=== PATIENT | male | born 1965 | race Caucasian/White ===

== ENCOUNTER 2022-05-28 12:03 | Emergency (ER) | payer MEDICAID, SELFPAY ==
[2022-05-28 12:48] VITALS: BP 163/100; PULSE 91; RESP 18; TEMP 36.6; O2SAT 98; BMI 22.6
--- NOTE | 2022-05-28 14:13 | ED.BACK ---
HPI - Back Pain/Injury General Chief Complaint: Back Pain/Injury Stated Complaint: Fall/Back pain Time Seen by Provider: 05/28/22 14:13 Source: patient Mode of arrival: ambulatory History of Present Illness HPI Narrative: 56-year-old male with no significant past medical history presenting to the ED complaining of right arm right knee, and right-sided low back pain x2 years. States does not currently take any medications, he states he used to take medications 1 year ago. Is not from the area. Denies recent injury, trauma, fall, weakness, numbness, tingling, urinary incontinence/retention, fever MD elicited complaint: back pain Onset (ago): year(s) Related Data Previous Rx's Medication Instructions Recorded acetaminophen 500 mg tablet 500 mg PO Q6H PRN fever or pain 05/28/22 (Tylenol Extra Strength) #14 tabs cyclobenzaprine 5 mg tablet 5 mg PO Q8H PRN pain (scale score 05/28/22 7-10) 5 days #14 tabs lidocaine 5 % topical patch 1 patch topical DAILY PRN pain #30 05/28/22 (Lidoderm) ea naproxen 500 mg tablet 500 mg PO BID PRN pain 10 days #20 05/28/22 tabs Allergies Allergy/AdvReac Type Severity Reaction Status Date / Time No Known Allergies Allergy Verified 05/28/22 14:22 Review of Systems Review of Systems: Constitutional: No Fever, No Chills,No Fatigue, No Malaise ENT/Mouth: No Ear Pain, No Nasal Congestion, No Sinus Pain, No Hoarseness, No sore throat, No Rhinorrhea, No Swallowing Difficulty Eyes: No Eye Pain, No Swelling, No Redness, No Vision Changes Cardiovascular: No Chest Pain, No SOB, No Edema, No Palpitations Respiratory: No Cough, No Sputum, No Wheezing, No Smoke Exposure, No Dyspnea Gastrointestinal: No Nausea, No Vomiting, No Diarrhea, No Constipation, No Abdominal pain Genitourinary: No irregular bleeding, No Dysuria, No Urinary Frequency, No Hematuria, No Urinary Incontinence/retention, No Urgency, No Flank Pain, No Urinary Flow Changes, No Hesitancy Musculoskeletal: + joint pain, + Myalgias, No Joint Swelling Skin: No Skin Lesions, No rash Neuro: No Weakness, No Numbness, No Paresthesias, No Dizziness, No Headache Yes all other systems are reviewed and are negative Constitutional: Constitutional: Reports as per [facility] Past Medical History Attestation statement: The following information was validated with the patient. Social History Social History Advance Directives: No Advance Directives Information Provided: No Physical Exam Vital Signs: Vital Signs: Last Vital Signs Temp 98.9 F 05/28/22 15:51 Pulse 86 05/28/22 15:51 Resp 18 05/28/22 15:51 BP 114/79 05/28/22 15:51 Pulse Ox 100 05/28/22 15:51 O2 Del Method 05/28/22 15:51 BMI result Body Mass Index 22.6 Const: General: cooperative, healthy appearing and no acute distress Orientation/consciousness: patient oriented x3 Limitations: no limitations HEENT: Head: Yes normal to inspection and Yes atraumatic Ears: hearing grossly normal bilaterally General nose exam: Normal external nose present Face and sinus: Yes normal facial exam Eyes: General: appearance normal, both eyes and all related structures EOM: EOMs intact bilaterally Neck: Other: No midline cervical spinous tenderness Neck: Yes normal visual inspection, Yes full ROM and Yes no meningeal signs Resp: Effort & Inspection: normal respiratory effort and no respiratory distress Cardio: Rate: regular rate Heart sounds: S1 normal heart sound present and S2 normal heart sound present Peripheral pulses: Peripheral pulses 2+ throughout : General: Yes no CVA tenderness Back/Spine/Pelvis: Other: No midline thoracic/lumbar spinous tenderness/step-off or deformity. + mild right-sided lower lumbar MSK tenderness Back: no CVA tenderness Skin: Rashes: no rashes Wounds: no wounds Neuro: Other: Strength intact throughout. No saddle anesthesia. Sensation intact to light touch. Neurovascular intact distally. General: patient oriented x3, tone normal, moves all extremities, no meningeal signs and no focal motor deficits Gait exam (Neuro): Normal gait present Motor exam (neuro): 5/5 motor strength present throughout Extrem: Other: Right shoulder without deformity. Nontender to palpation. Full range of motion intact. Neurovascularly intact Right knee mildly tender, full range of motion intact. No deformity General: Yes normal to inspection, Yes full ROM and Yes capillary refill normal Course Course Course Narrative: -1554--BP improved after pain medication Results discussed with patient including worrisome signs and symptoms and strict return precautions, and when to return to the emergency department. They verbalized understanding and feel safe for discharge at this time. MDM - Back Pain/Injury MDM Narrative Medical decision making narrative: 56-year-old male with no significant past medical history presenting to the ED complaining of right arm right knee, and right-sided low back pain x2 years. On exam vital signs stable, NAD, nontoxic appearing, physical exam as above, no midline spinous tenderness throughout or red flag symptoms. Concern for acute on chronic musculoskeletal pain vs arthralgia vs osteoarthritis. Low suspicion for cauda equina, cord compression, dislocation, fracture or epidural abscess Plan: Symptomatic remedies, PCP follow-up Differential Diagnosis Differential diagnosis: Likely lumbar radiculopathy, sciatica and strain of lumbar region Medical Records Attestation: I reviewed the patient's medical records. Lab Data Attestation: I reviewed the patient's lab results. Discharge Plan Discharge Clinical Impression: Musculoskeletal pain Patient Disposition: Home, Self-Care Instructions: Musculoskeletal Pain (ED) Additional Instructions: Your pain is likely musculoskeletal Flexeril is a muscle relaxer, take at night as it makes you drowsy, do not drive, drink alcohol, or operate machinery while taking it Naproxen as an anti-inflammatory / pain medication, take with food Lidoderm patches are numbing patches, apply to painful area In addition take Tylenol at home If symptoms persist or worsen, pain becomes unbearable, you developed urinary retention or incontinence, or weakness return to the ED Es probable que jaffe dolor sea musculoesquel?negrito Flexeril es un relajante muscular, t?carlitos por la noche ya que te adormece, no conduzcas, bebas alcohol ni operes maquinaria mientras lo lilliam. Naproxeno maya medicamento antiinflamatorio/analg?sico, t?pro con alimentos Los parches de Lidoderm son parches anest?sicos, se aplican en el ?arian dolorida Adem?s aagta Tylenol en casa Si los s?ntomas persisten o empeoran, el dolor se vuelve insoportable, desarroll? retenci?n urinaria o incontinencia, o debilidad, regrese al servicio de urgencias. Prescriptions: New acetaminophen [Tylenol Extra Strength] 500 mg tablet 500 mg PO Q6H PRN (Reason: fever or pain) Qty: 14 0RF lidocaine [Lidoderm] 5 % adhesive patch,medicated 1 patch topical DAILY MDD remove after 12 hours PRN (Reason: pain) Qty: 30 0RF Rx Instructions: leave on most painful area for up to 12 hrs naproxen 500 mg tablet 500 mg PO BID PRN (Reason: pain) 10 Days Qty: 20 0RF cyclobenzaprine 5 mg tablet 5 mg PO Q8H PRN (Reason: pain (scale score 7-10)) 5 Days Qty: 14 0RF Referrals: [facility] [Primary Care Provider] - 1 week Print Language: Hungarian
[2022-05-28] MEDS: Cyclobenzaprine HCl 5 MG TABLET PO (15:04)
[2022-05-28] MEDS: Ketorolac Tromethamine 30 MG/ML VIAL IM (15:05)
[2022-05-28] MEDS: Lidocaine 4 % Patch ADH..PATCH 1 PATCH TRANSDERMA (15:06)
[2022-05-28 15:51] VITALS: BP 114/79; PULSE 86; RESP 18; TEMP 37.2; O2SAT 100
== END 2022-05-28 16:10 | disposition home or self-care (01) ==
PROVIDERS: Emergency Provider Emergency Medicine
DX: M54.50 Low back pain, unspecified (principal); Z79.899 Other long term (current) drug therapy
CPT/HCPCS: 96372; 99282; 99283; 99284; J1885

== ENCOUNTER 2022-06-06 15:42 | Outpatient (REF) | payer MEDICAID, SELFPAY ==
--- NOTE | ~2022-06-06 | XR_ITS ---
EXAMINATION: XR HIP, RIGHT CLINICAL INFORMATION: Right hip pain COMPARISON: Radiographs lumbar spine 06/06/2022 TECHNIQUE: Two views of the right hip. FINDINGS: There is severe osteoarthritis right hip with near complete loss of the superior joint space, subchondral sclerosis, and scattered prominent geodes. There is circumferential osteophytes base femoral head and spurring from the acetabulum. Small detached acetabular spur suggested superior lateral acetabular rim. No dislocation or destructive process. XR/XR hip RT min 2V IMPRESSION: Severe osteoarthritis right hip.
--- NOTE | ~2022-06-06 | XR_ITS ---
EXAMINATION: XR SHOULDER, RIGHT CLINICAL INFORMATION: Right shoulder pain COMPARISON: None TECHNIQUE: Right shoulder is imaged in 4 views. FINDINGS: No fracture, dislocation, destructive process. The glenohumeral joint appears normal. The acromioclavicular alignment is normal. There are mild degenerative changes acromioclavicular joint. Minor spurring from the greater tuberosity and superior lateral acromium. No visible rotator cuff calcifications. XR/XR shoulder RT min 2V IMPRESSION: 1. Mild degenerative changes acromioclavicular joint. 2. No visible rotator cuff calcifications.
--- NOTE | ~2022-06-06 | XR_ITS ---
EXAMINATION: XR KNEE, RIGHT CLINICAL INFORMATION: Right knee pain COMPARISON: None TECHNIQUE: Three views of the right knee. FINDINGS: No fracture, dislocation, or definite effusion. Hoffa's fat pad appears normal. No joint narrowing or erosive change or chondrocalcinosis. No lateralization or tilting patella. XR/XR knee RT 3V IMPRESSION: Unremarkable right knee.
--- NOTE | ~2022-06-06 | XR_ITS ---
EXAMINATION: XR LUMBOSACRAL SPINE WITH OBLIQUES CLINICAL INFORMATION: Low back pain COMPARISON: Radiographs right hip 06/06/2022 TECHNIQUE: Lumbar spine is imaged in 5 views: AP, lateral, lateral view coned to lumbosacral junction, and bilateral oblique. FINDINGS: Normal lumbar segmentation with 5 nonrib-bearing lumbar vertebrae of normal height and normal lumbar lordosis. No lumbar vertebral compression or destructive process. There are degenerative disc changes lower thoracic spine, T11-T12 with bridging anterior and lateral osteophytes and lesser degenerative disc changes at T12-L1. There are mild degenerative disc changes at L4-L5 with disc narrowing and grade 0-1 spondylolisthesis. Oblique view show no spondylolysis. The SI joints and visualized sacrum are unremarkable. There is marked right hip arthropathy as noted on the hip radiographs. XR/XR lumbar spine 4V min IMPRESSION: 1. Degenerative disc changes lower thoracic spine. 2. Mild degenerative disc changes L4-L5 with grade 0-1 spondylolisthesis. 3. No vertebral compression or destructive process. 4. Marked right hip arthropathy as noted on hip radiographs.
== END 2022-06-06 15:43 | disposition home or self-care (01) ==
LOC: HO.XRAY 15:42
PROVIDERS: Visit Provider Internal Medicine
DX: M25.561 Pain in right knee (principal); M25.551 Pain in right hip; M54.50 Low back pain, unspecified; M25.511 Pain in right shoulder
CPT/HCPCS: 72110; 73030; 73502; 73562

== ENCOUNTER 2022-06-28 09:31 | Outpatient (REF) | payer MEDICAID, SELFPAY ==
--- NOTE | ~2022-06-28 | XR_ITS ---
EXAMINATION: XR PELVIS CLINICAL INFORMATION: Pain COMPARISON: Right hip x-ray May 2022 TECHNIQUE: AP view of the pelvis. FINDINGS: There is severe right hip arthritis with joint space narrowing, osteophyte formation and subchondral cyst formation. There is mild left hip arthritis with small osteophytes and joint space narrowing. Bones of the pelvis are normal. Sacroiliac joints are normal. Soft tissues are normal. XR/XR pelvis 1-2V IMPRESSION: Severe right arthritis. Mild left hip arthritis.
== END 2022-06-28 09:32 | disposition home or self-care (01) ==
LOC: HO.HOSX 09:31
PROVIDERS: Visit Provider Orthopaedic Surgery
DX: M75.42 Impingement syndrome of left shoulder (principal); M16.11 Unilateral primary osteoarthritis, right hip
CPT/HCPCS: 20610; 72170; 99202; J1100

== ENCOUNTER 2022-07-13 09:43 | Emergency (ER) | payer MEDICAID, SELFPAY ==
--- NOTE | ~2022-07-13 | XR_ITS ---
EXAMINATION: XR CHEST CLINICAL INFORMATION: Chest pain, weakness and nausea. COMPARISON: None TECHNIQUE: 2 views of the chest were obtained. FINDINGS: No significant abnormality is noted involving the heart, lungs, mediastinum, bony thorax or soft tissues. XR/XR chest 2V IMPRESSION: No acute cardiopulmonary process.
[2022-07-13 09:59] VITALS: BP 155/83; BP 178/124; PULSE 93; PULSE 94; RESP 16; TEMP 36.8; O2SAT 96; O2SAT 97; BMI 32.3
--- NOTE | 2022-07-13 10:04 | ECG_ITS ---
Test Reason : COUGH Blood Pressure : / mmHG Vent. Rate : 090 BPM Atrial Rate : 090 BPM P-R Int : 152 ms QRS Dur : 088 ms QT Int : 348 ms P-R-T Axes : 066 -36 033 degrees QTc Int : 425 ms Normal sinus rhythm Left anterior fascicular block Nonspecific T wave abnormality Inferior leads Abnormal ECG No previous ECGs available Referred By: Bita Dennis Electronically Signed By:EDWARD KOO MD
--- NOTE | 2022-07-13 10:11 | ED_ITS ---
HPI - Chest Pain General Chief Complaint: Upper Respiratory Symptoms Stated Complaint: L SIDE PAIN W/COUGH Time Seen by Provider: 07/13/22 09:48 Source: patient Mode of arrival: ambulatory Limitations: no limitations History of Present Illness HPI narrative: Patient is a 57-year-old male presents to the emergency department for evaluation of cough with right lateral chest pain. He reports that the cough began yesterday, is mildly productive with clear. He states that this morning approximately 4 hours prior to arrival he developed pain to the right lower lateral chest after coughing. He states ?something pop?. Pain has been constant since then. The pain is made worse with movement, coughing pain on chaz p expiration. He denies any fall or precipitating injury recently that may have provoked this. Denies fevers, chills, nasal congestion, sore throat, anterior chest pain, shortness of breath, difficulty breathing, nausea, vomiting, abdominal pain. Denies any history of DVT/PE, personal history of cancer, prolonged immobilization, recent travel, calf pain, calf swelling or tenderness. Related Data Previous Rx's Medication Instructions Recorded acetaminophen 500 mg tablet 500 mg PO Q6H PRN fever or pain 05/28/22 (Tylenol Extra Strength) #14 tabs cyclobenzaprine 5 mg tablet 5 mg PO Q8H PRN pain (scale score 05/28/22 7-10) 5 days #14 tabs lidocaine 5 % topical patch 1 patch topical DAILY PRN pain #30 05/28/22 (Lidoderm) ea naproxen 500 mg tablet 500 mg PO BID PRN pain 10 days #20 05/28/22 tabs Allergies Allergy/AdvReac Type Severity Reaction Status Date / Time No Known Allergies Allergy Verified 06/28/22 10:27 Review of Systems Review of Systems: Constitutional : No Weight loss, No Fever, No Chills ENT/Mouth :? No sore throat, No Rhinorrhea Eyes: No Eye Pain, No Swelling Cardiovascular : pos Chest Pain, no SOB, no Dyspnea on Exertion, No Orthopnea, No Edema, No Palpitations Respiratory : Positive Cough, positive Sputum Gastrointestinal : pos Nausea, No Vomiting, No Diarrhea, No abdominal Pain, No Hematochezia, No Melena Genitourinary : No Dysuria, No Urinary Frequency Musculoskeletal : No joint pain, No Myalgias, No Joint Swelling Skin : No Skin Lesions, No rash Neuro : No Weakness, No Numbness, No Dizziness, No Headache Psych : No Anxiety/Panic, No Depression Yes all other systems are reviewed and are negative [facility] Past Medical History Attestation statement: The following information was validated with the patient. Source: old records reviewed Social History Social History Advance Directives: No Advance Directives Information Provided: No Physical Exam Vital Signs: Vital Signs: Last Vital Signs Temp 98.2 F 07/13/22 09:59 Pulse 94 07/13/22 09:59 Resp 16 07/13/22 09:59 BP 155/83 H 07/13/22 09:59 Pulse Ox 96 07/13/22 09:59 O2 Del Method 07/13/22 09:59 BMI result Body Mass Index 32.3 Appearance: Alert.?Oriented to person, place and time. No acute distress.?Normal affect. Eyes: Pupils equal, round and reactive to light.? ENT: Pharynx normal.?? Neck: Normal inspection.? Neck supple.?? CVS: Heart sounds normal. Normal heart rate and rhythm.? Pulses normal.?? Respiratory: No respiratory distress.? Lung sounds mild right lobes, clear at the bases.??tenderness upon palpation to the right lateral chest wall along area of 5th through 7th rib Abdomen: Soft and non-tender. Normoactive bowel sounds. Skin: Skin warm and dry.? Normal skin color.? Extremities: No lower extremity edema.? Neuro: Moves all extremities spontaneously. Sensation intact bilaterally. No focal neuro deficits. Ambulates with normal steady gait. Course Course Course Narrative: Patient is a 57-year-old male with a past medical history of hypertension presenting to emergency department for evaluation of cough with right lateral chest pain. The time of examination he is overall well-appearing. He is afebrile without hypoxia or tachypnea, no significant tachycardia. Examination is overall benign, he has some mild rhonchi in the upper lobes and tenderness w ith palpation along the right lateral chest wall. I suspect pain to be most likely musculoskeletal in nature given history and physical examination. However, the past medical history and age will obtain CBC, CMP, troponin, EKG, and chest x-ray. Patient took naproxen this morning approximately 30 minutes prior to arrival. Will medicate with acetaminophen at this time. Disposition pending results. Reevaluation(s) Reevaluation #1: CMP reveals a very mild leukocytosis 11.4 which may be inflammatory in nature. CMP is unremarkable. Troponin <3.5, EKG reveals a normal sinus rhythm without acute ischemic findings, given duration of constant waxing and waning chest pain, unlikely to be secondary to ACS at this time. Chest x-ray reveals no acute cardiopulmonary process. At this time suspect pain to be related to acute costochondritis, discussed plan of care for discharge home rest ice/heat to the area, acetaminophen/ibuprofen as needed for pain, outpatient follow-up with primary care provider within 2 days. Discussed worrisome signs and symptoms return back to emergency department for. All questions answered. patient discharged home in stable condition. Time: 12:09 Medications Administered Discontinued Medications Generic Name Dose Route Start Last Admin Trade Name Freq PRN Reason Stop Dose Admin Acetaminophen 975 mg 07/13/22 10:04 07/13/22 10:42 Acetaminophen 325 Mg Tablet PO 07/13/22 10:05 975 mg ONCE ONE Administration MDM - Chest Pain Medical Records Data Attestation: I reviewed the patient's medical records. Lab Data Attestation: I reviewed the patient's lab results. Result diagrams: 07/13/22 10:52 07/13/22 10:52 Labs: Lab Results 07/13/22 07/13/22 07/13/22 Range/Units 10:52 10:52 10:52 WBC 11.4 H (4.8-10.8) X10*3/uL RBC 4.60 (4.60-5.80) X10*6/uL Hgb 14.5 (14.0-18.0) g/dl Hct 44.0 (42.0-52.0) % MCV 95.7 (80.0-98.0) fL MCH 31.5 (27.0-33.0) pg MCHC 33.0 (31.0-36.0) g/dl RDW 14.1 (11.0-16.0) % Plt Count 341 (160-400) X10*3/uL MPV 8.9 L (9.4-12.4) fL Immature Gran % (Auto) 2.4 H (0.0-0.4) % Neut % (Auto) 63.2 (45-73) % Lymph % (Auto) 21.0 (20-40) % [place] % (Auto) 8.5 (2-11) % Eos % (Auto) 3.8 (0-4) % Baso % (Auto) 1.1 (0-2) % Lymph # (Auto) 2.4 (1.2-4.9) X10*3/uL [place] # (Auto) 1.0 (0.1-1.2) X10*3/uL Eos # (Auto) 0.4 (0.0-0.4) X10*3/uL Baso # (Auto) 0.1 (0.0-0.2) X10*3/uL Abs Immat Gran (auto) 0.27 H (0.00-0.03) X10*3/uL Absolute Neuts (auto) 7.2 (2.0-8.3) x10*3/uL Absolute Nucleated RBC 0.000 (0.0-0.012) X10*3/uL Nucleated RBC % (auto) 0.0 (0.0-0.2) /100WBC Sodium 140 (135-145) mmol/L Potassium 5.1 (3.3-5.1) mmol/L Chloride 103 (96-108) mmol/L Carbon Dioxide 27 (22-29) mmol/L Anion Gap 15 (12-20) BUN 14 (9-16) mg/dL Creatinine 0.83 (0.5-1.4) mg/dL Estim Creat Clear Calc 103.5 Estimated GFR > 60 Random Glucose 104 (60-115) mg/dL Calcium 9.8 (8.4-10.2) mg/dL Total Bilirubin 0.4 (0.0-1.0) mg/dL AST 27 (5-37) U/L ALT 38 (0-40) U/L Alkaline Phosphatase 122 H (39-117) U/L Troponin I High Sens (<3.5-35.0) ng/L Total Protein 7.5 (6.5-8.0) g/dL Albumin 4.1 (3.5-5.0) g/dL COVID-19 ([facility]) (Negative) COVID-19 Clin Com Influenza Type A ([facility]) Negative (Negative) Influenza Type B ([facility]) Negative (Negative) Influenza A & B Note See Note 07/13/22 07/13/22 Range/Units 10:52 10:52 WBC (4.8-10.8) X10*3/uL RBC (4.60-5.80) X10*6/uL Hgb (14.0-18.0) g/dl Hct (42.0-52.0) % MCV (80.0-98.0) fL MCH (27.0-33.0) pg MCHC (31.0-36.0) g/dl RDW (11.0-16.0) % Plt Count (160-400) X10*3/uL MPV (9.4-12.4) fL Immature Gran % (Auto) (0.0-0.4) % Neut % (Auto) (45-73) % Lymph % (Auto) (20-40) % [place] % (Auto) (2-11) % Eos % (Auto) (0-4) % Baso % (Auto) (0-2) % Lymph # (Auto) (1.2-4.9) X10*3/uL [place] # (Auto) (0.1-1.2) X10*3/uL Eos # (Auto) (0.0-0.4) X10*3/uL Baso # (Auto) (0.0-0.2) X10*3/uL Abs Immat Gran (auto) (0.00-0.03) X10*3/uL Absolute Neuts (auto) (2.0-8.3) x10*3/uL Absolute Nucleated RBC (0.0-0.012) X10*3/uL Nucleated RBC % (auto) (0.0-0.2) /100WBC Sodium (135-145) mmol/L Potassium (3.3-5.1) mmol/L Chloride (96-108) mmol/L Carbon Dioxide (22-29) mmol/L Anion Gap (12-20) BUN (9-16) mg/dL Creatinine (0.5-1.4) mg/dL Estim Creat Clear Calc Estimated GFR Random Glucose (60-115) mg/dL Calcium (8.4-10.2) mg/dL Total Bilirubin (0.0-1.0) mg/dL AST (5-37) U/L ALT (0-40) U/L Alkaline Phosphatase (39-117) U/L Troponin I High Sens < 3.5 (<3.5-35.0) ng/L Total Protein (6.5-8.0) g/dL Albumin (3.5-5.0) g/dL COVID-19 ([facility]) Negative (Negative) COVID-19 Clin Com See Note Influenza Type A ([facility]) (Negative) Influenza Type B ([facility]) (Negative) Influenza A & B Note Imaging Data Chest x-ray: Radiologist's impression: XR/XR chest 2V IMPRESSION: No acute cardiopulmonary process. ECG Data ECG #1: Attestation: I personally reviewed and interpreted this ECG as follows: ECG interpretation date: 07/13/22 Prior ECG tracings: not available for review Interpretation: Rate: 90 Rhythm:? Normal sinus rhythm Normal P waves.? Normal MARYLU.?? Normal QRS complex.?? ST T wave :??J-point elevation. No ST elevation, no ST depressions, no T-wave inversion qTC: 425 prior studies:? None available for review The study has been interpreted contemporaneously by me. Discharge Plan Discharge Clinical Impression: Acute costochondritis Patient Disposition: Home, Self-Care Instructions: Costochondritis (ED) Additional Instructions: Your chest x-ray, blood work, EKG were all normal. Your pain is likely muscular in nature as we discussed. You can take ibuprofen 200 mg, 3 tablets (600mg) every 6-8 hours as needed for pain, in addition to Tylenol 500 mg, 2 tablets (1,000mg) every 4-6 hours as needed for pain, but not to exceed 3 doses daily (3,000mg).? Be sure to rest over the next few days. Apply ice/heat to the area pain for 10- 15 minutes 4-6 times daily. Follow-up with primary care provider within 2 days Return to the emergency department any new or worsening symptoms or concerns. Prescriptions: No Action acetaminophen [Tylenol Extra Strength] 500 mg tablet 500 mg PO Q6H PRN (Reason: fever or pain) Qty: 14 0RF lidocaine [Lidoderm] 5 % adhesive patch,medicated 1 patch topical DAILY MDD remove after 12 hours PRN (Reason: pain) Qty: 30 0RF Rx Instructions: leave on most painful area for up to 12 hrs naproxen 500 mg tablet 500 mg PO BID PRN (Reason: pain) 10 Days Qty: 20 0RF cyclobenzaprine 5 mg tablet 5 mg PO Q8H PRN (Reason: pain (scale score 7-10)) 5 Days Qty: 14 0RF Referrals: Physician,None [Primary Care Provider] -
[2022-07-13] MEDS: Acetaminophen 325 MG TABLET 975 MG PO (10:42)
[2022-07-13 11:04] LABS: MANUAL DIFF FLAG NO
[2022-07-13 11:07] LABS: Basophils Absolute Auto 0.1 X10*3/uL (0.0-0.2); Basophils Percent Auto 1.1 % (0-2); Eosinophils Absolute Auto 0.4 X10*3/uL (0.0-0.4); Eosinophils Percent Auto 3.8 % (0-4); Hemoglobin 14.5 g/dl (14.0-18.0); Imm Gran Abs Auto 0.27 X10*3/uL (0.00-0.03); Imm Gran Pct Auto 2.4 % (0.0-0.4); Lymphocytes Absolute Auto 2.4 X10*3/uL (1.2-4.9); Mean Corpuscular Hemoglobin 31.5 pg (27.0-33.0); Mean Corpuscular Volume 95.7 fL (80.0-98.0); Mean Platelet Volume 8.9 fL (9.4-12.4); Monocytes Percent Auto 8.5 % (2-11); Neutrophils Absolute Auto 7.2 x10*3/uL (2.0-8.3); Neutrophils Percent Auto 63.2 % (45-73); Platelet Count 341 X10*3/uL (160-400); Red Cell Distribution Width 14.1 % (11.0-16.0); White Blood Count 11.4 X10*3/uL (4.8-10.8)
[2022-07-13 11:25] LABS: COVID-19 Test Negative (Negative); IDNOW Serial# BCCEAD1C
[2022-07-13 11:28] LABS: IDNOW Serial# 16C4AD1C; Influenza A Negative (Negative); Influenza B2 Negative (Negative)
[2022-07-13 11:32] LABS: Alanine Aminotransferase 38 U/L (0-40); Albumin Level 4.1 g/dL (3.5-5.0); Alkaline Phosphatase 122 U/L (39-117); Anion Gap 15 (12-20); Aspartate Amino Transferase 27 U/L (5-37); Bilirubin Total 0.4 mg/dL (0.0-1.0); Blood Urea Nitrogen 14 mg/dL (9-16); Calcium 9.8 mg/dL (8.4-10.2); Carbon Dioxide 27 mmol/L (22-29); Chloride 103 mmol/L (96-108); Creatinine Clr Calc Pharmacy 103.5; Estimated Glomerular Filt Rate > 60; Glucose Random 104 mg/dL (60-115); Potassium 5.1 mmol/L (3.3-5.1); Sodium 140 mmol/L (135-145); Total Protein 7.5 g/dL (6.5-8.0)
[2022-07-13 11:37] LABS: Troponin-I High Sensitivity < 3.5 ng/L (<3.5-35.0)
== END 2022-07-13 12:41 | disposition home or self-care (01) ==
PROVIDERS: Nurse Practitioner Family; Emergency Provider Emergency Medicine Emergency Medical Services
DX: M94.0 Chondrocostal junction syndrome [Tietze] (principal); R05.9 Cough, unspecified; Z20.822 Contact with and (suspected) exposure to COVID-19
CPT/HCPCS: 36415; 71046; 80053; 84484; 85025; 87502; 87635; 93005; 99283

== ENCOUNTER 2022-07-29 14:20 | Emergency (ER) | payer MEDICAID, SELFPAY ==
--- NOTE | ~2022-07-29 | CT_ITS ---
EXAMINATION: CT ANGIOGRAM OF THE CHEST WITH AND WITHOUT CONTRAST (CT PULMONARY ANGIOGRAM FOR PE) CLINICAL INFORMATION: Reason for Exam cp and elevated d-dimer COMPARISON: Chest radiograph 07/29/2022. TECHNIQUE: Prior to contrast administration, noncontrast localization images were obtained. Subsequently, multidetector volumetric imaging was performed from the thoracic inlet to below the diaphragms following the administration of 85 mL Omnipaque 350 intravenous contrast. No contrast reaction reported Sagittal, coronal, and MIP oblique sagittal reformatted images were obtained on the CT workstation, uploaded to PACS, and reviewed. This CT examination was performed using dose optimization techniques as appropriate, variously including the following: *Automated exposure control *Adjustment of mA and/or kV according to patient size (this includes techniques or standardized protocols for targeted exams where dose is matched to indication/reason for exam; i.e. extremities or head) *Use of iterative reconstruction technique Total exam dose-length product 381 mGy-cm FINDINGS: QUALITY OF STUDY/CONTRAST BOLUS: Satisfactory. PULMONARY ARTERIES: No intraluminal filling defects are noted within the visualized pulmonary arterial system to suggest the presence of pulmonary emboli. The main and central pulmonary arteries are normal in caliber. THORACIC AORTA: No aneurysm or dissection. LUNG: Mild focal groundglass opacity is present over an approximate 3.5 cm diameter region within the left upper pulmonary lobe. A small number scattered benign-appearing thin-walled subpleural cysts are present. PLEURA: A small dependent layering right pleural effusion (24 Hounsfield units) is noted. MEDIASTINUM: Partial visualization of at least mild scattered coronary artery calcific atherosclerosis. Normal heart size. No evidence of septal bowing or right heart strain. CHEST WALL/AXILLA: No axillary or internal mammary lymphadenopathy. OSSEOUS STRUCTURES: Mild-moderate multilevel anterior endplate osteophytosis. No vertebral body compression deformities. UPPER ABDOMEN: Unremarkable. No reflux of contrast into the hepatic veins to suggest elevated right heart pressures. CT/CT angio chest PE protocol IMPRESSION: *CT pulmonary angiogram negative for pulmonary emboli. *Mild left upper lobe round glass pulmonary opacities. Findings may represent mild focal alveolar this could also represent atypical/viral infection. *Small right pleural effusion. *Partial visualization of at least mild scattered coronary artery calcific atherosclerosis. VTE: negative
--- NOTE | ~2022-07-29 | XR_ITS ---
EXAMINATION: XR CHEST CLINICAL INFORMATION: Chest pain. COMPARISON: July 13, 2022. TECHNIQUE: 2 views of the chest were obtained. FINDINGS: No significant abnormality is noted involving the heart, lungs, mediastinum, bony thorax or soft tissues. XR/XR chest 2V IMPRESSION: Unremarkable examination.
--- NOTE | 2022-07-29 15:04 | ECG_ITS ---
Test Reason : cp Blood Pressure : / mmHG Vent. Rate : 097 BPM Atrial Rate : 097 BPM P-R Int : 142 ms QRS Dur : 080 ms QT Int : 336 ms P-R-T Axes : 063 -40 037 degrees QTc Int : 426 ms Normal sinus rhythm Left axis deviation Abnormal ECG When compared with ECG of 13-JUL-2022 10:29, No significant change was found Referred By: Herminia Hatch Electronically Signed By:HARIS GOODSON MD
[2022-07-29 16:04] VITALS: BP 181/97; PULSE 102; RESP 20; TEMP 36.5; O2SAT 98; BMI 32.3
--- NOTE | 2022-07-29 16:05 | ED.GENADULT ---
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 Anterior chest pain started a week ago, patient describe it as a constant dull aching pain to the anterior chest with no radiation. No relieving factor, patient is a smoker and been coughing causing increase the pain, no nausea, no vomiting, no shortness of breath. No recent travel or prolonged at immobilization, no history of PE or DVT. <Devan Fine MD - Last Filed: 07/30/22 02:49> Related Data Home medications: Previous Rx's Medication Instructions Recorded acetaminophen 500 mg tablet 500 mg PO Q6H PRN fever or pain 05/28/22 (Tylenol Extra Strength) #14 tabs cyclobenzaprine 5 mg tablet 5 mg PO Q8H PRN pain (scale score 05/28/22 7-10) 5 days #14 tabs lidocaine 5 % topical patch 1 patch topical DAILY PRN pain #30 05/28/22 (Lidoderm) ea naproxen 500 mg tablet 500 mg PO BID PRN pain 10 days #20 05/28/22 tabs albuterol sulfate 90 mcg/actuation 1 inh inhalation QID PRN shortness 07/29/22 aerosol inhaler of breath or wheezing #8.5 grams azithromycin 250 mg tablet See Rx Instructions PO .COMPLEX #6 07/29/22 (Zithromax Z-Adam) tabs prednisone 20 mg tablet 20 mg PO BID #10 tabs 07/29/22 <Herminia Hatch MD - Last Filed: 07/29/22 16:12> Allergies/adverse reactions: Allergies Allergy/AdvReac Type Severity Reaction Status Date / Time No Known Allergies Allergy Verified 07/29/22 16:09 <Herminia Hatch MD - Last Filed: 07/29/22 16:12> Review of Systems Review of Systems: All other systems are reviewed and are negative Constitutional: Reports as per HPI and Reports no additional constitutional complaints Eyes: Reports as per HPI and Reports no additional eye complaints Reports system reviewed and no additional complaints, except as documented Cardiovascular: Reports as per HPI and Reports no additional cardiovascular complaints Respiratory: Reports as per HPI and Reports no additional respiratory complaints Gastrointestinal: Reports as per HPI and Reports no additional gastrointestinal complaints Genitourinary: Reports no additional female genitourinary complaints Musculoskeletal: Reports no additional musculoskeletal complaints Skin/Breast: Reports system reviewed and no additional complaints, except as docu Psychiatric: Reports no additional psychiatric complaints Endocrine: Reports no additional endocrine complaints Hematologic/Lymphatic: Reports no additional hematologic/lymphatic complaints Allergic/Immunologic: Reports no additional allergic/immunologic complaints Reports system reviewed and no additional complaints, except as documented and Reports Abnormal speech present <Devan Fine MD - Last Filed: 07/30/22 02:49> [facility] Social History Social History: Social History Advance Directives: No <Herminia Hatch MD - Last Filed: 07/29/22 16:12> Physical Exam ED Vital Signs: Vital Signs - 24 hr 07/29/22 16:04 07/29/22 20:39 Temperature 97.7 F 99.0 F Pulse Rate 102 H 85 Respiratory Rate 20 20 Blood Pressure 181/97 H 139/69 Pulse Oximetry 98 96 Oxygen Delivery Method Room Air Room Air BMI result Body Mass Index 32.3 <Herminia Hatch MD - Last Filed: 07/29/22 16:12> Vital Signs - 24 hr 07/29/22 16:04 07/29/22 20:39 Temperature 97.7 F 99.0 F Pulse Rate 102 H 85 Respiratory Rate 20 20 Blood Pressure 181/97 H 139/69 Pulse Oximetry 98 96 Oxygen Delivery Method Room Air Room Air BMI result Body Mass Index 32.3 Vital signs have been reviewed as appeared to be correct. Blood pressure normal. Heart rate normal. Respiration rate normal. Temperature normal. Oxygen saturation normal. <Devan Fine MD - Last Filed: 07/30/22 02:49> Appearance: Alert. Oriented X3. No acute distress. Head: Normal external exam. Normocephalic. Atraumatic. No Mcnamara signs noted. No raccoon eyes noted Eyes: PERRLA. EOMI. Conjunctiva and sclera normal. Eyelids normal. ENT: TM's Normal. Pharynx normal. Uvula midline. Moist mucous membranes. No trismus noted. No drooling noted. No muffled voice noted. Neck: Normal inspection. Neck supple. FROM. No adenopathy. Thyroid Normal. No meningeal signs. No neck mass noted. CVS: Normal heart rate and rhythm. Heart sound normal. No murmurs noted. Pulses normal throughout. Respiratory: No respiratory distress. Painless inspiration. Breath sounds normal. Mild diffuse expiratory wheezing with prolonged expiration.. Chest nontender. No accessory muscle usage noted or decreased air movement noted. Abdomen: Soft and nontender. Bowel sounds normal in all 4 quadrants. No distention noted. No organomegaly noted. No visible injury noted. Back: No CVA tenderness. Full range of motion noted. Skin: Skin warm and dry. Normal skin color. Normal skin turgor. No rashes/lesions/lacerations noted. Extremities: No lower extremity edema. Extremities exhibit normal range of motion. Extremities nontender. Neuro: Oriented X 3. Cranial nerve exam: II-XII are grossly intact No motor deficit. No sensory deficit. Reflexes normal. <Devan Fine MD - Last Filed: 07/30/22 02:49> Course Course Course Narrative: 57M with cold like symptoms denies etoh but smokes cigarettes and now chest pain and upper abd pain. Denies fevers, chills, N/V, diarrhea. VS Reviewed GEN: Moderate discomfort HEENT: NC/AT, EOMI/PERRLA, Ears wnl, throat wnl PULM: no tachypnea, wheeze, rhonchi, rales, SpO2-98 CVS: ST, no murmurs Ext: warm, dry - labs, EKG, Trop <Herminia Hatch MD - Last Filed: 07/29/22 16:12> Reevaluation(s) Reevaluation #1: 57-year-old male with chest pain, physical exam is consistent with acute bronchitis, smoking cessation was discussed with the patient, patient had a CT of the chest to rule out PE due to elevated D-dimer. patient also was provided with instruction how to stop smoking, will start the patient on bronchodilator/Z-Adam/prednisone. <Devan Fine MD - Last Filed: 07/30/22 02:49> Medications Administered Discontinued Medications Generic Name Dose Route Start Last Admin Trade Name Freq PRN Reason Stop Dose Admin Iohexol 65 ml 07/30/22 01:30 07/30/22 01:31 Iohexol 350 Mg/Ml 100 Ml Infus..Btl IV 07/30/22 01:31 65 ml ONCE ONE Administration <Herminia Hatch MD - Last Filed: 07/29/22 16:12> Medications Administered Discontinued Medications Generic Name Dose Route Start Last Admin Trade Name Freq PRN Reason Stop Dose Admin Iohexol 65 ml 07/30/22 01:30 07/30/22 01:31 Iohexol 350 Mg/Ml 100 Ml Infus..Btl IV 07/30/22 01:31 65 ml ONCE ONE Administration <Devan Fine MD - Last Filed: 07/30/22 02:49> Medical Decision Making Medical Decision Making Differential Diagnoses: Differential diagnosis Differential Diagnosis: The differential diagnosis associated with the patient?s presentation includes: ACS/pneumonia/pneumothorax/pleurisy/acute bronchitis/viral pneumonia. <Devan Fine MD - Last Filed: 07/30/22 02:49> Independent interpretation of EKG, rhythm strip, radiology study: Independent interp EKG,rhythm strip, radiology study (Chest x-ray: My interpretation is No acute pathology) I performed an independent interpretation of the: EKG My interpretation is normal sinus rhythm at 97 beats per minutes, left axis deviation, normal intervals, no ST-T changes, no change from previous EKG. <Devan Fine MD - Last Filed: 07/30/22 02:49> Discharge Plan Discharge Clinical Impression: Atypical chest pain, Acute bronchitis <Herminia Hatch MD - Last Filed: 07/29/22 16:12> Patient Disposition: Home, Self-Care <Herminia Hatch MD - Last Filed: 07/29/22 16:12> Instructions: Chest Pain (ED), How to Stop Smoking (ED), Acute Bronchitis (ED) <Herminia Hatch MD - Last Filed: 07/29/22 16:12> Prescriptions: New albuterol sulfate 90 mcg/actuation HFA aerosol inhaler 1 inh inhalation QID PRN (Reason: shortness of breath or wheezing) Qty: 8.5 0RF prednisone 20 mg tablet 20 mg PO BID Qty: 10 0RF azithromycin [Zithromax Z-Adam] 250 mg tablet See Rx Instructions .ROUTE .COMPLEX Qty: 6 0RF Rx Instructions: For 250 mg dose pack: take 500 mg today (day 1), then 250 mg for 4 days (days 2-5) No Action acetaminophen [Tylenol Extra Strength] 500 mg tablet 500 mg PO Q6H PRN (Reason: fever or pain) Qty: 14 0RF lidocaine [Lidoderm] 5 % adhesive patch,medicated 1 patch topical DAILY MDD remove after 12 hours PRN (Reason: pain) Qty: 30 0RF Rx Instructions: leave on most painful area for up to 12 hrs naproxen 500 mg tablet 500 mg PO BID PRN (Reason: pain) 10 Days Qty: 20 0RF cyclobenzaprine 5 mg tablet 5 mg PO Q8H PRN (Reason: pain (scale score 7-10)) 5 Days Qty: 14 0RF <Herminia Hatch MD - Last Filed: 07/29/22 16:12> Referrals: Physician,None [Primary Care Provider] - <Herminia Hatch MD - Last Filed: 07/29/22 16:12>
[2022-07-29 18:00] LABS: MANUAL DIFF FLAG NO
[2022-07-29 18:04] LABS: Basophils Absolute Auto 0.1 X10*3/uL (0.0-0.2); Eosinophils Absolute Auto 0.6 X10*3/uL (0.0-0.4); Hematocrit 42.6 % (42.0-52.0); Hemoglobin 14.3 g/dl (14.0-18.0); Imm Gran Abs Auto 0.31 X10*3/uL (0.00-0.03); Imm Gran Pct Auto 2.1 % (0.0-0.4); Lymphocytes Absolute Auto 3.3 X10*3/uL (1.2-4.9); Lymphocytes Percent Auto 22.8 % (20-40); Mean Corpuscular HGB Conc 33.6 g/dl (31.0-36.0); Mean Corpuscular Hemoglobin 31.4 pg (27.0-33.0); Mean Corpuscular Volume 93.4 fL (80.0-98.0); Mean Platelet Volume 8.6 fL (9.4-12.4); Monocytes Absolute Auto 1.2 X10*3/uL (0.1-1.2); Monocytes Percent Auto 7.9 % (2-11); Neutrophils Absolute Auto 9.1 x10*3/uL (2.0-8.3); Neutrophils Percent Auto 62.2 % (45-73); Platelet Count 315 X10*3/uL (160-400); Red Blood Count 4.56 X10*6/uL (4.60-5.80); White Blood Count 14.6 X10*3/uL (4.8-10.8)
[2022-07-29 18:24] LABS: Alanine Aminotransferase 25 U/L (0-40); Albumin Level 4.1 g/dL (3.5-5.0); Alkaline Phosphatase 128 U/L (39-117); Anion Gap 13 (12-20); Aspartate Amino Transferase 17 U/L (5-37); Bilirubin Total 0.3 mg/dL (0.0-1.0); Blood Urea Nitrogen 14 mg/dL (9-16); Calcium 9.4 mg/dL (8.4-10.2); Carbon Dioxide 28 mmol/L (22-29); Chloride 103 mmol/L (96-108); Creatinine Clr Calc Pharmacy 97.6; Estimated Glomerular Filt Rate > 60; Glucose Random 90 mg/dL (60-115); Lipase 15 U/L (8-78); Potassium 4.6 mmol/L (3.3-5.1); Sodium 139 mmol/L (135-145); Total Protein 7.2 g/dL (6.5-8.0)
[2022-07-29 18:32] LABS: Troponin-I High Sensitivity 3.5 ng/L (<3.5-35.0)
[2022-07-29 20:39] VITALS: BP 139/69; PULSE 85; RESP 20; TEMP 37.2; O2SAT 96
[2022-07-29 21:35] LABS: Influenza A PCR NEGATIVE (Negative); Influenza B PCR NEGATIVE (Negative); Resp Syncy Virus RNA Qual PCR NEGATIVE (Negative); SARS COV2 PCR INHOUSE NEGATIVE (Negative)
[2022-07-29 23:50] LABS: D Dimer High Sensitivity 576 NG/ML
[2022-07-29 23:53] LABS: Troponin-I High Sensitivity 4.3 ng/L (<3.5-35.0)
[2022-07-30] MEDS: iohexoL 350 MG/ML 100 ML INFUS..BTL 65 ML IV (01:31)
[2022-07-30 02:48] VITALS: BP 147/84; PULSE 91; RESP 19; TEMP 36.4; O2SAT 93
--- NOTE | 2022-07-30 03:05 | PC.NURSE ---
Discharge instructions given and explained to patient. Patient ambulates safely and independently. No apparent distress. Patient is able to speak in full sentences. All of patient's questions have been answered. IV cath tip intact when removed.
== END 2022-07-30 03:07 | disposition home or self-care (01) ==
PROVIDERS: Student in an Organized Health Care Education/Training Program; Emergency Provider Emergency Medicine
DX: J40 Bronchitis, not specified as acute or chronic (principal); R07.89 Other chest pain; M79.10 Myalgia, unspecified site; Z20.822 Contact with and (suspected) exposure to COVID-19; Z79.899 Other long term (current) drug therapy
CPT/HCPCS: 0241U; 36415; 71046; 71275; 80053; 83690; 84484; 85025; 85379; 93005; 99284; 99285; Q9967

== ENCOUNTER → 2022-09-18 08:55 | Outpatient (BNVA) | payer MEDICAID, SELFPAY | PROVIDERS: PCP Internal Medicine Geriatric Medicine; Referring Provider Internal Medicine Geriatric Medicine; Visit Provider Internal Medicine Cardiovascular Disease | DX: R07.89 Other chest pain (principal) | CPT/HCPCS: 99202 ==

== ENCOUNTER → 2022-09-25 15:02 | Outpatient (REF) | payer MEDICAID, SELFPAY ==
--- NOTE | 2022-09-25 15:07 | CA_ITS ---
Transthoracic Echocardiogram Patient (Last, First, Middle): Cameron Caldreon, Gender: Male Date of : 1965 Age: 57 Procedure Date: 09/25/2022 Procedure Type: Transthoracic Echocardiogram Location: OP Height: 172.72 cm Weight: 95.26 kg BSA: 2.09 m2 Heart Rate: 77 bpm BP: 112 / 68 mmHg Delivery Room Supervisor: HALIE Referring MD: Darius Estrada MD Technical Support Director: Darius Estrada MD Symptoms: R07.89 - Other chest pain Study Quality: Adequate ECG Rhythm: Sinus Conclusions: - 1. Normal LV systolic function with grade 1 diastolic dysfunction 2. Normal cardiac valvular Doppler 3. No gross pericardial effusion Findings Left Ventricle Normal left ventricular size, thickness, and systolic function. The visually estimated ejection fraction is between 60-65%. Spectral Doppler is indicative of an impaired relaxation filling pattern. E/E prime ratio is <8, consistent with normal filling pressures. Evidence suggests grade I (mild) diastolic dysfunction. Right Ventricle Normal right ventricular cavity size and systolic function. Atria Both atria are normal in size. There is lipomatous hypertrophy of the interatrial septum. There is no evidence of interatrial shunt. Aortic Valve The aortic valve structure and function is likely normal. There is no aortic valve stenosis. There is no aortic valve regurgitation. Mitral Valve Normal mitral valve structure and function. There is trace mitral valve regurgitation. There is no mitral valve stenosis. Pulmonic Valve The pulmonic valve is likely normal. Tricuspid Valve Likely normal tricuspid valve structure and function. Tricuspid regurgitation envelope is inadequate for calculation of right ventricular systolic pressure. Normal right atrial pressure. Great Vessels All visible segments of the aorta are normal in size. The pulmonary artery was not well visualized. Venous The inferior vena cava is normal in size and collapses greater than 50% with inspiration. Pericardium/Pleural There is no evidence of pericardial effusion. Prior Study Comparison No prior study available for comparison. Measurements 2D Linear Measurements IVSd: 1.13 0.6-0.9/0.6-1.0 cm LVIDd: 4.91 3.9-5.3/4.2-5.9 cm LVIDd Index: 2.35 2.4-3.2/2.2-3.1 cm/m2 LVIDs: 2.95 2.0-3.6 cm LVPWd: 0.84 0.7-1.1 cm Ao Root: 3.50 2.1-3.5 cm LA Diam: 3.80 2.7-3.8/3.0-4.0 cm LAIDs Index: 1.82 1.5-2.3 cm/m2 LV Mass: 216.02 67-162/88-224 g LV Mass Index: 103.36 43-95/49-115 g/m2 LVOT Diam: 2.30 3.0+(-)1.3 cm 2D Systolic Function EF 4C: 60.40 >55% EF 2C: 62.50 >55% EF BiP: 62.10 >55% Mitral Valve MV Pk E: 0.69 MV PK A: 0.95 MV Decel Time: 184.00 E/A: 0.70 E'Lateral: 7.83 E'Medial: 6.42 E/E' Med: 10.70 E/E' Lat: 8.80 PHT: 54.00 MVA PHT: 4.07 Decel [place]: 3.72 Aortic Valve AoV Pk Lenny: 1.85 AoV Pk Grad: 14.00 KATIE: 2.56 LVOT LVOT Pk Lenny: 1.14 LVOT Mn Lenny: 0.71 LVOT VTI: 0.20 LVOT Pk Grad: 5.00 LVOT Mn Grad: 2.00 LVOT Diam: 2.30 LVOT Area: 4.15 Diastolic Function MV Pk E: 0.69 MV Pk A: 0.95 E/A: 0.70 E'Medial: 6.42 E/E' Med: 10.70 E' Laterial: 7.83 E/E' Lat: 8.80 Right Ventricle TAPSE (mm): 22.30 TVS' Lenny: 14.90 Tricuspid Valve RA Press: 3.00 Great Vessels Aorta Ao Root-2D: 3.50 2.0-3.7 cm Sinus of Valsalva: 3.50 2.0-3.5 cm Ao Asc: 3.10 2.1-3.4 cm Pulmonary Veins Pulm Vein S/D 1.50 Pulmonary Valve PV Pk Lenny: 1.10 Peak PV Grad: 5.00 Updated in Other Vendor System with Status of Final Darius Estrada MD electronically signed on 09/25/2022 4:53:26 PM with status of Final
== END ==
LOC: HO.CARD 15:02
PROVIDERS: PCP Internal Medicine; Visit Provider Internal Medicine Cardiovascular Disease
DX: R07.89 Other chest pain (principal)
CPT/HCPCS: 93306

== ENCOUNTER → 2022-09-26 10:04 | Outpatient (REF) | payer MEDICAID, SELFPAY ==
--- NOTE | ~2022-09-26 | NM_ITS ---
Myocardial perfusion study Indication: Atypical chest pain to evaluate for myocardial ischemia Technique: The patient was brought in for a Lexiscan perfusion study on 09/26/2022. Patient performed low-level exercise and was injected 0.4 mg of Lexiscan intravenously. Within a minute of injection, 30 mCi of sestamibi was given intravenously. Images were obtained using the SPECT gamma camera interlaced with the gating device. Images were obtained in supine position. Resting perfusion study was performed on 09/27/2022. Patient was administered 30 mCi of sestamibi intravenously at rest. Images were then obtained in supine position. Images obtained with and without CT attenuation. Total DLP 112 mGy-cm Images were processed with the software and compared side to side in short axis, horizontal long axis and vertical long axis views. Findings: Both stress and rest perfusion study was suboptimal due to intense subdiaphragmatic uptake interfering with basal inferior wall uptake. The stress perfusion study showed non attenuated images show normal uptake of all segments of myocardium. Attenuated corrected images are suboptimal for imaging interpretation. The gated study shows normal LV systolic function with calculated LVEF of 55%. LV cavity is normal in size. The gated study shows normal systolic wall thickening and contraction of segments. Resting study shows non attenuated images show no change in perfusion pattern. Gating at rest reveals normal systolic wall motion with ejection fraction at 52%. The findings are consistent with normal myocardial perfusion. NM/NM caio perf SPECT rest & str Impression: 1. Myocardial perfusion imaging study shows normal myocardial perfusion 2. Gated LVEF is 55% 3. Transient ischemic dilatation not present EKG is nondiagnostic for ischemia
--- NOTE | 2022-09-26 10:09 | CA_ITS ---
Acquisition Time: 2022-09-26 10:25:51 Total Exercise Time: 00:02:00 Test Indications: CHEST PAIN, SOB Medications: Protocol: LEXISCAN Max HR: 101 BPM 61% of Pred: 163 BPM Max BP: 118/080 mmHG Max Work Load: 1.0 METS Pharmacological stress test with Lexiscan injection, with sitting and kicking his legs, without anginal symptoms, without arrythmia, with normotensive response to injection, with nondiagnostic EKG for ischemia. Nuclear images pending. Test reviewed with Dr Diego Referred By: Darius Estrada Overread By: RICHARD THOMSON
== END ==
LOC: HO.CARD 10:04
PROVIDERS: Visit Provider Internal Medicine Cardiovascular Disease
DX: R07.89 Other chest pain (principal)
CPT/HCPCS: 78452; 93017; A9500; J2785

== ENCOUNTER → 2022-10-30 08:20 | Outpatient (BNVA) | payer MEDICAID, SELFPAY | PROVIDERS: PCP Internal Medicine Geriatric Medicine; Referring Provider Internal Medicine; Visit Provider Internal Medicine Cardiovascular Disease | DX: R07.89 Other chest pain (principal) | CPT/HCPCS: 99212 ==

== ENCOUNTER → 2023-02-11 13:23 | Outpatient (BNVA) | payer MEDICAID, SELFPAY | PROVIDERS: PCP Internal Medicine Geriatric Medicine; Visit Provider Internal Medicine Pulmonary Disease | DX: J44.9 Chronic obstructive pulmonary disease, unspecified (principal); R91.8 Other nonspecific abnormal finding of lung field; Z79.899 Other long term (current) drug therapy | CPT/HCPCS: 99202 ==

== ENCOUNTER 2023-03-13 14:23 | Outpatient (AMB) | payer MEDICAID, SELFPAY ==
--- NOTE | 2023-03-13 14:43 | A.OFFVIS_ITS ---
Intake Vital Signs 03/13/23 14:44 Height 5 ft 6 in Weight 229 lb 4.492 oz BMI 37.0 BP 124/80 Pulse 78 Pulse Oximetry (%) 96 Intake Visit Reasons: COPD Intake Note: CS has been trying to reach pt to get testing done and he never called back to schedule testing. he is ding good on incruse and advair inhaler. Allergies No Known Allergies Allergy (Verified 03/13/23 14:44) HPI COPD HPI Details 57-year-old gentleman, recent 60 pack-year smoker, with underlying diastolic dysfunction, now followed for COPD and pulmonary nodules. At the last office visit patient was started on Incruse in addition to his Advair with significantly improved symptom control. He has not completed his pulmonary function test yet. He denies recent exacerbations. [facility] Medical History HTN (hypertension) Hyperlipidemia Tobacco abuse disorder Family History Mother Diabetes Hypertension Heart attack Father Hypertension Heart attack Social History Alcohol intake: never Tobacco use type: Cigarette Cigarette Packs Per Day: 1 Cigarettes Per Day: 20 Years Smoked: 20 + years Review of Systems Const Denies daytime sleepiness, Denies excessive sweating, Denies fatigue, Denies fever(s), Denies lethargy, Denies malaise, Denies night sweats, Denies snoring and Denies weight loss Eyes Denies blurry vision and Denies itchy eyes ENT Denies nasal congestion, Denies post nasal drip, Denies sinus pain, Denies sinus pressure and Denies other ( Thrush) Card Denies chest pain, Denies pedal edema, Denies dyspnea, Denies orthopnea and Denies paroxysmal nocturnal dyspnea Resp Denies cough, Denies hemoptysis, Denies excessive phlegm production, Denies dyspnea, Denies snoring and Denies wheezing GI Denies abdominal pain and Denies heartburn Musc Denies myalgias, Denies arthralgias and Denies joint swelling Skin/Breast Denies rash Neuro Denies memory loss and Denies seizure-like activity Psych Denies abnormal sleep pattern, Denies anxiety and Denies memory loss Endo Denies excessive sweating, Denies fatigue and Denies heat intolerance Jorden/Lymph Denies easy bruising Aller/Immun Denies itchy eyes, Denies seasonal rhinorrhea and Denies wheezing Physical Exam Vital Signs: Last Vital Signs Pulse 78 03/13/23 14:44 BP 124/80 03/13/23 14:44 Pulse Ox 96 03/13/23 14:44 BMI result Body Mass Index 37.0 Const General: no acute distress and alert Nutritional Appearance: obese Orientation/consciousness: Other orientation findings ( oriented) HEENT Head: Yes atraumatic Eyes General: appearance normal, both eyes and all related structures Sclerae: sclerae normal EOM: EOMs intact bilaterally Neck Neck: Yes supple Lymphatic: no lymphadenopathy noted Resp Effort & Inspection: normal respiratory effort and no use of accessory muscles Auscultation: clear to auscultation bilaterally Cardio Rate: regular rate Rhythm: regular rhythm Heart sounds: no gallops, no murmurs and no rubs Skin General skin exam: other ( warm) Extrem General: No clubbing, No cyanosis and No edema Assessment & Plan Assessment & Plan (1) COPD (chronic obstructive pulmonary disease): Code(s): J44.9 - Chronic obstructive pulmonary disease, unspecified Plan: improved control Incruse, Advair, and albuterol MDI. Continue current regimen. PFT is pending. (2) Pulmonary nodules: Code(s): R91.8 - Other nonspecific abnormal finding of lung field Plan: Follow-up CT chest ordered for July of 2023. Coding Level of Care Code Est Pt Level 4 (63402) Diagnoses COPD (chronic obstructive pulmonary disease) J44.9 Pulmonary nodules R91.8
[2023-03-13 14:44] VITALS: BP 124/80; PULSE 78; O2SAT 96; BMI 37.0
== END 2023-03-13 15:01 | disposition home or self-care (01) ==
LOC: HO.HPS 14:23
PROVIDERS: PCP Internal Medicine Geriatric Medicine; Visit Provider Internal Medicine Pulmonary Disease
DX: J44.9 Chronic obstructive pulmonary disease, unspecified (principal); R91.8 Other nonspecific abnormal finding of lung field
CPT/HCPCS: 99214

== ENCOUNTER → 2023-03-13 14:23 | Outpatient (BNVA) | payer MEDICAID, SELFPAY | PROVIDERS: PCP Internal Medicine Geriatric Medicine; Visit Provider Internal Medicine Pulmonary Disease | DX: J44.9 Chronic obstructive pulmonary disease, unspecified (principal); R91.8 Other nonspecific abnormal finding of lung field; Z79.899 Other long term (current) drug therapy | CPT/HCPCS: 99212 ==

== ENCOUNTER 2023-03-17 09:19 | Outpatient (REF) | payer MEDICAID, SELFPAY ==
--- NOTE | ~2023-03-17 | XR_ITS ---
EXAMINATION: XR CHEST CLINICAL INFORMATION: Mass in the right chest wall COMPARISON: Chest radiograph from 07/29/[address] angiogram from 07/30/2022 TECHNIQUE: 2 views of the chest were obtained. FINDINGS: There is pleural thickening on the right and there is questionable soft tissue mass along the right chest wall, correlate with CT scan. Cardiomediastinal silhouette is normal and there lungs are clear. XR/XR chest 2V IMPRESSION: Pleural thickening on the right and questionable soft tissue mass along the right chest wall, correlate with CT scan.
== END 2023-03-17 09:20 | disposition home or self-care (01) ==
LOC: HO.HHCX 09:19
PROVIDERS: Visit Provider Internal Medicine Geriatric Medicine
DX: R22.2 Localized swelling, mass and lump, trunk (principal)
CPT/HCPCS: 71046

== ENCOUNTER 2023-03-25 13:31 | Outpatient (REF) | payer MEDICAID, SELFPAY ==
--- NOTE | 2023-03-25 14:56 | PFT_ITS ---
INDICATION: COPD. SPIROMETRY: FEV1 to FVC prebronchodilator 71%, postbronchodilator 75%. FEV1 of 2.42 L which is 70% predicted and FVC of 3.23 L which is 72% predicted. There was a significant response to bronchodilators noted. Also to note, the patient has significant small airway disease with an [id number] down to 39% predicted. The maximum voluntary ventilation 45% predicted. LUNG VOLUMES: Total lung capacity 69% predicted with an expiratory residual volume 16% predicted. DIFFUSION CAPACITY: DLCO of 57% predicted. COMPARISONS: None. INTERPRETATION: There appears to be no definitive obstructive ventilatory defect, although the patient does appear to have an obstructive physiology with significant small airway disease. Therefore, need to consider underlying asthma. Patient does have a significant response to bronchodilators. There is a moderate decrease in maximum voluntary ventilation secondary likely to deconditioning, although cannot rule out neuromuscular conditions. Lung volumes also demonstrate patient does have a restrictive ventilatory defect consistent with mild restrictive lung disease. Need to consider underlying parenchymal lung conditions, although his body habitus also likely affecting his lung expansion. His expiratory reserve volume significantly decreased. The patient also has a moderate diffusion impairment. The diffusion impairment thus indeed improved to 85% when correcting for the hypoexpansion of the lungs due to the elevated BMI. Clinical correlation warranted. MD LAUREN Lee/JULIA / [id number]
== END 2023-03-25 13:32 | disposition home or self-care (01) ==
LOC: HO.RESP 13:31
PROVIDERS: PCP Internal Medicine Geriatric Medicine; Visit Provider Internal Medicine Pulmonary Disease
DX: J44.9 Chronic obstructive pulmonary disease, unspecified (principal)
CPT/HCPCS: 94010; 94727; 94729

== ENCOUNTER → 2023-03-25 14:56 | Outpatient (BNV) | payer MEDICAID, SELFPAY | PROVIDERS: PCP Internal Medicine Geriatric Medicine; Visit Provider Hospitalist | DX: J44.9 Chronic obstructive pulmonary disease, unspecified (principal); R91.1 Solitary pulmonary nodule | CPT/HCPCS: 94060; 94727; 94729 ==

== ENCOUNTER 2023-04-30 08:13 | Outpatient (REF) | payer MEDICAID, SELFPAY ==
--- NOTE | ~2023-04-30 | CT_ITS ---
EXAMINATION: CT CHEST WITHOUT AND WITH CONTRAST CLINICAL INFORMATION: Thickening of pleura. COMPARISON: None available. TECHNIQUE: Multidetector volumetric CT imaging of the chest was obtained before and after the administration of 65 mL of Omnipaque 350 intravenous contrast without immediate adverse reactions. Axial MIP volume rendering provided. Sagittal and coronal reformatted images were obtained. This CT examination was performed using dose optimization techniques as appropriate, variously including the following: *Automated exposure control *Adjustment of mA and/or kV according to patient size (this includes techniques or standardized protocols for targeted exams where dose is matched to indication/reason for exam; i.e. extremities or head) *Use of iterative reconstruction technique DLP: 423 mGy-cm FINDINGS: FINE ARTS PACKER: Well-expanded lungs. LUNGS: There is centrilobular emphysematous changes of the lungs. There is 4 mm calcification right upper lobe axial image 194/5. There is a 7 mm noncalcified nodule right lower lobe axial image 300/6. No additional appearing nodules seen. There is focal scarring or atelectasis right middle lobe medially. No acute pneumonic consolidation, mass or groundglass density. No abnormal enhancing vasculature or lung parenchyma seen. MEDIASTINUM: Heart size and the great vessels are normal caliber. Small shotty lymph nodes are seen in the mediastinum with central lucency likely benign. There is soft tissue density in anterior mediastinum likely residual thymus thyroid lobes are symmetrical and normal. CORONARY ARTERY CALCIFICATION: There is mild coronary artery calcification present. PLEURA: There is no pleural thickening, calcification or abnormal enhancement. AXILLA: Small shotty lymph nodes in the axilla. The chest wall is unremarkable. UPPER ABDOMEN: There is a 2.1 cm hypodensity left hepatic lobe. No additional lesions seen. No intrahepatic ductal dilatation. No radiopaque gallstones or wall thickening. OSSEOUS STRUCTURES: No aggressive lytic or sclerotic process seen. There are several nonhealed right lateral fifth, sixth and seventh rib fractures. CT/CT chest wo/w IV con IMPRESSION: 4 mm calcified nodule right upper lobe and 7 mm noncalcified nonenhancing nodule right lower lobe. Mild central lobular emphysema without any acute process. Benign lymph nodes in the mediastinum. Fleischner guidelines were followed.
[2023-04-30] MEDS: iohexoL 350 MG/ML 100 ML INFUS..BTL IV (09:56)
[2023-05-01 08:55] LABS: GFR POC 60
== END 2023-04-30 08:14 | disposition home or self-care (01) ==
LOC: HO.CT 08:13
PROVIDERS: PCP Internal Medicine Geriatric Medicine; Visit Provider Internal Medicine Geriatric Medicine
DX: J92.9 Pleural plaque without asbestos (principal); R22.2 Localized swelling, mass and lump, trunk
CPT/HCPCS: 71270; 82565; Q9967

== ENCOUNTER 2023-05-26 11:18 | Outpatient (AMB) | payer MEDICAID, SELFPAY ==
[2023-05-26 11:28] VITALS: BMI 37.0
--- NOTE | 2023-05-26 11:28 | A.OFFVIS_ITS ---
Intake Vital Signs 05/26/23 11:28 Height 5 ft 6 in Weight 229 lb BMI 37.0 Intake Visit Reasons: EP-OA of right hip Intake Note: Cameron is a 57 year old male who presents today for a new problem visit with complaints of right hip pain. Allergies No Known Allergies Allergy (Verified 05/26/23 11:30) HPI EP-OA of right hip HPI Details Cameron is a 57 year old man who returns to discuss his right hip OA. Citizen Of [place] patient He complains of pain with daily & weight-bearing activities, localized to his groin. He walks with severe antalgia and pain. At his last appointment a DOUG was discussed and he was to speak with Yolanda concerning this. He has poor dentition and required dental clearance prior to proceeding with surgery. [facility] Medical History Tobacco abuse disorder Hyperlipidemia HTN (hypertension) Family History Mother Diabetes Hypertension Heart attack Father Hypertension Heart attack Social History Alcohol intake: never Tobacco use type: Cigarette Cigarette Packs Per Day: 1 Cigarettes Per Day: 20 Years Smoked: 20 + years Review of Systems Const All systems reviewed & are unremarkable except as noted in HPI and below Physical Exam Vital Signs: BMI result Body Mass Index 37.0 Const General: no acute distress, alert and awake Orientation/consciousness: patient oriented x3 HEENT Head: Yes normocephalic and Yes atraumatic Eyes EOM: EOMs intact bilaterally Resp Effort & Inspection: normal respiratory effort and able to speak in complete sentences Cardio Jugular venous distension: no JVD Skin General skin exam: turgor normal Rashes: no rashes Neuro General: patient oriented x3 Extrem Other: Right Hip: Antalgic gait Minimal motion No rotation possible of hip while flexed can flex to ~80 degrees several teeth have been removed and remaining teeth appear healthy Psych Appearance: grossly normal Affect: normal affect Attitude: cooperative Results Reviewed Results Reviewed: I personally reviewed relevant radiographs. Severe bilateral hip OA Assessment & Plan Assessment & Plan (1) Osteoarthritis of right hip: Code(s): M16.11 - Unilateral primary osteoarthritis, right hip Plan: This is a 57 year old man with severe right hip OA. He is unable to engage in daily activity without pain and ambulates with severe antalgia. I discussed treatment options. I recommend a right DOUG. He has multiple risk factors, including smoking and poor medical literacy. He will most likely require dental work prior to surgery. Medically, on paper, he is a reasonable surgical candidate and at his last appointment he was to speak with Yolanda concerning surgery. I discussed the risks, benefits, and alternatives including, but not limited to, the risk of pain, infection, stiffness, need for further surgery as well as potential medical complications such as blood clots, pulmonary embolism and cardiac complications. I discussed the recovery timeline and process as well as the importance of PT. Cameron is a good candidate for this surgery, and he wi shes to proceed with this decision. He will speak with Yolanda to schedule this procedure. Plan Scribed for Tomasz Aguilar MD by Damian Khanna, neuropsychology medical consultant, on 05/26/23 at 11:35 AM, EST. Medications: New ibuprofen 800 mg PO TID PRN 90 tabs 0RF pain Coding Level of Care Code Est Pt Level 4 (80203) Diagnoses Osteoarthritis of right hip M16.11
== END 2023-05-26 11:56 | disposition home or self-care (01) ==
PROVIDERS: PCP Internal Medicine Geriatric Medicine; Visit Provider Orthopaedic Surgery
DX: M16.11 Unilateral primary osteoarthritis, right hip (principal)
CPT/HCPCS: 99214

== ENCOUNTER → 2023-05-26 11:18 | Outpatient (BNVA) | payer MEDICAID, SELFPAY | PROVIDERS: PCP Internal Medicine Geriatric Medicine; Visit Provider Orthopaedic Surgery | DX: M16.11 Unilateral primary osteoarthritis, right hip (principal) | CPT/HCPCS: 99212 ==

== ENCOUNTER 2023-06-12 13:38 | Outpatient (AMB) | payer MEDICAID, SELFPAY ==
[2023-06-12 13:45] VITALS: BP 140/88; PULSE 94; O2SAT 97; BMI 38.4
--- NOTE | 2023-06-12 13:45 | A.OFFVIS_ITS ---
Intake Vital Signs 06/12/23 13:45 Height 5 ft 6 in Weight 238 lb 1.588 oz BMI 38.4 BP 140/88 H Blood Pressure Location Lt brachial Position Sitting Pulse 94 Pulse Source Doppler Pulse Oximetry (%) 97 Oxygen Delivery Method Room Air Intake Visit Reasons: COPD Heating Element Winder Required: Yes Heating Element Winder Name: Radha Adan Chambers Allergies No Known Allergies Allergy (Verified 06/12/23 13:52) HPI COPD HPI Details 57-year-old gentleman, recent 60 pack-ye ar smoker, with underlying diastolic dysfunction, now followed for COPD and pulmonary nodules. After the last office visit patient has completed his pulmonary function testing that shows underlying moderate COPD. He has been using Advair, Incruse, and albuterol MDI with good control of his symptoms. He denies any recent exacerbations. [facility] Medical History Tobacco abuse disorder Hyperlipidemia HTN (hypertension) Family History Mother Diabetes Hypertension Heart attack Father Hypertension Heart attack Social History (Updated 06/12/23 @ 13:53 by Radha Mcdowell [facility]) Alcohol intake: never Patient Tobacco Use Status: Current someday Tobacco user Tobacco use type: Cigarette Cigarettes Per Day: 1 Years Smoked: 20 + years Review of Systems Const Denies daytime sleepiness, Denies excessive sweating, Denies fatigue, Denies fever(s), Denies lethargy, Denies malaise, Denies night sweats, Denies snoring and Denies weight loss Eyes Denies blurry vision and Denies itchy eyes ENT Denies nasal congestion, Denies post nasal drip, Denies sinus pain, Denies sinus pressure and Denies other ( Thrush) Card Denies chest pain, Denies pedal edema, Denies dyspnea, Denies orthopnea and Denies paroxysmal nocturnal dyspnea Resp Denies cough, Denies hemoptysis, Denies excessive phlegm production, Denies dyspnea, Denies snoring and Denies wheezing GI Denies abdominal pain and Denies heartburn Musc Denies myalgias, Denies arthralgias and Denies joint swelling Skin/Breast Denies rash Neuro Denies memory loss and Denies seizure-like activity Psych Denies abnormal sleep pattern, Denies anxiety and Denies memory loss Endo Denies excessive sweating, Denies fatigue and Denies heat intolerance Jorden/Lymph Denies easy bruising Aller/Immun Denies itchy eyes, Denies seasonal rhinorrhea and Denies wheezing Physical Exam Vital Signs: Last Vital Signs Pulse 94 06/12/23 13:45 BP 140/88 H 06/12/23 13:45 Pulse Ox 97 06/12/23 13:45 Oxygen Delivery Method Room Air 06/12/23 13:45 BMI result Body Mass Index 38.4 Const General: no acute distress and alert Nutritional Appearance: not obese Orientation/consciousness: Other orientation findings ( oriented) HEENT Head: Yes atraumatic Eyes General: appearance normal, both eyes and all related structures Sclerae: sclerae normal EOM: EOMs intact bilaterally Neck Neck: Yes supple Lymphatic: no lymphadenopathy noted Resp Effort & Inspection: normal respiratory effort and no use of accessory muscles Auscultation: clear to auscultation bilaterally Cardio Rate: regular rate Rhythm: regular rhythm Heart sounds: no gallops, no murmurs and no rubs Skin General skin exam: other ( warm) Extrem General: No clubbing, No cyanosis and No edema Assessment & Plan Assessment & Plan (1) COPD (chronic obstructive pulmonary disease): Code(s): J44.9 - Chronic obstructive pulmonary disease, unspecified Plan: Results of pulmonary function test reviewed, underlying moderate COPD. Now well controlled on current regimen of Incruse, Advair, and albuterol MDI. Continue current regimen. (2) Pulmonary nodules: Code(s): R91.8 - Other nonspecific abnormal finding of lung field Plan: Follow-up CT chest is pending for July of 2023. (3) Encounter for preoperative pulmonary examination: Code(s): Z01.811 - Encounter for preprocedural respiratory examination Plan: At this time patient is at low risk for pulmonary perioperative complications for the proposed hip replacement under general anesthesia. Coding Level of Care Code Est Pt Level 4 (64762) Diagnoses COPD (chronic obstructive pulmonary disease) J44.9 Pulmonary nodules R91.8 Encounter for preoperative pulmonary examination Z01.811
== END 2023-06-12 14:14 | disposition home or self-care (01) ==
PROVIDERS: PCP Internal Medicine Geriatric Medicine; Visit Provider Internal Medicine Pulmonary Disease
DX: J44.9 Chronic obstructive pulmonary disease, unspecified (principal); R91.8 Other nonspecific abnormal finding of lung field; Z01.811 Encounter for preprocedural respiratory examination
CPT/HCPCS: 99214

== ENCOUNTER → 2023-06-12 13:38 | Outpatient (BNVA) | payer MEDICAID, SELFPAY | PROVIDERS: PCP Internal Medicine Geriatric Medicine; Visit Provider Internal Medicine Pulmonary Disease | DX: Z01.811 Encounter for preprocedural respiratory examination (principal); J44.9 Chronic obstructive pulmonary disease, unspecified; R91.8 Other nonspecific abnormal finding of lung field | CPT/HCPCS: 99212 ==

== ENCOUNTER 2023-07-29 11:19 | Outpatient (REF) | payer MEDICAID, SELFPAY ==
[2023-07-29 13:19] LABS: MANUAL DIFF FLAG NO
[2023-07-29 13:31] LABS: Basophils Absolute Auto 0.1 X10*3/uL (0.0-0.2); Basophils Percent Auto 0.9 % (0-2); Eosinophils Absolute Auto 0.3 X10*3/uL (0.0-0.4); Eosinophils Percent Auto 3.1 % (0-4); Hematocrit 48.9 % (42.0-52.0); Hemoglobin 15.9 g/dl (14.0-18.0); Lymphocytes Percent Auto 29.2 % (20-40); Mean Corpuscular HGB Conc 32.5 g/dl (31.0-36.0); Mean Corpuscular Volume 92.3 fL (80.0-98.0); Mean Platelet Volume 9.5 fL (9.4-12.4); Monocytes Absolute Auto 0.8 X10*3/uL (0.1-1.2); Monocytes Percent Auto 7.5 % (2-11); Neutrophils Absolute Auto 6.1 x10*3/uL (2.0-8.3); Neutrophils Percent Auto 58.3 % (45-73); Platelet Count 309 X10*3/uL (160-400); Red Cell Distribution Width 14.3 % (11.0-16.0); White Blood Count 10.4 X10*3/uL (4.8-10.8)
[2023-07-29 13:33] LABS: INTERNATIONAL NORM RATIO 0.8 (0.9-1.1); Prothrombin Time 10.3 SEC (11.1-13.3)
[2023-07-29 14:19] LABS: Anion Gap 14 (12-20); Blood Urea Nitrogen 13 mg/dL (9-16); Calcium 9.4 mg/dL (8.4-10.2); Carbon Dioxide 25 mmol/L (22-29); Chloride 105 mmol/L (96-108); Estimated Glomerular Filt Rate > 60; Glucose Random 92 mg/dL (60-115); Potassium 4.4 mmol/L (3.3-5.1); Sodium 140 mmol/L (135-145)
== END 2023-07-29 11:20 | disposition home or self-care (01) ==
LOC: HO.HHCL 11:19
PROVIDERS: Visit Provider Internal Medicine Geriatric Medicine
DX: Z01.818 Encounter for other preprocedural examination (principal)
CPT/HCPCS: 36415; 80048; 85025; 85610

== ENCOUNTER 2023-08-13 09:20 | Outpatient (REF) | payer MEDICAID, SELFPAY | END 2023-08-13 09:21 | disposition home or self-care (01) | LOC: HO.CT 09:20 | PROVIDERS: PCP Internal Medicine Geriatric Medicine; Visit Provider Internal Medicine Pulmonary Disease | DX: R91.8 Other nonspecific abnormal finding of lung field (principal) | CPT/HCPCS: 71250 ==

== ENCOUNTER → 2023-08-14 13:13 | Outpatient (BNV) | payer MEDICAID, SELFPAY | PROVIDERS: Admitting Provider Orthopaedic Surgery; PCP Internal Medicine Geriatric Medicine; Visit Provider Internal Medicine Cardiovascular Disease | DX: R94.31 Abnormal electrocardiogram [ECG] [EKG] (principal) | CPT/HCPCS: 93010 ==

== ENCOUNTER 2023-08-21 12:24 | Outpatient (AMB) | payer MEDICAID, SELFPAY ==
--- NOTE | 2023-08-21 12:35 | A.OFFVIS_ITS ---
Intake Vital Signs 08/21/23 12:38 Height 5 ft 6 in Weight 238 lb BMI 38.4 Intake Visit Reasons: Preop-RT DOUG 08/26/23 NE Intake Note: Cameron 58 yr old male presents today with his brother for his Pre op visit for his right DOUG. Reports no changes in medical history. Pain management agreement reviewed and given in [place]. Allergies No Known Allergies Allergy (Verified 08/21/23 12:40) Medication List - Last Reconciled 08/21/23 by Yair Hood PA-C albuterol sulfate 90 mcg/actuation 1 inh inhalation QID PRN atorvastatin 20 mg PO DAILY fluticasone propion-salmeterol 230-21 mcg/actuation (Advair HFA) 2 puffs inhalation BID lisinopril 10 mg PO QAM nabumetone 500 mg PO BID nicotine (polacrilex) 4 mg PO Q4H PRN umeclidinium 62.5 mcg/actuation (Incruse Ellipta) 1 inh inhalation QAM HPI HPI Comments History of Present Illness Details Mr Calderon presents to the office today for preop visit. He is scheduled for right total hip arthroplasty with Dr. Aguilar. He continues to have ongoing pain and difficulty with ambulation in the right hip, which is affecting his quality of life; therefore, he has elected to move forward with surgery. [facility] Medical History (Updated 08/21/23 @ 12:45 by Yair Hood PA-C) Atypical chest pain COPD (chronic obstructive pulmonary disease) Tobacco abuse disorder Hyperlipidemia HTN (hypertension) Surgical History (Updated 08/13/23 @ 11:53 by Mari Albrecht RN) No pertinent past surgical history Family History Mother Diabetes Hypertension Heart attack Father Hypertension Heart attack Social History Are you a primary customer care associate to a significant other at home: No Alcohol intake: never Patient Tobacco Use Status: Current someday Tobacco user Tobacco use type: Cigarette Cigarettes Per Day: 2 Years Smoked: 25 Review of Systems Const All systems reviewed & are unremarkable except as noted in HPI and below Physical Exam Vital Signs: BMI result Body Mass Index 38.4 Const General: cooperative and no acute distress Orientation/consciousness: patient oriented x3 HEENT Head: Yes normal to inspection, Yes normocephalic and Yes atraumatic Eyes General: appearance normal, both eyes and all related structures Neck Neck: Yes normal visual inspection and Yes no lymphadenopathy Resp Effort & Inspection: normal respiratory effort and able to speak in complete sentences Cardio Rate: regular rate Peripheral pulses: Peripheral pulses 2+ throughout GI Inspection: Yes normal to inspection Palpation (GI): Soft to palpation Skin General skin exam: no rashes or lesions noted Neuro General: patient oriented x3 Extrem Other: Right hip: Skin is intact. He has pain with ROM and hip flexion. NVI. Psych Appearance: grossly normal Mental Status: mental status grossly normal Assessment & Plan Assessment & Plan (1) Osteoarthritis of right hip: Code(s): M16.11 - Unilateral primary osteoarthritis, right hip Qualifiers: Osteoarthritis type: primary Qualified Code(s): M16.11 - Unilateral primary osteoarthritis, right hip Plan: I discussed in detail the procedure and what to expect pre and post operatively. We discussed the risks, benefits and alternatives to the surgery as well as the rehabilitation course. The risks; which include, but are not limited to infection, bleeding, nerve injury, ongoing pain, swelling, and stiffness, perioperative risk of injury to bones and soft tissues, and blood clots. I?ve answered all questions and with their understanding they have consented to move forward with Right total hip arthroplasty with Dr. Aguilar Medications: New 2 walker Folding Front wheeled walker 1 ea 0 M16.11 - Unilateral primary osteoarthritis, right hip Patient Instructions: Scribed for Yair Hood PA-C, by Ilia Garza electromedical equipment technician, on 08/21/2023 at 12:45 PM EST. IYair PA-C, have personally reviewed and agree with the information entered by the scribe. Coding Level of Care Code Est Pt Level 3 (57111) Diagnoses Primary osteoarthritis of right hip M16.11 Osteoarthritis type: primary
[2023-08-21 12:38] VITALS: BMI 38.4
== END 2023-08-21 13:16 | disposition home or self-care (01) ==
PROVIDERS: PCP Internal Medicine Geriatric Medicine; Visit Provider Physician Assistant
DX: M16.11 Unilateral primary osteoarthritis, right hip (principal)
CPT/HCPCS: 99024

== ENCOUNTER → 2023-08-21 12:24 | Outpatient (BNVA) | payer MEDICAID, SELFPAY | PROVIDERS: PCP Internal Medicine Geriatric Medicine; Visit Provider Physician Assistant | DX: Z01.818 Encounter for other preprocedural examination (principal); M16.11 Unilateral primary osteoarthritis, right hip | CPT/HCPCS: 99212 ==

== ENCOUNTER 2023-08-26 09:53 | Inpatient (IN) | payer MEDICAID, SELFPAY ==
[2023-08-14 12:34] VITALS: BP 131/83; PULSE 86; RESP 20; O2SAT 99; BMI 38.2
--- NOTE | 2023-08-14 12:48 | P.CONAN_ITS ---
HPI - Anesthesia Eval Consult details Narrative: 58yo M for Right Hip Total Replacement Medically cleared Pulmo cleared No recent illness. Chronic occassional dry cough No chest pain. Breathing at baseline with COPD. Denies THOMPSON. Cardiac w/u early 2022 for atypical CP all wnl, prn f/u only PMFSH Active Problems Active Problems: All Active Problems (Updated 08/13/23 @ 10:53 by Mari Albrecht RN) Encounter for preoperative pulmonary examination (Acute) Pulmonary nodules (Acute) COPD (chronic obstructive pulmonary disease) (Acute) Atypical chest pain (Acute) Impingement syndrome, shoulder, left (Acute) Osteoarthritis of right hip (Acute) Hyperlipidemia (Acute) HTN (hypertension) (Acute) Past Medical History Medical History Atypical chest pain COPD (chronic obstructive pulmonary disease) Tobacco abuse disorder Hyperlipidemia HTN (hypertension) Family History Family History Mother Diabetes Hypertension Heart attack Father Hypertension Heart attack Family history of problems with anesthesia: No Surgical History Surgical History No pertinent past surgical history History of Problems with Anesthesia: No (Never rec'd) Social History Social History Are you a primary healthcare network consultant to a significant other at home: No Alcohol intake: never Patient Tobacco Use Status: Current everyday Tobacco user Tobacco use type: Cigarette Cigarettes Per Day: 2 Years Smoked: 25 Smoked in Last 30 Days: Yes Use of substances other than those prescribed or required for medical reasons: No Have you been hit, kicked, punched, or otherwise hurt by someone within the past year? If so, by whom?: No Are you DNR?: No Advance Directives: No Advance Directives Information Provided: No (declined) Advance Directives on File: No Recently lost weight without trying: No Eating poorly because of decreased appetite: No Nutrition Risks: No Nutritional Risk Poor oral hygiene: Yes (upper full and lower partial denture) Meds Allergies Allergy/AdvReac Type Severity Reaction Status Date / Time No Known Allergies Allergy Verified 08/21/23 12:40 Home Medications Medication Instructions Recorded Confirmed Last Taken Type atorvastatin 20 mg tablet 20 mg PO DAILY 09/18/22 08/21/23 08/26/23 History lisinopril 10 mg tablet 10 mg PO QAM 09/18/22 08/21/23 08/26/23 History fluticasone propionate 230 2 puff inhalation BID 06/12/23 08/21/23 08/26/23 History mcg-salmeterol 21 mcg/actuation HFA inhaler (Advair HFA) nicotine (polacrilex) 4 mg buccal 4 mg PO Q4H PRN Nicotine Cravings 06/12/23 08/21/23 08/20/23 History lozenge umeclidinium 62.5 mcg/actuation 1 inh inhalation QAM 06/12/23 08/21/23 08/26/23 History blister powder for inhalation (Incruse Ellipta) nabumetone 500 mg tablet 500 mg PO BID 08/14/23 08/21/23 08/20/23 History Exam Height,Weight and Vital Signs: Height 5 ft 6 in Weight 107.501 kg Last Vital Signs Pulse 86 08/14/23 12:34 Resp 20 08/14/23 12:34 BP 131/83 08/14/23 12:34 Pulse Ox 99 08/14/23 12:34 O2 Del Method Room Air 08/14/23 12:34 Pertinent Lab Results Pertinent Lab Results: Laboratory Tests 07/29/23 11:20 WBC 10.4 Hgb 15.9 Hct 48.9 Plt Count 309 Sodium 140 Potassium 4.4 Chloride 105 Carbon Dioxide 25 BUN 13 Creatinine 1.07 Narrative Narrative: EKG 07/2023 Vent. Rate : 086 BPM Atrial Rate : 086 BPM P-R Int : 158 ms QRS Dur : 098 ms QT Int : 376 ms P-R-T Axes : 066 -33 032 degrees QTc Int : 449 ms Normal sinus rhythm Left axis deviation Nonspecific T wave abnormality Abnormal ECG When compared with ECG of 29-JUL-2022 15:52, No significant change was found ECHO 09/2022 Conclusions: - 1. Normal LV systolic function with grade 1 diastolic dysfunction 2. Normal cardiac valvular Doppler 3. No gross pericardial effusion NM caio perf SPECT rest & str 09/2022 Impression: 1. Myocardial perfusion imaging study shows normal myocardial perfusion 2. Gated LVEF is 55% 3. Transient ischemic dilatation not present EKG is nondiagnostic for ischemia Airway Mallampati Class: III TM Dist: >3cm (short neck) Denture: Upper Partial: Lower Heart: RRR Lungs: Diminished sounds Assessment and Plan Assessment Anesthesia Assessment: Anesthesia Plan Discussed, Smoking Cess. Discussed and PAT Visit Final Anesthetic Review Family History of Problems with Anesthesia: No History of Problems with Anesthesia: No (Never rec'd)
--- NOTE | 2023-08-14 13:13 | ECG_ITS ---
Test Reason : PREOP Blood Pressure : / mmHG Vent. Rate : 086 BPM Atrial Rate : 086 BPM P-R Int : 158 ms QRS Dur : 098 ms QT Int : 376 ms P-R-T Axes : 066 -33 032 degrees QTc Int : 449 ms Normal sinus rhythm Left axis deviation Nonspecific T wave abnormality Abnormal ECG When compared with ECG of 29-JUL-2022 15:52, No significant change was found Referred By: Yair Hood Electronically Signed By:HARIS GOODSON MD
[2023-08-14 14:29] LABS: MRSA Nasal PCR NEGATIVE (Negative); SA Nasal PCR NEGATIVE (Negative)
[2023-08-26] VITALS (16 sets, daily range): BP systolic 119–173; BP diastolic 68–102; PULSE 69–91; RESP 12–20; TEMP 36–36.4; O2SAT 89–97; BMI 39.3
--- NOTE | 2023-08-26 08:52 | P.CONAN_ITS ---
[facility] Active Problems Active Problems: All Active Problems (Updated 08/21/23 @ 12:45 by Yair Hood PA-C) Encounter for preoperative pulmonary examination (Acute) Pulmonary nodules (Acute) COPD (chronic obstructive pulmonary disease) (Acute) Atypical chest pain (Acute) Impingement syndrome, shoulder, left (Acute) Osteoarthritis of right hip (Acute) Hyperlipidemia (Acute) HTN (hypertension) (Acute) Past Medical History Medical History Atypical chest pain COPD (chronic obstructive pulmonary disease) Tobacco abuse disorder Hyperlipidemia HTN (hypertension) Functional capacity: independent ambulation Family History Family History Mother Diabetes Hypertension Heart attack Father Hypertension Heart attack Family history of problems with anesthesia: No Surgical History Surgical History No pertinent past surgical history History of Problems with Anesthesia: No (Never rec'd) Social History Social History Are you a primary personal carer to a significant other at home: No Alcohol intake: never Patient Tobacco Use Status: Current someday Tobacco user Tobacco use type: Cigarette Cigarettes Per Day: 2 Years Smoked: 25 Meds Allergies Allergy/AdvReac Type Severity Reaction Status Date / Time No Known Allergies Allergy Verified 08/21/23 12:40 Home Medications Medication Instructions Recorded Confirmed Last Taken Type atorvastatin 20 mg tablet 20 mg PO DAILY 09/18/22 08/21/23 Unknown History lisinopril 10 mg tablet 10 mg PO QAM 09/18/22 08/21/23 Unknown History fluticasone propionate 230 2 puff inhalation BID 06/12/23 08/21/23 Unknown History mcg-salmeterol 21 mcg/actuation HFA inhaler (Advair HFA) nicotine (polacrilex) 4 mg buccal 4 mg PO Q4H PRN Nicotine Cravings 06/12/23 08/21/23 Unknown History lozenge umeclidinium 62.5 mcg/actuation 1 inh inhalation QAM 06/12/23 08/21/23 Unknown History blister powder for inhalation (Incruse Ellipta) nabumetone 500 mg tablet 500 mg PO BID 08/14/23 08/21/23 Unknown History Exam Height,Weight and Vital Signs: Height 5 ft 6 in Weight 107.501 kg Last Vital Signs Pulse 86 08/14/23 12:34 Resp 20 08/14/23 12:34 BP 131/83 08/14/23 12:34 Pulse Ox 99 08/14/23 12:34 O2 Del Method Room Air 08/14/23 12:34 Pertinent Lab Results Pertinent Lab Results: Laboratory Tests 08/14/23 08/14/23 12:15 13:25 Nasal Screen MRSA (PCR) NEGATIVE Nasal S. aureus Screen NEGATIVE Nasal MRSA/S.aureus Interp SEE NOTE Blood Type B Positive Antibody Screen NEGATIVE Assessment and Plan Final Anesthetic Review Family History of Problems with Anesthesia: No History of Problems with Anesthesia: No (Never rec'd)
[2023-08-26] MEDS: Lactated Ringers 1,000 ML 100 ML IVCONT ×2 (10:05→17:21)
[2023-08-26] MEDS: oxyCODONE HCl ER 10 MG TAB.ER.12H PO ×2 (10:05→19:44)
[2023-08-26] MEDS: Albuterol Sulfate (0.083%) 2.5 MG/3 ML VIAL.NEB INHALE (10:33)
--- NOTE | 2023-08-26 10:34 | PHA.MEDREC ---
Pharmacy Consult ? Medication Reconciliation Pharmacy has completed the medication reconciliation. Reviewed med rec done by nursing
--- NOTE | 2023-08-26 12:17 | MHC.SHP ---
Pre-Procedural Eval Section A Date of Service: 08/26/23 The patient is an INPATIENT: No Changes since office visit: Yes Cold of Flu in the past 2 weeks, Yes New Medical Problems, Yes Changes in Medication and Yes Patient answered all questions The History & Physical has been completed within 30 days and I have reviewed it.: Yes Section B Chief Complaint: RT DOUG Allergies: Allergies Allergy/AdvReac Type Severity Reaction Status Date / Time No Known Allergies Allergy Verified 08/21/23 12:40 Plan I have reviewed the history and physical and performed a pertinent physical examination on my patient. No changes have occurred unless specified. Time Spent With Patient Time: Total time managing care of this patient today ____ minutes.
--- NOTE | 2023-08-26 13:44 | HO.ANESPROP2 ---
[facility] Active Problems Active Problems: All Active Problems (Updated 08/21/23 @ 12:45 by Yair Hood PA-C) Encounter for preoperative pulmonary examination (Acute) Pulmonary nodules (Acute) COPD (chronic obstructive pulmonary disease) (Acute) Atypical chest pain (Acute) Impingement syndrome, shoulder, left (Acute) Osteoarthritis of right hip (Acute) Hyperlipidemia (Acute) HTN (hypertension) (Acute) Past Medical History Medical History Atypical chest pain COPD (chronic obstructive pulmonary disease) Tobacco abuse disorder Hyperlipidemia HTN (hypertension) Functional capacity: independent ambulation Family History Family History Mother Diabetes Hypertension Heart attack Father Hypertension Heart attack Family history of problems with anesthesia: No Surgical History Surgical History No pertinent past surgical history History of Problems with Anesthesia: No (Never rec'd) Social History Social History Are you a primary career development counselor to a significant other at home: No Alcohol intake: never Patient Tobacco Use Status: Current everyday Tobacco user Tobacco use type: Cigarette Cigarettes Per Day: 2 Years Smoked: 25 Smoked in Last 30 Days: Yes Use of substances other than those prescribed or required for medical reasons: No Have you been hit, kicked, punched, or otherwise hurt by someone within the past year? If so, by whom?: No Are you DNR?: No Advance Directives: No Advance Directives Information Provided: No (declined) Advance Directives on File: No Recently lost weight without trying: No Eating poorly because of decreased appetite: No Nutrition Risks: No Nutritional Risk Poor oral hygiene: Yes (upper full and lower partial denture) Meds Allergies Allergy/AdvReac Type Severity Reaction Status Date / Time No Known Allergies Allergy Verified 08/21/23 12:40 Active Medications: Current Medications Lactated Ringer's (Lr) 1,000 mls @ 100 mls/hr IVCONT .Q10H [place] Last Admin: 08/26/23 10:05 Dose: 100 mls/hr Home Medications Medication Instructions Recorded Confirmed Last Taken Type atorvastatin 20 mg tablet 20 mg PO DAILY 09/18/22 08/21/23 08/26/23 History lisinopril 10 mg tablet 10 mg PO QAM 09/18/22 08/21/23 08/26/23 History fluticasone propionate 230 2 puff inhalation BID 06/12/23 08/21/23 08/26/23 History mcg-salmeterol 21 mcg/actuation HFA inhaler (Advair HFA) nicotine (polacrilex) 4 mg buccal 4 mg PO Q4H PRN Nicotine Cravings 06/12/23 08/21/23 08/20/23 History lozenge umeclidinium 62.5 mcg/actuation 1 inh inhalation QAM 06/12/23 08/21/23 08/26/23 History blister powder for inhalation (Incruse Ellipta) nabumetone 500 mg tablet 500 mg PO BID 08/14/23 08/21/23 08/20/23 History Exam Height,Weight and Vital Signs: Height 5 ft 6 in Weight 107.501 kg Last Vital Signs Temp 97.6 F 08/26/23 09:44 Pulse 75 08/26/23 10:34 Resp 17 08/26/23 10:34 BP 128/70 08/26/23 10:08 Pulse Ox 97 08/26/23 09:44 O2 Del Method Room Air 08/26/23 09:44 Pertinent Lab Results Pertinent Lab Results: Laboratory Tests 08/14/23 08/14/23 12:15 13:25 Nasal Screen MRSA (PCR) NEGATIVE Nasal S. aureus Screen NEGATIVE Nasal MRSA/S.aureus Interp SEE NOTE Blood Type B Positive Antibody Screen NEGATIVE Airway Mallampati Class: III TM Dist: >3cm Neck ROM: Full Denture: Upper Loose/Missing/Broken Teeth: Yes and Lower Heart: RRR Lungs: CTA Assessment and Plan Assessment Anesthesia Assessment: Anesthesia Plan Discussed and Smoking Cess. Discussed Final Anesthetic Review Family History of Problems with Anesthesia: No History of Problems with Anesthesia: No (Never rec'd) NPO: Yes ASA Class: III Final Preanesthetic Review: Meds/Allgs Chart Reviewed, Consent Obtained/Reviewed and Anes Risks/Benef Reviewed Patient Risk: Intermediate Procedure Risk: Intermediate Anesthetic Plan Anesthetic Plan: GA Disposition: Standard PACU
--- NOTE | 2023-08-26 14:33 | PM.OP ---
Brief Operative Note Date of Service: 08/26/23 Pre-op diagnosis: right hip OA Post-op diagnosis: same Procedure: Right DOUG Implants: [place] Trident2 58 with 25 mm screw [place] Accolade2 #6 127 deg with +0 36 Surgeon: Tomasz Aguilar MD Anesthesia: GETA Was an Rug Dyer Helper used for this Procedure?: Yes Rug Dyer Helper: Doreen Leblanc Estimated blood loss (mL): 200 IV fluids (mL): 1,000 Pathology: other Condition: stable Disposition: PACU
--- NOTE | 2023-08-26 16:25 | PC.NURSE ---
Care transitioned to Joon BARREL LINE OPERATOR.
--- NOTE | 2023-08-26 17:07 | P.CONHOSP_ITS ---
History of Present Illness Data of Consult Service Date: 08/26/23 Requesting physician: Tomasz Aguilar Primary Care Provider: MD VALENCIA Hodge Reason for consult: medical management 58 year old male with history of copd, htn, hld who is a current 2 cigarette per day smoker admitted to orthopedic surgery for management of the right hip s/p right DOUG with consult placed hospital service for medical management. He has no complaints at this time. He is resting comfortably and denies any pain. He reports he is still smoking about 2 cigarettes on a daily basis, last smoked 2 days ago. No alcohol or drug use. Review of Systems Review of Systems: General: No fevers, malaise, unintentional weight loss HEENT: No blurred vision, diplopia. No sore throat, nasal congestion, rhinorrhea, sinus pain, ear pain Cardiovascular: No chest pain, palpitations, or leg edema Respiratory: No shortness of breath, wheezing, cough GI: No abdominal pain, nausea, vomiting, diarrhea, constipation, melena, hematochezia : No dysuria, hematuria, increased urinary frequency, decreased urinary output MSK: No myalgia, back pain Neuro: No headaches, weakness, paresthesias Skin: No rashes or lesions [facility] Medical History Atypical chest pain COPD (chronic obstructive pulmonary disease) Tobacco abuse disorder Hyperlipidemia HTN (hypertension) Functional capacity: independent ambulation Family History Mother Diabetes Hypertension Heart attack Father Hypertension Heart attack Surgical History No pertinent past surgical history Social History Are you a primary human services care specialist to a significant other at home: No Alcohol intake: never Patient Tobacco Use Status: Current everyday Tobacco user Tobacco use type: Cigarette Cigarettes Per Day: 2 Years Smoked: 25 Smoked in Last 30 Days: Yes Use of substances other than those prescribed or required for medical reasons: No Have you been hit, kicked, punched, or otherwise hurt by someone within the past year? If so, by whom?: No Are you DNR?: No Advance Directives: No Advance Directives Information Provided: No (declined) Advance Directives on File: No Recently lost weight without trying: No Eating poorly because of decreased appetite: No Nutrition Risks: No Nutritional Risk Poor oral hygiene: Yes (upper full and lower partial denture) Meds Allergies Allergy/AdvReac Type Severity Reaction Status Date / Time No Known Allergies Allergy Verified 08/21/23 12:40 Active Medications: Current Medications Acetaminophen (Acetaminophen 325 Mg Tablet) 650 mg PO Q6H PRN PRN Reason: Pain, Mild (Pain Scale 1-3) Albuterol Sulfate (Albuterol Sulfate 90 Mcg 8 Gm Inhaler) 1 puff INHALE QID PRN PRN Reason: shortness of breath or wheezing Aspirin (Aspirin 325 Mg Tablet) 325 mg PO BID@0100,1300 [facility] Atorvastatin Calcium (Atorvastatin Calcium 20 Mg Tablet) 20 mg PO DAILY [facility] Celecoxib (Celecoxib 200 Mg Capsule) 200 mg PO BID [facility] Docusate Sodium (Docusate Sodium 100 Mg Capsule) 100 mg PO BID [facility] Fentanyl (Fentanyl Citrate/Pf 100 Mcg/2 Ml Vial) 25 mcg IVPUSH Q5M PRN; Protocol PRN Reason: Pain, Moderate(Pain Scale 4-6) Fluticasone/Vilanterol (Fluticasone/Vilanterol 200/25 Blst.W.Dev) 1 puff INHALE RDAILY [facility] Hydromorphone HCl (Hydromorphone Hcl 0.5 Mg/0.5 Ml Syringe) 0.25 mg IVPUSH Q5M PRN; Protocol PRN Reason: Pain, Severe (Pain Scale 7-10) Hydromorphone HCl (Hydromorphone Hcl 0.5 Mg/0.5 Ml Syringe) 0.25 mg IVPUSH Q4H PRN; Protocol PRN Reason: Pain, Severe (Pain Scale 7-10) Lactated Ringer's (Lr) 1,000 mls @ 100 mls/hr IVCONT .Q10H [facility] Cefazolin Sodium/Dextrose (Ancef) 2 gm in 50 mls @ 100 mls/hr IV ONCE@1830 [facility] Stop: 08/26/23 18:59 Lisinopril (Lisinopril 10 Mg Tablet) 10 mg PO DAILY [facility]; Protocol Nicotine Polacrilex (Nicotine Polacrilex Lozenge 4 Mg Lozenge) 4 mg BUCCAL Q4H PRN PRN Reason: Nicotine Cravings Non-Formulary Medication (Nabumetone) 500 mg PO BID [facility] Ondansetron HCl (Ondansetron Hcl 4 Mg/2 Ml Vial) 4 mg IVPUSH ONCE PRN PRN Reason: Nausea and Vomiting Ondansetron HCl (Ondansetron Hcl 4 Mg/2 Ml Vial) 4 mg IVPUSH Q8H PRN PRN Reason: Nausea and Vomiting Oxycodone HCl (Oxycodone Hcl Immed Release 5 Mg Tablet) 5 mg PO Q4H PRN PRN Reason: Pain, Moderate(Pain Scale 4-6) Oxycodone HCl (Oxycodone Hcl Er 10 Mg Tab.Er.12h) 10 mg PO BID [facility] Sodium Chloride (0.9 % Sodium Chloride Flush 3 Ml Syringe) 3 ml IVFLUSH QSHIFT [facility] Tiotropium Saffell (Tiotropium Saffell 2.5 Mcg 1 Puff/2.5 Mcg Mist.Inhal) 2 puff INHALE RDAILY [facility] Home Medications Medication Instructions Recorded Confirmed Last Taken Type atorvastatin 20 mg tablet 20 mg PO DAILY 09/18/22 08/21/23 08/26/23 History lisinopril 10 mg tablet 10 mg PO QAM 09/18/22 08/21/23 08/26/23 History fluticasone propionate 230 2 puff inhalation BID 06/12/23 08/21/23 08/26/23 History mcg-salmeterol 21 mcg/actuation HFA inhaler (Advair HFA) nicotine (polacrilex) 4 mg buccal 4 mg PO Q4H PRN Nicotine Cravings 06/12/23 08/21/23 08/20/23 History lozenge umeclidinium 62.5 mcg/actuation 1 inh inhalation QAM 06/12/23 08/21/23 08/26/23 History blister powder for inhalation (Incruse Ellipta) nabumetone 500 mg tablet 500 mg PO BID 08/14/23 08/21/23 08/20/23 History Physical Exam Vital Signs and Narrative: Vital Signs: Last Vital Signs Temp 96.8 F 08/26/23 17:06 Pulse 81 08/26/23 17:06 Resp 18 08/26/23 17:06 BP 127/102 H 08/26/23 17:06 Pulse Ox 96 08/26/23 17:06 O2 Del Method Room Air 08/26/23 17:06 O2 Flow Rate 3 08/26/23 16:44 BMI result Body Mass Index 38.2 Constitutional - Awake and Alert, No apparent distress Eyes - PERRLA, EOMI Cardiovascular - S1S2, RRR, No edema Respiratory - Normal lung expansion, Normal respiratory effort, No respiratory distress, CTA bilaterally Gastrointestinal - NT / ND; +BS; No rebound or guarding Extremities - no calf tenderness bilaterally, no swelling Skin - Warm/Dry Neurological - Alert & oriented x3 Psychological - Appropriate affect Assessment and Plan (1) Osteoarthritis of right hip: Qualifiers: Osteoarthritis type: primary Qualified Code(s): M16.11 - Unilateral primary osteoarthritis, right hip Status: Acute Plan 58 year old male with history of copd, htn, hld who is a current 2 cigarette per day smoker admitted to orthopedic surgery for management of the right hip s/p right DOUG with consult placed hospital service for medical management. # oa right hip s/p DOUG pod 0 -plan per orthopedic surgery # hypertension -resume lisinopril a.m. # hyperlipidemia -continue statin # COPD -no acute exacerbation -continue maintenance inhalers, albuterol p.r.n. # cigarette smoking -nicorette p.r.n. -smoking cessation counseling provided #Severe obesity with BMI greater than 38 -weight loss efforts encouraged Thank you for allowing me to participate in this consult. Signing off at this time. Please do not hesitate to call for further questions.
[2023-08-26] MEDS: 0.9 % Sodium Chloride Flush 3 ML SYRINGE IVFLUSH (17:13)
[2023-08-26] MEDS: ceFAZolin Sodium/Dextrose,Iso 2 GM/50 ML PIGGYBACK IV (19:43)
[2023-08-26] MEDS: Celecoxib 200 MG CAPSULE PO (19:44)
[2023-08-26] MEDS: Docusate Sodium 100 MG CAPSULE PO (19:45)
[2023-08-27] VITALS (9 sets, daily range): BP systolic 82–147; BP diastolic 48–92; PULSE 74–88; RESP 16–20; TEMP 35.9–36.3; O2SAT 90–98
[2023-08-27] MEDS: Lactated Ringers 1,000 ML 100 ML IVCONT (01:12)
[2023-08-27 06:16] LABS: Basophils Percent Auto 0.1 % (0-2); Eosinophils Percent Auto 0.2 % (0-4); Hematocrit 40.6 % (42.0-52.0); Hemoglobin 13.5 g/dl (14.0-18.0); Imm Gran Pct Auto 0.7 % (0.0-0.4); Lymphocytes Absolute Auto 1.9 X10*3/uL (1.2-4.9); MANUAL DIFF FLAG SCAN; Mean Corpuscular HGB Conc 33.3 g/dl (31.0-36.0); Mean Corpuscular Hemoglobin 30.1 pg (27.0-33.0); Mean Corpuscular Volume 90.6 fL (80.0-98.0); Mean Platelet Volume 9.4 fL (9.4-12.4); Monocytes Absolute Auto 1.6 X10*3/uL (0.1-1.2); Monocytes Percent Auto 11.2 % (2-11); Neutrophils Absolute Auto 10.2 x10*3/uL (2.0-8.3); Neutrophils Percent Auto 73.8 % (45-73); Platelet Count 311 X10*3/uL (160-400); Red Blood Count 4.48 X10*6/uL (4.60-5.80); Red Cell Distribution Width 14.1 % (11.0-16.0); SCAN SMEAR FLAG 1; White Blood Count 13.8 X10*3/uL (4.8-10.8)
[2023-08-27 06:31] LABS: Anion Gap 10 (12-20); Blood Urea Nitrogen 19 mg/dL (9-16); Calcium 8.7 mg/dL (8.4-10.2); Carbon Dioxide 29 mmol/L (22-29); Chloride 100 mmol/L (96-108); Creatinine Clr Calc Pharmacy 85.3; Estimated Glomerular Filt Rate > 60; Glucose Fasting 114 mg/dL (60-99); Sodium 134 mmol/L (135-145)
--- NOTE | 2023-08-27 07:25 | PM.PNORT ---
Subjective Subjective Date of Service: 08/27/23 Interval history: POD1 s/p Patient is resting in bed comfortably No overnight events Pain is managed No additional complaints Physical Exam Vital Signs: Vital Signs: Last Vital Signs Temp 96.7 F L 08/27/23 04:00 Pulse 85 08/27/23 04:00 Resp 18 08/27/23 04:00 BP 147/87 H 08/27/23 04:00 Pulse Ox 98 08/27/23 04:00 O2 Del Method Nasal Cannula 08/27/23 04:00 O2 Flow Rate 3 08/27/23 04:00 BMI result Body Mass Index 39.3 Const: General: cooperative, healthy appearing and no acute distress Resp: Effort & Inspection: normal respiratory effort and able to speak in complete sentences Cardio: Rate: regular rate Peripheral pulses: Peripheral pulses 2+ throughout GI: Palpation (GI): Soft to palpation Skin: Lesions: no lesions Rashes: no rashes Extrem: Other: right hip dressing is c/d/i. Able to dorsi/plantar flex. Calf is supple and nontender. Sensation intact. Pedal pulse intact. Procedures Date of Service Date of Service: 08/27/23 Progress Note: A&P Assessment and plan (1) Status post total hip replacement, right: Status: Acute Plan Continue pain mgmnt Begin ASA for dvt ppx begin PT for RTHA - posterior precautions Dispo planning-Pending PT eval, pain mgmnt Time Spent With Patient Time: Total time managing care of this patient today ____ minutes. Quality Stroke Does the patient have a stroke diagnosis?: No VTE Prior VTE?: No VTE Risk Level:: Surgical - high VTE Device Contraindication: N/A - Device Ordered VTE Drug Contraindication: N/A - Med Ordered
--- NOTE | 2023-08-27 08:03 | HO.POSTANES ---
Post Anesthesia Evaluation Post Anesthesia Evaluation Date of Service: 08/27/23 Vital Signs: Vital Signs Temp Pulse Resp BP Pulse Ox O2 Del Method O2 Flow Rate 08/27/23 07:40 97.1 F 74 18 133/92 H 97 Nasal Cannula 3 08/27/23 04:00 96.7 F L 85 18 147/87 H 98 Nasal Cannula 3 Anesthesia: General Mental Status: Awake Pain Control: Satisfactory Nausea/Vomiting: None Hydration: Adequate Anesthesia-Related Issues: No Anes. Related Issues
[2023-08-27 08:25] LABS: SLIDE REVIEW VERIFIED
[2023-08-27] MEDS: Tiotropium Bromide 2.5 mcg 1 PUFF/2.5 MCG MIST.INHAL 2 PUFF INHALE (08:28)
[2023-08-27] MEDS: Fluticasone/Vilanterol 200/25 BLST.W.DEV 1 PUFF INHALE (08:28)
--- NOTE | 2023-08-27 14:17 | W.PM.OPN ---
Operative Note Operative Note Date of Service: 08/26/23 Narrative: Date of Service: 08/26/23 Pre-op diagnosis: right hip OA Post-op diagnosis: same Procedure: Right DOUG Implants: [place] Trident2 58 with 25 mm screw [place] Accolade2 #6 127 deg with +0 36 Surgeon: Tomasz Aguilar MD Anesthesia: GETA Was an Management Coordinator used for this Procedure?: Yes Management Coordinator: Doreen Leblanc Estimated blood loss (mL): 200 IV fluids (mL): 1,000 Pathology: other Condition: stable Disposition: PACU Procedure in detail: Patient was brought into the operating room and placed in the left lateral decubitus position. All bony prominences were well padded and the limb was prepped and draped in standard sterile fashion. A time-out was called to identify proper site procedure proper surgeon IV antibiotics and 1 g of transaxemic acid were administered. I began by making a curvilinear incision over the posterolateral aspect of the greater trochanter. Dissection was taken down to the tensor fascia which was incised in line with the incision and a Charnley retractor was placed. Cautery was used to maintain hemostasis. The hip was internally rotated and the external rotators were identified. The vessels were cauterized and a full-thickness capsular/external rotator layer was developed starting just proximal to the piriformis. This layer was tagged and a dull Hohmann retractor was placed underneath the neck in the hip was dislocated. A neck cut was made 1 cm proximal to the lesser trochanter and the head and neck were removed and measured 54mm on the back table. The head was eburnated and deformed. I then removed the labrum and cauterized the fovea. I started with a 48 reamer and medialized to the inner table. I initially placed a 56 cup after reaming to a 56 and was initially satrisfied with the stability but it reducing the hip the cup eppeared unstable and so I want to put a screw in the cup but in removing the liner the cup was contaminated. Therefore I sequentially reamed up to a size 58 and impacted a 58mm cup at 45 degrees of inclination and 25 degrees of version. I placed one 25 mm acetabular screw and the cup was stable. I then placed a 20 deg posterior lipped liner and turned my attention to the femur. I identified the piriformis insertion and used this as a starting point for my reyes cutter. The medius tendon was protected with a Hibs retractor. A Charnley awl was inserted in the canal and a curved curette used to remove the lateral bone. I irrigated copiously. I then sequentially broached in the patient's natural version to a size 6 and placed my trial implants. I used a #6/127/+0 based on my pre-operative template. Using a trail head I took the hip through range of motion. I was satisfied with the stability. I removed all instrumentation and copiously irrigated. I placed my final femoral implant and again took the hip through range of motion and was satisfied with the stability and length. The final +0 implant was impacted in place and the hip reduced. I then irrigated fcopiously and placed 1 g of local transaxemic acid. I performed a capsular closure with 2.0 fiberwire, Robert's fascia with 0 Vicryl, subcuticular with 2-0 Vicryl and the skin with geraldo. Patient was placed into a sterile dressing. Patient was extubated brought to the recovery room in stable condition. There were no known complications.
--- NOTE | 2023-08-27 15:52 | MHC.CM.PN ---
REFERRAL TO [facility] TO FOLLOW FOR SERVICES UPON DC
--- NOTE | 2023-08-27 18:04 | PM.EVENT ---
Event Note Date of Service: 08/27/23 Event Note: Pt with episode of hypotension with BP 82/48. He is asymptomatic without any sob, lightheadedness, syncope, chest pain. BP this morning was 133/92 and did receive 10mg lisinopril (home dose). Given 1L bolus IV NS and continues on maintenance IV LR @100ml/hr. Bp improved to 93/65. Given hypotension likely medication induced in post-operative setting and patient is asymptomatic, will continue monitoring blood pressures closely on med/tele. Hold lisinopril am. Will continue following. Time Spent With Patient Time: Total time managing care of this patient today ____ minutes.
--- NOTE | 2023-08-27 18:07 | PC.NURSE ---
BP improved to 93/65 and 109/65
--- NOTE | 2023-08-27 18:25 | PM.DS ---
DS: Providers Provider Date of Service: 08/28/23 Date of admission: 08/26/23 09:53 Primary care physician: Scot Mathews MD Consults: 08/26/23 16:47 Consult to Hospitalist Routine Comment: Consulting Provider: Hospitalist Reason For Exam: Routine medical managment 08/27/23 15:44 Consult to Medicine Stat Consulting Provider: Hospitalist Reason for consultation: Hypotension DS: Diagnosis Discharge Diagnosis (1) Status post total hip replacement, right: Status: Acute DS: Summary Hospital Course Hospital Course: The patient underwent a successful right total hip arthroplasty, they were transferred to PACU and then to the floor to recover. During their stay, their vitals were stable, afebrile at 96.9. Labs were unremarkable, H/H 10.7/32.3. POD 1 they were started on Aspirin 325mg po bid for DVT ppx, they also received Physical Therapy services twice a day. Prior to discharge, their dressing was clean dry and intact and the plan was to be discharged home with VNA services. Time Attestation Discharge coordination time: Less than 30 minutes Quality: Safe Use of Opioids Does Pt have an Active Cancer Diagnosis on the Problem List?: No Quality: Stroke Does the patient have a stroke diagnosis?: No Physical Exam Vital Signs: Vital Signs: Last Vital Signs Temp 97.1 F 08/27/23 15:14 Pulse 87 08/27/23 16:52 Resp 20 08/27/23 15:14 BP 109/65 08/27/23 18:08 Pulse Ox 90 L 08/27/23 16:52 O2 Del Method Room Air 08/27/23 16:52 O2 Flow Rate 3 08/27/23 07:40 BMI result Body Mass Index 39.3 Const: General: cooperative, healthy appearing and no acute distress Resp: Effort & Inspection: normal respiratory effort and able to speak in complete sentences Cardio: Rate: regular rate Peripheral pulses: Peripheral pulses 2+ throughout GI: Palpation (GI): Soft to palpation Skin: Lesions: no lesions Rashes: no rashes Extrem: Other: right hip dressing is c/d/i. Able to dorsi/plantar flex. Calf is supple and nontender. Sensation intact. Pedal pulse intact. DS: Data Data Completed and Pending Pending studies at discharge: Pending at discharge 08/26/23 14:17 Surgical [PTH] Routine Labs on day of discharge: Laboratory Results - last 24 hr 08/27/23 05:29 WBC 13.8 H RBC 4.48 L Hgb 13.5 L Hct 40.6 L MCV 90.6 MCH 30.1 MCHC 33.3 RDW 14.1 Plt Count 311 MPV 9.4 Immature Gran % (Auto) 0.7 H Neut % (Auto) 73.8 H Lymph % (Auto) 14.0 L Scott % (Auto) 11.2 H Eos % (Auto) 0.2 Baso % (Auto) 0.1 Lymph # (Auto) 1.9 Scott # (Auto) 1.6 H Eos # (Auto) 0.0 Baso # (Auto) 0.0 Abs Immat Gran (auto) 0.10 H Absolute Neuts (auto) 10.2 H Absolute Nucleated RBC 0.000 Nucleated RBC % (auto) 0.0 Smear Tech's Comments VERIFIED Sodium 134 L Potassium 5.0 Chloride 100 Carbon Dioxide 29 Anion Gap 10 L BUN 19 H Creatinine 1.10 Estim Creat Clear Calc 85.3 Estimated GFR > 60 Fasting Glucose 114 H Calcium 8.7 D Discharge Plan Discharge Anticipated Discharge Date/Time: 08/28/23 15:00 Patient Disposition: Home Health Service Discharge Diagnosis: s/p RTHA Referrals: Yair Hood PA-C [Physician Tobacco Feeder Catcher] - 09/11/23 1:30 pm Discharge Medications: New celecoxib 200 mg Capsule 200 mg PO BID 30 Days Qty: 60 0RF acetaminophen 325 mg Tablet 650 mg PO Q6H PRN (Reason: Pain, Mild (Pain Scale 1-3)) 30 Days Qty: 240 0RF aspirin 325 mg Tablet 325 mg PO BID@0100,1300 42 Days Qty: 84 0RF docusate sodium 100 mg Capsule 100 mg PO BID 30 Days Qty: 60 0RF oxycodone 5 mg Tablet 5 mg PO Q4H PRN (Reason: Pain, Moderate(Pain Scale 4-6)) 7 Days Qty: 42 0RF Rx Instructions: Partial Fill upon patient request. Continued (OCTAVIO) orlin Magana See Rx Instructions .MEDSUPPLY Qty: 1 0RF Rx Instructions: Ashtyn ordaz albuterol sulfate 90 mcg/actuation HFA aerosol inhaler 1 inh inhalation QID PRN (Reason: shortness of breath or wheezing) Qty: 8.5 0RF nabumetone 500 mg tablet 500 mg PO BID atorvastatin 20 mg tablet 20 mg PO DAILY lisinopril 10 mg tablet 10 mg PO QAM fluticasone propion-salmeterol [Advair HFA] 230-21 mcg/actuation HFA aerosol inhaler 2 puff inhalation BID nicotine (polacrilex) 4 mg lozenge 4 mg PO Q4H PRN (Reason: Nicotine Cravings) Incruse Ellipta 62.5 mcg/actuation blister with device 1 inh inhalation QAM Discharge Orders: Discharge Order (Routine); Ordered 08/28/23 Ordered By: Doreen Leblanc Diet: Advance to usual diet Activity on Discharge: Use cane or walker Stand Alone Forms: Patient Portal Discharge page Care Plan Goals: Restore fxn to right hip Health Concerns: None Plan of Treatment: Physical Therapy for total hip arthroplasty: posterior precautions, gait training, ROM, strength Limit stair climbing No showering, no tub bath-keep dressing clean, dry and intact No driving x6 weeks Continue Aspirin tabs x 6 weeks Follow up with [facility] in 2 weeks Assessment: Stable for discharge
--- NOTE | 2023-08-27 18:33 | W.MHC.F2F ---
Service Date Service Date: 08/27/23 Encounter Date of encounter: 08/28/23 Reasons for Services Signs and symptoms assessed: s/p RTHA. Pt. is considered homebound due to recent surgery. Unable to drive, poor balance, poor gait mechanics. Reason for physical therapy: home safety and mobility, therapeutic exercises, restore joint function, gait/transfer training, assess need for DME and ADL training Reason for occupational therapy: home safety and mobility, therapeutic exercises, restore joint function, gait/transfer training, assess need for DME and ADL training Homebound: Leaving the home is medically contraindicated at this time without the asist of a device and/or another person due th the listed conditions above and below. Reason homebound: unsteady gait / fall risk, leg weakness, pain with ambulation, pain with transfers, poor balance / fall risk and unable to drive Certification: Based on the above findings, I certify that this patient is confined to the home and needs intermittent mcc care, physical therapy and/or speech therapy, or continues to need occupational therapy. The patient is under my care, and I have initiated the establishment of the plan of care. The patient will be followed by a physician who will periodically review the plan of care. Time Spent With Patient Time: Total time managing care of this patient today ____ minutes.
[2023-08-28 04:00] VITALS: BP 111/54; PULSE 81; RESP 18; TEMP 36.1; O2SAT 94
[2023-08-28 06:04] LABS: MANUAL DIFF FLAG NO
[2023-08-28 06:24] LABS: Basophils Absolute Auto 0.1 X10*3/uL (0.0-0.2); Basophils Percent Auto 0.6 % (0-2); Eosinophils Absolute Auto 0.2 X10*3/uL (0.0-0.4); Eosinophils Percent Auto 1.3 % (0-4); Hematocrit 32.3 % (42.0-52.0); Hemoglobin 10.7 g/dl (14.0-18.0); Imm Gran Abs Auto 0.17 X10*3/uL (0.00-0.03); Imm Gran Pct Auto 1.4 % (0.0-0.4); Lymphocytes Absolute Auto 3.3 X10*3/uL (1.2-4.9); Lymphocytes Percent Auto 27.3 % (20-40); Mean Corpuscular HGB Conc 33.1 g/dl (31.0-36.0); Mean Corpuscular Hemoglobin 30.2 pg (27.0-33.0); Mean Corpuscular Volume 91.2 fL (80.0-98.0); Mean Platelet Volume 9.3 fL (9.4-12.4); Monocytes Absolute Auto 1.4 X10*3/uL (0.1-1.2); Monocytes Percent Auto 11.6 % (2-11); Neutrophils Absolute Auto 6.9 x10*3/uL (2.0-8.3); Neutrophils Percent Auto 57.8 % (45-73); Platelet Count 240 X10*3/uL (160-400); Red Blood Count 3.54 X10*6/uL (4.60-5.80); Red Cell Distribution Width 14.3 % (11.0-16.0)
[2023-08-28 06:27] LABS: Anion Gap 10 (12-20); Blood Urea Nitrogen 24 mg/dL (9-16); Calcium 8.2 mg/dL (8.4-10.2); Carbon Dioxide 27 mmol/L (22-29); Chloride 104 mmol/L (96-108); Creatinine Clr Calc Pharmacy 97.8; Estimated Glomerular Filt Rate > 60; Glucose Fasting 94 mg/dL (60-99); Potassium 4.3 mmol/L (3.3-5.1); Sodium 137 mmol/L (135-145)
[2023-08-28 07:52] VITALS: PULSE 86; RESP 16; O2SAT 92
[2023-08-28 08:00] VITALS: BP 119/64; PULSE 82; RESP 18; TEMP 36.3; O2SAT 94
--- NOTE | 2023-08-28 09:16 | MHC.CM.PN ---
Addendum entered by Alexia Crow 08/28/23 15:56: CM ATTEMPTED TO REACH PTS DISABILITY COUNSELOR AGAIN STILL NO RETURN CALL Addendum entered by Alexia Crow 08/28/23 14:59: CM RECEIVED A MESSAGE THAT PT WAS REQUESTING DOCUMENTS TO BE SENT TO THE DISABILITY OFFICE ABOUT HIS SURGERY A PHONE NUMBER OF [phone] WAS GIVEN TO CM CM CALLED AND LEFT A VM REQUESTING A RETURN CALL Original Note: PT TO DC HOME TODAY WITH [facility]
[2023-08-28 09:49] VITALS: BP 119/64; PULSE 82; O2SAT 94
[2023-08-28 13:00] VITALS: O2SAT 94
== END 2023-08-28 16:41 | disposition home health service (06) | DRG 324 ==
LOC: HO.SSSA 09:55 → HO.S3 15:25
PROVIDERS: Orthopaedic Surgery; Physician Assistant; Admitting Provider Physician Assistant; PCP Internal Medicine Geriatric Medicine; Visit Provider Physician Assistant
PROC: 0SR90JA Replacement of Right Hip Joint with Synthetic Substitute, Uncemented, Open Approach (ICD-10-PCS; CPT 27130; principal; 2023-08-26 11:50)
DX: M16.11 Unilateral primary osteoarthritis, right hip (principal); E78.5 Hyperlipidemia, unspecified; F17.210 Nicotine dependence, cigarettes, uncomplicated; I10 Essential (primary) hypertension; J44.9 Chronic obstructive pulmonary disease, unspecified; Z71.6 Tobacco abuse counseling; Z79.51 Long term (current) use of inhaled steroids; Z79.899 Other long term (current) drug therapy
CPT/HCPCS: 36415; 72170; 80048; 85025; 86850; 86900; 86901; 87640; 87641; 88304; 88311; 93005; 94640; 97110; 97116; 97162; 97166; 97535; 99024; C1713; C1776; J0131; J0665; J0690; J1100; J1170; J2250; J2371; J2405; J2704; J3010; J7120

== ENCOUNTER → 2023-08-26 09:53 | Outpatient (BNV) | payer MEDICAID, SELFPAY | PROVIDERS: Admitting Provider Physician Assistant; PCP Internal Medicine Geriatric Medicine; Visit Provider Physician Assistant | DX: M16.11 Unilateral primary osteoarthritis, right hip (principal) | CPT/HCPCS: 99222; 99499 ==

== ENCOUNTER → 2023-08-26 09:53 | Outpatient (BNV) | payer MEDICAID, SELFPAY | PROVIDERS: Admitting Provider Physician Assistant; PCP Internal Medicine Geriatric Medicine; Visit Provider Orthopaedic Surgery | DX: Z96.641 Presence of right artificial hip joint (principal) | CPT/HCPCS: 27130; 99024 ==

== ENCOUNTER 2023-09-11 13:21 | Outpatient (AMB) | payer MEDICAID, SELFPAY ==
--- NOTE | 2023-09-11 13:27 | A.OFFVIS_ITS ---
Intake Vital Signs 09/11/23 13:30 Height 5 ft 8 in Weight 230 lb BMI 35.0 Intake Visit Reasons: PO-RT DOUG 08/26/23 NE Intake Note: Cameron pickard 58 year old male presents today for a post operative right DOUG on 08/26/23. Patient reports he is doing well. Pain is tolerable. Requesting refill on his pain medication. Allergies No Known Allergies Allergy (Verified 09/11/23 13:30) HPI PO-RT DOUG 08/26/23 NE HPI Details 58-year-old male who returns to the [facility] today with an boiler cleaner for post-op right DOUG, 08/26/[address] Aguilar. He continues to have pain in his knee however the pain is improved and tolerable. He is doing well overall and has no other concerns today. [facility] Medical History Atypical chest pain COPD (chronic obstructive pulmonary disease) Tobacco abuse disorder Hyperlipidemia HTN (hypertension) Surgical History No pertinent past surgical history Family History Mother Diabetes Hypertension Heart attack Father Hypertension Heart attack Social History Household Members Other:: self Housing: House Are you a primary home care specialist to a significant other at home: No Do you presently have visiting nurse or other home services: No Alcohol intake: never Patient Tobacco Use Status: Former Tobacco user Tobacco use type: Cigar Cigarettes Per Day: 2 Years Smoked: 25 e-Cigarette/Vaping Use: Never Used Second Hand Smoke Exposure: No Review of Systems Const All systems reviewed & are unremarkable except as noted in HPI and below Physical Exam Vital Signs: BMI result Body Mass Index 35.0 Extrem Other: Right hip: Incision clean, dry and intact. No pain with hip flexion or ROM. NVI. Assessment & Plan Assessment & Plan (1) Status post total hip replacement, right: Code(s): Z96.641 - Presence of right artificial hip joint Plan [place] removed, steri strips applied. He will begin to transition to Outpatient PT to continue working on Gait training, ROM and quad strength. No driving for another 4 weeks. He will require ppx abx for dental procedures. He will f/u in 4 weeks, sooner if needed. Orders: Orders PT Evaluation and Treatment Today Z96.641 - Presence of right artificial hip joint Medications: Changed From oxycodone Partial Fill upon patient request. 5 mg PO Q4H 7 days PRN 42 tabs 0RF Pain, Moderate(Pain Scale 4-6) To oxycodone Partial Fill upon patient request. 5 mg PO Q6H PRN 28 tabs 0RF Pain, Moderate(Pain Scale 4-6) 7 days Patient Instructions: Scribed for Yair Hood PA-C, by Ilia Garza medical transcription supervisor, on 09/11/2023 at 1:30 PM EST. I, Yair Hood PA-C, have personally reviewed and agree with the information entered by the scribe. Coding Level of Care Code Global (07950) Diagnoses Status post total hip replacement, right Z96.641
[2023-09-11 13:30] VITALS: BMI 35.0
== END 2023-09-11 14:15 | disposition home or self-care (01) ==
PROVIDERS: PCP Internal Medicine Geriatric Medicine; Visit Provider Physician Assistant
DX: Z96.641 Presence of right artificial hip joint (principal)
CPT/HCPCS: 99024

== ENCOUNTER → 2023-09-11 13:21 | Outpatient (BNVA) | payer MEDICAID, SELFPAY | PROVIDERS: PCP Internal Medicine Geriatric Medicine; Visit Provider Physician Assistant | DX: Z47.1 Aftercare following joint replacement surgery (principal); Z96.641 Presence of right artificial hip joint | CPT/HCPCS: 99212 ==

== ENCOUNTER 2023-10-09 14:16 | Outpatient (AMB) | payer MEDICAID, SELFPAY ==
[2023-10-09 14:20] VITALS: BMI 35.0
--- NOTE | 2023-10-09 14:20 | A.OFFVIS_ITS ---
Intake Vital Signs 10/09/23 14:20 Height 5 ft 8 in Weight 230 lb BMI 35.0 Intake Visit Reasons: PO-RT DOUG 08/26/23 NE-follow up Intake Note: Cameron 58 year old male presents today for a post operative right DOUG on 08/26/23. States he is doing with P.T however he is now experiencing pain in his back when walking. Allergies No Known Allergies Allergy (Verified 10/09/23 14:23) HPI PO-RT DOUG 08/26/23 NE-follow up HPI Details 58-year-old male who returns to the [facility] today with an spanish interpreter/translator for post-op right DOUG, 08/26/[address] Aguilar. He states he has pain in his ba ck with ambulation but is doing well otherwise. He is working on physical therapy as instructed. He has no other concerns today. [facility] Medical History (Updated 08/29/23 @ 00:03 by Heidy Mulligan) Osteoarthritis of right hip Atypical chest pain COPD (chronic obstructive pulmonary disease) Tobacco abuse disorder Hyperlipidemia HTN (hypertension) Surgical History (Updated 10/13/23 @ 20:21 by Yair Hood PA-C) Status post total hip replacement, right Family History Mother Diabetes Hypertension Heart attack Father Hypertension Heart attack Social History Household Members Other:: self Housing: House Are you a primary dialysis patient care technician to a significant other at home: No Do you presently have visiting nurse or other home services: No Alcohol intake: never Patient Tobacco Use Status: Former Tobacco user Tobacco use type: Cigar Cigarettes Per Day: 2 Years Smoked: 25 e-Cigarette/Vaping Use: Never Used Second Hand Smoke Exposure: No Review of Systems Const All systems reviewed & are unremarkable except as noted in HPI and below Physical Exam Vital Signs: BMI result Body Mass Index 35.0 Extrem Other: Right hip: Incision clean, dry and intact. No pain with hip flexion or ROM. NVI. Assessment & Plan Assessment & Plan (1) Status post total hip replacement, right: Code(s): Z96.641 - Presence of right artificial hip joint Plan He will continue working with physical therapy focusing on glute, core, and lumbar stabilization. I did send him a prescription refill of Celebrex and also oxycodone but he will take oxycodone only twice a day and will be his last prescription. He is experiencing significant low back pain and continues to have flareups in his low back which is limiting his ability to walk long distances. I did explain that hopefully this is something he can work on with physical therapy. I would like to see him back in 6 weeks with x-rays and with Dr. Aguilar, sooner if needed. Medications: Changed From oxycodone Partial Fill upon patient request. 5 mg PO Q6H 7 days PRN 28 tabs 0RF Pain, Moderate(Pain Scale 4-6) To oxycodone Partial Fill upon patient request. 5 mg PO BID PRN 14 tabs 0RF Pain, Moderate(Pain Scale 4-6) 7 days Refilled celecoxib 200 mg PO BID 60 caps 0RF 30 days Patient Instructions: Scribed for Yair Hood PA-C, by Ilia Garza durable medical equipment technician, on 10/09/2023 at 2:30 PM EST. I, Yair Hood PA-C, have personally reviewed and agree with the information entered by the scribe. Coding Level of Care Code Global (19240) Diagnoses Status post total hip replacement, right Z96.641
== END 2023-10-09 15:04 | disposition home or self-care (01) ==
PROVIDERS: PCP Internal Medicine Geriatric Medicine; Visit Provider Physician Assistant
DX: Z96.641 Presence of right artificial hip joint (principal)
CPT/HCPCS: 99024

== ENCOUNTER → 2023-10-09 14:16 | Outpatient (BNVA) | payer MEDICAID, SELFPAY | PROVIDERS: PCP Internal Medicine Geriatric Medicine; Visit Provider Physician Assistant | DX: Z47.1 Aftercare following joint replacement surgery (principal); Z96.641 Presence of right artificial hip joint | CPT/HCPCS: 99212 ==

== ENCOUNTER 2023-11-05 08:04 | Outpatient (REF) | payer MEDICAID, SELFPAY ==
[2023-11-05 11:37] LABS: Anion Gap 13 (12-20); Blood Urea Nitrogen 12 mg/dL (9-16); Calcium 9.3 mg/dL (8.4-10.2); Carbon Dioxide 26 mmol/L (22-29); Chloride 107 mmol/L (96-108); Estimated Glomerular Filt Rate > 60; Glucose Random 96 mg/dL (60-115); Potassium 3.9 mmol/L (3.3-5.1); Sodium 142 mmol/L (135-145)
[2023-11-05 11:59] LABS: HIV AB/AG Nonreactive (Nonreactive); HIV Num 1 0.05 S/CO (0.00-0.99); ~Hepatitis C Antibody Nonreactive (Nonreactive)
== END 2023-11-05 08:05 | disposition home or self-care (01) ==
LOC: HO.HHCL 08:04
PROVIDERS: Visit Provider Internal Medicine Geriatric Medicine
DX: Z11.59 Encounter for screening for other viral diseases (principal); Z11.4 Encounter for screening for human immunodeficiency virus [HIV]; I10 Essential (primary) hypertension
CPT/HCPCS: 36415; 80048; 86803; 87389

== ENCOUNTER 2023-11-20 08:59 | Outpatient (AMB) | payer MEDICAID, SELFPAY ==
--- NOTE | 2023-11-20 09:00 | A.OFFVIS_ITS ---
Intake Vital Signs 11/20/23 09:11 Height 5 ft 8 in Weight 230 lb BMI 35.0 Intake Visit Reasons: PO-RT DOUG 08/26/23 NE Intake Note: Cameron is 58 year old male who presents today for a post operative right DOUG on 08/26/23. He is doing well, he has some increased pain with prolonged activity that improves with rest. Given his last Oxycodone rx at his visit with TM Allergies No Known Allergies Allergy (Verified 10/09/23 14:23) HPI PO-RT DOUG 08/26/23 NE HPI Details History this is doing well 6 weeks status post right hip replacement. He is starting to work with physical therapy. He complains of back pain when he walks for long distances. He denies fevers and chills. [facility] Medical History (Updated 08/29/23 @ 00:03 by Heidy Mulligan) Osteoarthritis of right hip Atypical chest pain COPD (chronic obstructive pulmonary disease) Tobacco abuse disorder Hyperlipidemia HTN (hypertension) Surgical History (Updated 10/13/23 @ 20:21 by Yair Hood PA-C) Status post total hip replacement, right Family History Mother Diabetes Hypertension Heart attack Father Hypertension Heart attack Social History Household Members Other:: self Housing: House Are you a primary tree care foreman to a significant other at home: No Do you presently have visiting nurse or other home services: No Alcohol intake: never Patient Tobacco Use Status: Former Tobacco user Tobacco use type: Cigar Cigarettes Per Day: 2 Years Smoked: 25 e-Cigarette/Vaping Use: Never Used Second Hand Smoke Exposure: No Physical Exam Vital Signs: BMI result Body Mass Index 35.0 Extrem Other: Trendelenburg gait on the right No pain with hip range of motion Inc c/d/i Results Reviewed Results Reviewed: I personally reviewed relevant radiographs. Right DOUG in expected post operative position with no hardware complications or evidence of loosening Assessment & Plan Assessment & Plan (1) Status post total hip replacement, right: Code(s): Z96.641 - Presence of right artificial hip joint Plan: Patient is a 58 yo gentleman now 6 weeks status post right hip replacement. He may discontinue his aspirin and I will wean him off his oxycodone. I will write him a prescription for 1 pill a day for 2 weeks and then he should stop altogether. He will contiue PT We will also make a referral to the pain management doctor as his back pain has been present off and on for years. See him back in 6 weeks. Orders: Orders XR pelvis 1-2V Today M25.559 - Pain in unspecified hip Medications: Changed From oxycodone Partial Fill upon patient request. 5 mg PO BID 7 days PRN 14 tabs 0RF Pain, Moderate(Pain Scale 4-6) To oxycodone Partial Fill upon patient request. 5 mg PO BEDTIME PRN 15 tabs 0RF Pain, Moderate(Pain Scale 4-6) 15 days Coding Level of Care Code Global (03236) Diagnoses Status post total hip replacement, right Z96.641
[2023-11-20 09:11] VITALS: BMI 35.0
== END 2023-11-20 10:27 | disposition home or self-care (01) ==
PROVIDERS: PCP Internal Medicine Geriatric Medicine; Visit Provider Orthopaedic Surgery
DX: Z96.641 Presence of right artificial hip joint (principal)
CPT/HCPCS: 99024

== ENCOUNTER 2023-11-20 10:52 | Outpatient (REF) | payer MEDICAID, SELFPAY ==
--- NOTE | ~2023-11-20 | XR_ITS ---
EXAMINATION: XR HIP, RIGHT CLINICAL INFORMATION: Right hip pain COMPARISON: Right hip x-ray on 08/26/2023 TECHNIQUE: Frontal x-ray of the pelvis, frontal and crosstable lateral X-rays of right hip. FINDINGS: BONES: Bony structures are intact. Persistent subchondral cystic erosions are seen in left femoral head. There is no focal bone destruction or periosteal reaction seen. JOINTS: There is normal alignment of total hip arthroplasty prostheses. SOFT TISSUE: Soft tissue is normal. No abnormal air collection is seen. XR/XR hip RT min 2V IMPRESSION: 1. Unchanged normal pelvis x-ray. No fracture or dislocation is seen. 2. Unchanged normal alignment of right total hip arthroplasty prostheses. No fracture or dislocation or signs of loosening are seen. 3. Unchanged left femoral head subcortical cystic erosions compatible with osteoarthritis of left hip. .
== END 2023-11-20 10:53 | disposition home or self-care (01) ==
LOC: HO.HOSX 10:52
PROVIDERS: Visit Provider Orthopaedic Surgery
DX: Z47.1 Aftercare following joint replacement surgery (principal); Z96.641 Presence of right artificial hip joint
CPT/HCPCS: 73502; 99212

== ENCOUNTER 2023-12-03 14:05 | Outpatient (AMB) | payer MEDICAID, SELFPAY ==
[2023-12-03 14:09] VITALS: BP 120/67; PULSE 96; O2SAT 92; BMI 37.7
--- NOTE | 2023-12-03 14:09 | A.OFFVIS_ITS ---
Intake Vital Signs 12/03/23 14:09 Height 5 ft 8 in Weight 248 lb 0.321 oz BMI 37.7 BP 120/67 Blood Pressure Location Rt brachial Position Sitting Pulse 96 Pulse Source Doppler Pulse Oximetry (%) 92 Oxygen Delivery Method Room Air Intake Visit Reasons: COPD Cruise Counselor Required: Yes Cruise Counselor Name: Radha Adan Chambers Allergies No Known Allergies Allergy (Verified 10/09/23 14:23) HPI COPD HPI Details 58-year-old gentleman, recent 60 pack-ye ar smoker, with underlying diastolic dysfunction, now followed for COPD and pulmonary nodules. After the last office visit patient has completed his pulmonary function testing that shows underlying moderate COPD. He has been using Advair, Incruse, and albuterol MDI with good control of his symptoms. He denies any recent e xacerbations. His follow-up CT chest showed stable 8 mm pulmonary nodule. [facility] Medical History (Updated 11/20/23 @ 10:52 by Tomasz Aguilar MD) Osteoarthritis of right hip Atypical chest pain COPD (chronic obstructive pulmonary disease) Tobacco abuse disorder Hyperlipidemia HTN (hypertension) Surgical History (Updated 10/13/23 @ 20:21 by Yair Hood PA-C) Status post total hip replacement, right Family History Mother Diabetes Hypertension Heart attack Father Hypertension Heart attack Social History (Updated 12/03/23 @ 14:13 by Radha Mcdowell Guzman) Household Members Other:: self Housing: House Are you a primary child care provider to a significant other at home: No Do you presently have visiting nurse or other home services: No Alcohol intake: never Patient Tobacco Use Status: Former Tobacco user Tobacco use type: Cigar Cigarettes Per Day: 2 Years Smoked: 25 e-Cigarette/Vaping Use: Never Used Second Hand Smoke Exposure: No Review of Systems Const Denies daytime sleepiness, Denies excessive sweating, Denies fatigue, Denies fever(s), Denies lethargy, Denies malaise, Denies night sweats, Denies snoring and Denies weight loss Eyes Denies blurry vision and Denies itchy eyes ENT Denies nasal congestion, Denies post nasal drip, Denies sinus pain, Denies sinus pressure and Denies other ( Thrush) Card Denies chest pain, Denies pedal edema, Denies dyspnea, Denies orthopnea and Denies paroxysmal nocturnal dyspnea Resp Denies cough, Denies hemoptysis, Denies excessive phlegm production, Denies dyspnea, Denies snoring and Denies wheezing GI Denies abdominal pain and Denies heartburn Musc Denies myalgias, Denies arthralgias and Denies joint swelling Skin/Breast Denies rash Neuro Denies memory loss and Denies seizure-like activity Psych Denies abnormal sleep pattern, Denies anxiety and Denies memory loss Endo Denies excessive sweating, Denies fatigue and Denies heat intolerance Jorden/Lymph Denies easy bruising Aller/Immun Denies itchy eyes, Denies seasonal rhinorrhea and Denies wheezing Physical Exam Vital Signs: Last Vital Signs Pulse 96 12/03/23 14:09 BP 120/67 12/03/23 14:09 Pulse Ox 92 12/03/23 14:09 Oxygen Delivery Method Room Air 12/03/23 14:09 BMI result Body Mass Index 37.7 Const General: no acute distress and alert Nutritional Appearance: not obese Orientation/consciousness: Other orientation findings ( oriented) HEENT Head: Yes atraumatic Eyes General: appearance normal, both eyes and all related structures Sclerae: sclerae normal EOM: EOMs intact bilaterally Neck Neck: Yes supple Lymphatic: no lymphadenopathy noted Resp Effort & Inspection: normal respiratory effort and no use of accessory muscles Auscultation: clear to auscultation bilaterally Cardio Rate: regular rate Rhythm: regular rhythm Heart sounds: no gallops, no murmurs and no rubs Skin General skin exam: other ( warm) Extrem General: No clubbing, No cyanosis and No edema Assessment & Plan Assessment & Plan (1) COPD (chronic obstructive pulmonary disease): Code(s): J44.9 - Chronic obstructive pulmonary disease, unspecified Plan: Well controlled on current regimen of Advair, Incruse, and albuterol MDI. Continue current regimen. (2) Pulmonary nodules: Code(s): R91.8 - Other nonspecific abnormal finding of lung field Plan: Results of follow-up CT chest reviewed, stable 8 mm pulmonary nodule. Repeat CT chest in July of 2024. Orders: Orders CT chest wo IV con 08/03/24 R91.8 - Other nonspecific abnormal finding of lung field Coding Level of Care Code Est Pt Level 4 (64056) Diagnoses COPD (chronic obstructive pulmonary disease) J44.9 Pulmonary nodules R91.8
== END 2023-12-03 14:37 | disposition home or self-care (01) ==
PROVIDERS: PCP Internal Medicine Geriatric Medicine; Referring Provider Internal Medicine Geriatric Medicine; Visit Provider Internal Medicine Pulmonary Disease
DX: J44.9 Chronic obstructive pulmonary disease, unspecified (principal); R91.8 Other nonspecific abnormal finding of lung field
CPT/HCPCS: 99214

== ENCOUNTER → 2023-12-03 14:05 | Outpatient (BNVA) | payer MEDICAID, SELFPAY | PROVIDERS: PCP Internal Medicine Geriatric Medicine; Visit Provider Internal Medicine Pulmonary Disease | DX: J44.9 Chronic obstructive pulmonary disease, unspecified (principal); R91.8 Other nonspecific abnormal finding of lung field | CPT/HCPCS: 99212 ==

== ENCOUNTER 2023-12-10 13:11 | Outpatient (AMB) | payer MEDICAID, SELFPAY ==
--- NOTE | 2023-12-10 13:52 | MHC.OFFVIS ---
Intake Vital Signs 12/10/23 14:02 Height 5 ft 8 in Weight 250 lb BMI 38.0 BP 120/76 Blood Pressure Location Lt brachial Position Sitting Respiration 17 Pulse 101 H Pulse Source Pulse Oximeter Pulse Oximetry (%) 98 Oxygen Delivery Method Room Air Intake Visit Reasons: Dorsalgia, Unspecified/Other Chronic Pain Intake Note: Patient comes in for initial visit was referred by orthopedics. Reports pain 09/03. Allergies No Known Allergies Allergy (Verified 12/10/23 14:02) HPI Dorsalgia, Unspecified/Other Chronic Pain HPI Details Conversation with this patient was helped by voice java user interface developer Dennise [id number] HPI Comments History of Present Illness Details Mr. Calderon is very pleasant 58 years old gentleman who came to my office today with complains on pain in the mid level lumbar spine. He reports that his pain radiates into bilateral lower abdomen and into the groins. He reports that he can not sleep normally because of his pain but he can not do activities of daily living he can not take care of himself he can not function normally he is currently unemployed. He reports in terms of tissue damage his pain is pulsing throbbing pounding, pinching cramping crushing, hot burning scalding and searing. He was recently under care of orthopedic surgery and he had total hip replacement of the right hip with very good results. However he started to complain on pain in the back and he was sent to x-ray results of which dictated as below. He was sent for the evaluation to this office. His past medical history is significant for asthma and bronchitis. His past surgical history is above. He admits smoking 5 cigarettes a day denies drinking alcohol denies caffeinated beverages and denies recreational drugs. [facility] Medical History (Updated 12/10/23 @ 15:35 by Conor Bravo MD) Osteoarthritis of right hip Atypical chest pain COPD (chronic obstructive pulmonary disease) Tobacco abuse disorder Hyperlipidemia HTN (hypertension) Surgical History (Updated 10/13/23 @ 20:21 by Yair Hood PA-C) Status post total hip replacement, right Family History Mother Diabetes Hypertension Heart attack Father Hypertension Heart attack Social History (Updated 12/03/23 @ 14:13 by VIRGILIO Davis) Household Members Other:: self Housing: House Are you a primary healthcare technician to a significant other at home: No Do you presently have visiting nurse or other home services: No Alcohol intake: never Patient Tobacco Use Status: Former Tobacco user Tobacco use type: Cigar Cigarettes Per Day: 2 Years Smoked: 25 e-Cigarette/Vaping Use: Never Used Second Hand Smoke Exposure: No Review of Systems Const Denies daytime sleepiness and Denies fever(s) ENT Reports Normal hearing present Card Denies chest pain and Denies pedal edema Resp Denies cough, Denies hemoptysis and Denies excessive phlegm production GI Denies abdominal pain and Denies heartburn Musc Denies myalgias, Denies arthralgias and Denies joint swelling Neuro Reports Normal hearing present, Denies Abnormal speech present, Denies confusion, Denies memory loss, Denies seizure-like activity and Denies Sensory deficit (Neuro) Psych Denies abnormal sleep pattern, Denies anxiety, Denies confusion and Denies memory loss Physical Exam Vital Signs: Last Vital Signs Pulse 101 H 12/10/23 14:02 Resp 17 12/10/23 14:02 BP 120/76 12/10/23 14:02 Pulse Ox 98 12/10/23 14:02 Oxygen Delivery Method Room Air 12/10/23 14:02 BMI result Body Mass Index 38.0 Const General: no acute distress and well developed; No confusion Nutritional Appearance: obese Orientation/consciousness: patient oriented x3 and No confusion Eyes General: appearance normal, both eyes and all related structures Pupils: Equal, round and reactive pupils present EOM: EOMs intact bilaterally Neck Neck: Yes full ROM Chest Chest palpation & inspection: normal inspection of the chest Resp Effort & Inspection: normal respiratory effort, able to speak in complete sentences, normal respiratory pattern, no audible wheezes and no cough Cardio Jugular venous distension: no JVD GI Inspection: Yes normal to inspection Back/Spine/Pelvis Other: On physical exam this patient presents as a puzzle. All the tests I tried to do for him are negative on physical exam. He reports no tenderness on palpation in paraspinal or spinal regions of the lumbar spine no tenderness on palpation in the projection of the sacral bone. He has no tenderness on palpation in the flanks. SLR is negative bilaterally. Alfredo test is negative bilaterally. Fourteen finger test is negative bilaterally. Stinchfield test is negative bilaterally. Flexing forward and flexing backwards are rather unremarkable and he does not report pain with those maneuvers. Valsalva is negative for pain increase. Neuro General: patient oriented x3, gait normal and No confusion Cranial nerves: Yes CN's II-XII intact bilaterally, Yes Equal, round and reactive pupils present, Yes Normal hearing present and Yes Ability to bilaterally elevate shoulders present Speech: No Abnormal speech present Gait exam (Neuro): Normal gait present Motor exam (neuro): 5/5 motor strength present throughout Sensory Exam: No Sensory deficit (Neuro) Extrem General: No pedal edema Psych Speech and movement: Normal speech and movement present Affect: normal affect Attitude: cooperative Thought process: Normal thought process present Thought content: Normal thought content present Insight: Good insight present (Psych) Judgement: Good judgement present (Psych) Results Reviewed Results Reviewed: Radiograph x-rays lumbosacral spine. 12/03/2023. Findings There is bony demineralization. Vertebral body heights are normal. L4-5 there is 4 mm anterolisthesis. The remaining disc spaces are relatively well-maintained. No acute fracture or spondylolisthesis is seen. There is mild multilevel anterior spondylosis most pronounced extending from see 9 T10 through T11 T12 as well as L4-5. The posterior elements are intact. There is facet arthropathy at L5-S1. The paravertebral soft tissues are unremarkable. A right hip arthroplasty is noted. Assessment & Plan Assessment & Plan (1) Chronic pain syndrome: Code(s): G89.4 - Chronic pain syndrome (2) Spondylosis, lumbar, with myelopathy: Code(s): M47.16 - Other spondylosis with myelopathy, lumbar region (3) Spondylolisthesis, lumbar region: Code(s): M43.16 - Spondylolisthesis, lumbar region Plan As I mentioned above the physical exam of this patient did not bring any hints to what is wrong with this gentleman and why he has pain in the center of the lower back radiating into the suprapubic area on the lateral flanks. I want to send him for the MRI of the lumbar spine in hope that the MRI will give us the answer on this pain generators. I will see him after his MRI will be completed. Orders: Orders MR lumbar spine wo con Today G89.4 - Chronic pain syndrome, M43.16 - Spondylolisthesis, lumbar region, M47.16 - Other spondylosis with myelopathy, lumbar region Coding Level of Care Code New Pt Level 3 (89815) Diagnoses Chronic pain syndrome G89.4 Spondylosis, lumbar, with myelopathy M47.16 Spondylolisthesis, lumbar region M43.16
[2023-12-10 14:02] VITALS: BP 120/76; PULSE 101; RESP 17; O2SAT 98; BMI 38.0
== END 2023-12-10 15:08 | disposition home or self-care (01) ==
PROVIDERS: PCP Internal Medicine Geriatric Medicine; Referring Provider Orthopaedic Surgery; Visit Provider Anesthesiology
DX: G89.4 Chronic pain syndrome (principal); M47.16 Other spondylosis with myelopathy, lumbar region; M43.16 Spondylolisthesis, lumbar region
CPT/HCPCS: 99203

== ENCOUNTER → 2023-12-10 13:11 | Outpatient (BNVA) | payer MEDICAID, SELFPAY | PROVIDERS: PCP Internal Medicine Geriatric Medicine; Referring Provider Orthopaedic Surgery; Visit Provider Anesthesiology | DX: M47.16 Other spondylosis with myelopathy, lumbar region (principal); M43.16 Spondylolisthesis, lumbar region; G89.4 Chronic pain syndrome | CPT/HCPCS: 99202 ==

== ENCOUNTER 2023-12-19 10:00 | Outpatient (RCR) | payer MEDICAID, SELFPAY ==
--- NOTE | 2023-09-11 15:01 | MHC.PT.EP ---
[facility] [place] Office [place] Office [place] Office [address] Cat Perkins [address] [phone] F: [phone] F: [phone] F: [phone] F: [phone] Physical Therapy Plan of Care Date of Evaluation: 09/11/23 Date of Surgery: 08/26/23 Diagnosis: S/P Rt DOUG Assessment: 58 YO MALE REF TO PT S/P Rt POSTERIOR APPROACH DOUG ON 08/26/23- HE RESIDES ALONE IN A FIRST FLOOR APT IN [facility] AND IS CURRENTLY AMB W A W/WALKER (ALTHOUGH PRESENTED TODAY W/O ASST DEVICE) . OBJECTIVE FINDINGS: LIMITED AROM Rt LE, TIGHT PSOAS MM HERIBERTO AND DECR ANKLE DF HERIBERTO; DECR STRENGTH IN PROX / LUMBOPELVIC AND Rt LE, POST-OP PAIN IN RIGHT HIP GIRDLE / Rt KNEE,AND HEALING LATERAL POSTERIOR Rt HIP INCISION. FUNCTIONALLY, Pt IS AMB W A W/WALKER- HE HAS COMPENSATORY GAIT, MODIFIED STAIR MGMT, DECR STANDING, SLEEPING, AND DECR LINA TO MORE DYNAMIC ADLs . Pt IS A GOOD PT CANDIDATE TO GUIDE HIM IN HIS POST-OP DOUG COURSE, REVIEWING DOUG PRECAUTIONS, ADDRESSING THE ABOVE FINDINGS, PAIN MGMT, AND MAXIMIZING FUNCTIONAL INDEPENDENCE. Frequency and Duration: The patient will be seen 2 x WK x 8 WKS Short Term Goals: *IMPROVE Rt LE PROPRIOCEPTION/ LUMBOPELVIC STABILITY *Pt'S RIGHT HIP PAIN DECR TO 2-3/10 *INCR FLEXIB IN TRUNK/ PSOAS/HIP IR/ CALF MM TO IMPROVE EFFICIENCY OF GAIT ON LEVEL AND STAIRS Mcc Goals: *Pt WILL IMPROVE LUMBOPELVIC/ Rt LE STRENGTH TO AT LEAST 5-/5 *IMPROVED 30 SEC SIT <-> STAND TEST( 6.5 R W UEs ASSIST AT EVAL) *Pt REPORT INCREASED ADL/ ACTIVITY LINA EVIDENT W IMPROVED LEFI SCORE *Pt INDEP W PROGRESSIVE HEP AND SELF-SX MGMT TECHN Treatment Plan: Modalities to reduce pain, spasms and effusion. Manual therapy to restore motion and function. Therapeutic exercise to improve strength and flexibility. Neuromuscular re-education for posture and balance. Therapeutic activities to return to functional activities of daily living. Electronically signed by: ABDI NÚÑEZ PT Please sign and return to therapist. Thank you for your referral.
--- NOTE | ~2023-12-19 | XR_ITS ---
EXAMINATION: XR LUMBOSACRAL SPINE CLINICAL INFORMATION: Severe lower back pain without sciatica. COMPARISON: Radiographs dated 06/06/2022. TECHNIQUE: AP and lateral views of the lumbar spine and lateral view of the lumbosacral junction. FINDINGS: There is bony demineralization. Vertebral body heights are normal. At L4-L5, there is a 4 mm anterolisthesis. The remaining disc spaces are relatively well-maintained. No acute fracture or spondylolisthesis is seen. There is multi-level anterior spondylosis, most pronounced extending from T9-T10 through T11-T12 and at L4-L5. The posterior elements are intact. There is facet arthropathy at and L5-S1. The paravertebral soft tissues are unremarkable. A right hip arthroplasty is noted. XR/XR lumbar spine 2-3V IMPRESSION: 1. There is moderate degenerative disc disease at L4-L5. 2. There is multi-level lower thoracic and lumbar endplate arthropathy. 3. There is facet arthropathy at L5-S1.
--- NOTE | 2023-12-19 11:13 | MHC.PT.DC ---
[facility] [place] Office [place] Office [place] Office [address] Cat Perkins [address] [phone] F: [phone] F: [phone] F: [phone] F: [phone] Physical Therapy Discharge Report Diagnosis: S/P Rt DOUG Date of Surgery: 08/26/23 Date of Evaluation: 09/11/23 Date of Discharge: 12/19/23 Treatments to Date: 14 Cancellations to Date: 2 No Shows to Date: 0 Discharge Status: Achieved Goals Improved Function Independent with HEP Discharge Summary: DAVID HAS PROGRESSED IN HIS Rt DOUG POST OP COURSE-> HE AMB INDEP W/O ASST DEVICES ON LEVEL AND STAIRS, IMPROVED TUG (13 SEC) AND 30 SECOND SIT <-> STAND (8.5 REPS), HE ALSO DEMON SLS Rt x 12 SEC. THE Pt HAS IMPROVED STRENGTH AND HAS A BETTER AWARENESS OF POSTURE TO REDUCE LB STRESS. HE ARRIVED TODAY W NEW ONSET HERIB[employer]O [employer] FASCIA SORENESS, AND HE BENEFITTED FROM EDUC RE SELF-MGMT TIPS. THE Pt IS D/C 'D THIS DATE FROM PT W HEP, HAVING MET HIS PT GOALS AT THIS TIME, ENCOURAGING HEP COMPLIANCE UPON D/C. Electronically signed by: ABDI NÚÑEZ,PT Please sign and return to therapist. Thank you for your referral.
== END 2023-12-19 11:13 | disposition home or self-care (01) ==
LOC: HO.PT 10:00
PROVIDERS: PCP Internal Medicine Geriatric Medicine; Visit Provider Physician Assistant
DX: Z96.641 Presence of right artificial hip joint (principal)
CPT/HCPCS: 72100; 97110; 97162; 97530

== ENCOUNTER 2023-12-22 12:05 | Outpatient (REF) | payer MEDICAID, SELFPAY ==
--- NOTE | ~2023-12-22 | MR_ITS ---
EXAMINATION: MR LUMBAR SPINE WITHOUT CONTRAST CLINICAL INFORMATION: Spondylolisthesis COMPARISON: Lumbar spine radiographs 11/26/2023 TECHNIQUE: MRI of the lumbar spine was obtained using routine sequences without contrast. FINDINGS: Normal lumbar lordosis is preserved. Trace anterolisthesis at L4-L5. Mild chronic height loss and anterior wedging of the T11 vertebral body with maintained lumbar vertebral body heights. There is no suspicious osseous lesion. Multilevel disc desiccation with preserved disc height. There is diffuse epidural lipomatosis. Level by level detail as follows: L1-L2: Epidural lipomatosis contributes to moderate thecal sac effacement. Patent neural foramina. L2-L3: Epidural lipomatosis contributes to moderate to severe thecal sac effacement. Small left foraminal disc protrusion mildly narrows the left neural foramen. Widely patent right neural foramen. L3-L4: Epidural lipomatosis moderately effaces the thecal sac. Shallow annular disc bulge and mild facet arthrosis mildly narrow the neural foramina. L4-L5: Epidural lipomatosis, annular disc bulge with left foraminal annular fissure, and advanced bilateral facet arthrosis with ligamentum flavum thickening and small right facet joint effusion. Moderate thecal sac effacement. Moderate right and mild to moderate left neural foraminal stenosis with slight impingement upon the exiting/extraforaminal right L4 nerve root. L5-S1: Annular disc bulge, bilateral facet arthrosis, and epidural lipomatosis causing severe effacement/compression of the thecal sac. Moderate bilateral neural foraminal stenosis with slight impingement upon the exiting/extraforaminal L5 nerve roots. The conus medullaris terminates at the level of L1-L2. The distal spinal cord is normal in appearance. No epidural fluid collection, hematoma, or mass. No significant abnormalities of the paraspinal musculature. Limited evaluation of the intra-abdominal structures without significant abnormalities. The abdominal aorta is of normal contour and caliber. Susceptibility artifact from right hip arthroplasty. Osseous fusion across the right and possibly also left sacroiliac joints. MR/MR lumbar spine wo con IMPRESSION: 1. Diffuse epidural lipomatosis in conjunction with mild spondylosis contribute to multilevel thecal sac effacement, most pronounced at L5-S1 where there is severe effacement and compression of the thecal sac. Moderate to severe L2-L3 and moderate L4-L5 the thecal sac effacement. 2. At L4-L5, there is moderate right and mild to moderate left neural foraminal stenosis with slight impingement upon the exiting/extraforaminal right L4 nerve root. 3. At L5-S1, there is moderate bilateral neural foraminal stenosis with slight impingement upon the exiting/extraforaminal L5 nerve roots. 4. Osseous fusion across the right and possibly also left sacroiliac joints.
== END 2023-12-22 12:06 | disposition home or self-care (01) ==
LOC: HO.MRI 12:05
PROVIDERS: PCP Internal Medicine Geriatric Medicine; Visit Provider Anesthesiology
DX: M43.16 Spondylolisthesis, lumbar region (principal); M47.16 Other spondylosis with myelopathy, lumbar region; G89.4 Chronic pain syndrome
CPT/HCPCS: 72148

== ENCOUNTER 2024-01-01 09:26 | Outpatient (REF) | payer MEDICAID, SELFPAY | END 2024-01-01 09:27 | disposition home or self-care (01) | LOC: HO.HOSX 09:26 | PROVIDERS: Visit Provider Orthopaedic Surgery | DX: Z13.89 Encounter for screening for other disorder (principal) ==

== ENCOUNTER 2024-01-21 09:08 | Outpatient (AMB) | payer MEDICAID, SELFPAY ==
--- NOTE | 2024-01-21 09:46 | A.OFFVIS_ITS ---
Vital Signs 01/21/24 09:53 Height 5 ft 8 in Weight 254 lb 4 oz BMI 38.7 BP 140/90 H Blood Pressure Location Lt brachial Position Sitting Respiration 16 Pulse 91 Pulse Source Pulse Oximeter Pulse Oximetry (%) 96 Oxygen Delivery Method Room Air Intake Visit Reasons: Discuss MRI Results Intake Note: Patient comes in to discuss MRI results. Reports pain 2/10. Allergies No Known Allergies Allergy (Verified 01/21/24 09:54) HPI Comments Details: Mr. Calderon is very pleasant 58 years old gentleman who came to my office today with complains on pain in the mid level lumbar spine. He reports the pain in the lower back with radiation into bilateral hips and bilateral groins. He had bilateral total hip replacement in the past. He reports that his pain is aggravated with him walking. He reports that he needs to take a stop several times if he needs to pass few 100 yd distance. He reports that walking in the supermarket leaning on the cart help his pain his pain and allows him to walk for the longer distance. He was sent to MRI and results of the MRI dictated as below. He has spinal changes which might indicate on ligamentum flavum thickening and effacement of the thecal sac at L4-5 level. Therefore I offered this patient MILD procedure today. I explained to him that this is the only changes corresponding to his physical exam I can not see today as a cause of his pain. The physical exam dictated as below and remarkably non revealing of any pathology of the joints or pathology of the vertebral bodies or discs. SLR is also negative, my considerations see as below. [facility], [facility] Medical History (Updated 12/10/23 @ 15:35 by Conor Bravo MD) Osteoarthritis of right hip Atypical chest pain COPD (chronic obstructive pulmonary disease) Tobacco abuse disorder Hyperlipidemia HTN (hypertension) Surgical History (Updated 10/13/23 @ 20:21 by Yair Hood PA-C) Status post total hip replacement, right Family History Mother Diabetes Hypertension Heart attack Father Hypertension Heart attack Social History (Updated 12/03/23 @ 14:13 by VIRGILIO Davis) Household Members Other:: self Housing: House Are you a primary vp care management to a significant other at home: No Do you presently have visiting nurse or other home services: No Alcohol intake: never Patient Tobacco Use Status: Former Tobacco user Tobacco use type: Cigar Cigarettes Per Day: 2 Years Smoked: 25 e-Cigarette/Vaping Use: Never Used Second Hand Smoke Exposure: No Review of Systems Const All systems reviewed & are unremarkable except as noted in HPI and below ENT Reports Normal hearing present Neuro Reports Normal hearing present, Denies Abnormal speech present, Denies confusion and Denies Sensory deficit (Neuro) Psych Denies confusion Physical Exam Vital Signs: Last Vital Signs Pulse 91 01/21/24 09:53 Resp 16 01/21/24 09:53 BP 140/90 H 01/21/24 09:53 Pulse Ox 96 01/21/24 09:53 Oxygen Delivery Method Room Air 01/21/24 09:53 BMI result Body Mass Index 38.7 Const General: no acute distress and well developed; No confusion Nutritional Appearance: obese Orientation/consciousness: patient oriented x3 and No confusion Eyes General: appearance normal, both eyes and all related structures Pupils: Equal, round and reactive pupils present EOM: EOMs intact bilaterally Neck Neck: Yes full ROM Chest Chest palpation & inspection: normal inspection of the chest Resp Effort & Inspection: normal respiratory effort, able to speak in complete sentences, normal respiratory pattern, no audible wheezes and no cough Cardio Jugular venous distension: no JVD GI Inspection: Yes normal to inspection Back/Spine/Pelvis Other: On physical exam this patient presents as a puzzle. All the tests I tried to do for him are negative on physical exam. He reports no tenderness on palpation in paraspinal or spinal regions of the lumbar spine no tenderness on palpation in the projection of the sacral bone. He has no tenderness on palpation in the flanks. SLR is negative bilaterally. Alfredo test is negative bilaterally. Fourteen finger test is negative bilaterally. Stinchfield test is negative bilaterally. Flexing forward and flexing backwards are rather unremarkable and he does not report pain with those maneuvers. Neuro General: patient oriented x3, gait normal and No confusion Cranial nerves: Yes CN's II-XII intact bilaterally, Yes Equal, round and reactive pupils present, Yes Normal hearing present and Yes Ability to bilaterally elevate shoulders present Speech: No Abnormal speech present Gait exam (Neuro): Normal gait present Motor exam (neuro): 5/5 motor strength present throughout Sensory Exam: No Sensory deficit (Neuro) Extrem General: No pedal edema Psych Speech and movement: Normal speech and movement present Affect: normal affect Attitude: cooperative Thought process: Normal thought process present Thought content: Normal thought content present Insight: Good insight present (Psych) Judgement: Good judgement present (Psych) Results Reviewed Results Reviewed: MR LUMBAR SPINE WITHOUT CONTRAST FINDINGS: Normal lumbar lordosis is preserved. Trace anterolisthesis at L4-L5. Mild chronic height loss and anterior wedging of the T11 vertebral body with maintained lumbar vertebral body heights. There is no suspicious osseous lesion. Multilevel disc desiccation with preserved disc height. There is diffuse epidural lipomatosis. Level by level detail as follows: L1-L2: Epidural lipomatosis contributes to moderate thecal sac effacement. Patent neural foramina. L2-L3: Epidural lipomatosis contributes to moderate to severe thecal sac effacement. Small left foraminal disc protrusion mildly narrows the left neural foramen. Widely patent right neural foramen. L3-L4: Epidural lipomatosis moderately effaces the thecal sac. Shallow annular disc bulge and mild facet arthrosis mildly narrow the neural foramina. L4-L5: Epidural lipomatosis, annular disc bulge with left foraminal annular fissure, and advanced bilateral facet arthrosis with ligamentum flavum thickening and small right facet joint effusion. Moderate thecal sac effacement. Moderate right and mild to moderate left neural foraminal stenosis with slight impingement upon the exiting/extraforaminal right L4 nerve root. L5-S1: Annular disc bulge, bilateral facet arthrosis, and epidural lipomatosis causing severe effacement/compression of the thecal sac. Moderate bilateral neural foraminal stenosis with slight impingement upon the exiting/extraforaminal L5 nerve roots. The conus medullaris terminates at the level of L1-L2. The distal spinal cord is normal in appearance. No epidural fluid collection, hematoma, or mass. No significant abnormalities of the paraspinal musculature. Limited evaluation of the intra-abdominal structures without significant abnormalities. The abdominal aorta is of normal contour and caliber. Susceptibility artifact from right hip arthroplasty. Osseous fusion across the right and possibly also left sacroiliac joints. MR/MR lumbar spine wo con IMPRESSION: 1. Diffuse epidural lipomatosis in conjunction with mild spondylosis contribute to multilevel thecal sac effacement, most pronounced at L5-S1 where there is severe effacement and compression of the thecal sac. Moderate to severe L2-L3 and moderate L4-L5 the thecal sac effacement. 2. At L4-L5, there is moderate right and mild to moderate left neural foraminal stenosis with slight impingement upon the exiting/extraforaminal right L4 nerve root. 3. At L5-S1, there is moderate bilateral neural foraminal stenosis with slight impingement upon the exiting/extraforaminal L5 nerve roots. 4. Osseous fusion across the right and possibly also left sacroiliac joint Assessment & Plan Assessment & Plan (1) Chronic pain syndrome: Code(s): G89.4 - Chronic pain syndrome Category: Medical (2) Spondylosis, lumbar, with myelopathy: Code(s): M47.16 - Other spondylosis with myelopathy, lumbar region Category: Medical (3) Spondylolisthesis, lumbar region: Code(s): M43.16 - Spondylolisthesis, lumbar region Category: Medical Plan After examining his MRI I am firmly convinced that he has symptoms of the neurogenic claudication secondary to spinal canal stenosis and ligamentum flavum hypertrophy at L4-5 level. I offered this patient to perform MILD procedure, the risks and benefits were explained to the patient. I also explained to him that the nature of this pain is not very revealing and if the mild procedure will not be effective for him we will start to talk about neuromodulation to help his pain. [facility] Nevro probably is the 1st would be to try. Patient Instructions: I here by testify that I spent 40 minutes in conversation with this patient as well as planning his care and organizing this note. Marj Calderon recreation officer who is fluent in certified forest examiner helped us to maintain the conversation today. Coding Level of Care Code Est Pt Level 5 (65855) Diagnoses Chronic pain syndrome G89.4 Spondylosis, lumbar, with myelopathy M47.16 Spondylolisthesis, lumbar region M43.16
[2024-01-21 09:53] VITALS: BP 140/90; PULSE 91; RESP 16; O2SAT 96; BMI 38.7
== END 2024-01-21 10:39 | disposition home or self-care (01) ==
PROVIDERS: PCP Internal Medicine Geriatric Medicine; Visit Provider Anesthesiology
DX: G89.4 Chronic pain syndrome (principal); M47.16 Other spondylosis with myelopathy, lumbar region; M43.16 Spondylolisthesis, lumbar region
CPT/HCPCS: 99215

== ENCOUNTER → 2024-01-21 09:08 | Outpatient (BNVA) | payer MEDICAID, SELFPAY | PROVIDERS: PCP Internal Medicine Geriatric Medicine; Visit Provider Anesthesiology | DX: M47.16 Other spondylosis with myelopathy, lumbar region (principal); M43.16 Spondylolisthesis, lumbar region; G89.4 Chronic pain syndrome; Z96.643 Presence of artificial hip joint, bilateral | CPT/HCPCS: 99212 ==

== ENCOUNTER 2024-02-11 09:34 | Outpatient (AMB) | payer MEDICAID, SELFPAY ==
[2024-02-11 09:42] VITALS: BP 138/84; PULSE 92; O2SAT 94; BMI 39.7
--- NOTE | 2024-02-11 09:42 | A.OFFVIS_ITS ---
Vital Signs 02/11/24 09:42 Height 5 ft 8 in Weight 261 lb 3.964 oz BMI 39.7 BP 138/84 Blood Pressure Location Rt brachial Position Sitting Pulse 92 Pulse Source Doppler Pulse Oximetry (%) 94 Oxygen Delivery Method Room Air Intake Visit Reasons: COPD Commercial Baking Teacher Required: Yes Commercial Baking Teacher Name: Radha Arellano Reyes Allergies No Known Allergies Allergy (Verified 02/11/24 09:46) HPI HPI COPD: Details: 58-year-old gentleman, recent 60 pack-year smoker, with underlying diastolic dysfunction, now followed for moderate COPD, pulmonary component to dyspnea, and pulmonary nodules. He has been using Advair, Incruse, and albuterol MDI previous with good control of his symptoms until approximately 1 months prior when he started having more wheezing, dyspnea on exertion, however also orthopnea and lower extremity edema. He denies any acute exacerbations. His follow-up CT chest showed stable 8 mm pulmonary nodule. [facility] Medical History (Updated 02/11/24 @ 10:06 by Russ Quiñonez MD) Osteoarthritis of right hip Atypical chest pain COPD (chronic obstructive pulmonary disease) Tobacco abuse disorder Hyperlipidemia HTN (hypertension) Surgical History (Updated 10/13/23 @ 20:21 by Yair Hood PA-C) Status post total hip replacement, right Family History Mother Diabetes Hypertension Heart attack Father Hypertension Heart attack Social History (Updated 02/11/24 @ 09:47 by Radha Mcdowell [facility]) Household Members Other:: self Housing: House Are you a primary transitional care manager to a significant other at home: No Do you presently have visiting nurse or other home services: No Alcohol intake: never Patient Tobacco Use Status: Current someday Tobacco user Tobacco use type: Cigarette and Cigar Cigarettes Per Day: 2 Years Smoked: 25 e-Cigarette/Vaping Use: Never Used Second Hand Smoke Exposure: No Review of Systems Const Denies daytime sleepiness, Denies excessive sweating, Denies fatigue, Denies fever(s), Denies lethargy, Denies malaise, Denies night sweats, Denies snoring and Denies weight loss Eyes Denies blurry vision and Denies itchy eyes ENT Denies nasal congestion, Denies post nasal drip, Denies sinus pain, Denies sinus pressure and Denies other ( Thrush) Card Denies chest pain, Reports pedal edema, Denies dyspnea, Reports dyspnea on exertion, Reports orthopnea and Denies paroxysmal nocturnal dyspnea Resp Reports cough, Denies hemoptysis, Denies excessive phlegm production, Denies dyspnea, Reports dyspnea on exertion, Denies snoring and Denies wheezing GI Denies abdominal pain and Denies heartburn Musc Denies myalgias, Denies arthralgias and Denies joint swelling Skin/Breast Denies rash Neuro Denies memory loss and Denies seizure-like activity Psych Denies abnormal sleep pattern, Denies anxiety and Denies memory loss Endo Denies excessive sweating, Denies fatigue and Denies heat intolerance Jorden/Lymph Denies easy bruising Aller/Immun Denies itchy eyes, Denies seasonal rhinorrhea and Denies wheezing Physical Exam Vital Signs: Last Vital Signs Pulse 92 02/11/24 09:42 BP 138/84 02/11/24 09:42 Pulse Ox 94 02/11/24 09:42 Oxygen Delivery Method Room Air 02/11/24 09:42 BMI result Body Mass Index 39.7 Const General: no acute distress and alert Nutritional Appearance: obese Orientation/consciousness: Other orientation findings ( oriented) HEENT Head: Yes atraumatic Eyes General: appearance normal, both eyes and all related structures Sclerae: sclerae normal EOM: EOMs intact bilaterally Neck Neck: Yes supple Lymphatic: no lymphadenopathy noted Resp Effort & Inspection: normal respiratory effort and no use of accessory muscles Auscultation: crackles (Mild bibasilar) Cardio Rate: regular rate Rhythm: regular rhythm Heart sounds: no gallops, no murmurs and no rubs Skin General skin exam: other ( warm) Extrem General: No clubbing, No cyanosis and Yes edema (2+ bilateral) Assessment & Plan Assessment & Plan (1) COPD (chronic obstructive pulmonary disease): Code(s): J44.9 - Chronic obstructive pulmonary disease, unspecified Category: Medical (2) Pulmonary nodules: Code(s): R91.8 - Other nonspecific abnormal finding of lung field Category: Medical (3) Dyspnea on exertion: Code(s): R06.09 - Other forms of dyspnea Category: Medical (4) Orthopnea: Code(s): R06.01 - Orthopnea Category: Medical (5) Lower extremity edema: Code(s): R60.0 - Localized edema Category: Medical Plan Pulmonary component well controlled on current regimen of Incruse, Advair, and albuterol MDI. Underlying previously stable 8 mm pulmonary nodule with follow-up CT chest pending for July of 2024. Now with worsening orthopnea and lower extremity edema on the background of known at least grade 1 diastolic congestive heart failure. Will start on empir ic diuresis with Lasix 40 mg daily and reassess symptoms in 1 week. Medications: New furosemide 40 mg PO QAM 7 tabs 0RF umeclidinium 62.5 mcg/actuation (Incruse Ellipta) 1 inh inhalation QAM 30 ea 6RF Changed From fluticasone propion-salmeterol 230-21 mcg/actuation (Advair HFA) 2 puffs inhalation BID To fluticasone propion-salmeterol 230-21 mcg/actuation (Advair HFA) 2 puffs inhalation BID 30 days 12 grams 6RF Refilled albuterol sulfate 90 mcg/actuation 1 inh inhalation QID PRN 8.5 grams 6RF shortness of breath or wheezing Discontinued levofloxacin Discontinued Reason: Doctor's Order 750 mg PO DAILY 7 tabs 0RF Coding Level of Care Code Est Pt Level 4 (67150) Complex EM visit Add On G2211 Diagnoses COPD (chronic obstructive pulmonary disease) J44.9 Pulmonary nodules R91.8 Dyspnea on exertion R06.09 Orthopnea R06.01 Lower extremity edema R60.0
== END 2024-02-11 10:04 | disposition home or self-care (01) ==
PROVIDERS: PCP Internal Medicine Geriatric Medicine; Visit Provider Internal Medicine Pulmonary Disease
DX: J44.9 Chronic obstructive pulmonary disease, unspecified (principal); R91.8 Other nonspecific abnormal finding of lung field; R06.09 Other forms of dyspnea; R06.01 Orthopnea; R60.0 Localized edema
CPT/HCPCS: 99214; G2211

== ENCOUNTER → 2024-02-11 09:34 | Outpatient (BNVA) | payer MEDICAID, SELFPAY | PROVIDERS: PCP Internal Medicine Geriatric Medicine; Visit Provider Internal Medicine Pulmonary Disease | DX: J44.9 Chronic obstructive pulmonary disease, unspecified (principal); R91.8 Other nonspecific abnormal finding of lung field; R06.09 Other forms of dyspnea; R06.01 Orthopnea; R60.0 Localized edema | CPT/HCPCS: 99212 ==

== ENCOUNTER 2024-03-15 12:57 | Outpatient (AMB) | payer MEDICAID, SELFPAY ==
--- NOTE | 2024-03-15 13:01 | A.OFFVIS_ITS ---
Vital Signs 03/15/24 13:07 Height 5 ft 8 in Weight 263 lb 4 oz BMI 40.0 BP 132/82 Blood Pressure Location Lt brachial Position Sitting Respiration 16 Pulse 95 Pulse Source Pulse Oximeter Pulse Oximetry (%) 99 Oxygen Delivery Method Room Air Intake Visit Reasons: Right Leg Pain Intake Note: Patient comes in for right leg pain. Reports pain 09/03. Allergies No Known Allergies Allergy (Verified 02/11/24 09:46) HPI Comments Details: Mr. Calderon is very pleasant 58 years old gentleman who came to my office today with complains on pain in the mid level lumbar spine. He was investigated in the past and at L4-5 level we found ligamentum flavum thickening and I offered him mild procedure. The patient returns to the office to discuss risks and benefits of the mild procedure. Risks of headache, bleeding, infection, peripheral nerve damage, spinal cord damage were discussed with the patient, those risks are very rare however can not be 100% excluded. Patient expressed understanding. He wants to proceed with L4-5 mild procedure. I will schedule him accordingly. Prior: He reports the pain in the lower back with radiation into bilateral hips and bilateral groins. He had bilateral total hip replacement in the past. He reports that his pain is aggravated with him walking. He reports that he needs to take a stop several times if he needs to pass few 100 yd distance. He reports that walking in the supermarket leaning on the cart help his pain his pain and allows him to walk for the longer distance. He was sent to MRI and results of the MRI dictated as below. He has spinal changes which might indicate on ligamentum flavum thickening and effacement of the thecal sac at L4- 5 level. Therefore I offered this patient MILD procedure today. I explained to him that this is the only changes corresponding to his physical exam I can not see today as a cause of his pain. The physical exam dictated as below and remarkably non revealing of any pathology of the joints or pathology of the vertebral bodies or discs. SLR is also negative. [facility] Medical History (Updated 03/15/24 @ 15:19 by Conor Bravo MD) Osteoarthritis of right hip Atypical chest pain COPD (chronic obstructive pulmonary disease) Tobacco abuse disorder Hyperlipidemia HTN (hypertension) Surgical History (Updated 10/13/23 @ 20:21 by Yair Hood PA-C) Status post total hip replacement, right Family History Mother Diabetes Hypertension Heart attack Father Hypertension Heart attack Social History (Updated 02/11/24 @ 09:47 by VIRGILIO Davis) Household Members Other:: self Housing: House Are you a primary cardiac care unit nurse to a significant other at home: No Do you presently have visiting nurse or other home services: No Alcohol intake: never Patient Tobacco Use Status: Current someday Tobacco user Tobacco use type: Cigarette and Cigar Cigarettes Per Day: 2 Years Smoked: 25 e-Cigarette/Vaping Use: Never Used Second Hand Smoke Exposure: No Review of Systems Const All systems reviewed & are unremarkable except as noted in HPI and below ENT Reports Normal hearing present Neuro Reports Normal hearing present, Denies Abnormal speech present, Denies confusion and Denies Sensory deficit (Neuro) Psych Denies confusion Physical Exam Const General: no acute distress and well developed; No confusion Nutritional Appearance: obese Orientation/consciousness: patient oriented x3 and No confusion Eyes General: appearance normal, both eyes and all related structures Pupils: Equal, round and reactive pupils present EOM: EOMs intact bilaterally Neck Neck: Yes full ROM Chest Chest palpation & inspection: normal inspection of the chest Resp Effort & Inspection: normal respiratory effort, able to speak in complete sentences, normal respiratory pattern, no audible wheezes and no cough Cardio Jugular venous distension: no JVD GI Inspection: Yes normal to inspection Back/Spine/Pelvis Other: On physical exam this patient presents as a puzzle. All the tests I tried to do for him are negative on physical exam. He reports no tenderness on palpation in paraspinal or spinal regions of the lumbar spine no tenderness on palpation in the projection of the sacral bone. He has no tenderness on palpation in the flanks. SLR is negative bilaterally. Alfredo test is negative bilaterally. Fourteen finger test is negative bilaterally. Stinchfield test is negative bilaterally. Flexing forward and flexing backwards are rather unremarkable and he does not report pain with those maneuvers. Neuro General: patient oriented x3, gait normal and No confusion Cranial nerves: Yes CN's II-XII intact bilaterally, Yes Equal, round and reactive pupils present, Yes Normal hearing present and Yes Ability to bilaterally elevate shoulders present Speech: No Abnormal speech present Gait exam (Neuro): Normal gait present Motor exam (neuro): 5/5 motor strength present throughout Sensory Exam: No Sensory deficit (Neuro) Extrem General: No pedal edema Psych Speech and movement: Normal speech and movement present Affect: normal affect Attitude: cooperative Thought process: Normal thought process present Thought content: Normal thought content present Insight: Good insight present (Psych) Judgement: Good judgement present (Psych) Results Reviewed Results Reviewed: MR LUMBAR SPINE WITHOUT CONTRAST FINDINGS: Normal lumbar lordosis is preserved. Trace anterolisthesis at L4-L5. Mild chronic height loss and anterior wedging of the T11 vertebral body with maintained lumbar vertebral body heights. There is no suspicious osseous lesion. Multilevel disc desiccation with preserved disc height. There is diffuse epidural lipomatosis. Level by level detail as follows: L1-L2: Epidural lipomatosis contributes to moderate thecal sac effacement. Patent neural foramina. L2-L3: Epidural lipomatosis contributes to moderate to severe thecal sac effacement. Small left foraminal disc protrusion mildly narrows the left neural foramen. Widely patent right neural foramen. L3-L4: Epidural lipomatosis moderately effaces the thecal sac. Shallow annular disc bulge and mild facet arthrosis mildly narrow the neural foramina. L4-L5: Epidural lipomatosis, annular disc bulge with left foraminal annular fissure, and advanced bilateral facet arthrosis with ligamentum flavum thickening and small right facet joint effusion. Moderate thecal sac effacement. Moderate right and mild to moderate left neural foraminal stenosis with slight impingement upon the exiting/extraforaminal right L4 nerve root. L5-S1: Annular disc bulge, bilateral facet arthrosis, and epidural lipomatosis causing severe effacement/compression of the thecal sac. Moderate bilateral neural foraminal stenosis with slight impingement upon the exiting/extraforaminal L5 nerve roots. The conus medullaris terminates at the level of L1-L2. The distal spinal cord is normal in appearance. No epidural fluid collection, hematoma, or mass. No significant abnormalities of the paraspinal musculature. Limited evaluation of the intra-abdominal structures without significant abnormalities. The abdominal aorta is of normal contour and caliber. Susceptibility artifact from right hip arthroplasty. Osseous fusion across the right and possibly also left sacroiliac joints. MR/MR lumbar spine wo con IMPRESSION: 1. Diffuse epidural lipomatosis in conjunction with mild spondylosis contribute to multilevel thecal sac effacement, most pronounced at L5-S1 where there is severe effacement and compression of the thecal sac. Moderate to severe L2-L3 and moderate L4-L5 the thecal sac effacement. 2. At L4-L5, there is moderate right and mild to moderate left neural foraminal stenosis with slight impingement upon the exiting/extraforaminal right L4 nerve root. 3. At L5-S1, there is moderate bilateral neural foraminal stenosis with slight impingement upon the exiting/extraforaminal L5 nerve roots. 4. Osseous fusion across the right and possibly also left sacroiliac joint Assessment & Plan Assessment & Plan (1) Chronic pain syndrome: Code(s): G89.4 - Chronic pain syndrome Category: Medical (2) Spondylosis, lumbar, with myelopathy: Code(s): M47.16 - Other spondylosis with myelopathy, lumbar region Category: Medical (3) Spondylolisthesis, lumbar region: Code(s): M43.16 - Spondylolisthesis, lumbar region Category: Medical (4) Spinal stenosis at L4-L5 level: Code(s): M48.061 - Spinal stenosis, lumbar region without neurogenic claudication Category: Medical (5) Neurogenic claudication due to lumbar spinal stenosis: Code(s): M48.062 - Spinal stenosis, lumbar region with neurogenic claudication Category: Medical Plan After examining his MRI I am firmly convinced that he has symptoms of the neurogenic claudication secondary to spinal canal stenosis and ligamentum flavum hypertrophy at L4-5 level. I offered this patient to perform MILD procedure, the risks and benefits were explained to the patient see as above. I also explained to him that the nature of this pain is not very revealing and if the mild procedure will not be effective for him we will start to talk about neuromodulation to help his pain. SCS Nevro probably is the 1st would be to try. Patient Instructions: I hereby testify that I spent 38 minutes in conversation with this patient as well as planning his care and organizing this note. molding technician Michaela help me to interpret this conversation in [employer]. Coding Level of Care Code Est Pt Level 4 (29157) Diagnoses Chronic pain syndrome G89.4 Spondylosis, lumbar, with myelopathy M47.16 Spondylolisthesis, lumbar region M43.16 Spinal stenosis at L4-L5 level M48.061 Neurogenic claudication due to lumbar spinal stenosis M48.062
[2024-03-15 13:07] VITALS: BP 132/82; PULSE 95; RESP 16; O2SAT 99; BMI 40.0
== END 2024-03-15 13:17 | disposition home or self-care (01) ==
PROVIDERS: PCP Internal Medicine Geriatric Medicine; Visit Provider Anesthesiology
DX: G89.4 Chronic pain syndrome (principal); M47.16 Other spondylosis with myelopathy, lumbar region; M43.16 Spondylolisthesis, lumbar region; M48.061 Spinal stenosis, lumbar region without neurogenic claudication; M48.062 Spinal stenosis, lumbar region with neurogenic claudication
CPT/HCPCS: 99214

== ENCOUNTER → 2024-03-15 12:57 | Outpatient (BNVA) | payer MEDICAID, SELFPAY | PROVIDERS: PCP Internal Medicine Geriatric Medicine; Visit Provider Anesthesiology | DX: M47.16 Other spondylosis with myelopathy, lumbar region (principal); M43.16 Spondylolisthesis, lumbar region; M48.062 Spinal stenosis, lumbar region with neurogenic claudication; M48.061 Spinal stenosis, lumbar region without neurogenic claudication; G89.4 Chronic pain syndrome | CPT/HCPCS: 99212 ==

== ENCOUNTER 2024-03-16 09:04 | Outpatient (REF) | payer MEDICAID, SELFPAY ==
--- NOTE | ~2024-03-16 | XR_ITS ---
EXAMINATION: XR CHEST CLINICAL INFORMATION: Dyspnea COMPARISON: Chest radiograph from 03/17/2023 TECHNIQUE: 2 views of the chest were obtained. FINDINGS: Chronic interstitial lung markings. Emphysematous changes. Slight bronchial thickening which can be seen in setting of infectious/inflammatory etiology. No pneumothorax. Trachea is midline. No pneumothorax. Trachea is midline. Cardiac arrest also a stable. No large pleural effusion. Question of remote mildly displaced fracture of the right lateral seventh rib versus angulation during image acquisition. Soft tissues are unremarkable. XR/XR chest 2V IMPRESSION: 1. Chronic interstitial lung markings. 2. Emphysematous changes. 3. Slight bronchial thickening which can be seen in setting of infectious/inflammatory etiology. 4. Question of remote mildly displaced fracture of the right lateral seventh rib versus angulation during image acquisition.
== END 2024-03-16 09:05 | disposition home or self-care (01) ==
LOC: HO.XRAY 09:04
PROVIDERS: PCP Internal Medicine Geriatric Medicine; Visit Provider Internal Medicine Pulmonary Disease
DX: R06.09 Other forms of dyspnea (principal); R06.01 Orthopnea; J44.9 Chronic obstructive pulmonary disease, unspecified; R91.8 Other nonspecific abnormal finding of lung field; K21.9 Gastro-esophageal reflux disease without esophagitis
CPT/HCPCS: 71046; 99212

== ENCOUNTER 2024-03-16 09:04 | Outpatient (AMB) | payer MEDICAID, SELFPAY ==
[2024-03-16 09:10] VITALS: BP 143/82; PULSE 110; O2SAT 93; BMI 40.4
--- NOTE | 2024-03-16 09:10 | A.OFFVIS_ITS ---
Vital Signs 03/16/24 09:10 Height 5 ft 8 in Weight 265 lb 10.512 oz BMI 40.4 BP 143/82 H Blood Pressure Location Rt brachial Position Sitting Pulse 110 H Pulse Source Doppler Pulse Oximetry (%) 93 Oxygen Delivery Method Room Air Intake Visit Reasons: COPD/cough SOB Information Systems Specialist Required: Yes Information Systems Specialist Name: Radha Adan Chambers Allergies No Known Allergies Allergy (Verified 03/16/24 09:15) HPI HPI COPD/cough SOB: Details: 58-year-old gentleman, recent 60 pack-year smoker, with underlying diastolic dysfunction, now followed for moderate COPD, pulmonary component to dyspnea, and pulmonary nodules. He has been using Advair, Incruse, and albuterol MDI previous with good control of his symptoms. He denies acute exacerbations. He continues to complain of chronic nonproductive cough and lower extremity edema. Patient also complains of acid reflux. His follow-up CT chest showed stable 8 mm pulmonary nodule. [facility] Medical History (Updated 03/16/24 @ 09:42 by Russ Quiñonez MD) Osteoarthritis of right hip Atypical chest pain COPD (chronic obstructive pulmonary disease) Tobacco abuse disorder Hyperlipidemia HTN (hypertension) Surgical History (Updated 10/13/23 @ 20:21 by Yair Hood PA-C) Status post total hip replacement, right Family History Mother Diabetes Hypertension Heart attack Father Hypertension Heart attack Social History (Updated 02/11/24 @ 09:47 by Radha Mcdowell Guzman) Household Members Other:: self Housing: House Are you a primary career services assistant to a significant other at home: No Do you presently have visiting nurse or other home services: No Alcohol intake: never Patient Tobacco Use Status: Current someday Tobacco user Tobacco use type: Cigarette and Cigar Cigarettes Per Day: 2 Years Smoked: 25 e-Cigarette/Vaping Use: Never Used Second Hand Smoke Exposure: No Review of Systems Const Denies daytime sleepiness, Denies excessive sweating, Denies fatigue, Denies fever(s), Denies lethargy, Denies malaise, Denies night sweats, Denies snoring and Denies weight loss Eyes Denies blurry vision and Denies itchy eyes ENT Denies nasal congestion, Denies post nasal drip, Denies sinus pain, Denies sinus pressure and Denies other ( Thrush) Card Denies chest pain, Reports pedal edema, Denies dyspnea, Reports dyspnea on exertion, Denies orthopnea and Denies paroxysmal nocturnal dyspnea Resp Reports cough, Denies hemoptysis, Denies excessive phlegm production, Denies dyspnea, Reports dyspnea on exertion, Denies snoring and Denies wheezing GI Denies abdominal pain and Reports heartburn Musc Denies myalgias, Denies arthralgias and Denies joint swelling Skin/Breast Denies rash Neuro Denies memory loss and Denies seizure-like activity Psych Denies abnormal sleep pattern, Denies anxiety and Denies memory loss Endo Denies excessive sweating, Denies fatigue and Denies heat intolerance Jorden/Lymph Denies easy bruising Aller/Immun Denies itchy eyes, Denies seasonal rhinorrhea and Denies wheezing Physical Exam Vital Signs: Last Vital Signs Pulse 110 H 03/16/24 09:10 BP 143/82 H 03/16/24 09:10 Pulse Ox 93 03/16/24 09:10 Oxygen Delivery Method Room Air 03/16/24 09:10 BMI result Body Mass Index 40.4 Const General: no acute distress and alert Nutritional Appearance: obese Orientation/consciousness: Other orientation findings ( oriented) HEENT Head: Yes atraumatic Eyes General: appearance normal, both eyes and all related structures Sclerae: sclerae normal EOM: EOMs intact bilaterally Neck Neck: Yes supple Lymphatic: no lymphadenopathy noted Resp Effort & Inspection: normal respiratory effort and no use of accessory muscles Auscultation: crackles (Bibasilar) Cardio Rate: regular rate Rhythm: regular rhythm Heart sounds: no gallops, no murmurs and no rubs Skin General skin exam: other ( warm) Extrem General: No clubbing, No cyanosis and Yes edema (2+ bilateral) Assessment & Plan Assessment & Plan (1) Orthopnea: Code(s): R06.01 - Orthopnea Category: Medical Plan: Still significant orthopnea, continue with diuretic and increase Lasix to 80 mg for 3 days, then continue with 40 mg daily. (2) Dyspnea on exertion: Code(s): R06.09 - Other forms of dyspnea Category: Medical Plan: Improving with diuresis, however still significantly symptomatic. (3) COPD (chronic obstructive pulmonary disease): Code(s): J44.9 - Chronic obstructive pulmonary disease, unspecified Category: Medical Plan: Well controlled on baseline regimen of Advair, Incruse, and albuterol MDI. (4) Pulmonary nodules: Code(s): R91.8 - Other nonspecific abnormal finding of lung field Category: Medical Plan: Follow-up CT chest is pending for July of 2024. Underlying previously stable 8 mm nodule. (5) GERD (gastroesophageal reflux disease): Code(s): K21.9 - Gastro-esophageal reflux disease without esophagitis Category: Medical Plan: Now has significant acid reflux component, will start on PPI. Orders: Orders XR chest 2V Today R06.09 - Other forms of dyspnea Medications: New fluticasone propion-salmeterol 500-50 mcg/dose (Advair Diskus) 1 inh inhalation BID 60 ea 6RF R06.09 - Other forms of dyspnea omeprazole 40 mg PO DAILY 30 caps 6RF Refilled furosemide 40 mg PO QAM 30 tabs 6RF R06.09 - Other forms of dyspnea Discontinued fluticasone propion-salmeterol 230-21 mcg/actuation (Advair HFA) Discontinued Reason: Doctor's Order 2 puffs inhalation BID 30 days 12 grams 6RF Coding Level of Care Code Est Pt Level 4 (88438) Complex EM visit Add On G2211 Diagnoses Orthopnea R06.01 Dyspnea on exertion R06.09 COPD (chronic obstructive pulmonary disease) J44.9 Pulmonary nodules R91.8 GERD (gastroesophageal reflux disease) K21.9
== END 2024-03-16 09:38 | disposition home or self-care (01) ==
PROVIDERS: PCP Internal Medicine Geriatric Medicine; Visit Provider Internal Medicine Pulmonary Disease
DX: R06.01 Orthopnea (principal); R06.09 Other forms of dyspnea; J44.9 Chronic obstructive pulmonary disease, unspecified; R91.8 Other nonspecific abnormal finding of lung field; K21.9 Gastro-esophageal reflux disease without esophagitis
CPT/HCPCS: 99214

== ENCOUNTER 2024-04-05 17:41 | Outpatient (REF) | payer MEDICAID, SELFPAY | END 2024-04-05 17:42 | disposition home or self-care (01) | LOC: HO.HHCLNP 17:41 | PROVIDERS: Visit Provider Nurse Practitioner Primary Care | DX: J02.9 Acute pharyngitis, unspecified (principal) | CPT/HCPCS: 87070 ==

== ENCOUNTER 2024-04-21 09:44 | Outpatient (AMB) | payer MEDICAID, SELFPAY ==
[2024-04-21 09:46] VITALS: BP 140/80; PULSE 104; O2SAT 95; BMI 40.4
--- NOTE | 2024-04-21 09:46 | MHC.OFFVIS ---
Vital Signs 04/21/24 09:46 Height 5 ft 8 in Weight 265 lb 10.512 oz BMI 40.4 BP 140/80 H Blood Pressure Location Rt brachial Position Sitting Pulse 104 H Pulse Source Doppler Pulse Oximetry (%) 95 Oxygen Delivery Method Room Air Intake Visit Reasons: COPD Pattern Illustrator Required: Yes Pattern Illustrator Name: Radha Adan Chambers Allergies No Known Allergies Allergy (Verified 04/21/24 09:52) HPI HPI COPD: Details: 58-year-old gentleman, recent 60 pack-year smoker, with underlying diastolic dysfunction, now followed for moderate COPD, pulmonary component to dyspnea, and pulmonary nodules. He has been using Advair, Incruse, and albuterol MDI with reasonable control of his symptoms. He denies acute exacerbations. For after the last office visit patient was tried on increased diuretic dose with improvement in his lower extremity edema and dyspnea exertion while on the increase Lasix dose and worsening of his symptoms when going back down to his usual 40 mg daily. [facility] Medical History (Updated 03/16/24 @ 09:42 by Russ Quiñonez MD) Atypical chest pain COPD (chronic obstructive pulmonary disease) Tobacco abuse disorder Hyperlipidemia HTN (hypertension) Osteoarthritis of right hip Surgical History (Updated 03/31/24 @ 12:50 by Mari Albrecht RN) Status post total hip replacement, right Family History Mother Diabetes Hypertension Heart attack Father Hypertension Heart attack Social History (Updated 02/11/24 @ 09:47 by VIRGILIO Davis) Household Members Other:: self Housing: House Are you a primary healthcare consulting manager to a significant other at home: No Do you presently have visiting nurse or other home services: No Alcohol intake: never Patient Tobacco Use Status: Current someday Tobacco user Tobacco use type: Cigarette and Cigar Cigarettes Per Day: 2 Years Smoked: 25 e-Cigarette/Vaping Use: Never Used Second Hand Smoke Exposure: No Review of Systems Const Denies daytime sleepiness, Denies excessive sweating, Denies fatigue, Denies fever(s), Denies lethargy, Denies malaise, Denies night sweats, Denies snoring and Denies weight loss Eyes Denies blurry vision and Denies itchy eyes ENT Denies nasal congestion, Denies post nasal drip, Denies sinus pain, Denies sinus pressure and Denies other ( Thrush) Card Denies chest pain, Reports pedal edema, Denies dyspnea, Reports dyspnea on exertion, Reports orthopnea and Reports paroxysmal nocturnal dyspnea Resp Denies cough, Denies hemoptysis, Denies excessive phlegm production, Denies dyspnea, Reports dyspnea on exertion, Denies snoring and Denies wheezing GI Denies abdominal pain and Denies heartburn Musc Denies myalgias, Denies arthralgias and Denies joint swelling Skin/Breast Denies rash Neuro Denies memory loss and Denies seizure-like activity Psych Denies abnormal sleep pattern, Denies anxiety and Denies memory loss Endo Denies excessive sweating, Denies fatigue and Denies heat intolerance Jorden/Lymph Denies easy bruising Aller/Immun Denies itchy eyes, Denies seasonal rhinorrhea and Denies wheezing Physical Exam Vital Signs: Last Vital Signs Pulse 104 H 04/21/24 09:46 BP 140/80 H 04/21/24 09:46 Pulse Ox 95 04/21/24 09:46 Oxygen Delivery Method Room Air 04/21/24 09:46 BMI result Body Mass Index 40.4 Const General: no acute distress and alert Nutritional Appearance: not obese Orientation/consciousness: Other orientation findings ( oriented) HEENT Head: Yes atraumatic Eyes General: appearance normal, both eyes and all related structures Sclerae: sclerae normal EOM: EOMs intact bilaterally Neck Neck: Yes supple Lymphatic: no lymphadenopathy noted Resp Effort & Inspection: normal respiratory effort and no use of accessory muscles Auscultation: clear to auscultation bilaterally Cardio Rate: regular rate Rhythm: regular rhythm Heart sounds: no gallops, no murmurs and no rubs Skin General skin exam: other ( warm) Extrem General: No clubbing, No cyanosis and Yes edema (2+ bilateral) Assessment & Plan Assessment & Plan (1) Dyspnea on exertion: Code(s): R06.09 - Other forms of dyspnea Category: Medical Plan: With worsening dyspnea on exertion/orthopnea/lower extremity edema on Lasix 40 mg daily and significant improvement on 80 mg does. Will increase Lasix to 80 mg daily. (2) COPD (chronic obstructive pulmonary disease): Code(s): J44.9 - Chronic obstructive pulmonary disease, unspecified Category: Medical Plan: Baseline controlled current regimen of Advair, Incruse, and albuterol MDI. Continue current regimen. (3) Pulmonary nodules: Code(s): R91.8 - Other nonspecific abnormal finding of lung field Category: Medical Plan: Underlying mm pulmonary nodule. Follow-up CT chest is pending for July of 2024. Medications: New furosemide 80 mg PO QAM 30 tabs 6RF Discontinued furosemide Discontinued Reason: Doctor's Order 40 mg PO QAM 30 tabs 6RF R06.09 - Other forms of dyspnea Coding Level of Care Code Est Pt Level 4 (90716) Complex EM visit Add On G2211 Diagnoses Dyspnea on exertion R06.09 COPD (chronic obstructive pulmonary disease) J44.9 Pulmonary nodules R91.8
== END 2024-04-21 10:03 | disposition home or self-care (01) ==
PROVIDERS: PCP Internal Medicine Geriatric Medicine; Visit Provider Internal Medicine Pulmonary Disease
DX: R06.09 Other forms of dyspnea (principal); J44.9 Chronic obstructive pulmonary disease, unspecified; R91.8 Other nonspecific abnormal finding of lung field
CPT/HCPCS: 99214

== ENCOUNTER → 2024-04-21 09:44 | Outpatient (BNVA) | payer MEDICAID, SELFPAY | PROVIDERS: PCP Internal Medicine Geriatric Medicine; Visit Provider Internal Medicine Pulmonary Disease | DX: J44.9 Chronic obstructive pulmonary disease, unspecified (principal); R06.09 Other forms of dyspnea; R91.8 Other nonspecific abnormal finding of lung field; Z87.891 Personal history of nicotine dependence; Z79.899 Other long term (current) drug therapy | CPT/HCPCS: 99212 ==

== ENCOUNTER 2024-04-27 08:25 | Outpatient (AMB) | payer MEDICAID, SELFPAY ==
[2024-04-27 09:48] VITALS: BP 124/80; PULSE 94; O2SAT 92; BMI 38.0
--- NOTE | 2024-04-27 09:48 | A.OFFVIS_ITS ---
Vital Signs 04/27/24 09:48 Height 5 ft 8 in Weight 250 lb BMI 38.0 BP 124/80 Blood Pressure Location Lt brachial Position Sitting Pulse 94 Pulse Source Pulse Oximeter Pulse Oximetry (%) 92 Oxygen Delivery Method Room Air Intake Visit Reasons: F/U Discuss other options after deinial Allergies No Known Allergies Allergy (Verified 04/21/24 09:52) HPI Comments Details: Cameron presents the office today for follow-up lower back pain Previously was planning on mild but this procedure was declined by insurance. He arrives today to discuss further treatment options. Pain today is rated as a 2/10. Has completed physical therapy and has been walking more. Pain improving, he is interested in medication for his pain as opposed to interventional management. Does not feel the pain is strong enough to warrant surgical procedure such as spinal cord stimulator Denies any changes in his medications, allergies for past medical history Prior visit with Dr. Bravo: Mr. Calderon is very pleasant 58 years old gentleman who came to my office today with complains on pain in the mid level lumbar spine. He was investigated in the past and at L4-5 level we found ligamentum flavum thickening and I offered him mild procedure. The patient returns to the office to discuss risks and benefits of the mild procedure. Risks of headache, bleeding, infection, peripheral nerve damage, spinal cord damage were discussed with the patient, those risks are very rare however can not be 100% excluded. Patient expressed understanding. He wants to proceed with L4-5 mild procedure. I will schedule him accordingly. Prior: He reports the pain in the lower back with radiation into bilateral hips and bilateral groins. He had bilateral total hip replacement in the past. He reports that his pain is aggravated with him walking. He reports that he needs to take a stop several times if he needs to pass few 100 yd distance. He reports that walking in the supermarket leaning on the cart help his pain his pain and allows him to walk for the longer distance. He was sent to MRI and results of the MRI dictated as below. He has spinal changes which might indicate on ligamentum flavum thickening and effacement of the thecal sac at L4- 5 level. Therefore I offered this patient MILD procedure today. I explained to him that this is the only changes corresponding to his physical exam I can not see today as a cause of his pain. The physical exam dictated as below and remarkably non revealing of any pathology of the joints or pathology of the vertebral bodies or discs. SLR is also negative. [facility] Medical History (Updated 04/23/24 @ 14:51 by Russ Quiñonez MD) Atypical chest pain COPD (chronic obstructive pulmonary disease) Tobacco abuse disorder Hyperlipidemia HTN (hypertension) Osteoarthritis of right hip Surgical History (Updated 03/31/24 @ 12:50 by Mari Albrecht RN) Status post total hip replacement, right Family History Mother Diabetes Hypertension Heart attack Father Hypertension Heart attack Social History (Updated 02/11/24 @ 09:47 by VIRGILIO Davis) Household Members Other:: self Housing: House Are you a primary customer care team coach to a significant other at home: No Do you presently have visiting nurse or other home services: No Alcohol intake: never Patient Tobacco Use Status: Current someday Tobacco user Tobacco use type: Cigarette and Cigar Cigarettes Per Day: 2 Years Smoked: 25 e-Cigarette/Vaping Use: Never Used Second Hand Smoke Exposure: No Review of Systems Const All systems reviewed & are unremarkable except as noted in HPI and below Physical Exam Vital Signs: Last Vital Signs Pulse 94 04/27/24 09:48 BP 124/80 04/27/24 09:48 Pulse Ox 92 04/27/24 09:48 Oxygen Delivery Method Room Air 04/27/24 09:48 BMI result Body Mass Index 38.0 General: awake, alert, oriented. Answers questions appropriately. Fully engaged in examination. Skin: warm, dry, intact HEENT: Normocephalic. Hearing intact. Cardiac: External chest normal in appearance. Respiratory: No cough, audible wheezing or stridor. Abdomen: without gross distension. MS: No obvious swelling or deformities. Able to stand on bilateral tiptoes and bilateral heels.? Able to transition from sit to stand unassisted. Ambulates with bilaterally normal heel strike and toe off SLR negative bilaterally Neurological: Oriented to person, place, time and situation. Thought process intact. No gait abnormalities appreciated. Psychiatric: Appropriate mood and affect. Good judgment and insight. Results Reviewed Results Reviewed: 12/22/2023 MR LUMBAR SPINE WITHOUT CONTRAST Normal lumbar lordosis is preserved. Trace anterolisthesis at L4-L5. Mild chronic height loss and anterior wedging of the T11 vertebral body with maintained lumbar vertebral body heights. There is no suspicious osseous lesion. Multilevel disc desiccation with preserved disc height. There is diffuse epidural lipomatosis. Level by level detail as follows: L1-L2: Epidural lipomatosis contributes to moderate thecal sac effacement. Patent neural foramina. L2-L3: Epidural lipomatosis contributes to moderate to severe thecal sac effacement. Small left foraminal disc protrusion mildly narrows the left neural foramen. Widely patent right neural foramen. L3-L4: Epidural lipomatosis moderately effaces the thecal sac. Shallow annular disc bulge and mild facet arthrosis mildly narrow the neural foramina. L4-L5: Epidural lipomatosis, annular disc bulge with left foraminal annular fissure, and advanced bilateral facet arthrosis with ligamentum flavum thickening and small right facet joint effusion. Moderate thecal sac effacement. Moderate right and mild to moderate left neural foraminal stenosis with slight impingement upon the exiting/extraforaminal right L4 nerve root. L5-S1: Annular disc bulge, bilateral facet arthrosis, and epidural lipomatosis causing severe effacement/compression of the thecal sac. Moderate bilateral neural foraminal stenosis with slight impingement upon the exiting/extraforaminal L5 nerve roots. The conus medullaris terminates at the level of L1-L2. The distal spinal cord is normal in appearance. No epidural fluid collection, hematoma, or mass. No significant abnormalities of the paraspinal musculature. Limited evaluation of the intra-abdominal structures without significant abnormalities. The abdominal aorta is of normal contour and caliber. Susceptibility artifact from right hip arthroplasty. Osseous fusion across the right and possibly also left sacroiliac joints. IMPRESSION: 1. Diffuse epidural lipomatosis in conjunction with mild spondylosis contribute to multilevel thecal sac effacement, most pronounced at L5-S1 where there is severe effacement and compression of the thecal sac. Moderate to severe L2-L3 and moderate L4-L5 the thecal sac effacement. 2. At L4-L5, there is moderate right and mild to moderate left neural foraminal stenosis with slight impingement upon the exiting/extraforaminal right L4 nerve root. 3. At L5-S1, there is moderate bilateral neural foraminal stenosis with slight impingement upon the exiting/extraforaminal L5 nerve roots. 4. Osseous fusion across the right and possibly also left sacroiliac joint Assessment & Plan Assessment & Plan (1) Chronic pain syndrome: Code(s): G89.4 - Chronic pain syndrome Category: Medical (2) Spondylosis, lumbar, with myelopathy: Code(s): M47.16 - Other spondylosis with myelopathy, lumbar region Category: Medical (3) Spondylolisthesis, lumbar region: Code(s): M43.16 - Spondylolisthesis, lumbar region Category: Medical (4) Spinal stenosis at L4-L5 level: Code(s): M48.061 - Spinal stenosis, lumbar region without neurogenic claudication Category: Medical (5) Neurogenic claudication due to lumbar spinal stenosis: Code(s): M48.062 - Spinal stenosis, lumbar region with neurogenic claudication Category: Medical Plan Cameron presented to the office today for follow-up chronic back pain. MRI was reviewed with patient at last visit, determined the patient has symptoms of neurogenic claudication secondary to spinal canal stenosis and ligamentum flavum hypertrophy at L4-5 Mild was denied by insurance. Discussed options for treatment including diagnostic interventional testing, epidural steroid injections, peripheral nerve stimulation with Sprint, RFA and more permanent neuromodulation. Patient would like to try muscle relaxers to help with the pain. Given it is slowly improving he does not want to proceed with neuromodulation at this time. New prescription for methocarbamol 500 mg p.o. b.i.d. as needed. Patient advised on cautions for use. If no improvement with muscle relaxers will plan for Nevro SCS trial under fluoroscopy guidance but sedation. Patient is aware that this would require mental health evaluation, he does not have any mental health providers. Pamphlet for [employer] point was given. All questions and concerns were answered, patient agrees with the plan. Follow up in 1 month, sooner if needed Medications: New methocarbamol No driving while taking this medication. 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
== END 2024-04-27 10:01 | disposition home or self-care (01) ==
PROVIDERS: PCP Internal Medicine Geriatric Medicine; Visit Provider Registered Nurse Emergency
DX: G89.4 Chronic pain syndrome (principal); M47.16 Other spondylosis with myelopathy, lumbar region; M43.16 Spondylolisthesis, lumbar region; M48.061 Spinal stenosis, lumbar region without neurogenic claudication; M48.062 Spinal stenosis, lumbar region with neurogenic claudication
CPT/HCPCS: 99213

== ENCOUNTER → 2024-04-27 08:25 | Outpatient (BNVA) | payer MEDICAID, SELFPAY | PROVIDERS: PCP Internal Medicine Geriatric Medicine; Visit Provider Registered Nurse Emergency | DX: M47.16 Other spondylosis with myelopathy, lumbar region (principal); M43.16 Spondylolisthesis, lumbar region; M48.062 Spinal stenosis, lumbar region with neurogenic claudication; G89.4 Chronic pain syndrome | CPT/HCPCS: 99212 ==

== ENCOUNTER → 2024-04-28 10:05 | Outpatient (BNVA) | payer MEDICAID, SELFPAY | PROVIDERS: PCP Internal Medicine Geriatric Medicine; Visit Provider Surgery ==

== ENCOUNTER 2024-04-30 10:56 | Outpatient (REF) | payer MEDICAID, SELFPAY ==
[2024-04-30 14:00] LABS: B Type Natriuretic Peptide < 10 pg/mL (<100)
[2024-04-30 14:08] LABS: Alanine Aminotransferase 37 U/L (0-40); Albumin Level 4.1 g/dL (3.5-5.0); Alkaline Phosphatase 136 U/L (39-117); Anion Gap 11 (12-20); Aspartate Amino Transferase 33 U/L (5-37); Bilirubin Total 0.7 mg/dL (0.0-1.0); Blood Urea Nitrogen 14 mg/dL (9-16); Calcium 9.4 mg/dL (8.4-10.2); Carbon Dioxide 34 mmol/L (22-29); Chloride 97 mmol/L (96-108); Estimated Glomerular Filt Rate 58; Glucose Random 136 mg/dL (60-115); Potassium 3.3 mmol/L (3.3-5.1); Sodium 139 mmol/L (135-145); Total Protein 7.8 g/dL (6.5-8.0)
[2024-04-30 14:33] LABS: Estimated Average Glucose 140 mg/dL; Hemoglobin A1c % 6.5 % (<6.0)
== END 2024-04-30 10:57 | disposition home or self-care (01) ==
LOC: HO.HHCL 10:56
PROVIDERS: Visit Provider Nurse Practitioner Primary Care
DX: R60.0 Localized edema (principal); Z79.899 Other long term (current) drug therapy
CPT/HCPCS: 36415; 80053; 83036; 83880

== ENCOUNTER 2024-05-13 08:38 | Outpatient (AMB) | payer MEDICAID, SELFPAY ==
[2024-05-13 08:47] VITALS: BP 148/82; PULSE 107; O2SAT 93; BMI 40.4
--- NOTE | 2024-05-13 08:47 | MHC.OFFVIS ---
Vital Signs 05/13/24 08:47 Height 5 ft 8 in Weight 265 lb 10.512 oz BMI 40.4 BP 148/82 H Blood Pressure Location Rt brachial Position Sitting Pulse 107 H Pulse Source Doppler Pulse Oximetry (%) 93 Oxygen Delivery Method Room Air Intake Visit Reasons: COPD Regulatory Compliance Engineer Required: Yes Regulatory Compliance Engineer Name: Radha Adan Chambers Allergies No Known Allergies Allergy (Verified 05/13/24 08:55) HPI HPI COPD: Details: 58-year-old gentleman, recent 60 pack-year smoker, with underlying diastolic dysfunction, now followed for moderate COPD, pulmonary component to dyspnea, and pulmonary nodules. He has been using Advair, Incruse, and albuterol MDI with reasonable control of his symptoms. He denies acute exacerbations. He has been using Lasix at 80 mg daily with good control of his orthopnea. [facility] Medical History (Updated 04/23/24 @ 14:51 by Russ Quiñonez MD) Atypical chest pain COPD (chronic obstructive pulmonary disease) Tobacco abuse disorder Hyperlipidemia HTN (hypertension) Osteoarthritis of right hip Surgical History (Updated 03/31/24 @ 12:50 by Mari Albrecht RN) Status post total hip replacement, right Family History Mother Diabetes Hypertension Heart attack Father Hypertension Heart attack Social History (Updated 04/28/24 @ 10:24 by Montserrat Arellano CMA) Household Members Other:: self Housing: House Are you a primary medicare insurance specialist to a significant other at home: No Do you presently have visiting nurse or other home services: No Alcohol intake: never Patient Tobacco Use Status: Current someday Tobacco user Tobacco use type: Cigarette and Cigar Cigarettes Per Day: 10 Years Smoked: 25 e-Cigarette/Vaping Use: Never Used Second Hand Smoke Exposure: No Review of Systems Const Denies daytime sleepiness, Denies excessive sweating, Denies fatigue, Denies fever(s), Denies lethargy, Denies malaise, Denies night sweats, Denies snoring and Denies weight loss Eyes Denies blurry vision and Denies itchy eyes ENT Denies nasal congestion, Denies post nasal drip, Denies sinus pain, Denies sinus pressure and Denies other ( Thrush) Card Denies chest pain, Denies pedal edema, Denies dyspnea, Denies orthopnea and Denies paroxysmal nocturnal dyspnea Resp Denies cough, Denies hemoptysis, Denies excessive phlegm production, Denies dyspnea, Denies snoring and Denies wheezing GI Denies abdominal pain and Denies heartburn Musc Denies myalgias, Denies arthralgias and Denies joint swelling Skin/Breast Denies rash Neuro Denies memory loss and Denies seizure-like activity Psych Denies abnormal sleep pattern, Denies anxiety and Denies memory loss Endo Denies excessive sweating, Denies fatigue and Denies heat intolerance Jorden/Lymph Denies easy bruising Aller/Immun Denies itchy eyes, Denies seasonal rhinorrhea and Denies wheezing Physical Exam Vital Signs: Last Vital Signs Pulse 107 H 05/13/24 08:47 BP 148/82 H 05/13/24 08:47 Pulse Ox 93 05/13/24 08:47 Oxygen Delivery Method Room Air 05/13/24 08:47 BMI result Body Mass Index 40.4 Const General: no acute distress and alert Nutritional Appearance: obese Orientation/consciousness: Other orientation findings ( oriented) HEENT Head: Yes atraumatic Eyes General: appearance normal, both eyes and all related structures Sclerae: sclerae normal EOM: EOMs intact bilaterally Neck Neck: Yes supple Lymphatic: no lymphadenopathy noted Resp Effort & Inspection: normal respiratory effort and no use of accessory muscles Auscultation: clear to auscultation bilaterally Cardio Rate: regular rate Rhythm: regular rhythm Heart sounds: no gallops, no murmurs and no rubs Skin General skin exam: other ( warm) Extrem General: No clubbing, No cyanosis and No edema Assessment & Plan Assessment & Plan (1) Orthopnea: Code(s): R06.01 - Orthopnea Category: Medical Plan: Well controlled on current regimen of Lasix 80 mg daily. Continue current regimen. (2) COPD (chronic obstructive pulmonary disease): Code(s): J44.9 - Chronic obstructive pulmonary disease, unspecified Category: Medical Plan: Well controlled on current regimen of Advair, Incruse, and albuterol MDI. Continue current regimen (3) Pulmonary nodules: Code(s): R91.8 - Other nonspecific abnormal finding of lung field Category: Medical Plan: 8 mm right lower lobe nodule unchanged on previous scan, will obtain follow-up CT scan in July of 2024. Coding Level of Care Code Est Pt Level 4 (03761) Diagnoses Orthopnea R06.01 COPD (chronic obstructive pulmonary disease) J44.9 Pulmonary nodules R91.8
== END 2024-05-13 09:12 | disposition home or self-care (01) ==
PROVIDERS: PCP Internal Medicine Geriatric Medicine; Referring Provider Internal Medicine Geriatric Medicine; Visit Provider Internal Medicine Pulmonary Disease
DX: R06.01 Orthopnea (principal); J44.9 Chronic obstructive pulmonary disease, unspecified; R91.8 Other nonspecific abnormal finding of lung field
CPT/HCPCS: 99214

== ENCOUNTER → 2024-05-13 08:38 | Outpatient (BNVA) | payer MEDICAID, SELFPAY | PROVIDERS: PCP Internal Medicine Geriatric Medicine; Visit Provider Internal Medicine Pulmonary Disease | DX: Z01.811 Encounter for preprocedural respiratory examination (principal); J44.9 Chronic obstructive pulmonary disease, unspecified; R06.01 Orthopnea; R91.8 Other nonspecific abnormal finding of lung field | CPT/HCPCS: 99212 ==

== ENCOUNTER 2024-05-17 09:21 | Outpatient (AMB) | payer MEDICAID, SELFPAY ==
[2024-05-17 09:21] VITALS: BMI 40.1
--- NOTE | 2024-05-17 09:21 | A.OFFVIS_ITS ---
Vital Signs 05/17/24 09:21 Height 5 ft 8 in Weight 264 lb BMI 40.1 Intake Visit Reasons: Umbilical Hernia Intake Note: This patient presents for an assessment for umbilical hernia. Pt c/o; reports has bowel movements x3 daily, bulge. Ibm Websphere Portal Developer Required: Yes Ibm Websphere Portal Developer Language: Event Security Officer Services: Ibm Websphere Portal Developer Present Ibm Websphere Portal Developer Name: Barbi Information Interpreted: non-clinical & clinical Accompanied by: Self / Same As Patient Allergies No Known Allergies Allergy (Verified 05/17/24 09:23) Medication List - Last Reconciled 05/17/24 by Cesar Humphries MD acetaminophen 650 mg (2 x 325 mg) PO Q6H PRN 30 days albuterol sulfate 90 mcg/actuation 1 inh inhalation QID PRN aspirin 325 mg PO BID@0100,1300 42 days atorvastatin 20 mg PO DAILY azithromycin For 250 mg dose pack: take 500 mg today (day 1), then 250 mg for 4 days (days 2-5) PO celecoxib 200 mg PO BID 30 days docusate sodium 100 mg PO BID 30 days fluticasone propion-salmeterol 500-50 mcg/dose (Advair Diskus) 1 inh inhalation BID furosemide 80 mg PO QAM lisinopril 10 mg PO QAM methocarbamol 500 mg PO BID PRN nabumetone 500 mg PO BID nicotine (polacrilex) 4 mg PO Q4H PRN omeprazole 40 mg PO DAILY oxycodone 5 mg PO BEDTIME PRN 15 days umeclidinium 62.5 mcg/actuation (Incruse Ellipta) 1 inh inhalation QAM walker Folding Front wheeled walker HPI HPI Umbilical Hernia: Details: 58-year-old male referred for an umbilical hernia. He has noticed this ?lump? on his umbilicus for more than a year now. He says that this has been getting increasingly bigger the past few months. He describes some discomfort but no significant pain. He denies GI complaints He does have morbid obesity. He has a known diabetic. Hemoglobin A1c was 6.5 on review. He is a smoker as well and says he smokes half a pack a day. [facility] Medical History (Updated 05/17/24 @ 09:39 by Cesar Humphries MD) Morbid obesity Umbilical hernia, incarcerated Atypical chest pain COPD (chronic obstructive pulmonary disease) Tobacco abuse disorder Hyperlipidemia HTN (hypertension) Osteoarthritis of right hip Surgical History Status post total hip replacement, right Family History Mother Diabetes Hypertension Heart attack Father Hypertension Heart attack Social History Household Members Other:: self Housing: House Are you a primary customer care assistant to a significant other at home: No Do you presently have visiting nurse or other home services: No Alcohol intake: never Patient Tobacco Use Status: Current someday Tobacco user Tobacco use type: Cigarette and Cigar Cigarettes Per Day: 10 Years Smoked: 25 e-Cigarette/Vaping Use: Never Used Second Hand Smoke Exposure: No Review of Systems Const Denies chills and Denies fever(s) Card Denies chest pain, Denies dyspnea and Reports dyspnea on exertion Resp Reports cough, Denies dyspnea and Reports dyspnea on exertion GI Denies hematochezia and Denies change in bowel habits Denies hematuria and Denies difficulty urinating Musc Denies back pain and Denies limited range of motion Neuro Denies focal weakness and Denies convulsions Psych Denies depression and Denies mood swings Physical Exam Vital Signs: BMI result Body Mass Index 40.1 Const Other: Morbidly obese General: comfortable and no acute distress Orientation/consciousness: patient oriented x3 Neck Neck: Yes no lymphadenopathy Resp Auscultation: clear to auscultation bilaterally Cardio Rhythm: regular rhythm GI Other: Umbilical hernia, nonreducible, about 2.5, nontender cm in diameter Palpation (GI): Soft to palpation, nontender and no guarding Neuro General: patient oriented x3 Assessment & Plan Assessment & Plan (1) Umbilical hernia, incarcerated: Code(s): K42.0 - Umbilical hernia with obstruction, without gangrene Category: Medical Plan: He has what appears to be a chronically incarcerated umbilical hernia. This is nontender. This is likely to contain omental fat. I had a long discussion with him about the technique of umbilical hernia repair with possible mesh. I reviewed the risks including but not limited to bleeding, infections, bowel injury, recurrence, respiratory failure, as well as the benefits and alternatives. He has diabetes, he is a smoker, and is morbid obese so he notes that his perioperative risks are little higher His A1c was 6.5 He wants to proceed. We will set him up for a preadmission testing as well. Coding Level of Care Code New Pt Level 3 (29766) Diagnoses Umbilical hernia, incarcerated K42.0
== END 2024-05-17 09:40 | disposition home or self-care (01) ==
LOC: HO.HGS 09:21
PROVIDERS: PCP Internal Medicine Geriatric Medicine; Visit Provider Surgery
DX: K42.0 Umbilical hernia with obstruction, without gangrene (principal)
CPT/HCPCS: 99203

== ENCOUNTER → 2024-05-17 09:21 | Outpatient (BNVA) | payer MEDICAID, SELFPAY | PROVIDERS: PCP Internal Medicine Geriatric Medicine; Visit Provider Surgery | DX: K42.0 Umbilical hernia with obstruction, without gangrene (principal) | CPT/HCPCS: 99202 ==

== ENCOUNTER 2024-06-03 09:08 | Outpatient (AMB) | payer MEDICAID, SELFPAY ==
[2024-06-03 09:11] VITALS: BP 132/80; PULSE 112; O2SAT 92; BMI 41.1
--- NOTE | 2024-06-03 09:11 | MHC.OFFVIS ---
Vital Signs 06/03/24 09:11 Height 5 ft 8 in Weight 270 lb 1.06 oz BMI 41.1 BP 132/80 Blood Pressure Location Rt radial Position Sitting Pulse 112 H Pulse Source Doppler Pulse Oximetry (%) 92 Oxygen Delivery Method Room Air Intake Visit Reasons: COPD Allergies No Known Allergies Allergy (Verified 05/17/24 09:23) HPI HPI COPD: Details: 58-year-old gentleman, recent 60 pack-year smoker, with underlying diastolic dysfunction, now followed for moderate COPD, pulmonary component to dyspnea, and pulmonary nodules. He has been using Advair, Incruse, and albuterol MDI with reasonable control of his symptoms. He denies acute exacerbations. He has been using Lasix at 80 mg daily with good control of his orthopnea. He does continue to complain of nonproductive cough, worse when laying down, though he denies acid reflux symptoms. [facility] Medical History (Updated 06/03/24 @ 09:32 by Russ Quiñonez MD) DJD (degenerative joint disease) Back pain Morbid obesity Umbilical hernia, incarcerated Atypical chest pain COPD (chronic obstructive pulmonary disease) Tobacco abuse disorder Hyperlipidemia HTN (hypertension) Osteoarthritis of right hip Surgical History Status post total hip replacement, right Family History Mother Diabetes Hypertension Heart attack Father Hypertension Heart attack Social History Household Members Other:: self Housing: House Are you a primary medicare insurance specialist to a significant other at home: No Do you presently have visiting nurse or other home services: No Alcohol intake: never Patient Tobacco Use Status: Current someday Tobacco user Tobacco use type: Cigarette and Cigar Cigarettes Per Day: 10 Years Smoked: 25 e-Cigarette/Vaping Use: Never Used Second Hand Smoke Exposure: No Review of Systems Const Denies daytime sleepiness, Denies excessive sweating, Denies fatigue, Denies fever(s), Denies lethargy, Denies malaise, Denies night sweats, Denies snoring and Denies weight loss Eyes Denies blurry vision and Denies itchy eyes ENT Denies nasal congestion, Denies post nasal drip, Denies sinus pain, Denies sinus pressure and Denies other ( Thrush) Card Denies chest pain, Denies pedal edema, Denies dyspnea, Denies orthopnea and Denies paroxysmal nocturnal dyspnea Resp Reports cough, Denies hemoptysis, Denies excessive phlegm production, Denies dyspnea, Denies snoring and Denies wheezing GI Denies abdominal pain and Denies heartburn Musc Denies myalgias, Denies arthralgias and Denies joint swelling Skin/Breast Denies rash Neuro Denies memory loss and Denies seizure-like activity Psych Denies abnormal sleep pattern, Denies anxiety and Denies memory loss Endo Denies excessive sweating, Denies fatigue and Denies heat intolerance Jorden/Lymph Denies easy bruising Aller/Immun Denies itchy eyes, Denies seasonal rhinorrhea and Denies wheezing Physical Exam Vital Signs: Last Vital Signs Pulse 112 H 06/03/24 09:11 BP 132/80 06/03/24 09:11 Pulse Ox 92 06/03/24 09:11 Oxygen Delivery Method Room Air 06/03/24 09:11 BMI result Body Mass Index 41.1 Const General: no acute distress and alert Nutritional Appearance: not obese Orientation/consciousness: Other orientation findings ( oriented) HEENT Head: Yes atraumatic Eyes General: appearance normal, both eyes and all related structures Sclerae: sclerae normal EOM: EOMs intact bilaterally Neck Neck: Yes supple Lymphatic: no lymphadenopathy noted Resp Effort & Inspection: normal respiratory effort and no use of accessory muscles Auscultation: clear to auscultation bilaterally Cardio Rate: regular rate Rhythm: regular rhythm Heart sounds: no gallops, no murmurs and no rubs Skin General skin exam: other ( warm) Extrem General: No clubbing, No cyanosis and No edema Assessment & Plan Assessment & Plan (1) COPD (chronic obstructive pulmonary disease): Code(s): J44.9 - Chronic obstructive pulmonary disease, unspecified Category: Medical Plan: Well controlled on current regimen of Advair, Incruse, and albuterol MDI/nebs. Continue current regimen. (2) Pulmonary nodules: Code(s): R91.8 - Other nonspecific abnormal finding of lung field Category: Medical Plan: Follow-up CT chest is pending for July of 2024. (3) Environmental allergies: Code(s): Z91.09 - Other allergy status, other than to drugs and biological substances Category: Medical Plan: Will obtain RAST panel for further evaluation. (4) Orthopnea: Code(s): R06.01 - Orthopnea Category: Medical Plan: Well controlled on current diuretic regimen of 80 mg of furosemide every morning. Continue current regimen. Orders: Orders Resp Allergy Profile Region I Today Z91.09 - Other allergy status, other than to drugs and biological substances Coding Level of Care Code Est Pt Level 4 (51595) Complex EM visit Add On G2211 Diagnoses COPD (chronic obstructive pulmonary disease) J44.9 Pulmonary nodules R91.8 Environmental allergies Z91.09 Orthopnea R06.01
== END 2024-06-03 09:29 | disposition home or self-care (01) ==
PROVIDERS: PCP Internal Medicine Geriatric Medicine; Visit Provider Internal Medicine Pulmonary Disease
DX: J44.9 Chronic obstructive pulmonary disease, unspecified (principal); R91.8 Other nonspecific abnormal finding of lung field; Z91.09 Other allergy status, other than to drugs and biological substances; R06.01 Orthopnea
CPT/HCPCS: 99214

== ENCOUNTER 2024-06-03 09:08 | Outpatient (REF) | payer MEDICAID, SELFPAY ==
[2024-06-04 20:57] LABS: Class Alternaria alternata 0; Class Aspergillus fumigatus 0; Class Bermuda Grass 0/1; Class Birch 0/1; Class Cat Dander 0; Class Cladosporium herbarum 0; Class Cockroach 2; Class Common Ragweed 0/1; Class Cottonwood 0/1; Class Derm. pterony 0/1; Class Dermatophagoides farinae 1; Class Dog Dander 0; Class Elm 0/1; Class Maple Box Elder 0/1; Class Mountain Cedar 0/1; Class Mouse Urine Protein 0; Class Mugwort 0; Class Oak 0/1; Class Penicillium crysogenum 0; Class Rough Pigweed 0; Class Sheep Sorrel 0/1; Class Sycamore 0/1; Class Timothy Grass 1; Class Walnut Tree 1; Class White Ash 0/1; Class White Mulberry 0/1; D001 IgE D pteronyssinus 0.15 kU/L; D002 - IgE D farinae 0.66 kU/L; E001 - IgE Cat Dander <0.10 kU/L; E005 - IgE Dog Dander <0.10 kU/L; E072-IgE Mouse Urine <0.10 kU/L; G002 IgE Bermuda Grass 0.26 kU/L; G006 - IgE Timothy Grass 0.36 kU/L; I006-IgE Cockroach, German 1.36 kU/L; Immunoglobulin E 1664 kU/L (<OR=114); M001 IgE Penicillium chrysogen <0.10 kU/L; M002 - IgE Cladosporium herbar <0.10 kU/L; M003 - IgE Aspergillus fumigat <0.10 kU/L; M006 - IgE Alternaria alternat <0.10 kU/L; T001 IgE Maple/Box Elder 0.14 kU/L; T006 - IgE Cedar, Mountain 0.17 kU/L; T007 - IgE Oak, White 0.19 kU/L; T008 IgE Elm, American 0.17 kU/L; T010 - IgE Walnut 0.52 kU/L; T011 - IgE Maple Leaf Sycamore 0.23 kU/L; T014 - IgE Cottonwood 0.18 kU/L; T015 - IgE Ash, White 0.24 kU/L; T070 - IgE White Mulberry 0.11 kU/L; W001 - IgE Ragweed, Short 0.22 kU/L; W006 - IgE Mugwort <0.10 kU/L; W014 IgE Pigweed, Common <0.10 kU/L; W018 IgE Sheep Sorrel 0.11 kU/L
== END 2024-06-03 09:09 | disposition home or self-care (01) ==
LOC: HO.LAB 09:08
PROVIDERS: PCP Internal Medicine Geriatric Medicine; Visit Provider Internal Medicine Pulmonary Disease
DX: J44.9 Chronic obstructive pulmonary disease, unspecified (principal); Z91.09 Other allergy status, other than to drugs and biological substances; R91.8 Other nonspecific abnormal finding of lung field; R06.01 Orthopnea
CPT/HCPCS: 36415; 82785; 86003; 99212

== ENCOUNTER → 2024-06-03 11:18 | Outpatient (BNV) | payer MEDICAID, SELFPAY | PROVIDERS: PCP Internal Medicine Geriatric Medicine; Visit Provider Internal Medicine Cardiovascular Disease | DX: Z01.818 Encounter for other preprocedural examination (principal) | CPT/HCPCS: 93010 ==

== ENCOUNTER 2024-06-09 09:03 | Outpatient (AMB) | payer MEDICAID, SELFPAY ==
--- NOTE | 2024-06-09 09:05 | A.OFFVIS_ITS ---
Vital Signs 06/09/24 09:11 Height 5 ft 8 in Weight 269 lb 2 oz BMI 40.9 BP 133/75 Blood Pressure Location Lt brachial Position Sitting Pulse 105 H Pulse Source Pulse Oximeter Pulse Oximetry (%) 98 Oxygen Delivery Method Room Air Intake Visit Reasons: Medication F/U gaby from 05/26 Intake Note: Pain today 5/10 Partner Manager Required: No Accompanied by: Self / Same As Patient Allergies No Known Allergies Allergy (Verified 06/09/24 09:12) HPI Comments Details: Cameron presents the office today for follow-up lower back pain Previously was planning on mild but this procedure was declined by insurance. He arrives today to discuss further treatment options. Pain today is rated as a 5/10. He would like to discuss medications with me. Last time he was prescribed methocarbamol 500 mg b.i.d. and he reports that methocarbamol helps his pain. He denies side effects. I decided to increase his methocarbamol to 750 mg b.i.d.. He agreed to try. Risks and benefits were explained if he will have new side effects he needs to report to us and we will adjust the dose back to 500 mg. He also recommended to take NSAIDs. He also recommended to quit smoking. For the purpose of the smoking cessation in relation to pain management nicotine is the compound which instigate pain sensation. It produces local tissue hypoxia by constricting local blood vessels and capillary. All of this was explained to the patient. He can try to quit smoking ?cold turkey ?or using some antidepressant medications. Patient expressed understanding. We also discussed today possibility of helping his pain with Nevro spinal cord stimulator. Nevro brochure was given to the patient. Patient agreed to go for psychological evaluation to go for Nevro trial. He continues home exercise program although he does not feel much of the improvement. Has completed physical therapy. Prior: Mr. Calderon is very pleasant 58 years old gentleman who came to my office today with complains on pain in the mid level lumbar spine. He was investigated in the past and at L4-5 level we found ligamentum flavum thickening and I offered him mild procedure. The patient returns to the office to discuss risks and benefits of the mild procedure. Risks of headache, bleeding, infection, peripheral nerve damage, spinal cord damage were discussed with the patient, those risks are very rare however can not be 100% excluded. Patient expressed understanding. He wants to proceed with L4-5 mild procedure. I will schedule him accordingly. He reports the pain in the lower back with radiation into bilateral hips and bilateral groins. He had bilateral total hip replacement in the past. He reports that his pain is aggravated with him walking. He reports that he needs to take a stop several times if he needs to pass few 100 yd distance. He reports that walking in the supermarket leaning on the cart help his pain his pain and allows him to walk for the longer distance. He was sent to MRI and results of the MRI dictated as below. He has spinal changes which might indicate on ligamentum flavum thickening and effacement of the thecal sac at L4- 5 level. Mild was offered. [facility] Medical History (Updated 06/10/24 @ 07:43 by Conor Bravo MD) DJD (degenerative joint disease) Back pain Morbid obesity Umbilical hernia, incarcerated Atypical chest pain COPD (chronic obstructive pulmonary disease) Tobacco abuse disorder Hyperlipidemia HTN (hypertension) Osteoarthritis of right hip Surgical History (Updated 06/03/24 @ 10:33 by Mari Albrecht RN) Status post total hip replacement, right Family History Mother Diabetes Hypertension Heart attack Father Hypertension Heart attack Social History Household Members Other:: rents a room in a house Housing: House Are you a primary day care director to a significant other at home: No Do you presently have visiting nurse or other home services: No Alcohol intake: never Patient Tobacco Use Status: Current everyday Tobacco user Tobacco use type: Cigarette Cigarettes Per Day: 5 Years Smoked: 25 e-Cigarette/Vaping Use: Never Used Second Hand Smoke Exposure: No Review of Systems Const All systems reviewed & are unremarkable except as noted in HPI and below ENT Reports Normal hearing present Neuro Reports Normal hearing present, Denies Abnormal speech present, Denies confusion and Denies Sensory deficit (Neuro) Psych Denies confusion Physical Exam Vital Signs: Last Vital Signs Pulse 105 H 06/09/24 09:11 BP 133/75 06/09/24 09:11 Pulse Ox 98 06/09/24 09:11 Oxygen Delivery Method Room Air 06/09/24 09:11 BMI result Body Mass Index 40.9 Const General: no acute distress and well developed; No confusion Nutritional Appearance: obese Orientation/consciousness: patient oriented x3 and No confusion Eyes General: appearance normal, both eyes and all related structures Pupils: Equal, round and reactive pupils present EOM: EOMs intact bilaterally Neck Neck: Yes full ROM Chest Chest palpation & inspection: normal inspection of the chest Resp Effort & Inspection: normal respiratory effort, able to speak in complete sentences, normal respiratory pattern, no audible wheezes and no cough Cardio Jugular venous distension: no JVD GI Inspection: Yes normal to inspection Back/Spine/Pelvis Other: He reports no tenderness on palpation in paraspinal or spinal regions of the lumbar spine no tenderness on palpation in the projection of the sacral bone. He has no tenderness on palpation in the flanks. SLR is negative bilaterally. Alfredo test is negative bilaterally. Fourteen finger test is negative bilaterally. Stinchfield test is negative bilaterally. Flexing forward and flexing backwards are rather unremarkable and he does not report pain with those maneuvers. Neuro General: patient oriented x3, gait normal and No confusion Cranial nerves: Yes CN's II-XII intact bilaterally, Yes Equal, round and reactive pupils present, Yes Normal hearing present and Yes Ability to bilate rally elevate shoulders present Speech: No Abnormal speech present Gait exam (Neuro): Normal gait present Motor exam (neuro): 5/5 motor strength present throughout Sensory Exam: No Sensory deficit (Neuro) Extrem General: No pedal edema Psych Speech and movement: Normal speech and movement present Affect: normal affect Attitude: cooperative Thought process: Normal thought process present Thought content: Normal thought content present Insight: Good insight present (Psych) Judgement: Good judgement present (Psych) Results Reviewed Results Reviewed: 12/22/2023 MR LUMBAR SPINE WITHOUT CONTRAST Normal lumbar lordosis is preserved. Trace anterolisthesis at L4-L5. Mild chronic height loss and anterior wedging of the T11 vertebral body with maintained lumbar vertebral body heights. There is no suspicious osseous lesion. Multilevel disc desiccation with preserved disc height. There is diffuse epidural lipomatosis. Level by level detail as follows: L1-L2: Epidural lipomatosis contributes to moderate thecal sac effacement. Patent neural foramina. L2-L3: Epidural lipomatosis contributes to moderate to severe thecal sac effacement. Small left foraminal disc protrusion mildly narrows the left neural foramen. Widely patent right neural foramen. L3-L4: Epidural lipomatosis moderately effaces the thecal sac. Shallow annular disc bulge and mild facet arthrosis mildly narrow the neural foramina. L4-L5: Epidural lipomatosis, annular disc bulge with left foraminal annular fissure, and advanced bilateral facet arthrosis with ligamentum flavum thickening and small right facet joint effusion. Moderate thecal sac effacement. Moderate right and mild to moderate left neural foraminal stenosis with slight impingement upon the exiting/extraforaminal right L4 nerve root. L5-S1: Annular disc bulge, bilateral facet arthrosis, and epidural lipomatosis causing severe effacement/compression of the thecal sac. Moderate bilateral neural foraminal stenosis with slight impingement upon the exiting/extraforaminal L5 nerve roots. The conus medullaris terminates at the level of L1-L2. The distal spinal cord is normal in appearance. No epidural fluid collection, hematoma, or mass. No significant abnormalities of the paraspinal musculature. Limited evaluation of the intra-abdominal structures without significant abnormalities. The abdominal aorta is of normal contour and caliber. Susceptibility artifact from right hip arthroplasty. Osseous fusion across the right and possibly also left sacroiliac joints. IMPRESSION: 1. Diffuse epidural lipomatosis in conjunction with mild spondylosis contribute to multilevel thecal sac effacement, most pronounced at L5-S1 where there is severe effacement and compression of the thecal sac. Moderate to severe L2-L3 and moderate L4-L5 the thecal sac effacement. 2. At L4-L5, there is moderate right and mild to moderate left neural foraminal stenosis with slight impingement upon the exiting/extraforaminal right L4 nerve root. 3. At L5-S1, there is moderate bilateral neural foraminal stenosis with slight impingement upon the exiting/extraforaminal L5 nerve roots. 4. Osseous fusion across the right and possibly also left sacroiliac joint Assessment & Plan Assessment & Plan (1) Chronic pain syndrome: Code(s): G89.4 - Chronic pain syndrome Category: Medical (2) Spondylosis, lumbar, with myelopathy: Code(s): M47.16 - Other spondylosis with myelopathy, lumbar region Category: Medical (3) Spondylolisthesis, lumbar region: Code(s): M43.16 - Spondylolisthesis, lumbar region Category: Medical (4) Spinal stenosis at L4-L5 level: Code(s): M48.061 - Spinal stenosis, lumbar region without neurogenic claudication Category: Medical (5) Neurogenic claudication due to lumbar spinal stenosis: Code(s): M48.062 - Spinal stenosis, lumbar region with neurogenic claudication Category: Medical (6) Intractable low back pain: Code(s): M54.59 - Other low back pain Category: Medical Plan Cameron presented to the office today for follow-up chronic back pain. MRI was reviewed with the patient again. Smoking cessation was discussed with the patient. Methocarbamol was discussed with the patient the dose was increased to 750 mg tid. as below. If there are any side effects patient should report them to us. That was explained to the patient. Despite the fact of presence of neurogenic claudication his insurance company denied mild procedure. Nevro SCS was discussed with the patient. We will schedule him for psychological evaluation. All questions and concerns were answered, patient agrees with the plan. Follow up in 1 month, sooner if needed Medications: New methocarbamol 750 mg PO TID PRN 90 tabs 8RF pain 30 days MDD 3 Patient Instructions: I here by testify that I spent 42 minutes in conversation with this patient as well as evaluating his prior diagnostic records, prior insurance denials, planning his care and organizing this note. [facility] adolescent psychiatrist [phone] helped us to maintain this conversation in Greek. Coding Level of Care Code Est Pt Level 5 (38758) Diagnoses Chronic pain syndrome G89.4 Spondylosis, lumbar, with myelopathy M47.16 Spondylolisthesis, lumbar region M43.16 Spinal stenosis at L4-L5 level M48.061 Neurogenic claudication due to lumbar spinal stenosis M48.062 Intractable low back pain M54.59
[2024-06-09 09:11] VITALS: BP 133/75; PULSE 105; O2SAT 98; BMI 40.9
== END 2024-06-09 09:34 | disposition home or self-care (01) ==
PROVIDERS: PCP Internal Medicine Geriatric Medicine; Visit Provider Anesthesiology
DX: G89.4 Chronic pain syndrome (principal); M47.16 Other spondylosis with myelopathy, lumbar region; M43.16 Spondylolisthesis, lumbar region; M48.061 Spinal stenosis, lumbar region without neurogenic claudication; M48.062 Spinal stenosis, lumbar region with neurogenic claudication; M54.59 Other low back pain
CPT/HCPCS: 99215

== ENCOUNTER → 2024-06-09 09:03 | Outpatient (BNVA) | payer MEDICAID, SELFPAY | PROVIDERS: PCP Internal Medicine Geriatric Medicine; Visit Provider Anesthesiology | DX: M47.16 Other spondylosis with myelopathy, lumbar region (principal); M43.16 Spondylolisthesis, lumbar region; M48.061 Spinal stenosis, lumbar region without neurogenic claudication; M48.062 Spinal stenosis, lumbar region with neurogenic claudication; M54.59 Other low back pain; G89.4 Chronic pain syndrome | CPT/HCPCS: 99212 ==

== ENCOUNTER 2024-06-18 07:38 | Day surgery (SDC) | payer MEDICAID, SELFPAY ==
--- NOTE | 2024-06-03 | ECG_ITS ---
Test Reason : PRE OP Blood Pressure : / mmHG Vent. Rate : 095 BPM Atrial Rate : 095 BPM P-R Int : 146 ms QRS Dur : 082 ms QT Int : 350 ms P-R-T Axes : 057 -21 038 degrees QTc Int : 439 ms Normal sinus rhythm Normal ECG When compared with ECG of 14-AUG-2023 13:30, No significant change was found Referred By: Izzy Lacey Electronically Signed By:HARIS GOODSON MD
[2024-06-03 10:34] VITALS: BP 116/69; PULSE 92; RESP 22; O2SAT 98; BMI 40.6
--- NOTE | 2024-06-03 10:51 | HO.ANESPROP2 ---
Documented by User: Izzy Lacey NP 06/04/24 13:30 HPI - Anesthesia Eval Consult details Narrative: 58yo M for Repair Hernia Umbilical,with possible mesh, 06/18/24 No recent illness No CP. [place] at baseline BMI: 40 COPD/Smoker: Chronic nonproductive cough. Follows [facility] Pulmo. Optimized for surgery. Scheduled inhalers. Rare albuterol use. [facility] Active Problems Active Problems: All Active Problems Environmental allergies (Acute) Obesity (Acute) GERD (gastroesophageal reflux disease) (Acute) Neurogenic claudication due to lumbar spinal stenosis (Acute) Spinal stenosis at L4-L5 level (Acute) Lower extremity edema (Acute) Orthopnea (Acute) Dyspnea on exertion (Acute) Spondylolisthesis, lumbar region (Acute) Spondylosis, lumbar, with myelopathy (Acute) Chronic pain syndrome (Acute) Chronic back pain greater than 3 months duration (Acute) Encounter for preoperative pulmonary examination (Acute) Pulmonary nodules (Acute) COPD (chronic obstructive pulmonary disease) (Acute) Atypical chest pain (Acute) Impingement syndrome, shoulder, left (Acute) Morbid obesity (Acute) Umbilical hernia, incarcerated (Acute) Status post total hip replacement, right (Acute) Hyperlipidemia (Acute) HTN (hypertension) (Acute) Past Medical History Medical History (Updated 06/10/24 @ 07:43 by Conor Bravo MD) DJD (degenerative joint disease) Back pain Morbid obesity Umbilical hernia, incarcerated Atypical chest pain COPD (chronic obstructive pulmonary disease) Tobacco abuse disorder Hyperlipidemia HTN (hypertension) Osteoarthritis of right hip Family History Family History Mother Diabetes Hypertension Heart attack Father Hypertension Heart attack Family history of problems with anesthesia: No Surgical History Surgical History Status post total hip replacement, right History of Problems with Anesthesia: No Social History Social History Household Members Other:: rents a room in a house Housing: House Are you a primary home health care physician to a significant other at home: No Do you presently have visiting nurse or other home services: No Alcohol intake: never Patient Tobacco Use Status: Current everyday Tobacco user Tobacco use type: Cigarette Cigarettes Per Day: 5 Years Smoked: 25 e-Cigarette/Vaping Use: Never Used Second Hand Smoke Exposure: No Use of substances other than those prescribed or required for medical reasons: No Have you been hit, kicked, punched, or otherwise hurt by someone within the past year? If so, by whom?: No Spiritual Healthcare Practices: none Buddhist Healthcare Practices: Scientology Cultural Healthcare Practices: none Are you DNR?: No Advance Directives: No (brother is primary contact) Advance Directives Information Provided: Yes (declined) Advance Directives on File: No Recently lost weight without trying: No Eating poorly because of decreased appetite: No Nutrition Risks: No Nutritional Risk Poor oral hygiene: No (upper full, loer partial denture) Meds Allergies Allergy/AdvReac Type Severity Reaction Status Date / Time No Known Allergies Allergy Verified 06/18/24 08:12 Home Medications ?Medication ?Instructions ?Recorded ?Confirmed ?Last Taken ?Type atorvastatin 20 mg tablet 20 mg PO DAILY 09/18/22 06/18/24 08/26/23 History lisinopril 10 mg tablet 10 mg PO QAM 09/18/22 06/18/24 06/17/24 History nicotine (polacrilex) 4 mg buccal 4 mg PO Q4H PRN Nicotine Cravings 06/12/23 06/18/24 06/17/24 History lozenge albuterol sulfate 90 mcg/actuation 1 - 2 puff inhalation QID PRN 06/02/24 06/18/24 06/18/24 History aerosol inhaler (Ventolin HFA) wheezing baclofen 10 mg tablet 10 mg PO TID PRN Pain 06/02/24 06/18/24 Unknown History diclofenac sodium 1 % topical gel 2 g topical QID PRN Pain 06/02/24 06/18/24 Unknown History hydroxyzine pamoate 25 mg capsule 25 mg PO BEDTIME PRN itch 06/02/24 06/18/24 Unknown History naproxen 500 mg tablet 500 mg PO BID PRN Pain 06/02/24 06/18/24 06/17/24 History acetaminophen 650 mg 650 mg PO Q8H PRN mild pain 06/09/24 06/18/24 Unknown History tablet,extended release furosemide 40 mg tablet 40 mg PO QAM 06/09/24 06/18/24 Unknown History Exam Height,Weight and Vital Signs: Height 5 ft 8 in Weight 121.109 kg Last Vital Signs Pulse 92 06/03/24 10:34 Resp 22 H 06/03/24 10:34 BP 116/69 06/03/24 10:34 Pulse Ox 98 06/03/24 10:34 O2 Del Method Room Air 06/03/24 10:34 Pertinent Lab Results Pertinent Lab Results: Laboratory Tests 04/30/24 10:58 Sodium 139 Potassium 3.3 Chloride 97 Carbon Dioxide 34 H BUN 14 Creatinine 1.27 Narrative Narrative: EKG 05/2024 Vent. Rate : 095 BPM Atrial Rate : 095 BPM P-R Int : 146 ms QRS Dur : 082 ms QT Int : 350 ms P-R-T Axes : 057 -21 038 degrees QTc Int : 439 ms Normal sinus rhythm Normal ECG When compared with ECG of 14-AUG-2023 13:30, No significant change was found ECHO 09/2022 Conclusions: - 1. Normal LV systolic function with grade 1 diastolic dysfunction 2. Normal cardiac valvular Doppler 3. No gross pericardial effusion NM caio perf SPECT rest & str 09/2022 Impression: 1. Myocardial perfusion imaging study shows normal myocardial perfusion 2. Gated LVEF is 55% 3. Transient ischemic dilatation not present EKG is nondiagnostic for ischemia Airway Mallampati Class: III TM Dist: >3cm (short neck) Denture: Upper Partial: Lower Heart: RRR Lungs: Diminished sounds Assessment and Plan Assessment Anesthesia Assessment: Anesthesia Plan Discussed and PAT Visit Final Anesthetic Review Family History of Problems with Anesthesia: No History of Problems with Anesthesia: No Documented by User: Lilia Michaud MD 06/18/24 08:20 [facility] Past Medical History Medical History (Updated 06/10/24 @ 07:43 by Conor Bravo MD) DJD (degenerative joint disease) Back pain Morbid obesity Umbilical hernia, incarcerated Atypical chest pain COPD (chronic obstructive pulmonary disease) Tobacco abuse disorder Hyperlipidemia HTN (hypertension) Osteoarthritis of right hip Family History Family History Mother Diabetes Hypertension Heart attack Father Hypertension Heart attack Surgical History Surgical History Status post total hip replacement, right Social History Social History Household Members Other:: rents a room in a house Housing: House Are you a primary home health care physician to a significant other at home: No Do you presently have visiting nurse or other home services: No Alcohol intake: never Patient Tobacco Use Status: Current everyday Tobacco user Tobacco use type: Cigarette Cigarettes Per Day: 5 Years Smoked: 25 e-Cigarette/Vaping Use: Never Used Second Hand Smoke Exposure: No Use of substances other than those prescribed or required for medical reasons: No Have you been hit, kicked, punched, or otherwise hurt by someone within the past year? If so, by whom?: No Spiritual Healthcare Practices: none Buddhist Healthcare Practices: Scientology Cultural Healthcare Practices: none Are you DNR?: No Advance Directives: No (brother is primary contact) Advance Directives Information Provided: Yes (declined) Advance Directives on File: No Recently lost weight without trying: No Eating poorly because of decreased appetite: No Nutrition Risks: No Nutritional Risk Poor oral hygiene: No (upper full, loer partial denture) Meds Allergies Allergy/AdvReac Type Severity Reaction Status Date / Time No Known Allergies Allergy Verified 06/18/24 08:12 Home Medications ?Medication ?Instructions ?Recorded ?Confirmed ?Last Taken ?Type atorvastatin 20 mg tablet 20 mg PO DAILY 09/18/22 06/18/24 08/26/23 History lisinopril 10 mg tablet 10 mg PO QAM 09/18/22 06/18/24 06/17/24 History nicotine (polacrilex) 4 mg buccal 4 mg PO Q4H PRN Nicotine Cravings 06/12/23 06/18/24 06/17/24 History lozenge albuterol sulfate 90 mcg/actuation 1 - 2 puff inhalation QID PRN 06/02/24 06/18/24 06/18/24 History aerosol inhaler (Ventolin HFA) wheezing baclofen 10 mg tablet 10 mg PO TID PRN Pain 06/02/24 06/18/24 Unknown History diclofenac sodium 1 % topical gel 2 g topical QID PRN Pain 06/02/24 06/18/24 Unknown History hydroxyzine pamoate 25 mg capsule 25 mg PO BEDTIME PRN itch 06/02/24 06/18/24 Unknown History naproxen 500 mg tablet 500 mg PO BID PRN Pain 06/02/24 06/18/24 06/17/24 History acetaminophen 650 mg 650 mg PO Q8H PRN mild pain 06/09/24 06/18/24 Unknown History tablet,extended release furosemide 40 mg tablet 40 mg PO QAM 06/09/24 06/18/24 Unknown History Exam Airway Neck ROM: Full Assessment and Plan Assessment Anesthesia Assessment: Chart Reviewed Final Anesthetic Review NPO: Yes ASA Class: III Final Preanesthetic Review: No Changes in Pt Med Stat, Meds/Allgs Chart Reviewed, Consent Obtained/Reviewed and Anes Risks/Benef Reviewed Patient Risk: Intermediate Procedure Risk: Low Anesthetic Plan Anesthetic Plan: GA Disposition: Standard PACU
[2024-06-03 12:13] LABS: Hemoglobin 16.3 g/dl (14.0-18.0); Mean Corpuscular HGB Conc 32.6 g/dl (31.0-36.0); Mean Corpuscular Hemoglobin 28.5 pg (27.0-33.0); Mean Corpuscular Volume 87.4 fL (80.0-98.0); Mean Platelet Volume 9.2 fL (9.4-12.4); Platelet Count 304 X10*3/uL (160-400); Red Blood Count 5.72 X10*6/uL (4.60-5.80); Red Cell Distribution Width 14.6 % (11.0-16.0); White Blood Count 10.4 X10*3/uL (4.8-10.8)
[2024-06-18] VITALS (22 sets, daily range): BP systolic 124–169; BP diastolic 77–101; PULSE 80–95; RESP 18–22; TEMP 36.2–37.2; O2SAT 88–100; BMI 41.5
--- NOTE | 2024-06-18 08:25 | PC.NURSE ---
Dr. Michaud at bedside to assess patients breathing. Diagnosis of THOMPSON and COPD, presents SOB on exertion and rest while sitting in chair. Sees [place] regularly. SaO2 93%, lungs clear and dim. Patient took all his inhalers this morning and brought his albuterol inhaler. Dr. Michaud aware. Patient to take two puffs right before they go into OR.
[2024-06-18] MEDS: Lactated Ringers 1,000 ML 100 ML IVCONT (08:34)
--- NOTE | 2024-06-18 08:54 | MHC.SHP ---
Pre-Procedural Eval Section A - 24 Hr Update-Section A only Date of Service: 06/18/24 Section B - Complete if H&P > 30 days Chief Complaint: Umbilical hernia with obstruction, without gangren Details of Present Illness: Nonreducible chronic umbilical hernia, with some discomfort Relevant Social History: Tobacco Use Present Medications: see Short Stay Collaborative assessment Medical History: Significant History (COPD, smoker, GERD, obesity) Allergies: Allergies Allergy/AdvReac Type Severity Reaction Status Date / Time No Known Allergies Allergy Verified 06/18/24 08:12 Review of Systems Sugical H&P ROS: Negative: Constitution, Gastrointestinal and Genitourinary and Yes, Specify: Respiratory (Mild chronic shortness of breath) Exam Surgical H&P Exam: Normal: Heart and Normal: Lungs and Significant Findings: Abdomen (Not reducible hernia umbilicus) Plan Diagnosis/Plan: Unchanged I have reviewed the history and physical and performed a pertinent physical examination on my patient. No changes have occurred unless specified. Time Spent With Patient Time: Total time managing care of this patient today ____ minutes.
--- NOTE | 2024-06-18 09:03 | PC.NURSE ---
Patient last took aspirin yesterday. Dr. Humphries aware. Okay to proceed with surgery.
--- NOTE | 2024-06-18 09:54 | W.PM.OPN ---
Operative Note Operative Note Date of Service: 06/18/24 Narrative: Preop diagnosis: Umbilical hernia, with chronic incarceration Postop diagnosis: The same Procedure: Repair of chronically incarcerated umbilical hernia, with Ventralex mesh , with excision of omentum Surgeon: Cesar Humphries MD The patient is a 59-year-old male with a chronically incarcerated umbilical hernia. In view of some discomfort he wanted to proceed with repair. He understood the technique of the procedure as well as the risks, benefits, and alternatives. He was brought to the operating room. Was placed supine under general anesthesia via endotracheal tube. The abdomen was prepped and draped in the usual sterile fashion. A surgical time-out was done. The patient received cefazolin 2 g IV preoperatively I infiltrated the planned line of incision with lidocaine 1%. I made an infraumbilical curvilinear transverse incision with a blade 15. This carried down through the full-thickness of the skin subcutaneous fat. I lifted the subcu umbilicus as a flap by sharp dissection with Metzenbaum scissors. The hernia was seen underneath this and I sharply dissected this off of the rest of the umbilicus and the subcutaneous layer down to the fascial defect. He has a large amount of omental fat that was incarcerated with a small defect. Since we could not reduce this large amount of omental fat to the small defect, decided to do partial appendectomy. I serially ligated the incarcerated omental fat and divided this above the her and excised some of the omental fat. This allowed me to therefore reduce the hernia through the small defect. The fascial defect was about 1 cm in diameter. I used a small-sized Ventralex mesh to reinforced the defect. There was no adhesions surrounding the underside of the fascia. The mesh was flattened I secured the Prolene straps of the mesh the fascial edge on both sides with Prolene 2 sutures. I him the Prolene straps flush on the fascial level. I closed the fascial defect with a [id number] Maxon 1 stitch I tacked the umbilicus to the fascia with a Polysorb 3-0 stitch to re-create the dimple The skin incision was closed with subcuticular running Polysorb 4-0 sutures. I infiltrated the area with Marcaine 0.5% for postop analgesia. Dressings were applied. The procedure was completed The patient tolerated the procedure well. There were no immediate complications. Initial and final counts of sponges and instruments were correct. Estimated blood loss was less than 10 cc. The patient was extubated without difficulty and transferred to the recovery room with stable vital signs
[2024-06-18] MEDS: Albuterol Sulfate (0.083%) 2.5 MG/3 ML VIAL.NEB INHALE (11:16)
--- NOTE | 2024-06-18 15:27 | PM.EVENT ---
Event Note Date of Service: 06/22/24 Event Note: pt had been drowsy postop in PACU with subsequently lowl O2sats he was kept for a longer period of time in PACU now much more awake O2 sats 94% on RA looks comfortable mentating well doing very well on incentive spirometry he says he feels ready to be discharged to home Time Spent With Patient Time: Total time managing care of this patient today ____ minutes.
== END 2024-06-18 16:35 | disposition home or self-care (01) ==
PROVIDERS: Nurse Practitioner; PCP Internal Medicine Geriatric Medicine; Visit Provider Surgery
PROC: (CPT 49592; principal; 2024-06-18 09:30)
DX: K42.0 Umbilical hernia with obstruction, without gangrene (principal); K66.8 Other specified disorders of peritoneum; R40.0 Somnolence; Y83.8 Other surgical procedures as the cause of abnormal reaction of the patient, or of later complication, without mention of misadventure at the time of the procedure; Y92.238 Other place in hospital as the place of occurrence of the external cause; R09.02 Hypoxemia; J44.9 Chronic obstructive pulmonary disease, unspecified; R05.3 Chronic cough; I10 Essential (primary) hypertension; E66.01 Morbid (severe) obesity due to excess calories; Z68.41 Body mass index [BMI] 40.0-44.9, adult; K21.9 Gastro-esophageal reflux disease without esophagitis; G89.4 Chronic pain syndrome; R07.89 Other chest pain; E78.5 Hyperlipidemia, unspecified; M19.90 Unspecified osteoarthritis, unspecified site; Z79.51 Long term (current) use of inhaled steroids; Z79.82 Long term (current) use of aspirin; Z79.1 Long term (current) use of non-steroidal anti-inflammatories (NSAID); F17.210 Nicotine dependence, cigarettes, uncomplicated; Z79.899 Other long term (current) drug therapy; Z96.641 Presence of right artificial hip joint
CPT/HCPCS: 49592; 36415; 85027; 88304; 93005; 94640; C1781; J0131; J0690; J1100; J2003; J2250; J2405; J2704; J2795; J3010

== ENCOUNTER → 2024-06-18 07:38 | Outpatient (BNV) | payer MEDICAID, SELFPAY | PROVIDERS: PCP Internal Medicine Geriatric Medicine; Visit Provider Surgery | DX: K42.0 Umbilical hernia with obstruction, without gangrene (principal) | CPT/HCPCS: 49592; 99499 ==

== ENCOUNTER 2024-06-28 08:12 | Outpatient (AMB) | payer MEDICAID, SELFPAY ==
--- NOTE | 2024-06-28 08:18 | MHC.OFFVIS ---
Vital Signs 06/28/24 08:24 Height 5 ft 8 in Weight 256 lb 6 oz BMI 39.0 Intake Visit Reasons: s/p Rpr umbilical hernia, poss mesh Intake Note: This patient presents for post-op assessment status post repair of chronically incarcerated umbilical hernia with ventralex mesh, excision of Omentum. Pt c/o; reports no complaints pertaining to surgery. Inspector Elevators Required: Yes Inspector Elevators Language: Return Agent [employer] Services: Inspector Elevators Present Inspector Elevators Name: Barbi Information Interpreted: non-clinical & clinical Accompanied by: Self / Same As Patient Allergies No Known Allergies Allergy (Verified 06/28/24 08:25) HPI HPI s/p Rpr umbilical hernia, poss mesh: Details: He underwent repair of a chronically incarcerated umbilical hernia with mesh last 06/18/2024. He says he is doing well. He denies complaints with regards to the area. [facility] Medical History DJD (degenerative joint disease) Back pain Morbid obesity Umbilical hernia, incarcerated Atypical chest pain COPD (chronic obstructive pulmonary disease) Tobacco abuse disorder Hyperlipidemia HTN (hypertension) Osteoarthritis of right hip Surgical History History of umbilical hernia repair (~06/18/24) Status post total hip replacement, right Family History Mother Diabetes Hypertension Heart attack Father Hypertension Heart attack Social History Household Members Other:: rents a room in a house Housing: House Are you a primary child care worker to a significant other at home: No Do you presently have visiting nurse or other home services: No Alcohol intake: never Patient Tobacco Use Status: Current everyday Tobacco user Tobacco use type: Cigarette Cigarettes Per Day: 5 Years Smoked: 25 e-Cigarette/Vaping Use: Never Used Second Hand Smoke Exposure: No Review of Systems Const Denies chills and Denies fever(s) Card Reports dyspnea on exertion Resp Reports dyspnea on exertion Physical Exam Vital Signs: BMI result Body Mass Index 39.0 Const Other: Morbidly obese General: no acute distress Resp Other: Mildly short of breath as baseline GI Other: Very protuberant, obese but soft, incision clean and dry, repair intact Assessment & Plan Assessment & Plan (1) Umbilical hernia, incarcerated: Code(s): K42.0 - Umbilical hernia with obstruction, without gangrene Category: Medical Plan: Status post repair with mesh. He is doing very well. The repair site is intact. I advised him to avoid lifting more than 20 lb for at least 3 more weeks. I also explained to him the benefit of significant weight loss He can follow up on a p.r.n. basis. Coding Level of Care Code Global (43520) Diagnoses Umbilical hernia, incarcerated K42.0
[2024-06-28 08:24] VITALS: BMI 39.0
== END 2024-06-28 09:00 | disposition home or self-care (01) ==
LOC: HO.HGS 08:13
PROVIDERS: PCP Internal Medicine Geriatric Medicine; Visit Provider Surgery
DX: K42.0 Umbilical hernia with obstruction, without gangrene (principal)
CPT/HCPCS: 99212

== ENCOUNTER → 2024-06-28 08:12 | Outpatient (BNVA) | payer MEDICAID, SELFPAY | PROVIDERS: PCP Internal Medicine Geriatric Medicine; Visit Provider Surgery | DX: Z09 Encounter for follow-up examination after completed treatment for conditions other than malignant neoplasm (principal); Z87.19 Personal history of other diseases of the digestive system; Z98.890 Other specified postprocedural states | CPT/HCPCS: 99212 ==

== ENCOUNTER 2024-06-30 07:56 | Outpatient (AMB) | payer MEDICAID, SELFPAY ==
[2024-06-30 08:54] VITALS: BP 138/64; PULSE 103; O2SAT 93; BMI 39.4
--- NOTE | 2024-06-30 08:54 | MHC.OFFVIS ---
Vital Signs 06/30/24 08:54 Height 5 ft 8 in Weight 259 lb 0.69 oz BMI 39.4 BP 138/64 Blood Pressure Location Rt brachial Position Sitting Pulse 103 H Pulse Oximetry (%) 93 Oxygen Delivery Method Room Air Intake Visit Reasons: COPD/COUGH Analytical Chemistry Teacher Required: Yes Analytical Chemistry Teacher Name: Radha Arellano Reyes Allergies No Known Allergies Allergy (Verified 06/28/24 08:25) HPI HPI COPD/COUGH: Details: 59-year-old gentleman, recent 60 pack-year smoker, with underlying diastolic dysfunction, now followed for moderate asthma/COPD overlap syndrome, pulmonary component to dyspnea, environmental allergies, and pulmonary nodules. He has been using Advair, Incruse, and albuterol MDI with suboptimal control of his symptoms. He complains of mild bronchitic exacerbation. He has been using Lasix at 80 mg daily with good control of his orthopnea. He completed his immunologic workup that shows significant allergic component to his symptoms. [facility] Medical History DJD (degenerative joint disease) Back pain Morbid obesity Umbilical hernia, incarcerated Atypical chest pain COPD (chronic obstructive pulmonary disease) Tobacco abuse disorder Hyperlipidemia HTN (hypertension) Osteoarthritis of right hip Surgical History History of umbilical hernia repair (~06/18/24) Status post total hip replacement, right Family History Mother Diabetes Hypertension Heart attack Father Hypertension Heart attack Social History Household Members Other:: rents a room in a house Housing: House Are you a primary attending ambulatory care to a significant other at home: No Do you presently have visiting nurse or other home services: No Alcohol intake: never Patient Tobacco Use Status: Current everyday Tobacco user Tobacco use type: Cigarette Cigarettes Per Day: 5 Years Smoked: 25 e-Cigarette/Vaping Use: Never Used Second Hand Smoke Exposure: No Review of Systems Const Denies daytime sleepiness, Denies excessive sweating, Denies fatigue, Denies fever(s), Denies lethargy, Denies malaise, Denies night sweats, Denies snoring and Denies weight loss Eyes Denies blurry vision and Denies itchy eyes ENT Denies nasal congestion, Denies post nasal drip, Denies sinus pain, Denies sinus pressure and Denies other ( Thrush) Card Denies chest pain, Denies pedal edema, Denies dyspnea, Denies orthopnea and Denies paroxysmal nocturnal dyspnea Resp Reports cough, Denies hemoptysis, Reports excessive phlegm production, Denies dyspnea, Denies snoring and Denies wheezing GI Denies abdominal pain and Denies heartburn Musc Denies myalgias, Denies arthralgias and Denies joint swelling Skin/Breast Denies rash Neuro Denies memory loss and Denies seizure-like activity Psych Denies abnormal sleep pattern, Denies anxiety and Denies memory loss Endo Denies excessive sweating, Denies fatigue and Denies heat intolerance Jorden/Lymph Denies easy bruising Aller/Immun Denies itchy eyes, Denies seasonal rhinorrhea and Denies wheezing Physical Exam Vital Signs: Last Vital Signs Pulse 103 H 06/30/24 08:54 BP 138/64 06/30/24 08:54 Pulse Ox 93 06/30/24 08:54 Oxygen Delivery Method Room Air 06/30/24 08:54 BMI result Body Mass Index 39.4 Const General: no acute distress and alert Nutritional Appearance: obese Orientation/consciousness: Other orientation findings ( oriented) HEENT Head: Yes atraumatic Eyes General: appearance normal, both eyes and all related structures Sclerae: sclerae normal EOM: EOMs intact bilaterally Neck Neck: Yes supple Lymphatic: no lymphadenopathy noted Resp Effort & Inspection: normal respiratory effort and no use of accessory muscles Auscultation: clear to auscultation bilaterally Cardio Rate: regular rate Rhythm: regular rhythm Heart sounds: no gallops, no murmurs and no rubs Skin General skin exam: other ( warm) Extrem General: No clubbing, No cyanosis and No edema Assessment & Plan Assessment & Plan (1) Asthma-COPD overlap syndrome: Code(s): J44.89 - Other specified chronic obstructive pulmonary disease Category: Medical Plan: Suboptimal control on Advair, Incruse, and albuterol MDI. Pending Dupixent approval. (2) Environmental allergies: Code(s): Z91.09 - Other allergy status, other than to drugs and biological substances Category: Medical Plan: Results of immunologic testing reviewed, patient has significant allergic component to his symptoms. Expect to improve on Dupixent. (3) Orthopnea: Code(s): R06.01 - Orthopnea Category: Medical Plan: Well controlled on current diuretic dose of Lasix 80 mg in the morning. (4) Pulmonary nodules: Code(s): R91.8 - Other nonspecific abnormal finding of lung field Category: Medical Plan: 8 mm right lower lobe pulmonary nodule, follow-up CT chest is pending for July of 2024. Coding Level of Care Code Est Pt Level 5 (85855) Diagnoses Asthma-COPD overlap syndrome J44.89 Environmental allergies Z91.09 Orthopnea R06.01 Pulmonary nodules R91.8
== END 2024-06-30 09:23 | disposition home or self-care (01) ==
PROVIDERS: PCP Internal Medicine Geriatric Medicine; Visit Provider Internal Medicine Pulmonary Disease
DX: J44.89 Other specified chronic obstructive pulmonary disease (principal); R91.8 Other nonspecific abnormal finding of lung field
CPT/HCPCS: 99214

== ENCOUNTER → 2024-06-30 07:56 | Outpatient (BNVA) | payer MEDICAID, SELFPAY | PROVIDERS: PCP Internal Medicine Geriatric Medicine; Visit Provider Internal Medicine Pulmonary Disease | DX: J44.89 Other specified chronic obstructive pulmonary disease (principal); I51.89 Other ill-defined heart diseases; F17.210 Nicotine dependence, cigarettes, uncomplicated; R06.01 Orthopnea; R91.8 Other nonspecific abnormal finding of lung field; Z91.09 Other allergy status, other than to drugs and biological substances | CPT/HCPCS: 99212 ==

== ENCOUNTER 2024-07-05 18:58 | Inpatient (IN) | payer MEDICAID, SELFPAY ==
--- NOTE | ~2024-07-05 | XR_ITS ---
EXAMINATION: XR CHEST CLINICAL INFORMATION: Chest pain COMPARISON: Chest radiograph 03/16/2024 10:18 AM. TECHNIQUE: Frontal view of the chest was obtained. FINDINGS: Normal appearance of the cardiomediastinal structures. Pleura normal pattern of pulmonary vasculature. No focal pulmonary consolidation. XR/XR chest 1V IMPRESSION: No acute cardiopulmonary abnormalities. Electronically signed by: Chencho Lozoya MD 07/05/2024 11:26 PM ATUL
[2024-07-05 19:06] VITALS: BP 107/62; BP 74/48; PULSE 82; RESP 18; TEMP 36.9; O2SAT 98; BMI 38.8
--- NOTE | 2024-07-05 19:09 | ECG_ITS ---
Test Reason : diziness Blood Pressure : / mmHG Vent. Rate : 081 BPM Atrial Rate : 081 BPM P-R Int : 168 ms QRS Dur : 082 ms QT Int : 388 ms P-R-T Axes : 059 -07 022 degrees QTc Int : 450 ms Normal sinus rhythm Normal ECG When compared with ECG of 03-JUN-2024 11:18, No significant change was found Referred By: Generic ED Physician Electronically Signed By:Rob Diego
--- NOTE | 2024-07-05 19:26 | ED_ITS ---
HPI - General Adult General Chief complaint: Dizziness Stated complaint: DIZZINESS Time Seen by Provider: 07/05/24 19:26 History of Present Illness ED Provider: Veda [place] narrative: The patient is a 59-year-old male who says that he does not have a history of diabetes. He has a history of COPD, hypertension, and hyperlipidemia. He also has a lot of chronic pain problems. The patient went to the [facility] today because of a previously scheduled appointment. At the [facility] he was found to have a high blood sugar and a low blood pressure. An ambulance was called and he was sent to the emergency room. The patient says that he has had increased urine output and increased thirst for the last 2 weeks. He does not think he has had a fever. He has had no significant new pains of any kind. No significant chest pain or abdominal pain. No vomiting. Related Data Home Medications ?Medication ?Instructions ?Recorded ?Confirmed atorvastatin 20 mg tablet 20 mg PO DAILY 09/18/22 06/18/24 lisinopril 10 mg tablet 10 mg PO QAM 09/18/22 06/18/24 nicotine (polacrilex) 4 mg buccal 4 mg PO Q4H PRN Nicotine Cravings 06/12/23 06/18/24 lozenge albuterol sulfate 90 mcg/actuation 1 - 2 puff inhalation QID PRN 06/02/24 06/18/24 aerosol inhaler (Ventolin HFA) wheezing baclofen 10 mg tablet 10 mg PO TID PRN Pain 06/02/24 06/18/24 diclofenac sodium 1 % topical gel 2 g topical QID PRN Pain 06/02/24 06/18/24 hydroxyzine pamoate 25 mg capsule 25 mg PO BEDTIME PRN itch 06/02/24 06/18/24 naproxen 500 mg tablet 500 mg PO BID PRN Pain 06/02/24 06/18/24 Previous Rx's ?Medication ?Instructions ?Recorded aspirin 325 mg tablet 325 mg PO BID@0100,1300 42 days 08/27/23 #84 tabs docusate sodium 100 mg capsule 100 mg PO BID 30 days #60 caps 08/27/23 walker #1 ea 08/28/23 umeclidinium 62.5 mcg/actuation 1 inh inhalation QAM #30 ea 06/19/24 blister powder for inhalation (Incruse Ellipta) fluticasone 500 mcg-salmeterol 50 1 inh inhalation BID #60 ea 03/16/24 mcg/dose blistr powdr for inhalation (Advair Diskus) omeprazole 40 mg capsule,delayed 40 mg PO DAILY #30 caps 03/16/24 release furosemide 80 mg tablet 80 mg PO QAM #30 tabs 04/21/24 methocarbamol 750 mg tablet 750 mg PO TID PRN pain 30 days #90 06/09/24 tabs oxycodone-acetaminophen 5 mg-325 1 tab PO Q4-6H PRN pain #20 tabs 06/18/24 mg tablet (Percocet) guaifenesin 600 mg tablet, 600 mg PO BID #14 tabs 06/30/24 extended release 12 hr levofloxacin 500 mg tablet 500 mg PO DAILY #7 tabs 06/30/24 Allergies Allergy/AdvReac Type Severity Reaction Status Date / Time No Known Allergies Allergy Verified 07/05/24 19:07 Review of Systems 2 Review of Systems: Yes all other systems are reviewed and are negative [facility] Past Medical History Medical History DJD (degenerative joint disease) Back pain Morbid obesity Umbilical hernia, incarcerated Atypical chest pain COPD (chronic obstructive pulmonary disease) Tobacco abuse disorder Hyperlipidemia HTN (hypertension) Osteoarthritis of right hip Surgical History History of umbilical hernia repair (~06/18/24) Status post total hip replacement, right Family History Family History Mother Diabetes Hypertension Heart attack Father Hypertension Heart attack Social History Social History Household Members Other:: rents a room in a house Housing: House Are you a primary acute care occupational therapist to a significant other at home: No Do you presently have visiting nurse or other home services: No Alcohol intake: never Patient Tobacco Use Status: Current everyday Tobacco user Tobacco use type: Cigarette Cigarettes Per Day: 5 Years Smoked: 25 Smoked in Last 30 Days: Yes e-Cigarette/Vaping Use: Never Used Second Hand Smoke Exposure: No Use of substances other than those prescribed or required for medical reasons: No Advance Directives: No Advance Directives Information Provided: No Do you have a plan to hurt others: No Plan Physical Exam ED Vital Signs: Vital Signs - 24 hr 07/05/24 19:06 07/05/24 21:24 07/05/24 22:00 Temperature 98.4 F Pulse Rate 82 79 81 Respiratory Rate 18 14 16 Blood Pressure 107/62 88/50 L 116/54 L Pulse Oximetry 95 94 Oxygen Delivery Method Room Air Room Air Room Air BMI result Body Mass Index 38.8 Const Other: The patient is an obese 59-year-old male who was awake and seems alert. He seems tired but not in distress or obviously toxic. HENMT Other: Face is symmetrical. Mucous membranes not obviously dry. Eyes Other: Pupils are round equal, conjunctivae are clear, extraocular movements intact General: appearance normal, both eyes and all related structures Neck Other: Moving his neck easily. No JVD. Resp Effort & Inspection: normal respiratory effort Auscultation: clear to auscultation bilaterally Cardio Rate: regular rate Rhythm: regular rhythm Heart sounds: S1 normal heart sound present and S2 normal heart sound present GI Other: The patient has a large, protuberant abdomen. It seems soft and without tenderness. Skin Other: Skin is pale and dry. No diaphoresis. No lesions. Neuro Other: The patient is awake and alert and seems oriented. He seems somewhat fatigued but not toxic. Cranial nerves are grossly intact. He moves his extremities symmetrically and appropriately. Extrem Other: No peripheral edema. Feet are warm and seem well-perfused although discrete pulses are difficult to appreciate. No calf swelling or tenderness, no asymmetry. Medications Administered Generic Name Dose Route Start Last Admin Trade Name Freq PRN Reason Stop Dose Admin Insulin Human Regular 100 unit in 100 mls @ 6 mls/hr 07/05/24 22:00 07/05/24 22:17 Myxredlin IVCONT 6 unit/hr .[id number] LOUIS 6 mls/hr Administration Protocol 6 UNIT/HR Discontinued Medications Generic Name Dose Route Start Last Admin Trade Name Freq PRN Reason Stop Dose Admin Lactated Ringer's 1,000 mls @ 999 mls/hr 07/05/24 20:00 07/05/24 21:23 Lr IV 07/05/24 21:00 Infused .Q1H1M LOUIS Infusion Sodium Chloride 1,000 mls @ 999 mls/hr 07/05/24 21:30 07/05/24 22:49 Ns IV 07/05/24 22:30 Infused .Q1H1M LOUIS Infusion Insulin Human Regular 6 unit 07/05/24 22:15 07/05/24 22:17 Insulin Regular, Human 100 Unit/Ml 10 Ml Vial IVPUSH 07/05/24 22:16 6 unit ONCE ONE Administration Medical Decision Making Medical Decision Making [facility] Narrative: The patient is a 59-year-old male who went to the [facility] today for a previously scheduled appointment. He was found to have a high blood sugar and low blood pressure. He has not previously been diagnosed with diabetes and he is on no diabetic medications. He had a hemoglobin A1c 2 months ago that was mildly elevated at 6.5. Here the patient was initially treated with IV fluids. His labs showed a normal white count with a nearly normal differential. His hemoglobin was 13.4. I was surprised this was not higher as I assumed he was dehydrated and hemoconcentrated. His platelet count is 297. Venous blood gas shows a pH of 7.29 pCO2 of 43. Metabolic panel shows a sodium of 126, potassium 4.5, chloride 89, carbon dioxide 18, anion gap 24, BUN 30, creatinine 1.86. GFR is 37. His blood sugar was 596. Beta hydroxybutyrate 4.54 His EKG has an unusual appearance but it is very similar to all of his previous EKGs. His troponin is normal. Urinalysis showed glucosuria and also ketones in the urine. C-reactive protein is mildly elevated at 1.97. Overall impression is that the patient has new diabetes. My suspicion would be that this is most likely type 2 diabetes rather than any complication of type 1 diabetes. He has a mild anion gap acidosis and a mild elevation of his beta hydroxybutyrate. He was treated with IV fluids. I spoke to the hospitalist who was concerned that the labs are sufficiently consistent with possible DKA that the patient should be on IV insulin. The ICU has no beds. Since the patient is not exhibiting any Kussmaul breathing were seeming obviously in significant distress otherwise I think that continuing to rehydrate him and start some IV insulin is not unreasonable. I will be signing the patient out to my colleague at change of shift with a plan to repeat labs at 01:00 to see if the patient is sufficiently improving to possibly go to the floor rather than requiring a transfer to another facility. Lab Data 07/05/24 20:03 07/05/24 20:03 Labs: Lab Results 07/05/24 07/05/24 07/05/24 Range/Units 19:07 19:37 20:03 WBC 8.5 (4.8-10.8) X10*3/uL RBC 4.71 (4.60-5.80) X10*6/uL Hgb 13.4 L (14.0-18.0) g/dl Hct 39.8 L D (42.0-52.0) % MCV 84.5 (80.0-98.0) fL MCH 28.5 (27.0-33.0) pg MCHC 33.7 (31.0-36.0) g/dl RDW 14.6 (11.0-16.0) % Plt Count 297 (160-400) X10*3/uL MPV 9.7 (9.4-12.4) fL Immature Gran % (Auto) 2.0 H (0.0-0.4) % Neut % (Auto) 73.5 H (45-73) % Lymph % (Auto) 16.4 L (20-40) % [place] % (Auto) 6.8 (2-11) % Eos % (Auto) 0.9 (0-4) % Baso % (Auto) 0.4 (0-2) % Lymph # (Auto) 1.4 (1.2-4.9) X10*3/uL [place] # (Auto) 0.6 (0.1-1.2) X10*3/uL Eos # (Auto) 0.1 (0.0-0.4) X10*3/uL Baso # (Auto) 0.0 (0.0-0.2) X10*3/uL Abs Immat Gran (auto) 0.17 H (0.00-0.03) X10*3/uL Absolute Neuts (auto) 6.3 (2.0-8.3) x10*3/uL Absolute Nucleated RBC 0.000 (0.0-0.012) X10*3/uL Nucleated RBC % (auto) 0.0 (0.0-0.2) /100WBC VBG pH (7.32-7.43) VBG pCO2 mmHg VBG pO2 mmHg VBG HCO3 (22-26) mmol/L VBG O2 Saturation % VBG Base Excess mmol/L Sodium 126 L (135-145) mmol/L Potassium 4.5 D (3.3-5.1) mmol/L Chloride 89 L (96-108) mmol/L Carbon Dioxide 18 L (22-29) mmol/L Anion Gap 24 H (12-20) BUN 30 H (9-16) mg/dL Creatinine 1.86 H (0.5-1.4) mg/dL Estim Creat Clear Calc 52.8 Estimated GFR 37 POC Glucose > 600 H* (60-115) mg/dL Random Glucose 596 H* (60-115) mg/dL Calcium 8.8 D (8.4-10.2) mg/dL Total Bilirubin 0.5 (0.0-1.0) mg/dL AST 12 (5-37) U/L ALT 12 (0-40) U/L Alkaline Phosphatase 138 H (39-117) U/L Troponin I High Sens 2.7 (<3.5-35.0) ng/L C-Reactive Protein 1.97 H (< or = 0.50) mg/dL Total Protein 6.5 (6.5-8.0) g/dL Albumin 3.4 L (3.5-5.0) g/dL Beta-Hydroxybutyrate 4.54 H (0.02-0.27) mmol/L Urine Color Urine Appearance Urine pH (5.0-9.0) Ur Specific [place] (1.005-1.025) Urine Protein (Neg-Trace) mg/dL Urine Glucose (UA) (Negative) mg/dL Urine Ketones (Negative) mg/dL Urine Blood (Negative) Urine Nitrite (Negative) Ur Leukocyte Esterase (Negative) Urine RBC (0-2) /HPF Urine WBC (0-5) /HPF Ur Squamous Epith Cells (0-2) /HPF Urine Bacteria (None Seen) Hyaline Casts (0-2) /LPF 07/05/24 07/05/24 07/05/24 Range/Units 20:09 21:10 22:07 WBC (4.8-10.8) X10*3/uL RBC (4.60-5.80) X10*6/uL Hgb (14.0-18.0) g/dl Hct (42.0-52.0) % MCV (80.0-98.0) fL MCH (27.0-33.0) pg MCHC (31.0-36.0) g/dl RDW (11.0-16.0) % Plt Count (160-400) X10*3/uL MPV (9.4-12.4) fL Immature Gran % (Auto) (0.0-0.4) % Neut % (Auto) (45-73) % Lymph % (Auto) (20-40) % [place] % (Auto) (2-11) % Eos % (Auto) (0-4) % Baso % (Auto) (0-2) % Lymph # (Auto) (1.2-4.9) X10*3/uL [place] # (Auto) (0.1-1.2) X10*3/uL Eos # (Auto) (0.0-0.4) X10*3/uL Baso # (Auto) (0.0-0.2) X10*3/uL Abs Immat Gran (auto) (0.00-0.03) X10*3/uL Absolute Neuts (auto) (2.0-8.3) x10*3/uL Absolute Nucleated RBC (0.0-0.012) X10*3/uL Nucleated RBC % (auto) (0.0-0.2) /100WBC VBG pH 7.29 L (7.32-7.43) VBG pCO2 43 mmHg VBG pO2 33 mmHg VBG HCO3 21 L (22-26) mmol/L VBG O2 Saturation 65.0 % VBG Base Excess -4.9 mmol/L Sodium (135-145) mmol/L Potassium (3.3-5.1) mmol/L Chloride (96-108) mmol/L Carbon Dioxide (22-29) mmol/L Anion Gap (12-20) BUN (9-16) mg/dL Creatinine (0.5-1.4) mg/dL Estim Creat Clear Calc Estimated GFR POC Glucose 508 H* (60-115) mg/dL Random Glucose (60-115) mg/dL Calcium (8.4-10.2) mg/dL Total Bilirubin (0.0-1.0) mg/dL AST (5-37) U/L ALT (0-40) U/L Alkaline Phosphatase (39-117) U/L Troponin I High Sens (<3.5-35.0) ng/L C-Reactive Protein (< or = 0.50) mg/dL Total Protein (6.5-8.0) g/dL Albumin (3.5-5.0) g/dL Beta-Hydroxybutyrate (0.02-0.27) mmol/L Urine Color Yellow Urine Appearance Clear Urine pH 5.5 (5.0-9.0) Ur Specific [place] 1.025 (1.005-1.025) Urine Protein Negative (Neg-Trace) mg/dL Urine Glucose (UA) >=1000 H (Negative) mg/dL Urine Ketones 40 (Negative) mg/dL Urine Blood Negative (Negative) Urine Nitrite Negative (Negative) Ur Leukocyte Esterase Negative (Negative) Urine RBC 0-2 (0-2) /HPF Urine WBC 0-5 (0-5) /HPF Ur Squamous Epith Cells 0-2 (0-2) /HPF Urine Bacteria None Seen (None Seen) Hyaline Casts 11-20 (0-2) /LPF Independent Interpretation I performed an independent interpretation of an: EKG Interpretation: EKG at 1939 shows normal sinus rhythm at 81 beats per minute. EKG has somewhat unusual appearance with what I suspect is J-point elevation in his anterior leads. Feel the EKGs an unusual looking EKG but it is very similar to all of his previous EKGs. It does not seem to be any significant change from any of his previous EKGs. Critical Care Time Critical Care Time Critical Care Time: Yes Total Critical Care Time: 35 Attestation: The patient was critically ill with a high probability of imminent or life- threatening deterioration. ?I spent greater than 30 minutes of discontinuous time evaluating the patient, delivering critical care at the bedside, discussing evaluating data with consultants. ?Critical care time does not include time spent performing separately billable procedures or teaching. ?Time spent performing critical care with 35 minutes. Discharge Plan Discharge Clinical Impression: Acute hyperglycemia, Diabetes, Acute kidney injury Patient Disposition: Still a Patient Prescriptions: No Action (DME) walker Misc See Rx Instructions .MEDSUPPLY Qty: 1 0RF Rx Instructions: Folding Front wheeled walker aspirin 325 mg Tablet 325 mg PO BID@0100,1300 42 Days Qty: 84 0RF docusate sodium 100 mg Capsule 100 mg PO BID 30 Days Qty: 60 0RF baclofen 10 mg Tablet 10 mg PO TID PRN (Reason: Pain) albuterol sulfate [Ventolin HFA] 90 mcg/actuation HFA aerosol inhaler 1 - 2 puff inhalation QID PRN (Reason: wheezing) naproxen 500 mg Tablet 500 mg PO BID PRN (Reason: Pain) hydroxyzine pamoate 25 mg capsule 25 mg PO BEDTIME PRN (Reason: itch) diclofenac sodium 1 % Gel 2 g TOPICAL QID PRN (Reason: Pain) Rx Instructions: apply to single elbow, wrist or hand; for hand includes palm/fingers/back of hand oxycodone-acetaminophen [Percocet] 5-325 mg tablet 1 tab PO Q4-6H PRN (Reason: pain) Qty: 20 0RF Rx Instructions: Partial Fill upon patient request. atorvastatin 20 mg tablet 20 mg PO DAILY lisinopril 10 mg tablet 10 mg PO QAM Incruse Ellipta 62.5 mcg/actuation blister with device 1 inh inhalation QAM Qty: 30 6RF methocarbamol 750 mg tablet 750 mg PO TID MDD 3 PRN (Reason: pain) 30 Days Qty: 90 8RF nicotine (polacrilex) 4 mg lozenge 4 mg PO Q4H PRN (Reason: Nicotine Cravings) fluticasone propion-salmeterol [Advair Diskus] 500-50 mcg/dose blister with device 1 inh inhalation BID Qty: 60 6RF omeprazole 40 mg capsule,delayed release(DR/EC) 40 mg PO DAILY Qty: 30 6RF furosemide 80 mg tablet 80 mg PO QAM Qty: 30 6RF levofloxacin 500 mg tablet 500 mg PO DAILY Qty: 7 0RF guaifenesin 600 mg tablet extended release 12hr 600 mg PO BID Qty: 14 0RF Print Language: [place]an
[2024-07-05 19:50] LABS: Glucose, Whole Blood > 600 mg/dL (60-115)
[2024-07-05] MEDS: Lactated Ringers 1,000 ML 999 ML IV (19:51)
[2024-07-05 20:09] LABS: Basophils Percent Auto 0.4 % (0-2); Eosinophils Absolute Auto 0.1 X10*3/uL (0.0-0.4); Eosinophils Percent Auto 0.9 % (0-4); Hematocrit 39.8 % (42.0-52.0); Hemoglobin 13.4 g/dl (14.0-18.0); Imm Gran Abs Auto 0.17 X10*3/uL (0.00-0.03); Lymphocytes Absolute Auto 1.4 X10*3/uL (1.2-4.9); Lymphocytes Percent Auto 16.4 % (20-40); Mean Corpuscular HGB Conc 33.7 g/dl (31.0-36.0); Mean Corpuscular Hemoglobin 28.5 pg (27.0-33.0); Mean Corpuscular Volume 84.5 fL (80.0-98.0); Mean Platelet Volume 9.7 fL (9.4-12.4); Monocytes Absolute Auto 0.6 X10*3/uL (0.1-1.2); Monocytes Percent Auto 6.8 % (2-11); Neutrophils Absolute Auto 6.3 x10*3/uL (2.0-8.3); Neutrophils Percent Auto 73.5 % (45-73); Platelet Count 297 X10*3/uL (160-400); Red Blood Count 4.71 X10*6/uL (4.60-5.80); Red Cell Distribution Width 14.6 % (11.0-16.0); White Blood Count 8.5 X10*3/uL (4.8-10.8)
[2024-07-05 20:12] LABS: MANUAL DIFF FLAG NO
[2024-07-05 20:13] LABS: VBG Base Excess -4.9 mmol/L; VBG HCO3 21 mmol/L (22-26); VBG pCO2 43 mmHg; VBG pH 7.29 (7.32-7.43); VBG pO2 33 mmHg
[2024-07-05 20:13] LABS: Venous Blood Gas Refer to POC result
[2024-07-05 20:17] LABS: Troponin-I High Sensitivity 2.7 ng/L (<3.5-35.0)
[2024-07-05 20:27] LABS: Beta-Hydroxybutyrate 4.54 mmol/L (0.02-0.27)
[2024-07-05 20:53] LABS: Alanine Aminotransferase 12 U/L (0-40); Albumin Level 3.4 g/dL (3.5-5.0); Anion Gap 24 (12-20); Aspartate Amino Transferase 12 U/L (5-37); Bilirubin Total 0.5 mg/dL (0.0-1.0); Blood Urea Nitrogen 30 mg/dL (9-16); Calcium 8.8 mg/dL (8.4-10.2); Carbon Dioxide 18 mmol/L (22-29); Chloride 89 mmol/L (96-108); Creatinine Clr Calc Pharmacy 52.8; Estimated Glomerular Filt Rate 37; Glucose Random 596 mg/dL (60-115); Potassium 4.5 mmol/L (3.3-5.1); Sodium 126 mmol/L (135-145); Total Protein 6.5 g/dL (6.5-8.0)
[2024-07-05 21:08] LABS: Alkaline Phosphatase 138 U/L (39-117)
[2024-07-05 21:18] LABS: Appearance Urine Clear; Color Urine Yellow; Glucose Urine UA >=1000 mg/dL (Negative); Leukocyte Esterase Urine Negative (Negative); Nitrite Urine Negative (Negative); PH 5.5 (5.0-9.0); Specific Gravity - Urine 1.025 (1.005-1.025); UMIC TRIGGER UACC YES; Urine Blood Negative (Negative); Urine Ketones 40 mg/dL (Negative); Urine Protein Negative (Neg-Trace)
[2024-07-05] MEDS: 0.9 % Sodium Chloride 1,000 ML 999 ML IV ×2 (21:23→23:41)
[2024-07-05 21:24] VITALS: BP 88/50; PULSE 79; RESP 14; O2SAT 95
[2024-07-05 21:54] LABS: Bacteria Urine None Seen (None Seen); RBC Urine 0-2 /HPF (0-2); Squamous Epithelial Cell Urine 0-2 /HPF (0-2); WBC Urine 0-5 /HPF (0-5)
[2024-07-05 22:00] VITALS: BP 116/54; PULSE 81; RESP 16; O2SAT 94
[2024-07-05 22:11] LABS: C Reactive Protein 1.97 mg/dL (< or = 0.50)
[2024-07-05] MEDS: Insulin Regular/NS 100 UNIT/100 ML PLAST..BAG 6 UNIT IVCONT (22:17)
[2024-07-05] MEDS: Insulin Regular, Human 100 UNIT/ML 10 ML VIAL 6 UNIT IVPUSH (22:17)
[2024-07-05 22:24] LABS: Glucose, Whole Blood 508 mg/dL (60-115)
[2024-07-05 23:26] LABS: Glucose, Whole Blood 359 mg/dL (60-115)
[2024-07-05 23:37] LABS: Amphetamine Screen Urine Not Detected (Not Detect); Barbiturates, Urine Not Detected (Not Detect); Benzodiazepines Screen Urine Not Detected (Not Detect); Buprenorphine Scr Not Detected (Not Detect); Cannabinoid Screen Urine Not Detected (Not Detect); Cocaine Screen Urine Not Detected (Not Detect); Fentanyl, urine Not Detected (Not Detect); Methadone Screen, Urine Not Detected (Not Detect); Opiate Screen Urine Not Detected (Not Detect); Oxycodone Screen Urine Not Detected (Not Detect); Phencyclidine Screen Urine Not Detected (Not Detect)
[2024-07-06 00:19] VITALS: BP 102/51; PULSE 82; RESP 17; O2SAT 97
[2024-07-06 00:41] LABS: Glucose, Whole Blood 315 mg/dL (60-115)
[2024-07-06 01:01] LABS: Venous Blood Gas Refer to POC result
[2024-07-06 01:03] LABS: Hematocrit 38.1 % (42.0-52.0); Hemoglobin 13.1 g/dl (14.0-18.0); Mean Corpuscular HGB Conc 34.4 g/dl (31.0-36.0); Mean Corpuscular Hemoglobin 28.6 pg (27.0-33.0); Mean Corpuscular Volume 83.2 fL (80.0-98.0); Mean Platelet Volume 9.4 fL (9.4-12.4); Platelet Count 305 X10*3/uL (160-400); Red Blood Count 4.58 X10*6/uL (4.60-5.80); Red Cell Distribution Width 14.6 % (11.0-16.0)
[2024-07-06 01:07] LABS: VBG Base Excess -1.2 mmol/L; VBG HCO3 24 mmol/L (22-26); VBG pCO2 41 mmHg; VBG pH 7.36 (7.32-7.43); VBG pO2 104 mmHg
[2024-07-06 01:21] LABS: Anion Gap 16 (12-20); Blood Urea Nitrogen 28 mg/dL (9-16); Carbon Dioxide 21 mmol/L (22-29); Chloride 98 mmol/L (96-108); Creatinine Clr Calc Pharmacy 70.2; Estimated Glomerular Filt Rate 52; Glucose Random 323 mg/dL (60-115); Potassium 3.4 mmol/L (3.3-5.1); Sodium 132 mmol/L (135-145)
--- NOTE | 2024-07-06 01:31 | PC.NURSE ---
Insulin drip paused per Dr. Gramajo's order order.
--- NOTE | 2024-07-06 01:33 | P.HPHOSP_ITS ---
History of Present Illness Date of Service: 07/06/24 Chief Complaint: Polyuria and polydipsia This is a 59-year-old male with pertinent history of mixed hyperlipidemia, morbid obesity, hypertension, COPD not on home oxygen, lower extremity edema on Lasix, gastroesophageal reflux disease, chronic back pain who presents to the emergency department for evaluation of polyuria and polydipsia. Patient states he has had increased thirst and increased urination for the last 2 weeks. He was feeling dizzy and lightheaded on the day of presentation so went to [facility]. He was told that his blood sugar is very high and he was sent to the ER for further evaluation. No fever, chills, chest pain, palpitations, shortness of breath, abdominal pain, changes in urinary or bowel habits. No history of diabetes mellitus in the past. Does have family history of diabetes mellitus. In the emergency department, patient was found to be in DKA and given IV insulin and IV fluids. Review of Systems 2 Constitutional: Constitutional: Reports fatigue, Reports lethargy, Reports malaise and Reports weakness Cardiovascular: Cardiovascular: Reports no additional cardiovascular complaints Respiratory: Respiratory: Reports no additional respiratory complaints Gastrointestinal: Gastrointestinal: Reports no additional gastrointestinal complaints Genitourinary: Genitourinary: Reports no additional male genitourinary complaints Neurologic: Reports weakness Endocrine: Endocrine: Reports fatigue, Reports polydipsia and Reports polyuria [facility] Medical History DJD (degenerative joint disease) Back pain Morbid obesity Umbilical hernia, incarcerated Atypical chest pain COPD (chronic obstructive pulmonary disease) Tobacco abuse disorder Hyperlipidemia HTN (hypertension) Osteoarthritis of right hip Family History Mother Diabetes Hypertension Heart attack Father Hypertension Heart attack Surgical History History of umbilical hernia repair (~06/18/24) Status post total hip replacement, right Social History Household Members Other:: rents a room in a house Housing: House Are you a primary health care law specialist to a significant other at home: No Do you presently have visiting nurse or other home services: No Alcohol intake: never Patient Tobacco Use Status: Current everyday Tobacco user Tobacco use type: Cigarette Cigarettes Per Day: 5 Years Smoked: 25 Smoked in Last 30 Days: Yes e-Cigarette/Vaping Use: Never Used Second Hand Smoke Exposure: No Use of substances other than those prescribed or required for medical reasons: No Advance Directives: No Advance Directives Information Provided: No Do you have a plan to hurt others: No Plan Nutrition Risks: No Nutritional Risk Meds Allergies Allergy/AdvReac Type Severity Reaction Status Date / Time No Known Allergies Allergy Verified 07/05/24 19:07 Active Medications: Current Medications Insulin Human Regular (Myxredlin) 100 unit in 100 mls @ 6 mls/hr IVCONT .[id number] [place]IS; Protocol Last Titration: 07/06/24 00:38 Dose: 4.5 unit/hr, 4.5 mls/hr Dextrose (D10) 250 mls @ 750 mls/hr IV Q30M PRN PRN Reason: BG <70 Home Medications ?Medication ?Instructions ?Recorded ?Confirmed ?Last Taken ?Type atorvastatin 20 mg tablet 20 mg PO DAILY 09/18/22 06/18/24 08/26/23 History lisinopril 10 mg tablet 10 mg PO QAM 09/18/22 06/18/24 06/17/24 History nicotine (polacrilex) 4 mg buccal 4 mg PO Q4H PRN Nicotine Cravings 06/12/23 06/18/24 06/17/24 History lozenge albuterol sulfate 90 mcg/actuation 1 - 2 puff inhalation QID PRN 06/02/24 06/18/24 06/18/24 09:07 History aerosol inhaler (Ventolin HFA) wheezing baclofen 10 mg tablet 10 mg PO TID PRN Pain 06/02/24 06/18/24 Unknown History diclofenac sodium 1 % topical gel 2 g topical QID PRN Pain 06/02/24 06/18/24 Unknown History hydroxyzine pamoate 25 mg capsule 25 mg PO BEDTIME PRN itch 06/02/24 06/18/24 Unknown History naproxen 500 mg tablet 500 mg PO BID PRN Pain 06/02/24 06/18/24 06/17/24 History Physical Exam 2 Vital Signs and Narrative: Vital Signs: Last Vital Signs Temp 98.4 F 07/05/24 19:06 Pulse 82 11/12/24 00:19 Resp 17 07/06/24 00:19 BP 102/51 L 07/06/24 00:19 Pulse Ox 97 07/06/24 00:19 O2 Del Method Room Air 07/05/24 22:00 BMI result Body Mass Index 38.8 Middle-aged male lying in bed in no distress Neck supple, no JVD Regular rate and rhythm, S1-S2 heard Regular breath sounds bilaterally, no wheezing or crackles appreciated Abdomen soft nontender, no guarding, no rigidity Patient is awake, alert and oriented to self, place, time and person ; no focal motor deficit Psych: Normal mood No pedal edema Results Labs 07/06/24 00:59 07/06/24 00:59 Labs: Laboratory Results - last 24 hr 07/05/24 07/05/24 07/05/24 19:07 19:37 20:03 MCV 84.5 MCH 28.5 MCHC 33.7 RDW 14.6 Plt Count 297 MPV 9.7 Immature Gran % (Auto) 2.0 H Neut % (Auto) 73.5 H Lymph % (Auto) 16.4 L [place] % (Auto) 6.8 Eos % (Auto) 0.9 Baso % (Auto) 0.4 Lymph # (Auto) 1.4 [place] # (Auto) 0.6 Eos # (Auto) 0.1 Baso # (Auto) 0.0 Abs Immat Gran (auto) 0.17 H Absolute Neuts (auto) 6.3 Absolute Nucleated RBC 0.000 Nucleated RBC % (auto) 0.0 VBG pH VBG pCO2 VBG pO2 VBG HCO3 VBG O2 Saturation VBG Base Excess Anion Gap 24 H Estim Creat Clear Calc 52.8 Estimated GFR 37 POC Glucose > 600 H* Random Glucose 596 H* Calcium 8.8 D Total Bilirubin 0.5 AST 12 ALT 12 Alkaline Phosphatase 138 H Troponin I High Sens 2.7 C-Reactive Protein 1.97 H Total Protein 6.5 Albumin 3.4 L Beta-Hydroxybutyrate 4.54 H Urine Color Urine Appearance Urine pH Ur Specific [place] Urine Protein Urine Glucose (UA) Urine Ketones Urine Blood Urine Nitrite Ur Leukocyte Esterase Urine RBC Urine WBC Ur Squamous Epith Cells Urine Bacteria Hyaline Casts Urine Opiates Screen Ur Buprenorphine Scrn Ur Oxycodone Screen Urine Methadone Screen Urine Fentanyl Screen Ur Barbiturates Screen Ur Phencyclidine Scrn Ur Amphetamines Screen U Benzodiazepines Scrn Urine Cocaine Screen U Marijuana (THC) Screen 07/05/24 07/05/24 07/05/24 20:09 21:10 22:07 MCV MCH MCHC RDW Plt Count MPV Immature Gran % (Auto) Neut % (Auto) Lymph % (Auto) [place] % (Auto) Eos % (Auto) Baso % (Auto) Lymph # (Auto) [place] # (Auto) Eos # (Auto) Baso # (Auto) Abs Immat Gran (auto) Absolute Neuts (auto) Absolute Nucleated RBC Nucleated RBC % (auto) VBG pH 7.29 L VBG pCO2 43 VBG pO2 33 VBG HCO3 21 L VBG O2 Saturation 65.0 VBG Base Excess -4.9 Anion Gap Estim Creat Clear Calc Estimated GFR POC Glucose 508 H* Random Glucose Calcium Total Bilirubin AST ALT Alkaline Phosphatase Troponin I High Sens C-Reactive Protein Total Protein Albumin Beta-Hydroxybutyrate Urine Color Yellow Urine Appearance Clear Urine pH 5.5 Ur Specific [place] 1.025 Urine Protein Negative Urine Glucose (UA) >=1000 H Urine Ketones 40 Urine Blood Negative Urine Nitrite Negative Ur Leukocyte Esterase Negative Urine RBC 0-2 Urine WBC 0-5 Ur Squamous Epith Cells 0-2 Urine Bacteria None Seen Hyaline Casts 11-20 Urine Opiates Screen Not Detected Ur Buprenorphine Scrn Not Detected Ur Oxycodone Screen Not Detected Urine Methadone Screen Not Detected Urine Fentanyl Screen Not Detected Ur Barbiturates Screen Not Detected Ur Phencyclidine Scrn Not Detected Ur Amphetamines Screen Not Detected U Benzodiazepines Scrn Not Detected Urine Cocaine Screen Not Detected U Marijuana (THC) Screen Not Detected 07/05/24 07/06/24 07/06/24 23:21 00:33 00:59 MCV 83.2 MCH 28.6 MCHC 34.4 RDW 14.6 Plt Count 305 MPV 9.4 Immature Gran % (Auto) Neut % (Auto) Lymph % (Auto) [place] % (Auto) Eos % (Auto) Baso % (Auto) Lymph # (Auto) [place] # (Auto) Eos # (Auto) Baso # (Auto) Abs Immat Gran (auto) Absolute Neuts (auto) Absolute Nucleated RBC 0.000 Nucleated RBC % (auto) 0.0 VBG pH VBG pCO2 VBG pO2 VBG HCO3 VBG O2 Saturation VBG Base Excess Anion Gap 16 Estim Creat Clear Calc 70.2 Estimated GFR 52 POC Glucose 359 H* 315 H Random Glucose 323 H Calcium 9.0 Total Bilirubin AST ALT Alkaline Phosphatase Troponin I High Sens C-Reactive Protein Total Protein Albumin Beta-Hydroxybutyrate Urine Color Urine Appearance Urine pH Ur Specific [place] Urine Protein Urine Glucose (UA) Urine Ketones Urine Blood Urine Nitrite Ur Leukocyte Esterase Urine RBC Urine WBC Ur Squamous Epith Cells Urine Bacteria Hyaline Casts Urine Opiates Screen Ur Buprenorphine Scrn Ur Oxycodone Screen Urine Methadone Screen Urine Fentanyl Screen Ur Barbiturates Screen Ur Phencyclidine Scrn Ur Amphetamines Screen U Benzodiazepines Scrn Urine Cocaine Screen U Marijuana (THC) Screen 07/06/24 01:02 MCV MCH MCHC RDW Plt Count MPV Immature Gran % (Auto) Neut % (Auto) Lymph % (Auto) [place] % (Auto) Eos % (Auto) Baso % (Auto) Lymph # (Auto) [place] # (Auto) Eos # (Auto) Baso # (Auto) Abs Immat Gran (auto) Absolute Neuts (auto) Absolute Nucleated RBC Nucleated RBC % (auto) VBG pH 7.36 VBG pCO2 41 VBG pO2 104 VBG HCO3 24 VBG O2 Saturation 99.0 VBG Base Excess -1.2 Anion Gap Estim Creat Clear Calc Estimated GFR POC Glucose Random Glucose Calcium Total Bilirubin AST ALT Alkaline Phosphatase Troponin I High Sens C-Reactive Protein Total Protein Albumin Beta-Hydroxybutyrate Urine Color Urine Appearance Urine pH Ur Specific [place] Urine Protein Urine Glucose (UA) Urine Ketones Urine Blood Urine Nitrite Ur Leukocyte Esterase Urine RBC Urine WBC Ur Squamous Epith Cells Urine Bacteria Hyaline Casts Urine Opiates Screen Ur Buprenorphine Scrn Ur Oxycodone Screen Urine Methadone Screen Urine Fentanyl Screen Ur Barbiturates Screen Ur Phencyclidine Scrn Ur Amphetamines Screen U Benzodiazepines Scrn Urine Cocaine Screen U Marijuana (THC) Screen Imaging Radiologist's Impressions: Impressions Chest X-Ray 07/05/24 21:30 IMPRESSION: No acute cardiopulmonary abnormalities. Electronically signed by: Chencho Lozoya MD 07/05/2024 11:26 PM [facility] Assessment and Plan (1) DKA (diabetic ketoacidosis): Status: Acute (2) Acute hyperglycemia: Status: Acute (3) Acute kidney injury: Status: Acute Plan This is a 59-year-old male with pertinent history of mixed hyperlipidemia, morbid obesity, hypertension, COPD not on home oxygen, lower extremity edema on Lasix, gastroesophageal reflux disease, chronic back pain who presents to the emergency department for evaluation of polyuria and polydipsia. #. Acute diabetic ketoacidosis with uncontrolled diabetes mellitus (new diagnosis): Patient given IV insulin and IV fluids in the ER with closure of anion gap. Will admit patient with basal plus insulin regimen. Diabetes education. A1c pending #. Acute kidney injury stage I, prerenal: Creatinine improved with crystalloid resuscitation. Avoid nephrotoxins #. Hypertension: Hold lisinopril and furosemide in the setting of KEV #. Obesity: Counseled regarding diet and exercise #. COPD: No exacerbation during admission. Continue home inhalers #. Gastroesophageal reflux disease: On PPI #. Mixed hyperlipidemia: On statin #. Chronic back pain: On chronic opiates Med rec pending DVT prophylaxis: Lovenox Full code Admit as inpatient and will require two night minimum hospital stay for close monitoring of blood glucose, kidney function (as above), which is not possible in a lesser acute setting. Quality Stroke Does the patient have a stroke diagnosis?: No VTE Prior VTE?: No VTE Risk Level:: Medical - moderate - high VTE Device Contraindication: Treatment Not Indicated VTE Drug Contraindication: N/A - Med Ordered
[2024-07-06] MEDS: Insulin Glargine,Hum.rec.anlog 100 UNIT/ML 10 ML VIAL 20 UNIT SUBCUT ×2 (01:50→21:05)
[2024-07-06 01:52] VITALS: BP 104/54; PULSE 76; RESP 16; TEMP 36.9; O2SAT 95
[2024-07-06 04:55] LABS: MANUAL DIFF FLAG NO
[2024-07-06 04:57] LABS: Basophils Absolute Auto 0.1 X10*3/uL (0.0-0.2); Basophils Percent Auto 0.7 % (0-2); Eosinophils Absolute Auto 0.2 X10*3/uL (0.0-0.4); Eosinophils Percent Auto 1.8 % (0-4); Hematocrit 38.1 % (42.0-52.0); Imm Gran Abs Auto 0.17 X10*3/uL (0.00-0.03); Lymphocytes Percent Auto 22.6 % (20-40); Mean Corpuscular HGB Conc 34.1 g/dl (31.0-36.0); Mean Corpuscular Hemoglobin 28.6 pg (27.0-33.0); Mean Corpuscular Volume 83.9 fL (80.0-98.0); Mean Platelet Volume 9.5 fL (9.4-12.4); Monocytes Absolute Auto 0.6 X10*3/uL (0.1-1.2); Neutrophils Absolute Auto 5.7 x10*3/uL (2.0-8.3); Neutrophils Percent Auto 65.9 % (45-73); Platelet Count 311 X10*3/uL (160-400); Red Blood Count 4.54 X10*6/uL (4.60-5.80); Red Cell Distribution Width 14.9 % (11.0-16.0); White Blood Count 8.7 X10*3/uL (4.8-10.8)
[2024-07-06 05:18] LABS: Anion Gap 19 (12-20); Blood Urea Nitrogen 29 mg/dL (9-16); Calcium 8.8 mg/dL (8.4-10.2); Carbon Dioxide 19 mmol/L (22-29); Chloride 99 mmol/L (96-108); Creatinine Clr Calc Pharmacy 66.8; Estimated Glomerular Filt Rate 49; Glucose Random 365 mg/dL (60-115); Potassium 3.7 mmol/L (3.3-5.1); Sodium 133 mmol/L (135-145)
[2024-07-06 05:44] VITALS: BP 112/60; PULSE 87; RESP 12; O2SAT 95
[2024-07-06 07:17] LABS: Glucose, Whole Blood 386 mg/dL (60-115)
[2024-07-06 07:39] LABS: Hemoglobin A1C 505.5645 umol/L; Hemoglobin A1c % > 14.0 % (<6.0); Total Hemoglobin (HGBA1C) 3561.8053 umol/L
[2024-07-06] MEDS: Insulin Lispro 100 UNIT/ML 3 ML VIAL SUBCUT ×4 (07:46→21:05)
[2024-07-06] MEDS: 0.9 % Sodium Chloride Flush 3 ML SYRINGE IVFLUSH ×3 (07:47→23:05)
[2024-07-06] MEDS: Insulin Lispro 100 UNIT/ML 3 ML VIAL 10 UNIT SUBCUT ×4 (07:47→21:06)
--- NOTE | 2024-07-06 07:52 | PC.NURSE ---
Glucose 386, MD Collins made aware per protocol. Instructed to give 10 units lispro (per sliding scale) then additional 10 units lispro (additional order placed by ). Pt eating breakfast at this time, denies any needs.
--- NOTE | 2024-07-06 09:39 | P.PNIM_ITS ---
Subjective Subjective Date of Service: 07/06/24 Interval History: feeling better Physical Exam 2 Vital Signs: Vital Signs: Last Vital Signs Temp 98.4 F 07/06/24 01:52 Pulse 87 07/06/24 05:44 Resp 12 07/06/24 05:44 BP 112/60 07/06/24 05:44 Pulse Ox 95 07/06/24 05:44 O2 Del Method Room Air 07/06/24 05:44 BMI result Body Mass Index 38.8 General: AO X 3, no acute distress Resp: CTA bilateral, no accessory muscles used CVS: S1,S2,RRR GI: soft, non tender, non distended Neuro: motor grossly intact, alert Psych: appropriate affect, appropriate insight Objective Data Active Medications Acetaminophen (Acetaminophen 325 Mg Tablet) 650 mg PO Q6H PRN PRN Reason: Pain, Mild (Pain Scale 1-3), fever or headache Calcium Carbonate (Calcium Carbonate 750 Mg Tab.Chew) 750 mg PO Q4H PRN PRN Reason: Heartburn Enoxaparin Sodium (Enoxaparin Sodium 40 Mg/0.4 Ml Syringe) 40 mg SUBCUT Q24H [place] Glucose (Glucose Gel 15 Gm Gel..Gram.) 15 gm PO Q15M PRN; Protocol PRN Reason: per Hypoglycemia Standing Ord. Dextrose (D10) 250 mls @ 750 mls/hr IV Q15M PRN; Protocol PRN Reason: per Hypoglycemia Standing Ord. Insulin Glargine (Insulin Glargine,Hum.Rec.Anlog 100 Unit/Ml 10 Ml Vial) 20 unit SUBCUT BEDTIME [place]IS Insulin Human Lispro (Insulin Lispro 100 Unit/Ml 3 Ml Vial) 0 unit SUBCUT QIDACHS [facility]; Protocol Last Admin: 07/06/24 07:46 Dose: 10 unit Documented By: WILFREDO Comments: Glucose 386, MD Collins made aware. Insulin Human Lispro (Insulin Lispro 100 Unit/Ml 3 Ml Vial) 10 unit SUBCUT QIDACHS [facility] Last Admin: 07/06/24 07:47 Dose: 10 unit Documented By: WILFREDO Magnesium Hydroxide (Milk Of Magnesia 30 Ml Oral.Susp) 30 ml PO DAILY PRN PRN Reason: Constipation Melatonin (Melatonin 3 Mg Tablet) 6 mg PO BEDTIME PRN PRN Reason: Insomnia Ondansetron HCl (Ondansetron Hcl 4 Mg/2 Ml Vial) 4 mg IVPUSH Q8H PRN PRN Reason: Nausea and Vomiting Sodium Chloride (0.9 % Sodium Chloride Flush 3 Ml Syringe) [facility] Last Admin: 07/06/24 07:47 Dose: 3 ml Documented By: WILFREDO Labs 07/06/24 04:38 07/06/24 04:38 Labs: Laboratory Results - last 24 hr 07/05/24 07/05/24 07/05/24 19:07 19:37 20:03 MCV 84.5 MCH 28.5 MCHC 33.7 RDW 14.6 Plt Count 297 MPV 9.7 Immature Gran % (Auto) 2.0 H Neut % (Auto) 73.5 H Lymph % (Auto) 16.4 L [place] % (Auto) 6.8 Eos % (Auto) 0.9 Baso % (Auto) 0.4 Lymph # (Auto) 1.4 [place] # (Auto) 0.6 Eos # (Auto) 0.1 Baso # (Auto) 0.0 Abs Immat Gran (auto) 0.17 H Absolute Neuts (auto) 6.3 Absolute Nucleated RBC 0.000 Nucleated RBC % (auto) 0.0 VBG pH VBG pCO2 VBG pO2 VBG HCO3 VBG O2 Saturation VBG Base Excess Anion Gap 24 H Estim Creat Clear Calc 52.8 Estimated GFR 37 POC Glucose > 600 H* Random Glucose 596 H* Estimat Average Glucose TNP Hemoglobin A1c % > 14.0 H Calcium 8.8 D Total Bilirubin 0.5 AST 12 ALT 12 Alkaline Phosphatase 138 H Troponin I High Sens 2.7 C-Reactive Protein 1.97 H Total Protein 6.5 Albumin 3.4 L Beta-Hydroxybutyrate 4.54 H Urine Color Urine Appearance Urine pH Ur Specific [place] Urine Protein Urine Glucose (UA) Urine Ketones Urine Blood Urine Nitrite Ur Leukocyte Esterase Urine RBC Urine WBC Ur Squamous Epith Cells Urine Bacteria Hyaline Casts Urine Opiates Screen Ur Buprenorphine Scrn Ur Oxycodone Screen Urine Methadone Screen Urine Fentanyl Screen Ur Barbiturates Screen Ur Phencyclidine Scrn Ur Amphetamines Screen U Benzodiazepines Scrn Urine Cocaine Screen U Marijuana (THC) Screen 07/05/24 07/05/24 07/05/24 20:09 21:10 22:07 MCV MCH MCHC RDW Plt Count MPV Immature Gran % (Auto) Neut % (Auto) Lymph % (Auto) [place] % (Auto) Eos % (Auto) Baso % (Auto) Lymph # (Auto) [place] # (Auto) Eos # (Auto) Baso # (Auto) Abs Immat Gran (auto) Absolute Neuts (auto) Absolute Nucleated RBC Nucleated RBC % (auto) VBG pH 7.29 L VBG pCO2 43 VBG pO2 33 VBG HCO3 21 L VBG O2 Saturation 65.0 VBG Base Excess -4.9 Anion Gap Estim Creat Clear Calc Estimated GFR POC Glucose 508 H* Random Glucose Estimat Average Glucose Hemoglobin A1c % Calcium Total Bilirubin AST ALT Alkaline Phosphatase Troponin I High Sens C-Reactive Protein Total Protein Albumin Beta-Hydroxybutyrate Urine Color Yellow Urine Appearance Clear Urine pH 5.5 Ur Specific [place] 1.025 Urine Protein Negative Urine Glucose (UA) >=1000 H Urine Ketones 40 Urine Blood Negative Urine Nitrite Negative Ur Leukocyte Esterase Negative Urine RBC 0-2 Urine WBC 0-5 Ur Squamous Epith Cells 0-2 Urine Bacteria None Seen Hyaline Casts 11-20 Urine Opiates Screen Not Detected Ur Buprenorphine Scrn Not Detected Ur Oxycodone Screen Not Detected Urine Methadone Screen Not Detected Urine Fentanyl Screen Not Detected Ur Barbiturates Screen Not Detected Ur Phencyclidine Scrn Not Detected Ur Amphetamines Screen Not Detected U Benzodiazepines Scrn Not Detected Urine Cocaine Screen Not Detected U Marijuana (THC) Screen Not Detected 07/05/24 07/06/24 07/06/24 23:21 00:33 00:59 MCV 83.2 MCH 28.6 MCHC 34.4 RDW 14.6 Plt Count 305 MPV 9.4 Immature Gran % (Auto) Neut % (Auto) Lymph % (Auto) [place] % (Auto) Eos % (Auto) Baso % (Auto) Lymph # (Auto) [place] # (Auto) Eos # (Auto) Baso # (Auto) Abs Immat Gran (auto) Absolute Neuts (auto) Absolute Nucleated RBC 0.000 Nucleated RBC % (auto) 0.0 VBG pH VBG pCO2 VBG pO2 VBG HCO3 VBG O2 Saturation VBG Base Excess Anion Gap 16 Estim Creat Clear Calc 70.2 Estimated GFR 52 POC Glucose 359 H* 315 H Random Glucose 323 H Estimat Average Glucose Hemoglobin A1c % Calcium 9.0 Total Bilirubin AST ALT Alkaline Phosphatase Troponin I High Sens C-Reactive Protein Total Protein Albumin Beta-Hydroxybutyrate Urine Color Urine Appearance Urine pH Ur Specific [place] Urine Protein Urine Glucose (UA) Urine Ketones Urine Blood Urine Nitrite Ur Leukocyte Esterase Urine RBC Urine WBC Ur Squamous Epith Cells Urine Bacteria Hyaline Casts Urine Opiates Screen Ur Buprenorphine Scrn Ur Oxycodone Screen Urine Methadone Screen Urine Fentanyl Screen Ur Barbiturates Screen Ur Phencyclidine Scrn Ur Amphetamines Screen U Benzodiazepines Scrn Urine Cocaine Screen U Marijuana (THC) Screen 07/06/24 07/06/24 07/06/24 01:02 04:38 07:13 MCV 83.9 MCH 28.6 MCHC 34.1 RDW 14.9 Plt Count 311 MPV 9.5 Immature Gran % (Auto) 2.0 H Neut % (Auto) 65.9 Lymph % (Auto) 22.6 [place] % (Auto) 7.0 Eos % (Auto) 1.8 Baso % (Auto) 0.7 Lymph # (Auto) 2.0 [place] # (Auto) 0.6 Eos # (Auto) 0.2 Baso # (Auto) 0.1 Abs Immat Gran (auto) 0.17 H Absolute Neuts (auto) 5.7 Absolute Nucleated RBC 0.000 Nucleated RBC % (auto) 0.0 VBG pH 7.36 VBG pCO2 41 VBG pO2 104 VBG HCO3 24 VBG O2 Saturation 99.0 VBG Base Excess -1.2 Anion Gap 19 Estim Creat Clear Calc 66.8 Estimated GFR 49 POC Glucose 386 H* Random Glucose 365 H* Estimat Average Glucose Hemoglobin A1c % Calcium 8.8 Total Bilirubin AST ALT Alkaline Phosphatase Troponin I High Sens C-Reactive Protein Total Protein Albumin Beta-Hydroxybutyrate Urine Color Urine Appearance Urine pH Ur Specific [place] Urine Protein Urine Glucose (UA) Urine Ketones Urine Blood Urine Nitrite Ur Leukocyte Esterase Urine RBC Urine WBC Ur Squamous Epith Cells Urine Bacteria Hyaline Casts Urine Opiates Screen Ur Buprenorphine Scrn Ur Oxycodone Screen Urine Methadone Screen Urine Fentanyl Screen Ur Barbiturates Screen Ur Phencyclidine Scrn Ur Amphetamines Screen U Benzodiazepines Scrn Urine Cocaine Screen U Marijuana (THC) Screen Assessment and Plan (1) DKA (diabetic ketoacidosis): Status: Acute Plan 59M PMH hyperlipidemia, morbid obesity, hypertension, COPD, GERD, chronic back pain presented with polyuria and polydipsia found to have DKA New onset diabetes with diabetic ketoacidosis Anion gap closed, still hyperglycemic Continue basal bolus insulin, monitor BMP and point of care glucose Nutrition eval Diabetes education A1c greater than 14, likely require insulin and oral on discharge COPD Stable, continue fluticasone/salmeterol, umeclidinium Hypertension lisinopril Morbid obesity Weight loss recommended DVT prophylaxis with Lovenox Full code reason for continued hospitalization: Hyperglycemia Quality Stroke Does the patient have a stroke diagnosis?: No VTE Prior VTE?: No VTE Risk Level:: Medical - moderate - high VTE Device Contraindication: Treatment Not Indicated VTE Drug Contraindication: N/A - Med Ordered
--- NOTE | 2024-07-06 10:28 | PHA.MEDREC ---
Addendum entered by Arcadio León RPh 07/06/24 10:48: Reviewed by [facility] Original Note: Pharmacy Consult ? Medication Reconciliation Pharmacy has completed the medication reconciliation. Spoke to patient through rail filler service (Joseph) to confirm med list. Patient was confused and didn't know what medication he takes. Patient had a list in his file from Dr bautista. Utilized claim to confirm med list.
--- NOTE | 2024-07-06 10:41 | PC.NURSE ---
Report given to Monique BENAVIDES in ED OV, plan to transfer.
[2024-07-06 10:46] VITALS: BP 110/68; PULSE 80; RESP 16; TEMP 36.6; O2SAT 91
[2024-07-06 11:54] LABS: Glucose, Whole Blood 310 mg/dL (60-115)
--- NOTE | 2024-07-06 15:48 | MHC.CM.PN ---
pt lives alone has own ride home dc plan homem no servies
[2024-07-06 17:01] LABS: Glucose, Whole Blood 334 mg/dL (60-115)
--- NOTE | 2024-07-06 19:15 | PC.NURSE ---
received report from previous nurse, assume care of pt at this time
[2024-07-06 20:00] VITALS: BP 136/65; PULSE 89; RESP 20; TEMP 36.4; O2SAT 92
[2024-07-06] MEDS: Enoxaparin Sodium 40 MG/0.4 ML SYRINGE SUBCUT (21:05)
[2024-07-06] MEDS: guaiFENesin LA 600 MG TAB.ER.12H PO (21:10)
[2024-07-06 21:18] LABS: Glucose, Whole Blood 273 mg/dL (60-115)
[2024-07-06] MEDS: Melatonin 3 MG TABLET 6 MG PO (23:02)
[2024-07-07 06:00] VITALS: BP 133/68; PULSE 87; RESP 16; TEMP 36.4; O2SAT 94
[2024-07-07] MEDS: Omeprazole 40 MG CAPSULE.DR PO (06:19)
[2024-07-07 06:29] LABS: Hemoglobin 12.7 g/dl (14.0-18.0); Mean Corpuscular HGB Conc 34.3 g/dl (31.0-36.0); Mean Corpuscular Hemoglobin 29.3 pg (27.0-33.0); Mean Corpuscular Volume 85.5 fL (80.0-98.0); Platelet Count 297 X10*3/uL (160-400); Red Blood Count 4.33 X10*6/uL (4.60-5.80); White Blood Count 6.4 X10*3/uL (4.8-10.8)
[2024-07-07 06:35] LABS: Anion Gap 14 (12-20); Blood Urea Nitrogen 17 mg/dL (9-16); Calcium 9.1 mg/dL (8.4-10.2); Carbon Dioxide 25 mmol/L (22-29); Chloride 101 mmol/L (96-108); Creatinine Clr Calc Pharmacy 104.6; Estimated Glomerular Filt Rate > 60; Glucose Fasting 256 mg/dL (60-99); Potassium 3.6 mmol/L (3.3-5.1); Sodium 136 mmol/L (135-145)
--- NOTE | 2024-07-07 07:08 | PC.NURSE ---
report given to Dixon BENAVIDES
[2024-07-07 07:45] LABS: Glucose, Whole Blood 268 mg/dL (60-115)
[2024-07-07] MEDS: guaiFENesin LA 600 MG TAB.ER.12H PO ×2 (08:03→21:15)
[2024-07-07] MEDS: lisinopriL 10 MG TABLET PO (08:03)
[2024-07-07] MEDS: Insulin Lispro 100 UNIT/ML 3 ML VIAL SUBCUT ×4 (08:03→21:29)
[2024-07-07] MEDS: Atorvastatin Calcium 20 MG TABLET PO (08:03)
[2024-07-07] MEDS: Insulin Lispro 100 UNIT/ML 3 ML VIAL 10 UNIT SUBCUT ×4 (08:03→21:29)
--- NOTE | 2024-07-07 08:17 | PC.NURSE ---
pt stated no pain or discomfort, had no complaints. diabetes and insulin education provided along w/ injection edu. pt abd round, semi firm, c/o SOb on exertion at times. channel process plant operator at bedside for med pass, edu and assessment
[2024-07-07 08:22] VITALS: PULSE 83; RESP 18; O2SAT 95
[2024-07-07] MEDS: Fluticasone/Vilanterol 200/25 BLST.W.DEV 1 PUFF INHALE (08:22)
[2024-07-07] MEDS: Tiotropium Bromide 2.5 mcg 1 PUFF/2.5 MCG MIST.INHAL 2 PUFF INHALE (08:22)
--- NOTE | 2024-07-07 11:49 | MHC.CLN ---
RE: CONSULT EDUCATION VIA [facility] INTERRUPTER GIVEN WITH [facility] HANDOUTS ON DIABETIC DIET RECOMMEND OUT PT RD FOLLOW UP FOR FURTHER EDUCATION -HANDOUT GIVEN TO PATIENT WITH LOCAL OUT PT RDS GIVEN SEE TEACHING RECORD
[2024-07-07 12:21] LABS: Glucose, Whole Blood 344 mg/dL (60-115)
--- NOTE | 2024-07-07 12:41 | MHC.EDTECH ---
Assisted patient with personal hygiene. Changed patients linen.
[2024-07-07 13:06] VITALS: BP 117/58; PULSE 94; RESP 20; TEMP 37.3; O2SAT 94
--- NOTE | 2024-07-07 15:57 | P.PNIM_ITS ---
Subjective Subjective Date of Service: 07/07/24 Interval History: No acute issues overnight. Sugars normalizing Review of Systems Denies chest pain Denies shortness of breath Denies nausea vomiting diarrhea Denies fever chills Physical Exam 2 Vital Signs: Vital Signs: Last Vital Signs Temp 99.2 F 07/07/24 13:06 Pulse 94 07/07/24 13:06 Resp 20 07/07/24 13:06 BP 117/58 L 07/07/24 13:06 Pulse Ox 94 07/07/24 13:06 O2 Del Method Room Air 07/07/24 13:06 BMI result Body Mass Index 38.8 Const: Other: Awake alert oriented x3 no acute distress Resp: Other: Clear to auscultation bilaterally no rales rhonchi or wheezes Cardio: Other: No S4; positive S1-S2; no S3 murmurs rubs or gallops GI: Other: Soft nontender nondistended normoactive bowel sounds Extrem: Other: No edema bilaterally Objective Data Active Medications Acetaminophen (Acetaminophen 325 Mg Tablet) 650 mg PO Q6H PRN PRN Reason: Pain, Mild (Pain Scale 1-3), fever or headache Albuterol Sulfate (Albuterol Sulfate 90 Mcg 8 Gm Inhaler) 1 puff INHALE QID PRN PRN Reason: wheezing Atorvastatin Calcium (Atorvastatin Calcium 20 Mg Tablet) 20 mg PO DAILY [facility] Last Admin: 07/07/24 08:03 Dose: 20 mg Documented By: ELISABET Calcium Carbonate (Calcium Carbonate 750 Mg Tab.Chew) 750 mg PO Q4H PRN PRN Reason: Heartburn Enoxaparin Sodium (Enoxaparin Sodium 40 Mg/0.4 Ml Syringe) 40 mg SUBCUT Q24H [facility] Last Admin: 07/06/24 21:05 Dose: 40 mg Documented By: CON Fluticasone/Vilanterol (Fluticasone/Vilanterol 200/25 Blst.W.Dev) 1 puff INHALE RDAILY [facility] Last Admin: 07/07/24 08:22 Dose: 1 puff Documented By: DUSTY Glucose (Glucose Gel 15 Gm Gel..Gram.) 15 gm PO Q15M PRN; Protocol PRN Reason: per Hypoglycemia Standing Ord. Guaifenesin (Guaifenesin La 600 Mg Tab.Er.12h) 600 mg PO BID [facility] Last Admin: 07/07/24 08:03 Dose: 600 mg Documented By: ELISABET Hydroxyzine HCl (Hydroxyzine Hcl 25 Mg Tablet) 25 mg PO BEDTIME PRN PRN Reason: itch Dextrose (D10) 250 mls @ 750 mls/hr IV Q15M PRN; Protocol PRN Reason: per Hypoglycemia Standing Ord. Insulin Glargine (Insulin Glargine,Hum.Rec.Anlog 100 Unit/Ml 10 Ml Vial) 20 unit SUBCUT BEDTIME [facility] Last Admin: 07/06/24 21:05 Dose: 20 unit Documented By: CON Insulin Human Lispro (Insulin Lispro 100 Unit/Ml 3 Ml Vial) 0 unit SUBCUT QIDAS [facility]; Protocol Last Admin: 07/07/24 12:19 Dose: 8 unit Documented By: ELISABET Insulin Human Lispro (Insulin Lispro 100 Unit/Ml 3 Ml Vial) 10 unit SUBCUT QIDAS [facility] Last Admin: 07/07/24 12:19 Dose: 10 unit Documented By: ELISABET Lisinopril (Lisinopril 10 Mg Tablet) 10 mg PO DAILY [facility]; Protocol Last Admin: 07/07/24 08:03 Dose: 10 mg Documented By: ELISABET Magnesium Hydroxide (Milk Of Magnesia 30 Ml Oral.Susp) 30 ml PO DAILY PRN PRN Reason: Constipation Melatonin (Melatonin 3 Mg Tablet) 6 mg PO BEDTIME PRN PRN Reason: Insomnia Last Admin: 07/06/24 23:02 Dose: 6 mg Documented By: CON Omeprazole (Omeprazole 40 Mg Capsule.Dr) 40 mg PO DAILY@0630 [facility] Last Admin: 07/07/24 06:19 Dose: 40 mg Documented By: CON Ondansetron HCl (Ondansetron Hcl 4 Mg/2 Ml Vial) 4 mg IVPUSH Q8H PRN PRN Reason: Nausea and Vomiting Sodium Chloride (0.9 % Sodium Chloride Flush 3 Ml Syringe) 3 ml IVFLUSH QSHIFT [facility] Last Admin: 07/07/24 14:14 Dose: Not Given Documented By: ELISABET Non-Admin Reason: Previously Administered Tiotropium [place] (Tiotropium [place] 2.5 Mcg 1 Puff/2.5 Mcg Mist.Inhal) 2 puff INHALE RDAILY [facility] Last Admin: 07/07/24 08:22 Dose: 2 puff Documented By: DUSTY Labs 07/07/24 05:40 07/07/24 05:40 Labs: Laboratory Results - last 24 hr 07/06/24 07/06/24 07/07/24 16:56 20:59 05:40 MCV 85.5 MCH 29.3 MCHC 34.3 RDW 15.0 Plt Count 297 MPV 10.0 Absolute Nucleated RBC 0.000 Nucleated RBC % (auto) 0.0 Anion Gap 14 Estim Creat Clear Calc 104.6 Estimated GFR > 60 POC Glucose 334 H 273 H Fasting Glucose 256 H Calcium 9.1 07/07/24 07/07/24 07:38 12:12 MCV MCH MCHC RDW Plt Count MPV Absolute Nucleated RBC Nucleated RBC % (auto) Anion Gap Estim Creat Clear Calc Estimated GFR POC Glucose 268 H 344 H Fasting Glucose Calcium Assessment and Plan (1) DKA (diabetic ketoacidosis): Status: Acute (2) Acute hyperglycemia: Status: Acute Plan 59M PMH hyperlipidemia, morbid obesity, hypertension, COPD, GERD, chronic back pain presented with polyuria and polydipsia found to have DKA; new diagnosis for patient 1.New onset diabetes with diabetic ketoacidosis(resloved) -continue glargine 20 units at bedtime. . . Adjust as indicated -continue lispro 10 units subQ before meals and HS accompanied by lispro correctional scale -adjust as indicated 2.COPD -stable and well compensated -continue outpatient therapies 3.Hypertension -acceptable control on current therapies -adjust as indicated Lovenox Full code Requires ongoing therapies for adjustment of insulin to avoid diabetic ketoacidosis. Patient is extremely high risk for outpatient failure Quality Stroke Does the patient have a stroke diagnosis?: No VTE Prior VTE?: No VTE Risk Level:: Medical - moderate - high VTE Device Contraindication: Treatment Not Indicated VTE Drug Contraindication: N/A - Med Ordered
[2024-07-07 16:48] LABS: Glucose, Whole Blood 212 mg/dL (60-115)
[2024-07-07 20:22] VITALS: BP 133/73; PULSE 88; RESP 20; TEMP 36.2; O2SAT 93
[2024-07-07] MEDS: Enoxaparin Sodium 40 MG/0.4 ML SYRINGE SUBCUT (21:15)
[2024-07-07] MEDS: Insulin Glargine,Hum.rec.anlog 100 UNIT/ML 10 ML VIAL 20 UNIT SUBCUT (21:16)
[2024-07-07] MEDS: hydrOXYzine HCL 25 MG TABLET PO (21:17)
[2024-07-07 21:27] LABS: Glucose, Whole Blood 279 mg/dL (60-115)
[2024-07-08] MEDS: 0.9 % Sodium Chloride Flush 3 ML SYRINGE IVFLUSH ×4 (01:15→20:09)
[2024-07-08 01:35] VITALS: BP 119/69; PULSE 84; RESP 18; TEMP 36.2; O2SAT 96
[2024-07-08] MEDS: Omeprazole 40 MG CAPSULE.DR PO (05:46)
[2024-07-08 07:20] VITALS: BP 154/82; PULSE 82; RESP 16; TEMP 36.7; O2SAT 94
[2024-07-08 07:46] LABS: Glucose, Whole Blood 262 mg/dL (60-115)
[2024-07-08] MEDS: lisinopriL 10 MG TABLET PO (07:52)
[2024-07-08] MEDS: Insulin Lispro 100 UNIT/ML 3 ML VIAL SUBCUT ×4 (07:52→20:09)
[2024-07-08] MEDS: Atorvastatin Calcium 20 MG TABLET PO (07:52)
[2024-07-08] MEDS: Insulin Lispro 100 UNIT/ML 3 ML VIAL 10 UNIT SUBCUT ×2 (07:52→11:49)
[2024-07-08] MEDS: guaiFENesin LA 600 MG TAB.ER.12H PO ×2 (07:52→20:08)
[2024-07-08 11:16] LABS: Glucose, Whole Blood 261 mg/dL (60-115)
[2024-07-08] MEDS: Fluticasone/Vilanterol 200/25 BLST.W.DEV 1 PUFF INHALE (12:38)
[2024-07-08] MEDS: Tiotropium Bromide 2.5 mcg 1 PUFF/2.5 MCG MIST.INHAL 2 PUFF INHALE (12:38)
[2024-07-08 12:42] VITALS: PULSE 89; RESP 18; O2SAT 96
[2024-07-08 14:00] VITALS: BP 137/72; PULSE 82; RESP 17; TEMP 36.6; O2SAT 96
--- NOTE | 2024-07-08 15:16 | HO.PM.IMPN ---
Subjective Subjective Date of Service: 07/08/24 Interval History: No acute issues overnight. Sugars improving with therapies Review of Systems Denies chest pain Denies shortness of breath Denies nausea vomiting diarrhea Denies fever chills Physical Exam Vital Signs: Vital Signs: Last Vital Signs Temp 97.9 F 07/08/24 14:00 Pulse 82 07/08/24 14:00 Resp 17 07/08/24 14:00 BP 137/72 07/08/24 14:00 Pulse Ox 96 07/08/24 14:00 O2 Del Method Room Air 07/08/24 14:00 BMI result Body Mass Index 38.8 Const: Other: Awake alert oriented x3 no acute distress Resp: Other: Clear to auscultation bilaterally no rales rhonchi or wheezes Cardio: Other: No S4; positive S1-S2; no S3 murmurs rubs or gallops GI: Other: Soft nontender nondistended normoactive bowel sounds Extrem: Other: No edema bilaterally Objective Data Active Medications Acetaminophen (Acetaminophen 325 Mg Tablet) 650 mg PO Q6H PRN PRN Reason: Pain, Mild (Pain Scale 1-3), fever or headache Albuterol Sulfate (Albuterol Sulfate 90 Mcg 8 Gm Inhaler) 1 puff INHALE QID PRN PRN Reason: wheezing Atorvastatin Calcium (Atorvastatin Calcium 20 Mg Tablet) 20 mg PO DAILY [facility] Last Admin: 07/08/24 07:52 Dose: 20 mg Documented By: RODRIGUEZ Calcium Carbonate (Calcium Carbonate 750 Mg Tab.Chew) 750 mg PO Q4H PRN PRN Reason: Heartburn Enoxaparin Sodium (Enoxaparin Sodium 40 Mg/0.4 Ml Syringe) 40 mg SUBCUT Q24H [facility] Last Admin: 07/07/24 21:15 Dose: 40 mg Documented By: DINO Fluticasone/Vilanterol (Fluticasone/Vilanterol 200/25 Blst.W.Dev) 1 puff INHALE RDAILY [facility] Last Admin: 07/08/24 12:38 Dose: 1 puff Documented By: WYATT Glucose (Glucose Gel 15 Gm Gel..Gram.) 15 gm PO Q15M PRN; Protocol PRN Reason: per Hypoglycemia Standing Ord. Guaifenesin (Guaifenesin La 600 Mg Tab.Er.12h) 600 mg PO BID [facility] Last Admin: 07/08/24 07:52 Dose: 600 mg Documented By: RODRIGUEZ Hydroxyzine HCl (Hydroxyzine Hcl 25 Mg Tablet) 25 mg PO BEDTIME PRN PRN Reason: itch Last Admin: 07/07/24 21:17 Dose: 25 mg Documented By: MORGAN-PHIL Dextrose (D10) 250 mls @ 750 mls/hr IV Q15M PRN; Protocol PRN Reason: per Hypoglycemia Standing Ord. Insulin Glargine (Insulin Glargine,Hum.Rec.Anlog 100 Unit/Ml 10 Ml Vial) 20 unit SUBCUT BEDTIME [facility] Last Admin: 07/07/24 21:16 Dose: 20 unit Documented By: DINO Insulin Human Lispro (Insulin Lispro 100 Unit/Ml 3 Ml Vial) 0 unit SUBCUT QIDACHS [facility]; Protocol Last Admin: 07/08/24 11:48 Dose: 6 unit Documented By: RODRIGUEZ Insulin Human Lispro (Insulin Lispro 100 Unit/Ml 3 Ml Vial) 10 unit SUBCUT QIDAS [facility] Last Admin: 07/08/24 11:49 Dose: 10 unit Documented By: RODRIGUEZ Lisinopril (Lisinopril 10 Mg Tablet) 10 mg PO DAILY [facility]; Protocol Last Admin: 07/08/24 07:52 Dose: 10 mg Documented By: RODRIGUEZ Magnesium Hydroxide (Milk Of Magnesia 30 Ml Oral.Susp) 30 ml PO DAILY PRN PRN Reason: Constipation Melatonin (Melatonin 3 Mg Tablet) 6 mg PO BEDTIME PRN PRN Reason: Insomnia Last Admin: 07/06/24 23:02 Dose: 6 mg Documented By: CON Omeprazole (Omeprazole 40 Mg Capsule.Dr) 40 mg PO DAILY@0630 [facility] Last Admin: 07/08/24 05:46 Dose: 40 mg Documented By: SETH Ondansetron HCl (Ondansetron Hcl 4 Mg/2 Ml Vial) 4 mg IVPUSH Q8H PRN PRN Reason: Nausea and Vomiting Sodium Chloride (0.9 % Sodium Chloride Flush 3 Ml Syringe) 3 ml IVFLUSH QSHIFT [facility] Last Admin: 07/08/24 07:54 Dose: 3 ml Documented By: RODRIGUEZ Tiotropium [place] (Tiotropium [place] 2.5 Mcg 1 Puff/2.5 Mcg Mist.Inhal) 2 puff INHALE RDAILY [facility] Last Admin: 07/08/24 12:38 Dose: 2 puff Documented By: WYATT Labs 07/07/24 05:40 07/07/24 05:40 Labs: Laboratory Results - last 24 hr 07/07/24 07/07/24 07/08/24 16:35 21:22 07:23 POC Glucose 212 H 279 H 262 H 07/08/24 11:07 POC Glucose 261 H Assessment and Plan (1) DKA (diabetic ketoacidosis): Status: Acute (2) Asthma-COPD overlap syndrome: Status: Acute Plan 59M PMH hyperlipidemia, morbid obesity, hypertension, COPD, GERD, chronic back pain presented with polyuria and polydipsia found to have DKA; new diagnosis for patient 1.New onset diabetes with diabetic ketoacidosis(resloved) -continue glargine 20 units at bedtime. . . At 20 units in a.m. and -lispro correctional scale -increase Jardiance to 25 mg daily -adjust as indicated 2.COPD -stable and well compensated -continue outpatient therapies 3.Hypertension -acceptable control on current therapies -adjust as indicated Lovenox Full code Requires ongoing therapies for adjustment of insulin to avoid diabetic ketoacidosis. Patient is extremely high risk for outpatient failure Quality Stroke Does the patient have a stroke diagnosis?: No VTE Prior VTE?: No VTE Risk Level:: Medical - moderate - high VTE Device Contraindication: Treatment Not Indicated VTE Drug Contraindication: N/A - Med Ordered
[2024-07-08 16:16] LABS: Glucose, Whole Blood 216 mg/dL (60-115)
[2024-07-08] MEDS: Empagliflozin 10 MG TABLET PO (16:49)
[2024-07-08 19:22] VITALS: BP 129/80; PULSE 90; RESP 20; TEMP 36.5; O2SAT 92
[2024-07-08 19:28] LABS: Glucose, Whole Blood 175 mg/dL (60-115)
[2024-07-08] MEDS: hydrOXYzine HCL 25 MG TABLET PO (20:08)
[2024-07-08] MEDS: Insulin Glargine,Hum.rec.anlog 100 UNIT/ML 10 ML VIAL 20 UNIT SUBCUT (20:11)
[2024-07-08] MEDS: Enoxaparin Sodium 40 MG/0.4 ML SYRINGE SUBCUT (20:11)
[2024-07-09 03:50] VITALS: O2SAT 85; O2SAT 94
[2024-07-09 03:51] VITALS: BP 121/63; PULSE 90; RESP 18; TEMP 37.1; O2SAT 97
--- NOTE | 2024-07-09 04:00 | MHC.PIE ---
p; o2 sat 85 on ra while asleep. note; o2 sat up in 97 after pt woke up. ? need cpap? i; o2 2l nc placed while pt asleep i; dr lin notified e; will cont to monitor
[2024-07-09] MEDS: Omeprazole 40 MG CAPSULE.DR PO (06:00)
[2024-07-09 07:19] VITALS: BP 134/83; PULSE 86; RESP 16; TEMP 36.5; O2SAT 94
[2024-07-09 07:29] LABS: Glucose, Whole Blood 172 mg/dL (60-115)
[2024-07-09 08:02] VITALS: PULSE 86; RESP 16; O2SAT 98
[2024-07-09] MEDS: Fluticasone/Vilanterol 200/25 BLST.W.DEV 1 PUFF INHALE (08:02)
[2024-07-09] MEDS: Tiotropium Bromide 2.5 mcg 1 PUFF/2.5 MCG MIST.INHAL 2 PUFF INHALE (08:02)
[2024-07-09] MEDS: Insulin Lispro 100 UNIT/ML 3 ML VIAL SUBCUT ×2 (08:41→11:46)
[2024-07-09] MEDS: Insulin Glargine,Hum.rec.anlog 100 UNIT/ML 10 ML VIAL 20 UNIT SUBCUT (08:42)
[2024-07-09] MEDS: Atorvastatin Calcium 20 MG TABLET PO (08:43)
[2024-07-09] MEDS: Empagliflozin 10 MG TABLET PO (08:44)
[2024-07-09 08:45] VITALS: BP 135/76
[2024-07-09] MEDS: guaiFENesin LA 600 MG TAB.ER.12H PO (08:45)
[2024-07-09] MEDS: lisinopriL 10 MG TABLET PO (08:45)
[2024-07-09] MEDS: 0.9 % Sodium Chloride Flush 3 ML SYRINGE IVFLUSH (09:05)
[2024-07-09 11:23] LABS: Glucose, Whole Blood 229 mg/dL (60-115)
--- NOTE | 2024-07-09 11:50 | PM.DS ---
DS: Providers Provider Date of Service: 07/09/24 Date of admission: 07/06/24 01:31 Date of discharge: 07/09/24 Primary care physician: Scot Mathews MD DS: Diagnosis Discharge Diagnosis (1) DKA (diabetic ketoacidosis): Status: Acute (2) Asthma-COPD overlap syndrome: Status: Acute DS: Summary Hospital Course Hospital Course: 59-year-old male with pertinent history of mixed hyperlipidemia, morbid obesity, hypertension, COPD not on home oxygen, lower extremity edema on Lasix, gastroesophageal reflux disease, chronic back pain who presents to the emergency department for evaluation of polyuria and polydipsia. Patient states he has had increased thirst and increased urination for the last 2 weeks. He was feeling dizzy and lightheaded on the day of presentation so went to [facility]. He was told that his blood sugar is very high and he was sent to the ER for further evaluation. No fever, chills, chest pain, palpitations, shortness of breath, abdominal pain, changes in urinary or bowel habits. No history of diabetes mellitus in the past. Does have family history of diabetes mellitus. Hopsital COurse Seen in the ER noted to have mild gap that was closed with IV fluids and IV insulin. Patient was admitted to the floor and maintained on lispro pulse dosing as well as Lantus 20 units twice daily. After 24 hours her sugars were maintained between 200-300 and Jardiance 10 mg was added. Fasting sugar on the day of discharge was 179. He has been given the insulin pens and instructed to use 20 units at bedtime in in the morning and [facility] will assist in teaching and monitoring sugars. He will take Farxiga daily. He has also been counseled on his diet which mainly consisted of white rice and beans. He voiced understanding with the help of an parts interpreter. At this point in time he is medically acceptable for discharge Time Attestation Discharge Coordination Time (in mins): 35 Quality: Safe Use of Opioids Does Pt have an Active Cancer Diagnosis on the Problem List?: No Quality: Stroke Does the patient have a stroke diagnosis?: No Physical Exam Vital Signs: Vital Signs: Last Vital Signs Temp 97.7 F 07/09/24 07:19 Pulse 86 07/09/24 08:02 Resp 16 07/09/24 08:02 BP 135/76 07/09/24 08:45 Pulse Ox 94 11/15/24 07:19 O2 Del Method Room Air 07/09/24 07:19 O2 Flow Rate 2 07/09/24 03:50 BMI result Body Mass Index 38.8 Const: Other: Awake alert oriented x3 no acute distress Resp: Other: Clear to auscultation bilaterally no rales rhonchi or wheezes Cardio: Other: No S4; positive S1-S2; no S3 murmurs rubs or gallops GI: Other: Soft nontender nondistended normoactive bowel sounds Extrem: Other: No edema bilaterally DS: Data Data Completed and Pending Completed studies during hospitalization [Text1]: Procedures Replacement of Right Hip Joint with Synthetic Substitute, Uncemented, Open Approach (08/26/23) Labs on day of discharge: Laboratory Results - last 24 hr 07/08/24 07/08/24 07/09/24 16:03 19:24 07:23 POC Glucose 216 H 175 H 172 H 07/09/24 11:19 POC Glucose 229 H Discharge Plan Discharge Anticipated Discharge Date/Time: 07/09/24 11:32 Patient Disposition: Home Health Service Discharge Diagnosis: New onset diabetes Referrals: [facility] [Other] - 1 Day ([facility] will call you to schedule nursing visits) Name,MD Scot [Primary Care Provider] - 1 Week Discharge Medications: New insulin glargine [Lantus U-100 Insulin] 100 unit/mL Solution 20 unit subcut Q12H Qty: 15 0RF Jardiance 10 mg Tablet 10 mg PO DAILY Qty: 30 1RF (DME) FreeStyle Lite Strips Strip Qty: 100 0RF Rx Instructions: Test four times a day or as directed. (DME) blood-glucose meter [FreeStyle Lite Meter] Kit Qty: 1 0RF Rx Instructions: As Directed alcohol swabs Pads, Medicated 1 pad TOPICAL QIDACHS Qty: 100 0RF Rx Instructions: Use four times a day or as directed. (DME) pen needle, diabetic 32 gauge x 1/4 needle Qty: 100 0RF Rx Instructions: Use four times a day or as directed. (DME) lancets [FreeStyle Lancets] 28 gauge misc Qty: 100 0RF Rx Instructions: Test four times a day or as directed. Continued (DME) walker Misc See Rx Instructions .MEDSUPPLY Qty: 1 0RF Rx Instructions: Folding Front wheeled walker docusate sodium 100 mg Capsule 100 mg PO BID 30 Days Qty: 60 0RF albuterol sulfate [Ventolin HFA] 90 mcg/actuation HFA aerosol inhaler 1 - 2 puff inhalation QID PRN (Reason: wheezing) hydroxyzine pamoate 25 mg capsule 25 mg PO BEDTIME PRN (Reason: itch) diclofenac sodium 1 % Gel 2 g TOPICAL QID PRN (Reason: Pain) Rx Instructions: apply to single elbow, wrist or hand; for hand includes palm/fingers/back of hand acetaminophen 650 mg tablet extended release 650 mg PO Q8H PRN (Reason: mild pain) omeprazole 40 mg capsule,delayed release(DR/EC) 40 mg PO DAILY@0630 furosemide 80 mg tablet 80 mg PO DAILY Incruse Ellipta 62.5 mcg/actuation blister with device 1 inh inhalation DAILY atorvastatin 20 mg tablet 20 mg PO DAILY lisinopril 10 mg tablet 10 mg PO DAILY methocarbamol 750 mg tablet 750 mg PO TID MDD 3 PRN (Reason: pain) 30 Days Qty: 90 8RF nicotine (polacrilex) 4 mg lozenge 4 mg PO Q4H PRN (Reason: Nicotine Cravings) fluticasone propion-salmeterol [Advair Diskus] 500-50 mcg/dose blister with device 1 inh inhalation BID Qty: 60 6RF guaifenesin 600 mg tablet extended release 12hr 600 mg PO BID Qty: 14 0RF Rx Instructions: end date 07/07/24 Discontinued levofloxacin 500 mg tablet 500 mg PO DAILY Qty: 7 0RF Rx Instructions: End date 07/07/24 Discharge Orders: Discharge Order (Routine); Ordered 07/09/24 Ordered By: Julius Reyes Diet: Diabetic diet Activity on Discharge: As tolerated Stand Alone Forms: Patient Portal Discharge page Print Language: Romanian Care Plan Goals: Continue all your medicines as taken before the hospital. Farxiga has been added; 1 pill daily. You have been given the supplies to check his sugar and the insulin pen. The visiting nurses will be in in the morning to start to teach you how to use these Health Concerns: Attempt to modify her diet and include exercise on a daily basis Plan of Treatment: Further adjustments as per your PCP. Call for next available appointment Assessment: See discharge summary
--- NOTE | 2024-07-09 11:53 | W.MHC.F2F ---
Service Date Service Date: 07/09/24 Encounter Date of encounter: 07/09/24 Encounter: Acute hospitalization Reasons for Services Signs and symptoms assessed: Diabetic teaching and monitoring of blood sugar Reason for care home: diabetic teaching, medication management and teach disease management Homebound: Leaving the home is medically contraindicated at this time without the asist of a device and/or another person due th the listed conditions above and below. Reason homebound: unsteady gait / fall risk and unable to drive Certification: Based on the above findings, I certify that this patient is confined to the home and needs intermittent care home care, physical therapy and/or speech therapy, or continues to need occupational therapy. The patient is under my care, and I have initiated the establishment of the plan of care. The patient will be followed by a physician who will periodically review the plan of care. Time Spent With Patient Time: Total time managing care of this patient today ____ minutes.
--- NOTE | 2024-07-09 12:05 | MHC.CM.PN ---
Per MD rounds patient medically cleared for dc home new [facility] for DM teaching/management. CM met with patient at bedside and patient is agreeable to plan. RN will provide insulin teaching priot to dc and [facility] will see patient tomorrow for SOC. Patient's friend will provide transport home at 2:30pm. RN aware.
== END 2024-07-09 13:17 | disposition home health service (06) | DRG 420 ==
LOC: HO.ED 07-06 01:31 → HO.EDOVER 07-06 01:45 → HO.S3 07-08 00:21
PROVIDERS: Emergency Medicine; Internal Medicine; Admitting Provider Student in an Organized Health Care Education/Training Program; Emergency Provider Emergency Medicine; PCP Internal Medicine Geriatric Medicine; Visit Provider Hospitalist
DX: E11.10 Type 2 diabetes mellitus with ketoacidosis without coma (principal); N17.9 Acute kidney failure, unspecified; F17.210 Nicotine dependence, cigarettes, uncomplicated; J44.9 Chronic obstructive pulmonary disease, unspecified; I10 Essential (primary) hypertension; E78.2 Mixed hyperlipidemia; K21.9 Gastro-esophageal reflux disease without esophagitis; E66.01 Morbid (severe) obesity due to excess calories; Z68.38 Body mass index [BMI] 38.0-38.9, adult; G89.29 Other chronic pain; E86.0 Dehydration; M54.9 Dorsalgia, unspecified; Z71.6 Tobacco abuse counseling; Z79.51 Long term (current) use of inhaled steroids; Z79.899 Other long term (current) drug therapy
CPT/HCPCS: 36415; 71045; 80048; 80053; 80307; 81001; 82010; 82803; 82947; 83036; 84484; 85025; 85027; 86140; 93005; 94640; 99285; J1650; J7120

== ENCOUNTER → 2024-07-05 19:09 | Outpatient (BNV) | payer MEDICAID, SELFPAY | PROVIDERS: Admitting Provider Student in an Organized Health Care Education/Training Program; Emergency Provider Emergency Medicine; PCP Internal Medicine Geriatric Medicine; Visit Provider Internal Medicine Cardiovascular Disease | DX: R42 Dizziness and giddiness (principal) | CPT/HCPCS: 93010 ==

== ENCOUNTER → 2024-07-06 01:31 | Outpatient (BNV) | payer MEDICAID, SELFPAY | PROVIDERS: Admitting Provider Student in an Organized Health Care Education/Training Program; Emergency Provider Emergency Medicine; PCP Internal Medicine Geriatric Medicine; Visit Provider Student in an Organized Health Care Education/Training Program | DX: E11.10 Type 2 diabetes mellitus with ketoacidosis without coma (principal); J44.89 Other specified chronic obstructive pulmonary disease | CPT/HCPCS: 99223; 99232; 99239; 99499; G0180 ==

== ENCOUNTER 2024-07-30 16:01 | Outpatient (REF) | payer MEDICAID, SELFPAY ==
[2024-07-30 18:09] LABS: Creatinine Urine 122.34 mg/dL; Microalbum/Creatinine Ratio Ur 11.4 ug/mg cr (<30)
[2024-07-30 18:11] LABS: Anion Gap 13 (12-20); Blood Urea Nitrogen 21 mg/dL (9-16); Calcium 9.6 mg/dL (8.4-10.2); Carbon Dioxide 25 mmol/L (22-29); Chloride 104 mmol/L (96-108); Cholesterol 237 mg/dL (<200); Estimated Glomerular Filt Rate 50; Glucose Random 97 mg/dL (60-115); HDL Cholesterol 30 mg/dL (>40); LDL Cholesterol Calculated 140 mg/dL (<100); Sodium 138 mmol/L (135-145); Triglycerides 339 mg/dL (<150)
== END 2024-07-30 16:02 | disposition home or self-care (01) ==
LOC: HO.HHCL 16:01
PROVIDERS: Visit Provider Nurse Practitioner Family
DX: E11.9 Type 2 diabetes mellitus without complications (principal); Z79.899 Other long term (current) drug therapy
CPT/HCPCS: 36415; 80048; 80061; 82043; 82570

== ENCOUNTER 2024-08-05 10:59 | Outpatient (REF) | payer MEDICAID, SELFPAY ==
--- NOTE | ~2024-08-05 | US_ITS ---
EXAMINATION: ULTRASOUND RIGHT SHOULDER CLINICAL INDICATION: Painless mass with rapid increase in size over the past 2 weeks. COMPARISON: CT chest 08/13/2023. TECHNIQUE: High frequency linear ultrasound transducer was used to examine the area of clinical concern. FINDINGS: There is an isoechoic mass with minimal vascularity seen measuring 5.3 x 1.7 x 5.2 cm. Echogenicity characteristics are suggestive of a lipoma. No other masses or fluid collections are seen. US/US extremity nonvascular IMPRESSION: Probable lipoma. If a diagnosis of absolute certainty is needed, MRI would be the exam of choice. Electronically signed by: Rk Gutierrez MD 08/06/2024 09:20 AM ATUL
== END 2024-08-05 11:00 | disposition home or self-care (01) ==
LOC: HO.US 10:59
PROVIDERS: Visit Provider Nurse Practitioner
DX: M79.89 Other specified soft tissue disorders (principal)
CPT/HCPCS: 76882

== ENCOUNTER 2024-08-11 07:57 | Outpatient (AMB) | payer MEDICAID, SELFPAY ==
[2024-08-11 08:31] VITALS: BP 138/77; PULSE 88; O2SAT 95; BMI 37.9
--- NOTE | 2024-08-11 08:31 | A.OFFVIS_ITS ---
Vital Signs 08/11/24 08:31 Height 5 ft 8 in Weight 249 lb 1.957 oz BMI 37.9 BP 138/77 Blood Pressure Location Rt brachial Position Sitting Pulse 88 Pulse Source Doppler Pulse Oximetry (%) 95 Oxygen Delivery Method Room Air Intake Visit Reasons: COPD Electrotyper Helper Required: Yes Electrotyper Helper Name: Radha Arellano Reyes Allergies No Known Allergies Allergy (Verified 08/11/24 08:35) HPI HPI COPD: Details: 59-year-old gentleman, recent 60 pack-year smoker, with underlying diastolic dysfunction, now followed for moderate asthma/COPD overlap syndrome, pulmonary component to dyspnea, environmental allergies, and pulmonary nodules. He has been using Advair, Incruse, and albuterol MDI with suboptimal control of his symptoms. He complains of mild bronchitic exacerbation. He has been previously using Lasix at 80 mg daily with good control of his orthopnea, however his primary care recently has started. He completed his immunologic workup that shows significant allergic component to his symptoms. He was approved for Dupixent, however he has not started it yet. [facility] Medical History (Updated 08/11/24 @ 08:47 by Russ Quiñonez MD) Asthma-COPD overlap syndrome DKA (diabetic ketoacidosis) Acute kidney injury DJD (degenerative joint disease) Back pain Morbid obesity Umbilical hernia, incarcerated Atypical chest pain COPD (chronic obstructive pulmonary disease) Tobacco abuse disorder Hyperlipidemia HTN (hypertension) Osteoarthritis of right hip Surgical History (Updated 07/17/24 @ 00:03 by Heidy Mulligan) History of umbilical hernia repair (~06/18/24) Status post total hip replacement, right Family History Mother Diabetes Hypertension Heart attack Father Hypertension Heart attack Social History Household Members: None Household Members Other:: rents a room in a house Housing: Apartment Housing Other:: Rents a room Are you a primary care program resident to a significant other at home: No Do you presently have visiting nurse or other home services: No Alcohol intake: never Patient Tobacco Use Status: Current everyday Tobacco user Tobacco use type: Cigarette Cigarettes Per Day: 5 Years Smoked: 25 e-Cigarette/Vaping Use: Never Used Second Hand Smoke Exposure: No service: No Review of Systems Const Denies daytime sleepiness, Denies excessive sweating, Denies fatigue, Denies fever(s), Denies lethargy, Denies malaise, Denies night sweats, Denies snoring and Denies weight loss Eyes Denies blurry vision and Denies itchy eyes ENT Denies nasal congestion, Denies post nasal drip, Denies sinus pain, Denies sinus pressure and Denies other ( Thrush) Card Denies chest pain, Denies pedal edema, Denies dyspnea, Denies orthopnea and Denies paroxysmal nocturnal dyspnea Resp Denies cough, Denies hemoptysis, Denies excessive phlegm production, Denies dyspnea, Denies snoring and Denies wheezing GI Denies abdominal pain and Denies heartburn Musc Denies myalgias, Denies arthralgias and Denies joint swelling Skin/Breast Denies rash Neuro Denies memory loss and Denies seizure-like activity Psych Denies abnormal sleep pattern, Denies anxiety and Denies memory loss Endo Denies excessive sweating, Denies fatigue and Denies heat intolerance Jorden/Lymph Denies easy bruising Aller/Immun Denies itchy eyes, Denies seasonal rhinorrhea and Denies wheezing Physical Exam Vital Signs: Last Vital Signs Pulse 88 08/11/24 08:31 BP 138/77 08/11/24 08:31 Pulse Ox 95 08/11/24 08:31 Oxygen Delivery Method Room Air 08/11/24 08:31 BMI result Body Mass Index 37.9 Const General: no acute distress and alert Nutritional Appearance: obese Orientation/consciousness: Other orientation findings ( oriented) HEENT Head: Yes atraumatic Eyes General: appearance normal, both eyes and all related structures Sclerae: sclerae normal EOM: EOMs intact bilaterally Neck Neck: Yes supple Lymphatic: no lymphadenopathy noted Resp Effort & Inspection: normal respiratory effort and no use of accessory muscles Auscultation: clear to auscultation bilaterally Cardio Rate: regular rate Rhythm: regular rhythm Heart sounds: no gallops, no murmurs and no rubs Skin General skin exam: other ( warm) Extrem General: No clubbing, No cyanosis and No edema Assessment & Plan Assessment & Plan (1) Asthma-COPD overlap syndrome: Code(s): J44.89 - Other specified chronic obstructive pulmonary disease Category: Medical Plan: Reasonable, but still suboptimal control on Advair, Incruse, and albuterol MDI. Has been approved, however has not started Dupixent yet. Expect to improve on Dupixent. (2) Pulmonary nodules: Code(s): R91.8 - Other nonspecific abnormal finding of lung field Category: Medical Plan: Follow-up CT chest is pending. (3) Environmental allergies: Code(s): Z91.09 - Other allergy status, other than to drugs and biological substances Category: Medical Plan: Expect to improve on Dupixent. Coding Level of Care Code Est Pt Level 4 (08505) Complex EM visit Add On G2211 Diagnoses Asthma-COPD overlap syndrome J44.89 Pulmonary nodules R91.8 Environmental allergies Z91.09
== END 2024-08-11 08:46 | disposition home or self-care (01) ==
PROVIDERS: PCP Internal Medicine Geriatric Medicine; Visit Provider Internal Medicine Pulmonary Disease
DX: J44.89 Other specified chronic obstructive pulmonary disease (principal); R91.8 Other nonspecific abnormal finding of lung field; Z91.09 Other allergy status, other than to drugs and biological substances
CPT/HCPCS: 99214

== ENCOUNTER → 2024-08-11 07:57 | Outpatient (BNVA) | payer MEDICAID, SELFPAY | PROVIDERS: PCP Internal Medicine Geriatric Medicine; Visit Provider Internal Medicine Pulmonary Disease | DX: J44.89 Other specified chronic obstructive pulmonary disease (principal); Z91.09 Other allergy status, other than to drugs and biological substances; R91.8 Other nonspecific abnormal finding of lung field | CPT/HCPCS: 99212 ==

== ENCOUNTER 2024-08-12 14:00 | Outpatient (REF) | payer MEDICAID, SELFPAY | END 2024-08-12 14:01 | disposition home or self-care (01) | LOC: HO.CT 14:00 | PROVIDERS: PCP Internal Medicine Geriatric Medicine; Visit Provider Internal Medicine Pulmonary Disease | DX: R91.8 Other nonspecific abnormal finding of lung field (principal) | CPT/HCPCS: 71250 ==

== ENCOUNTER → 2024-08-12 14:02 | Outpatient (BNV) | payer MEDICAID, SELFPAY | PROVIDERS: PCP Internal Medicine Geriatric Medicine; Visit Provider Radiology Diagnostic Radiology | DX: R91.8 Other nonspecific abnormal finding of lung field (principal) | CPT/HCPCS: 71250 ==

== ENCOUNTER 2024-08-23 09:56 | Outpatient (AMB) | payer MEDICAID, SELFPAY ==
[2024-08-23 11:07] VITALS: BMI 37.9
--- NOTE | 2024-08-23 11:07 | MHC.OFFVIS ---
Vital Signs 08/23/24 11:07 Height 5 ft 8 in Weight 249 lb 1.957 oz BMI 37.9 Intake Visit Reasons: Lipoma on shoulder Intake Note: This patient presents for lipoma of shoulder. Pt c/o; reports large Lipoma right shoulder. Jig Boring Machine Operator For Metal Required: Yes Jig Boring Machine Operator For Metal Language: Skating Carhop Services: Jig Boring Machine Operator For Metal Present Jig Boring Machine Operator For Metal Name: Barbi Information Interpreted: non-clinical & clinical Accompanied by: Self / Same As Patient Allergies No Known Allergies Allergy (Verified 08/23/24 11:33) Medication List - Last Reconciled 08/23/24 by Cesar Humphries MD acetaminophen ER 650 mg PO Q8H PRN albuterol sulfate 90 mcg/actuation (Ventolin HFA) 1 - 2 puffs inhalation QID PRN alcohol swabs 1 pad topical QIDACHS atorvastatin 20 mg PO DAILY blood sugar diagnostic (FreeStyle Lite Strips) Test four times a day or as directed. blood-glucose meter (FreeStyle Lite Meter kit) As Directed diclofenac sodium 1% 2 grams topical QID PRN docusate sodium 100 mg PO BID 30 days dupilumab (Dupixent) 300 mg (2 mL) subcut Q2W empagliflozin (Jardiance) 10 mg PO DAILY fluticasone propion-salmeterol 500-50 mcg/dose (Advair Diskus) 1 inh inhalation BID furosemide 80 mg PO DAILY guaifenesin ER 600 mg PO BID hydroxyzine pamoate 25 mg PO BEDTIME PRN insulin glargine (Lantus U-100 Insulin) 20 units (0.2 mL) subcut Q12H lancets (FreeStyle Lancets) Test four times a day or as directed. lisinopril 10 mg PO DAILY methocarbamol 750 mg PO TID PRN 30 days MDD 3 nicotine (polacrilex) 4 mg PO Q4H PRN omeprazole 40 mg PO DAILY@0630 pen needle, diabetic Use four times a day or as directed. umeclidinium 62.5 mcg/actuation (Incruse Ellipta) 1 inh inhalation DAILY walker Folding Front wheeled walker HPI HPI Lipoma on shoulder: Details: He is here because of a lipoma in the right shoulder. He says that he has had this mass for several months. He says that this has been increasing in size. He denies any drainage or skin changes [facility] Medical History (Updated 08/23/24 @ 11:41 by Cesar Humphries MD) Lipoma of right shoulder Asthma-COPD overlap syndrome DKA (diabetic ketoacidosis) Acute kidney injury DJD (degenerative joint disease) Back pain Morbid obesity Umbilical hernia, incarcerated Atypical chest pain COPD (chronic obstructive pulmonary disease) Tobacco abuse disorder Hyperlipidemia HTN (hypertension) Osteoarthritis of right hip Surgical History History of umbilical hernia repair (~06/18/24) Status post total hip replacement, right Family History Mother Diabetes Hypertension Heart attack Father Hypertension Heart attack Social History Household Members: None Household Members Other:: rents a room in a house Housing: Apartment Housing Other:: Rents a room Are you a primary rn home care to a significant other at home: No Do you presently have visiting nurse or other home services: No Alcohol intake: never Patient Tobacco Use Status: Current everyday Tobacco user Tobacco use type: Cigarette Cigarettes Per Day: 5 Years Smoked: 25 e-Cigarette/Vaping Use: Never Used Second Hand Smoke Exposure: No service: No Review of Systems Const Denies chills and Denies fever(s) Card Denies chest pain and Reports dyspnea on exertion Resp Denies cough and Reports dyspnea on exertion GI Denies abdominal pain Physical Exam Vital Signs: BMI result Body Mass Index 37.9 Const General: comfortable and no acute distress Nutritional Appearance: obese Chest Other: Right shoulder with note of a large lipoma, well-defined, about 5 cm in widest dimension Resp Effort & Inspection: normal respiratory effort Cardio Rate: regular rate GI Palpation (GI): Soft to palpation, not firm and nontender Assessment & Plan Assessment & Plan (1) Lipoma of right shoulder: Code(s): D17.21 - Benign lipomatous neoplasm of skin and subcutaneous tissue of right arm Category: Medical Plan: He wants this removed in view of the large size and he says that this has been bothering him. I explained the technique of excision under local anesthesia. I reviewed the risks including but not limited to bleeding, infections, poor healing, pain, as well as the benefits and alternatives. He says he understands and wants to proceed This will be done in the office on his next visit. Coding Level of Care Code Est Pt Level 3 (74077) Diagnoses Lipoma of right shoulder D17.21
== END 2024-08-23 11:45 | disposition home or self-care (01) ==
PROVIDERS: PCP Internal Medicine Geriatric Medicine; Visit Provider Surgery
DX: D17.21 Benign lipomatous neoplasm of skin and subcutaneous tissue of right arm (principal)
CPT/HCPCS: 99213

== ENCOUNTER → 2024-08-23 09:56 | Outpatient (BNVA) | payer MEDICAID, SELFPAY | PROVIDERS: PCP Internal Medicine Geriatric Medicine; Visit Provider Surgery | DX: D17.21 Benign lipomatous neoplasm of skin and subcutaneous tissue of right arm (principal) | CPT/HCPCS: 99212 ==

== ENCOUNTER 2024-09-02 13:11 | Outpatient (AMB) | payer MEDICAID, SELFPAY ==
[2024-09-02 13:34] VITALS: BMI 37.7
--- NOTE | 2024-09-02 13:34 | MHC.OFFVIS ---
Vital Signs 09/02/24 13:34 Height 5 ft 8 in Weight 248 lb BMI 37.7 Intake Visit Reasons: Lipoma on shoulder Intake Note: Office procedure: excision Lipoma on shoulder Mechanical Energy Engineer Required: Yes Mechanical Energy Engineer Language: Other Spatial Scientist Name: Barbi Information Interpreted: non-clinical & clinical Accompanied by: Self / Same As Patient Allergies No Known Allergies Allergy (Verified 09/02/24 13:36) HPI HPI Lipoma on shoulder: Details: He is here for excision of a large lipoma from the right shoulder. [facility] Medical History Lipoma of right shoulder Asthma-COPD overlap syndrome DKA (diabetic ketoacidosis) Acute kidney injury DJD (degenerative joint disease) Back pain Morbid obesity Umbilical hernia, incarcerated Atypical chest pain COPD (chronic obstructive pulmonary disease) Tobacco abuse disorder Hyperlipidemia HTN (hypertension) Osteoarthritis of right hip Surgical History History of umbilical hernia repair (~06/18/24) Status post total hip replacement, right Family History Mother Diabetes Hypertension Heart attack Father Hypertension Heart attack Social History Household Members: None Household Members Other:: rents a room in a house Housing: Apartment Housing Other:: Rents a room Are you a primary patient care coordinator to a significant other at home: No Do you presently have visiting nurse or other home services: No Alcohol intake: never Patient Tobacco Use Status: Current everyday Tobacco user Tobacco use type: Cigarette Cigarettes Per Day: 5 Years Smoked: 25 e-Cigarette/Vaping Use: Never Used Second Hand Smoke Exposure: No service: No Physical Exam Vital Signs: BMI result Body Mass Index 37.7 Office Procedures Excision Details: He was in reclining position. The area of the lipoma on the right shoulder was prepped and draped. Lidocaine 1% was used for local anesthesia. I made an incision on the skin overlying the lipoma with a blade 15. This was carried down through the full-thickness of the skin and subcutaneous fat with the blade until was able to visualize the lipoma. The lipoma was sharply dissected off of the rest of the subcutaneous layer using fine scissors until it was completely delivered and sent as a specimen. The lipoma measured about 6 cm in diameter. This was lobulated There was note of good hemostasis. I closed the incision with full-thickness nylon 3-0 interrupted sutures. Dressings were applied. The procedure was completed. He tolerated the procedure well. There were no immediate complications. 14033-bwqsr/arms/legs >4cm Procedure code (CPT) selection complete Assessment & Plan Assessment & Plan (1) Lipoma of right shoulder: Code(s): D17.21 - Benign lipomatous neoplasm of skin and subcutaneous tissue of right arm Category: Medical Plan: Excision was done in the office. He was given wound care instructions. He will be seen in the office in about 2 weeks for removal of sutures. Coding Level of Care Code Procedure Only Diagnoses Lipoma of right shoulder D17.21 CPT Codes Trunk/Arms/Legs - CPT: 09534-eldyr/arms/legs >4cm ([id number])
== END 2024-09-02 14:15 | disposition home or self-care (01) ==
PROVIDERS: PCP Internal Medicine Geriatric Medicine; Visit Provider Surgery
DX: D17.21 Benign lipomatous neoplasm of skin and subcutaneous tissue of right arm (principal)
CPT/HCPCS: 23071

== ENCOUNTER 2024-09-02 13:11 | Outpatient (REF) | payer MEDICAID, SELFPAY | END 2024-09-02 13:12 | disposition home or self-care (01) | LOC: HO.LNP 13:11 | PROVIDERS: PCP Internal Medicine Geriatric Medicine; Visit Provider Surgery | DX: D17.21 Benign lipomatous neoplasm of skin and subcutaneous tissue of right arm (principal) | CPT/HCPCS: 23071; 88304 ==

== ENCOUNTER 2024-09-24 11:01 | Outpatient (REF) | payer MEDICAID, SELFPAY ==
--- OUTSIDE RECORDS SUMMARY | 2024-09-24 11:52 | XMS_ITS | Encounter Summary ---
Author Organization [employer] Address [address] [facility] [address] [place] [address] Care Team Providers Care Aircraft Electrical Systems Specialist Name Role Phone NameScot MD Primary Care Provider [phone] Puia, Alicia PharmD Unavailable Puia, Alicia PharmD Unavailable Reason for Referral * Consultation (Routine) - Authorized Specialty Diagnoses / Procedures Referred By Contminerva t Referred To Contact Pharmacy Diagnoses New onset type 2 diabetes mellitus ([facility]) Primary hypertension NameScot MD [address] [place] [address] Phone: tel: fax: Referral ID Status Reason Start Date Expiration Date Visits Requested Visits Authorized [id number] Authorized Consult and Treat 09/13/2024 09/13/2025 6 6 Reason for Visit * Reason Onset Date Comments Appointment Request 09/01/2024 Encounter Details Date Type Department Care Team ([facility] st Contact Info) Description 09/01/2024 Telephone [facility] [address] [place], [place] [phone] Scot Gray MD [address] [place], [place] [phone] Appointment Request Social History Tobacco Use Types Packs/Day Years Used Date Smoking Tobacco: Some Days Cigarettes Smokeless Tobacco: Never Alcohol Use Standard Drinks/Week Comments Never 0 (1 standard drink = 0.6 oz pur e alcohol) Depression Answer Date Recorded Patient Health Questionnaire-9 Score 15 04/30/2024 Patient Health Questionnaire-9 Score 15 04/30/2024 Last PHQ-9: Questionnaire Data Not on file 0 04/30/2024 Housing Stability Answer Date Recorded What is your housing situation today? I have gisella edwards 09/10/[address] you li ve. Do you have problems with any of the following? None of the above 09/10/2024 Food Insecurity Answer Date Recorded Within the past 12 months, y ou worried that your food would run out before you got money to buy more: Never True 09/10/2024 Within the past 12 months,th e food you bought just didn't last and you didn't have enough money to get more: Never True Transportation Answer Date Recorded In the past 12 months, has l ack of transportation kept you from medical appts, meetings, work or from getting things needed for daily living? No 09/10/2024 Utilities Answer Date Recorded In the past 12 months, has t he electric, gas, oil or water company threatened to shut off services in your home? No 09/10/2024 Depression Answer Date Recorded Patient Health Questionnaire-2 Score 5 04/30/2024 Internet Access Answer Date Recorded Internet Access Q1 Yes 09/10/2024 Internet Access Q2 Not on file 09/10/2024 Sex and Gender Information Value Date Recorded Sex Assigned at Male 06/24/2022 10:40 AM EDT Legal Sex Male 10:40 AM EDT Gender Identity Male 08/30/2022 8:10 AM EST Sexual Orientation Choose not to disclose 2021 10:40 AM EDT documented as of this encounter Miscellaneous Notes * Addendum Note - Scot Gray MD - 09/13/2024 8:30 AM ESTAddended by: SCOT GRAY on: 09/13/2024 08:30 AM Modules accepted: Orders * Telephone Encounter - Bettina Kaushik - 09/03/2024 2:59 PM EST Pharmacy is requesting an updated CDTM referral with a diagnosis of diabetes I10 Primary hypertension. This is to replace existing referral that no longer meets visit requirements. Please send at your earliest convenience. Thank you! * Telephone Encounter - Vero Hurleymoris Gage - 09/01/2024 10:11 AM EST Tc from pt requesting reschedule 09/01 appt with Alicia Fuentes. Pt forgot appt. documented in this encounter Plan of Treatment Upcoming Encounters Date Type Department Care Team (Late st Contact Info) Description 10/28/2024 10:00 AM EST Medication Management [facility] [address] [place] [phone] Alicia Fuentes PharmD [address] [place] [phone] 11/05/2024 11:00 AM EDT Office Visit [facility] [address] [place] [phone] NameScot MD [address] [place] [address] Scheduled Referrals Name Type Priority Associated Diagnoses Orde r Schedule Referral to Pharmacy CDTM Outpatient Referral Routine New onset type 2 diabetes mellitus (CMS/HCC) Primary hypertension Ordered: 09/13/2024 documented as of this encounter Goals Goal Patient Goal Type Associated Problems Recent Progress Patient-Stated? Author Smoking cessation General No Alicia Fuentes, PharmD documented as of this encounter Visit Diagnoses Diagnosis New onset type 2 diabetes mellitus (CMS/HCC)- Primary Primary hypertension Unspecified essential hypertension documented in this encounter Additional Health Concerns Assessment Noted Time PHQ-9 Depression Total Score: 15 024 10:43 AM EDT documented as of this encounter Care Teams Aircraft Electrical Systems Specialist Relationship Specialty Start Date End Date Scot Gray MD [address] [place] [phone] PCP - General Internal Medicine 08/16/22 Alicia Fuentes PharmD [address] [place] [address] Pharmacist Internal Medicine 12/18/22 Alicia Fuentes, Bob [address] [place] [address] Pharmacist Internal Medicine 07/28/24 Mian Gillette Vending Service TechnicianAircraft Restorer 12/29/23 [facility] 07/10/24 documented as of this encounter
--- OUTSIDE RECORDS SUMMARY | 2024-09-24 11:52 | XMS_ITS | Encounter Summary ---
Author Organization [employer] Address [address] [place] [address] Care Team Providers Care Composite Worker Name Role Phone Name, Scot SEARS Primary Care Provider [phone] Puia, Alicia PharmD Unavailable [phone] Puia, Alicia PharmD Unavailable [phone] Reason for Visit * Reason Onset Date Comments Durable Medical Equipment 08/22/2023 Encounter Details Date Type Department Care Team (Late st Contact Info) Description 08/22/2023 Telephone [facility] [address] [place], [place] [phone] Name, MD Scot [address] [place], [place] [phone] Durable Medical Equipment Social History Tobacco Use Types Packs/Day Years Used Date Smoking Tobacco: Some Days Cigarettes 0.3 0.5 Smokeless Tobacco: Never Alcohol Use Standard Drinks/Week Comments Never 0 (1 standard drink = 0.6 oz pur e alcohol) Depression Answer Date Recorded Patient Health Questionnaire-9 Score 0 08/16/2022 Housing Stability Answer Date Recorded What is your housing situation today? I have gisellamikael edwards 06/09/[address] you li ve. Do you have problems with any of the following? None of the above 06/09/2023 Food Insecurity Answer Date Recorded Within the past 12 months, y ou worried that your food would run out before you got money to buy more: Never True 06/09/2023 Within the past 12 months,th e food you bought just didn't last and you didn't have enough money to get more: Never True Transportation Answer Date Recorded In the past 12 months, has l ack of transportation kept you from medical appts, meetings, work or from getting things needed for daily living? No 06/09/2023 Utilities Answer Date Recorded In the past 12 months, has t he electric, gas, oil or water company threatened to shut off services in your home? No 06/09/2023 Depression Answer Date Recorded Patient Health Questionnaire-2 Score 0 08/16/2022 Sex and Gender Information Value Date Recorded Sex Assigned at Male 06/24/2022 10:40 AM EDT Legal Sex Male 10:40 AM EDT Gender Identity Male 08/30/2022 8:10 AM EST Sexual Orientation Choose not to disclose 2021 10:40 AM EDT documented as of this encounter Miscellaneous Notes * Telephone Encounter - Richard Hayes - 08/27/2023 11:45 AM EST TC from pt requesting status on papers below. Please contact pt @ [phone] * Telephone Encounter - Lorraine Mccray - 08/22/2023 3:22 PM EST Tc from pt requesting for PCP to fill out a [facility] necessity form for a walker due to having hip surgery 08/26. States he dropped it off the front desk agent. Please contact pt at [phone] (Armenian) documented in this encounter Plan of Treatment Upcoming Encounters Date Type Department Care Team (Late st Contact Info) Description 10/28/2024 10:00 AM EST Medication Management [facility] [address] [place] [phone] Alicia Fuentes, PharmD [address] [place] [address] 11/05/2024 11:00 AM EDT Office Visit [facility] [address] [place] [phone] Name, MD Scot [address] [place] [address] documented as of this encounter Goals Goal Patient Goal Type Associated Problems Recent Progress Patient-Stated? Author Smoking cessation General No Alicia Fuentes, Bob documented as of this encounter Visit Diagnoses Not on filedocumented in this encounter Additional Health Concerns Assessment Noted Time PHQ-9 Depression Total Score: 0 08/16/20 9:25 AM EST documented as of this encounter Care Teams Composite Worker Relationship Specialty Start Date End Date Name, MD Scot [address] [place] [address] PCP - General Internal Medicine 08/16/22 Alicia Fuentes PharmD [address] [place] [phone] Pharmacist Internal Medicine 12/18/22 Alicia Fuentes PharmD [address] [place] [phone] Pharmacist Internal Medicine 07/28/24 Mian Gillette Java Web EngineerComposition Tile Layer 12/29/23 [facility] 07/10/24 documented as of this encounter
--- OUTSIDE RECORDS SUMMARY | 2024-09-24 11:52 | XMS_ITS | Encounter Summary ---
Author Organization [email or web address] Address [address] [facility] [address] [place] [address] Care Team Providers Care Char Conveyor Tender Cellar Name Role Phone Name, Scot SEARS Primary Care Provider [phone] Puia, Alicia PharmD Unavailable [phone] Puia, Alicia PharmD Unavailable Reason for Visit * Reason Onset Date Comments Chart Prep 09/06/2024 Encounter Details Date Type Department Care Team (Late st Contact Info) Description 09/06/2024 Telephone [facility] [address] [place], [place] [phone] Brittany Mcclure MA Chart Prep Social History Tobacco Use Types Packs/Day Years [...] What is your housing situation today? I do not have housing (Staying with others, in a hotel, in a intermediate, living outside on the street, on a beach, in a car, or in a park 08/29/[address] you li ve. Do you have problems with any of the following? None of the above 08/29/2023 Food Insecurity Answer Date Recorded Within the past 12 months, y ou worried that your food would run out before you got money to buy more: Sometimes True 2023 Within the past 12 months,th e food you bought just didn't last and you didn't have enough money to get more: Sometimes True 08/29/2023 Transportation Answer Date Recorded In the past 12 months, has l ack of transportation kept you from medical appts, meetings, work or from getting things needed for daily living? No 08/29/2023 Utilities Answer Date Recorded In the past 12 months, has t he electric, gas, oil or water company threatened to shut off services in your home? No 08/29/2023 Depression Answer Date Recorded Patient Health Questionnaire-2 Score 5 04/30/2024 Sex and Gender Information Value Date Recorded Sex Assigned at Male 06/24/2022 10:40 AM EDT Legal Sex Male 10:40 AM EDT Gender Identity Male 08/30/2022 8:10 AM EST Sexual Orientation Choose not to disclose 2021 10:40 AM EDT documented as of this encounter Miscellaneous Notes * Telephone Encounter - Brittany Mcclure MA - 09/06/2024 11:34 AM EST Chart Prep Labs: done Images: done Vaccines due: Hep A Due Referrals: General Surgery complete Screenings: Colonoscopy and Foot Exam Overdue care gaps: A1C, Glucose, and SDOH documented in this encounter Plan of Treatment Upcoming Encounters Date Type Department Care Team (Late st Contact Info) Description 10/28/2024 10:00 AM EST Medication Management [facility] [address] [place] [phone] Alicia Fuentes, PharmD [address] [place] [address] 11/05/2024 11:00 AM EDT Office Visit [facility] [address] [place] [phone] Name, MD Scot [address] [place] [phone] documented as of this encounter Goals Goal Patient Goal Type Associated Problems Recent Progress Patient-Stated? Author Smoking cessation General No Alicia Fuentes PharmD documented as of this encounter Visit Diagnoses Not on filedocumented in this encounter Additional Health Concerns Assessment Noted Time PHQ-9 Depression Total Score: 15 024 10:43 AM EDT documented as of this encounter Care Teams Char Conveyor Tender Cellar Relationship Specialty Start Date End Date Name, MD Scot [address] [place] [address] PCP - General Internal Medicine 08/16/22 Alicia Fuentes PharmD [address] [place] [address] Pharmacist Internal Medicine 12/18/22 Alicia Fuentes PharmD [address] [place] [address] Pharmacist Internal Medicine 07/28/24 Mian Gillette Sales Agent Financial Report ServiceSection Gang 12/29/23 [facility] 07/10/24 documented as of this encounter
--- OUTSIDE RECORDS SUMMARY | 2024-09-24 11:52 | XMS_ITS | Encounter Summary ---
Author Organization [employer] Address 75 [facility] 7t [place] [address] Care Team Providers Care Operations Officer Name Role Phone Name, Scot SEARS Primary Care Provider [phone] Puia, Alicia PharmD Unavailable [phone] Puia, Alicia PharmD Unavailable [phone] Encounter Details Date Type Department Care Team ([facility] Contact Info) Description 09/02/2024 Orders Only GENERIC EXTERNAL DATA DEPARTMENT Provider, Generic External Data Social History Tobacco Use Types Packs/Day Years [...] with others, in a hotel, in a nursing home, living outside on the street, on a [...] AM EDT documented as of this encounter Plan of Treatment Upcoming Encounters Date Type Department Care Team (Late st Contact Info) Description 10/28/2024 10:00 AM EST Medication Management [facility] [address] [place] [address] Alicia Fuentes, PharmD [address] [place] [address] 11/05/2024 11:00 AM EDT Office Visit [facility] [address] [place] [address] Name, MD Scot [address] [place] [address] documented as of this encounter Goals Goal Patient Goal Type Associated Problems Recent Progress Patient-Stated? Author Smoking cessation General No Alicia Fuentes, PharmD documented as of this encounter Procedures Procedure Name Priority Date/Time Associated Diagnosis Comments GROSS AND MICROSCOPIC LEVEL 3 Routine 09/02/2024 2:15 PM EST documented in this encounter Results * Gross and Microscopic Level 3 (09/02/2024 2:15 PM EST) 09/02/2024 2:15 PM EST 09/02/2024 2:30 PM EST [facility] - 09/06/2024 10:22 AM EST ----- ------- Name: Cameron Calderon ? Age/Sex: 59/M ? : 1965 Unit#: [id number] ?? Attend Dr: Cesar Humphries MD ?Re09/02/24 ?Status: DEP REF ? Location: HO.LNP ?Disch: ? ----- ------- SPEC : [id number] ?RECD: 09/02/24-1429 ? STATUS: ??SOUT ? REQ NUM: [id number] ? BRIA: 09/02/24-9334 ? SUBM DR: Cesar Humphries MD ? ENTERED: ??09/02/24-569 ?SP TYPE: Surgical ? OTHR DR: Scot Mathews MD ? ORDERED: ??Gross Micro L3 ? Diagnosis ?? Soft tissue, right shoulder, excision: ??Mature lobulated adipose tissue with fat ?? necrosis, consistent with lipoma. ?Clinical History Lipoma ?Microscopic Description Microscopic sections reviewed. ? Material Received ?? Rt shoulder Lipoma ? Gross Description Received in formalin labeled ?right shoulder? is a partially fragmented multilobular portion of hendricks-yellow adipose tissue aggregating 7.5 x 5.0 x 0.5-2.0 cm. ??Due to the fragmented nature in which the specimen is received the margins can not be evaluated. ??Sectioning reveals predominantly homogeneous hendricks-yellow lobular fat with focal pinpoint congestion. No hemorrhagic or necrotic foci are identified. ??Pork Cutlet Maker sections are submitted in cassettes A1-A3. ??CEDS This case was reviewed intradepartmentally. Copies To: ?? Cesar Humphries MD ?? [facility] General Surgeons ?? [address] [facility] ?? [place] [address] ?? [phone] ?? Name,Scot SEARS ?? [address] [facility] ?? [place] [address] ?? [phone] ----- ------- Signed (signature on file) Reinier Farmer MD 09/06/24 1022 ? ----- ------- ? END OF REPORT ? us Generic External Data Provider LAB CYTOLOGY JANEEN [place] Final Result [facility] [address] [place] [address] [phone] documented in this encounter Visit Diagnoses Not on filedocumented in this encounter Additional Health Concerns Assessment Noted Time PHQ-9 Depression Total Score: 15 024 10:43 AM EDT documented as of this encounter Care Teams Operations Officer Relationship Specialty Start Date End Date Name, MD Scot [address] [place] [address] PCP - General Internal Medicine 08/16/22 Alicia Fuentes, Bob [address] [place] [address] Pharmacist Internal Medicine 12/18/22 Alicia Fuentes PharmD [address] [place] [address] Pharmacist Internal Medicine 07/28/24 Mian Gillette Revolving Field AssemblerElectronic Court Recorder 12/29/23 [facility] 07/10/24 documented as of this encounter
--- OUTSIDE RECORDS SUMMARY | 2024-09-24 11:52 | XMS_ITS | Encounter Summary ---
Author Organization [employer] Address 75 [facility] 7t [place] [address] Care Team Providers Care Metal Temperer Name Role Phone Name, Scot SEARS Primary Care Provider [phone] Puia, Alicia PharmD Unavailable [phone] Puia, Alicia PharmD Unavailable Reason for Visit * Reason Onset Date Comments Chart Prep 09/01/2024 Encounter Details Date Type Department Care Team (Late st Contact Info) Description 09/01/2024 Telephone [facility] [address] [place], [place] [phone] Brittany Mcclure MA Chart Prep Social History [...] with others, in a hotel, in a care home, living outside on the street, on [...] Telephone Encounter - Brittany Mcclure MA - 09/01/2024 3:13 PM EST Chart Prep Labs: done Images: done Vaccines due: Covid Due and Hep A Due Referrals: General Surgery Completed Screenings: Colonoscopy and Foot Exam Overdue care gaps: A1C, Glucose, and SDOH documented in this encounter Plan of Treatment Upcoming Encounters Date Type Department Care Team (Late st Contact Info) Description 10/28/2024 10:00 AM EST Medication Management [facility] [address] [place] [address] Alicia Fuentes, PharmD [address] [place] [address] 11/05/2024 11:00 AM EDT Office Visit [facility] [address] [place] [address] [phone] Name, MD Scot [address] [place] [address] documented as of this encounter Goals Goal Patient Goal Type Associated Problems Recent Progress Patient-Stated? Author Smoking cessation General No Puia, Alicia, PharmD documented as of this encounter Visit Diagnoses Not on filedocumented in this encounter Additional Health Concerns Assessment Noted Time PHQ-9 Depression Total Score: 15 024 10:43 AM EDT documented as of this encounter Care Teams Metal Temperer Relationship Specialty Start Date End Date Name, MD Scot [address] [place] [address] PCP - General Internal Medicine 08/16/22 Alicia Fuentes PharmD [address] [place] [address] Pharmacist Internal Medicine 12/18/22 Alicia Fuentes PharmD [address] [place] [address] Pharmacist Internal Medicine 07/28/24 Mian Gillette Public Health RepresentativeRigger Chief 12/29/23 [facility] 07/10/24 documented as of this encounter
--- OUTSIDE RECORDS SUMMARY | 2024-09-24 11:52 | XMS_ITS | Encounter Summary ---
Author Organization [employer] Address [address] [facility] [address] 7t [place] [address] Care Team Providers Care Decal Maker Name Role Phone Name, Scot SEARS Primary Care Provider [phone] Puia, Alicia PharmD Unavailable [phone] Puia, Alicia PharmD Unavailable Reason for Visit * Reason Onset Date Comments Medication Question 11/21/2022 Encounter Details Date Type Department Care Team ([facility] st Contact Info) Description 11/21/2022 Telephone [facility] [address] [place], [place] [phone] Name, MD Scot [address] [place], [place] [phone] Medication Question Social History Tobacco Use Types Packs/Day Years Used Date Smoking Tobacco: Every Day Cigarettes 0.5 0.5 Smokeless Tobacco: Never Alcohol Use Standard Drinks/Week Comments Never 0 (1 standard drink = 0.6 oz pur e alcohol) Depression Answer Date Recorded Patient Health Questionnaire-9 Score 0 08/16/2022 Depression Answer Date Recorded Patient Health Questionnaire-2 Score 0 08/16/2022 Sex and Gender Information Value Date Recorded Sex Assigned at Male 06/24/2022 10:40 AM EDT Legal Sex Male 10:40 AM EDT Gender Identity Male 08/30/2022 8:10 AM EST Sexual Orientation Choose not to disclose 2021 10:40 AM EDT COVID-19 Exposure Response Date Recorded In the last 10 days, have yo u been in contact with someone who was confirmed or suspected to have Coronavirus/COVID-19? No / Unsure 11/22/2022 10:02 AM EDT documented as of this encounter Miscellaneous Notes * Telephone Encounter - Richard Hayes - 11/21/2022 11:52 AM EDT Tc from pt requesting status on cough medication prescribed on last visit Please contact pt at [phone] documented in this encounter Plan of Treatment Upcoming Encounters Date Type Department Care Team (Late st Contact Info) Description 10/28/2024 10:00 AM EST Medication Management [facility] [address] [place] [phone] Alicia Fuentes PharmD [address] [place] [address] 11/05/2024 11:00 AM EDT Office Visit [facility] [address] [place] [address] Name, MD Scot [address] [place] [address] documented as of this encounter Visit Diagnoses Not on filedocumented in this encounter Additional Health Concerns Assessment Noted Time PHQ-9 Depression Total Score: 0 08/16/20 22 9:25 AM EST documented as of this encounter Care Teams Decal Maker Relationship Specialty Start Date End Date Name, MD Scot [address] [place] [address] PCP - General Internal Medicine 08/16/22 Alicia Fuentes PharmD [address] [place] [address] Pharmacist Internal Medicine 12/18/22 Alicia Fuentes PharmD [address] [place] [address] Pharmacist Internal Medicine 07/28/24 Mian Gillette Evaluation AssistantResident Programs Assistant 12/29/23 [facility] 07/10/24 documented as of this encounter
--- OUTSIDE RECORDS SUMMARY | 2024-09-24 11:52 | XMS_ITS | Encounter Summary ---
Author Organization [employer] Address 75 [facility] 7t [place] [address] Care Team Providers Care Sales Financial Analyst Name Role Phone Name, Scot SEARS Primary Care Provider [phone] Puia, Alicia PharmD Unavailable Puia, Alicia PharmD Unavailable Reason for Visit * Reason Comments Med Refill Encounter Details Date Type Department Care Team (Late st Contact Info) Description 12/12/2023 Refill [facility] [address] [place], [place] [phone] Radha Foster DO [address] [place], [place] [phone] Social History Tobacco Use Types Packs/Day Years Used Date Smoking Tobacco: Some Days Cigarettes 0.3 0.5 Smokeless Tobacco: Never Alcohol Use Standard Drinks/Week Comments Never 0 (1 standard drink = 0.6 oz pur e alcohol) Depression Answer Date Recorded Patient Health Questionnaire-9 Score 9 10/24/2023 Patient Health Questionnaire-9 Score 9 10/24/2023 Last PHQ-9: Questionnaire Data Not on file 0 10/24/2023 Housing Stability Answer Date Recorded What is your housing situation today? I do not have housing (Staying with others, in a hotel, in a alf, living outside on the street, on a [...] Answer Date Recorded Patient Health Questionnaire-2 Score 1 10/24/2023 Sex and Gender Information Value Date Recorded [...] Description 10/28/2024 10:00 AM EST Medication Management [address] [address] Alicia Fuentes PharmD [address] [place] [address] 11/05/2024 11:00 AM EDT Office Visit [facility] [address] [place] [address] Scot Mathews MD [address] [place] [address] documented as of this encounter Goals Goal Patient Goal Type Associated Problems Recent Progress Patient-Stated? Author Smoking cessation General No Alicia Fuentes PharmD documented as of this encounter Visit Diagnoses Not on filedocumented in this encounter Additional Health Concerns Assessment Noted Time PHQ-9 Depression Total Score: 9 10/24/19 24 10:30 AM EST documented as of this encounter Care Teams Sales Financial Analyst Relationship Specialty Start Date End Date Scot Mathews MD [address] [place] [address] PCP - General Internal Medicine 08/16/22 [place] [address] Pharmacist Internal Medicine 12/18/22 [place] [address] Pharmacist Internal Medicine 07/28/24 Mian Gillette Skin Care SpecialistBarber Shop Operator 12/29/23 [facility] 07/10/24 documented as of this encounter
--- OUTSIDE RECORDS SUMMARY | 2024-09-24 11:52 | XMS_ITS | Encounter Summary ---
Author Organization [email or web address] Address 75 [facility] 7t [place] [address] Care Team Providers Care Learning And Development Associate Name Role Phone Name, Scot SEARS Primary Care Provider [phone] Puia, Alicia PharmD Unavailable [phone] Puia, Alicia PharmD Unavailable Reason for Visit * Reason Comments Med Refill Encounter Details Date Type Department Care Team (Late st Contact Info) Description 09/16/2024 Refill [facility] [address] [place], [place] [phone] Name, MD Scot [address] [place], [place] [phone] New onset type 2 diabetes mellitus (CMS/HCC) Social History Tobacco Use Types Packs/Day Years [...] Description 10/28/2024 10:00 AM EST Medication Management [facility] [address] [place] [address] Alicia Fuentes PharmD [address] [place] [address] 11/05/2024 11:00 AM EDT Office Visit [facility] [address] [place] [address] Name, MD Scot [address] [place] [address] documented as of this encounter Goals Goal Patient Goal Type Associated Problems Recent Progress Patient-Stated? Author Smoking cessation General No Alicia Fuentes, PharmD documented as of this encounter Visit Diagnoses Diagnosis New onset type 2 diabetes mellitus (CMS/HCC) documented in this encounter Additional Health Concerns Assessment Noted Time PHQ-9 Depression Total Score: 15 024 10:43 AM EDT documented as of this encounter Care Teams Learning And Development Associate Relationship Specialty Start Date End Date Name, MD Scot [address] [facility] [place] [address] PCP - General Internal Medicine 08/16/22 Alicia Fuentes PharmD [facility] [place] [address] Pharmacist Internal Medicine 12/18/22 Alicia Fuentes PharmD [facility] [place] [address] Pharmacist Internal Medicine 07/28/24 Mian Gillette Repairer HairspringNursing Director 12/29/23 [facility] 07/10/24 documented as of this encounter
--- OUTSIDE RECORDS SUMMARY | 2024-09-24 11:52 | XMS_ITS | Encounter Summary ---
Author Organization [employer] Address [address] [facility] 7t [place] [address] Care Team Providers Care Clinical Assistant Name Role Phone Name, Scot SEARS Primary Care Provider [phone] Puia, Alicia PharmD Unavailable [phone] Puia, Alicia PharmD Unavailable [phone] Reason for Visit * Reason Onset Date Comments PT1 03/02/2024 Encounter Details Date Type Department Care Team (Late st Contact Info) Description 03/02/2024 Telephone [facility] [address] [place] [address] Name, MD Scot [address] [place], [place] [phone] PT1 Social History Tobacco Use Types Packs/Day Years [...] with others, in a hotel, in a fci, living outside on the street, on a [...] encounter Miscellaneous Notes * Telephone Encounter - Naomi Hilario - 03/02/2024 11:29 AM EDT Patient calling requesting renew PT1 referrals. Home Address verified: Y/N: Yes Provider name or facility name: [facility] Facility Address: [address] [place] [address] [address] [place], [place] [phone] [place] [address] Escort needed: Y/N: No Do you have a wheelchair: Y/N: No If yes- Manual or electric: no Visits: 3 a month documented in this encounter Plan of Treatment Upcoming Encounters Date Type Department Care Team ([facility] st Contact Info) Description 10/28/2024 10:00 AM EST Medication Management [facility] [address] [place] [address] Alicia Fuentes, Bob [address] [place] [address] 11/05/2024 11:00 AM EDT Office Visit [facility] [place] [address] Name, MD Scot [facility] [place] [address] documented as of this encounter Goals Goal Patient Goal Type Associated Problems Recent Progress Patient-Stated? Author Smoking cessation General No Alicia Fuentes, PharmD documented as of this encounter Visit Diagnoses Not on filedocumented in this encounter Additional Health Concerns Assessment Noted Time PHQ-9 Depression Total Score: 9 10/24/19 24 10:30 AM EST documented as of this encounter Care Teams Clinical Assistant Relationship Specialty Start Date End Date Name, MD Scot [facility] [place] [address] PCP - General Internal Medicine 08/16/22 Alicia Fuentes, PharmD [facility] [place] [address] Pharmacist Internal Medicine 12/18/22 Alicia Fuentes, [place] [address] Pharmacist Internal Medicine 07/28/24 Mian Gillette Machine Heel Seat LasterGas Appliance Installer 12/29/23 [facility] 07/10/24 documented as of this encounter
--- OUTSIDE RECORDS SUMMARY | 2024-09-24 11:52 | XMS_ITS | Encounter Summary ---
Author Organization [employer] Address 75 [facility] 7t [place] [address] Care Team Providers Care Treatment Specialist Name Role Phone Name, Scot SEARS Primary Care Provider [phone] Puia, Alicia PharmD Unavailable Puia, Alicia PharmD Unavailable Reason for Visit * Reason Comments Med Refill Encounter Details Date Type Department Care Team (Late st Contact Info) Description 12/12/[address] [facility] [address] [place], [place] [phone] Name, MD Scot [address] [place] [address] Tobacco use Social History Tobacco Use Types Packs/Day Years [...] Description 10/28/2024 10:00 AM EST Medication Management [facility] [address] [place] [address] Alicia Fuentes PharmD [address] [place] [address] 11/05/2024 11:00 AM EDT Office Visit [facility] [address] [place] [address] Scot Mathews MD [address] [place] [address] documented as of this encounter Goals Goal Patient Goal Type Associated Problems Recent Progress Patient-Stated? Author Smoking cessation General No Alicia Fuentes, PharmD documented as of this encounter Visit Diagnoses Diagnosis Tobacco use documented in this encounter Additional Health Concerns Assessment Noted Time PHQ-9 Depression Total Score: 9 10/24/19 24 10:30 AM EST documented as of this encounter Care Teams Treatment Specialist Relationship Specialty Start Date End Date Scot Mathews MD [address] [place] [address] PCP - General Internal Medicine 08/16/22 [place] [address] Pharmacist Internal Medicine 12/18/22 [place] [address] Pharmacist Internal Medicine 07/28/24 Mian Gillette Head Of ConservationCattle Dealer 12/29/23 [facility] 07/10/24 documented as of this encounter
--- OUTSIDE RECORDS SUMMARY | 2024-09-24 11:52 | XMS_ITS | Encounter Summary ---
Author Organization [employer] Address 75 [facility] 7t [place] [address] Care Team Providers Care Tire Design Engineer Name Role Phone Name, Scot SEARS Primary Care Provider [phone] Puia, Alicia PharmD Unavailable [phone] Puia, Alicia PharmD Unavailable Reason for Visit * Reason Onset Date Comments Med Refill 08/26/2024 Encounter Details Date Type Department Care Team (Late st Contact Info) Description 08/26/2024 Telephone [facility] 230 [place], [place] [phone] Name, MD Scot [address] [place], [place] [phone] Med Refill Social History Tobacco Use Types Packs/Day Years [...] with others, in a hotel, in a senior care, living outside on the street, on a [...] encounter Miscellaneous Notes * Telephone Encounter - Bettina Faulkner - 09/01/2024 9:53 AM EST Pharmacy [facility] attempted outreach call on 09/01/24 for CDTM - Diabetes appointment; however, unable to reach patient. LVM for patient to contact Bettina Faulkner at [phone]. * Telephone Encounter - Radha Gonzáles LPN - 08/26/2024 9:26 AM EST Script was sent to [facility] on 07/28/24 with 11 refills. * Telephone Encounter - Hazel Arellano - 08/26/2024 9:18 AM EST TC from pt requesting medication refill. Medications needing refill : Continuous Glucose Sensor (FreeStyle Neel 2 Sensor) [facility] To be sent to: [facility] pharmacy documented in this encounter Plan of Treatment Upcoming Encounters Date Type Department Care Team (Late st Contact Info) Description 10/28/2024 10:00 AM EST Medication Management [place] [facility] [place] [address] Alicia Fuentes PharmD [facility] [place] [address] 11/05/2024 11:00 AM EDT Office Visit [place] [facility] [place] [address] Name, [place] [address] documented as of this encounter Goals Goal Patient Goal Type Associated Problems Recent Progress Patient-Stated? Author Smoking cessation General No Alicia Fuentes PharmD documented as of this encounter Visit Diagnoses Not on filedocumented in this encounter Additional Health Concerns Assessment Noted Time PHQ-9 Depression Total Score: 15 024 10:43 AM EDT documented as of this encounter Care Teams Tire Design Engineer Relationship Specialty Start Date End Date Name, [place] [address] PCP - General Internal Medicine 08/16/22 [place] [address] Pharmacist Internal Medicine 12/18/22 [place] [address] Pharmacist Internal Medicine 07/28/24 Mian Gillette Systems EngineerTip Cementer 12/29/23 [facility] 07/10/24 documented as of this encounter
--- OUTSIDE RECORDS SUMMARY | 2024-09-24 11:52 | XMS_ITS | Encounter Summary ---
Author Organization [employer] Address [address] [facility] [address] 7t [place] [address] Care Team Providers Care Library Helper Name Role Phone Name, Scot SEARS Primary Care Provider [phone] Puia, Alicia PharmD Unavailable [phone] Puia, Alicia PharmD Unavailable [phone] Encounter Details Date Type Department Care Team (Latest Contact Info) Description 09/06/2024 Travel Social History Tobacco Use Types Packs/Day Years [...] with others, in a hotel, in a [place] [facility], living outside on the street, on a [...] Description 10/28/2024 10:00 AM EST Medication Management [facility] [address] [place] [address] Alicia Fuentes PharmD [address] [place] [address] 11/05/2024 11:00 AM EDT Office Visit [facility] [address] [place] [address] NameScot MD [address] [place] [address] documented as of this encounter Goals Goal Patient Goal Type Associated Problems Recent Progress Patient-Stated? Author Smoking cessation General No Alicia Fuentes PharmD documented as of this encounter Visit Diagnoses Not on filedocumented in this encounter Additional Health Concerns Assessment Noted Time PHQ-9 Depression Total Score: 15 024 10:43 AM EDT documented as of this encounter Care Teams Library Helper Relationship Specialty Start Date End Date NameScot MD [address] [place] [address] PCP - General Internal Medicine 08/16/22 Alicia Fuentes PharmD [address] [place] [address] Pharmacist Internal Medicine 12/18/22 Alicia Fuentes, Bob [address] [place] [address] [place], [place] [phone] Pharmacist Internal Medicine 07/28/24 Mian Gillette Pulmonary Function TechnicianBehavioral Analyst 12/29/23 [facility] 07/10/24 documented as of this encounter
--- OUTSIDE RECORDS SUMMARY | 2024-09-24 11:52 | XMS_ITS | Encounter Summary ---
Author Organization [facility] Address [facility] [address] [place] [address] Care Team Providers Care Flying Instructor Name Role Phone Name, Scot SEARS Primary Care Provider [phone] Puia, Alicia PharmD Unavailable [phone] Puia, Alicia PharmD Unavailable Reason for Visit * Reason Onset Date Comments Appointment Request 03/18/2023 Encounter Details Date Type Department Care Team ([facility] st Contact Info) Description 03/18/2023 Telephone [facility] 230 [place], [place] [phone] Name, MD Scot [address] [place], [place] [phone] Appointment Request Social History Tobacco Use Types Packs/Day Years Used Date Smoking Tobacco: Every Day Cigarettes 0.3 0.5 Smokeless Tobacco: Never Alcohol [...] was confirmed or suspected to have Coronavirus/COVID-19? Unable to assess 02/26/2023 2:11 PM EDT documented as of this encounter Miscellaneous Notes * Telephone Encounter - Lorraine Mccray - 03/18/2023 10:04 AM EDT Tc from pt requesting a f/u appointment on recent chest scans. Please contact pt at [phone] (Kinyarwanda) documented in this encounter Plan of Treatment Upcoming Encounters Date Type Department Care Team (Late st Contact Info) Description 10/28/2024 10:00 AM EST Medication Management [address] [address] Alicia Fuentes PharmD [address] [place] [address] 11/05/2024 11:00 AM EDT Office Visit [facility] [address] [place] [address] Name, MD Scot [address] [place] [address] documented as of this encounter Goals Goal Patient Goal Type Associated Problems Recent Progress Patient-Stated? Author Smoking cessation General No Alicia Fuentes PharmD documented as of this encounter Visit Diagnoses Not on filedocumented in this encounter Additional Health Concerns Assessment Noted Time PHQ-9 Depression Total Score: 0 08/16/20 22 9:25 AM EST documented as of this encounter Care Teams Flying Instructor Relationship Specialty Start Date End Date Name, MD Scot [address] [place] [address] PCP - General Internal Medicine 08/16/22 Alicia Fuentes PharmD [address] [place] [address] Pharmacist Internal Medicine 12/18/22 Alicia Fuentes PharmD [address] [place] [address] Pharmacist Internal Medicine 07/28/24 Mian Gillette Drum TenderHand Hide Stretcher 12/29/23 [facility] 07/10/24 documented as of this encounter
--- OUTSIDE RECORDS SUMMARY | 2024-09-24 11:52 | XMS_ITS | Encounter Summary ---
Author Organization [facility] Address 75 [facility] 7t [place] [address] Care Team Providers Care Solution Architect Name Role Phone Name, Scot SEARS Primary Care Provider [phone] Puia, Alicia PharmD Unavailable [phone] Puia, Alicia PharmD Unavailable Reason for Visit * Reason Onset Date Comments Nurse Triage 01/28/2023 Encounter Details Date Type Department Care Team ([facility] st Contact Info) Description 01/28/2023 Telephone [facility]INE 230 [place], [place] [phone] Name, MD Scot 230 [place], [place] [phone] Nurse Triage Social History Tobacco Use Types Packs/Day Years [...] encounter Miscellaneous Notes * Telephone Encounter - Vivian Corea RN - 01/28/2023 11:44 AM EDT Call returned to [facility] for triage. No answer LVM to return call to [facility] triage line [phone]. Protocol Used: No Contact or Duplicate Contact Call (Adult) Protocol-Based Disposition: No Contact Call Positive Triage Question: * Message left on identified voicemail * All higher-acuity triage questions were negative * Telephone Encounter - Beatriz Pringle - 01/28/2023 11:31 AM EDT Symptom: Vision Loss or Change Outcome: Schedule an urgent appointment (within 1 hour) or talk to a nurse or provider soon Reason: Getting worse The caller accepted this outcome Please contact at [phone] Tiffany documented in this encounter Plan of Treatment Upcoming Encounters Date Type Department Care Team (Late st Contact Info) Description 10/28/2024 10:00 AM EST Medication Management [address] [address] Alicia Fuentes PharmD [address] [place] [address] 11/05/2024 11:00 AM EDT Office Visit [address] [address] Name, [place] [address] documented as of this encounter Goals Goal Patient Goal Type Associated Problems Recent Progress Patient-Stated? Author Smoking cessation General No Alicia Fuentes PharmD documented as of this encounter Visit Diagnoses Not on filedocumented in this encounter Additional Health Concerns Assessment Noted Time PHQ-9 Depression Total Score: 0 08/16/20 9:25 AM EST documented as of this encounter Care Teams Solution Architect Relationship Specialty Start Date End Date Name, MD Scot [address] [place] [address] PCP - General Internal Medicine 08/16/22 Alicia Fuentes PharmD [address] [place] [address] Pharmacist Internal Medicine 12/18/22 Alicia Fuentes PharmD [address] [place] [address] Pharmacist Internal Medicine 07/28/24 Mian Gillette Property UnderwriterLegislative Analyst 12/29/23 [facility] 07/10/24 documented as of this encounter
--- OUTSIDE RECORDS SUMMARY | 2024-09-24 11:52 | XMS_ITS | Encounter Summary ---
Author Organization [facility] Address 75 [facility] 7t [place] [address] Care Team Providers Care Size Marker Name Role Phone Name, Scot SEARS Primary Care Provider [phone] Puia, Alicia PharmD Unavailable [phone] Puia, Alicia PharmD Unavailable Reason for Visit * Reason Onset Date Comments Orders Request 12/12/2023 Encounter Details Date Type Department Care Team ([facility] st Contact Info) Description 12/12/2023 Telephone [facility] 230 [place] [address] Name, MD Scot 230 [place], [place] [phone] Orders Request Social History Tobacco Use Types Packs/Day [...] encounter Miscellaneous Notes * Telephone Encounter - Jade Iverson RN - 12/12/2023 12:15 PM EDT T/C to pt. For below message, pt. Advised to give call to orthopedics for below orders. Pt. Verbally agreed and understood. * Telephone Encounter - Naomi Hilario - 12/12/2023 8:36 AM EDT Tc from pt requesting Ct Scan order for back pain by request of Orthopedic office stated. documented in this encounter Plan of Treatment Upcoming Encounters Date Type Department Care Team (Late st Contact Info) Description 10/28/2024 10:00 AM EST Medication Management [facility] 230 [place] [address] Alicia Fuentes, PharmD 230 [place], [place] [phone] 11/05/2024 11:00 AM EDT Office Visit [facility] [place] [address] Name, MD Scot [facility] [place] [address] documented as of this encounter Goals Goal Patient Goal Type Associated Problems Recent Progress Patient-Stated? Author Smoking cessation General No Alicia Fuentes, AnkushD documented as of this encounter Visit Diagnoses Not on filedocumented in this encounter Additional Health Concerns Assessment Noted Time PHQ-9 Depression Total Score: 9 10/24/19 24 10:30 AM EST documented as of this encounter Care Teams Size Marker Relationship Specialty Start Date End Date Name, MD Scot [facility] [place] [address] PCP - General Internal Medicine 08/16/22 Alicia Fuentes, AnkushD [facility] [place] [address] Pharmacist Internal Medicine 12/18/22 Alicia Fuentes, Bob [facility] [place] [address] Pharmacist Internal Medicine 07/28/24 Mian Gillette Element SetterDairy Nutrition Consultant 12/29/23 [facility] 07/10/24 documented as of this encounter
--- OUTSIDE RECORDS SUMMARY | 2024-09-24 11:52 | XMS_ITS | Encounter Summary ---
Author Organization [facility] Address 75 [facility] 7t [place] [address] Care Team Providers Care Sales Representative Marine Supplies Name Role Phone Name, Scot SEARS Primary Care Provider [phone] Puia, Alicia PharmD Unavailable [phone] Puia, Alicia PharmD Unavailable [phone] Reason for Visit * Reason Onset Date Comments Hospital Follow-up 07/09/2024 Encounter Details Date Type Department Care Team ([facility] st Contact Info) Description 07/09/2024 Telephone [facility] 230 [place], [place] [phone] Name, MD Scot 230 [place], [place] [phone] Hospital Follow-up Social History Tobacco Use Types Packs/Day Years [...] with others, in a hotel, in a usp, living outside on the street, on a [...] encounter Miscellaneous Notes * Telephone Encounter - Beatriz Pringle - 07/09/2024 2:08 PM EST Tc from pt requesting a HDF appt. [place] [facility] Date of admission: 07/06/24 Discharge date: 07/09/24 Diagnosed: Diabetic and high BP Please contact at [phone] Albanian documented in this encounter Plan of Treatment Upcoming Encounters Date Type Department Care Team (Late st Contact Info) Description 10/28/2024 10:00 AM EST Medication Management [facility] [address] [place] [address] Alicia Fuentes, AnkushD 230 [place] [address] 11/05/2024 11:00 AM EDT Office Visit [facility] [address] [place] [address] [phone] Name, MD Scot 230 [place] [address] documented as of this encounter Goals Goal Patient Goal Type Associated Problems Recent Progress Patient-Stated? Author Smoking cessation General No Alicia Fuentes, Bob documented as of this encounter Visit Diagnoses Not on filedocumented in this encounter Additional Health Concerns Assessment Noted Time PHQ-9 Depression Total Score: 15 024 10:43 AM EDT documented as of this encounter Care Teams Sales Representative [employer] Supp[employer] Relationship Specialty Start Date End Date Name, MD Scot [address] [place] [address] PCP - General Internal Medicine 08/16/22 Alicia Fuentes PharmD [address] [place] [address] Pharmacist Internal Medicine 12/18/22 Alicia Fuentes PharmD [address] [place] [address] Pharmacist Internal Medicine 07/28/24 Mian Gillette Manufacturing Support EngineerCorporate Security Officer 12/29/23 [facility] 07/10/24 documented as of this encounter
--- OUTSIDE RECORDS SUMMARY | 2024-09-24 11:52 | XMS_ITS | Encounter Summary ---
Author Organization [employer] Address 75 [facility] 7t [place] [address] Care Team Providers Care Laborer Livestock Name Role Phone Name, Scot SEARS Primary Care Provider [phone] Puia, Alicia PharmD Unavailable [phone] Puia, Alicia PharmD Unavailable Reason for Visit * Reason Onset Date Comments Med Refill 07/14/2023 Encounter Details Date Type Department Care Team ([facility] st Contact Info) Description 07/14/2023 Telephone [facility]INE 230 [place], [place] [phone] Name, MD Scot [address] [place], [place] [phone] Med Refill Social History Tobacco Use Types Packs/Day Years Used Date Smoking Tobacco: Former Cigarettes 0.3 0.5 Smokeless Tobacco: Never Alcohol [...] encounter Miscellaneous Notes * Telephone Encounter - Radha Gonzáles LPN - 07/14/2023 11:00 AM EST Medication was sent to [facility] on 02/14/23 with 11 refills. * Telephone Encounter - Luis Faulkner - 07/14/2023 10:51 AM EST Tc from pt requesting a refill for Umeclidinium Brick (Incruse Ellipta) 62.5 MCG/ACT aerosol powder. documented in this encounter Plan of Treatment Upcoming Encounters Date Type Department Care Team (Late st Contact Info) Description 10/28/2024 10:00 AM EST Medication Management [facility] [address] [place] [address] Alicia Fuentes, PharmD 230 [place] [address] 11/05/2024 11:00 AM EDT Office Visit [facility] [address] [place] [address] Name, MD Scot [address] [place] [address] documented as of this encounter Goals Goal Patient Goal Type Associated Problems Recent Progress Patient-Stated? Author Smoking cessation General No Alicia Fuentes PharmD documented as of this encounter Visit Diagnoses Not on filedocumented in this encounter Additional Health Concerns Assessment Noted Time PHQ-9 Depression Total Score: 0 08/16/20 22 9:25 AM EST documented as of this encounter Care Teams Laborer Livestock Relationship Specialty Start Date End Date Name, MD Scot [address] [place] [address] PCP - General Internal Medicine 08/16/22 Alicia Fuentes PharmD 230 [place] [address] Pharmacist Internal Medicine 12/18/22 Alicia Fuentes PharmD 230 [place] [address] Pharmacist Internal Medicine 07/28/24 Mian Gillette Otr Owner OperatorCounty Home Demonstrator 12/29/23 [facility] 07/10/24 documented as of this encounter
--- OUTSIDE RECORDS SUMMARY | 2024-09-24 11:52 | XMS_ITS | Encounter Summary ---
Author Organization [employer] Address 75 [facility] 7t [place] [address] Care Team Providers Care Financial Consultant Name Role Phone Name, Scot SEARS Primary Care Provider [phone] Puia, Alicia PharmD Unavailable [phone] Puia, Alicia PharmD Unavailable [phone] Reason for Visit * Reason Comments Med Refill Encounter Details Date Type Department Care Team (Late st Contact Info) Description 10/02/2023 Refill [facility] 230 [place], [place] [phone] Name, MD Scot 230 [place], [place] [phone] Tobacco use Social History Tobacco Use Types Packs/Day Years Used Date Smoking Tobacco: Some Days Cigarettes 0.3 0.5 Smokeless Tobacco: Never Alcohol Use Standard Drinks/Week Comments Never 0 (1 standard drink = 0.6 oz pur e alcohol) Depression Answer Date Recorded Patient Health Questionnaire-9 Score 9 09/12/2023 Patient Health Questionnaire-9 Score 9 09/12/2023 Last PHQ-9: Questionnaire Data Not on file 0 09/12/2023 Housing Stability Answer Date Recorded What is your housing situation today? I do not have housing (Staying with others, in a hotel, in a retirement, living outside on the street, on a [...] Answer Date Recorded Patient Health Questionnaire-2 Score 4 09/12/2023 Sex and Gender Information Value Date Recorded [...] Description 10/28/2024 10:00 AM EST Medication Management [address] [address] Alicia Fuentes PharmD [address] [place] [address] 11/05/2024 11:00 AM EDT Office Visit [facility] [address] [place] [address] Scot Mathews MD [address] [place] [address] documented as of this encounter Goals Goal Patient Goal Type Associated Problems Recent Progress Patient-Stated? Author Smoking cessation General No Alicia Fuentes PharmD documented as of this encounter Visit Diagnoses Diagnosis Tobacco use documented in this encounter Additional Health Concerns Assessment Noted Time PHQ-9 Depression Total Score: 9 09/12/19 24 9:23 AM EST documented as of this encounter Care Teams Financial Consultant Relationship Specialty Start Date End Date Scot Mathews MD [address] [place], [place] [address] [address] PCP - General Internal Medicine 08/16/22 [place] [address] Pharmacist Internal Medicine 12/18/22 Alicia Fuentes PharmD [facility] [place] [address] Pharmacist Internal Medicine 07/28/24 Mian Gillette Border Patrol AgentTowing Pilot 12/29/23 [facility] 07/10/24 documented as of this encounter
--- OUTSIDE RECORDS SUMMARY | 2024-09-24 11:52 | XMS_ITS | Encounter Summary ---
Author Organization [employer] Address [address] [facility] [address] 7t [place] [address] Care Team Providers Care Business System Manager Name Role Phone Name, Scot SEARS Primary Care Provider [phone] Puia, Alicia PharmD Unavailable Puia, Alicia PharmD Unavailable Encounter Details Date Type Department Care Team ([facility] st Contact Info) Description 11/21/2022 Telephone [facility] 230 [place], [place] [phone] Name, MD Scot 230 [place], [place] [phone] Social History Tobacco Use Types Packs/Day Years [...] Description 10/28/2024 10:00 AM EST Medication Management [facility] [place] [address] Alicia Fuentes PharmD [facility] [place] [address] 11/05/2024 11:00 AM EDT Office Visit [facility] [place] [address] Name, MD Scot [facility] [place] [address] documented as of this encounter Visit Diagnoses Not on filedocumented in this encounter Additional Health Concerns Assessment Noted Time PHQ-9 Depression Total Score: 0 08/16/20 9:25 AM EST documented as of this encounter Care Teams Business System Manager Relationship Specialty Start Date End Date Name, MD Scot [facility] [place] [address] PCP - General Internal Medicine 08/16/22 Alicia Fuentes PharmD [facility] [address] Pharmacist Internal Medicine 12/18/22 Alicia Fuentes PharmD [facility] [place] [address] Pharmacist Internal Medicine 07/28/24 Mian Gillette Hearing ConsultantClub Licensee 12/29/23 [facility] 07/10/24 documented as of this encounter
--- OUTSIDE RECORDS SUMMARY | 2024-09-24 11:52 | XMS_ITS | Encounter Summary ---
Author Organization [employer] Address [address] [place] [address] Care Team Providers Care Temperer Name Role Phone Name, Scot SEARS Primary Care Provider [phone] Puia, Alicia PharmD Unavailable [phone] Puia, Alicia PharmD Unavailable Encounter Details Date Type Department Care Team (Late st Contact Info) Description 09/10/2024 11:15 AM EST Office Visit [facility] [address] [place], [place] [phone] Lexi North NP [address] [place], [place] [phone] Impacted cerumen, unspecified laterality (Primary Dx); New onset type 2 diabetes mellitus (CMS/HCC) [...] AM EDT documented as of this encounter Last Filed Vital Signs Vital Sign Reading Time Taken Comments Blood Pressure 115/79 09/10/2024 11:33 AM EST Pulse 96 09/10/2024 11:33 AM EST Temperature 36.4 ??C (97.6 ??F) 09/10/2024 11:[address] Respiratory Rate 18 09/10/2024 11:33 AM EST Oxygen Saturation 97% 09/10/2024 11:33 AM EST Inhaled Oxygen Concentration - - Weight 113 kg (250 lb) 09/10/2024 11:33 AM EST Height 172.7 cm (5' 8 ) 09/10/2024 11:33 AM EST Body Mass Index 38.01 09/10/2024 11:33 AM EST documented in this encounter Progress Notes * Lexi North NP - 09/10/2024 11:15 AM EST Subjective: Cameron Calderon is a 59 y.o. male who presents to the office for a sick visit. HPI Left ear, clogged, no fever, chronic issue, no exudate Diabetes- A1c 7.8 tolerating trulicity, underwent shoulder surgery so activity was limited, monitors nutrition, weight is increased due to cold weather No s/s of hypoglycemia Re tobacco, pt is motivated to cut down smoking and has home NRT Patient Active Problem List Diagnosis Degeneration of lumbar intervertebral disc Primary hypertension Tobacco use Illiteracy and low-level literacy Chronic pain of right knee Osteoarthritis of right hip Chronic obstructive pulmonary disease (COPD) suggested by initial evaluation ([facility]) Dental caries Dental abscess Edentulous maxilla Partially edentulous mandible Status post right hip replacement Moderate persistent asthma with acute exacerbation Mild depression Severe anxiety Cough in adult New onset type 2 diabetes mellitus ([facility]) Congestion of respiratory tract Phlegm in throat Lipoma Acute hyperglycemia Acute kidney injury ([facility]) Atypical chest pain Chronic back pain greater than 3 months duration Chronic pain syndrome Asthma-COPD overlap syndrome ([facility]) COPD (chronic obstructive pulmonary disease) ([facility]) DKA (diabetic ketoacidosis) ([facility]) Encounter for preoperative pulmonary examination Environmental allergies GERD (gastroesophageal reflux disease) Hyperlipidemia Impingement syndrome, shoulder, left Intractable low back pain Lower extremity edema Morbid obesity ([facility]) Obesity Dyspnea on exertion Orthopnea Pulmonary nodules Spinal stenosis at L4-L5 level Spondylosis, lumbar, with myelopathy Spondylolisthesis, lumbar region Umbilical hernia, incarcerated Neurogenic claudication due to lumbar spinal stenosis Diabetes ([facility]) HTN (hypertension) Status post total hip replacement, right Impacted cerumen Review of Systems Constitutional: Negative for activity change and appetite change. HENT: Negative for tinnitus. Eyes: Negative for discharge. Gastrointestinal: Negative for abdominal distention. Musculoskeletal: Negative for arthralgias and neck pain. Skin: Negative for color change. Psychiatric/Behavioral: Negative for agitation. No Known Allergies Objective: Visit Vitals BP 115/79 (BP Location: Right arm, Patient Position: Sitting, BP Cuff Size: Large adult) Pulse 96 Temp 97.6 ??F (36.4 ??C) (Temporal) Resp 18 Ht 5' 8 (1.727 m) Wt 250 lb (113 kg) SpO2 97% BMI 38.01 kg/m?? Smoking Status Some Days BSA 2.33 m?? Physical Exam Vitals reviewed. Constitutional: Appearance: Normal appearance. He is obese. HENT: Head: Normocephalic. Right Ear: Tympanic membrane normal. Left Ear: There is impacted cerumen. Cardiovascular: Rate and Rhythm: Normal rate. Heart sounds: Normal heart sounds. Pulmonary: Breath sounds: Normal breath sounds. Abdominal: Palpations: Abdomen is soft. Musculoskeletal: Cervical back: Neck supple. Neurological: Mental Status: He is alert. Psychiatric: Mood and Affect: Mood normal. Assessment/Plan: Problem List Items Addressed This Visit New onset type 2 diabetes mellitus (CMS/[facility]) Relevant Orders POCT Glucose (Completed) POCT HGB A1C (Completed) Impacted cerumen - Primary Current Assessment & Plan Unable to effectively remove cerumen in clinic today Debrox prescribed, pt will Return to clinic for irrigation after 3 days of drops Current Outpatient Medications Medication Sig Dispense Refill acetaminophen (Tylenol 8 Hour) 650 MG ER tablet TAKE 1 TABLET BY MOUTH EVERY 8 HOURS NEEDED FOR MILD PAIN. DO NOT BREAK, CRUSH, DISSOLVE OR CHEW. 60 tablet 1 Advair Diskus 500-50 MCG/ACT aerosol powder INHALE 1 PUFF TWICE DAILY. RINSE MOUTH AFTER USING. albuterol (Ventolin HFA) 108 (90 Base) MCG/ACT inhaler INHALE 1 TO 2 PUFFS FOUR TIMES DAILY NEEDED FOR WHEEZING OR SHORTNESS OF BREATH 18 g 2 aspirin 81 MG chewable tablet Chew 1 tablet (81 mg) Once per day. 30 tablet 11 atorvastatin (Lipitor) 20 MG tablet TAKE 1 TABLET BY MOUTH EVERY MORNING 90 tablet 0 baclofen (Lioresal) 10 MG tablet TAKE 1 TABLET BY MOUTH THREE TIMES DAILY IN THE MORNING, AT NOON, AND AT BEDTIME NEEDED FOR MUSCLE SPASMS 60 tablet 1 Blood Pressure Monitoring (Omron 3 Series BP Monitor) device 1 each by Other route Once daily. USE TO CHECK BLOOD PRESSURE EVERY DAY, CALL MD IF > 170/100 1 each 0 Continuous Glucose [employer] Management Professor (FreeStyle Neel 2 Caliente) device Use to scan sensor at least every 8 hours, as directed, for CGM 1 each 0 Continuous Glucose Sensor (FreeStyle Neel 2 Sensor) [facility] Apply 1 sensor, as directed, every 14 days for CGM 2 each 11 Diclofenac Sodium 1 % gel Apply 2 g topically if needed in the morning, at noon, in the evening, and at bedtime (pain). 150 g 3 Dulaglutide (Trulicity) 1.5 MG/0.5ML solution auto-injector Inject 1.5 mg under the skin 1 (one) time per week. 2 mL 0 empagliflozin (Jardiance) 10 MG Take 1 tablet (10 mg) by mouth Once per day. 30 tablet 11 fluticasone (Flonase) 50 MCG/ACT nasal spray Administer 2 sprays into each nostril Once per day. Shake gently. Before first use, prime pump. After use, clean tip and replace cap. 16 g 2 glucose blood (FreeStyle Precision Luis Alberto Test) test strip Use to test blood sugar up to 2 times daily, as directed 100 each 11 hydrOXYzine pamoate (Vistaril) 25 MG capsule TAKE 1 CAPSULE BY MOUTH AT BEDTIME NEEDED FOR ITCHING 30 capsule 2 insulin degludec (Tresiba FlexTouch) 100 UNIT/ML injection Inject 20 Units under the skin at bedtime. 15 mL 2 insulin pen needle (Easy Touch Pen [place]) 32G x 4 mm misc Inject 1 each under the skin Once per day. Use 1 daily as directed for insulin administration methocarbamol (Robaxin) 750 MG tablet Take 1 tablet by mouth if needed in the morning, at noon, andat bedtime (pain). nicotine (Nicoderm CQ) 14 MG/24HR patch Place 1 patch on the skin 1 (one) time each day at the sametime. 30 patch 1 nicotine polacrilex (Commit) 4 MG lozenge DISSOLVE 1 LOZENGE BY MOUTH EVERY 1-2 HOURS NEEDED ANDAS DIRECTED. NO MORE THAN 20 PER DAY 144 lozenge 5 omeprazole (PriLOSEC) [address] capsule Take 40 mg by mouth in the morning. TRUEplus Lancets 33G misc Use to test blood sugar 2 time(s) daily 100 each 11 Umeclidinium [place]man (Incruse Ellipta) 62.5 MCG/ACT aerosol powder Inhale 1 each in the morning. 1 each 11 No current facility-administered medications for this visit. Visit Conducted in: Slovak Translation by: Provided by [facility] staff member Angie FARNSWORTH , documented in this encounter Miscellaneous Notes * Assessment & Plan Note - Lexi North NP - 09/19/2024 1:20 PM ESTAssociated Problem(s): Impacted cerumen Unable to effectively remove cerumen in clinic today Debrox prescribed, pt will Return to clinic for irrigation after 3 days of drops * Assessment & Plan Note - Lexi North NP - 09/19/2024 1:18 PM ESTAssociated Problem(s): Diabetes (CMS/[facility]) Due to increased weight and blood sugar despite compliance with nutrition and medications, will increased glp-1 and encouraged lifestyle changes including increased activity as tolerated Smoking cessation encouraged documented in this encounter Plan of Treatment Upcoming Encounters Date Type Department Care Team (Late st Contact Info) Description 10/28/2024 10:00 AM EST Medication Management [facility] [address] [place] [phone] Alicia Fuentes PharmD [address] [place] [address] [phone] 11/05/2024 11:00 AM EDT Office Visit [facility] [address] [place] [phone] Name, MD Scot [address] [place] [address] [phone] documented as of this encounter Goals Goal Patient Goal Type Associated Problems Recent Progress Patient-Stated? Author Smoking cessation General No Alicia Fuentes PharmD documented as of this encounter Procedures Procedure Name Priority Date/Time Associated Diagnosis Comments POCT GLYCATED HEMOGLOBIN, TOTAL Routine 09/10/2024 11:36 AM EST New onset type 2 diabetes mellitus ([facility]/HCC) POCT GLUCOSE Routine 09/10/2024 11:36 AM EST New onset type 2 diabetes mellitus ([facility]) documented in this encounter Results * (ABNORMAL) POCT HGB A1C (09/10/2024 11:36 AM EST) Hemoglobin A1C 7.8(A) 4.0 - 6.0 % QC Media Lot # [id number] Lot# Expiration Date 110,626 Blood 09/10/2024 11:3 6 AM EST Lexi North VICE PRESIDENT [employer] POINT OF CARE TEST ENTER/EDIT OR DERABLES Final Result * POCT Glucose (09/10/2024 11:36 AM EST) Glucose Blood, POC 91 60 - 200 mg/dL QC Media Lot # [id number] Lot# Expiration Date 110,626 Blood Capillary blood specimen / Unknown 09/10/2024 11:36 AM EST Lexi North VICE PRESIDENT [employer] POINT OF CARE TEST ENTER/EDIT OR DERABLES Final Result documented in this encounter Visit Diagnoses Diagnosis Impacted cerumen, unspecified laterality- Primary New onset type 2 diabetes mellitus (CMS/HCC) documented in this encounter Additional Health Concerns Assessment Noted Time PHQ-9 Depression Total Score: 15 024 10:43 AM EDT documented as of this encounter Care Teams Temperer Relationship Specialty Start Date End Date Name, MD Scot [address] [place] [phone] PCP - General Internal Medicine 08/16/22 Alicia Fuentes PharmD [address] [place] [phone] Pharmacist Internal Medicine 12/18/22 Alicia Fuentes PharmD [address] [place] [phone] Pharmacist Internal Medicine 07/28/24 Mian Gillette Customer Success RepresentativePleater Hand 12/29/23 [facility] 07/10/24 documented as of this encounter
--- OUTSIDE RECORDS SUMMARY | 2024-09-24 11:52 | XMS_ITS | Encounter Summary ---
Author Organization [employer] Address [address] [place] [address] Care Team Providers Care Urban Renewal Manager Name Role Phone Name, Scot SEARS Primary Care Provider [phone] Puia, Alicia PharmD Unavailable Puia, Alicia PharmD Unavailable [phone] Encounter Details Date Type Department Care Team ([facility] st Contact Info) Description 07/14/2023 Telephone [facility] [address] [place], [place] [phone] Name, MD Scot [address] [place], [place] [phone] Social History Tobacco Use Types Packs/Day Years Used Date Smoking Tobacco: Former Cigarettes 0.3 0.5 Smokeless Tobacco: Never Alcohol Use Standard Drinks/Week Comments Never 0 (1 standard drink = 0.6 oz pur e alcohol) Depression Answer Date Recorded Patient Health Questionnaire-9 Score 0 08/16/2022 Housing Stability Answer Date Recorded What is your housing situation today? I have gisella edwards 06/09/[address] you [...] Description 10/28/2024 10:00 AM EST Medication Management [facility] [address] [place] [phone] Alicia Fuentes PharmD [address] [place] [phone] 11/05/2024 11:00 AM EDT Office Visit [facility] [address] [place] [phone] NameScot MD [address] [place] [phone] documented as of this encounter Goals Goal Patient Goal Type Associated Problems Recent Progress Patient-Stated? Author Smoking cessation General No Alicia Fuentes PharmD documented as of this encounter Visit Diagnoses Not on filedocumented in this encounter Additional Health Concerns Assessment Noted Time PHQ-9 Depression Total Score: 0 08/16/20 22 9:25 AM EST documented as of this encounter Care Teams Urban Renewal Manager Relationship Specialty Start Date End Date NameScot MD [address] [place] [phone] PCP - General Internal Medicine 08/16/22 Alicia Fuentes PharmD [address] [place] [phone] Pharmacist Internal Medicine 12/18/22 Alicia Fuentes, AnkushD [address] [place] [address] [place] [id number] Pharmacist Internal Medicine 07/28/24 Mian Gillette Interlocking InstallerGis Instructor 12/29/23 [facility] 07/10/24 documented as of this encounter
--- OUTSIDE RECORDS SUMMARY | 2024-09-24 11:52 | XMS_ITS | Clinical Summary ---
Author Organization [employer] Address [address] [facility] [address] [place] [address] Care Team Providers Care Assistant Front End Manager Name Role Phone Name, Scot SEARS Primary Care Provider [phone] Puia, Alicia PharmD Unavailable Puia, Alicia PharmD Unavailable Allergies No known active allergies Medications * This document contains information received from the source organization and may not represent a complete record from that organization. Blood Pressure Monitoring (Omron 3 Series BP Monitor) deviceIndicatio ns:Primary hypertension 1 each by Other route Once daily. USE TO CHECK BLOOD PRESSURE EVERY DAY, CALL MD IF > 170/100 1 each 024 Active Umeclidinium [place] (Incruse Ellipta) 62.5 MCG/ACT aerosol powder Inhale 1 each in the morning. 1 each 024 2024 Active Diclofenac Sodium 1 % gel Apply 2 g topically if needed in the morning, at noon, in the evening, and at bedtime (pain). 150 g 3 024 Active baclofen (Lioresal) 10 MG tablet TAKE 1 TABLET BY MOUTH THREE TIMES DAILY IN THE MORNING, AT NOON, AND AT BEDTIME NEEDED FOR MUSCLE SPASMS 60 tablet 1 024 Active fluticasone (Flonase) 50 MCG/ACT nasal spray Administer 2 sprays into each nostril Once per day. Shake gently. Before first use, prime pump. After use, clean tip and replace cap. 16 g 2 024 2024 Active omeprazole (PriLOSEC) [address] capsule Take 40 mg by mouth in the morning. Active acetaminophen (Tylenol 8 Hour) 650 MG ER tablet TAKE 1 TABLET BY MOUTH EVERY 8 HOURS NEEDED FOR MILD PAIN. DO NOT BREAK, CRUSH, DISSOLVE OR CHEW. 60 tablet 1 Active nicotine polacrilex (Commit) 4 MG lozengeIndicati ons:Tobacco use DISSOLVE 1 LOZENGE BY MOUTH EVERY 1-2 HOURS NEEDED AND DIRECTED. NO MORE THAN 20 PER DAY 144 lozenge 5 Active atorvastatin (Lipitor) 20 MG tabletIndicatio ns:On statin therapy TAKE 1 TABLET BY MOUTH EVERY MORNING 90 tablet Active methocarbamol (Robaxin) 750 MG tablet Take 1 tablet by mouth if needed in the morning, at noon, and at bedtime (pain). Active aspirin 81 MG chewable tabletIndicatio ns:New onset type 2 diabetes mellitus (CMS/HCC) Chew 1 tablet (81 mg) Once per day. 30 tablet 11 024 2024 Active albuterol (Ventolin HFA) 108 (90 Base) MCG/ACT inhalerIndicati ons:Suspected chronic obstructive pulmonary disease based on initial evaluation (CMS/HCC) INHALE 1 TO 2 PUFFS FOUR TIMES DAILY NEEDED FOR WHEEZING OR SHORTNESS OF BREATH 18 g 2 Active Advair Diskus 500-50 MCG/ACT aerosol powder INHALE 1 PUFF TWICE DAILY. RINSE MOUTH AFTER USING. Active insulin pen needle (Easy Touch Pen [place]) 32G x 4 mm misc Inject 1 each under the skin Once per day. Use 1 daily as directed for insulin administration Active Continuous Glucose Facility Rehab Director (FreeStyle Neel 2 Raymond) deviceIndicatio ns:New onset type 2 diabetes mellitus (CMS/HCC) Use to scan sensor at least every 8 hours, as directed, for CGM 1 each Active Continuous Glucose Sensor (FreeStyle Neel 2 Sensor) miscIndications :New onset type 2 diabetes mellitus (CMS/HCC) Apply 1 sensor, as directed, every 14 days for CGM 2 each Active glucose blood (FreeStyle Precision Luis Alberto Test) test stripIndication s:New onset type 2 diabetes mellitus (CMS/HCC) Use to test blood sugar up to 2 times daily, as directed 100 each Active TRUEplus Lancets 33G miscIndications :New onset type 2 diabetes mellitus (CMS/HCC) Use to test blood sugar 2 time(s) daily 100 each Active empagliflozin (Jardiance) 10 MGIndications:N ew onset type 2 diabetes mellitus (CMS/HCC) Take 1 tablet (10 mg) by mouth Once per day. 30 tablet 11 Active nicotine (Nicoderm CQ) 14 MG/24HR patchIndication s:Tobacco dependence Place 1 patch on the skin 1 (one) time each day at the same time. 30 patch 1 024 2024 Active hydrOXYzine pamoate (Vistaril) 25 MG capsule TAKE 1 CAPSULE BY MOUTH AT BEDTIME NEEDED FOR ITCHING 30 capsule 2 Active insulin degludec (Tresiba FlexTouch) 100 UNIT/ML injectionIndica tions:New onset type 2 diabetes mellitus (CMS/HCC) Inject 20 Units under the skin at bedtime. 15 mL 2 Active Dulaglutide (Trulicity) 1.5 MG/0.5ML solution auto-injector Inject 1.5 mg under the skin 1 (one) time per week. 2 mL 025 2024 Active Trulicity 0.75 MG/0.5ML solution auto-injectorIn dications:New onset type 2 diabetes mellitus (CMS/HCC) INJECT ONE PEN (=0.75MG) SUBCUTANEOUSLY ONCE A WEEK DIRECTED 2 mL 024 2024 Discontinued carbamide peroxide (Debrox) 6.5 % otic solutionIndicat ions:Impacted cerumen, unspecified laterality Administer 3-5 drops into affected ear(s) 2 times daily for 4 days. 15 mL 025 2024 Active Problems Problem Noted Date Diagnosed Date Impacted cerumen 09/19/2024 Assessment & Plan (09/19/2024 1:20 PM EST): Unable to effectively remove cerumen in clinic today Debrox prescribed, pt will Return to clinic for irrigation after 3 days of drops Acute hyperglycemia 09/01/2024 Acute kidney injury 09/01/2024 Atypical chest pain 09/01/2024 Chronic back pain greater than 3 months duration 09/01/2024 Chronic pain syndrome 09/01/2024 Asthma-COPD overlap syndrome 09/01/2024 COPD (chronic obstructive pulmonary disease) 03/2025 DKA (diabetic ketoacidosis) 09/01/2024 Encounter for preoperative pulmonary examination 09/01/2024 Environmental allergies 09/01/2024 GERD (gastroesophageal reflux disease) Hyperlipidemia 09/01/2024 Impingement syndrome, shoulder, left 09/01/2024 Intractable low back pain 09/01/2024 Lower extremity edema 09/01/2024 Morbid obesity 09/01/2024 Obesity 09/01/2024 Dyspnea on exertion 09/01/2024 Orthopnea 09/01/2024 Pulmonary nodules 09/01/2024 Spinal stenosis at L4-L5 level 09/01/2024 Spondylosis, lumbar, with myelopathy 09/01/2024 Spondylolisthesis, lumbar region 09/01/2024 Umbilical hernia, incarcerated 09/01/2024 Neurogenic claudication due to lumbar spinal gloria nosis 09/01/2024 Diabetes 09/01/2024 Assessment & Plan (09/19/2024 1:18 PM EST): Due to increased weight and blood sugar despite compliance with nutrition and medications, will increased glp-1 and encouraged lifestyle changes including increased activity as tolerated Smoking cessation encouraged HTN (hypertension) 09/01/2024 Status post total hip replacement, right 025 Overview (09/01/2024): 08/2023 Lipoma 08/04/2024 Congestion of respiratory tract 07/21/2024 Assessment & Plan (07/21/2024 4:29 PM EST): Lung sounds clear, no recent illness, no fever, no chills Will send rx for Mucinex BID prn for 10 days for congestion/mucus build up Phlegm in throat 07/21/2024 Assessment & Plan (07/21/2024 4:33 PM EST): Lung sounds clear, denies recent illness, fever, chills Will send rx for Mucinex BID prn for congestion/mucus New onset type 2 diabetes mellitus 07/12/2024 Assessment & Plan (07/26/2024 8:49 AM EST): A1c 13.9 today Pt will discontinue Lantus 22 units BID Pt will start Tresiba 26 units, decision for 40% insulin dose reduction d/t lack of BG data and consideration for hypoglycemia risk. Referred to [facility] program, spoke with [facility] pharmacist who plans to f/u with patient in 1 week for Tresiba dose titration. Pt will start Trulicity 0.75 weekly injection Pt will continue to take BGs daily including one pre prandial measurement and will record in BG log to bring to f/u. Pt on Lipitor 20 mg ad Jardiance 10 mg Pt will start aspirin 81 mg tablet daily Pt plans to maintain adequate hydration (2-3L daily) Will complete ordered blood work in 1 week to monitor renal function F/u in 2 weeks with PCP Cough in adult 06/11/2024 Mild depression 10/24/2023 Assessment & Plan (10/24/2023 2:13 PM EST): PROGRESS NOTE: ID: Cameron is a 58 y.o. cis-male (pronouns he/him/his) with previous documented hx of Depression and Anxiety. History of MH services including OP Psychotherapy and psychopharmacology while he was incarcerated; who presents for Anxiety and Depression. Cameron lives alone, currently not working. Verbalized has multiple chronic health issues. During IBH Consult Cameron presenting with depressed mood, changes in sleep difficulty falling asleep and difficulty staying asleep , psychomotor agitation, trouble concentrating, fatigue/loss of energy, worthlessness , Hx of SI attempt single episode 15 years ago and excessive worry/anxiety, difficulty controlling worry, restless/keyed up/On edge, easily fatigued, difficulty concentrating/Mind going blank , irritability, muscle tension, and sleep disturbance difficulty falling asleep and difficulty staying asleep ; for a period of 18+ mo, for all symptoms in the context of Health issues, lack of social support, unable to work due to health issues and financial struggle. PLAN: New/Additional Services needed Off-site services for Behavioral Health Integration Plan External OP therapy referral and OP psychiatry Referral Patient Self Plan Patient to utilize skills provided in intervention , [facility], and Patient to reach out to [facility] as needed Severe anxiety 10/24/2023 Moderate persistent asthma with acute exacerbati on 10/15/2023 Assessment & Plan (02/03/2024 7:11 PM EDT): Rx PRD x 5d Advised to quit smoking, rx for nicotine gum sent to pharmacy. Continue max dose of advair and Incruse Fu with PCP and pulmonary Recons. prn if he develops ever, dark sputum, worsening cough or SOB. Assessment & Plan (01/06/2024 6:09 PM EDT): Most likely viral URI/smoking? Use albuterol inh 2 puffs q 4h x 2 d then prn Rx medrol pack, continue Incruse + Advair inh. Advised to quit smoking, he has nicotine gum to use prn. FU with PCP or earlier if sxs do not improve after completing medrol pack Status post right hip replacement 09/12/2023 Dental abscess 05/19/2023 Edentulous maxilla 05/19/2023 Partially edentulous mandible 05/19/2023 Dental caries 11/22/2022 Chronic obstructive pulmonar y disease (COPD) suggested by initial evaluation 11/19/2022 Assessment & Plan (06/19/2024 12:51 PM EDT): Will treat with prednisone, pt to Return to clinic For worsening symptoms, failure to resolve Tobacco use 08/16/2022 Overview (08/16/2022): 1 pack a day, started at age 17 Assessment & Plan (06/19/2024 12:51 PM EDT): Encouraged cessation Assessment & Plan (02/03/2024 7:11 PM EDT): Advised to quit Refilled nicotine gum to use prn. Illiteracy and low-level literacy 08/16/2022 Chronic pain of right knee 08/16/2022 Osteoarthritis of right hip 08/16/2022 Overview (11/19/2022): Marked right hip arthropathy as noted on hip radiographs. Degeneration of lumbar intervertebral disc 08/14 Primary hypertension 07/10/2022 Encounters Date Type Department Care Team Description 09/24/2024 Travel 09/17/2024 11:00 AM EST Clinical Support [address] [address] Marilyn Keenan RN Impacted cerumen, unspecified laterality 09/17/2024 Travel 09/16/[address] [address] Scot Mathews MD New onset type 2 diabetes mellitus (CMS/HCC) 09/10/2024 11:15 AM EST Office Visit [address] [address] Lexi North NP Impacted cerumen, unspecified laterality (Primary Dx); New onset type 2 diabetes mellitus (CMS/HCC) 09/10/2024 Travel 09/06/[address] [address] Brittany Mcclure MA Chart Prep 09/06/2024 Travel 09/02/2024 Orders Only GENERIC EXTERNAL DATA DEPARTMENT Provider, Generic External Data 09/01/[address] [address] Brittany Mcclure MA Chart Prep 09/01/[address] [address] Scot Mathews MD Appointment Request 08/27/[address] [address] Scot Mathews MD Nurse Triage 08/26/[address] [address] Scot Mathews MD Med Refill 08/13/2024 Telephone [facility] [place] [address] Scot Mathews MD Nurse Triage 08/12/2024 Orders Only [facility] External Provider, [facility] 08/12/2024 Telephone [facility] [place] [address] Marilyn Keenan, KENNEDY 08/11/2024 10:00 AM EST Clinical Support [facility] [place] [address] Sabina Laguna, KENNEDY Primary hypertension 08/11/2024 Travel 08/11/2024 [address] [place] [address] Clarissa Valentine ANP New onset type 2 diabetes mellitus (CMS/HCC) 08/04/2024 10:30 AM EST Clinical Support [facility] [place] [address] Marilyn Keenan, KENNEDY 08/04/2024 9:45 AM EST Office [address] [place] [address] Scot Mathews MD New onset type 2 diabetes mellitus (CMS/HCC) (Primary Dx); Low blood pressure reading; Lipoma, unspecified site 08/04/2024 Telephone [facility] [place] [address] Marilyn Keenan, KENNEDY 08/02/[address] [address] Brittany Mcclure MA Chart Prep 08/01/2024 Refill [facility] [place] [address] Scot Mtahews MD 07/30/2024 2:45 PM EST Office Visit [facility] [place] [address] Rianna Degroot NP Soft tissue mass (Primary Dx); Tobacco dependence 07/28/2024 9:30 AM EST Telemedicine [facility] [place] [address] Alicia Fuentes PharmD New onset type 2 diabetes mellitus (CMS/HCC) (Primary Dx) 07/28/[address] [address] Alicia Fuentes PharmD Prior Authorization (Freestyle Neel 2 reader, sensor, Luis Alberto test strips ) 07/26/[address] [address] Scot Mathews MD Nurse Triage 07/21/2024 2:45 PM EST Office Visit [address] [address] Maria Isabel Reed MD On statin therapy (Primary Dx); New onset type 2 diabetes mellitus (CMS/HCC); Dietary counseling; Exercise counseling; Suspected chronic obstructive pulmonary disease based on initial evaluation (CMS/HCC); Phlegm in throat 07/21/[address] [address] Scot Mathews MD 07/12/[address] [address] Scot Mathews MD FYI 07/09/2024 Patient Outreach [facility] [address] [place], [place] [id number] Scot Mathews MD Transition Of Care (Tcm) (HDF scheduled. SDOH was completed on 08/29/2023) 07/09/[address] [address] Scot Mathews MD Hospital Follow-up 07/06/2024 Refill [facility] [address] [place] [address] Scot Mathews MD On statin therapy 07/06/2024 Orders Only GENERIC EXTERNAL DATA DEPARTMENT Provider, Generic External Data 07/05/2024 5:20 PM EST Office Visit [facility] [address] [place] [address] Rianna Degroot NP Dizziness (Primary Dx); Elevated glucose level 07/05/2024 Orders Only GENERIC EXTERNAL DATA DEPARTMENT Provider, Generic External Data 06/30/[address] [address] Scot Mathews MD Nurse Triage from Last 3 Months Immunizations Name Administration Dates Next Due HepB-CpG 01/21/2023,12/18/2022 Influenza injectable quadriv alent IIV4 with preservative 05/14/2023 Influenza injectable quadrivalent preservative f ree 06/06/2022 Influenza, seasonal, injectable, preservative fr ee 06/11/2024 Moderna Covid-19 Vaccine 6+ Bivalent 12/25/2022 Pfizer Covid-19 Vaccine 12+ 09/24/2024, Pneumococcal Conjugate PCV 20 12/18/2022 Tdap 12/18/2022 Zoster, Recombinant 02/26/2023,12/18/2022 Social History Tobacco Use Types Packs/Day Years Used Date Smoking Tobacco: Some Days Cigarettes Smokeless Tobacco: Never Tobacco Cessation:Ready to Q uit: Not Asked; Counseling Given: Not Answered Alcohol Use Standard Drinks/Week Comments Never 0 [...] not to disclose 2021 10:40 AM EDT Last Filed Vital Signs Vital Sign Reading Time Taken Comments Blood Pressure 132/78 09/17/2024 11:00 AM EST Pulse 86 09/17/2024 11:00 AM EST Temperature 37.1 ??C (98.7 ??F) 09/17/2024 11:[address] Respiratory Rate 18 09/17/2024 11:00 AM EST Oxygen Saturation 96% 09/17/2024 11:00 AM EST Inhaled Oxygen Concentration - - Weight 113 kg (250 lb) 09/10/2024 11:33 AM EST Height 172.7 cm (5' 8 ) 09/10/2024 11:33 AM EST Body Mass Index 38.01 09/10/2024 11:33 AM EST Plan of Treatment Upcoming Encounters Date Type Department Care Team (Late st Contact Info) Description 10/28/2024 10:00 AM EST Medication Management [facility] [address] [place] [phone] Alicia Fuentes, PharmD [address] [place] [phone] 11/05/2024 11:00 AM EDT Office Visit [facility] [address] [place] [phone] Name, MD Scot [address] [place] [phone] Health Maintenance Due Date Last Done Comments CT Colonography 1965 Colonoscopy 1965 Colorectal Cancer Screening 1965 Dental Prophylaxis 1965 FIT DNA/Cologuard 1965 FIT 1965 FOBT 1965 Sigmoidoscopy 1965 Diabetes: Foot Exam 1975 Hepatitis A Vaccines (1 of 2 - Risk 2-dose series) 1984 Dental Oral Exam 02/28/2023 08/30/2022 Dental X-Ray: Bitewings 08/31/2023 08/30/2022 Depression Monitoring (PHQ-9) 10/28/2024 04/30/2024, 04/30/2024 Diabetes: Hemoglobin A1C 12/09/2024 025, 07/21/2024, 04/30/2024, Additional history exists Eye Exam 03/17/2025 03/17/2023, 02/23, 03/17/2023, Additional history exists Depression Screening 04/30/2025 04/30/2024, 04/30/20 Alcohol/Substance Use Screening 07/21/2025 07/21/2024 Diabetes: Urine Protein Screening 07/30/2025 07/30/2024 Lipid Panel 07/30/2025 07/30/2024, 01/24, 11/21/2022, Additional history exists Dental X-Ray: Full Mouth 08/31/2025 08/30/2022 SDOH Screening 09/10/2025 09/10/2024 Tobacco Screening 09/10/2025 09/10/2024 DTaP/Tdap/Td Vaccines (2 - Td or Tdap) 12/18/2032 12/18/2022 RSV Patients and Patients Aged 60 years or older (1 - 1-dose 75+ series) 2040 Pneumococcal Vaccine: 50+ Years Completed 12/18/2022 Hepatitis B Vaccines Completed 01/21/2023, 12/19/19 Zoster Vaccines Completed 02/26/2023, 12/18/2022 HIV Screening Completed 11/05/2023 Hepatitis C Screening Completed 11/05/2023 Influenza Vaccine Completed 06/11/2024, , 06/06/2022 COVID-19 Vaccine Completed 09/24/2024, 09/2022, 12/25/2022 HIB Vaccines Aged Out No longer eligi ble based on patient's age to complete this topic HPV Vaccines Aged Out No longer eligi ble based on patient's age to complete this topic IPV Vaccines Aged Out No longer eligi ble based on patient's age to complete this topic Meningococcal Vaccine Aged Out No valerie allegra eligible based on patient's age to complete this topic RSV under 20 months Aged Out No longe r eligible based on patient's age to complete this topic Rotavirus Vaccines Aged Out No longer eligible based on patient's age to complete this topic Goals Goal Patient Goal Type Associated Problems Recent Progress Patient-Stated? Author Smoking cessation General No Alicia Fuentes, Bob Procedures Procedure Name Priority Date/Time Associated Diagnosis Comments [place] REMOVAL IMPACTED CERUMEN IRRIGATION/LVG UNILAT Routine 09/17/2024 11:16 AM EST Impacted cerumen, unspecified laterality POCT GLYCATED HEMOGLOBIN, TOTAL Routine 09/10/2024 11:36 AM EST New onset type 2 diabetes mellitus (CMS/HCC) POCT GLUCOSE Routine 09/10/2024 11:36 AM EST New onset type 2 diabetes mellitus (CMS/HCC) GROSS AND MICROSCOPIC LEVEL 3 Routine 09/02/2024 2:[address] CHEST WO CONTRAST Routine 08/12/2024 2:07 PM EST US EXTREMITY NON-VASCULAR Routine 08/05/2024 12:07 PM EST POCT GLUCOSE Routine 08/04/2024 9:53 AM EST New onset type 2 diabetes mellitus (CMS/HCC) BASIC METABOLIC PANEL Routine 07/30/2024 4:03 PM EST New onset type 2 diabetes mellitus (CMS/HCC) ALBUMIN, RANDOM URINE W/CREATININE Routine 07/30/2024 4:03 PM EST New onset type 2 diabetes mellitus (CMS/HCC) LIPID PANEL, STANDARD Routine 07/30/2024 4:03 PM EST On statin therapy POCT GLYCATED HEMOGLOBIN, TOTAL Routine 07/21/2024 9:35 AM EST New onset type 2 diabetes mellitus (CMS/HCC) VENOUS BLOOD GAS Routine 07/06/2024 1:02 AM EST BASIC METABOLIC PANEL Routine 07/06/2024 12:59 AM EST CBC Routine 07/06/2024 12:59 AM EST GLUCOSE, WHOLE BLOOD Routine 07/06/2024 12:33 AM EST GLUCOSE, WHOLE BLOOD Routine 07/05/2024 11:21 PM EST GLUCOSE, WHOLE BLOOD Routine 07/05/2024 10:07 PM EST XR CHEST 1 VIEW Routine 07/05/2024 9:30 PM EST DRUG MONITOR, PANEL 1, SCREEN, URINE Routine 07/05/2024 9:10 PM EST URINALYSIS, COMPLETE, WITH REFLEX TO CULTURE Routine 07/05/2024 9:10 PM EST URINALYSIS WITH REFLEX MICROSCOPIC Routine 07/05/2024 9:10 PM EST VENOUS BLOOD GAS Routine 07/05/2024 8:09 PM EST POCT URINALYSIS DIPSTICK Routine 07/05/2024 6:51 PM EST Dizziness POCT GLUCOSE Routine 07/05/2024 6:51 PM EST Dizziness HEPATITIS C ANTIBODY Routine 11/05/2023 8:18 AM EDT Need for hepatitis C screening test HIV 1/2 ANTIGEN/ANTIBODY, FOURTH GENERATION W/RFL Routine 11/05/2023 8:18 AM EDT Encounter for screening for HIV DIAGNOSTIC - DIAGNOSTIC IMAGING - INTRAORAL - COMPREHENSIVE SERIES OF RADIOGRAPHIC IMAGES Routine 08/30/2022 8:00 AM EST COMPREHENSIVE ORAL EVALUATION - NEW OR ESTABLISHED PATIENT Routine 08/30/2022 8:00 AM EST from Last 3 Months or Most Recently Relevant to Health Maintenance Results * NJ REMOVAL IMPACTED CERUMEN IRRIGATION/LVG UNILAT (09/17/2024 11:16 AM EST) Narrative Marilyn Keenan RN - 09/17/2024 11:16 AM EST Marilyn Keenan RN ? 09/17/2024 ??1:56 PM Ear Cerumen Removal Date/Time: 09/17/2024 11:16 AM Performed by: Marilyn Keenan RN Authorized by: Scot Mathews MD ?? Consent: ??Consent obtained: ??Verbal ??Consent given by: ??Patient ??Risks, benefits, and alternatives were discussed: yes ?Risks discussed: ??Incomplete removal and dizziness Procedure details: ??Location: ??L ear and R ear ??Procedure type: irrigation ?Procedure outcomes: cerumen removed ?? Post-procedure details: ??Inspection: ??Ear canal clear and TM intact ??Hearing quality: ??Normal ??Procedure completion: ??Tolerated Scot Mathews MD IN CLINIC/BEDSIDE ORDERABLES Fin al Result * (ABNORMAL) POCT HGB A1C (09/10/2024 11:36 AM EST) Only the most recent of2 resultswithin the time period is included. Hemoglobin A1C 7.8(A) 4.0 - 6.0 % QC Media Lot # [id number] Lot# Expiration Date 110,626 Blood 09/10/2024 11:3 6 AM EST Lexi North NP POINT OF CARE TEST ENTER/EDIT OR DERABLES Final Result * POCT Glucose (09/10/2024 11:36 AM EST) Only the most recent of3 resultswithin the time period is included. Glucose Blood, POC 91 60 - 200 mg/dL QC Media Lot # [id number] Lot# Expiration Date 110,626 Blood Capillary blood specimen / Unknown 09/10/2024 11:36 AM EST Lexi North NP POINT OF CARE TEST ENTER/EDIT OR DERABLES Final Result * Gross and Microscopic Level 3 (09/02/2024 2:15 PM EST) 09/02/2024 2:15 PM EST 09/02/2024 2:30 PM EST Ilir [facility] - 09/06/2024 10:22 AM EST ----- ------- Name: Cameron Calderon ? Age/Sex: 59/M ? : 1965 Unit#: [id number] ?? Attend Dr: Cesar Humphries MD ?Re09/02/24 ?Status: DEP REF ? Location: HO.LNP ?Disch: ? ----- ------- SPEC : [id number] ?RECD: 09/02/24-1040 ? STATUS: ??SOUT ? REQ NUM: [id number] ? BRIA: 09/02/24-1415 ? SUBM DR: Cesar Humphries MD ? ENTERED: ??09/02/24 ?SP TYPE: Surgical ? OTHR DR: Scot [...] No hemorrhagic or necrotic foci are identified. ??Director Trial sections are submitted in cassettes A1-A3. ??CEDS This case was reviewed intradepartmentally. Copies To: ?? Cesar Humphries MD ?? [facility] [place] [facility] Sur[facility] ?? [address] [facility] ?? [place] [address] ?? [phone] ?? Scot Mathews MD ?? [address] ?? [place] [address] ?? [phone] ----- ------- Signed (signature on file) Reinier Farmer MD 09/06/24 1022 ? ----- ------- ? END OF REPORT ? us Generic External Data Provider LAB CYTOLOGY JANEEN MI Final Result [facility] [address] [place] [address] [phone] * CT Chest w/o Contrast (08/12/2024 2:07 PM EST) Anatomical Region Laterality Modality Body, Chest Computed Tomogra phy 08/12/2024 2:07 PM EST Narrative 09/22/2024 11:09 AM EST ? [facility] ?[address] ?[place] [address] ? CT Scan Report ? Signed ? Patient: Calderon,Rasta ?MR#: [id number] ?? 14 ? : 1965 ?Acct:[id number] ? Age/Sex: 59 / M ?ADM Date: 12/19/24 ? Loc: HO.CT ? Attending Dr: Russ Quiñonez MD ? Ordering Physician: Russ Quiñonez MD ?? Date of Service: 08/12/24 ?? Procedure(s): CT chest wo IV con ?? Accession Number(s): [id number] ? cc: Name,Scot SEARS; Russ Quiñonez MD ? Report Number: ?? [id number]: Total DLP = ??202.00 mGy-cm ?? EXAMINATION: ?? CT CHEST WITHOUT CONTRAST ? CLINICAL INFORMATION: ?? Pulmonary nodules. ? COMPARISON: ?? CT dated August 13, 2023. ? TECHNIQUE: ?? Multidetector volumetric CT imaging of the chest was done. Axial MIP ?? volume rendering provided. Sagittal and coronal reformatted images were ?? obtained. ? This CT examination was performed using dose optimization techniques as ?? appropriate, variously including the following: ?? *Automated exposure control ?? *Adjustment of mA and/or kV according to patient size (this includes ?? techniques or standardized protocols for targeted exams where dose is ?? matched to indication/reason for exam; i.e. extremities or head) ?? *Use of iterative reconstruction technique. ?? DLP: 202 mGy centimeter. ? FINDINGS: ? Submitted for interpretation on September 22, 2024. ? 8 mm well-circumscribed noncalcified pulmonary nodule, right lower ?? lung lobe. ?? Nonspecific pulmonary groundglass, lower lung lobes and to a lesser ?? extent upper lungs. ?? No pleural effusion or pneumothorax. ?? Mediastinal lymphadenopathy with a fatty hilum, the largest in the ?? right pretracheal region measures 1.4 cm. ?? No aneurysm in the thoracic aorta. ? Calcified plaques in the thoracic aortic arch and its main branches and ?? the coronary arteries. ?? No pericardial effusion. ?? Nodule right fractures versus thoracotomy in the right hemithorax. ?? Multilevel thoracic spondylosis without acute fracture or listhesis. No ?? lytic or blastic lesions. ?? There is a 2 cm hypodensity in the right hepatic lobe. ? CT/CT chest wo IV con ?? IMPRESSION: ?? 8 mm noncalcified pulmonary nodule, right lower lung lobe and ?? mediastinal lymphadenopathy. Overall stable. ? Fleischner guidelines were followed. ? Electronically signed by: ??Shane Weiner MD ??09/22/2024 11:06 AM ?? EST RP ? Dictated By: ?Shane Lopez MD ? Signed By: ?<Electronically signed by Shane Callahan MD in OV> ? 09/22/24 1106 ? DD/ 1407 ? TD/TT: 08/12/24 1415 ? [employer]: ? Procedure Note Donotuseinterpreter, Image - 09/22/[address] [address] [address] Scan Report Signed Patient: Cameron Calderon MMR#: [id number] 14 : 1965Acct:[id number] Age/Sex: 59 / MADM Date: 08/12/24 Loc: HO.CT Attending Dr: Russ Quiñonez MD Ordering Physician: Russ Quiñonez MD Date of Service: 08/12/24 Procedure(s): CT chest wo IV con Accession Number(s): [id number] cc: Scot Mathews MD; Russ Quiñonez MD Report Number: [id number]: Total DLP = 202.00 mGy-cm EXAMINATION: CT CHEST WITHOUT CONTRAST CLINICAL INFORMATION: Pulmonary nodules. COMPARISON: CT dated August 13, 2023. TECHNIQUE: Multidetector volumetric CT imaging of the chest was done. Axial MIP volume rendering provided. Sagittal and coronal reformatted images were obtained. This CT examination was performed using dose optimization techniques as appropriate, variously including the following: *Automated exposure control *Adjustment of mA and/or kV according to patient size (this includes techniques or standardized protocols for targeted exams where dose is matched to indication/reason for exam; i.e. extremities or head) *Use of iterative reconstruction technique. DLP: 202 mGy centimeter. FINDINGS: Submitted for interpretation on September 22, 2024. 8 mm well-circumscribed noncalcified pulmonary nodule, right lower lung lobe. Nonspecific pulmonary groundglass, lower lung lobes and to a lesser extent upper lungs. No pleural effusion or pneumothorax. Mediastinal lymphadenopathy with a fatty hilum, the largest in the right pretracheal region measures 1.4 cm. No aneurysm in the thoracic aorta. Calcified plaques in the thoracic aortic arch and its main branches and the coronary arteries. No pericardial effusion. Nodule right fractures versus thoracotomy in the right hemithorax. Multilevel thoracic spondylosis without acute fracture or listhesis. No lytic or blastic lesions. There is a 2 cm hypodensity in the right hepatic lobe. CT/CT chest wo IV con IMPRESSION: 8 mm noncalcified pulmonary nodule, right lower lung lobe and mediastinal lymphadenopathy. Overall stable. Fleischner guidelines were followed. Electronically signed by: Shane Weiner MD 09/22/2024 11:06 AM EST RP Dictated By: Shane Lopez MD Signed By: <Electronically signed by Shane Callahan MDin OV> 09/22/24 1106 DD/ 1407 TD/TT: 08/12/24 1415 Laborer Stores: [facility] External Provider IMG CT PROCEDURES Edited Result - Final * US Extremity Non Vascular (08/05/2024 12:07 PM EST) Anatomical Region Laterality Modality Ultrasound 08/05/2024 12:0 7 PM EST Narrative 08/06/2024 9:22 AM EST ? [facility] ?[address] ?[place] [address] ? Ultrasound Report ? Signed ? Patient: Cameron Calderon ?MR#: [id number] ?? 14 ? : 1965 ?Acct:[id number] ? Age/Sex: 59 / M ?ADM Date: 08/05/24 ? Loc: HO.US ? Attending Dr: Rianna Degroot ? Ordering Physician: Rianna Degroot ?? Date of Service: 08/05/24 ?? Procedure(s): US extremity nonvascular ?? Accession Number(s): [id number] ? cc: Rianna Degroot ? EXAMINATION: ?? ULTRASOUND RIGHT SHOULDER ? CLINICAL INDICATION: ?? Painless mass with rapid increase in size over the past 2 weeks. ? COMPARISON: ?? CT chest 08/13/2023. ? TECHNIQUE: ?? High frequency linear ultrasound transducer was used to examine the ?? area of clinical concern. ? FINDINGS: ?? There is an isoechoic mass with minimal vascularity seen measuring 5.3 ?? x 1.7 x 5.2 cm. Echogenicity characteristics are suggestive of a ?? lipoma. No other masses or fluid collections are seen. ? US/US extremity nonvascular ?? IMPRESSION: ?? Probable lipoma. If a diagnosis of absolute certainty is needed, MRI ?? would be the exam of choice. ? Electronically signed by: ??Rk Gutierrez MD ??08/06/2024 09:20 AM EST ? Dictated By: ?Rk Gutierrez MD ? Signed By: ?<Electronically signed by Rk Gutierrez MD in OV> ? 08/06/24 0920 ? DD/ 1207 ? TD/TT: 08/05/24 1213 ? [employer]: SS ? Procedure Note Donotuseinterpreter, Image - 08/06/2024 [place] [address] Ultrasound Report Signed Patient: Caemron Calderon MMR#: [id number] 14 : 1965Acct:[id number] Age/Sex: 59 / MADM Date: 08/05/24 Loc: HO.US Attending Dr: Rianna Degroot Ordering Physician: Rianna Degroot Date of Service: 08/05/24 Procedure(s): US extremity nonvascular Accession Number(s): [id number] cc: Rianan Degroot EXAMINATION: ULTRASOUND RIGHT SHOULDER CLINICAL INDICATION: Painless mass with rapid increase in size over the past 2 weeks. COMPARISON: CT chest 08/13/2023. TECHNIQUE: High frequency linear ultrasound transducer was used to examine the area of clinical concern. FINDINGS: There is an isoechoic mass with minimal vascularity seen measuring 5.3 x 1.7 x 5.2 cm. Echogenicity characteristics are suggestive of a lipoma. No other masses or fluid collections are seen. US/US extremity nonvascular IMPRESSION: Probable lipoma. If a diagnosis of absolute certainty is needed, MRI would be the exam of choice. Electronically signed by: Rk Gutierrez MD 08/06/2024 09:20 AM EST Dictated By: Rk Gutierrez MD Signed By: <Electronically signed by Rk Gutierrez MD in OV> 08/06/24 0920 DD/ 1207 TD/TT: 08/05/24 1213 [employer]: SS us Rianna Degroot [employer]USTRI[employer] METHODS CONSULTANT IMG US PROCEDURES Final Result * Albumin, Random Urine W/Creatinine (07/30/2024 4:03 PM EST) Creatinine, Urine 122.34 mg/dL [facility] Microalbumin Urine 14.0 mg/L H [facility] Microalbum Creatinine Ratio Ur 11.4 <30 ug/mg cr [facility] Comment:Albumin/Creatinine R atio Reference Ranges: Normal: < 30 ug/mg creatinine Microalbuminuria: 30 - 300 ug/mg creatinineClinical Albuminuria: > 300 ug/mg creatinine Urine (Urine, Random) 07/30/2024 4:03 PM EST 07/30/2024 5:39 PM EST us Lexi North NP LAB URINE ORDERABLES Final Resul t [facility] [address] [place] [phone] * (ABNORMAL) Lipid Panel, Standard (07/30/2024 4:03 PM EST) Triglycerides 339(H) <150 mg/dL [facility] Comment:Desirable Triglyceri de: less than 150 mg/dLBorderline High Triglyceride 150-199 mg/dLHigh Triglyceride: 200-499 mg/dLVery High Triglyceride: greater than or equal to 5OO mg/dL Cholesterol 237(H) <200 mg/dL [facility] Comment:Desirable Cholestero l: less than 200 mg/dLBorderline High Cholesterol: 200-239 mg/dLHigh Cholesterol: greater than 239 mg/dL LDL Cholesterol Calculated 140(H) <100 mg/dL [facility] Comment:Desirable LDL: less than 100 mg/dLNear Optimal/Above Optimal LDL: 110- 129 mg/dLBorderline High LDL: 130-159 mg/dLHigh LDL: 160-189 mg/dLVery High LDL: greater than or equal to 190 mg/dL HDL Cholesterol 30(L) >40 mg/dL [facility] Comment:Desirable HDL: great er than 40 mg/dL Note: This HDL assay may give artificially low results in patients with liver disease. Blood Venous blood specimen / Unknown 07/30/2024 4:03 PM EST 07/30/2024 5:39 PM EST us Lexi North NP LAB BLOOD ORDERABLES Final Resul t Performing Organization Address [facility] Co de Phone Number [facility] [address] [place] [phone] * (ABNORMAL) Basic Metabolic Panel (07/30/2024 4:03 PM EST) Only the most recent of2 resultswithin the time period is included. Sodium 138 135 - 145 mmol/L [facility] Potassium 4.0 3.3 - 5.1 mmol/L [facility] Chloride 104 96 - 108 mmol/L [facility] Carbon Dioxide 25 22 - 29 mmol/L [facility] Anion Gap 13 12 - 20 [facility] Urea Nitrogen (BUN) 21(H) 9 - 16 mg/dL [facility] Creatinine, Serum 1.44(H) 0.5 - 1.4 mg/dL [facility] Estimated Glomerular Filt Rate 50 [facility] Comment:Chronic Kidney Disea se: Estimated GFR < 60 mL/min/1.10g5Ytgylm Kidney Disease: Estimated GFR < 15 mL/min/1.73m2 Glucose 97 60 - 115 mg/dL [facility] Calcium 9.6 8.4 - 10.2 mg/dL [facility] Blood Venous blood specimen / Unknown 07/30/2024 4:03 PM EST 07/30/2024 5:39 PM EST us Lexi North NP LAB BLOOD ORDERABLES Final Resul t Performing Organization Address [facility] Co de Phone Number [facility] [address] [place] [phone] * VENOUS BLOOD GAS (07/06/2024 1:02 AM EST) Only the most recent of2 resultswithin the time period is included. VBG pH 7.36 7.32 - 7.43 [facility] Comment:METER #: [id number] additional_comment: Adalberto baez VBG PCO2 41 mmHg [facility] Comment:METER #: [id number] additional_comment: Adalberto baez VBG PO2 104 mmHg [facility] Comment:METER #: [id number] additional_comment: Adalberto baez VBG Base Excess -1.2 mmol/L [facility] Comment:METER #: [id number] additional_comment: Adalberto LINDSAYG HCO3 24 22 - 26 mmol/L [facility] Comment:METER #: [id number] additional_comment: Adalberto baez O2 Sat, Rich 99.0 % [facility] Comment:METER #: [id number] additional_comment: Adalberto baez 07/06/2024 1:02 AM EST 07/06/2024 1:07 AM EST us Generic External Data Provider LAB BLOOD ORDERAB LES Final Result [facility] [address] [place] [phone] * (ABNORMAL) CBC (07/06/2024 12:59 AM EST) Pathologist [facility] White Blood Count 9.0 4.8 - 10.8 X10*3/uL [facility] Red Blood Count 4.58(L) 4.60 - 5.80 X10*6/uL [facility] Hemoglobin 13.1(L) 14.0 - 18.0 g/dl [facility] Hematocrit 38.1(L) 42.0 - 52.0 % [facility] Mean Corpuscular Volume 83.2 80.0 - 98.0 fL [facility] Mean Corpuscular Hemoglobin 28.6 27.0 - 33.0 pg [facility] Mean Corpuscular HGB Conc 34.4 31.0 - 36.0 g/dl [facility] Red Cell Distribution Width 14.6 11.0 - 16.0 % [facility] Platelet Count 305 160 - 400 X10*3/uL [facility] Mean Platelet Volume 9.4 9.4 - 12.4 fL [facility] NRBC Pct Auto 0.0 0.0 - 0.2 /100WBC [facility] NRBC Abs Auto 0.000 0.0 - 0.012 X10*3/uL [facility] 07/06/2024 12:5 9 AM EST 07/06/2024 1:02 AM EST Generic External Data Provider LAB BLOOD ORDERAB LES Final Result Performing Organization Address [facility] de Phone Number [facility] [address] [place] [address] [phone] * (ABNORMAL) Glucose, Whole Blood (07/06/2024 12:33 AM EST) Only the most recent of3 resultswithin the time period is included. Glucose, Whole Blood 315(H) 60 - 115 mg/dL [facility] Comment:METER #: [id number] 07/06/2024 12:3 3 AM EST 07/06/2024 12:40 AM EST us Generic External Data Provider LAB BLOOD ORDERAB LES Final Result Performing Organization Address [facility] de Phone Number [facility] [address] [place] [address] [phone] * XR Chest 1 View (07/05/2024 9:30 PM EST) Anatomical Region Laterality Modality Chest Radiographic Jackie ging 07/05/2024 9:30 PM EST Narrative 07/05/2024 11:30 PM EST ? [place] [facility] ?[address] ?[place] [address] ?XRay Report ? Signed ? Patient: Calderon,Rasta ?MR#: [id number] ?? 14 ? : 1965 ?Acct:[id number] ? Age/Sex: 59 / M ?ADM Date: 07/05/24 ? Loc: HO.ED ? Attending Dr: ? Ordering Physician: Giorgio Mccollum MD ?? Date of Service: 07/05/24 ?? Procedure(s): XR chest 1V ?? Accession Number(s): [id number] ? cc: Giorgio Mccollum MD; Name,Scot SEARS ? EXAMINATION: ?? XR CHEST ? CLINICAL INFORMATION: ?? Chest pain ? COMPARISON: ?? Chest radiograph 03/16/2024 10:18 AM. ? TECHNIQUE: ?? Frontal view of the chest was obtained. ? FINDINGS: ?? Normal appearance of the cardiomediastinal structures. Pleura normal ?? pattern of pulmonary vasculature. No focal pulmonary consolidation. ? XR/XR chest 1V ?? IMPRESSION: ?? No acute cardiopulmonary abnormalities. ? Electronically signed by: ??Chencho Lozoya MD ??07/05/2024 11:26 PM EST RP ? Dictated By: ?Chencho Lozoya MD ? Signed By: ?<Electronically signed by Chencho Lozoya MD in OV> ? 07/05/24 2326 ? DD/ 29 ? TD/TT: 07/05/242134 ? [employer]orer Stores: EF ? Procedure Note Riya Rader - 07/05/2024 [place] [address] XRay Report Signed Patient: Cameron Calderon [facility]#: [id number] 14 : 1965Acct:[id number] Age/Sex: 59 / MADM Date: 07/05/24 Loc: HO.ED Attending Dr: Ordering Physician: Giorgio Mccollum MD Date of Service: 07/05/24 Procedure(s): XR chest 1V Accession Number(s): [id number] cc: Giorgio Mccollum MD; Name,Scot SEARS EXAMINATION: XR CHEST CLINICAL INFORMATION: Chest pain COMPARISON: Chest radiograph 03/16/2024 10:18 AM. TECHNIQUE: Frontal view of the chest was obtained. FINDINGS: Normal appearance of the cardiomediastinal structures. Pleura normal pattern of pulmonary vasculature. No focal pulmonary consolidation. XR/XR chest 1V IMPRESSION: No acute cardiopulmonary abnormalities. Electronically signed by: Chencho Lozoya MD 07/05/2024 11:26 PM EST Dictated By: Chencho Lozoya MD Signed By: <Electronically signed by Chencho Lozoya MD in OV> 07/05/242325 DD/ 29 TD/TT: 07/05/242134 [employer]orer Stores: EF [facility] External Provider IMG XR PROCEDURES Edited Result - Final * (ABNORMAL) Urinalysis, Complete, with Reflex to Culture (07/05/2024 9:10 PM EST) Color Urine Yellow [facility] Appearance Urine Clear [facility] PH 5.5 5.0 - 9.0 [facility] Glucose Urine UA >=1000(A) Negative mg/dL [facility] Urine Blood Negative Negative [facility] Specific [place] - Urine 1.025 1.005 - 1.025 [facility] Urine Protein Negative Neg-Trace mg/dL [facility] Urine Ketones 40 Negative mg/dL [facility] Nitrite Urine Negative Negative [facility] Leukocyte Esterase Urine Negative Negative [facility] RBC Urine 0-2 0 - 2 /HPF [facility] Urine WBC 0-5 0 - 5 /HPF [facility] Urine Squamous Epithelial Cell 0-2 0 - 2 /HPF [facility] Urine Bacteria None Seen None Seen [facility] Hyaline Casts, Urine 11-20 0 - 2 /LPF [facility] 07/05/2024 9:10 PM EST 07/05/2024 9:14 PM EST Narrative [facility] - 07/05/2024 9:54 PM EST Urine, Clean Catch Generic External Data Provider LAB URINE ORDERAB LES Final Result [facility] [address] [place] [phone] * Drug Monitoring, Panel 1, Screen, Urine (07/05/2024 9:10 PM EST) Opiate Screen Urine Not Detected Not Detect [facility] Comment:Opiate cut-off is 30 0 ng/mL.Positive results are unconfirmed and should not be used fornon-medical purposes. Barbiturates, Urine Not Detected Not Detect [facility] Comment:Barbiturate cut-off is 200 ng/mL.Positive results are unconfirmed and should not be used fornon-medical purposes. Phencyclidine Screen Urine Not Detected Not Detect [facility] Comment:Phencyclidine cut-of f is 25 ng/mL.Positive results are unconfirmed and should not be used fornon-medical purposes. Amphetamine Screen Urine Not Detected Not Detect [facility] Comment:Amphetamine cut-off is 1000 ng/mL.Positive results are unconfirmed and should not be used fornon-medical purposes. Benzodiazepines Screen Urine Not Detected Not Detect [facility] Comment:Benzodiazepine cut-o ff is 200 ng/mL.Positive results are unconfirmed and should not be used fornon-medical purposes. Cocaine Screen Urine Not Detected Not Detect [facility] Comment:Cocaine cut-off is 3 00 ng/mL.Positive results are unconfirmed and should not be used fornon-medical purposes. Cannabinoid Screen Urine Not Detected Not Detect [facility] Comment:Cannabinoid cut-off is 50 ng/mL.Positive results are unconfirmed and should not be used fornon-medical purposes. Methadone Screen, Urine Not Detected Not Detect ng/mL [facility] Comment:Methadone cut-off is 300 ng/mL.Positive results are unconfirmed and should not be used fornon-medical purposes. FENTANYL URINE Not Detected Not Detect [facility] Comment:Fentanyl cut-off is 1 ng/mL.Positive results are unconfirmed and should not be used fornon-medical purposes. Oxycodone Urine Screen Not Detected Not Detect ng/mL [facility] Comment:Oxycodone cut-off is 100 ng/mL.Positive results are unconfirmed and should not be used fornon-medical purposes. Buprenorphine Screen Not Detected Not Detect ng/mL [facility] Comment:Buprenorphine cut-of f is 5 ng/mL.Positive results are unconfirmed and should not be used fornon-medical purposes. 07/05/2024 9:10 PM EST 07/05/2024 11:22 PM EST Generic External Data Provider LAB URINE ORDERAB LES Final Result Performing Organization Address [facility] Co de Phone Number [facility] [address] [place] [phone] * (ABNORMAL) Urinalysis w/reflex microscopic (07/05/2024 9:10 PM EST) Color Urine Yellow [facility] Appearance Urine Clear [facility] PH 5.5 5.0 - 9.0 [facility] Glucose Urine UA >=1000(A) Negative mg/dL [facility] Urine Blood Negative Negative [facility] Specific [place] - Urine 1.025 1.005 - 1.025 [facility] Urine Protein Negative Neg-Trace mg/dL [facility] Urine Ketones 40 Negative mg/dL [facility] Nitrite Urine Negative Negative [facility] Leukocyte Esterase Urine Negative Negative [facility] 07/05/2024 9:10 PM EST 07/05/2024 9:14 PM EST Narrative [facility] - 07/05/2024 9:35 PM EST Urine, Clean Catch us Generic External Data Provider LAB URINE ORDERAB LES Final Result Performing Organization Address [facility] Co de Phone Number [facility] [address] [place] [phone] * POCT urinalysis dipstick manually resulted (07/05/2024 6:51 PM EST) Color, UA Yellow Clarity, UA Clear Glucose, UA Many Comment:1000mg/dL Bilirubin, UA Trace Comment:small Ketones, UA Positive Comment:40mg/dL Spec Grav, UA 1.010 Blood, UA Negative Negative, None Detected pH, UA 5.5 Protein, UA Negative Urobilinogen, UA 0.2 Leukocytes, UA Negative Negative, Rare, Trace Nitrite, UA Negative Negative, None Detected Appearance, UA clear QC Media Lot # [id number] Lot# Expiration Date [id number] Urine 07/05/2024 6:51 PM EST Rianna Degroot NP POINT OF CARE TEST ENTER/EDIT O RDERABLES Final Result * Hepatitis C Ab (11/05/2023 8:18 AM EDT) Hepatitis C Antibody Nonreactive Nonreactive [facility] Comment:Antibodies to HCV no t detected; does not exclude early acuteHCV infection. Blood Venous blood specimen / Unknown 11/05/2023 8:18 AM EDT 11/05/2023 11:14 AM EDT Scot Mathews MD LAB BLOOD ORDERABLES Final Resul t [facility] [address] [place] [address] [phone] * HIV-1/2 Antigen and Antibodies, Fourth Generation, with Reflexes (11/05/2023 8:18 AM EDT) HIV AB/AG Nonreactive Nonreactive [facility] Comment:HIV-1 p24 Ag and/or HIV-1/HIV-2 Ab not detected.A test result that is nonreactive does not exclude thepossibility of exposure to or infection with HIV-1 and/orHIV-2. Nonreactive results in this assay for individualswith prior exposure to HIV-1 and/or HIV-2 may be due toantigen and antibody levels that are below the limit ofdetection of this assay.The [employer] HIV Ag/Ab Combo assay result andsupplemental assay results should be interpreted inconjunction with the patient's clinical presentation,history and other laboratory results. If the results areinconsistent with clinical evidence, additional testing issuggested to confirm the result. Blood Venous blood specimen / Unknown 11/05/2023 8:18 AM EDT 11/05/2023 11:14 AM EDT us Scot Mathews MD LAB BLOOD ORDERABLES Final Resul t [facility] [address] [place] [phone] [phone] from Last 3 Months or Most Recently Relevant to Health Maintenance Insurance [address] [place] [address] HSN FULL [facility] C[facility] ST[facility] ADULT [address] [place] [address] [address] [place] [address] Care Teams Assistant Front End Manager Relationship Specialty Start Date End Date Name, MD Scot [address] [place] [address] PCP - General Internal Medicine 08/16/22 Alicia Fuentes PharmD [address] [place] [address] Pharmacist Internal Medicine 12/18/22 Alicia Fuentes PharmD [address] [place] [address] Pharmacist Internal Medicine 07/28/24 Mian Gillette Community Relations AdvisorMedical Scientist 12/29/23 [facility] 07/10/24
--- OUTSIDE RECORDS SUMMARY | 2024-09-24 11:52 | XMS_ITS | Encounter Summary ---
Author Organization [employer] Address [address] 7t [place] [address] Care Team Providers Care Superintendent Logging Name Role Phone Name, Scot SEARS Primary Care Provider [phone] Puia, Alicia PharmD Unavailable [phone] Puia, Alicia PharmD Unavailable [phone] Encounter Details Date Type Department Care Team (Latest Contact Info) Description 09/24/2024 Travel Social History Tobacco Use Types Packs/Day [...] Description 10/28/2024 10:00 AM EST Medication Management [facility] [address] [place] [address] Alicia Fuentes PharmD [address] [place] [address] 11/05/2024 11:00 AM EDT Office Visit [facility] [address] [place] [address] Name, MD Scot [address] [place] [address] documented as of this encounter Goals Goal Patient Goal Type Associated Problems Recent Progress Patient-Stated? Author Smoking cessation General No Alicia Fuentes PharmD documented as of this encounter Visit Diagnoses Not on filedocumented in this encounter Additional Health Concerns Assessment Noted Time PHQ-9 Depression Total Score: 15 024 10:43 AM EDT documented as of this encounter Care Teams Superintendent Logging Relationship Specialty Start Date End Date NameScot MD [address] [place] [address] PCP - General Internal Medicine 08/16/22 Alicia Fuentes, PharmD [address] [place] [address]69 Pharmacist Internal Medicine 12/18/22 Alicia Fuentes, Bob [address] [place] [address]93 Pharmacist Internal Medicine 07/28/24 Mian Gillette Account EngineerSourcer 12/29/23 [facility] 07/10/24 documented as of this encounter
--- OUTSIDE RECORDS SUMMARY | 2024-09-24 11:52 | XMS_ITS | Encounter Summary ---
Author Organization [employer] Address [address] 7t [place] [address] Care Team Providers Care Bulker Name Role Phone Name, Scot SEARS Primary Care Provider [phone] Puia, Alicia PharmD Unavailable [phone] Puia, Alicia PharmD Unavailable [phone] Reason for Visit * Reason Onset Date Comments Nurse Triage 08/27/2024 Encounter Details Date Type Department Care Team (Late st Contact Info) Description 08/27/2024 Telephone [facility] [address], [place] [phone] Name, MD Scot [address] [place], [place] [phone] Nurse Triage Social History Tobacco Use Types [...] with others, in a hotel, in a correction, living outside on the street, on a [...] t he electric, gas, oil or water [employer] threatened to shut off services in your [...] encounter Miscellaneous Notes * Telephone Encounter - Erin Almanzar, MARYURI - 08/27/2024 1:15 PM EST Triage call returned with [facility] # [phone] Nikunj. Unable to reach 787 area code. Transferred to [facility] for assistance. Additional clutch inspector [phone] reached patient who reports that he was told by nurses that he has wax in his ears. Patient reports ears are dirty like a snowball of wax inside No FB or objects in ears no pain or injury no discharge. Disposition reviewed and patient in agreement with plan. ASK/Jessica LONG TERM CARE ADMINISTRATOR 09/06/24 1020am.Reviewed with patient home care recommendations and reasons to call back. Pt verbalized understanding and agrees. Multiple (2) protocols were used on this call. Disposition for Call: See in Office or Video Visit within 2 Weeks Protocol Used: Ear - Congestion (Adult) Protocol-Based Disposition: See in Office or Video Visit within 2 Weeks Positive Triage Question: * Ear congestion is a chronic symptom (recurrent or ongoing AND present > 4 weeks) * All higher-acuity triage questions were negative Care Advice Discussed: * Ear Congestion - Causes * Ear Congestion - Treatment Protocol Used: Earwax (Adult) Protocol-Based Disposition: See in Office or Video Visit within 2 Weeks Video visit not offered Positive Triage Question: * Earwax problem and not willing to try Care Advice * All higher-acuity triage questions were negative Care Advice Discussed: * Do Not Use Cotton Swabs (Q-tips) or Other Objects to Remove Wax Deep in Your Ear Canal * Ear Drops to Soften Wax * Reasons To Call Back - Earache occurs - You become worse * Telephone Encounter - Benjamin Diego - 08/27/2024 11:26 AM EST Symptom: Object in Ear Outcome: Schedule an urgent appointment (within 1 hour) or talk to a nurse or provider soon Reason: Caller denied all higher acuity questions The caller accepted this outcome. documented in this encounter Plan of Treatment Upcoming Encounters Date Type Department Care Team (Late st Contact Info) Description 10/28/2024 10:00 AM EST Medication Management [facility] [address] [place] [phone] Alicia Fuentes, PharmD [address] [place] [address] 11/05/2024 11:00 AM EDT Office Visit [facility] [address] [place] [address] Name, MD Scot [address] [place] [address] documented as of this encounter Goals Goal Patient Goal Type Associated Problems Recent Progress Patient-Stated? Author Smoking cessation General No Alicia Fuentes, PharmD documented as of this encounter Visit Diagnoses Not on filedocumented in this encounter Additional Health Concerns Assessment Noted Time PHQ-9 Depression Total Score: 15 024 10:43 AM EDT documented as of this encounter Care Teams Bulker Relationship Specialty Start Date End Date Name, MD Scot [address] [place] [address] PCP - General Internal Medicine 08/16/22 [place] [address] Pharmacist Internal Medicine 12/18/22 Alicia Fuentes PharmD [facility] [place] [address] Pharmacist Internal Medicine 07/28/24 Mian Gillette Cold HeaderMica Machine Operator 12/29/23 [facility] 07/10/24 documented as of this encounter
--- OUTSIDE RECORDS SUMMARY | 2024-09-24 11:52 | XMS_ITS | Encounter Summary ---
Author Organization [employer] Address [address] 7[address] [place] [address] Care Team Providers Care Parcel Post Truck Driver Name Role Phone Name, Scot SEARS Primary Care Provider [phone] Puia, Alicia PharmD Unavailable [phone] Puia, Alicia PharmD Unavailable [phone] Encounter Details Date Type Department Care Team (Latest Contact Info) Description 09/10/2024 Travel Social History Tobacco Use Types Packs/Day [...] 10:00 AM EST Medication Management [facility] [address] [place] [address] Alicia Fuentes PharmD [address] [place] [address] 11/05/2024 11:00 AM EDT Office Visit [facility] [address] [place] [address] Name, MD Scot [address] [place] [address] documented as of this encounter Goals Goal Patient Goal Type Associated Problems Recent Progress Patient-Stated? Author Smoking cessation General No Alicia Fuentes PharmD documented as of this encounter Visit Diagnoses Not on filedocumented in this encounter Additional Health Concerns Assessment Noted Time PHQ-9 Depression Total Score: 15 024 10:43 AM EDT documented as of this encounter Care Teams Parcel Post Truck Driver Relationship Specialty Start Date End Date NameScot MD [address] [place] [phone] PCP - General Internal Medicine 08/16/22 Alicia Fuentes, PharmD [address] [place] [address] Pharmacist Internal Medicine 12/18/22 Alicia Fuentes, Bob [address] [place] [address] Pharmacist Internal Medicine 07/28/24 Mian Gillette Apartment LocatorPhlebotomy Program Coordinator 12/29/23 [facility] 07/10/24 documented as of this encounter
--- OUTSIDE RECORDS SUMMARY | 2024-09-24 11:52 | XMS_ITS | Encounter Summary ---
Author Organization [employer] Address [address] [place] [address] Care Team Providers Care Electrical Wiring Lineman Name Role Phone Name, Scot SEARS Primary Care Provider [phone] Puia, Alicia PharmD Unavailable [phone] Puia, Alicia PharmD Unavailable Reason for Visit * Reason Onset Date Comments Referral 10/09/2022 Encounter Details Date Type Department Care Team ([facility] st Contact Info) Description 10/09/2022 Telephone [facility] [address] [place], [place] [phone] Name, MD Scot [address] [place], [place] [phone] Referral Social History Tobacco Use Types Packs/Day Years [...] suspected to have Coronavirus/COVID-19? No / Unsure 10/01/2022 8:11 AM EST documented as of this encounter Miscellaneous Notes * Telephone Encounter - Ryan Tejada - 10/09/2022 11:56 AM EST Tc from mom requesting a referral to be seen at the [facility] Please contact mom at [phone] documented in this encounter Plan of Treatment Upcoming Encounters Date Type Department Care Team (Late st Contact Info) Description 10/28/2024 10:00 AM EST Medication Management [facility] [address] [place] [address] [place] [address] 11/05/2024 11:00 AM EDT Office Visit [facility] [address] [place], [place] [address]v[place] [address] Name, MD Scot [facility] [place] [address] documented as of this encounter Visit Diagnoses Not on filedocumented in this encounter Additional Health Concerns Assessment Noted Time PHQ-9 Depression Total Score: 0 08/16/20 9:25 AM EST documented as of this encounter Care Teams Electrical Wiring Lineman Relationship Specialty Start Date End Date Name, MD Scot [facility] [place] [address] PCP - General Internal Medicine 08/16/22 Alicia Fuentes PharmD [facility] [place] [address] Pharmacist Internal Medicine 12/18/22 Alicia Fuentes PharmD [facility] [place] [address] Pharmacist Internal Medicine 07/28/24 Mian Gillette Business Development ManagerAssociate Of Science In Nursing 12/29/23 [facility] 07/10/24 documented as of this encounter
--- OUTSIDE RECORDS SUMMARY | 2024-09-24 11:53 | XMS_ITS | Encounter Summary ---
Author Organization [employer] Address [address] 7[address] [place] [address] Care Team Providers Care Invoice Control Clerk Name Role Phone Name, Scot SEARS Primary Care Provider [phone] Puia, Alicia PharmD Unavailable [phone] Puia, Alicia PharmD Unavailable [phone] Reason for Visit * Reason Comments Cerumen Impaction Encounter Details Date Type Department Care Team (Latest Contact Info) Description 09/17/2024 11:00 AM EST Clinical Support [facility] [address] [place] [address] Marilyn Keenan RN Impacted cerumen, unspecified laterality Social History Tobacco Use Types Packs/Day Years [...] your housing situation today? I have gisella jerry 09/10/[address] you li [...] EST Inhaled Oxygen Concentration - - Weight - - Height - - Body Mass Index - - documented in this encounter Progress Notes * Marilyn Keenan RN - 09/17/2024 11:00 AM ESTAssociated Order(s): Ear Cerumen Removal Post-Procedure Diagnose(s): Impacted cerumen, unspecified laterality S: Pt arrived to visit to for cerumen impaction in bilateral. [facility] roll machine operator: Bela Godinez09 used throughout visit to assist with jordanian translation. Pt is able to reply back with short responses inenglish. Pt reports they did not use the drops today but did take it as prescribed. Pt reports theyused the drops 2x daily for five days. O: Pt alert, oriented, primarily jordanian speaking. Bilateral ears shows excessive hair with cerumenimpaction throughout the canal. Pt denies headaches or dizziness when using osteocope to assess theear canal. Discussed risks, benefits and pt verbalized understanding. A: Irrigation performed in bilateral ears with small amount of skin falling into basin. Irrigation performed in bilateral ears multiple times to remove wax and pt denied any headaches or dizziness during attempt. Curette was used when large amounts of wax was at the outer part of the canal to be removed. Bilateral ears are free from cerumen after the procedure. Pt denied any side effects and tolerated procedure well. P: Pt educated to avoid using Q-tips and can restart using drops if they notice their ears are showing cerumen impaction again. Pt advised to f/u with PCP prn and pt verbalized understanding. Patient ID: Cameron Calderon is a 59 y.o. male. Ear Cerumen Removal Date/Time: 09/17/2024 11:16 AM Performed by: Marilyn Keenan RN Authorized by: Scot Mathews MD Consent: Consent obtained: Verbal Consent given by: Patient Risks, benefits, and alternatives were discussed: yes Risks discussed: Incomplete removal and dizziness Procedure details: Location: L ear and R ear Procedure type: irrigation Procedure outcomes: cerumen removed Post-procedure details: Inspection: Ear canal clear and TM intact Hearing quality: Normal Procedure completion: Tolerated documented in this encounter Plan of Treatment Upcoming Encounters Date Type Department Care Team (Late st Contact Info) Description 10/28/2024 10:00 AM EST Medication Management [facility] MED[facility]INE [address] [place] [address] Alicia Fuentes, PharmD [address] [place] [address] 11/05/2024 11:00 AM EDT Office Visit [facility] [address] [place] [address] [phone] Scot Mathews MD [address] [place] [address] documented as of this encounter Goals Goal Patient Goal Type Associated Problems Recent Progress Patient-Stated? Author Smoking cessation General No Alicia Fuentes, PharmD documented as of this encounter Procedures Procedure Name Priority Date/Time Associated Diagnosis Comments LA REMOVAL IMPACTED CERUMEN IRRIGATION/LVG UNILAT Routine 09/17/2024 11:16 AM EST Impacted cerumen, unspecified laterality documented in this encounter Results * LA REMOVAL IMPACTED CERUMEN IRRIGATION/LVG UNILAT (09/17/2024 11:16 AM EST) Marilyn Espino RN - 09/17/2024 11:16 AM EST Marilyn [...] MD IN CLINIC/BEDSIDE ORDERABLES Fin al Result documented in this encounter Visit Diagnoses Diagnosis Impacted cerumen, unspecified laterality documented in this encounter Additional Health Concerns Assessment Noted Time PHQ-9 Depression Total Score: 15 04/30/ 024 10:43 AM EDT documented as of this encounter Care Teams Invoice Control Clerk Relationship Specialty Start Date End Date Scot Mathews MD [address] [place] [address] PCP - General Internal Medicine 08/16/22 Alicia Fuentes PharmD [address] [place] [address] Pharmacist Internal Medicine 12/18/22 Alicia Fuentes PharmD [address] [place] [address] Pharmacist Internal Medicine 07/28/24 Mian Gillette FounderConduit Reamer Operator 12/29/23 [facility] 07/10/24 documented as of this encounter
--- OUTSIDE RECORDS SUMMARY | 2024-09-24 11:53 | XMS_ITS | Encounter Summary ---
Author Organization [employer] Address [address] 7t [place] [address] Care Team Providers Care Medicare Specialist Name Role Phone Name, Scot SEARS Primary Care Provider [phone] Puia, Alicia PharmD Unavailable [phone] Puia, Alicia PharmD Unavailable [phone] Encounter Details Date Type Department Care Team ([facility] Contact Info) Description 08/12/2024 Orders Only [facility] External Provider, [facility] Social History Tobacco Use Types Packs/Day Years [...] 10/28/2024 10:00 AM EST Medication Management [facility] MEDICINE [address] [place] [address] Alicia Fuentes, PharmD [address] [place] [address] 11/05/2024 11:00 AM EDT Office Visit [facility] [address] [place] [address] Name, MD Scot [address] [place] [address] documented as of this encounter Goals Goal Patient Goal Type Associated Problems Recent Progress Patient-Stated? Author Smoking cessation General No Alicia Fuentes, PharmD documented as of this encounter Procedures Procedure Name Priority Date/Time Associated Diagnosis Comments CT CHEST WO CONTRAST Routine 08/12/2024 2:07 PM EST documented in this encounter Results * CT Chest w/o Contrast (08/12/2024 2:07 PM EST) Anatomical Region Laterality Modality Body, Chest Computed Tomogra phy 08/12/2024 2:07 PM EST Narrative 09/22/2024 11:09 AM EST ? [facility] ?[address] ?[place] [address] ? CT Scan Report ? Signed ? Patient: Calderon,Rasta ?MR#: [id number] ?? 14 ? : 1965 ?Acct:[id number] ? Age/Sex: 59 / M ?ADM Date: 08/12/24 ? Loc: HO.CT ? Attending Dr: Russ Quiñonez MD ? Ordering Physician: Russ Quiñonez MD ?? Date of Service: 08/12/24 ?? Procedure(s): CT chest wo IV con ?? Accession Number(s): [id number] ? cc: Reid,Scot SEARS; Russ Quiñonez MD ? Report Number: ?? [id number]: Total DLP = ??202.00 mGy-cm ?? EXAMINATION: [...] DD/ 1407 ? TD/TT: 08/12/24 1415 ? Lunchroom Worker: ? Procedure Note Donotabhilashinterpreter, Image - 09/22/[address] [place] [address] [address] Scan Report Signed Patient: Cameron Calderon MMR#: [id number] 14 : 1965Acct:[id number] Age/Sex: 59 / MADM Date: 08/12/24 Loc: HO.CT Attending Dr: Russ Quiñonez MD Ordering Physician: Russ Quiñonze MD Date of Service: 08/12/24 Procedure(s): CT chest wo IV con Accession Number(s): [id number] cc: Scot Mathews MD; Russ Quiñonez MD Report Number: [id number]: Total DLP = 202.00 mGy-cm EXAMINATION: CT [...] by: Shane Weiner MD 09/22/2024 11:06 AM [facility] Dictated By: Shane Lopez MD Signed By: <Electronically signed by Shane Callahan MDin OV> 09/22/24 1106 DD/ 1407 TD/TT: 08/12/24 1415 Lunchroom Worker: [facility] External Provider IMG CT PROCEDURES Edited Result - Final documented in this encounter Visit Diagnoses Not on filedocumented in this encounter Additional Health Concerns Assessment Noted Time PHQ-9 Depression Total Score: 15 024 10:43 AM EDT documented as of this encounter Care Teams Medicare Specialist Relationship Specialty Start Date End Date Name, MD Scot [address] [place] [address] PCP - General Internal Medicine 08/16/22 Alicia Fuentes PharmD [address] [place] [address] Pharmacist Internal Medicine 12/18/22 Alicia Fuentes PharmD [address] [place] [address] Pharmacist Internal Medicine 07/28/24 Mian Gillette Float TenderRubber Goods Tester 12/29/23 [facility] 07/10/24 documented as of this encounter
--- OUTSIDE RECORDS SUMMARY | 2024-09-24 11:53 | XMS_ITS | Encounter Summary ---
Author Organization [employer] Address [address] [place] [address] Care Team Providers Care Primary Health Organisation Manager Name Role Phone Name, Scot SEARS Primary Care Provider [phone] Puia, Alicia PharmD Unavailable [phone] Puia, Alicia PharmD Unavailable [phone] Encounter Details Date Type Department Care Team (Latest Contact Info) Description 09/17/2024 Travel Social History Tobacco Use Types Packs/Day [...] 10:00 AM EST Medication Management [facility] MEDICINE [address] [place] [address] Alicia Fuentes PharmD [address] [place] [address] 11/05/2024 11:00 AM EDT Office Visit [facility] [address] [place] [address] Name, MD Scot [address] [place] [address] documented as of this encounter Goals Goal Patient Goal Type Associated Problems Recent Progress Patient-Stated? Author Smoking cessation General No Alicia Fuentes PharmD documented as of this encounter Visit Diagnoses Not on filedocumented in this encounter Additional Health Concerns Assessment Noted Time PHQ-9 Depression Total Score: 15 024 10:43 AM EDT documented as of this encounter Care Teams Primary Health Organisation Manager Relationship Specialty Start Date End Date NameScot MD [address] [place] [address] PCP - General Internal Medicine 08/16/22 Alicia Fuentes, PharmD [address] [place] [address] Pharmacist Internal Medicine 12/18/22 Alicia Fuentes, Bob [address] [place] [address] Pharmacist Internal Medicine 07/28/24 Mian Gillette Geotechnical Laboratory TechnicianElectric Motor Repair Supervisor 12/29/23 [facility] 07/10/24 documented as of this encounter
[2024-09-24 14:14] LABS: Anion Gap 15 (12-20); Blood Urea Nitrogen 17 mg/dL (9-16); Carbon Dioxide 26 mmol/L (22-29); Chloride 105 mmol/L (96-108); Estimated Glomerular Filt Rate > 60; Glucose Random 93 mg/dL (60-115); Potassium 4.5 mmol/L (3.3-5.1); Sodium 141 mmol/L (135-145)
== END 2024-09-24 11:02 | disposition home or self-care (01) ==
LOC: HO.HHCL 11:01
PROVIDERS: Visit Provider Internal Medicine Geriatric Medicine
DX: R03.1 Nonspecific low blood-pressure reading (principal); D17.9 Benign lipomatous neoplasm, unspecified; E11.9 Type 2 diabetes mellitus without complications
CPT/HCPCS: 36415; 80048

== ENCOUNTER 2024-09-27 11:00 | Outpatient (AMB) | payer MEDICAID, SELFPAY ==
--- NOTE | 2024-09-27 11:09 | MHC.OFFVIS ---
Intake Visit Reasons: suture removal, excision lipoma RT shoulder Intake Note: This patient presents for suture removal status post excision lipoma right shoulder. Pt c/o; no concerns. Cold Molding Press Operator Required: Yes Allergies No Known Allergies Allergy (Verified 09/27/24 11:18) HPI HPI suture removal, excision lipoma RT shoulder: Details: He underwent excision of a lipoma from the right shoulder under local anesthesia last 09/02/2024. He tolerated the procedure well and currently denies complaints. [facility] Medical History Lipoma of right shoulder Asthma-COPD overlap syndrome DKA (diabetic ketoacidosis) Acute kidney injury DJD (degenerative joint disease) Back pain Morbid obesity Umbilical hernia, incarcerated Atypical chest pain COPD (chronic obstructive pulmonary disease) Tobacco abuse disorder Hyperlipidemia HTN (hypertension) Osteoarthritis of right hip Surgical History Status post excision of lipoma (~09/02/24) History of umbilical hernia repair (~06/18/24) Status post total hip replacement, right Family History Mother Diabetes Hypertension Heart attack Father Hypertension Heart attack Social History Household Members: None Household Members Other:: rents a room in a house Housing: Apartment Housing Other:: Rents a room Are you a primary small animal caretaker to a significant other at home: No Do you presently have visiting nurse or other home services: No Alcohol intake: never Patient Tobacco Use Status: Current everyday Tobacco user Tobacco use type: Cigarette Cigarettes Per Day: 5 Years Smoked: 25 e-Cigarette/Vaping Use: Never Used Second Hand Smoke Exposure: No service: No Review of Systems Const Denies chills and Denies fever(s) Physical Exam Const General: comfortable and no acute distress Resp Effort & Inspection: normal respiratory effort Extrem Other: Excision site in the right shoulder is well healed, not infected, sutures intact Assessment & Plan Assessment & Plan (1) Lipoma of right shoulder: Code(s): D17.21 - Benign lipomatous neoplasm of skin and subcutaneous tissue of right arm Category: Medical Plan: Status post excision. His incision is well healed. I removed his sutures. The wound edges remained well apposed. His path report shows a lipoma. He can follow up on a p.r.n. basis. Coding Level of Care Code Global (19418) Diagnoses Lipoma of right shoulder D17.21
--- OUTSIDE RECORDS SUMMARY | 2024-09-27 12:08 | XMS_ITS | Encounter Summary ---
Author Organization [employer] Address [address] [facility] [address] 7t [place] [address] Care Team Providers Care Tank Setter Name Role Phone Name, Scot SEARS Primary Care Provider [phone] Puia, Alicia PharmD Unavailable [phone] Puia, Alicia PharmD Unavailable [phone] Encounter Details Date Type Department Care [...] Description 10/28/2024 10:00 AM EST Medication Management [facility] [address] [place] [address] Alicia Fuentes PharmD [address] [place] [address] 11/05/2024 11:00 AM EDT Office Visit [facility] [address] [place] [address] 227[address] Name, MD Scot [address] [place] [address] documented as of this encounter Goals Goal Patient Goal Type Associated Problems Recent Progress Patient-Stated? Author Smoking cessation General No Alicia Fuentes PharmD documented as of this encounter Visit Diagnoses Not on filedocumented in this encounter Additional Health Concerns Assessment Noted Time PHQ-9 Depression Total Score: 15 024 10:43 AM EDT documented as of this encounter Care Teams Tank Setter Relationship Specialty Start Date End Date NameScot MD [address] [place] [address] PCP - General Internal Medicine 08/16/22 Alicia Fuentes, PharmD [address] [place] [address] 78033 Pharmacist Internal Medicine 12/18/22 Alicia Fuentes, Bob [address] [place] [address] 30021 Pharmacist Internal Medicine 07/28/24 Mian Gillette Coil Connector RepairerCentral Office Trouble Shooter 12/29/23 [facility] 07/10/24 documented as of this encounter
--- OUTSIDE RECORDS SUMMARY | 2024-09-27 12:08 | XMS_ITS | Encounter Summary ---
Author Organization [employer] Address [address] [facility] 7t [place] [address] Care Team Providers Care Human Resources Supervisor Name Role Phone Name, Scot SEARS Primary Care Provider [phone] Puia, Alicia PharmD Unavailable [phone] Puia, Alicia PharmD Unavailable Reason for Visit * Reason Onset Date Comments Orders Request 12/12/2023 Encounter Details Date Type Department Care Team ([facility] st Contact Info) Description 12/12/[address] [facility] MEDICINE [address] [place] [address] Name, MD Scot 230 [place], [place] [phone] Orders Request Social History Tobacco Use Types [...] with others, in a hotel, in a custodial, living outside on the street, on a [...] AM EST Medication Management [facility] MEDICINE [address] [place] [address] Alicia Fuentes, PharmD 230 [place], [place] [phone] 11/05/2024 11:00 AM EDT Office Visit [facility] MEDICINE Mely [facility] [place] [address] Name, MD Scot Mely [facility] [place] [address] documented as of this encounter Goals Goal Patient Goal Type Associated Problems Recent Progress Patient-Stated? Author Smoking cessation General No Alicia Fuentes, AnkushD documented as of this encounter Visit Diagnoses Not on filedocumented in this encounter Additional Health Concerns Assessment Noted Time PHQ-9 Depression Total Score: 9 10/24/19 24 10:30 AM EST documented as of this encounter Care Teams Human Resources Supervisor Relationship Specialty Start Date End Date Name, MD Scot Mely [facility] [place] [address] PCP - General Internal Medicine 08/16/22 Alicia Fuentes, AnkushD Mely [facility] [place] [address] Pharmacist Internal Medicine 12/18/22 Alicia Fuentes, Bob Mely [facility] [place] [address] Pharmacist Internal Medicine 07/28/24 Mian Gillette Representative Personal ServiceIce Cutter 12/29/23 [facility] 07/10/24 documented as of this encounter
--- OUTSIDE RECORDS SUMMARY | 2024-09-27 12:08 | XMS_ITS | Encounter Summary ---
Author Organization [employer] Address [address] [facility] [address] 7t [place] [address] Care Team Providers Care Wellness Program Coordinator Name Role Phone Name, Scot SEARS Primary Care Provider [phone] Puia, Alicia PharmD Unavailable [phone] Puia, Alicia PharmD Unavailable [phone] Reason for Visit * Reason Onset Date Comments Medication Question 11/21/2022 Encounter Details Date Type Department Care Team ([facility] st Contact Info) Description 11/21/2022 Telephone [facility] MEDICINE 230 [place], [place] [phone] Name, MD Scot 230 [place], [place] [phone] Medication Question Social History Tobacco Use Types [...] on last visit Please contact pt at [phone] documented in this encounter Plan of Treatment Upcoming Encounters Date Type Department Care Team (Late st Contact Info) Description 10/28/2024 10:00 AM EST Medication Management [facility] MED[facility]INE [address] [place] [address] Alicia Fuentes PharmD [address] [place] [address] 11/05/2024 11:00 AM EDT Office Visit [facility] [address] [place] [address] 137[address] Name, MD Scot [address] [place] [address] documented as of this encounter Visit Diagnoses Not on filedocumented in this encounter Additional Health Concerns Assessment Noted Time PHQ-9 Depression Total Score: 0 08/16/20 22 9:25 AM EST documented as of this encounter Care Teams Wellness Program Coordinator Relationship Specialty Start Date End Date Name, MD Scot [address] [place] [address] PCP - General Internal Medicine 08/16/22 Alicia Fuentes PharmD [address] [place] [address] 50583 Pharmacist Internal Medicine 12/18/22 Alicia Fuentes PharmD [address] [place] [address] Pharmacist Internal Medicine 07/28/24 Mian Gillette Supervisor Coal HandlingShroud Line Tier 12/29/23 [facility] 07/10/24 documented as of this encounter
--- OUTSIDE RECORDS SUMMARY | 2024-09-27 12:08 | XMS_ITS | Encounter Summary ---
Author Organization [employer] Address [address] [facility] 7t [place] [address] Care Team Providers Care Band Saw Filer Name Role Phone Name, Scot SEARS Primary Care Provider [phone] Puia, Alicia PharmD Unavailable Puia, Alicia PharmD Unavailable Reason for Visit * Reason Comments Med Refill Encounter Details Date Type Department Care Team (Late st Contact Info) Description 12/12/2023 Refill [facility] [address] [place], [place] [phone] Name, MD Scot 230 [place] [address] Tobacco use Social History Tobacco Use Types [...] others, in a hotel, in a senior living, living outside on the street, on a [...] Description 10/28/2024 10:00 AM EST Medication Management [facility] MED[facility]INE [address] [place] [address] Alicia Fuentes PharmD [address] [place] [address] 11/05/2024 11:00 AM EDT Office Visit [facility] [address] [place] [address] Scot Mathews MD [address] [place] [address] documented as of this encounter Goals Goal Patient Goal Type Associated Problems Recent Progress Patient-Stated? Author Smoking cessation General No Alicia Fuentes, PharmD documented as of this encounter Visit Diagnoses Diagnosis Tobacco use documented in this encounter Additional Health Concerns Assessment Noted Time PHQ-9 Depression Total Score: 9 10/24/19 24 10:30 AM EST documented as of this encounter Care Teams Band Saw Filer Relationship Specialty Start Date End Date Scot Mathews MD 230 [place] [address] PCP - General Internal Medicine 08/16/22 [place] [address] Pharmacist Internal Medicine 12/18/22 [place] [address] Pharmacist Internal Medicine 07/28/24 Mian Gillette Payloader OperatorLaw Reporter 12/29/23 [facility] 07/10/24 documented as of this encounter
--- OUTSIDE RECORDS SUMMARY | 2024-09-27 12:08 | XMS_ITS | Encounter Summary ---
Author Organization [employer] Address [address] [facility] 7t [place] [address] Care Team Providers Care Food Photographer Name Role Phone Name, Scot SEARS Primary Care Provider [phone] Puia, Alicia PharmD Unavailable Puia, Alicia PharmD Unavailable Reason for Visit * Reason Comments Med Refill Encounter Details Date Type Department Care Team (Late st Contact Info) Description 12/12/2023 Refill [facility] 230 [place], [place] [phone] Radha Foster DO 230 [place], [place] [phone] Social History Tobacco Use Types Packs/Day Years [...] with others, in a hotel, in a prison, living outside on the street, on a [...] Description 10/28/2024 10:00 AM EST Medication Management [address] [address] Alicia Fuentes PharmD [address] [place] [address] 11/05/2024 11:00 AM EDT Office Visit [facility] MED[facility]INE [address] [place] [address] Scot Mathews MD [address] [place] [address] documented as of this encounter Goals Goal Patient Goal Type Associated Problems Recent Progress Patient-Stated? Author Smoking cessation General No Alicia Fuentes PharmD documented as of this encounter Visit Diagnoses Not on filedocumented in this encounter Additional Health Concerns Assessment Noted Time PHQ-9 Depression Total Score: 9 10/24/19 24 10:30 AM EST documented as of this encounter Care Teams Food Photographer Relationship Specialty Start Date End Date Scot Mathews MD 230 [place] [address] PCP - General Internal Medicine 08/16/22 [place] [address] Pharmacist Internal Medicine 12/18/22 [place] [address] Pharmacist Internal Medicine 07/28/24 Mian Gillette Keno ManagerInsole Presser 12/29/23 [facility] 07/10/24 documented as of this encounter
--- OUTSIDE RECORDS SUMMARY | 2024-09-27 12:09 | XMS_ITS | Encounter Summary ---
Author Organization [employer] Address [address] [facility] [address] 7t [place] [address] Care Team Providers Care Proof Inspector Name Role Phone Name, Scot SEARS Primary Care Provider [phone] Puia, Alicia PharmD Unavailable [phone] Puia, Alicia PharmD Unavailable Encounter Details Date Type Department Care Team (Late st Contact Info) Description 09/10/2024 11:15 AM EST Office Visit [facility] 230 [place], [place] [phone] Lexi North NP 230 [place], [place] [phone] Impacted cerumen, unspecified laterality (Primary Dx); New [...] pulmonary disease (COPD) suggested by initial evaluation ([facility]) Dental caries Dental abscess Edentulous maxilla Partially edentulous mandible Status post right hip replacement Moderate persistent asthma with acute exacerbation Mild depression Severe anxiety Cough in adult New onset type 2 diabetes mellitus ([facility]) Congestion of respiratory tract Phlegm in throat Lipoma Acute hyperglycemia Acute kidney injury ([facility]) Atypical chest pain Chronic back pain greater than 3 months duration Chronic pain syndrome Asthma-COPD overlap syndrome ([facility]) COPD (chronic obstructive pulmonary disease) ([facility]) DKA (diabetic ketoacidosis) ([facility]) Encounter for preoperative pulmonary examination Environmental allergies GERD (gastroesophageal reflux disease) Hyperlipidemia Impingement syndrome, shoulder, left Intractable low back pain Lower extremity edema Morbid obesity ([facility]) Obesity Dyspnea on exertion Orthopnea Pulmonary nodules Spinal stenosis at L4-L5 level Spondylosis, lumbar, with myelopathy Spondylolisthesis, lumbar region Umbilical hernia, incarcerated Neurogenic claudication due to lumbar spinal stenosis Diabetes ([facility]) HTN (hypertension) Status post total hip replacement, [...] Visit New onset type 2 diabetes mellitus ([facility]) Relevant Orders POCT Glucose (Completed) POCT HGB [...] > 170/100 1 each 0 Continuous Glucose Keyboard Action Assembler (FreeStyle Neel 2 Kelly) device Use to scan sensor at least every 8 hours, as directed, for CGM 1 each 0 Continuous Glucose Sensor (FreeStyle Neel 2 Sensor) [facility] Apply 1 sensor, as directed, every 14 [...] 2 insulin pen needle (Easy Touch Pen [place]) 32G x 4 mm misc Inject 1 [...] 2 time(s) daily 100 each 11 Umeclidinium [place] (Incruse Ellipta) 62.5 MCG/ACT aerosol powder Inhale 1 each in the morning. 1 each 11 No current facility-administered medications for this visit. Visit Conducted in: Vietnamese Translation by: Provided by [facility] staff member Angie FARNSWORTH , documented in [...] - 09/19/2024 1:18 PM ESTAssociated Problem(s): Diabetes ([facility]) Due to increased weight and blood sugar despite compliance with nutrition and medications, will increased glp-1 and encouraged lifestyle changes including increased activity as tolerated Smoking cessation encouraged documented in this encounter Plan of Treatment Upcoming Encounters Date Type Department Care Team (Late st Contact Info) Description 10/28/2024 10:00 AM EST Medication Management [facility] [address] [place] [address] Alicia Fuentes PharmD [address] [place] [address] [phone] 11/05/2024 11:00 AM EDT Office Visit [facility] [address] [place] [address] Name, MD Scot [address] [place] [address] [phone] documented as of this encounter Goals Goal Patient Goal Type Associated Problems Recent Progress Patient-Stated? Author Smoking cessation General No Alicia Fuentes PharmD documented as of this encounter Procedures Procedure Name Priority Date/Time Associated Diagnosis Comments POCT GLYCATED HEMOGLOBIN, TOTAL Routine 09/10/2024 11:36 AM EST New onset type 2 diabetes mellitus ([facility]) POCT GLUCOSE Routine 09/10/2024 11:36 AM EST New onset type 2 diabetes mellitus ([facility]) documented in this encounter Results * (ABNORMAL) POCT HGB A1C (09/10/2024 11:36 AM EST) Hemoglobin A1C 7.8(A) 4.0 - 6.0 % QC Media Lot # [id number] Lot# Expiration Date 110,626 Blood 09/10/2024 11:3 6 AM EST [facility] [employer] POINT OF CARE TEST ENTER/EDIT OR DERABLES Final Result * POCT Glucose (09/10/2024 11:36 AM EST) Glucose Blood, POC 91 60 - 200 mg/dL QC Media Lot # [id number] Lot# Expiration Date 110,626 Blood Capillary blood specimen / Unknown 09/10/2024 11:36 AM EST [facility]ORAT[facility] [employer]OWER POINT OF CARE TEST ENTER/EDIT OR DERABLES Final Result documented in this encounter Visit Diagnoses Diagnosis Impacted cerumen, unspecified laterality- Primary New onset type 2 diabetes mellitus (CMS/HCC) documented in this encounter Additional Health Concerns Assessment Noted Time PHQ-9 Depression Total Score: 15 024 10:43 AM EDT documented as of this encounter Care Teams Proof Inspector Relationship Specialty Start Date End Date Name, MD Scot [address] [place] [address] PCP - General Internal Medicine 08/16/22 Alicia Fuentes PharmD [address] [place] [address] Pharmacist Internal Medicine 12/18/22 Alicia Fuentes PharmD [address] [place] [address] Pharmacist Internal Medicine 07/28/24 Mian Gillette Coater HelperAuto Vinyl Top Installer 12/29/23 [facility] 07/10/24 documented as of this encounter
--- OUTSIDE RECORDS SUMMARY | 2024-09-27 12:09 | XMS_ITS | Encounter Summary ---
Author Organization [employer] Address [address] [facility] [address] 7t [place] [address] Care Team Providers Care Heel Sprayer Name Role Phone Name, Scot SEARS Primary Care Provider [phone] Puia, Alicia PharmD Unavailable [phone] Puia, Alicia PharmD Unavailable [phone] Reason for Visit * Reason Comments Cerumen Impaction Encounter Details Date Type Department Care Team (Latest Contact Info) Description 09/17/2024 11:00 AM EST Clinical Support [facility] MEDICINE 230 [place] [address] Marilyn Keenan RN Impacted cerumen, unspecified laterality [...] visit to for cerumen impaction in bilateral. [facility] boiler plant operator: Bela Godinez09 used throughout visit to assist with bhutanese translation. Pt is able to reply back with short responses inenglish. Pt reports they did not use the drops today but did take it as prescribed. Pt reports theyused the drops 2x daily for five days. O: Pt alert, oriented, primarily bhutanese speaking. Bilateral ears shows excessive hair with [...] Description 10/28/2024 10:00 AM EST Medication Management [facility] MEDICINE [address] [place] [address] Alicia Fuentes, PharmD [address] [place] [address] 11/05/2024 11:00 AM EDT Office Visit [facility] [address] [place] [address] [phone] Scot Mathews MD [address] [place] [address] documented as of this encounter Goals Goal Patient Goal Type Associated Problems Recent Progress Patient-Stated? Author Smoking cessation General No Alicia Fuentes, PharmD documented as of this encounter Procedures Procedure Name Priority Date/Time Associated Diagnosis Comments DC REMOVAL IMPACTED CERUMEN IRRIGATION/LVG UNILAT Routine 09/17/2024 11:16 AM EST Impacted cerumen, unspecified laterality documented in this encounter Results * DC REMOVAL IMPACTED CERUMEN IRRIGATION/LVG UNILAT (09/17/2024 11:16 [...] documented as of this encounter Care Teams Heel Sprayer Relationship Specialty Start Date End Date Scot Mathews MD 230 [place] [address] PCP - General Internal Medicine 08/16/22 Alicia Fuentes PharmD [address] [place] [address] Pharmacist Internal Medicine 12/18/22 Alicia Fuentes PharmD [address] [place] [address] Pharmacist Internal Medicine 07/28/24 Mian Gillette Used Car Lot AttendantDespatching And Receiving Clerk 12/29/23 [facility] 07/10/24 documented as of this encounter
--- OUTSIDE RECORDS SUMMARY | 2024-09-27 12:09 | XMS_ITS | Encounter Summary ---
Author Organization [employer] Address 75 [facility] 7t [place] [address] Care Team Providers Care Machine Repairer Maintenance Name Role Phone Name, Scot SEARS Primary Care Provider [phone] Puia, Alicia PharmD Unavailable [phone] Puia, Alicia PharmD Unavailable Reason for Visit * Reason Comments Med Refill Encounter Details Date Type Department Care Team (Late st Contact Info) Description 09/16/2024 Refill [facility] MEDICINE 230 [place], [place] [phone] Name, MD Scot 230 [place], [place] [phone] New onset type 2 diabetes mellitus (CMS/HCC) [...] Description 10/28/2024 10:00 AM EST Medication Management [facility] [address] [place] [address] Alicia Fuentes PharmD [address] [place] [address] 11/05/2024 11:00 AM EDT Office Visit [facility] MED[facility] [address] [place] [phone] Name, MD Scot [address] [place] [address] documented as of this encounter Goals Goal [...] documented as of this encounter Care Teams Machine Repairer Maintenance Relationship Specialty Start Date End Date Name, MD Scot 230 [facility] [place] [address] PCP - General Internal Medicine 08/16/22 Alicia Fuentes PharmD [facility] [place] [address] Pharmacist Internal Medicine 12/18/22 Alicia Fuentes PharmD [facility] [place] [address] Pharmacist Internal Medicine 07/28/24 Mian Gillette Personal Lines AdvisorStaff Mine Warfare Officer 12/29/23 [facility] 07/10/24 documented as of this encounter
--- OUTSIDE RECORDS SUMMARY | 2024-09-27 12:09 | XMS_ITS | Clinical Summary ---
Author Organization [employer] Address [address] [facility] [address] [place] [address] Care Team Providers Care Truck Mechanic Apprentice Name Role Phone Name, Scot SEARS Primary Care Provider [phone] Puia, Alicia PharmD Unavailable Puia, Alicia [...] > 170/100 1 each 024 Active Umeclidinium [place] (Incruse Ellipta) 62.5 MCG/ACT aerosol powder Inhale [...] 20 PER DAY 144 lozenge 5 Active methocarbamol (Robaxin) 750 MG tablet Take 1 tablet by mouth if needed in the morning, at noon, and at bedtime (pain). Active aspirin 81 MG chewable tabletIndicatio ns:New onset type 2 diabetes mellitus (CMS/HCC) Chew 1 tablet (81 mg) Once per day. 30 tablet 11 2024 Active albuterol (Ventolin HFA) 108 (90 Base) MCG/ACT inhalerIndicati ons:Suspected chronic obstructive pulmonary disease based on initial evaluation ([facility]) INHALE 1 TO 2 PUFFS FOUR TIMES DAILY NEEDED FOR WHEEZING OR SHORTNESS OF BREATH 18 g 2 Active Advair Diskus 500-50 MCG/ACT aerosol powder INHALE 1 PUFF TWICE DAILY. RINSE MOUTH AFTER USING. Active insulin pen needle (Easy Touch Pen [place]) 32G x 4 mm misc Inject 1 each under the skin Once per day. Use 1 daily as directed for insulin administration Active Continuous Glucose [employer] Senior Specialist (FreeStyle Neel 2 [place]) deviceIndicatio ns:New onset type 2 diabetes mellitus [...] sugar 2 time(s) daily 100 each 11 Active empagliflozin (Jardiance) 10 MGIndications:N ew onset [...] per week. 2 mL 025 2024 Active atorvastatin (Lipitor) 80 MG tablet Take 1 tablet (80 mg) by mouth Once per day. 90 tablet 1 Active atorvastatin (Lipitor) 20 MG tabletIndicatio ns:On statin therapy TAKE 1 TABLET BY MOUTH EVERY MORNING 90 tablet 024 2024 Discontinued(D ose adjustment) Trulicity 0.75 MG/0.5ML solution auto-injectorIn dications:New onset [...] and consideration for hypoglycemia risk. Referred to [facility] program, spoke with [facility] pharmacist who plans to f/u with patient [...] intervention , [facility], and Patient to reach out to [facility] as needed Severe anxiety 10/24/2023 Moderate persistent [...] Travel 09/17/2024 11:00 AM EST Clinical Support [address] [address] Marilyn Keenan RN Impacted cerumen, unspecified laterality 09/17/2024 Travel 09/16/[address] [address] Scot Mathews MD New onset type 2 diabetes mellitus (CMS/HCC) 09/10/2024 11:15 AM EST Office Visit [address] [address] Lexi North NP Impacted cerumen, unspecified laterality (Primary Dx); New onset type 2 diabetes mellitus (CMS/HCC) 09/10/2024 Travel 09/06/[address] [address] Brittany Mcclure MA Chart Prep 09/06/2024 Travel 09/02/2024 Orders Only GENERIC EXTERNAL DATA DEPARTMENT Provider, Generic External Data 09/01/2024 Telephone [place] [address] Brittany Mcclure MA Chart Prep 09/01/[address] [address] Scot Mathews MD Appointment Request 08/27/[address] [address] Scot Mathews MD Nurse Triage 08/26/2024 Telephone [facility] [place] [address] Scot Mathews MD Med Refill 08/13/2024 Telephone [facility] [place] [address] Scot Mathews MD Nurse Triage 08/12/2024 Orders Only [facility] External Provider, [facility] 08/12/2024 Telephone [facility] [place] [address] Marilyn Keenan, KENNEDY 08/11/2024 10:00 AM EST Clinical Support [facility] [place] [address] Sabina Laguna, KENNEDY Primary hypertension 08/11/2024 Travel 08/11/2024 Refill [place] [address] Clarissa Valentine ANP New onset type 2 diabetes mellitus (CMS/HCC) 08/04/2024 10:30 AM EST Clinical Support [facility] [place] [address] Marilyn Keenan, KENNEDY 08/04/2024 9:45 AM EST Office Visit [facility] [place] [address] Scot Mathews MD New onset type 2 diabetes mellitus (CMS/HCC) (Primary Dx); Low blood pressure reading; Lipoma, unspecified site 08/04/2024 Telephone [facility] [place] [address] Marilyn Keenan, KENNEDY 08/02/2024 Telephone [place] [address] Brittany Mcclure MA Chart Prep 08/01/2024 Refill [facility] [place] [place] [address] Scot Mathews MD 07/30/2024 2:45 PM EST Office Visit [address] [place] [address] Rianna Degroot NP Soft tissue mass (Primary Dx); Tobacco dependence 07/28/2024 9:30 AM EST Telemedicine [address] [address] Alicia Fuentes PharmD New onset type 2 diabetes mellitus (CMS/HCC) (Primary Dx) 07/28/[address] [address] Alicia Fuentes PharmD Prior Authorization (Freestyle Neel 2 reader, sensor, Luis Alberto test strips ) 07/26/[address] [address] Scot Mathews MD Nurse Triage 07/21/2024 2:45 PM EST Office Visit [address] [address] Maria Isabel Reed MD On statin therapy (Primary Dx); New onset type 2 diabetes mellitus (CMS/HCC); Dietary counseling; Exercise counseling; Suspected chronic obstructive pulmonary disease based on initial evaluation (CMS/HCC); Phlegm in throat 07/21/[address] [address] Scot Mathews MD 07/12/[address] [address] Scot Mathews MD FY 07/09/2024 Patient Outreach [facility] [address] [place], [place] [phone] Scot Mathews MD Transition Of Care (Tcm) (HDF scheduled. SDOH was completed on 08/29/2023) 07/09/[address] [address] Scot Mathews MD Hospital Follow-up 07/06/2024 Refill [facility] [address] [place], [place] [phone] Scot Mathews MD On statin therapy 07/06/2024 Orders Only GENERIC EXTERNAL DATA DEPARTMENT Provider, Generic External Data 07/05/2024 5:20 PM EST Office Visit [facility] [address] [place] [address] Rianna Degroot NP Dizziness (Primary Dx); Elevated glucose level 07/05/2024 Orders Only GENERIC EXTERNAL DATA DEPARTMENT Provider, Generic External Data 06/30/2024 Telephone [facility] MEDICINE [address] [place], [place] [phone] Name, MD Scot Nurse Triage from Last 3 Months Immunizations [...] the past 12 months, has t he meebee, [employer], oil or water [employer] threatened to shut off services in your [...] Description 10/28/2024 10:00 AM EST Medication Management [facility] MEDICINE [address] [place] [phone] Alicia Fuentes, PharmD [address] [place] [address] 11/05/2024 11:00 AM EDT Office Visit [facility] [address] [place] [address] Name, MD Scot [address] [place] [address] Health Maintenance Due Date Last Done Comments [...] Procedure Name Priority Date/Time Associated Diagnosis Comments BASIC METABOLIC PANEL Routine 09/24/2024 11:03 AM EST New onset type 2 diabetes mellitus (CMS/HCC) Low blood pressure reading Lipoma, unspecified site MI REMOVAL IMPACTED CERUMEN IRRIGATION/LVG UNILAT Routine 09/17/2024 [...] Recently Relevant to Health Maintenance Results * (ABNORMAL) Basic Metabolic Panel (09/24/2024 11:03 AM EST) Only the most recent of3 resultswithin the time period is included. Sodium 141 135 - 145 mmol/L [facility] Potassium 4.5 3.3 - 5.1 mmol/L [facility] Chloride 105 96 - 108 mmol/L [facility] Carbon Dioxide 26 22 - 29 mmol/L [facility] Anion Gap 15 12 - 20 [facility] Urea Nitrogen (BUN) 17(H) 9 - 16 mg/dL [facility] Creatinine, Serum 0.93 0.5 - 1.4 mg/dL [facility] Estimated Glomerular Filt Rate >60 [facility] Comment:Chronic Kidney Disea se: Estimated GFR < 60 mL/min/1.45i2Almzmk Kidney Disease: Estimated GFR < 15 mL/min/1.73m2 Glucose 93 60 - 115 mg/dL [facility] Calcium 10.0 8.4 - 10.2 mg/dL [facility] Blood Venous blood specimen / Unknown 09/24/2024 11:03 AM EST 09/24/2024 1:29 PM EST us Scot Name MD LAB BLOOD ORDERABLES Final Resul t [facility] [address] [place] [address] [phone] * MI REMOVAL IMPACTED CERUMEN IRRIGATION/LVG UNILAT (09/17/2024 11:16 [...] intact ??Hearing quality: ??Normal ??Procedure completion: ??Tolerated Result [facility] Scot Mathews MD IN CLINIC/BEDSIDE ORDERABLES Fin al Result * (ABNORMAL) POCT HGB A1C (09/10/2024 11:36 AM EST) Only the most recent of2 resultswithin the time period is included. Hemoglobin A1C 7.8(A) 4.0 - 6.0 % QC Media Lot # [id number] Lot# Expiration Date Blood 09/10/2024 11:3 6 AM EST Result [facility] Lexi North NP POINT OF CARE TEST ENTER/EDIT OR DERABLES Final Result * POCT Glucose (09/10/2024 11:36 AM EST) Only the most recent of3 resultswithin the time period is included. Glucose Blood, POC 91 60 - 200 mg/dL QC Media Lot # [id number] Lot# Expiration Date 110,62 Blood Capillary blood specimen / Unknown 09/10/2024 11:36 AM EST Lexi North NP POINT OF CARE TEST ENTER/EDIT OR DERABLES Final Result * Gross and Microscopic Level 3 (09/02/2024 2:15 PM EST) 09/02/2024 2:15 PM EST 09/02/2024 2:30 PM EST Narrative [facility] - 09/06/2024 10:22 AM EST ----- ------- Name: KvngRasta ? Age/Sex: 59/M ? : 1965 Unit#: [id number] ?? Attend Dr: Cesar Humphries MD ?Re09/02/24 ?Status: DEP REF ? Location: HO.LNP ?Disch: ? ----- ------- SPEC : [id number] ?RECD: 09/02/24-0 ? STATUS: ??SOUT ? REQ NUM: [id number] ? BRIA: 09/02/24-3525 ? SUBM DR: Cesar Humphries MD ? ENTERED: ??09/02/24-150 ?SP TYPE: Surgical ? OTHR DR: Scot [...] No hemorrhagic or necrotic foci are identified. ??Pipe Smoking Machine Offbearer sections are submitted in cassettes [id number]-A3. ??CEDS This case was reviewed intradepartmentally. Copies To: ?? Cesar Humphries MD ?? [facility] General Surgeons ?? [address] [facility] ?? [place] [address] ?? [phone] ?? Name,Scot SEARS ?? [address] [facility] ?? [place] [address] ?? [phone] ----- ------- Signed (signature on file) Reinier Farmer MD 09/06/24 1022 ? ----- ------- ? END OF REPORT ? us Generic External Data Provider LAB CYTOLOGY JANEEN MI Final Result [facility] [address] [place] [address] [phone] * CT Chest w/o Contrast (08/12/2024 2:07 PM EST) Anatomical Region Laterality Modality Body, Chest Computed Tomogra phy 08/12/2024 2:07 PM EST Narrative 09/22/2024 11:09 AM EST ? [facility] ?[address] ?[place] [address] ? CT Scan Report ? Signed ? Patient: Cameron Calderon ?MR#: [id number] ?? 14 ? : 1965 ?Acct:[id number] ? Age/Sex: 59 / M ?ADM Date: 08/12/24 ? Loc: HO.CT ? Attending Dr: Russ Quiñonez MD ? Ordering Physician: Russ Quiñonez MD ?? Date of Service: 08/12/24 ?? Procedure(s): CT chest wo IV con ?? Accession Number(s): [id number] ? cc: Name,Scot SEARS; Russ Quiñonez MD ? Report Number: ?? [id number]: Total DLP = ??202.00 mGy-cm ?? EXAMINATION: [...] DD/ 1407 ? TD/TT: 08/12/24 1415 ? Insurance Follow Up Rep: ? Procedure Note Prasanth, Image - 09/22/[address] [address] [address] Scan Report Signed Patient: Cameron Calderon [facility] [id number] 14 : 1965Acct:[id number] Age/Sex: 59 / MADM Date: 08/12/24 Loc: HO.CT Attending Dr: Russ Quiñonez MD Ordering Physician: Russ Quiñonez MD Date of Service: 08/12/24 Procedure(s): CT chest wo IV con Accession Number(s): [id number] cc: Name,Scot SEARS; Russ Quiñonez MD Report Number: [id number]: Total DLP = 202.00 mGy-cm EXAMINATION: CT [...] 09/22/24 1106 DD/ 1407 TD/TT: 08/12/24 1415 Insurance Follow Up Rep: [facility] External Provider IMG CT PROCEDURES Edited Result - Final * US Extremity Non Vascular (08/05/2024 12:07 PM EST) Anatomical Region Laterality Modality Ultrasound 08/05/2024 12:0 7 PM EST Narrative 08/06/2024 9:22 AM EST ? [facility] ?[address] ?[place] [address] ? Ultrasound Report ? Signed ? Patient: Cameron Calderon ?MR#: [id number] ?? 14 ? : 1965 ?Acct:[id number] ? Age/Sex: 59 / M ?ADM Date: 08/05/24 ? Loc: HO.US ? Attending DrScout Degroot ? Ordering Physician: Rianna Degroot ?? Date of Service: 08/05/24 ?? Procedure(s): US extremity nonvascular ?? Accession Number(s): [id number] ? cc: Rianna Degroot ? EXAMINATION: ?? [...] ??Rk Gutierrez MD ??08/06/2024 09:20 AM EST ?? RP ? Dictated By: ?Rk Gutierrez MD ? Signed By: ?<Electronically signed by Rk Gutierrez MD in OV> ? 08/06/24 0920 ? DD/ 1207 ? TD/TT: 08/05/24 1213 ? Insurance Follow Up Rep: SS ? Procedure Note Dontawandater, Image - 08/06/2024 [place] [address] Ultrasound Report Signed Patient: Cameron Calderon MMR#: [id number] 14 : 1965Acct:[id number] Age/Sex: 59 / MADM Date: 08/05/24 Loc: HO.US Attending Dr: Rianna Degroot Ordering Physician: Rianna Degroot Date of Service: 08/05/24 Procedure(s): US extremity nonvascular Accession Number(s): [id number] cc: Rianna Degroot EXAMINATION: ULTRASOUND RIGHT SHOULDER CLINICAL INDICATION: [...] 08/06/24 0920 DD/ 1207 TD/TT: 08/05/24 1213 Insurance Follow Up Rep: SS us Rianna Degroot ANIMAL RIDES MANAGER IMG US PROCEDURES Final Result * Albumin, Random Urine W/Creatinine (07/30/2024 4:03 PM EST) Creatinine, Urine 122.34 mg/dL [facility] Microalbumin Urine 14.0 mg/L [facility] Microalbum Creatinine Ratio Ur 11.4 <30 ug/mg cr [facility] Comment:Albumin/Creatinine R atio Reference Ranges: Normal: < 30 ug/mg creatinine Microalbuminuria: 30 - 300 ug/mg creatinineClinical Albuminuria: > 300 ug/mg creatinine Urine (Urine, Random) 07/30/2024 4:03 PM EST 07/30/2024 5:39 PM EST us Lexi North ANIMAL RIDES MANAGER LAB URINE ORDERABLES Final Resul t [facility] [address] [place] [phone] * (ABNORMAL) Lipid Panel, Standard (07/30/2024 4:03 PM EST) Triglycerides 339(H) <150 mg/dL [facility] Comment:Desirable Triglyceri de: less than 150 mg/dLBorderline High Triglyceride 150-199 mg/dLHigh Triglyceride: 200-499 mg/dLVery High Triglyceride: greater than or equal to 5OO mg/dL Cholesterol 237(H) <200 mg/dL [facility] Comment:Desirable Cholestero l: less than 200 mg/dLBorderline High Cholesterol: 200-239 mg/dLHigh Cholesterol: greater than 239 mg/dL LDL Cholesterol Calculated 140(H) <100 mg/dL [facility] Comment:Desirable LDL: less than 100 mg/dLNear Optimal/Above Optimal LDL: 110- 129 mg/dLBorderline High LDL: 130-159 mg/dLHigh LDL: 160-189 mg/dLVery High LDL: greater than or equal to 190 mg/dL HDL Cholesterol 30(L) >40 mg/dL [facility] Comment:Desirable HDL: great er than 40 mg/dL Note: This HDL assay may give artificially low results in patients with liver disease. Blood Venous blood specimen / Unknown 07/30/2024 4:03 PM EST 07/30/2024 5:39 PM EST us Lexi North ANIMAL RIDES MANAGER LAB BLOOD ORDERABLES Final Resul t Performing Organization Address [facility] Co de Phone Number [facility] [address] [place] [phone] * VENOUS BLOOD GAS (07/06/2024 1:02 AM EST) Only the most recent of2 resultswithin the time period is included. Pathologist [facility] VBG pH 7.36 7.32 - 7.43 [facility] Comment:METER #: [id number] additional_comment: Adalberto baez VBG PCO2 41 mmHg [facility] Comment:METER #: [id number] additional_comment: Adalberto baez VBG PO2 104 mmHg [facility] Comment:METER #: [id number] additional_comment: Adalberto baez VBG Base Excess -1.2 mmol/L [facility] Comment:METER #: [id number] additional_comment: Adalberto baez VBG HCO3 24 22 - 26 mmol/L [facility] Comment:METER #: [id number] additional_comment: Adalberto baez O2 Sat, Rich 99.0 % [facility] Comment:METER #: [id number] additional_comment: Adalberto baez 07/06/2024 1:02 AM EST 07/06/2024 1:07 AM EST us Generic External Data Provider LAB BLOOD ORDERAB LES Final Result Performing Organization Address [facility] Co de Phone Number [facility] [address] [place] [phone] * (ABNORMAL) CBC (07/06/2024 12:59 AM EST) White Blood Count 9.0 4.8 - 10.8 X10*3/uL [facility] Red Blood Count 4.58(L) 4.60 - 5.80 X10*6/uL [facility] Hemoglobin 13.1(L) 14.0 - 18.0 g/dl [facility] Hematocrit 38.1(L) 42.0 - 52.0 % [facility] Mean Corpuscular Volume 83.2 80.0 - 98.0 fL [facility] Mean Corpuscular Hemoglobin 28.6 27.0 - 33.0 pg [facility] Mean Corpuscular HGB Conc 34.4 31.0 - 36.0 g/dl [facility] Red Cell Distribution Width 14.6 11.0 - 16.0 % [facility] Platelet Count 305 160 - 400 X10*3/uL [facility] Mean Platelet Volume 9.4 9.4 - 12.4 fL [facility] NRBC Pct Auto 0.0 0.0 - 0.2 /100WBC [facility] NRBC Abs Auto 0.000 0.0 - 0.012 X10*3/uL [facility] 07/06/2024 12:5 9 AM EST 07/06/2024 1:02 AM EST us Generic External Data Provider LAB BLOOD ORDERAB LES Final Result Performing Organization Address City/[facility]/ZIP Co de Phone Number [facility] [address] [place] [address] [phone] * (ABNORMAL) Glucose, Whole Blood (07/06/2024 12:33 AM EST) Only the most recent of3 resultswithin the time period is included. Glucose, Whole Blood 315(H) 60 - 115 mg/dL [facility] Comment:METER #: [id number] 07/06/2024 12:3 3 AM EST 07/06/2024 12:40 AM EST us Generic External Data Provider LAB BLOOD ORDERAB LES Final Result Performing Organization Address City/[facility]/ZIP Co de Phone Number [facility] [address] [place] [address] [phone] * XR Chest 1 View (07/05/2024 9:30 PM EST) Anatomical Region Laterality Modality Chest Radiographic Jackie ging 07/05/2024 9:30 PM EST Narrative 07/05/2024 11:30 PM EST ? [facility] ?[address] ?[place] [address] ?XRay Report ? Signed ? Patient: Calderon,Rasta ?MR#: [id number] ?? 14 ? : 1965 ?Acct:[id number] ? Age/Sex: 59 / M ?ADM Date: 07/05/24 ? Loc: HO.ED ? Attending Dr: ? Ordering Physician: Giorgio Mccollum MD ?? Date of Service: 07/05/24 ?? Procedure(s): XR chest 1V ?? Accession Number(s): [id number] ? cc: Giorgio Mccollum MD; Name,Scot SEARS [...] in OV> ? 07/05/24 2326 ? DD/ ? TD/TT: 07/05/242134 ? Insurance Follow Up Rep: EF ? Procedure Note Prasanth, Riya - 07/05/[address] [address] XRay Report Signed Patient: Cameron Calderon [facility]#: [id number] 14 : 1965Acct:[id number] Age/Sex: 59 / MADM Date: 07/05/24 Loc: HO.ED Attending Dr: Ordering Physician: Giorgio Mccollum MD Date of Service: 07/05/24 Procedure(s): XR chest 1V Accession Number(s): [id number] cc: Giorgio Mccollum MD; Name,Scot SEARS EXAMINATION: XR CHEST CLINICAL INFORMATION: Chest pain COMPARISON: Chest radiograph 03/16/2024 10:18 AM. TECHNIQUE: Frontal view of the chest was obtained. FINDINGS: Normal appearance of the cardiomediastinal structures. Pleura normal pattern of pulmonary vasculature. No focal pulmonary consolidation. XR/XR chest 1V IMPRESSION: No acute cardiopulmonary abnormalities. Electronically signed by: Chencho Lozoya MD 07/05/2024 11:26 PM EST RP Dictated By: Chencho Lozoya MD Signed By: <Electronically signed by Chencho Lozoya MD in OV> 07/05/242325 DD/ 29 TD/TT: 07/05/242134 Insurance Follow Up Rep: EF [facility] External Provider IMG XR PROCEDURES Edited Result - Final * (ABNORMAL) Urinalysis, Complete, with Reflex to Culture (07/05/2024 9:10 PM EST) Color Urine Yellow [facility] Appearance Urine Clear [facility] PH 5.5 5.0 - 9.0 [facility] Glucose Urine UA >=1000(A) Negative mg/dL [facility] Urine Blood Negative Negative [facility] Specific [place] - Urine 1.025 1.005 - 1.025 [facility] Urine Protein Negative Neg-Trace mg/dL [facility] Urine Ketones 40 Negative mg/dL [facility] Nitrite Urine Negative Negative [facility] Leukocyte Esterase Urine Negative Negative [facility] RBC Urine 0-2 0 - 2 /HPF [facility] Urine WBC 0-5 0 - 5 /HPF [facility] Urine Squamous Epithelial Cell 0-2 0 - 2 /HPF [facility] Urine Bacteria None Seen None Seen [facility] Hyaline Casts, Urine 11-20 0 - 2 /LPF [facility] 07/05/2024 9:10 PM EST 07/05/2024 9:14 PM EST Narrative [facility] - 07/05/2024 9:54 PM EST Urine, Clean Catch us Generic External Data Provider LAB URINE ORDERAB LES Final Result [facility] [address] [place] [address] [phone] * Drug Monitoring, Panel 1, Screen, Urine (07/05/2024 9:10 PM EST) Opiate Screen Urine Not Detected Not Detect [facility] Comment:Opiate cut-off is 30 0 ng/mL.Positive results are unconfirmed and should not be used fornon-medical purposes. Barbiturates, Urine Not Detected Not Detect [facility] Comment:Barbiturate cut-off is 200 ng/mL.Positive results are unconfirmed and should not be used fornon-medical purposes. Phencyclidine Screen Urine Not Detected Not Detect [facility] Comment:Phencyclidine cut-of f is 25 ng/mL.Positive results are unconfirmed and should not be used fornon-medical purposes. Amphetamine Screen Urine Not Detected Not Detect [facility] Comment:Amphetamine cut-off is 1000 ng/mL.Positive results are unconfirmed and should not be used fornon-medical purposes. Benzodiazepines Screen Urine Not Detected Not Detect [facility] Comment:Benzodiazepine cut-o ff is 200 ng/mL.Positive results are unconfirmed and should not be used fornon-medical purposes. Cocaine Screen Urine Not Detected Not Detect [facility] Comment:Cocaine cut-off is 3 00 ng/mL.Positive results are unconfirmed and should not be used fornon-medical purposes. Cannabinoid Screen Urine Not Detected Not Detect [facility] Comment:Cannabinoid cut-off is 50 ng/mL.Positive results are unconfirmed and should not be used fornon-medical purposes. Methadone Screen, Urine Not Detected Not Detect ng/mL [facility] Comment:Methadone cut-off is 300 ng/mL.Positive results are unconfirmed and should not be used fornon-medical purposes. FENTANYL URINE Not Detected Not Detect [facility] Comment:Fentanyl cut-off is 1 ng/mL.Positive results are unconfirmed and should not be used fornon-medical purposes. Oxycodone Urine Screen Not Detected Not Detect ng/mL [facility] Comment:Oxycodone cut-off is 100 ng/mL.Positive results are unconfirmed and should not be used fornon-medical purposes. Buprenorphine Screen Not Detected Not Detect ng/mL [facility] Comment:Buprenorphine cut-of f is 5 ng/mL.Positive results are unconfirmed and should not be used fornon-medical purposes. 07/05/2024 9:10 PM EST 07/05/2024 11:22 PM EST us Generic External Data Provider LAB URINE ORDERAB LES Final Result Performing Organization Address City/[facility]/ZIP Co de Phone Number [facility] [address] [place] [phone] * (ABNORMAL) Urinalysis w/reflex microscopic (07/05/2024 9:10 PM EST) Color Urine Yellow [facility] Appearance Urine Clear [facility] PH 5.5 5.0 - 9.0 [facility] Glucose Urine UA >=1000(A) Negative mg/dL [facility] Urine Blood Negative Negative [facility] Specific [place] - Urine 1.025 1.005 - 1.025 [facility] Urine Protein Negative Neg-Trace mg/dL [facility] Urine Ketones 40 Negative mg/dL [facility] Nitrite Urine Negative Negative [facility] Leukocyte Esterase Urine Negative Negative [facility] 07/05/2024 9:10 PM EST 07/05/2024 9:14 PM EST Narrative [facility] - 07/05/2024 9:35 PM EST Urine, Clean Catch us Generic External Data Provider LAB URINE ORDERAB LES Final Result Performing Organization Address City/[facility]/ZIP Co de Phone Number [facility] [address] [place] [address] [phone] * POCT urinalysis dipstick manually resulted (07/05/2024 6:51 PM EST) Pathologist [facility] Color, UA Yellow Clarity, UA Clear Glucose, UA Many Comment:1000mg/dL Bilirubin, UA Trace Comment:small Ketones, UA Positive Comment:40mg/dL Spec Grav, UA 1.010 Blood, UA Negative Negative, None Detected pH, UA 5.5 Protein, UA Negative Urobilinogen, UA 0.2 Leukocytes, UA Negative Negative, Rare, Trace Nitrite, UA Negative Negative, None Detected Appearance, UA clear QC Media Lot # [id number] Lot# Expiration Date Urine 07/05/2024 6:51 PM EST Rianna Degroot NP POINT OF CARE TEST ENTER/EDIT O RDERABLES Final Result * Hepatitis C Ab (11/05/2023 8:18 AM EDT) [facility] Hepatitis C Antibody Nonreactive Nonreactive [facility] Comment:Antibodies to HCV no t detected; does not exclude early acuteHCV infection. Blood Venous blood specimen / Unknown 11/05/2023 8:18 AM EDT 11/05/2023 11:14 AM EDT us Scot Mathews MD LAB BLOOD ORDERABLES Final Resul t [facility] [address] [place] [address] [phone] * HIV-1/2 Antigen and Antibodies, Fourth Generation, with Reflexes (11/05/2023 8:18 AM EDT) [facility] HIV AB/AG Nonreactive Nonreactive [facility] Comment:HIV-1 p24 Ag and/or HIV-1/HIV-2 Ab not detected.A test result that is nonreactive does not exclude thepossibility of exposure to or infection with HIV-1 and/orHIV-2. Nonreactive results in this assay for individualswith prior exposure to HIV-1 and/or HIV-2 may be due toantigen and antibody levels that are below the limit ofdetection of this assay.The [employer] Alinity HIV Ag/Ab Combo assay result andsupplemental assay results should be interpreted inconjunction with the patient's clinical presentation,history and other laboratory results. If the results areinconsistent with clinical evidence, additional testing issuggested to confirm the result. Blood Venous blood specimen / Unknown 11/05/2023 8:18 AM EDT 11/05/2023 11:14 AM EDT us Scot Mathews MD LAB BLOOD ORDERABLES Final Resul t [facility] [address] [place] [phone] from Last 3 Months or Most Recently Relevant to Health Maintenance Insurance [address] [place] [address] [address] [facility] [address] DAJA Workman [address] [facility] MEDICAID STAND ADULT [address] [place] Work[place] [address] [address] [place] Workman [address] Care Teams Truck Mechanic Apprentice Relationship Specialty Start Date End Date Name, MD Scot [address] [facility] [place] [address] PCP - General Internal Medicine 08/16/22 Alicia Fuentes PharmD [address] [place] [address] Pharmacist Internal Medicine 12/18/22 Alicia Fuentes, PharmD [address] [place] [address] Pharmacist Internal Medicine 07/28/24 Mian Gillette Strategic Accounts ManagerHand Edge Bander 12/29/23 [facility] 07/10/24
--- OUTSIDE RECORDS SUMMARY | 2024-09-27 12:09 | XMS_ITS | Encounter Summary ---
Author Organization [employer] Address [address] [facility] 7t [place] [address] Care Team Providers Care Electronic Scale Subassembler Name Role Phone Name, Scot SEARS Primary Care Provider [phone] Puia, Alicia PharmD Unavailable [phone] Puia, Alicia PharmD Unavailable [phone] Reason for Visit * Reason Onset Date Comments Chart Prep 09/01/2024 Encounter Details Date Type Department Care Team (Late st Contact Info) Description 09/01/2024 Telephone [facility] [address] [place], [place] [phone] Brittany Mcclure MA Chart Prep Social History [...] with others, in a hotel, in a snf, living outside on the street, on a [...] Description 10/28/2024 10:00 AM EST Medication Management [facility] [address] [place] [address] Alicia Fuentes, PharmD [address] [place] [address] 11/05/2024 11:00 AM EDT Office Visit [facility] [address] [place] [address] [phone] Name, MD Scot [address] [place] [address] documented as of this encounter Goals Goal Patient Goal Type Associated Problems Recent Progress Patient-Stated? Author Smoking cessation General No Puia, Alicia, PharmD documented as of this encounter Visit Diagnoses Not on filedocumented in this encounter Additional Health Concerns Assessment Noted Time PHQ-9 Depression Total Score: 15 024 10:43 AM EDT documented as of this encounter Care Teams Electronic Scale Subassembler Relationship Specialty Start Date End Date Name, MD Scot [address] [place] [address] PCP - General Internal Medicine 08/16/22 Alicia Fuentes PharmD [address] [place] [address] Pharmacist Internal Medicine 12/18/22 Alicia Fuentes PharmD [address] [place] [address] Pharmacist Internal Medicine 07/28/24 Mian Gillette Senior Mobile Application DeveloperSpark Plug Tester 12/29/23 [facility] 07/10/24 documented as of this encounter
--- OUTSIDE RECORDS SUMMARY | 2024-09-27 12:09 | XMS_ITS | Encounter Summary ---
Author Organization [employer] Address [address] [facility] [address] 7t [place] [address] Care Team Providers Care Engine Hostler Name Role Phone Name, Scot SEARS Primary Care Provider [phone] Puia, Alicia PharmD Unavailable [phone] Puia, Alicia PharmD Unavailable Reason for Visit * Reason Onset Date Comments Referral 10/09/2022 Encounter Details Date Type Department Care Team ([facility] st Contact Info) Description 10/09/2022 Telephone [facility] MED[facility]INE 230 [place], [place] [phone] Name, MD Scot 230 [place], [place] [phone] Referral Social History Tobacco Use Types Packs/Day [...] a referral to be [facility] Please contact mom at [phone] documented in this encounter Plan of Treatment Upcoming Encounters Date Type Department Care Team (Late st Contact Info) Description 10/28/2024 10:00 AM EST Medication Management [facility]INE [address] [place] [phone] [place] [address] 11/05/2024 11:00 AM EDT Office Visit [facility] [address] [place], [place] [address] [address] Name, MD Scot [facility] [place] [address] documented as of this encounter Visit Diagnoses Not on filedocumented in this encounter Additional Health Concerns Assessment Noted Time PHQ-9 Depression Total Score: 0 08/16/20 9:25 AM EST documented as of this encounter Care Teams Engine Hostler Relationship Specialty Start Date End Date Name, MD Scot [facility]ely [facility] [place] [address] PCP - General Internal Medicine 08/16/22 Alicia Fuentes PharmD [facility] [place] [address] Pharmacist Internal Medicine 12/18/22 Alicia Fuentes PharmD Mely [facility] [place] [address] Pharmacist Internal Medicine 07/28/24 Mian Gillette Telephone Triage NurseField Supervisor Seed Production 12/29/23 [facility] 07/10/24 documented as of this encounter
--- OUTSIDE RECORDS SUMMARY | 2024-09-27 12:09 | XMS_ITS | Encounter Summary ---
Author Organization [employer] Address [address] [facility] 7t [place] [address] Care Team Providers Care Power Supply Engineer Name Role Phone Name, Scot SEARS Primary Care Provider [phone] Puia, Alicia PharmD Unavailable [phone] Puia, Alicia PharmD Unavailable [phone] Encounter Details Date Type Department Care [...] 10/28/2024 10:00 AM EST Medication Management [facility] [address] [place] [place] [address] Alicia Fuentes PharmD [address] [place] [address] 11/05/2024 11:00 AM EDT Office Visit [facility] [address] [place] [place] [address] Name, MD Scot [address] [place] [address] documented as of this encounter Goals Goal Patient Goal Type Associated Problems Recent Progress Patient-Stated? Author Smoking cessation General No Alicia Fuentes PharmD documented as of this encounter Visit Diagnoses Not on filedocumented in this encounter Additional Health Concerns Assessment Noted Time PHQ-9 Depression Total Score: 15 024 10:43 AM EDT documented as of this encounter Care Teams Power Supply Engineer Relationship Specialty Start Date End Date NameScot MD [address] [place] [address] PCP - General Internal Medicine 08/16/22 Alicia Fuentes, PharmD [address] [place] [address] Pharmacist Internal Medicine 12/18/22 Alicia Fuentes, Bob [address] [place] [address] Pharmacist Internal Medicine 07/28/24 Mian Gillette Er RegistrarAccreditation Specialist 12/29/23 [facility] 07/10/24 documented as of this encounter
--- OUTSIDE RECORDS SUMMARY | 2024-09-27 12:09 | XMS_ITS | Encounter Summary ---
Author Organization [employer] Address [address] [facility] 7t [place] [address] Care Team Providers Care Mold Builder Name Role Phone Name, Scot SEARS Primary Care Provider [phone] Puia, Alicia PharmD Unavailable [phone] Puia, Alicia PharmD Unavailable Reason for Visit * Reason Onset Date Comments Med Refill 08/26/2024 Encounter Details Date Type Department Care Team (Late st Contact Info) Description 08/26/2024 Telephone [facility]ICINE 230 [place], [place] [phone] Name, MD Scot 230 [place], [place] [phone] Med Refill Social History Tobacco Use Types [...] for patient to contact Bettina Faulkner at [phone]. * Telephone Encounter - Radha Gonzáles LPN - 08/26/2024 9:26 AM EST Script was sent to [facility] on 07/28/24 with 11 refills. * Telephone Encounter - Hazel Arellano - 08/26/2024 9:18 AM EST TC from pt requesting medication refill. Medications needing refill : Continuous Glucose Sensor (FreeStyle Neel 2 Sensor) [facility] be sent to: [facility] pharmacy documented in this encounter Plan of Treatment Upcoming Encounters Date Type Department Care Team (Late st Contact Info) Description 10/28/2024 10:00 AM EST Medication Management [facility] [place] [address] Alicia Fuentes PharmD [facility] [place] [address] 11/05/2024 11:00 AM EDT Office Visit [facility] [place] [address] Name, [place] [address] documented as of this encounter Goals Goal Patient Goal Type Associated Problems Recent Progress Patient-Stated? Author Smoking cessation General No Alicia Fuentes PharmD documented as of this encounter Visit Diagnoses Not on filedocumented in this encounter Additional Health Concerns Assessment Noted Time PHQ-9 Depression Total Score: 15 024 10:43 AM EDT documented as of this encounter Care Teams Mold Builder Relationship Specialty Start Date End [place] [address] PCP - General Internal Medicine 08/16/22 [place] [address] Pharmacist Internal Medicine 12/18/22 [place] [address] Pharmacist Internal Medicine 07/28/24 Mian Gillette Process Control ManagerServomechanism Assembler 12/29/23 [facility] 07/10/24 documented as of this encounter
--- OUTSIDE RECORDS SUMMARY | 2024-09-27 12:09 | XMS_ITS | Encounter Summary ---
Author Organization [employer] Address [address] [facility] [facility] [address] 7t [place] [address] Care Team Providers Care School Bus Dispatcher Name Role Phone Name, Scot SEARS Primary Care Provider [phone] Puia, Alicia PharmD Unavailable [phone] Puia, Alicia PharmD Unavailable [phone] Encounter Details Date Type Department Care [...] with others, in a hotel, in a fpc, living outside on the street, on a [...] AM EST Medication Management [facility] [address] [place] [address] Alicia Fuentes PharmD [address] [place] [address] 11/05/2024 11:00 AM EDT Office Visit [facility] [address] [place] [address] NameScot MD [address] [place] [address] documented as of this encounter Goals Goal Patient Goal Type Associated Problems Recent Progress Patient-Stated? Author Smoking cessation General No Alicia Fuentes PharmD documented as of this encounter Visit Diagnoses Not on filedocumented in this encounter Additional Health Concerns Assessment Noted Time PHQ-9 Depression Total Score: 15 024 10:43 AM EDT documented as of this encounter Care Teams School Bus Dispatcher Relationship Specialty Start Date End Date NameScot MD [address] [place] [address] PCP - General Internal Medicine 08/16/22 Alicia Fuentes PharmD [address] [place] [address] Pharmacist Internal Medicine 12/18/22 Alicia Fuentes, Bob [address] [place] [address] [place], [place] [phone] Pharmacist Internal Medicine 07/28/24 Mian Gillette Field HandRn Correctional 12/29/23 [facility] 07/10/24 documented as of this encounter
--- OUTSIDE RECORDS SUMMARY | 2024-09-27 12:09 | XMS_ITS | Encounter Summary ---
Author Organization [employer] Address [address] [facility] 7t [place] [address] Care Team Providers Care District Sales Manager Name Role Phone Name, Scot SEARS Primary Care Provider [phone] Puia, Alicia PharmD Unavailable Puia, Alicia PharmD Unavailable Reason for Visit * Reason Onset Date Comments Med Refill 07/14/2023 Encounter Details Date Type Department Care Team ([facility] st Contact Info) Description 07/14/2023 Telephone [facility] MEDICINE 230 [place], [place] [phone] Name, MD Scot 230 [place], [place] [phone] Med Refill Social History Tobacco Use Types [...] 11:00 AM EST Medication was sent to [facility] on 02/14/23 with 11 refills. * Telephone Encounter - Luis Faulkner - 07/14/2023 10:51 AM EST Tc from pt requesting a refill for Umeclidinium [place] (Incruse Ellipta) 62.5 MCG/ACT aerosol powder. documented in this encounter Plan of Treatment Upcoming Encounters Date Type Department Care Team (Late st Contact Info) Description 10/28/2024 10:00 AM EST Medication Management [facility] [address] [place] [address] Alicia Fuentes, PharmD [address] [place] [address] 11/05/2024 11:00 AM EDT Office Visit [facility] [address] [place] [address] Name, MD Scot 230 [place] [address] documented as of this encounter Goals Goal Patient Goal Type Associated Problems Recent Progress Patient-Stated? Author Smoking cessation General No Alicia Fuentes PharmD documented as of this encounter Visit Diagnoses Not on filedocumented in this encounter Additional Health Concerns Assessment Noted Time PHQ-9 Depression Total Score: 0 08/16/20 22 9:25 AM EST documented as of this encounter Care Teams District Sales Manager Relationship Specialty Start Date End Date Name, MD Scot [address] [place] [address] PCP - General Internal Medicine 08/16/22 Alicia Fuentes PharmD [address] [place] [address] Pharmacist Internal Medicine 12/18/22 Alicia Fuentes PharmD [address] [place] [address] Pharmacist Internal Medicine 07/28/24 Mian Gillette Surgical Technology InstructorBattery Assembler 12/29/23 [facility] 07/10/24 documented as of this encounter
--- OUTSIDE RECORDS SUMMARY | 2024-09-27 12:09 | XMS_ITS | Encounter Summary ---
Author Organization [employer] Address [address] [facility] [address] [facility] [facility] [address] 7t [place] [address] Care Team Providers Care Plastic Boat Patcher Name Role Phone Name, Scot SEARS Primary Care Provider [phone] Puia, Alicia PharmD Unavailable [phone] Puia, Alicia PharmD Unavailable [phone] Encounter Details Date Type Department Care Team ([facility] Contact Info) Description 08/12/2024 Orders Only [facility] External Provider, [facility] Social History Tobacco Use Types Packs/Day Years [...] Description 10/28/2024 10:00 AM EST Medication Management [facility] [address] [place] [address] Alicia Fuentes, PharmD [address] [place] [address] 11/05/2024 11:00 AM EDT Office Visit [facility] [address] [place] [address] Name, MD Scot [address] [place] [address] documented as of this encounter Goals Goal [...] EST Narrative 09/22/2024 11:09 AM EST ? [facility] ?[address] ?[place] [address] ? CT Scan Report ? Signed ? Patient: Calderon,Rasta ?MR#: [id number] ?? 14 ? : 1965 ?Acct:[id number] ? Age/Sex: 59 / M ?ADM Date: 08/12/24 ? Loc: HO.CT ? Attending Dr: Russ Quiñonez MD ? Ordering Physician: Russ Quiñonez MD ?? Date of Service: 08/12/24 ?? Procedure(s): CT chest wo IV con ?? Accession Number(s): [id number] ? cc: Reid,Scot SEARS; Russ Quiñonez MD ? Report Number: ?? [id number]: Total DLP = ??202.00 mGy-cm ?? EXAMINATION: [...] DD/ 1407 ? TD/TT: 08/12/24 1415 ? J[employer]'S Agent: ? Procedure Note Donotabhilashinterpreter, Image - 09/22/[address] [place] [address] [address] Scan Report Signed Patient: Cameron Calderon MMR#: [id number] 14 : 1965Acct:[id number] Age/Sex: 59 / MADM Date: 08/12/24 Loc: HO.CT Attending Dr: Russ Quiñonez MD Ordering Physician: Russ Quiñonez MD Date of Service: 08/12/24 Procedure(s): CT chest wo IV con Accession Number(s): [id number] cc: Scot Mathews MD; Russ Quiñonez MD Report Number: [id number]: Total DLP = 202.00 mGy-cm EXAMINATION: CT [...] MD 09/22/2024 11:06 AM [facility] Dictated By: Shane Lopez MD Signed By: <Electronically signed by Shane Callahan MDin OV> 09/22/24 1106 DD/ 1407 TD/TT: 08/12/24 1415 Jockey'S Agent: [facility] External Provider IMG CT PROCEDURES Edited Result - Final documented in this encounter Visit Diagnoses Not on filedocumented in this encounter Additional Health Concerns Assessment Noted Time PHQ-9 Depression Total Score: 15 024 10:43 AM EDT documented as of this encounter Care Teams Plastic Boat Patcher Relationship Specialty Start Date End Date Name, MD Scot 230 [place] [address] PCP - General Internal Medicine 08/16/22 Alicia Fuentes PharmD 230 [place] [address] Pharmacist Internal Medicine 12/18/22 Alicia Fuentes PharmD 230 [place] [address] Pharmacist Internal Medicine 07/28/24 Mian Gillette Electrocardiograph OperatorData Clerk 12/29/23 [facility] 07/10/24 documented as of this encounter
--- OUTSIDE RECORDS SUMMARY | 2024-09-27 12:09 | XMS_ITS | Encounter Summary ---
Author Organization [employer] Address [address] [facility] 7t [place] [address] Care Team Providers Care Transportation Clerk Name Role Phone Name, Scot SEARS Primary Care Provider [phone] Puia, Alicia PharmD Unavailable [phone] Puia, Alicia PharmD Unavailable Reason for Visit * Reason Onset Date Comments Hospital Follow-up 07/09/2024 Encounter Details Date Type Department Care Team ([facility] st Contact Info) Description 07/09/2024 Telephone [facility] MEDICINE 230 [place], [place] [phone] Name, MD Scot 230 [place], [place] [phone] Hospital Follow-up Social History Tobacco Use Types [...] from pt requesting a HDF appt. [facility] Date of admission: 07/06/24 Discharge date: 07/09/24 Diagnosed: Diabetic and high BP Please contact at [phone] Urdu documented in this encounter Plan of Treatment Upcoming Encounters Date Type Department Care Team (Late st Contact Info) Description 10/28/2024 10:00 AM EST Medication Management [facility] MED[facility]INE [address] [place] [address] Alicia Fuentes, AnkushD 230 [place] [address] 11/05/2024 11:00 AM EDT Office Visit [facility] [address] [place] [address] [phone] Name, MD Scot 230 [place] [address] documented as of this encounter Goals Goal Patient Goal Type Associated Problems Recent Progress Patient-Stated? Author Smoking cessation General No Alicia Fuentes, Bob documented as of this encounter Visit Diagnoses Not on filedocumented in this encounter Additional Health Concerns Assessment Noted Time PHQ-9 Depression Total Score: 15 024 10:43 AM EDT documented as of this encounter Care Teams Transportation Clerk Relationship Specialty Start Date End Date Name, MD Scot [address] [place] [address] PCP - General Internal Medicine 08/16/22 Alicia Fuentes PharmD [address] [place] [address] Pharmacist Internal Medicine 12/18/22 Alicia Fuentes PharmD [address] [place] [address] Pharmacist Internal Medicine 07/28/24 Mian Gillette Accounts Payable AssociateBeading Machine Operator 12/29/23 [facility] 07/10/24 documented as of this encounter
--- OUTSIDE RECORDS SUMMARY | 2024-09-27 12:09 | XMS_ITS | Encounter Summary ---
Author Organization [employer] Address [address] [facility] 7t [place] [address] Care Team Providers Care Dry Press Operator Helper Name Role Phone NameScot MD Primary Care Provider [phone] Puia, Alicia PharmD Unavailable Puia, Alicia PharmD Unavailable Reason for Referral * Consultation (Routine) - Authorized Specialty Diagnoses / Procedures Referred By Contminerva t Referred To Contact Pharmacy Diagnoses New onset type 2 diabetes mellitus ([facility]) Primary hypertension NameScot MD [address] [place] [address] Phone: tel: fax: Referral ID Status Reason Start Date Expiration Date Visits Requested Visits Authorized [id number] Authorized Consult and Treat 09/13/2024 09/13/2025 6 6 Reason for Visit * Reason Onset Date Comments Appointment Request 09/01/2024 Encounter Details Date Type Department Care Team ([facility] st Contact Info) Description 09/01/2024 Telephone [facility] MEDICINE [address] [place], [place] [phone] Scot Gray MD [address] [place], [place] [phone] Appointment Request Social History Tobacco Use Types [...] Thank you! * Telephone Encounter - Vero Hurleycameron Gage - 09/01/2024 10:11 AM EST Tc from pt requesting reschedule 09/01 appt with Alicia Fuentes. Pt forgot appt. documented in this encounter Plan of Treatment Upcoming Encounters Date Type Department Care Team (Late st Contact Info) Description 10/28/2024 10:00 AM EST Medication Management [facility] MEDICINE [address] [place] [address] Alicia Fuentes PharmD [address] [place] [address] 11/05/2024 11:00 AM EDT Office Visit [facility] [address] [place] [address] NameScot MD [address] [place] [address] Scheduled Referrals Name Type Priority Associated Diagnoses [...] documented as of this encounter Care Teams Dry Press Operator Helper Relationship Specialty Start Date End Date Scot Gray MD [address] [place] [address] PCP - General Internal Medicine 08/16/22 Alicia Fuentes PharmD [address] [place] [address] Pharmacist Internal Medicine 12/18/22 Alicia Fuentes, Bob [address] [place] [address] Pharmacist Internal Medicine 07/28/24 Mian Gillette Labor Relations ConsultantPayroll Accounting Clerk 12/29/23 [facility] 07/10/24 documented as of this encounter
--- OUTSIDE RECORDS SUMMARY | 2024-09-27 12:09 | XMS_ITS | Encounter Summary ---
Author Organization [employer] Address 75 [facility] 7t [place] [address] Care Team Providers Care Foreign Exchange Trader Name Role Phone Name, Scot SEARS Primary Care Provider [phone] Puia, Alicia PharmD Unavailable [phone] Puia, Alicia PharmD Unavailable Reason for Visit * Reason Onset Date Comments Nurse Triage 01/28/2023 Encounter Details Date Type Department Care Team ([facility] st Contact Info) Description 01/28/2023 Telephone [facility] MEDICINE 230 [place], [place] [phone] Name, MD Scot [address] [place], [place] [phone] Nurse Triage Social History Tobacco Use Types [...] 01/28/2023 11:44 AM EDT Call returned to [facility] for triage. No answer LVM to return call to [facility] triage line [phone]. Protocol Used: No Contact or Duplicate Contact [...] caller accepted this outcome Please contact at [phone] Tiffany documented in this encounter Plan of Treatment Upcoming Encounters Date Type Department Care Team (Late st Contact Info) Description 10/28/2024 10:00 AM EST Medication Management [address] [address] Alicia Fuentes PharmD [address] [place] [address] 11/05/2024 11:00 AM EDT Office Visit [address] [address] Name, [place] [address] documented as of this encounter Goals Goal Patient Goal Type Associated Problems Recent Progress Patient-Stated? Author Smoking cessation General No Alicia Fuentes PharmD documented as of this encounter Visit Diagnoses Not on filedocumented in this encounter Additional Health Concerns Assessment Noted Time PHQ-9 Depression Total Score: 0 08/16/20 9:25 AM EST documented as of this encounter Care Teams Foreign Exchange Trader Relationship Specialty Start Date End Date Name, MD Scot [address] [place] [address] PCP - General Internal Medicine 08/16/22 Alicia Fuentes PharmD [address] [place] [address] Pharmacist Internal Medicine 12/18/22 Alicia Fuentes PharmD [address] [place] [address] Pharmacist Internal Medicine 07/28/24 Mian Gillette Hangar AttendantHelp Desk Consultant 12/29/23 [facility] 07/10/24 documented as of this encounter
--- OUTSIDE RECORDS SUMMARY | 2024-09-27 12:09 | XMS_ITS | Encounter Summary ---
Author Organization [employer] Address [address] [facility] [address] [facility] [address] 7t [place] [address] Care Team Providers Care Package Checker Name Role Phone Name, Scot SEARS Primary Care Provider [phone] Puia, Alicia PharmD Unavailable [phone] Puia, Alicia PharmD Unavailable [phone] Encounter Details Date Type Department Care [...] 10:00 AM EST Medication Management [facility] MEDICINE [address] [place] [address] Alicia Fuentes PharmD [address] [place] [address] 11/05/2024 11:00 AM EDT Office Visit [facility] MEDICINE [address] [place] [address] Name, MD Scot [address] [place] [address] documented as of this encounter Goals Goal Patient Goal Type Associated Problems Recent Progress Patient-Stated? Author Smoking cessation General No Alicia Fuentes PharmD documented as of this encounter Visit Diagnoses Not on filedocumented in this encounter Additional Health Concerns Assessment Noted Time PHQ-9 Depression Total Score: 15 024 10:43 AM EDT documented as of this encounter Care Teams Package Checker Relationship Specialty Start Date End Date NameScot MD [address] [place] [address] PCP - General Internal Medicine 08/16/22 Alicia Fuentes, PharmD [address] [place] [address] Pharmacist Internal Medicine 12/18/22 Alicia Fuentes, Bob [address] [place] [address] Pharmacist Internal Medicine 07/28/24 Mian Gillette Railroad Operating EngineerHr Business Partner Consultant 12/29/23 [facility] 07/10/24 documented as of this encounter
--- OUTSIDE RECORDS SUMMARY | 2024-09-27 12:09 | XMS_ITS | Encounter Summary ---
Author Organization [employer] Address 75 [facility] 7t [place] [address] Care Team Providers Care Electric Utility Lineworker Name Role Phone Name, Scot SEARS Primary Care Provider [phone] Puia, Alicia PharmD Unavailable [phone] Puia, Alicia PharmD Unavailable [phone] Reason for Visit * Reason Onset Date Comments Chart Prep 09/06/2024 Encounter Details Date Type Department Care Team (Late st Contact Info) Description 09/06/2024 Telephone [facility] MEDICINE 230 [place], [place] [phone] Brittany Mcclure [place] Chart Prep Social History [...] 10:00 AM EST Medication Management [facility] MEDICINE [address] [place] [address] Alicia Fuentes, PharmD [address] [place] [address] 11/05/2024 11:00 AM EDT Office Visit [facility] MEDICINE [address] [place] [address] Name, MD Scot [address] [place] [address] documented as of this encounter Goals Goal Patient Goal Type Associated Problems Recent Progress Patient-Stated? Author Smoking cessation General No Alicia Fuentes PharmD documented as of this encounter Visit Diagnoses Not on filedocumented in this encounter Additional Health Concerns Assessment Noted Time PHQ-9 Depression Total Score: 15 024 10:43 AM EDT documented as of this encounter Care Teams Electric Utility Lineworker Relationship Specialty Start Date End Date Name, MD Scot [address] [place] [address] PCP - General Internal Medicine 08/16/22 Alicia Fuentes PharmD [address] [place] [address] Pharmacist Internal Medicine 12/18/22 Alicia Fuentes PharmD [address] [place] [address] Pharmacist Internal Medicine 07/28/24 Mian Gillette Curriculum CounselorProof Sorter 12/29/23 [facility] 07/10/24 documented as of this encounter
--- OUTSIDE RECORDS SUMMARY | 2024-09-27 12:09 | XMS_ITS | Encounter Summary ---
Author Organization [employer] Address 75 [facility] 7t [place] [address] Care Team Providers Care Animal Nutritionist Name Role Phone Name, Scot SEARS Primary Care Provider [phone] Puia, Alicia PharmD Unavailable [phone] Puia, Alicia PharmD Unavailable Reason for Visit * Reason Comments Med Refill Encounter Details Date Type Department Care Team (Late st Contact Info) Description 10/02/2023 Refill [facility] MEDICINE 230 [place], [place] [phone] Name, MD Scot [address] [place], [place] [phone] Tobacco use Social History Tobacco Use Types [...] 10/28/2024 10:00 AM EST Medication Management [address] [address] Alicia Fuentes PharmD [address] [place] [address] 11/05/2024 11:00 AM EDT Office Visit [facility] MEDICINE [address] [place] [address] Scot Mathews MD [address] [place] [address] documented as of this encounter Goals Goal Patient Goal Type Associated Problems Recent Progress Patient-Stated? Author Smoking cessation General No Alicia Fuentes PharmD documented as of this encounter Visit Diagnoses Diagnosis Tobacco use documented in this encounter Additional Health Concerns Assessment Noted Time PHQ-9 Depression Total Score: 9 09/12/19 24 9:23 AM EST documented as of this encounter Care Teams Animal Nutritionist Relationship Specialty Start Date End Date Scot Mathews MD [address] [place], [place] [address]v[place] [address] PCP - General Internal Medicine 08/16/22 [place] [address] Pharmacist Internal Medicine 12/18/22 Alicia Fuentes PharmD [facility] [place] [address] Pharmacist Internal Medicine 07/28/24 Mian Gillette Power Plant Operator ApprenticeShift Lab Technician 12/29/23 [facility] 07/10/24 documented as of this encounter
--- OUTSIDE RECORDS SUMMARY | 2024-09-27 12:09 | XMS_ITS | Encounter Summary ---
Author Organization [employer] Address [address] [facility] [address] 7t [place] [address] Care Team Providers Care Cager Operator Name Role Phone Name, Scot SEARS Primary Care Provider [phone] Puia, Alicia PharmD Unavailable [phone] Puia, Alicia PharmD Unavailable Reason for Visit * Reason Onset Date Comments Appointment Request 03/18/2023 Encounter Details Date Type Department Care Team ([facility] st Contact Info) Description 03/18/2023 Telephone [facility] MEDICINE 230 [place], [place] [phone] Name, MD Scot 230 [place], [place] [phone] Appointment Request Social History Tobacco Use Types [...] recent chest scans. Please contact pt at [phone] (Slovak) documented in this encounter Plan of Treatment Upcoming Encounters Date Type Department Care Team (Late st Contact Info) Description 10/28/2024 10:00 AM EST Medication Management [address] [address] Alicia Fuentes PharmD [address] [place] [address] 11/05/2024 11:00 AM EDT Office Visit [facility] MEDICINE [address] [place] [address] Name, MD Scot [address] [place] [address] documented as of this encounter Goals Goal Patient Goal Type Associated Problems Recent Progress Patient-Stated? Author Smoking cessation General No Alicia Fuentes PharmD documented as of this encounter Visit Diagnoses Not on filedocumented in this encounter Additional Health Concerns Assessment Noted Time PHQ-9 Depression Total Score: 0 08/16/20 22 9:25 AM EST documented as of this encounter Care Teams Cager Operator Relationship Specialty Start Date End Date Name, MD Scot [address] [place] [address] PCP - General Internal Medicine 08/16/22 Alicia Fuentes PharmD [address] [place] [address] Pharmacist Internal Medicine 12/18/22 Aliica Fuentes PharmD [address] [place] [address] Pharmacist Internal Medicine 07/28/24 Mian Gillette Cotton InspectorManager Of Loss Prevention Operations 12/29/23 [facility] 07/10/24 documented as of this encounter
--- OUTSIDE RECORDS SUMMARY | 2024-09-27 12:09 | XMS_ITS | Encounter Summary ---
Author Organization [employer] Address [address] [facility] [address] 7t [place] [address] Care Team Providers Care Final Inspector And Tester Name Role Phone Name, Scot SEARS Primary Care Provider [phone] Puia, Alicia PharmD Unavailable [phone] Puia, Alicia PharmD Unavailable Reason for Visit * Reason Onset Date Comments Durable Medical Equipment 08/22/2023 Encounter Details Date Type Department Care Team (Late st Contact Info) Description 08/22/2023 Telephone [facility] MEDICINE 230 [place], [place] [phone] Name, MD Scot [address] [place], [place] [phone] Durable Medical Equipment Social History Tobacco Use [...] on papers below. Please contact pt @ [phone] * Telephone Encounter - Lorraine Mccray - 08/22/2023 3:22 PM EST Tc from pt requesting for PCP to fill out a [facility] necessity form for a walker due to having hip surgery 08/26. States he dropped it off the administrative assistant front desk. Please contact pt at [phone] (Vietnamese) documented in this encounter Plan of Treatment Upcoming Encounters Date Type Department Care Team (Late st Contact Info) Description 10/28/2024 10:00 AM EST Medication Management [facility] MEDICINE [address] [place] [address] Alicia Fuentes, PharmD [address] [place] [address] 11/05/2024 11:00 AM EDT Office Visit [facility] MEDICINE [address] [place] [address] Name, MD Scot [address] [place] [address] documented as of this encounter Goals Goal Patient Goal Type Associated Problems Recent Progress Patient-Stated? Author Smoking cessation General No Alicia Fuentes, Bob documented as of this encounter Visit Diagnoses Not on filedocumented in this encounter Additional Health Concerns Assessment Noted Time PHQ-9 Depression Total Score: 0 08/16/20 9:25 AM EST documented as of this encounter Care Teams Final Inspector And Tester Relationship Specialty Start Date End Date Name, MD Scot [address] [place] [address] PCP - General Internal Medicine 08/16/22 Alicia Fuentes PharmD [address] [place] [address] Pharmacist Internal Medicine 12/18/22 Alicia Fuentes PharmD [address] [place] [address] Pharmacist Internal Medicine 07/28/24 Mian Gillette Reinforcing Steel WorkerLaser Operator 12/29/23 [facility] 07/10/24 documented as of this encounter
--- OUTSIDE RECORDS SUMMARY | 2024-09-27 12:09 | XMS_ITS | Encounter Summary ---
Author Organization [employer] Address [address] [address] 7t [place] [address] Care Team Providers Care Control Area Operator Name Role Phone Name, Scot SEARS Primary Care Provider [phone] Puia, Alicia PharmD Unavailable [phone] Puia, Alicia PharmD Unavailable [phone] Encounter Details Date Type Department Care Team ([facility] st Contact Info) Description 11/21/2022 Telephone [facility] MEDICINE 230 [place], [place] [phone] Name, MD Scot 230 [place], [place] [phone] Social History Tobacco Use Types Packs/Day Years [...] Description 10/28/2024 10:00 AM EST Medication Management [facility] [place] [address] Alicia Fuentes PharmD [facility] [place] [address] 11/05/2024 11:00 AM EDT Office Visit [facility] [place] [address] Name, MD Scot [facility] [place] [address] documented as of this encounter Visit Diagnoses Not on filedocumented in this encounter Additional Health Concerns Assessment Noted Time PHQ-9 Depression Total Score: 0 08/16/20 9:25 AM EST documented as of this encounter Care Teams Control Area Operator Relationship Specialty Start Date End Date Name, MD Scot [facility] [place] [address] PCP - General Internal Medicine 08/16/22 Alicia Fuentes PharmD [facility] [address] Pharmacist Internal Medicine 12/18/22 Alicia Fuentes PharmD [facility] [place] [address] Pharmacist Internal Medicine 07/28/24 Mian Gillette Labor Relations SupervisorPost Closer 12/29/23 [facility] 07/10/24 documented as of this encounter
--- OUTSIDE RECORDS SUMMARY | 2024-09-27 12:09 | XMS_ITS | Encounter Summary ---
Author Organization [employer] Address [address] [facility] [address] 7t [place] [address] Care Team Providers Care Journalist Name Role Phone Name, Scot SEARS Primary Care Provider [phone] Puia, Alicia PharmD Unavailable Puia, Alicia PharmD Unavailable Encounter Details Date Type Department Care Team ([facility] st Contact Info) Description 07/14/2023 Telephone [facility] MEDICINE 230 [place], [place] [phone] Name, MD Scot 230 [place], [place] [phone] Social History Tobacco Use Types Packs/Day Years [...] EST Medication Management [facility] MEDICINE [address] [place] [address] Alicia Fuentes PharmD [address] [place] [address] 11/05/2024 11:00 AM EDT Office Visit [facility] MEDICINE [address] [place] [address] NameScot MD [address] [place] [address] documented as of this encounter Goals Goal Patient Goal Type Associated Problems Recent Progress Patient-Stated? Author Smoking cessation General No Alicia Fuentes PharmD documented as of this encounter Visit Diagnoses Not on filedocumented in this encounter Additional Health Concerns Assessment Noted Time PHQ-9 Depression Total Score: 0 08/16/20 22 9:25 AM EST documented as of this encounter Care Teams Journalist Relationship Specialty Start Date End Date NameScot MD [address] [place] [address] PCP - General Internal Medicine 08/16/22 Alicia Fuentes PharmD [address] [place] [address] Pharmacist Internal Medicine 12/18/22 Alicia Fuentes, AnkushD [address] [place] [address] [place] [phone] Pharmacist Internal Medicine 07/28/24 Mian Gillette Patient Transportation DriverLicensed Nuclear Control Room Operator 12/29/23 [facility] 07/10/24 documented as of this encounter
--- OUTSIDE RECORDS SUMMARY | 2024-09-27 12:09 | XMS_ITS | Encounter Summary ---
Author Organization [employer] Address 75 [facility] 7t [place] [address] Care Team Providers Care Maltster Name Role Phone Name, Scot SEARS Primary Care Provider [phone] Puia, Alicia PharmD Unavailable [phone] Puia, Alicia PharmD Unavailable [phone] Encounter Details Date Type Department Care Team ([facility] Contact Info) Description 09/02/2024 Orders Only GENERIC [...] with others, in a hotel, in a fdc, living outside on the street, on a [...] 10/28/2024 10:00 AM EST Medication Management [facility] MEDICINE [address] [place] [address] Alicia Fuentes, PharmD [address] [place] [address] 11/05/2024 11:00 AM EDT Office Visit [facility] MEDICINE [address] [place] [address] Name, MD Scot [address] [place] [address] documented as of this encounter Goals Goal [...] 2:15 PM EST 09/02/2024 2:30 PM EST [facility] - 09/06/2024 10:22 AM EST ----- ------- Name: Cameron Calderon ? Age/Sex: 59/M ? : 1965 Unit#: [id number] ?? Attend Dr: Cesar Humphries MD ?Re09/02/24 ?Status: DEP REF ? Location: HO.LNP ?Disch: ? ----- ------- SPEC : [id number] ?RECD: 09/02/24-1429 ? STATUS: ??SOUT ? REQ NUM: [id number] ? BRIA: 09/02/24-8805 ? SUBM DR: Cesar Humphries MD ? ENTERED: ??09/02/24-955 ?SP TYPE: Surgical ? OTHR DR: Scot [...] No hemorrhagic or necrotic foci are identified. ??Slab Off Mill Tender sections are submitted in cassettes [id number]. ??CEDS This case was reviewed intradepartmentally. Copies To: ?? Cesar Humphries MD ?? [facility] General Surgeons ?? [address] [facility] ?? [place] [address] ?? [phone] ?? Name,Scot SEARS ?? [address] [facility] ?? [place] [address] ?? [phone] ----- ------- Signed (signature on file) Reinier Farmer MD 09/06/24 1022 ? ----- ------- ? END OF REPORT ? us Generic External Data Provider LAB CYTOLOGY JANEEN [place] Final Result [facility] [address] [place] [address] [phone] documented in this encounter Visit Diagnoses Not on filedocumented in this encounter Additional Health Concerns Assessment Noted Time PHQ-9 Depression Total Score: 15 024 10:43 AM EDT documented as of this encounter Care Teams Maltster Relationship Specialty Start Date End Date Name, MD Scot [address] [place] [address] PCP - General Internal Medicine 08/16/22 Alicia Fuentes, Bob [address] [place] [address] Pharmacist Internal Medicine 12/18/22 Alicia Fuentes PharmD 230 [place] [address] Pharmacist Internal Medicine 07/28/24 Mian Gillette Pointer Machine OperatorSow Manager 12/29/23 [facility] 07/10/24 documented as of this encounter
--- OUTSIDE RECORDS SUMMARY | 2024-09-27 12:09 | XMS_ITS | Encounter Summary ---
Author Organization [employer] Address 75 [facility] 7t [place] [address] Care Team Providers Care Sack Keeper Name Role Phone Name, Scot SEARS Primary Care Provider [phone] Puia, Alicia PharmD Unavailable [phone] Puia, Alicia PharmD Unavailable Reason for Visit * Reason Onset Date Comments PT1 03/02/2024 Encounter Details Date Type Department Care Team (Late st Contact Info) Description 03/02/2024 Telephone [facility] MEDICINE [address] [place] [address] Name, MD Scot [address] [place], [place] [phone] PT1 Social History Tobacco Use Types Packs/Day [...] with others, in a hotel, in a half-way, living outside on the street, on a [...] Y/N: Yes Provider name or facility name: [facility] Facility Address: [address] [place] [address] [address] [place], [place] [address] [place] [address] Escort needed: Y/N: No Do you have a wheelchair: Y/N: No If yes- Manual or electric: no Visits: 3 a month documented in this encounter Plan of Treatment Upcoming Encounters Date Type Department Care Team ([facility] st Contact Info) Description 10/28/2024 10:00 AM EST Medication Management [facility] MEDICINE [address] [place] [address] Alicia Fuentes, Bob [address] [place] [address] 11/05/2024 11:00 AM EDT Office Visit [facility] [place] [address] Name, MD Scot [facility] [place] [address] documented as of this encounter Goals Goal Patient Goal Type Associated Problems Recent Progress Patient-Stated? Author Smoking cessation General No Alicia Feuntes, PharmD documented as of this encounter Visit Diagnoses Not on filedocumented in this encounter Additional Health Concerns Assessment Noted Time PHQ-9 Depression Total Score: 9 10/24/19 24 10:30 AM EST documented as of this encounter Care Teams Sack Keeper Relationship Specialty Start Date End Date Name, MD Scot [facility] [place] [address] PCP - General Internal Medicine 08/16/22 Alicia Fuentes, PharmD [facility] [place] [address] Pharmacist Internal Medicine 12/18/22 Alicia Fuentes, [place] [address] Pharmacist Internal Medicine 07/28/24 Mian Gillette Prime BrokerCat Scanner Operator 12/29/23 [facility] 07/10/24 documented as of this encounter
== END 2024-09-27 11:17 | disposition home or self-care (01) ==
PROVIDERS: PCP Internal Medicine Geriatric Medicine; Visit Provider Surgery
DX: D17.21 Benign lipomatous neoplasm of skin and subcutaneous tissue of right arm (principal)
CPT/HCPCS: 99024

== ENCOUNTER → 2024-09-27 11:00 | Outpatient (BNVA) | payer MEDICAID, SELFPAY | PROVIDERS: PCP Internal Medicine Geriatric Medicine; Visit Provider Surgery | DX: Z09 Encounter for follow-up examination after completed treatment for conditions other than malignant neoplasm (principal); Z87.2 Personal history of diseases of the skin and subcutaneous tissue | CPT/HCPCS: 99212 ==

== ENCOUNTER 2024-11-05 11:33 | Outpatient (REF) | payer MEDICAID, SELFPAY ==
--- OUTSIDE RECORDS SUMMARY | 2024-11-05 13:23 | XMS_ITS | Encounter Summary ---
Author Organization [employer] Address 75 [facility] 7t [place] [address] Care Team Providers Care Routing Clerk Name Role Phone Name, Scot SEARS Primary Care Provider [phone] Puia, Alicia PharmD Unavailable Puia, Alicia PharmD Unavailable Reason for Visit * Reason Comments Med Refill Encounter Details Date Type Department Care Team (Late st Contact Info) Description 12/12/2023 Refill [facility] [address] [place], [place] [phone] Name, MD Scot [address] [place] [address] Tobacco use Social History Tobacco Use Types [...] Care Team (Late st Contact Info) Description 11/24/2024 10:00 AM EDT Medication Management [facility] MEDICINE [address] [place] [address] Alicia Fuentes PharmD [address] [place] [address] documented as of this encounter Goals Goal Patient Goal Type Associated Problems Recent Progress Patient-Stated? Author Smoking cessation General No Alicia Fuentes PharmD documented as of this encounter Visit Diagnoses Diagnosis Tobacco use documented in this encounter Additional Health Concerns Assessment Noted Time PHQ-9 Depression Total Score: 9 10/24/19 24 10:30 AM EST documented as of this encounter Care Teams Routing Clerk Relationship Specialty Start Date End Date Name, MD Scot [address] [place] [address] PCP - General Internal Medicine 08/16/22 Alicia Fuentes PharmD [address] [place] [address] Pharmacist Internal Medicine 12/18/22 Alicia Fuentes, Bob [address] [place] [address] Pharmacist Internal Medicine 07/28/24 Mian Gillette Clay CasterMotor Vehicle Representative 12/29/23 [facility] 07/10/24 documented as of this encounter
--- OUTSIDE RECORDS SUMMARY | 2024-11-05 13:23 | XMS_ITS | Encounter Summary ---
Author Organization [employer] Address [address] [facility] [address] 7t [place] [address] Care Team Providers Care Slots Manager Name Role Phone Name, Scot SEARS Primary Care Provider [phone] Puia, Alicia PharmD Unavailable [phone] Puia, Alicia PharmD Unavailable [phone] Reason for Visit * Reason Onset Date Comments Referral 10/09/2022 Encounter Details Date Type Department Care Team ([facility] st Contact Info) Description 10/09/2022 Telephone [facility] MEDICINE [address] [place], [place] [phone] Name, MD Scot 230 [place], [place] [phone] Referral Social History Tobacco Use Types Packs/Day [...] a referral to be seen at the [facility] Please contact mom at [phone] documented in this encounter Plan of Treatment Upcoming Encounters Date Type Department Care Team (Late st Contact Info) Description 11/24/2024 10:00 AM EDT Medication Management [facility] MEDICINE [address] [place] [address] Alicia Fuentes PharmD 230 [place] [address] documented as of this encounter Visit Diagnoses Not on filedocumented in this encounter Additional Health Concerns Assessment Noted Time PHQ-9 Depression Total Score: 0 08/16/20 9:25 AM EST documented as of this encounter Care Teams Slots Manager Relationship Specialty Start Date End Date Name, MD Scot [address] [place] [address] PCP - General Internal Medicine 08/16/22 Alicia Fuentes PharmD 230 [place] [address] Pharmacist Internal Medicine 12/18/22 Alicia Fuentes PharmD [address] [facility] [place] [address] Pharmacist Internal Medicine 07/28/24 Mian Gillette [place] Roofer HelperUniversity Services Program Associate 12/29/23 [facility] 07/10/24 documented as of this encounter
--- OUTSIDE RECORDS SUMMARY | 2024-11-05 13:23 | XMS_ITS | Encounter Summary ---
Author Organization [employer] Address 75 [facility] 7t [place] [address] Care Team Providers Care Product Tester Fiberglass Name Role Phone Name, Scot SEARS Primary Care Provider [phone] Puia, Alicia PharmD Unavailable Puia, Alicia PharmD Unavailable [phone] Reason for Visit * Reason Comments Med Refill Encounter Details Date Type Department Care Team (Late st Contact Info) Description 12/12/2023 Refill [facility] MEDICINE [address] [place], [place] [phone] Radha Foster DO 230 [place], [place] [phone] Social History Tobacco Use Types Packs/Day Years [...] with others, in a hotel, in a long-term, living outside on the street, on a [...] Description 11/24/2024 10:00 AM EDT Medication Management [facility] MEDICINE [address] [place] [address] Alicia Fuentes PharmD 230 [place] [address] documented as of this encounter Goals Goal Patient Goal Type Associated Problems Recent Progress Patient-Stated? Author Smoking cessation General No Alicia Fuentes PharmFarooq documented as of this encounter Visit Diagnoses Not on filedocumented in this encounter Additional Health Concerns Assessment Noted Time PHQ-9 Depression Total Score: 9 10/24/19 24 10:30 AM EST documented as of this encounter Care Teams Product Tester Fiberglass Relationship Specialty Start Date End Date Name, MD Scot [address] [place] [address] PCP - General Internal Medicine 08/16/22 Alicia Fuentes PharmD [address] [place] [address] Pharmacist Internal Medicine 12/18/22 Alicia Fuentes, Bob [address] [place] [address] Pharmacist Internal Medicine 07/28/24 Mian Gillette Advanced Practice RnDoctor Of Nurse Anesthesia 12/29/23 [facility] 07/10/24 documented as of this encounter
--- OUTSIDE RECORDS SUMMARY | 2024-11-05 13:23 | XMS_ITS | Encounter Summary ---
Author Organization [employer] Address [address] [facility] [address] 7[address] [place] [address] Care Team Providers Care Biophysics Professor Name Role Phone Name, Scot SEARS Primary Care Provider [phone] Puia, Alicia PharmD Unavailable Puia, Alicia PharmD Unavailable Encounter Details Date Type Department Care Team ([facility] st Contact Info) Description 11/21/2022 Telephone [facility] MEDICINE 230 [place], [place] [phone] Name, MD Scot 230 [place], [place] [phone] Social History Tobacco Use Types Packs/Day Years [...] Description 11/24/2024 10:00 AM EDT Medication Management [facility] MEDICINE 230 [place] [address] Alicia Fuentes PharmD 230 [place] [address] documented as of this encounter Visit Diagnoses Not on filedocumented in this encounter Additional Health Concerns Assessment Noted Time PHQ-9 Depression Total Score: 0 08/16/20 9:25 AM EST documented as of this encounter Care Teams Biophysics Professor Relationship Specialty Start Date End Date Name, MD Scot [address] [place] [address] PCP - General Internal Medicine 08/16/22 Alicia Fuentes PharmD 230 [place] [address] Pharmacist Internal Medicine 12/18/22 [place] [address] Pharmacist Internal Medicine 07/28/24 Mian Gillette Freight TruckerManager Biologics 12/29/23 [facility] 07/10/24 documented as of this encounter
--- OUTSIDE RECORDS SUMMARY | 2024-11-05 13:23 | XMS_ITS | Encounter Summary ---
Author Organization [employer] Address 75 [facility] 7t [place] [address] Care Team Providers Care Beveling And Edging Machine Operator Name Role Phone Name, Scot SEARS Primary Care Provider [phone] Puia, Alicia PharmD Unavailable [phone] Puia, Alicia PharmD Unavailable Reason for Visit * Reason Onset Date Comments Orders Request 12/12/2023 Encounter Details Date Type Department Care Team ([facility] st Contact Info) Description 12/12/2023 Telephone [facility] MEDICINE 230 [place] [address] Name, MD Scot 230 [place], [place] [phone] Orders Request Social History Tobacco Use Types [...] Description 11/24/2024 10:00 AM EDT Medication Management [facility] MEDICINE 230 [place], [place] [phone] Alicia Fuentes, PharmD 230 [place] [address] documented as of this encounter Goals Goal Patient Goal Type Associated Problems Recent Progress Patient-Stated? Author Smoking cessation General No Alicia Fuentes, Bob documented as of this encounter Visit Diagnoses Not on filedocumented in this encounter Additional Health Concerns Assessment Noted Time PHQ-9 Depression Total Score: 9 10/24/19 24 10:30 AM EST documented as of this encounter Care Teams Beveling And Edging Machine Operator Relationship Specialty Start Date End Date Name, MD Scot 230 [place] [address] PCP - General Internal Medicine 08/16/22 Alicia Fuentes, Bob [address] [place] [address] Pharmacist Internal Medicine 12/18/22 Alicia Fuentes PharmD [address] [place] [address] Pharmacist Internal Medicine 07/28/24 Mian Gillette Medical TranslatorSpike Driver 12/29/23 [facility] 07/10/24 documented as of this encounter
--- OUTSIDE RECORDS SUMMARY | 2024-11-05 13:23 | XMS_ITS | Encounter Summary ---
Author Organization [employer] Address 75 [facility] 7t [place] [address] Care Team Providers Care Chili Maker Name Role Phone Name, Scot SEARS Primary Care Provider [phone] Puia, Alicia PharmD Unavailable [phone] Puia, Alicia PharmD Unavailable [phone] Reason for Visit * Reason Onset Date Comments PT1 03/02/2024 Encounter Details Date Type Department Care Team (Late st Contact Info) Description 03/02/2024 Telephone [facility] MEDICINE [address] [place] [address] Name, MD Scot 230 [place], [place] [phone] PT1 Social History Tobacco Use Types Packs/Day [...] Y/N: Yes Provider name or facility name: [facility] Facility Address: [address] [place] [address] [address] [place], [place] [phone] [place] [address] Escort needed: Y/N: No Do you have a wheelchair: Y/N: No If yes- Manual or electric: no Visits: 3 a month documented in this encounter Plan of Treatment Upcoming Encounters Date Type Department Care Team ([facility] st Contact Info) Description 11/24/2024 10:00 AM EDT Medication Management [facility] MEDICINE [address] [place] [address] Alicia Fuentes, PharmD 230 [place] [address] documented as of this encounter Goals Goal Patient Goal Type Associated Problems Recent Progress Patient-Stated? Author Smoking cessation General No Alicia Fuentes, Bob documented as of this encounter Visit Diagnoses Not on filedocumented in this encounter Additional Health Concerns Assessment Noted Time PHQ-9 Depression Total Score: 9 10/24/19 24 10:30 AM EST documented as of this encounter Care Teams Chili Maker Relationship Specialty Start Date End Date Name, MD Scot [address] [place] [address] PCP - General Internal Medicine 08/16/22 Alicia Fuentes PharmD [address] [place] [address] Pharmacist Internal Medicine 12/18/22 Alicia Fuentes PharmD [address] [place] [address] Pharmacist Internal Medicine 07/28/24 Mian Gillette Candle WrapperActivities Coordinator 12/29/23 [facility] 07/10/24 documented as of this encounter
--- OUTSIDE RECORDS SUMMARY | 2024-11-05 13:23 | XMS_ITS | Encounter Summary ---
Author Organization [employer] Address [address] [facility] [address] 7t [place] [address] Care Team Providers Care Derrick Operator Name Role Phone Name, Scot SEARS Primary Care Provider [phone] Puia, Alicia PharmD Unavailable Puia, Alicia PharmD Unavailable Reason for Visit * Reason Onset Date Comments Med Refill 07/14/2023 Encounter Details Date Type Department Care Team ([facility] st Contact Info) Description 07/14/[address] [facility] MEDICINE 230 [place], [place] [phone] Name, MD Scot [address] [place], [place] [phone] Med Refill Social History Tobacco Use Types Packs/Day Years Used Date Smoking Tobacco: Former Cigarettes 0.3 0.5 Smokeless Tobacco: Never Alcohol Use Standard Drinks/Week Comments Never 0 (1 standard drink = 0.6 oz pur e alcohol) Depression Answer Date Recorded Patient Health Questionnaire-9 Score 0 08/16/2022 Housing Stability Answer Date Recorded What is your housing situation today? I have gisella jerry 06/09/[address] you li [...] 11:00 AM EST Medication was sent to [facility] Pharm[facility] on 02/14/23 with 11 refills. * Telephone Encounter - Luis Faulkner - 07/14/2023 10:51 AM EST Tc from pt requesting a refill for Umeclidinium [place] (Incruse Ellipta) 62.5 MCG/ACT aerosol powder. documented in this encounter Plan of Treatment Upcoming Encounters Date Type Department Care Team (Late st Contact Info) Description 11/24/2024 10:00 AM EDT Medication Management [facility] MEDICINE 230 [place] [address] Alicia Fuentes PharmD [address] [place] [address] documented as of this encounter Goals Goal Patient Goal Type Associated Problems Recent Progress Patient-Stated? Author Smoking cessation General No Alicia Fuentes, PharmD documented as of this encounter Visit Diagnoses Not on filedocumented in this encounter Additional Health Concerns Assessment Noted Time PHQ-9 Depression Total Score: 0 08/16/20 22 9:25 AM EST documented as of this encounter Care Teams Derrick Operator Relationship Specialty Start Date End Date Name, MD Scot [address] [place] [address] PCP - General Internal Medicine 08/16/22 Alicia Fuentes PharmD [address] [place] [address] Pharmacist Internal Medicine 12/18/22 Alicia Fuentes PharmD [address] [place] [address] Pharmacist Internal Medicine 07/28/24 Mian Gillette Production CookLog Cutter 12/29/23 [facility] 07/10/24 documented as of this encounter
--- OUTSIDE RECORDS SUMMARY | 2024-11-05 13:23 | XMS_ITS | Encounter Summary ---
Author Organization [employer] Address [address] [facility] [address] 7t [place] [address] Care Team Providers Care Frame Hand Name Role Phone Name, Scot SEARS Primary Care Provider [phone] Puia, Alicia PharmD Unavailable Puia, Alicia PharmD Unavailable [phone] Encounter Details Date Type Department Care Team ([facility] st Contact Info) Description 07/14/2023 Telephone [facility] MEDICINE 230 [place], [place] [phone] Name, MD Scot 230 [place], [place] [phone] Social History Tobacco Use Types Packs/Day Years [...] Description 11/24/2024 10:00 AM EDT Medication Management [facility] MEDICINE [address] [place] [address] Alicia Fuentes PharmD [address] [place] [address] documented as of this encounter Goals Goal Patient Goal Type Associated Problems Recent Progress Patient-Stated? Author Smoking cessation General No Alicia Fuentes PharmD documented as of this encounter Visit Diagnoses Not on filedocumented in this encounter Additional Health Concerns Assessment Noted Time PHQ-9 Depression Total Score: 0 08/16/20 22 9:25 AM EST documented as of this encounter Care Teams Frame Hand Relationship Specialty Start Date End Date Name, MD Scot [address] [place] [address] PCP - General Internal Medicine 08/16/22 Alicia Fuentes PharmD [address] [place] [address] Pharmacist Internal Medicine 12/18/22 Alicia Fuentes PharmD [address] [place] [address] Pharmacist Internal Medicine 07/28/24 Mian Gillette Policy InternTufting Machine Operator Single Needle 12/29/23 [facility] 07/10/24 documented as of this encounter
--- OUTSIDE RECORDS SUMMARY | 2024-11-05 13:23 | XMS_ITS | Encounter Summary ---
Author Organization [employer] Address [address] [facility] [address] 7[address] [place] [address] Care Team Providers Care Staff Air Tactical Officer Name Role Phone Name, Scot SEARS Primary Care Provider [phone] Puia, Alicia PharmD Unavailable Puia, Alicia PharmD Unavailable Reason for Visit * Reason Onset Date Comments Medication Question 11/21/2022 Encounter Details Date Type Department Care Team ([facility] st Contact Info) Description 11/21/2022 Telephone [facility] MEDICINE 230 [place], [place] [phone] Name, MD Scot [address] [place], [place] [phone] Medication Question Social History Tobacco Use Types [...] on last visit Please contact pt at [phone] documented in this encounter Plan of Treatment Upcoming Encounters Date Type Department Care Team (Late st Contact Info) Description 11/24/2024 10:00 AM EDT Medication Management [facility] MEDICINE 230 [place] [address] Alicia Fuentes PharmD [address] [place] [address] documented as of this encounter Visit Diagnoses Not on filedocumented in this encounter Additional Health Concerns Assessment Noted Time PHQ-9 Depression Total Score: 0 08/16/20 9:25 AM EST documented as of this encounter Care Teams Staff Air Tactical Officer Relationship Specialty Start Date End Date Name, MD Scot [address] [place] [address] PCP - General Internal Medicine 08/16/22 Alicia Fuentes PharmD [address] [place] [address] Pharmacist Internal Medicine 12/18/22 Alicia Fuentes PharmD [address] [place] [address] Pharmacist Internal Medicine 07/28/24 Mian Gillette EngineerManager Mountain 12/29/23 [facility] 07/10/24 documented as of this encounter
--- OUTSIDE RECORDS SUMMARY | 2024-11-05 13:24 | XMS_ITS | Encounter Summary ---
Author Organization [employer] Address [address] [facility] 7t [place] [address] Care Team Providers Care Check And Transfer Beader Name Role Phone Name, Scot SEARS Primary Care Provider [phone] Puia, Alicia PharmD Unavailable [phone] Puia, Alicia PharmD Unavailable [phone] Reason for Visit * Reason Comments Follow-up Encounter Details Date Type Department Care Team (Late st Contact Info) Description 11/05/2024 11:00 AM EDT Office Visit [facility] MED[facility]INE [address] [place], [place] [phone] Name, MD Scot [address] [place], [place] [phone] Type 2 diabetes mellitus with hypoglycemia without coma, unspecified whether ferry terminal agent insulin use (CMS/[facility]) (Primary Dx); Urinary frequency Social History Tobacco Use Types Packs/Day Years [...] Sign Reading Time Taken Comments Blood Pressure 117/69 11/05/2024 11:01 AM EDT Pulse 108 11/05/2024 11:01 AM EDT Temperature 35.4 ??C (95.7 ??F) 11/05/2024 11:01 AM E DT Respiratory Rate 24 11/05/2024 11:01 AM EDT Oxygen Saturation - - Inhaled Oxygen Concentration - - Weight 108 kg (239 lb) 11/05/2024 11:01 AM EDT Height - - Body Mass Index 36.34 09/10/2024 11:33 AM EST documented in this encounter Progress Notes * Scot Mathesw MD - 11/05/2024 11:00 AM EDT Subjective Patient ID: Cameron Calderon is a 59 y.o. male who presents for Follow-up. Cameron comes for a follow-up visit. He is not having any episodes of hypoglycemia since he stopped using insulin. Blood sugars well-controlled on his current doses of Trulicity and Jardiance. BP has also normalized. He has CGM in place and 7 day average is 107, he is tolerating Trulicity well. He ishappy with the weight loss he has since he started Trulicity. Today he has noted frequent urination. He thinks he urinates more often after using Jardiance. He denies any urinary incontinence, no dysuria, and he denies nocturia more than 1 time per night. He refuses a genial and prostate exam today. He agreed for evaluation with PSA and urinalysis. Review of Systems Constitutional: Negative for chills, fatigue and fever. HENT: Negative for sore throat. Respiratory: Negative for cough, chest tightness and shortness of breath. Cardiovascular: Negative for chest pain, palpitations and leg swelling. Gastrointestinal: Negative for abdominal pain and blood in stool. Visit Vitals BP 117/69 Pulse 108 Temp 95.7 ??F (35.4 ??C) (Temporal) Resp 24 Wt 239 lb (108 kg) BMI 36.34 kg/m?? Smoking Status Some Days BSA 2.28 m?? Objective Physical Exam Constitutional: Appearance: Normal appearance. Cardiovascular: Rate and Rhythm: Normal rate and regular rhythm. Heart sounds: No murmur heard. Pulmonary: Effort: Pulmonary effort is normal. No respiratory distress. Breath sounds: No wheezing, rhonchi or rales. Abdominal: Palpations: Abdomen is soft. Tenderness: There is no abdominal tenderness. Musculoskeletal: Right lower leg: No edema. Left lower leg: No edema. Neurological: Mental Status: He is alert. Lab Results Component Value Date HGBA1C 7.8 (A) 09/10/2024 HGBA1C 13.9 (A) 07/21/2024 HGBA1C 6.5 (H) 04/30/2024 HGBA1C 5.9 (H) 11/21/2022 Lab Results Component Value Date GLUCOSE 93 09/24/2024 NA 141 09/24/2024 K 4.5 09/24/2024 CO2 26 09/24/2024 CL 105 09/24/2024 BUN 17 (H) 09/24/2024 CREATININE 0.93 09/24/2024 Lab Results Component Value Date WBC 9.0 07/06/2024 HGB 13.1 (L) 07/06/2024 HCT 38.1 (L) 07/06/2024 MCV 83.2 07/06/2024 PLT 305 07/06/2024 Assessment/Plan Diagnoses and all orders for this visit: Type 2 diabetes mellitus with hypoglycemia without coma, unspecified whether ferry terminal agent insulin use ([facility]) Comments: Well controlled now, based on his CGM his hemoglobin A1c should be below 7 in the coming months. Noepisodes of hypoglycemia since coming off insulin. Continue current meds, avoid sweets and soda, heis reminded to go for fasting blood work ordered at his previous visit. Keep upcoming appointment with CDTM. Orders: - POCT glucose manually resulted Urinary frequency Comments: I suspect BPH. Patient refused rectal exam today. I recommended evaluation with urinalysis and PSA.Further recommendation based on results. Orders: - Urinalysis, Complete, with Reflex to Culture; Future - PSA,Total; Future documented in this encounter Plan of Treatment Upcoming Encounters Date Type Department Care Team (Late st Contact Info) Description 11/24/2024 10:00 AM EDT Medication Management [facility] MEDICINE [address] [place] [address] Alicia Fuentes, PharmD [address] [place] [address] Scheduled Orders Name Type Priority Associated Diagnoses Orde r Schedule Urinalysis, Complete, with Reflex to Culture Lab Routine Urinary frequency Expected: 11/05/2024 (Approximate), Expires: 11/05/2025 PSA,Total Lab Routine Urinary frequency Expected: 11/05/2024, Expires: 11/05/2025 documented as of this encounter Goals Goal Patient Goal Type Associated Problems Recent Progress Patient-Stated? Author Smoking cessation General No Alicia Fuentes, PharmD documented as of this encounter Procedures Procedure Name Priority Date/Time Associated Diagnosis Comments POCT GLUCOSE Routine 11/05/2024 11:03 AM EDT Type 2 diabetes mellitus with hypoglycemia without coma, unspecified whether correction insulin use ([facility]) documented in this encounter Results * POCT glucose manually resulted (11/05/2024 11:03 AM EDT) [facility] Glucose Blood, POC 104 60 - 200 mg/dL QC Media Lot # [id number] Lot# Expiration Date [id number] Blood Capillary blood specimen / Unknown 11/05/2024 11:03 AM EDT Scot Mathews MD POINT OF CARE TEST ENTER/EDIT OR DERABLES Final Result documented in this encounter Visit Diagnoses Diagnosis Type 2 diabetes mellitus with hypoglycemia without coma, unspecified whether correction insulin use ([facility])- Primary Urinary frequency documented in this encounter Additional Health Concerns Assessment Noted Time PHQ-9 Depression Total Score: 15 024 10:43 AM EDT documented as of this encounter Care Teams Check And Transfer Beader Relationship Specialty Start Date End Date Name, MD Scot [address] [place] [address] PCP - General Internal Medicine 08/16/22 Alicia Fuentes, Bob [address] [place] [address] Pharmacist Internal Medicine 12/18/22 Alicia Fuentes PharmD [address] [place] [address] Pharmacist Internal Medicine 07/28/24 Mian Gillette Game Show HostPublications Inspector 12/29/23 [facility] 07/10/24 documented as of this encounter
--- OUTSIDE RECORDS SUMMARY | 2024-11-05 13:24 | XMS_ITS | Encounter Summary ---
Author Organization [employer] Address [address] [facility] [address] 7[address] [place] [address] Care Team Providers Care Regulatory Administrator Name Role Phone Name, Scot SEARS Primary Care Provider [phone] Puia, Alicia PharmD Unavailable [phone] Puia, Alicia PharmD Unavailable [phone] Reason for Visit * Reason Onset Date Comments Durable Medical Equipment 08/22/2023 Encounter Details Date Type Department Care Team (Late st Contact Info) Description 08/22/2023 Telephone [facility] MEDICINE [address] [place], [place] [phone] Name, MD Scot [address] [place], [place] [phone] Durable Medical Equipment Social History Tobacco Use [...] Miscellaneous Notes * Telephone Encounter - Richard Hayse - 08/27/2023 11:45 AM EST TC from pt requesting status on papers below. Please contact pt @ [phone] * Telephone Encounter - Lorraine Mccray - 08/22/2023 3:22 PM EST Tc from pt requesting for PCP to fill out a [facility] necessity form for a walker due to having hip surgery 08/26. States he dropped it off the front man. Please contact pt at [phone] (Greenlandic) documented in this encounter Plan of Treatment Upcoming Encounters Date Type Department Care Team (Late st Contact Info) Description 11/24/2024 10:00 AM EDT Medication Management [facility] MED[facility]INE [address] [place], [place] [phone] Alicia Fuentes, AnkushD [address] [place], [place] [phone] documented as of this encounter Goals Goal Patient Goal Type Associated Problems Recent Progress Patient-Stated? Author Smoking cessation General No Alicia Fuentes PharmD documented as of this encounter Visit Diagnoses Not on filedocumented in this encounter Additional Health Concerns Assessment Noted Time PHQ-9 Depression Total Score: 0 08/16/20 22 9:25 AM EST documented as of this encounter Care Teams Regulatory Administrator Relationship Specialty Start Date End Date Name, MD Scot [address] [place] [address] PCP - General Internal Medicine 08/16/22 Alicia Fuentes PharmD [address] [place] [address] Pharmacist Internal Medicine 12/18/22 Alicia Fuentes PharmD [address] [place] [address] Pharmacist Internal Medicine 07/28/24 Mian Gillette Door OpenerBiology Faculty Member 12/29/23 [facility] 07/10/24 documented as of this encounter
--- OUTSIDE RECORDS SUMMARY | 2024-11-05 13:24 | XMS_ITS | Encounter Summary ---
Author Organization [employer] Address [address] [facility] 7t [place] [address] Care Team Providers Care Lumber Piler Name Role Phone Name, Scot SEARS Primary Care Provider [phone] Puia, Alicia PharmD Unavailable [phone] Puia, Alicia PharmD Unavailable [phone] Reason for Visit * Reason Comments Med Refill Encounter Details Date Type Department Care Team (Late st Contact Info) Description 10/18/2024 Refill [facility] MED[facility]INE [address] [place], [place] [phone] Puia, Alicia, PharmD [address] [place], [place] [phone] New onset type 2 diabetes mellitus (CMS/HCC) [...] encounter Miscellaneous Notes * Telephone Encounter - Alicia Fuentes PharmD - 10/22/2024 3:45 PM EST Denied. Requested in error per [facility] pharmacy team. Patient has upcoming visit with me next week documented in this encounter Plan of Treatment Upcoming Encounters Date Type Department Care Team (Late st Contact Info) Description 11/24/2024 10:00 AM EDT Medication Management [facility] [address] [place] [address] Alicia Fuentes PharmD [address] [place] [address] documented as of this encounter Goals Goal Patient Goal Type Associated Problems Recent Progress Patient-Stated? Author Smoking cessation General No Alicia Fuentes PharmD documented as of this encounter Visit Diagnoses Diagnosis New onset type 2 diabetes mellitus (CMS/HCC) documented in this encounter Additional Health Concerns Assessment Noted Time PHQ-9 Depression Total Score: 15 09/06/2 024 10:43 AM EDT documented as of this encounter Care Teams Lumber Piler Relationship Specialty Start Date End Date Name, MD Scot [address] [place] [address] PCP - General Internal Medicine 08/16/22 Alicia Fuentes PharmD [address] [place] [address] Pharmacist Internal Medicine 12/18/22 Alicia Fuentes PharmD [address] [facility] [place] [address] Pharmacist Internal Medicine 07/28/24 Mian Gillette Veneer Slicing Machine OperatorCommunity Nurse 12/29/23 [facility] 07/10/24 documented as of this encounter
--- OUTSIDE RECORDS SUMMARY | 2024-11-05 13:24 | XMS_ITS | Encounter Summary ---
Author Organization [employer] Address [address] [facility] [address] 7t [place] [address] Care Team Providers Care Tax Manager Public Name Role Phone Name, Scot SEARS Primary Care Provider [phone] Puia, Alicia PharmD Unavailable [phone] Puia, Alicia PharmD Unavailable Reason for Visit * Reason Onset Date Comments Appointment Request 03/18/2023 Encounter Details Date Type Department Care Team ([facility] st Contact Info) Description 03/18/[address] [facility] MEDICINE [address] [place], [place] [phone] Name, MD Scot [address] [place], [place] [phone] Appointment Request Social History Tobacco Use Types [...] Miscellaneous Notes * Telephone Encounter - Lorraine Mahendra - 03/18/2023 10:04 AM EDT Tc from pt requesting a f/u appointment on recent chest scans. Please contact pt at [phone] (Estonian) documented in this encounter Plan of Treatment Upcoming Encounters Date Type Department Care Team (Late st Contact Info) Description 11/24/2024 10:00 AM EDT Medication Management [facility] MEDICINE [address] [place] [address] Alicia Fuentes PharmD [address] [place] [address] documented as of this encounter Goals Goal Patient Goal Type Associated Problems Recent Progress Patient-Stated? Author Smoking cessation General No Alicia Fuentes, PharmD documented as of this encounter Visit Diagnoses Not on filedocumented in this encounter Additional Health Concerns Assessment Noted Time PHQ-9 Depression Total Score: 0 08/16/20 22 9:25 AM EST documented as of this encounter Care Teams Tax Manager Public Relationship Specialty Start Date End Date Name, MD Scot [address] [place] [address] PCP - General Internal Medicine 08/16/22 Alicia Fuentes PharmD [address] [place] [phone] Pharmacist Internal Medicine 12/18/22 Alicia Fuentes PharmD [address] [place] [address] Pharmacist Internal Medicine 07/28/24 Mian Gillette Griddle CookWafer Fab Operator 12/29/23 [facility] 07/10/24 documented as of this encounter
--- OUTSIDE RECORDS SUMMARY | 2024-11-05 13:24 | XMS_ITS | Encounter Summary ---
Author Organization [employer] Address [address] [facility] 7t [place] [address] Care Team Providers Care Timber Management Specialist Name Role Phone Name, Scot SEARS Primary Care Provider Puia, Alicia PharmD Unavailable [phone] Puia, Alicia PharmD Unavailable [phone] Reason for Visit * Reason Onset Date Comments Prior Authorization 10/28/2024 Neel 3 CGM Encounter Details Date Type Department Care Team (Late st Contact Info) Description 10/28/2024 Telephone [facility] MEDICINE [address] [place] [address] Puia, Alicia, PharmD [address] [place] [address] Prior Authorization (-[employer] 3 CGM) Social History Tobacco Use Types Packs/Day Years [...] the past 12 months, has t he [employer], gas, oil or water [employer] threatened to shut off services in your [...] Telephone Encounter - Alicia Fuentes PharmD - 10/28/2024 5:46 PM EST Incoming call from pharmacy - Neel 3 [facility] requires PA. [facility] prepared & faxed PA to plan today; awaiting response at this time & patient is aware. PA packet sent to HIM for upload into EHR. FYI to PA team - this request is all set. documented in this encounter Plan of Treatment Upcoming Encounters Date Type Department Care Team (Late st Contact Info) Description 11/24/2024 10:00 AM EDT Medication Management [facility] MEDICINE [address] [place], [place] [phone] Alicia Fuentes PharmD [address] [place], [place] [phone] documented as of this encounter Goals Goal Patient Goal Type Associated Problems Recent Progress Patient-Stated? Author Smoking cessation General No Puia, Alicia, PharmD documented as of this encounter Visit Diagnoses Not on filedocumented in this encounter Additional Health Concerns Assessment Noted Time PHQ-9 Depression Total Score: 15 024 10:43 AM EDT documented as of this encounter Care Teams Timber Management Specialist Relationship Specialty Start Date End Date Name, MD Scot [address] [place] [address] PCP - General Internal Medicine 08/16/22 Alicia Fuentes PharmD [address] [place] [address] Pharmacist Internal Medicine 12/18/22 Alicia Fuentes PharmD [address] [place] [address] Pharmacist Internal Medicine 07/28/24 Mian Gillette Adjunct Psychology Faculty MemberSlack Cooper 12/29/23 [facility] 07/10/24 documented as of this encounter
--- OUTSIDE RECORDS SUMMARY | 2024-11-05 13:24 | XMS_ITS | Encounter Summary ---
Author Organization [employer] Address [address] [facility] 7t [place] [address] Care Team Providers Care Solar Manager Name Role Phone Name, Scot SEARS Primary Care Provider [phone] Puia, Alicia PharmD Unavailable [phone] Puia, Alicia PharmD Unavailable [phone] Encounter Details Date Type Department Care Team ([facility] st Contact Info) Description 11/05/2024 Population Health Risk Score Critical [facility] Care [facility] (C[facility]) Department [address] [facility] 7 [place] [phone] Provider, Population Health Generic Social History Tobacco Use Types Packs/Day Years [...] housing situation today? I have gisellamikael edwards 09/10/[address] you [...] 11/24/2024 10:00 AM EDT Medication Management [facility] MEDICINE [address] [place] [address] Alicia Fuentes PharmD [address] [place] [address] documented as of this encounter Goals Goal Patient Goal Type Associated Problems Recent Progress Patient-Stated? Author Smoking cessation General No Alicia Fuentes PharmD documented as of this encounter Visit Diagnoses Not on filedocumented in this encounter Additional Health Concerns Assessment Noted Time PHQ-9 Depression Total Score: 15 024 10:43 AM EDT documented as of this encounter Care Teams Solar Manager Relationship Specialty Start Date End Date Name, MD Scot [address] [place] [address] PCP - General Internal Medicine 08/16/22 Alicia Fuentes PharmD [address] [place] [address] Pharmacist Internal Medicine 12/18/22 Alicia Fuentes PharmD [address] [place] [address] Pharmacist Internal Medicine 07/28/24 Mian Gillette Lining BasterDependency Counselor 12/29/23 [facility] 07/10/24 documented as of this encounter
--- OUTSIDE RECORDS SUMMARY | 2024-11-05 13:24 | XMS_ITS | Encounter Summary ---
Author Organization [employer] Address [address] [facility] 7t [place] [address] Care Team Providers Care Sales Officer Name Role Phone Name, Scot SEARS Primary Care Provider [phone] Puia, Alicia PharmD Unavailable [phone] Puia, Alicia PharmD Unavailable [phone] Reason for Visit * Reason Comments Med Refill Encounter Details Date Type Department Care Team (Late st Contact Info) Description 09/16/2024 Refill [facility] MEDICINE [address] [place], [place] [phone] Name, MD Scot [address] [place], [place] [phone] New onset type 2 diabetes mellitus (CMS/HCC) [...] Description 11/24/2024 10:00 AM EDT Medication Management [facility] MEDICINE [address] [place] [address] Alicia Fuentes PharmD [address] [place] [address] documented as of this encounter Goals Goal [...] as of this encounter Care Teams Sales Officer Relationship Specialty Start Date End Date Name, MD Scot [address] [place] [address] PCP - General Internal Medicine 08/16/22 Alicia Fuentes, PharmD [address] [place] [address] Pharmacist Internal Medicine 12/18/22 Alicia Fuentes, Bob [address] [place] [address] Pharmacist Internal Medicine 07/28/24 Mian Gillette Gift WrapperBond Analyst 12/29/23 [facility] 07/10/24 documented as of this encounter
--- OUTSIDE RECORDS SUMMARY | 2024-11-05 13:24 | XMS_ITS | Clinical Summary ---
Author Organization [employer] Address [address] [place] [address] Care Team Providers Care Shaper Set Up Operator Name Role Phone Name, Scot SEARS Primary Care Provider [phone] Puia, Alicia PharmD Unavailable Puia, Alicia PharmD [...] > 170/100 1 each 024 Active Umeclidinium Ogden (Incruse Ellipta) 62.5 MCG/ACT aerosol powder Inhale 1 each in the morning. 1 each 024 Active omeprazole (PriLOSEC) [address] capsule Take 40 mg by mouth in the morning. 024 Active acetaminophen (Tylenol 8 Hour) 650 MG ER tablet TAKE 1 TABLET BY MOUTH EVERY 8 HOURS NEEDED FOR MILD PAIN. DO NOT BREAK, CRUSH, DISSOLVE OR CHEW. 60 tablet 1 024 Active methocarbamol (Robaxin) 750 MG tablet Take 1 tablet by mouth if needed in the morning, at noon, and at bedtime (pain). 024 Active aspirin 81 MG chewable tabletIndicatio ns:New onset type 2 diabetes mellitus (CMS/HCC) Chew 1 tablet (81 mg) Once per day. 30 tablet 11 024 2024 Active albuterol (Ventolin HFA) 108 (90 Base) MCG/ACT inhalerIndicati ons:Suspected chronic obstructive pulmonary disease based on initial evaluation ([facility]) INHALE 1 TO 2 PUFFS FOUR TIMES DAILY NEEDED FOR WHEEZING OR SHORTNESS OF BREATH 18 g 2 Active Advair Diskus 500-50 MCG/ACT aerosol powder INHALE 1 PUFF TWICE DAILY. RINSE MOUTH AFTER USING. Active insulin pen needle (Easy Touch Pen North) 32G x 4 mm misc Inject 1 each under the skin Once per day. Use 1 daily as directed for insulin administration Active TRUEplus Lancets 33G miscIndications :New onset type 2 diabetes mellitus ([facility]) Use to test blood sugar 2 time(s) daily 100 each 11 Active empagliflozin (Jardiance) 10 MGIndications:N ew onset type 2 diabetes mellitus ([facility]) Take 1 tablet (10 mg) by mouth Once per day. 30 tablet 11 024 Active atorvastatin (Lipitor) 80 MG tablet Take 1 tablet (80 mg) by mouth Once per day. 90 tablet 1 Active insulin degludec (Tresiba FlexTouch) 100 UNIT/ML injectionIndica tions:New onset type 2 diabetes mellitus ([facility]) Inject 18 Units under the skin at bedtime. If pattern of AM hypoBG continues decrease further to 16 units & call office. 15 mL 2 Active Additional Information Patient not taking.Reported on 10/28/2024 Alcohol Swabs (Alcohol Prep) 70 % pads Use up to three times daily before insulin injections & BG testing, as directed 100 each 11 025 Active fluticasone (Flonase) 50 MCG/ACT nasal spray INSTILL 2 SPRAYS IN EACH NOSTRIL ONCE DAILY 48 g Active Dulaglutide (Trulicity) 1.5 MG/0.5ML solution auto-injector Inject 1.5 mg under the skin 1 (one) time per week. 2 mL 025 2024 Active glucagon (Baqsimi Two Pack) 3 MG/DOSE nasal powderIndicatio ns:New onset type 2 diabetes mellitus (CMS/HCC) Administer 3 mg via 1 device into the nostril for hypoglycemia with loss of consciousness. If no response after 15 minutes administer an additional dose via 2nd device into other nostril. 2 each 1 025 Active Continuous Glucose Dentistry Professor (FreeStyle Neel 3 [place]) deviceIndicatio ns:New onset type 2 diabetes mellitus (CMS/HCC) 1 each Once per day. Use as directed for CGM 1 each 025 Active Continuous Glucose Sensor (FreeStyle Neel 3 Plus Sensor) miscIndications :New onset type 2 diabetes mellitus (CMS/HCC) Apply 1 every 15 days as directed for CGM 2 each Active glucose blood (FreeStyle Precision Luis Alberto Test) test stripIndication s:New onset type 2 diabetes mellitus (CMS/HCC) Use to test blood sugar up to 2 times daily, as directed 100 each 025 Active nicotine (Nicoderm CQ) 7 MG/24HR patch Place 1 patch on the skin 1 (one) time each day at the same time. 14 patch 2 025 Active hydrOXYzine pamoate (Vistaril) 25 MG capsule TAKE 1 CAPSULE BY MOUTH AT BEDTIME NEEDED FOR ITCHING 30 capsule 2 025 Active Diclofenac Sodium 1 % gel Apply 2 g topically if needed in the morning, at noon, in the evening, and at bedtime (pain). 150 g 3 024 2024 Discontinued(M ed list cleanup (will not trigger notification to Pharmacy)) Continuous Glucose Dentistry Professor (FreeStyle Neel 2 [place]) deviceIndicatio ns:New onset type 2 diabetes mellitus (CMS/HCC) Use to scan sensor at least every 8 hours, as directed, for CGM 1 each 024 2024 Discontinued(A lternate therapy) Continuous Glucose Sensor (FreeStyle Neel 2 Sensor) miscIndications :New onset type 2 diabetes mellitus (CMS/HCC) Apply 1 sensor, as directed, every 14 days for CGM 2 each 024 2024 Discontinued(R eorder (will not trigger notification to Pharmacy)) glucose blood (FreeStyle Precision Luis Alberto Test) test stripIndication s:New onset type 2 diabetes mellitus (CMS/HCC) Use to test blood sugar up to 2 times daily, as directed 100 each 11 024 2024 Discontinued(R eorder (will not trigger notification to Pharmacy)) hydrOXYzine pamoate (Vistaril) 25 MG capsule TAKE 1 CAPSULE BY MOUTH AT BEDTIME NEEDED FOR ITCHING 30 capsule 2 024 2024 Discontinued Dulaglutide (Trulicity) 1.5 MG/0.5ML solution auto-injector Inject 1.5 mg under the skin 1 (one) time per week. 2 mL 025 2024 Discontinued(R eorder (will not trigger notification to Pharmacy)) nicotine (Nicoderm, Step 2) 14 MG/24HR patchIndication s:Tobacco dependence APPLY 1 PATCH TOPICALLY TO THE SKIN IN THE MORNING *DO NOT SMOKE WHILE USING PATCH* 30 patch 1 025 2024 Discontinued(A lternate therapy) Continuous Glucose Sensor (FreeStyle Neel 2 Sensor) miscIndications :New onset type 2 diabetes mellitus (CMS/HCC) Apply 1 sensor, as directed, every 14 days for CGM 2 each 025 2024 Discontinued(A lternate therapy) Active Problems Problem Noted Date Diagnosed Date [...] pain syndrome 09/01/2024 Asthma-COPD overlap syndrome 09/01/2024 DKA (diabetic ketoacidosis) 09/01/2024 Encounter for preoperative pulmonary examination 09/01/2024 Environmental allergies 09/01/2024 GERD (gastroesophageal reflux disease) Hyperlipidemia 09/01/2024 Impingement syndrome, shoulder, left 09/01/2024 Intractable low back pain 09/01/2024 Lower extremity edema 09/01/2024 Morbid obesity 09/01/2024 Obesity 09/01/2024 Dyspnea on exertion 09/01/2024 Pulmonary nodules 09/01/2024 Spinal stenosis at L4-L5 level 09/01/2024 Spondylolisthesis, lumbar region 09/01/2024 Umbilical hernia, incarcerated 09/01/2024 Neurogenic claudication due to lumbar spinal gloria nosis 09/01/2024 Diabetes 09/01/2024 Assessment & Plan (09/19/2024 1:18 PM EST): Due to increased weight and blood sugar despite compliance with nutrition and medications, will increased glp-1 and encouraged lifestyle changes including increased activity as tolerated Smoking cessation encouraged Status post total hip replacement, right 025 Overview (09/01/2024): 08/2023 Lipoma 08/04/2024 Phlegm in throat 07/21/2024 Assessment & Plan [...] and consideration for hypoglycemia risk. Referred to CDTM program, spoke with [facility] pharmacist who plans to f/u with [...] function F/u in 2 weeks with PCP Mild depression 10/24/2023 Assessment & Plan (10/24/2023 2:13 PM EST): PROGRESS NOTE: ID: Cameron is a 58 y.o. cis-male (pronouns he/him/his) with previous documented hx of Depression and Anxiety. History of services including OP Psychotherapy and psychopharmacology while [...] intervention , [facility], and Patient to reach out to [facility] as needed Severe anxiety 10/24/2023 Status post right hip replacement 09/12/2023 Dental [...] lumbar intervertebral disc 08/14 Primary hypertension 07/10/2022 Resolved Problems Problem Noted Date Diagnosed Date Resolved Date COPD (chronic obstructive pulmonary disease) 11/04/2024 Orthopnea 09/01/2024 11/04/2024 Spondylosis, lumbar, with myelopathy 09/01/2024 11/04/2024 HTN (hypertension) 09/01/2024 Congestion of respiratory tract 07/21/2024 11/04/2024 Assessment & Plan (07/21/2024 4:29 PM EST): Lung sounds clear, no recent illness, no fever, no chills Will send rx for Mucinex BID prn for 10 days for congestion/mucus build up Cough in adult 06/11/2024 11/04/2024 Moderate persistent asthma w ith acute exacerbation 10/15/2023 11/04/2024 Assessment & Plan (02/03/2024 7:11 PM EDT): [...] do not improve after completing medrol pack Encounters Date Type Department Care Team Description 11/05/2024 11:00 AM EDT Office Visit [facility] [address] [place] [address] Scot Mathews MD Type 2 diabetes mellitus with hypoglycemia without coma, unspecified whether skilled nursing insulin use ([facility]) (Primary Dx); Urinary frequency 11/05/2024 Population [facility] Risk Score [facility] () Department [address] [phone] Provider, Population Health Generic 10/31/2024 Refill [facility] [address] [facility] [place] [address] cSot Mathews MD 10/28/2024 Telephone [facility] [address] [place] [address] Alicia Fuentes PharmD Prior Authorization (Neel 3 CGM) 10/28/2024 Travel 10/26/2024 Telephone [facility] [address] [place] [address] Scot Mathews MD Results 10/19/2024 Telephone [facility] [address] [place] [address] Scot Mathews MD Med Refill 10/19/2024 Refill [facility] [address] [place] [address] Scot Mathews MD New onset type 2 diabetes mellitus ([facility]) 10/18/2024 Refill [facility] [address] [place] [address] Alicia Fuentes PharmD New onset type 2 diabetes mellitus ([facility]) 10/02/2024 Refill [facility] [address] [place] [address] Elizabeth Vázquez FNP 10/02/2024 Refill [facility] [address] [place] [address] Rianna Degroot NP Tobacco dependence 09/30/2024 Refill [facility] [address] [place] [address] Alicia Fuentes PharmD 09/24/2024 Travel 09/17/2024 11:00 AM EST Clinical Support [facility] [address] [facility] [place] [address] Marilyn Keenan, KENNEDY Impacted cerumen, unspecified laterality 09/17/2024 Travel 09/16/2024 Refill [facility] [address] [facility] [place] [address] Scot Mathews MD New onset type 2 diabetes mellitus (CMS/HCC) 09/10/2024 11:15 AM EST Office Visit [facility] [address] [facility] [place] [address] Lexi North NP Impacted cerumen, unspecified laterality (Primary Dx); New onset type 2 diabetes mellitus (CMS/HCC) 09/10/2024 Travel 09/06/2024 Telephone [facility] [address] [facility] [place] [address] Brittany Mcclure MA Chart Prep 09/06/2024 Travel 09/02/2024 Orders Only GENERIC EXTERNAL DATA DEPARTMENT Provider, Generic External Data 09/01/2024 Telephone [facility] [place] [address] Brittany Mcclure MA Chart Prep 09/01/2024 Telephone [facility] [place] [address] Scot Mathews MD Appointment Request 08/27/[address] [address] Scot Mathews MD Nurse Triage 08/26/[address] [address] Scot Mathews MD Med Refill 08/13/2024 Telephone [facility] [place] [address] Scot Mathews MD Nurse Triage 08/12/2024 Orders Only [facility] External Provider, [facility] 08/12/2024 Telephone [facility] [place] [address] Marilyn Keenan, KENNEDY 08/11/2024 10:00 AM EST Clinical Support [facility] [place] [address] Sabina Laguna, KENNEDY Primary hypertension 08/11/2024 Travel 08/11/2024 Refill [facility] [address] [place], [place] [phone] Clarissa Valentine, ANP New onset type 2 diabetes mellitus (CMS/HCC) from Last 3 Months Immunizations Name Administration [...] Tobacco: Never Tobacco Cessation:Ready to Q uit: Yes; Counseling Given: Yes Alcohol Use Standard Drinks/Week Comments Never 0 [...] 24 11/05/2024 11:01 AM EDT Oxygen Saturation 96% 09/17/2024 11:00 AM EST Inhaled Oxygen Concentration - - Weight 108 kg (239 lb) 11/05/2024 11:01 AM EDT Height 172.7 cm (5' 8 ) 09/10/2024 11:33 AM EST Body Mass Index 36.34 09/10/2024 11:33 AM EST Plan of Treatment Upcoming Encounters Date Type Department Care Team (Late st Contact Info) Description 11/24/2024 10:00 AM EDT Medication Management [facility] [address] [place] [address] Alicia Fuentes, PharmD [address] [place] [address] Health Maintenance Due Date Last Done Comments CT Colonography 1965 Colonoscopy 1965 Colorectal Cancer Screening 1965 Dental Prophylaxis 1965 FIT DNA/Cologuard 1965 FIT 1965 FOBT 1965 Sigmoidoscopy 1965 Diabetes: Foot Exam 1975 Dental Oral Exam 02/28/2023 08/30/2022 Dental X-Ray: [...] 08/30/2022 SDOH Screening 09/10/2025 09/10/2024 Tobacco Screening 10/28/2025 10/28/2024 DTaP/Tdap/Td Vaccines (2 - Td or Tdap) [...] on patient's age to complete this topic Hepatitis A Vaccines Aged Out No long er eligible based on patient's age to complete [...] Smoking cessation General No Alicia Fuentes PharmD Procedures Procedure Name Priority Date/Time Associated Diagnosis Comments POCT GLUCOSE Routine 11/05/2024 11:03 AM EDT Type 2 diabetes mellitus with hypoglycemia without coma, unspecified whether terminal system operator insulin use (CMS/HCC) BASIC METABOLIC PANEL Routine 09/24/2024 11:03 AM EST New onset type 2 diabetes mellitus (CMS/HCC) Low blood pressure reading Lipoma, unspecified site NE REMOVAL IMPACTED CERUMEN IRRIGATION/LVG UNILAT Routine 09/17/2024 11:16 AM EST Impacted cerumen, unspecified laterality POCT GLYCATED HEMOGLOBIN, TOTAL Routine 09/10/2024 11:36 AM EST New onset type 2 diabetes mellitus (CMS/HCC) POCT GLUCOSE Routine 09/10/2024 11:36 AM EST New onset type 2 diabetes mellitus (CMS/HCC) GROSS AND MICROSCOPIC LEVEL 3 Routine 09/02/2024 2:[address] CHEST WO CONTRAST Routine 08/12/2024 2:07 PM EST ALBUMIN, RANDOM URINE W/CREATININE Routine 07/30/2024 4:03 PM EST New onset type 2 diabetes mellitus (CMS/HCC) LIPID PANEL, STANDARD Routine 07/30/2024 4:03 PM EST On statin therapy HEPATITIS C ANTIBODY Routine 11/05/2023 8:18 AM EDT Need for hepatitis C screening test HIV 1/2 ANTIGEN/ANTIBODY, FOURTH GENERATION W/RFL Routine 11/05/2023 8:18 AM EDT Encounter for screening for HIV INTRAORAL - COMPLETE SERIES OF RADIOGRAPHIC IMAGES Routine 08/30/2022 8:00 AM EST COMPREHENSIVE ORAL EVALUATION - NEW OR ESTABLISHED PATIENT Routine 08/30/2022 8:00 AM EST from Last 3 Months or Most Recently Relevant to Health Maintenance Results * POCT glucose manually resulted (11/05/2024 11:03 AM EDT) Only the most recent of2 resultswithin the time period is included. Glucose Blood, POC 104 60 - 200 mg/dL QC Media Lot # [id number] Lot# Expiration Date [id number] Blood Capillary blood specimen / Unknown 11/05/2024 11:03 AM EDT us Scot Mathews MD POINT OF CARE TEST ENTER/EDIT OR DERABLES Final Result * (ABNORMAL) Basic Metabolic Panel (09/24/2024 11:03 AM EST) Sodium 141 135 - 145 mmol/L [facility] Potassium 4.5 3.3 - 5.1 mmol/L [facility] Chloride 105 96 - 108 mmol/L [facility] Carbon Dioxide 26 22 - 29 mmol/L [facility] Anion Gap 15 12 - 20 [facility] Urea Nitrogen (BUN) 17(H) 9 - 16 mg/dL [facility] Creatinine, Serum 0.93 0.5 - 1.4 mg/dL [facility] Estimated Glomerular Filt Rate >60 [facility] Comment:Chronic Kidney Disea se: Estimated GFR < 60 mL/min/1.09h7Hutqjm Kidney Disease: Estimated GFR < 15 mL/min/1.73m2 Glucose 93 60 - 115 mg/dL [facility] Calcium 10.0 8.4 - 10.2 mg/dL [facility] Blood Venous blood specimen / Unknown 09/24/2024 11:03 AM EST 09/24/2024 1:29 PM EST us Scot Mathews MD LAB BLOOD ORDERABLES Final Resul t [facility] [address] [place] [phone] * NE REMOVAL IMPACTED CERUMEN IRRIGATION/LVG UNILAT (09/17/2024 11:16 [...] PM EST 09/02/2024 2:30 PM EST Ilir [facility] - 09/06/2024 10:22 AM EST ----- ------- Name: CalderonRasta ? Age/Sex: 59/M ? : 1965 Unit#: [id number] ?? Attend Dr: Cesar Humphries MD ?Re09/02/24 ?Status: DEP REF ? Location: HO.LNP ?Disch: ? ----- ------- SPEC : [id number] ?RECD: 09/02/24-1430 ? STATUS: ??SOUT ? REQ NUM: [id number] ? BRIA: 09/02/24-0372 ? SUBM DR: Cesar Humphries MD ? ENTERED: ??09/02/242068 ?SP TYPE: Surgical ? OTHR DR: Name,Scot SEARS ? ORDERED: ??Gross Micro L3 ? Diagnosis [...] No hemorrhagic or necrotic foci are identified. ??Control Systems Designer sections are submitted in cassettes A1-A3. ??CEDS This case was reviewed intradepartmentally. Copies To: ?? Cesar Humphries MD ?? [facility] General Surgeons ?? [address] [facility] ?? [place] [address] ?? [phone] ?? Name,Scot SEARS ?? [address] [facility] ?? [place] [address] ?? [phone] ----- ------- Signed (signature on file) Reinier Farmer MD 09/06/24 1022 ? ----- ------- ? END OF REPORT ? us Generic External Data Provider LAB CYTOLOGY ORDE RABLILIAN Final Result [facility] [address] [place] [address] [phone] * CT Chest w/o Contrast (08/12/2024 2:07 PM EST) Anatomical Region Laterality Modality Body, Chest Computed Tomogra phy 08/12/2024 2:07 PM EST Narrative 09/22/2024 11:09 AM EST ? [facility] ?[address] ?[place] [address] ? CT Scan Report ? Signed ? Patient: Cameron Calderon ?MR#: [id number] ?? 14 ? : 1965 ?Acct:[id number] ? Age/Sex: 59 / M ?ADM Date: 08/12/24 ? Loc: HO.CT ? Attending Dr: Russ Quiñonez MD ? Ordering Physician: Russ Quiñonez MD ?? Date of Service: 08/12/24 ?? Procedure(s): CT chest wo IV con ?? Accession Number(s): [id number] ? cc: Scot Mathews MD; Russ Quiñonez MD ? Report Number: ?? [id number]: Total DLP = ??202.00 mGy-cm ?? EXAMINATION: [...] Weiner MD ??09/22/2024 11:06 AM ?? EST ? Dictated By: ?Shane Lopez MD ? Signed By: ?<Electronically signed by Shane Callahan MD in OV> ? 09/22/24 1106 ? DD/ 1407 ? TD/TT: 08/12/24 1415 ? Social Media Specialist: ? Procedure Note Prasanth, Riya - 09/22/[address] [address] [address] Scan Report Signed Patient: Camreon Calderon [facility]#: [id number] 14 : 1965Acct:[id number] Age/Sex: 59 / MADM Date: 08/12/24 Loc: HO.CT Attending : Russ Quiñonez MD Ordering Physician: Russ Quiñonez MD Date of Service: 08/12/24 Procedure(s): CT chest wo IV con Accession Number(s): [id number] cc: Name,Scot SEARS; Russ Quiñonez MD Report Number: [id number]: Total DLP = 202.00 mGy-cm EXAMINATION: CT [...] by: Shane Weiner MD 09/22/2024 11:06 AM [facility] Dictated By: Shane Lopez MD Signed By: <Electronically signed by Shane Callahan MDin OV> 09/22/24 1106 DD/ 1407 TD/TT: 08/12/24 1415 Social Media Specialist: [facility] External Provider IMG CT PROCEDURES Edited Result - Final * Albumin, Random Urine W/Creatinine (07/30/2024 4:03 PM EST) Creatinine, Urine 122.34 mg/dL [facility] Microalbumin Urine 14.0 mg/L [facility] Microalbum Creatinine Ratio Ur 11.4 <30 ug/mg cr [facility] Comment:Albumin/Creatinine R atio Reference Ranges: Normal: < 30 ug/mg creatinine Microalbuminuria: 30 - 300 ug/mg creatinineClinical Albuminuria: > 300 ug/mg creatinine Urine (Urine, Random) 07/30/2024 4:03 PM EST 07/30/2024 5:39 PM EST Lexi North NP LAB URINE ORDERABLES Final Resul t Performing Organization Address City/State/[facility] Co de Phone Number [facility] [address] [place] [phone] * (ABNORMAL) Lipid Panel, Standard (07/30/2024 4:03 PM EST) Triglycerides 339(H) <150 mg/dL [facility] Comment:Desirable Triglyceri de: less than 150 mg/dLBorderline High Triglyceride 150-199 mg/dLHigh Triglyceride: 200-499 mg/dLVery High Triglyceride: greater than or equal to 5OO mg/dL Cholesterol 237(H) <200 mg/dL [facility] Comment:Desirable Cholestero l: less than 200 mg/dLBorderline High Cholesterol: 200-239 mg/dLHigh Cholesterol: greater than 239 mg/dL LDL Cholesterol Calculated 140(H) <100 mg/dL [facility] Comment:Desirable LDL: less than 100 mg/dLNear Optimal/Above Optimal LDL: 110- 129 mg/dLBorderline High LDL: 130-159 mg/dLHigh LDL: 160-189 mg/dLVery High LDL: greater than or equal to 190 mg/dL HDL Cholesterol 30(L) >40 mg/dL [facility] Comment:Desirable HDL: great er than 40 mg/dL Note: This HDL assay may give artificially low results in patients with liver disease. Blood Venous blood specimen / Unknown 07/30/2024 4:03 PM EST 07/30/2024 5:39 PM EST us Lexi North TURRET LATHE SET UP OPERATOR LAB BLOOD ORDERABLES Final Resul t Performing Organization Address City/[facility]/ZIP Co de Phone Number [facility] [address] [place] [phone] * Hepatitis C Ab (11/05/2023 8:18 AM EDT) Hepatitis C Antibody Nonreactive Nonreactive [facility] Comment:Antibodies to HCV no t detected; does not exclude early acuteHCV infection. Blood Venous blood specimen / Unknown 11/05/2023 8:18 AM EDT 11/05/2023 11:14 AM EDT Scot Mathews MD LAB BLOOD ORDERABLES Final Resul t Performing Organization Address [facility] Co de Phone Number [facility] [address] [place] [phone] * HIV-1/2 Antigen and Antibodies, Fourth Generation, with Reflexes (11/05/2023 8:18 AM EDT) HIV AB/AG Nonreactive Nonreactive [facility] Comment:HIV-1 p24 Ag and/or HIV-1/HIV-2 Ab not detected.A test result that is nonreactive does not exclude thepossibility of exposure to or infection with HIV-1 and/orHIV-2. Nonreactive results in this assay for individualswith prior exposure to HIV-1 and/or HIV-2 may be due toantigen and antibody levels that are below the limit ofdetection of this assay.The [employer] HIV Ag/Ab Combo assay result andsupplemental assay results should be interpreted inconjunction with the patient's clinical presentation,history and other laboratory results. If the results areinconsistent with clinical evidence, additional testing issuggested to confirm the result. Blood Venous blood specimen / Unknown 11/05/2023 8:18 AM EDT 11/05/2023 11:14 AM EDT us Scot Mathews MD LAB BLOOD ORDERABLES Final Resul t [facility] [address] [place] [address] [phone] from Last 3 Months or Most Recently Relevant to Health Maintenance Insurance [address] [place] [address] HSN [facility] C[facility] STAND ADULT [address] [place] [address] [address] [place] [address] Care Teams Shaper Set Up Operator Relationship Specialty Start Date End Date Name, MD Scot [address] [place] [address] PCP - General Internal Medicine 08/16/22 Alicia Fuentes PharmD [address] [place] [address] Pharmacist Internal Medicine 12/18/22 Alicia Fuentes PharmD [address] [place] [address] Pharmacist Internal Medicine 07/28/24 Mian Gillette Supervisor TitleAccount Assistant 12/29/23 [facility] 07/10/24
--- OUTSIDE RECORDS SUMMARY | 2024-11-05 13:24 | XMS_ITS | Encounter Summary ---
Author Organization [employer] Address [address] [facility] 7t [place] [address] Care Team Providers Care Winterizer Name Role Phone Name, Scot SEARS Primary Care Provider [phone] Puia, Alicia PharmD Unavailable [phone] Puia, Alicia PharmD Unavailable [phone] Encounter Details Date Type Department Care Team (Latest Contact Info) Description 10/28/2024 Travel Social History Tobacco Use Types Packs/Day [...] Description 11/24/2024 10:00 AM EDT Medication Management [facility] 230 [place] [address] Alicia Fuentes, PharmD 230 [place] [address] documented as of this encounter Goals Goal Patient Goal Type Associated Problems Recent Progress Patient-Stated? Author Smoking cessation General No Alicia Fuentes, PharmD documented as of this encounter Visit Diagnoses Not on filedocumented in this encounter Additional Health Concerns Assessment Noted Time PHQ-9 Depression Total Score: 15 024 10:43 AM EDT documented as of this encounter Care Teams Winterizer Relationship Specialty Start Date End Date Name, MD Scot [address] [place] [address] PCP - General Internal Medicine 08/16/22 PuiaLincolnAlicia, PharmD [address] [place] [address] Pharmacist Internal Medicine 12/18/22 PuiaImeldasa, PharmD [address] [place] [address] Pharmacist Internal Medicine 07/28/24 Mian Gillette Routing Machine OperatorMolecular Genetic Pathologist 12/29/23 [facility] 07/10/24 documented as of this encounter
--- OUTSIDE RECORDS SUMMARY | 2024-11-05 13:24 | XMS_ITS | Encounter Summary ---
Author Organization [employer] Address [address] [facility] 7t [place] [address] Care Team Providers Care Brace Maker Name Role Phone Name, Scot SEARS Primary Care Provider Puia, Alicia PharmD Unavailable [phone] Puia, Alicia PharmD Unavailable Reason for Visit * Reason Onset Date Comments Med Refill 10/19/2024 Encounter Details Date Type Department Care Team (Late st Contact Info) Description 10/19/2024 Refill [facility] 230 [place], [place] [phone] Name, MD Scot 230 [place], [place] [phone] New onset type 2 diabetes mellitus (CMS/HCC) [...] encounter Miscellaneous Notes * Telephone Encounter - Melchor Osorio - 10/19/2024 9:35 AM EST TC from pt requesting medication refill. Medications needing refill : Dulaglutide (Trulicity) 1.5 MG/0.5ML solution auto-injector To be sent to: [facility] - [place], [place] - [address] [place] [address] documented in this encounter Plan of Treatment Upcoming Encounters Date Type Department Care Team ([facility] st Contact Info) Description 11/24/2024 10:00 AM EDT Medication Management [facility] [address] [place] [address] Alicia Fuentes PharmD 230 [place] [address] documented as of this encounter Goals Goal [...] documented as of this encounter Care Teams Brace Maker Relationship Specialty Start Date End Date Name, MD Scot 230 [place] [address] PCP - General Internal Medicine 08/16/22 Alicia Fuentes PharmD [address] [place] [address] Pharmacist Internal Medicine 12/18/22 Alicia Fuentes PharmD [address] [place] [address] Pharmacist Internal Medicine 07/28/24 Mian Gillette Sampling Theory TeacherEnergy Efficiency Engineer 12/29/23 [facility] 07/10/24 documented as of this encounter
--- OUTSIDE RECORDS SUMMARY | 2024-11-05 13:24 | XMS_ITS | Encounter Summary ---
Author Organization [employer] Address [address] [facility] 7t [place] [address] Care Team Providers Care Memory Care Director Name Role Phone Name, Scot SEARS Primary Care Provider [phone] Puia, Alicia PharmD Unavailable [phone] Puia, Alicia PharmD Unavailable Reason for Visit * Reason Onset Date Comments Results 10/26/2024 Encounter Details Date Type Department Care Team ([facility] st Contact Info) Description 10/26/2024 Telephone [facility] 230 [place], [place] [phone] Name, MD Scot 230 [place], [place] [phone] Results Social History Tobacco Use Types Packs/Day Years [...] encounter Miscellaneous Notes * Telephone Encounter - Sabina Laguna RN - 10/27/2024 11:59 AM EST TC placed to pt via [employer] promotion writer (ID#[id number]) to advise of below message from Alicia. Pt advised of appointment with pharmacy tomorrow 10/28/24 at 10:00 AM. Pt verbalized understanding and denies questions at this time. Alicia: Please return call to [place] and give ok to decrease Tresiba dose to 12 units (-4) for the next few days. * Telephone Encounter - Vero Gage - 10/27/2024 10:41 AM EST Tc from pt returning phone call. ITALIAN * Telephone Encounter - Janette Villa RN - 10/27/2024 9:21 AM EST T/C placed to [facility]NA. Advised Oral of recommendation to decrease Tresuba to 12 units until pharmacy appointment. [place] states that he held Tresiba today as pt's blood sugar ws 88. [place] requests that RN advise pt of plan. T/C to pt via [employer] Vero #[id number] to advise of pharmacy recommendation. No answer, v/m left to return call to Blue team nurses. * Telephone Encounter - Janette Villa RN - 10/26/2024 2:52 PM EST T/C to [facility] to advise of message from Alicia: please return call to [place] and give ok to decrease Tresiba dose to 12 units (- 4) for the next fewdays. No answer, v/m left to return call to Blue team nurses. * Telephone Encounter - Janette Villa RN - 10/26/2024 1:22 PM EST Call returned to [facility]NA. Oral states that pt has been using 16u of Tresiba but continues to have lowblood sugar in the morning. Advised CDTM visit is scheduled 10/28/24 and pharmacy will be updated. * Telephone Encounter - Yolanda Damian RN - 10/26/2024 9:49 AM EST TC incoming from pt [facility] looking to leave message for PCP. States pt has been having low BS in the morning, yesterday 58, today 67. Insulin was held both days. [facility] looking to speak to nurse to see if PCP would like to lower dosage. Will route to PCP team to advise. documented in this encounter Plan of Treatment Upcoming Encounters Date Type Department Care Team (Late st Contact Info) Description 11/24/2024 10:00 AM EDT Medication Management [address] [address] Alicia Fuentes PharmD 230 [place] [address] documented as of this encounter Goals Goal Patient Goal Type Associated Problems Recent Progress Patient-Stated? Author Smoking cessation General No Alicia Fuentes PharmD documented as of this encounter Visit Diagnoses Not on filedocumented in this encounter Additional Health Concerns Assessment Noted Time PHQ-9 Depression Total Score: 15 024 10:43 AM EDT documented as of this encounter Care Teams Memory Care Director Relationship Specialty Start Date End Date Name, MD Scot [address] [place] [address] PCP - General Internal Medicine 08/16/22 Alicia Fuentes PharmD [address] [place] [address] Pharmacist Internal Medicine 12/18/22 Alicia Fuentes PharmD [address] [place] [address] Pharmacist Internal Medicine 07/28/24 Mian Gillette Cordage Sales RepresentativeMotor Electrician 12/29/23 [facility] 07/10/24 documented as of this encounter
--- OUTSIDE RECORDS SUMMARY | 2024-11-05 13:24 | XMS_ITS | Encounter Summary ---
Author Organization [employer] Address [address] [facility] 7t [place] [address] Care Team Providers Care Game Producer Name Role Phone Name, Scot SEARS Primary Care Provider [phone] Puia, Alicia PharmD Unavailable [phone] Puia, Alicia PharmD Unavailable [phone] Reason for Visit * Reason Onset Date Comments Med Refill 10/19/2024 Encounter Details Date Type Department Care Team (Late st Contact Info) Description 10/19/2024 Telephone [facility] 230 [place], [place] [phone] Name, MD Scot 230 [place], [place] [phone] Med Refill Social History Tobacco Use Types [...] Telephone Encounter - Melchor Osorio - 10/19/2024 9:37 AM EST TC from pt requesting medication refill. Medications needing refill : Continuous Glucose Sensor (FreeStyle Neel 2 Sensor) misc To be sent to: [facility] - [place], [place] - [address] [place] [address] documented in this encounter Plan of Treatment Upcoming Encounters Date Type Department Care Team ([facility] st Contact Info) Description 11/24/2024 10:00 AM EDT Medication Management [facility] 230 [place] [address] Alicia Fuentes, PharmD 230 [place] [address] documented as of this encounter Goals Goal Patient Goal Type Associated Problems Recent Progress Patient-Stated? Author Smoking cessation General No Alicia Fuentes, PharmD documented as of this encounter Visit Diagnoses Not on filedocumented in this encounter Additional Health Concerns Assessment Noted Time PHQ-9 Depression Total Score: 15 024 10:43 AM EDT documented as of this encounter Care Teams Game Producer Relationship Specialty Start Date End Date Name, MD Scot 230 [place] [address] PCP - General Internal Medicine 08/16/22 Alicia Fuentes PharmD [address] [place] [address] Pharmacist Internal Medicine 12/18/22 Alicia Fuentes PharmD [address] [place] [address] Pharmacist Internal Medicine 07/28/24 Mian Gillette Screw Machine Operator Swiss TypeWare Tester 12/29/23 [facility] 07/10/24 documented as of this encounter
--- OUTSIDE RECORDS SUMMARY | 2024-11-05 13:24 | XMS_ITS | Encounter Summary ---
Author Organization [employer] Address [address] [facility] 7t [place] [address] Care Team Providers Care Music Therapist Name Role Phone Name, Scot SEARS Primary Care Provider [phone] Puia, Alicia PharmD Unavailable [phone] Puia, Alicia PharmD Unavailable Reason for Visit * Reason Comments Med Refill Encounter Details Date Type Department Care Team (Late st Contact Info) Description 10/31/2024 Refill [facility] 230 [place], [place] [phone] Name, MD Scot 230 [place], [place] [phone] Social History Tobacco Use Types Packs/Day Years [...] Medication Management [facility] [address] [place] [address] Alicia Fuentes PharmD [address] [place] [address] documented as of this encounter Goals Goal Patient Goal Type Associated Problems Recent Progress Patient-Stated? Author Smoking cessation General No Alicia Fuentes, PharmD documented as of this encounter Visit Diagnoses Not on filedocumented in this encounter Additional Health Concerns Assessment Noted Time PHQ-9 Depression Total Score: 15 024 10:43 AM EDT documented as of this encounter Care Teams Music Therapist Relationship Specialty Start Date End Date Name, MD Scot [address] [place] [address] PCP - General Internal Medicine 08/16/22 Alicia Fuentes, PharmD [address] [place] [address] Pharmacist Internal Medicine 12/18/22 Alicia Fuentes, Bob [address] [place] [address] Pharmacist Internal Medicine 07/28/24 Mian Gillette Parking Lot AttendantCan Feeder 12/29/23 [facility] 07/10/24 documented as of this encounter
--- OUTSIDE RECORDS SUMMARY | 2024-11-05 13:24 | XMS_ITS | Encounter Summary ---
Author Organization [employer] Address [address] [facility] 7t [place] [address] Care Team Providers Care Plant Senior Manager Name Role Phone Name, Scot SEARS Primary Care Provider [phone] Puia, Alicia PharmD Unavailable [phone] Puia, Alicia PharmD Unavailable Reason for Visit * Reason Comments Med Refill Encounter Details Date Type Department Care Team (Late st Contact Info) Description 10/02/[address] [facility] MED[facility]INE 230 [place], [place] [phone] Name, MD Scot 230 [place], [place] [phone] Tobacco use Social History Tobacco Use Types [...] with others, in a hotel, in a detention, living outside on the street, on a [...] AM EDT Medication Management [facility] MEDICINE [address] [place] [address] Alicia Fuentes PharmD [address] [place] [address] documented as of this encounter Goals Goal Patient Goal Type Associated Problems Recent Progress Patient-Stated? Author Smoking cessation General No Alicia Fuentes PharmD documented as of this encounter Visit Diagnoses Diagnosis Tobacco use documented in this encounter Additional Health Concerns Assessment Noted Time PHQ-9 Depression Total Score: 9 09/12/19 24 9:23 AM EST documented as of this encounter Care Teams Plant Senior Manager Relationship Specialty Start Date End Date Name, MD Scot [address] [place] [address] PCP - General Internal Medicine 08/16/22 Alicia Fuentes PharmD [address] [place] [address] Pharmacist Internal Medicine 12/18/22 Alicia Fuentes, AnkushD [address] [place] [address] [place] [address] Pharmacist Internal Medicine 07/28/24 Mian Gillette Quantitative Strategy AnalystLeather Belt Maker 12/29/23 [facility] 07/10/24 documented as of this encounter
[2024-11-05 13:51] LABS: Appearance Urine Clear; Color Urine Yellow; Glucose Urine UA >=1000 mg/dL (Negative); Leukocyte Esterase Urine Negative (Negative); Nitrite Urine Negative (Negative); Specific Gravity - Urine 1.015 (1.005-1.025); UMIC TRIGGER UACC YES; Urine Blood Negative (Negative); Urine Ketones Negative (Negative); Urine Protein Negative (Neg-Trace)
[2024-11-05 13:57] LABS: Bacteria Urine None Seen (None Seen); Hyaline Casts Urine 0-2 /LPF (0-2); RBC Urine 0-2 /HPF (0-2); Squamous Epithelial Cell Urine 0-2 /HPF (0-2); WBC Urine 0-5 /HPF (0-5)
[2024-11-05 14:25] LABS: Prostate Specific Antigen 0.63 ng/mL (<0.05-4.0)
[2024-11-05 14:29] LABS: Alanine Aminotransferase 28 U/L (0-40); Albumin Level 4.2 g/dL (3.5-5.0); Alkaline Phosphatase 159 U/L (39-117); Aspartate Amino Transferase 21 U/L (5-37); Bilirubin Direct 0.2 mg/dL (0.0-0.5); Bilirubin Total 0.5 mg/dL (0.0-1.0); Cholesterol 189 mg/dL (<200); HDL Cholesterol 33 mg/dL (>40); LDL Cholesterol Calculated 101 mg/dL (<100); Total Protein 8.8 g/dL (6.5-8.0); Triglycerides 278 mg/dL (<150)
== END 2024-11-05 11:34 | disposition home or self-care (01) ==
LOC: HO.HHCL 11:33
PROVIDERS: Visit Provider Internal Medicine Geriatric Medicine
DX: Z12.5 Encounter for screening for malignant neoplasm of prostate (principal); E11.9 Type 2 diabetes mellitus without complications; E78.5 Hyperlipidemia, unspecified; R35.0 Frequency of micturition
CPT/HCPCS: 36415; 80061; 80076; 81001; 84153

== ENCOUNTER 2025-04-04 12:59 | Outpatient (AMB) | payer MEDICAID, SELFPAY ==
--- OUTSIDE RECORDS SUMMARY | 2025-04-04 13:06 | XMS_ITS | Encounter Summary ---
Author Organization [employer] Address [address] [facility] 7 [place] [address] Care Team Providers Care Sawyer Cork Slabs Name Role Phone Name, Scot SEARS Primary Care Provider Puia, Alicia PharmD Unavailable Puia, Alicia PharmD Unavailable Reason for Visit * Reason Comments Med Refill Encounter Details Date Type Department Care Team (Late st Contact Info) Description 12/12/2023 Refill [facility] 230 [place], [place] [phone] Radha Foster DO 230 [place], [place] [phone] Social History Tobacco Use Types Packs/Day Years [...] with others, in a hotel, in a assisted, living outside on the street, on a [...] Care Team (Late st Contact Info) Description 04/28/2025 10:30 AM EDT Office Visit [facility] [address] [place] [address] NameScot MD 230 [place] [address] documented as of this encounter Goals Goal Patient Goal Type Associated Problems Recent Progress Patient-Stated? Author Smoking cessation General No Alicia Fuentes, PharmD documented as of this encounter Visit Diagnoses Not on filedocumented in this encounter Additional Health Concerns Assessment Noted Time PHQ-9 Depression Total Score: 9 10/24/19 24 10:30 AM EST documented as of this encounter Care Teams Sawyer Cork Slabs Relationship Specialty Start Date End Date Scot Mathews MD [address] [place] [address] PCP - General Internal Medicine 08/16/22 Alicia Fuentes, PharmD 230 [place] [address] Pharmacist Internal Medicine 12/18/22 01/30/25 Alicia Fuentes, Bob 230 [place] [address] Pharmacist Internal Medicine 07/28/24 01/30/25 Mian Gillette Well Control InstructorParalegal Specialist 12/29/23 [facility] 07/10/24 documented as of this encounter
--- OUTSIDE RECORDS SUMMARY | 2025-04-04 13:06 | XMS_ITS | Clinical Summary ---
Author Organization [facility] Address [address] [facility] [address] [place] [address] Phone Care Team Providers Care Carbon Sequestration Plant Operator Name Role Phone Bib Parra MD Primary Care Pro vider Social History Tobacco Use Types Packs/Day Years Used Date Smoking Tobacco: Never Assessed Education Answer Date Recorded Are you interested in more education? Not on abida e 12/21/2022 Are you concerned about learning? Not on file 12/21/2022 No 12/21/2022 No 12/21/2022 Digital Access Answer Date Recorded No 01/21/2023 No 01/21/2023 Reliable internet access at home? Not on file 01/21/2023 Device with a working camera? Not on file Sex and Gender Information Value Date Recorded Sex Assigned at Not on file Legal Sex Male 9:12 AM EST Gender Identity Not on file Sexual Orientation Not on file Plan of Treatment Not on file Medical Devices Not on file Insurance [facility] [place] [id number] [place] [id number] MGBHP MY CARE FAMILY ACO [employer] MY CARE FAMILY ACO [employer] MY CARE FAMILY ACO [employer] MY CARE FAMILY ACO [employer] MY CARE FAMILY ACO MGBHP MY CARE FAMILY ACO [employer] MY CARE FAMILY ACO [facility] MY CARE FAMILY ACO Care Teams Carbon Sequestration Plant Operator Relationship Specialty Start Date End Date Bib Parra MD [address] [place] [address] PCP - General 10/31/21 Additional Source Comments The information contained in this document represents components of the legal health record. It is not the complete legal health record.[facility]
[2025-04-04 13:52] VITALS: BP 124/66; PULSE 90; O2SAT 94; BMI 35.9
--- NOTE | 2025-04-04 13:52 | MHC.OFFVIS ---
Vital Signs 04/04/25 13:52 Height 5 ft 8 in Weight 236 lb BMI 35.9 BP 124/66 Blood Pressure Location Lt brachial Position Sitting Pulse 90 Pulse Source Pulse Oximeter Pulse Oximetry (%) 94 Oxygen Delivery Method Room Air Intake Visit Reasons: Asthma-COPD overlap Rehabilitation Services Coordinator Required: Yes Rehabilitation Services Coordinator Name: Radha Arellano Reyes Allergies No Known Allergies Allergy (Verified 04/04/25 13:55) HPI HPI Asthma-COPD overlap: Details: 59-year-old gentleman, recent 60 pack-year smoker, with underlying diastolic dysfunction, now followed for moderate asthma/COPD overlap syndrome, pulmonary component to dyspnea, environmental allergies, and pulmonary nodules. He has been using Advair, Incruse, and albuterol MDI with suboptimal control of his symptoms. His Dupixent is approved and is pending. [facility] Medical History Lipoma of right shoulder Asthma-COPD overlap syndrome DKA (diabetic ketoacidosis) Acute kidney injury DJD (degenerative joint disease) Back pain Morbid obesity Umbilical hernia, incarcerated Atypical chest pain COPD (chronic obstructive pulmonary disease) Tobacco abuse disorder Hyperlipidemia HTN (hypertension) Osteoarthritis of right hip Surgical History Status post excision of lipoma (~09/02/24) History of umbilical hernia repair (~06/18/24) Status post total hip replacement, right Family History Mother Diabetes Hypertension Heart attack Father Hypertension Heart attack Social History Household Members: None Household Members Other:: rents a room in a house Housing: Apartment Housing Other:: Rents a room Are you a primary adult caregiver to a significant other at home: No Do you presently have visiting nurse or other home services: No Alcohol intake: never Patient Tobacco Use Status: Current everyday Tobacco user Tobacco use type: Cigarette Cigarettes Per Day: 5 Years Smoked: 25 e-Cigarette/Vaping Use: Never Used Second Hand Smoke Exposure: No service: No Review of Systems Const Denies daytime sleepiness, Denies excessive sweating, Denies fatigue, Denies fever(s), Denies lethargy, Denies malaise, Denies night sweats, Denies snoring and Denies weight loss Eyes Denies blurry vision and Denies itchy eyes ENT Denies nasal congestion, Denies post nasal drip, Denies sinus pain, Denies sinus pressure and Denies other ( Thrush) Card Denies chest pain, Denies pedal edema, Denies dyspnea, Denies orthopnea and Denies paroxysmal nocturnal dyspnea Resp Denies cough, Denies hemoptysis, Denies excessive phlegm production, Denies dyspnea, Denies snoring and Denies wheezing GI Denies abdominal pain and Denies heartburn Musc Denies myalgias, Denies arthralgias and Denies joint swelling Skin/Breast Denies rash Neuro Denies memory loss and Denies seizure-like activity Psych Denies abnormal sleep pattern, Denies anxiety and Denies memory loss Endo Denies excessive sweating, Denies fatigue and Denies heat intolerance Jorden/Lymph Denies easy bruising Aller/Immun Denies itchy eyes, Denies seasonal rhinorrhea and Denies wheezing Physical Exam Vital Signs: Last Vital Signs Pulse 90 04/04/25 13:52 BP 124/66 04/04/25 13:52 Pulse Ox 94 04/04/25 13:52 Oxygen Delivery Method Room Air 04/04/25 13:52 BMI result Body Mass Index 35.9 Const General: no acute distress and alert Nutritional Appearance: not obese Orientation/consciousness: Other orientation findings ( oriented) HEENT Head: Yes atraumatic Eyes General: appearance normal, both eyes and all related structures Sclerae: sclerae normal EOM: EOMs intact bilaterally Neck Neck: Yes supple Lymphatic: no lymphadenopathy noted Resp Effort & Inspection: normal respiratory effort and no use of accessory muscles Auscultation: clear to auscultation bilaterally Cardio Rate: regular rate Rhythm: regular rhythm Heart sounds: no gallops, no murmurs and no rubs Skin General skin exam: other ( warm) Extrem General: No clubbing, No cyanosis and No edema Assessment & Plan Assessment & Plan (1) Asthma-COPD overlap syndrome: Code(s): J44.89 - Other specified chronic obstructive pulmonary disease Category: Medical Plan: Suboptimal control on Advair, Incruse, and albuterol MDI. Dupixent is pending, expect improved control. (2) Environmental allergies: Code(s): Z91.09 - Other allergy status, other than to drugs and biological substances Category: Medical Plan: Expect to improve on Dupixent. (3) Personal history of nicotine dependence: Code(s): Z87.891 - Personal history of nicotine dependence Category: Medical Plan: Results of CT chest reviewed, no worrisome nodules, will refer to lung cancer screening program. Coding Level of Care Code Est Pt Level 4 (85032) Complex EM visit Add On G2211 Diagnoses Asthma-COPD overlap syndrome J44.89 Environmental allergies Z91.09 Personal history of nicotine dependence Z87.891
== END 2025-04-04 14:09 | disposition home or self-care (01) ==
LOC: HO.HPS 13:00
PROVIDERS: PCP Internal Medicine Geriatric Medicine; Visit Provider Internal Medicine Pulmonary Disease
DX: J44.89 Other specified chronic obstructive pulmonary disease (principal); Z91.09 Other allergy status, other than to drugs and biological substances; Z87.891 Personal history of nicotine dependence
CPT/HCPCS: 99214

== ENCOUNTER → 2025-04-04 12:59 | Outpatient (BNVA) | payer MEDICAID, SELFPAY | PROVIDERS: PCP Internal Medicine Geriatric Medicine; Visit Provider Internal Medicine Pulmonary Disease | DX: J44.89 Other specified chronic obstructive pulmonary disease (principal); Z91.09 Other allergy status, other than to drugs and biological substances; Z87.891 Personal history of nicotine dependence; R91.1 Solitary pulmonary nodule; R06.09 Other forms of dyspnea | CPT/HCPCS: 99212 ==

== ENCOUNTER 2025-04-06 11:06 | Outpatient (AMB) | payer MEDICAID, SELFPAY ==
--- OUTSIDE RECORDS SUMMARY | 2025-04-06 12:05 | XMS_ITS | Clinical Summary ---
Author Organization [facility] Address [address] [facility] [address] [place] [address] Phone Care Team Providers Care Sofa Back Upholsterer Name Role Phone Bib Parra MD Primary [...] file Medical Devices Not on file Insurance [facility] [place] [id number] [place] [id number] MGBHP MY CARE FAMILY ACO MGBHP MY CARE FAMILY ACO MGBHP MY CARE FAMILY ACO MGBHP MY CARE FAMILY ACO MGBHP MY CARE FAMILY ACO MGBHP MY CARE FAMILY ACO MGBHP MY CARE FAMILY ACO [facility] MY CARE FAMILY ACO Care Teams Sofa Back Upholsterer Relationship Specialty Start Date End Date Bib Parra MD [address] [place] [address] PCP - General 10/31/21 Additional Source Comments The information contained in this document represents components of the legal health record. It is not the complete legal health record.[facility]
--- OUTSIDE RECORDS SUMMARY | 2025-04-06 12:05 | XMS_ITS | Encounter Summary ---
Author Organization [employer] Address [address] [facility] 7 [place] [address] Care Team Providers Care Histotechnologist Supervisor Name Role Phone Name, Scot SEARS Primary Care Provider Puia, Alicia PharmD Unavailable Puia, Alicia PharmD Unavailable Reason for Visit * Reason Comments Med Refill Encounter Details Date Type Department Care Team (Late st Contact Info) Description 12/12/2023 Refill [facility] 230 [place], [place] [phone] Radha Foster DO [address] [place], [place] [phone] Social History Tobacco Use Types Packs/Day Years [...] Description 04/28/2025 10:30 AM EDT Office Visit [facility] [address] [place] [phone] NameScot MD 230 [place] [address] documented as of this encounter Goals Goal Patient Goal Type Associated Problems Recent Progress Patient-Stated? Author Smoking cessation General No Alicia Fuentes, PharmD documented as of this encounter Visit Diagnoses Not on filedocumented in this encounter Additional Health Concerns Assessment Noted Time PHQ-9 Depression Total Score: 9 10/24/19 24 10:30 AM EST documented as of this encounter Care Teams Histotechnologist Supervisor Relationship Specialty Start Date End Date Scot Mathews MD [address] [place] [address] PCP - General Internal Medicine 08/16/22 Alicia Fuentes, PharmD [address] [place] [address] Pharmacist Internal Medicine 12/18/22 01/30/25 Alicia Fuentes, Bob [address] [place] [address] Pharmacist Internal Medicine 07/28/24 01/30/25 Mian Gillette Architectural DraftsmanBrass Plater 12/29/23 [facility] 07/10/24 documented as of this encounter
[2025-04-06 15:09] VITALS: BP 118/72; PULSE 88; O2SAT 94
--- NOTE | 2025-04-06 15:09 | A.OFFVIS_ITS ---
Vital Signs 04/06/25 15:09 BP 118/72 Blood Pressure Location Rt brachial Position Sitting Pulse 88 Pulse Source Pulse Oximeter Pulse Oximetry (%) 94 Oxygen Delivery Method Room Air Intake Visit Reasons: Dupixent teaching Hand I Cutter Required: Yes Hand I Cutter Services: Hand I Cutter Present Hand I Cutter Name: Radha Arelalno VIRGILIO Allergies No Known Allergies Allergy (Verified 04/06/25 15:09) HPI Comments Details: Cameron is here for a Dupixent teach he was educated on hand washing, injection preparation, administration, and disposal.?Cameron was able to return demonstrate proper technique for hand washing, injection preparation, administration and disposal of needle and states he has no questions at this time. Medication Dupixent 300mg/2mL autoinjector (patient?s own meds) Loading dose of 600mg given by the patient in 2 SQ injections; injection #1 R abdomen ;? injection #2 L abdomen? Lot# [id number] expires . Patient aware his next injection is in 15 days. Nurse visit only.? [facility] Medical History Lipoma of right shoulder Asthma-COPD overlap syndrome DKA (diabetic ketoacidosis) Acute kidney injury DJD (degenerative joint disease) Back pain Morbid obesity Umbilical hernia, incarcerated Atypical chest pain COPD (chronic obstructive pulmonary disease) Tobacco abuse disorder Hyperlipidemia HTN (hypertension) Osteoarthritis of right hip Surgical History Status post excision of lipoma (~09/02/24) History of umbilical hernia repair (~06/18/24) Status post total hip replacement, right Family History Mother Diabetes Hypertension Heart attack Father Hypertension Heart attack Social History Household Members: None Household Members Other:: rents a room in a house Housing: Apartment Housing Other:: Rents a room Are you a primary live in caregiver to a significant other at home: No Do you presently have visiting nurse or other home services: No Alcohol intake: never Patient Tobacco Use Status: Current everyday Tobacco user Tobacco use type: Cigarette Cigarettes Per Day: 5 Years Smoked: 25 e-Cigarette/Vaping Use: Never Used Second Hand Smoke Exposure: No service: No Physical Exam Vital Signs: Last Vital Signs Pulse 88 04/06/25 15:09 BP 118/72 04/06/25 15:09 Pulse Ox 94 04/06/25 15:09 Oxygen Delivery Method Room Air 04/06/25 15:09 Assessment & Plan Assessment & Plan (1) Asthma-COPD overlap syndrome: Code(s): J44.89 - Other specified chronic obstructive pulmonary disease Category: Medical Plan: Dupixent teaching. Coding Level of Care Code Established Pt Est Pt Level 1 (72948) Patient Type Established Diagnoses Asthma-COPD overlap syndrome J44.89 Comment NURSE VISIT ONLY
== END 2025-04-06 11:30 | disposition home or self-care (01) ==
LOC: HO.HPS 11:06
PROVIDERS: PCP Internal Medicine Geriatric Medicine; Visit Provider Internal Medicine Pulmonary Disease
DX: J44.89 Other specified chronic obstructive pulmonary disease (principal)

== ENCOUNTER → 2025-04-06 11:06 | Outpatient (BNVA) | payer MEDICAID, SELFPAY | PROVIDERS: PCP Internal Medicine Geriatric Medicine; Visit Provider Internal Medicine Pulmonary Disease | DX: J44.89 Other specified chronic obstructive pulmonary disease (principal) | CPT/HCPCS: 99211 ==

== ENCOUNTER 2025-04-27 13:46 | Outpatient (AMB) | payer MEDICAID, SELFPAY ==
--- NOTE | 2025-04-27 13:55 | A.OFFVIS_ITS ---
Vital Signs 04/27/25 13:56 Weight 240 lb BP 128/77 Blood Pressure Location Lt brachial Position Sitting Respiration 18 Pulse 99 Pulse Source Pulse Oximeter Pulse Oximetry (%) 96 Oxygen Delivery Method Room Air Intake Visit Reasons: Back Pain Tunnel Mucker Required: Yes Allergies No Known Allergies Allergy (Verified 04/27/25 13:57) HPI Comments Details: Cameron in my office with new complaints. He reports pain in the projection of the right side of his chest, he denies pain aggravated with breathing. He reports pain increase with torso twisting. It sounds like that his pain is myofascial in nature. I will send him for physical therapy. He will come back to my office after he will complete physical therapy. Prior: Previously was planning on mild but this procedure was declined by insurance. He arrives today to discuss further treatment options. Pain today is rated as a 5/10. He would like to discuss medications with me. Last time he was prescribed methocarbamol 500 mg b.i.d. and he reports that methocarbamol helps his pain. He denies side effects. I decided to increase his methocarbamol to 750 mg b.i.d.. He agreed to try. Risks and benefits were explained if he will have new side effects he needs to report to us and we will adjust the dose back to 500 mg. He also recommended to take NSAIDs. He also recommended to quit smoking. For the purpose of the smoking cessation in relation to pain management nicotine is the compound which instigate pain sensation. It produces local tissue hypoxia by constricting local blood vessels and capillary. All of this was explained to the patient. He can try to quit smoking ?cold turkey ?or using some antidepressant medications. Patient expressed understanding. We also discussed today possibility of helping his pain with Nevro spinal cord stimulator. Nevro brochure was given to the patient. Patient agreed to go for psychological evaluation to go for Nevro trial. He continues home exercise program although he does not feel much of the improvement. Has completed physical therapy. Prior: Mr. Calderon is very pleasant 58 years old gentleman who came to my office today with complains on pain in the mid level lumbar spine. He was investigated in the past and at L4-5 level we found ligamentum flavum thickening and I offered him mild procedure. The patient returns to the office to discuss risks and benefits of the mild procedure. Risks of headache, bleeding, infection, peripheral nerve damage, spinal cord damage were discussed with the patient, those risks are very rare however can not be 100% excluded. Patient expressed understanding. He wants to proceed with L4-5 mild procedure. I will schedule him accordingly. He reports the pain in the lower back with radiation into bilateral hips and bilateral groins. He had bilateral total hip replacement in the past. He reports that his pain is aggravated with him walking. He reports that he needs to take a stop several times if he needs to pass few 100 yd distance. He reports that walking in the supermarket leaning on the cart help his pain his pain and allows him to walk for the longer distance. He was sent to MRI and results of the MRI dictated as below. He has spinal changes which might indicate on ligamentum flavum thickening and effacement of the thecal sac at L4- 5 level. Mild was offered. PENDING SALE TO [facility] Medical History (Updated 04/27/25 @ 14:11 by Conor Bravo MD) Nicotine dependence, cigarettes, uncomplicated Lipoma of right shoulder Asthma-COPD overlap syndrome DKA (diabetic ketoacidosis) Acute kidney injury DJD (degenerative joint disease) Back pain Morbid obesity Umbilical hernia, incarcerated Atypical chest pain COPD (chronic obstructive pulmonary disease) Hyperlipidemia HTN (hypertension) Osteoarthritis of right hip Surgical History Status post excision of lipoma (~09/02/24) History of umbilical hernia repair (~06/18/24) Status post total hip replacement, right Family History Mother Diabetes Hypertension Heart attack Father Hypertension Heart attack Social History Household Members: None Household Members Other:: rents a room in a house Housing: Apartment Housing Other:: Rents a room Are you a primary care manager cna to a significant other at home: No Do you presently have visiting nurse or other home services: No Alcohol intake: never Patient Tobacco Use Status: Current everyday Tobacco user Tobacco use type: Cigarette Cigarettes Per Day: 5 Years Smoked: 25 e-Cigarette/Vaping Use: Never Used Second Hand Smoke Exposure: No service: No Review of Systems Const All systems reviewed & are unremarkable except as noted in HPI and below ENT Reports Normal hearing present Neuro Reports Normal hearing present, Denies Abnormal speech present, Denies confusion and Denies Sensory deficit (Neuro) Psych Denies confusion Physical Exam Vital Signs: Last Vital Signs Pulse 99 04/27/25 13:56 Resp 18 04/27/25 13:56 BP 128/77 04/27/25 13:56 Pulse Ox 96 04/27/25 13:56 Oxygen Delivery Method Room Air 04/27/25 13:56 Const General: no acute distress and well developed; No confusion Nutritional Appearance: obese Orientation/consciousness: patient oriented x3 and No confusion Eyes General: appearance normal, both eyes and all related structures Pupils: Equal, round and reactive pupils present EOM: EOMs intact bilaterally Neck Neck: Yes full ROM Chest Other: Tenderness on palpation on the right side of the chest. Resp Effort & Inspection: normal respiratory effort, able to speak in complete sentences, normal respiratory pattern, no audible wheezes and no cough Cardio Jugular venous distension: no JVD GI Inspection: Yes normal to inspection Back/Spine/Pelvis Other: He reports no tenderness on palpation in paraspinal or spinal regions of the lumbar spine no tenderness on palpation in the projection of the sacral bone. He has no tenderness on palpation in the flanks. SLR is negative bilaterally. Alfredo test is negative bilaterally. Fourteen finger test is negative bilaterally. Stinchfield test is negative bilaterally. Flexing forward and flexing backwards are rather unremarkable and he does not report pain with those maneuvers. Neuro General: patient oriented x3, gait normal and No confusion Cranial nerves: Yes CN's II-XII intact bilaterally, Yes Equal, round and reactive pupils present, Yes Normal hearing present and Yes Ability to bilaterally elevate shoulders present Speech: No Abnormal speech present Gait exam (Neuro): Normal gait present Motor exam (neuro): 5/5 motor strength present throughout Sensory Exam: No Sensory deficit (Neuro) Extrem General: No pedal edema Psych Speech and movement: Normal speech and movement present Affect: normal affect Attitude: cooperative Thought process: Normal thought process present Thought content: Normal thought content present Insight: Good insight present (Psych) Judgement: Good judgement present (Psych) Assessment & Plan Assessment & Plan (1) Chronic pain syndrome: Code(s): G89.4 - Chronic pain syndrome Category: Medical (2) Spondylosis, lumbar, with myelopathy: Code(s): M47.16 - Other spondylosis with myelopathy, lumbar region Category: Medical (3) Spondylolisthesis, lumbar region: Code(s): M43.16 - Spondylolisthesis, lumbar region Category: Medical (4) Spinal stenosis at L4-L5 level: Code(s): M48.061 - Spinal stenosis, lumbar region without neurogenic claudication Category: Medical (5) Neurogenic claudication due to lumbar spinal stenosis: Code(s): M48.062 - Spinal stenosis, lumbar region with neurogenic claudication Category: Medical (6) Intractable low back pain: Code(s): M54.59 - Other low back pain Category: Medical (7) Myofascial pain syndrome: Code(s): M79.18 - Myalgia, other site Category: Medical Plan Does not complain on pain in the lower back today. His main complaint is pain in the right side of the chest. Most likely myofascial pain syndrome I will send him for physical therapy to treat this condition. When he will complete physical therapy and the if pain still persists I will see this patient again. Orders: Orders PT Evaluation and Treatment Today M79.18 - Myalgia, other site Coding Level of Care Code Est Pt Level 3 (18249) Diagnoses Chronic pain syndrome G89.4 Spondylosis, lumbar, with myelopathy M47.16 Spondylolisthesis, lumbar region M43.16 Spinal stenosis at L4-L5 level M48.061 Neurogenic claudication due to lumbar spinal stenosis M48.062 Intractable low back pain M54.59 Myofascial pain syndrome M79.18
[2025-04-27 13:56] VITALS: BP 128/77; PULSE 99; RESP 18; O2SAT 96
--- OUTSIDE RECORDS SUMMARY | 2025-04-27 15:56 | XMS_ITS | Encounter Summary ---
Author Organization [employer] Address [address] [facility] 7 [place] [address] Care Team Providers Care Receiving Tank Operator Name Role Phone Name, Scot SEARS Primary Care Provider Puia, Alicia PharmD Unavailable Puia, Alicia PharmD Unavailable Reason for Visit * Reason Comments Med Refill Encounter Details Date Type Department Care Team (Late st Contact Info) Description 12/12/2023 Refill [facility] 230 [place], [place] [phone] Radha Foster DO 230 [place], [place] [phone] Social History Tobacco Use Types Packs/Day Years [...] with others, in a hotel, in a longterm, living outside on the street, on a [...] Description 04/28/2025 10:30 AM EDT Office Visit [facility] [address] [place] [address] Name, MD Scot [address] [place] [address] 05/16/2025 10:00 AM EDT Medication Management [facility] [address] [place] [address] Alicia Fuentes, PharmD [address] [place] [address] documented as of this encounter Goals Goal Patient Goal Type Associated Problems Recent Progress Patient-Stated? Author Smoking cessation General No Alicia Fuentes, PharmD documented as of this encounter Visit Diagnoses Not on filedocumented in this encounter Additional Health Concerns Assessment Noted Time PHQ-9 Depression Total Score: 9 10/24/19 24 10:30 AM EST documented as of this encounter Care Teams Receiving Tank Operator Relationship Specialty Start Date End Date Name, MD Scot 230 [place] [address] PCP - General Internal Medicine 08/16/22 [place] [address] Pharmacist Internal Medicine 12/18/22 01/30/25 [place] [address] Pharmacist Internal Medicine 07/28/24 01/30/25 Mian Gillette New Order ClerkCore Winder Machine Operator 12/29/23 [facility] 07/10/24 documented as of this encounter
--- OUTSIDE RECORDS SUMMARY | 2025-04-27 15:56 | XMS_ITS | Encounter Summary ---
Author Organization [email or web address] Address [address] [facility] 7 [place] [address] Care Team Providers Care Adoption Agent Name Role Phone Name, Scot SEARS Primary Care Provider [phone] Puia, Alicia PharmD Unavailable Puia, Alicia PharmD Unavailable [phone] Reason for Visit * Reason Onset Date Comments Orders Request 12/12/2023 Encounter Details Date Type Department Care Team (Late st Contact Info) Description 12/12/2023 Telephone [facility] 230 [place], [place] [phone] Name, MD Scot 230 [place] [address] Orders Request Social History Tobacco Use Types [...] with others, in a hotel, in a mcc, living outside on the street, on a [...] Upcoming Encounters Date Type Department Care Team ([facility] st Contact Info) Description 04/28/2025 10:30 AM EDT Office Visit [facility] [address] [place] [address] [phone] NameScot MD [address] [place] [address] [place] [address] 05/16/2025 10:00 AM EDT Medication Management [facility] [place] [address] Alicia Fuentes PharmD [facility] [address] documented as of this encounter Goals Goal Patient Goal Type Associated Problems Recent Progress Patient-Stated? Author Smoking cessation General No Alicia Fuentes PharmD documented as of this encounter Visit Diagnoses Not on filedocumented in this encounter Additional Health Concerns Assessment Noted Time PHQ-9 Depression Total Score: 9 10/24/19 10:30 AM EST documented as of this encounter Care Teams Adoption Agent Relationship Specialty Start Date End Date Name, MD Scot [facility] [place] [address] PCP - General Internal Medicine 08/16/22 Alicia Fuentes PharmFarooq [facility] [place] [address] Pharmacist Internal Medicine 12/18/22 01/30/25 Alicia Fuentes PharmD [facility] [place] [address] Pharmacist Internal Medicine 07/28/24 01/30/25 Mian Gillette Break And Load OperatorWrecking Supervisor 12/29/23 [facility] 07/10/24 documented as of this encounter
--- OUTSIDE RECORDS SUMMARY | 2025-04-27 15:56 | XMS_ITS | Encounter Summary ---
Author Organization [employer] Address [address] [facility] 7t [place] [address] Care Team Providers Care Microarray Analyst Name Role Phone Name, Scot SEARS Primary Care Provider Puia, Alicia PharmD Unavailable Puia, Alicia PharmD Unavailable Reason for Visit * Reason Comments Med Refill Encounter Details Date Type Department Care Team (Late st Contact Info) Description 12/12/2023 Refill [facility] [address] [place] [address] Name, MD Scot 230 [place] [address] Tobacco use Social History Tobacco Use Types [...] Description 04/28/2025 10:30 AM EDT Office Visit [facility] [address] [place] [phone] Name, MD Scot [address] [place] [phone] 05/16/2025 10:00 AM EDT Medication Management [facility] [address] [place] [phone] Alicia Fuentes PharmD [address] [place] [phone] documented as of this encounter Goals Goal Patient Goal Type Associated Problems Recent Progress Patient-Stated? Author Smoking cessation General No Alicia Fuentes PharmD documented as of this encounter Visit Diagnoses Diagnosis Tobacco use documented in this encounter Additional Health Concerns Assessment Noted Time PHQ-9 Depression Total Score: 9 10/24/19 24 10:30 AM EST documented as of this encounter Care Teams Microarray Analyst Relationship Specialty Start Date End Date Name, MD Scot 230 [place] [address] PCP - General Internal Medicine 08/16/22 Alic[place] [address] Pharmacist Internal Medicine 12/18/22 01/30/25 Alic[place] [address] Pharmacist Internal Medicine 07/28/24 01/30/25 Mian Gillette Regional Production ManagerScrap Bunch Maker 12/29/23 [facility] 07/10/24 documented as of this encounter
--- OUTSIDE RECORDS SUMMARY | 2025-04-27 15:57 | XMS_ITS | Encounter Summary ---
Author Organization [employer] Address [address] [facility] 7t [place] [address] Care Team Providers Care Casualty Claim Adjuster Name Role Phone Name, Scot SEARS Primary Care Provider [phone] Puia, Alicia PharmD Unavailable Puia, Alicia PharmD Unavailable [phone] Reason for Visit * Reason Comments Med Refill Encounter Details Date Type Department Care Team ([facility] st Contact Info) Description 09/16/2024 Refill [facility] 230 [place], [place] [phone] Name, MD Scot 230 [place] [address] New onset type 2 diabetes mellitus (CMS/HCC) [...] the past 12 months, has t he [employer], gas, oil or water [employer] threatened to shut off services in your [...] Description 04/28/2025 10:30 AM EDT Office Visit [facility] [address] [place] [phone] Name, MD Scot [address] [place] [address] 05/16/2025 10:00 AM EDT Medication Management [facility] [address] [place] [phone] Alicia Fuentes PharmD [address] [place] [address] documented as of this encounter Goals Goal [...] documented as of this encounter Care Teams Casualty Claim Adjuster Relationship Specialty Start Date End Date Name, MD Scot [address] [place] [address] PCP - General Internal Medicine 08/16/22 Alicia Fuentes PharmD [address] [place] [address] Pharmacist Internal Medicine 12/18/22 01/30/25 Alicia Fuentes PharmD [address] [place] [address] Pharmacist Internal Medicine 07/28/24 01/30/25 Mian Gillette Childcare ProviderPipe Line Walker 12/29/23 [facility] 07/10/24 documented as of this encounter
--- OUTSIDE RECORDS SUMMARY | 2025-04-27 15:57 | XMS_ITS | Encounter Summary ---
Author Organization [employer] Address [address] [facility] 7 [place] [address] Care Team Providers Care Senior Sharepoint Architect Name Role Phone Name, Scot SEARS Primary Care Provider Puia, Alicia PharmD Unavailable [phone] Puia, Alicia PharmD Unavailable [phone] Reason for Visit * Reason Onset Date Comments Nurse Triage 01/19/2025 Encounter Details Date Type Department Care Team (Late st Contact Info) Description 01/19/2025 Telephone [facility] [address] [place], [place] [phone] Name, MD Scot [address] [place] [address] Nurse Triage Social History Tobacco Use Types [...] encounter Miscellaneous Notes * Telephone Encounter - Magdalena Kumar RN - 01/19/2025 10:05 AM EDT Triage call with [facility] foreign language interpreter , [place] [id number] Pt reports a clogged sensation in left ear with minor pain on the inside. Neg for fever. Pt reports this started 2 days ago. Pt reports drainage but, has applied ear drops and noted this after a shower. Pt is unable to describe drainage. Pt is advised to come to [facility] today open till 8pm for provider to see Pt. Pt agrees with disposition. Insurance is verified as active . Protocol Used: Ear - Congestion (Adult) Protocol-Based Disposition: See in Office or Video Visit Today Positive Triage Question: * Patient wants to be seen * All higher-acuity triage questions were negative Care Advice Discussed: * Reassurance and Education - Ear Congestion * Reasons To Call Back - Ear congestion lasts over 3 days - Ear pain or fever occurs - You become worse * Telephone Encounter - Vero Gage - 01/19/2025 9:43 AM EDT Symptom: Ear Congestion Without Pain Outcome: Schedule an appointment to be seen within 3 days Reason: This is the only possible outcome for this symptom The caller accepted this outcome. [phone] saudi arabian documented in this encounter Plan of Treatment Upcoming Encounters Date Type Department Care Team (Late st Contact Info) Description 04/28/2025 10:30 AM EDT Office Visit [facility] [address] [place] [phone] Name, MD Scot [address] [place] [address] 05/16/2025 10:00 AM EDT Medication Management [address] [address] Alicia Fuentes PharmD [address] [place] [phone] documented as of this encounter Goals Goal Patient Goal Type Associated Problems Recent Progress Patient-Stated? Author Smoking cessation General No Alicia Fuentes PharmD documented as of this encounter Visit Diagnoses Not on filedocumented in this encounter Additional Health Concerns Assessment Noted Time PHQ-9 Depression Total Score: 15 024 10:43 AM EDT documented as of this encounter Care Teams Senior Sharepoint Architect Relationship Specialty Start Date End Date Name, MD Scot [address] [place] [phone] PCP - General Internal Medicine 08/16/22 Alicia Fuentes PharmD [address] [place] [phone] Pharmacist Internal Medicine 12/18/22 01/30/25 Alicia Fuentes PharmD [address] [place] [address] [phone] Pharmacist Internal Medicine 07/28/24 01/30/25 Mian Gillette Ceo NaCommunity Health Promoter 12/29/23 [facility] 07/10/24 documented as of this encounter
--- OUTSIDE RECORDS SUMMARY | 2025-04-27 15:57 | XMS_ITS | Clinical Summary ---
Author Organization [email or web address] Address [address] [facility] 7t [place] [address] Care Team Providers Care Care Provider Name Role Phone Name, Scot SEARS Primary Care Provider [phone] Allergies No known active allergies Medications * This document contains information received from the source organization and may not represent a complete record from that organization. Blood Pressure Monitoring (Omron 3 Series BP Monitor) deviceIndication s:Primary hypertension 1 each by Other route Once daily. USE TO CHECK BLOOD PRESSURE EVERY DAY, CALL MD IF > 170/100 1 each 10/06/19 24 Active Umeclidinium [place] (Incruse Ellipta) 62.5 MCG/ACT aerosol powder Inhale 1 each in the morning. 1 each 11 10/15/19 24 Active omeprazole (PriLOSEC) [address] capsule Take 40 mg by mouth in the morning. 03/25/20 24 Active methocarbamol (Robaxin) 750 MG tablet Take 1 tablet by mouth if needed in the morning, at noon, and at bedtime (pain). 06/09/20 24 Active aspirin 81 MG chewable tabletIndication s:New onset type 2 diabetes mellitus (CMS/HCC) Chew 1 tablet (81 mg) Once per day. 30 tablet 11 07/21/20 24 025 Active albuterol (Ventolin HFA) 108 (90 Base) MCG/ACT inhalerIndicatio ns:Suspected chronic obstructive pulmonary disease based on initial evaluation (CMS/HCC) INHALE 1 TO 2 PUFFS FOUR TIMES DAILY NEEDED FOR WHEEZING OR SHORTNESS OF BREATH 18 g 2 07/21/20 24 Active Advair Diskus 500-50 MCG/ACT aerosol powder INHALE 1 PUFF TWICE DAILY. RINSE MOUTH AFTER USING. 07/09/20 24 Active Continuous Glucose Fire Eater (FreeStyle Neel 3 [place]) deviceIndication s:New onset type 2 diabetes mellitus (CMS/HCC) 1 each Once per day. Use as directed for CGM 1 each 10/29/19 25 Active fluticasone (Flonase) 50 MCG/ACT nasal spray INSTILL 2 SPRAYS IN EACH NOSTRIL ONCE DAILY 48 g 01/07/20 25 Active hydrOXYzine pamoate (Vistaril) 25 MG capsule TAKE 1 CAPSULE BY MOUTH AT BEDTIME NEEDED FOR ITCHING 30 capsule 2 01/29/20 25 Active furosemide (Lasix) 80 MG tablet Take 80 mg by mouth in the morning. 12/15/19 25 Active Alcohol Swabs (Alcohol Prep) 70 % pads Use up to three times daily before insulin injections & BG testing, as directed 100 each 02/01/20 25 Active empagliflozin (Jardiance) 10 MGIndications:Ne w onset type 2 diabetes mellitus (CMS/HCC) Take 1 tablet (10 mg) by mouth Once per day. 30 tablet 02/01/20 25 Active TRUEplus Lancets 33G miscIndications: New onset type 2 diabetes mellitus (CMS/HCC) Use to test blood sugar 2 time(s) daily 100 each 02/01/20 25 Active Continuous Glucose Sensor (FreeStyle Neel 3 Plus Sensor) miscIndications: New onset type 2 diabetes mellitus (CMS/HCC) Apply 1 every 15 days as directed for CGM 2 each 02/01/20 25 Active glucose blood (FreeStyle Precision Luis Alberto Test) test stripIndications :New onset type 2 diabetes mellitus (CMS/HCC) Use to test blood sugar up to 2 times daily, as directed 100 each 02/01/20 25 Active atorvastatin (Lipitor) 80 MG tablet Take 1 tablet (80 mg) by mouth Once per day. 90 tablet 02/01/20 25 Active glucagon (Baqsimi Two Pack) 3 MG/DOSE nasal powderIndication s:New onset type 2 diabetes mellitus (CMS/HCC) Administer 3 mg via 1 device into the nostril for hypoglycemia with loss of consciousness. If no response after 15 minutes administer an additional dose via 2nd device into other nostril. 2 each 1 02/01/20 25 Active Trulicity 1.5 MG/0.5ML solution auto-injector INJECT ONE PEN (=1.5MG) SUBCUTANEOUSLY ONCE A WEEK DIRECTED 2 mL 2 02/18/20 25 Active carboxymethylcel lulose (Refresh Tears) 0.5 % ophthalmic solution Administer 1 drop into both eyes if needed in the morning, at noon, and at bedtime for dry eyes. 15 mL 11 03/03/20 25 026 Active Active Problems Problem Noted Date Diagnosed Date Dental calculus 02/08/2025 Impacted cerumen 09/19/2024 Assessment & Plan (09/19/2024 [...] and consideration for hypoglycemia risk. Referred to CD program, spoke with [facility] pharmacist who plans to f/u [...] intervention , [facility], and Patient to reach out to [facility] as needed Severe anxiety 10/24/2023 Status post [...] Encounters Date Type Department Care Team Description 04/27/2025 Telephone [facility] MED & PEDS [address] [place] [address] Scot Mathews MD Chart Prep 04/19/2025 Telephone [facility] [address] [place] [address] Scot Mathews MD Appointment Request 03/30/2025 2:15 PM EDT Office Visit [facility] OPTOMET[facility] [address] [place] [address] Hattie Wilson, OD Presbyopia (Primary Dx) 03/30/2025 Travel 03/03/2025 2:00 PM EDT Office Visit [facility] OPT[facility] [address] [place] [address] Germania Victoria, OD Type 2 diabetes mellitus without ophthalmic manifestations ([facility]) (Primary Dx); Macular scar of right eye; Dry eyes; Anisocoria; Presbyopia 03/03/2025 Travel 02/17/2025 Refill [facility] [address] [place] [address] Scot Mathews MD 02/09/2025 Patient Outreach [facility] [address] [place] [address] Scot Mathews MD Care Coordination ([facility] outreach for SDOH PT-1 and food needs-referral completed /) 02/09/2025 Telephone [facility] [address] [place] [address] Scot Mathews MD PT1 02/08/2025 10:00 AM EDT Office Visit [facility] ADULT DENTAL [address] [place] [address] CharleenBeba Dental plaque (Primary Dx); Dental calculus 02/05/2025 10:40 AM EDT Office Visit [facility] [address] [place] [phone] Aguila Deutsch MD Acute bronchitis, unspecified organism (Primary Dx); Viral URI with cough 02/01/2025 Telephone [facility] [address] [place] [address] Scot Mathews MD Appointment Request 01/31/2025 Travel 01/28/[address] [address] Jena Givens [place] 01/28/2025 Refill [facility] [address] [place] [address] Scot Mathews MD from Last 3 Months Immunizations Immunization Administration Dates Next Due HepB-CpG 01/21/2023,12/18/2022 Influenza [...] Tobacco: Never Tobacco Cessation:Ready to Q uit: No; Counseling Given: Yes Alcohol Use Standard Drinks/Week [...] Reading Time Taken Comments Blood Pressure 132/78 02/08/2025 9:49 AM EDT Pulse 73 02/08/2025 9:49 AM EDT Temperature 35.9 C (96.7 F) 02/05/2025 10:36 AM EDT Respiratory Rate 16 02/05/2025 10:36 AM EDT Oxygen Saturation 95% 02/05/2025 10:36 AM EDT Inhaled Oxygen Concentration - - Weight 104 kg (230 lb) 02/05/2025 10:36 AM EDT Height 177.8 cm (5' 10 ) 02/05/2025 10:36 AM EDT Body Mass Index 33 02/05/2025 10:36 AM EDT Plan of Treatment Upcoming Encounters Date Type Department Care Team (Late st Contact Info) Description 04/28/2025 10:30 AM EDT Office Visit [facility] [address] [place] [address] Name, MD Scot [address] [place] [address] 05/16/2025 10:00 AM EDT Medication Management [facility] [address] [place] [address] PuiaAlicia, PharmD [address] [place] [address] Health Maintenance Due Date Last Done Comments CT Colonography 1965 Colonoscopy 1965 Colorectal Cancer Screening 1965 Dental Prophylaxis 1965 FIT DNA/Cologuard 1965 FIT 1965 FOBT 1965 Sigmoidoscopy 1965 Disability Screening 1965 Diabetes: Foot Exam 1975 Dental X-Ray: Bitewings 08/31/2023 08/30/2022 Depression Monitoring 10/28/2024 04/30/2024, 024 Influenza Vaccine (#1) 2025 , 05/14/2023, 06/06/2022 Alcohol/Substance Use Screening 07/21/2025 07/21/2024 Diabetes: Urine Protein Screening 07/30/2025 07/30/2024 Diabetes: Hemoglobin A1C 08/02/2025 025, 09/10/2024, 07/21/2024, Additional history exists Dental Oral Exam 08/11/2025 02/08/2025, 08/30/2022 Dental X-Ray: Full Mouth 08/31/2025 08/30/2022 SDOH Screening 09/10/2025 09/10/2024 Lipid Panel 11/05/2025 11/05/2024, 12/0 01/2024, 02/18/2023, Additional history exists Tobacco Screening 02/08/2026 02/08/2025 Eye Exam 03/03/2027 03/03/2025, 07/, 03/03/2025, Additional history exists DTaP/Tdap/Td Vaccines (2 - Td or Tdap) 12/18/2032 12/18/2022 RSV Patients and Patients Aged 60 years or older (1 - 1-dose 75+ series) 2040 Pneumococcal Vaccine: 50+ Years Completed 12/18/2022 Hepatitis B Vaccines Completed 01/21/2023, 12/19/19 23 Zoster Vaccines Completed 02/26/2023, 12/18/2022 HIV Screening Completed 11/05/2023 Hepatitis C Screening Completed 11/05/2023 COVID-19 Vaccine Completed 09/24/2024, 09/2022, 12/25/2022, Additional history exists HIB Vaccines Aged Out No longer eligi [...] patient's age to complete this topic Meningococcal B Vaccine Aged Out No l onger eligible based on patient's age to complete [...] Smoking cessation General No Puia, Alicia, PharmD Procedures Procedure Name Priority Date/Time Associated Diagnosis Comments FUNDUS PHOTOS - OU - BOTH EYES Routine 03/03/2025 4:06 PM EDT Dry eyes PERIODIC ORAL EVALUATION - ESTABLISHED PATIENT Routine 02/08/2025 10:00 AM EDT POCT INFLUENZA B Routine 02/05/2025 10:4 9 AM EDT Viral URI with cough POCT INFLUENZA A Routine 02/05/2025 10:4 9 AM EDT Viral URI with cough POCT COVID-19 AG ANTOINE ID NOW Routine 02/05/2025 10:43 AM EDT Viral URI with cough POCT RAPID STREP A Routine 02/05/2025 10 :43 AM EDT Viral URI with cough POCT GLYCATED HEMOGLOBIN, TOTAL Routine 01/31/2025 10:20 AM EDT Type 2 diabetes mellitus with hypoglycemia without coma, unspecified whether intermediate card tender insulin use (CMS/HCC) LIPID PANEL, STANDARD Routine 11/05/2024 11:35 AM EDT ALBUMIN, RANDOM URINE W/CREATININE Routine 07/30/2024 4:03 PM EST New onset type 2 diabetes mellitus (CMS/HCC) HEPATITIS C ANTIBODY Routine 11/05/2023 8:18 AM EDT Need for hepatitis C screening test HIV 1/2 ANTIGEN/ANTIBODY, FOURTH GENERATION W/RFL Routine 11/05/2023 8:18 AM EDT Encounter for screening for HIV INTRAORAL - COMPLETE SERIES OF RADIOGRAPHIC IMAGES Routine 08/30/2022 8:00 AM EST from Last 3 Months or Most Recently Relevant to Health Maintenance Results * Fundus Photos - OU - Both Eyes (03/03/2025 4:06 PM EDT) Germania Abrams, OD - 03/03/2025 4:06 PM EDT FUNDUS PHOTO INTERPRETATION Fundus Photo Interpretation Report Test Details: OD: 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 No evidence of diabetic retinopathy or diabetic macular edema. OS: Mild focal drusen/retinal pigment epithelium (RPE) defects superior macula. No evidence of diabetic retinopathy or diabetic macular edema. Comments: Reduced vision right eye (OD) lonstanding due to large macula scar. Stable to prior exams. Recommend annual exam for monocular status. Monitor at [facility] in 1 year. Patient states his understanding of findings and management plan. Germania Ryaubrey OD OPHTH PHOTOGRAPHY Final Result * POCT Influenza B manually resulted (02/05/2025 10:49 AM EDT) Rapid Influenza B Ag Negative Negative, Indeterminate QC Media Lot # [id number] Lot# Expiration Date Swab 02/05/2025 10:4 9 AM EDT Aguila Deutsch MD POINT OF CARE TEST ENTER/EDIT OR DERABLES Final Result * POCT Influenza A manually resulted (02/05/2025 10:49 AM EDT) Rapid Influenza A Ag Negative Negative, Indeterminate QC Media Lot # [id number] Lot# Expiration Date Swab Nasopharyngeal structure / Unknown 02/05/2025 10:49 AM EDT Aguila Deutsch MD POINT OF CARE TEST ENTER/EDIT OR DERABLES Final Result * POCT COVID-19 Ag Antoine ID NOW (02/05/2025 10:43 AM EDT) Coronavirus Antigen PCR Negative Negative, Indeterminate, None Detected, Invalid, Specimen unsatisfactory for evaluation, Weakly Positive, 2+ QC Media Lot # [id number] Lot# Expiration Date Swab 02/05/2025 10:4 3 AM EDT Aguila Deutsch MD POINT OF CARE TEST ENTER/EDIT OR DERABLES Final Result * POCT rapid strep A manually resulted (02/05/2025 10:43 AM EDT) Pathologist [facility] Rapid Strep A Screen Negative Negative, None Detected QC Media Lot # [id number] Lot# Expiration Date Swab 02/05/2025 10:4 3 AM EDT Aguila Deutsch MD POINT OF CARE TEST ENTER/EDIT OR DERABLES Final Result * POCT HGB A1C (01/31/2025 10:20 AM EDT) Pathologist [facility] Hemoglobin A1C 5.6 4.0 - 6.0 % QC Media Lot # [id number] Blood 01/31/2025 10:2 0 AM EDT Scot Mathews MD POINT OF CARE TEST ENTER/EDIT OR DERABLES Final Result * (ABNORMAL) Lipid Panel, Standard (11/05/2024 11:35 AM EDT) Pathologist [facility] Triglycerides 278(H) <150 mg/dL [facility] Comment:Desirable Triglyceri de: less than 150 mg/dLBorderline High Triglyceride 150-199 mg/dLHigh Triglyceride: 200-499 mg/dLVery High Triglyceride: greater than or equal to 5OO mg/dL Cholesterol 189 <200 mg/dL [facility] Comment:Desirable Cholestero l: less than 200 mg/dLBorderline High Cholesterol: 200-239 mg/dLHigh Cholesterol: greater than 239 mg/dL LDL Cholesterol Calculated 101(H) <100 mg/dL [facility] Comment:Desirable LDL: less than 100 mg/dLNear Optimal/Above Optimal LDL: 110- 129 mg/dLBorderline High LDL: 130-159 mg/dLHigh LDL: 160-189 mg/dLVery High LDL: greater than or equal to 190 mg/dL HDL Cholesterol 33(L) >40 mg/dL [facility] Comment:Desirable HDL: great er than 40 mg/dL Note: This HDL assay may give artificially low results in patients with liver disease. 11/05/2024 11:3 5 AM EDT 11/05/2024 1:32 PM EDT Scot Mathews MD LAB BLOOD ORDERABLES Final Resul t Performing Organization Address [facility] Co de Phone Number [facility] [address] [place] [phone] * Albumin, Random Urine W/Creatinine (07/30/2024 4:03 PM EST) Creatinine, Urine 122.34 mg/dL [facility] Microalbumin Urine 14.0 mg/L [facility] Microalbum Creatinine Ratio Ur 11.4 <30 ug/mg cr [facility] Comment:Albumin/Creatinine R atio Reference Ranges: Normal: < 30 ug/mg creatinine Microalbuminuria: 30 - 300 ug/mg creatinineClinical Albuminuria: > 300 ug/mg creatinine Urine (Urine, Random) 07/30/2024 4:03 PM EST 07/30/2024 5:39 PM EST Lexi North NP LAB URINE ORDERABLES Final Resul t Performing Organization Address [facility] Co de Phone Number [facility] [address] [place] [phone] * Hepatitis C Ab (11/05/2023 8:18 AM EDT) Hepatitis C Antibody Nonreactive Nonreactive [facility] Comment:Antibodies to HCV no t detected; does not exclude early acuteHCV infection. Blood Venous blood specimen / Unknown 11/05/2023 8:18 AM EDT 11/05/2023 11:14 AM EDT Scot Mathews MD LAB BLOOD ORDERABLES Final Resul t Performing Organization Address [facility] Co de Phone Number [facility] [address] [place] [phone] * HIV-1/2 Antigen and Antibodies, Fourth Generation, with Reflexes (11/05/2023 8:18 AM EDT) HIV AB/AG Nonreactive Nonreactive [facility] Comment:HIV-1 p24 Ag and/or HIV-1/HIV-2 Ab not detected.A test result that is nonreactive does not exclude thepossibility of exposure to or infection with HIV-1 and/orHIV-2. Nonreactive results in this assay for individualswith prior exposure to HIV-1 and/or HIV-2 may be due toantigen and antibody levels that are below the limit ofdetection of this assay.The [employer] Culture HIV Ag/Ab Combo assay result andsupplemental assay [...] Resul t [facility] [address] [place] [address] [phone] from Last 3 Months or Most Recently Relevant to Health Maintenance Insurance [facility] C[place] AD[place] Care Teams Care Provider Relationship Specialty Start Date End Date Name, MD Scot [address] [place] [address] PCP - General Internal Medicine 08/16/22 Mian Gillette Trousseau ConsultantLandscape Engineer 12/29/23 [facility] 07/10/24
--- OUTSIDE RECORDS SUMMARY | 2025-04-27 15:57 | XMS_ITS | Encounter Summary ---
Author Organization [employer] Address [address] [facility] 7 [place] [address] Care Team Providers Care Program Dir Name Role Phone Name, Scot SEARS Primary Care Provider Puia, Alicia PharmD Unavailable [phone] Puia, Alicia PharmD Unavailable [phone] Reason for Visit * Reason Onset Date Comments Med Refill 07/14/2023 Encounter Details Date Type Department Care Team (Late st Contact Info) Description 07/14/2023 Telephone [facility] MEDICINE [address] [place], [place] [phone] Name, MD Scot [address] [place] [address] Med Refill Social History Tobacco Use Types [...] 11:00 AM EST Medication was sent to [facility] on 02/14/23 with 11 refills. * Telephone Encounter - Luis Faulkner - 07/14/2023 10:51 AM EST Tc from pt requesting a refill for Umeclidinium [place] (Incruse Ellipta) 62.5 MCG/ACT aerosol powder. documented in this encounter Plan of Treatment Upcoming Encounters Date Type Department Care Team (Late st Contact Info) Description 04/28/2025 10:30 AM EDT Office Visit [facility] MEDICINE [address] [place] [address] Name, MD Scot [address] [place] [address] 05/16/2025 10:00 AM EDT Medication Management [facility] MEDICINE [address] [place] [address] PuiaAlicia PharmD [address] [place] [address] documented as of this encounter Goals Goal Patient Goal Type Associated Problems Recent Progress Patient-Stated? Author Smoking cessation General No Alicia Fuentes, Bob documented as of this encounter Visit Diagnoses Not on filedocumented in this encounter Additional Health Concerns Assessment Noted Time PHQ-9 Depression Total Score: 0 08/16/20 22 9:25 AM EST documented as of this encounter Care Teams Program Dir Relationship Specialty Start Date End Date Name, MD Scot [address] [place] [address] PCP - General Internal Medicine 08/16/22 Alicia Fuentes PharmD [address] [place] [address] Pharmacist Internal Medicine 12/18/22 01/30/25 Alicia Fuentes PharmD [address] [place] [address] Pharmacist Internal Medicine 07/28/24 01/30/25 Mian Gillette Complex ManagerSafety Officer 12/29/23 [facility] 07/10/24 documented as of this encounter
--- OUTSIDE RECORDS SUMMARY | 2025-04-27 15:57 | XMS_ITS | Encounter Summary ---
Author Organization [employer] Address [address] [facility] 7 [place] [address] Care Team Providers Care Hand Profiler Name Role Phone Name, Scot SEARS Primary Care Provider [phone] Puia, Alicia PharmD Unavailable [phone] Puia, Alicia PharmD Unavailable [phone] Reason for Visit * Reason Onset Date Comments Appointment Request 03/18/2023 Encounter Details Date Type Department Care Team (Late st Contact Info) Description 03/18/2023 Telephone [facility] MEDICINE [address] [place], [place] [phone] Name, MD Scot [address] [place] [address] Appointment Request Social History Tobacco Use Types [...] recent chest scans. Please contact pt at [phone] (Macedonian) documented in this encounter Plan of Treatment Upcoming Encounters Date Type Department Care Team (Late st Contact Info) Description 04/28/2025 10:30 AM EDT Office Visit [facility] MEDICINE [address] [place] [address] Name, MD Scot [address] [place] [address] 05/16/2025 10:00 AM EDT Medication Management [address] [address] Alicia Fuentes, PharmD [address] [place] [address] documented as of this encounter Goals Goal Patient Goal Type Associated Problems Recent Progress Patient-Stated? Author Smoking cessation General No Alicia Fuentes, PharmD documented as of this encounter Visit Diagnoses Not on filedocumented in this encounter Additional Health Concerns Assessment Noted Time PHQ-9 Depression Total Score: 0 08/16/20 22 9:25 AM EST documented as of this encounter Care Teams Hand Profiler Relationship Specialty Start Date End Date Name, MD Scot [address] [place] [address] PCP - General Internal Medicine 08/16/22 Alicia Fuentes, PharmD [address] [place] [phone] Pharmacist Internal Medicine 12/18/22 01/30/25 Alicia Fuentes, Bob [address] [place] [address] Pharmacist Internal Medicine 07/28/24 01/30/25 Mian Gillette Supervisor [employer] PlantTechnical Marketing Consultant 12/29/23 [facility] 07/10/24 documented as of this encounter
--- OUTSIDE RECORDS SUMMARY | 2025-04-27 15:57 | XMS_ITS | Encounter Summary ---
Author Organization [employer] Address 75 [facility] 7t [place] [address] Care Team Providers Care Metal Treater Name Role Phone Name, Scot SEARS Primary Care Provider Puia, Alicia PharmD Unavailable [phone] Puia, Alicia PharmD Unavailable [phone] Encounter Details Date Type Department Care Team (Late st Contact Info) Description 07/14/2023 Telephone [facility] [address] [place], [place] [phone] Name, MD Scot [address] [place] [address] Social History Tobacco Use Types Packs/Day Years [...] EDT Office Visit [facility] [address] [place] [address] NameScot MD [address] [place] [address] 05/16/2025 10:00 AM EDT Medication Management [address] [address] Alicia Fuentes, PharmD [address] [place] [address] documented as of this encounter Goals Goal Patient Goal Type Associated Problems Recent Progress Patient-Stated? Author Smoking cessation General No Alicia Fuentes, PharmD documented as of this encounter Visit Diagnoses Not on filedocumented in this encounter Additional Health Concerns Assessment Noted Time PHQ-9 Depression Total Score: 0 08/16/20 22 9:25 AM EST documented as of this encounter Care Teams Metal Treater Relationship Specialty Start Date End Date Scot Mathews MD [address] [place] [address] PCP - General Internal Medicine 08/16/22 Alicia Fuentes, PharmD [address] [place] [address] Pharmacist Internal Medicine 12/18/22 01/30/25 Alicia Fuentes, Bob [address] [place] [address] Pharmacist Internal Medicine 07/28/24 01/30/25 Mian Gillette Food Sales ClerkClient Application Support Engineer 12/29/23 [facility] 07/10/24 documented as of this encounter
--- OUTSIDE RECORDS SUMMARY | 2025-04-27 15:57 | XMS_ITS | Encounter Summary ---
Author Organization [employer] Address 75 [facility] 7 [place] [address] Care Team Providers Care Architecture Instructor Name Role Phone Name, Scot SEARS Primary Care Provider [phone] Puia, Alicia PharmD Unavailable Puia, Alicia PharmD Unavailable [phone] Reason for Visit * Reason Onset Date Comments PT1 03/02/2024 Encounter Details Date Type Department Care Team (Late st Contact Info) Description 03/02/2024 Telephone [facility] [address] [place], [place] [phone] Name, MD Scot 230 [place] [address] PT1 Social History Tobacco Use Types Packs/Day [...] Yes Provider name or facility name: [facility] Facility Address: [address] [place] [address] [address] [place], [place] [id number] [place] [address] Escort needed: Y/N: No Do you have a wheelchair: Y/N: No If yes- Manual or electric: no Visits: 3 a month documented in this encounter Plan of Treatment Upcoming Encounters Date Type Department Care Team ([facility] st Contact Info) Description 04/28/2025 10:30 AM EDT Office Visit [facility] [address] [place] [address] Name, MD Scot [address] [place] [address] 05/16/2025 10:00 AM EDT Medication Management [facility] [address] [place] [address] Alicia Fuentes PharmD [address] [place] [address] documented as of this encounter Goals Goal Patient Goal Type Associated Problems Recent Progress Patient-Stated? Author Smoking cessation General No Alicia Fuentes, Bob documented as of this encounter Visit Diagnoses Not on filedocumented in this encounter Additional Health Concerns Assessment Noted Time PHQ-9 Depression Total Score: 9 10/24/19 10:30 AM EST documented as of this encounter Care Teams Architecture Instructor Relationship Specialty Start Date End Date Name, MD Scot [address] [place] [address] PCP - General Internal Medicine 08/16/22 Alicia Fuentes PharmD [address] [place] [address] Pharmacist Internal Medicine 12/18/22 01/30/25 Alicia Fuentes PharmD [address] [place] [address] Pharmacist Internal Medicine 07/28/24 01/30/25 Mian Gillette Gas Line RepairerSleeve Fixer 12/29/23 [facility] 07/10/24 documented as of this encounter
--- OUTSIDE RECORDS SUMMARY | 2025-04-27 15:57 | XMS_ITS | Encounter Summary ---
Author Organization [employer] Address 75 [facility] 7t [place] [address] Care Team Providers Care Academic Records Specialist Name Role Phone Name, Scot SEARS Primary Care Provider [phone] Puia, Alicia PharmD Unavailable Puia, Alicia PharmD Unavailable [phone] Encounter Details Date Type Department Care Team (Late st Contact Info) Description 11/21/2022 Telephone [facility] 230 [place], [place] [phone] Name, MD Scot 230 [place], [place] [phone] Social History Tobacco Use Types Packs/Day Years [...] Description 04/28/2025 10:30 AM EDT Office Visit [facility] [place] [address] Name, [place] [address] 05/16/2025 10:00 AM EDT Medication Management [facility] [place] [address] [place] [address] documented as of this encounter Visit Diagnoses Not on filedocumented in this encounter Additional Health Concerns Assessment Noted Time PHQ-9 Depression Total Score: 0 08/16/20 9:25 AM EST documented as of this encounter Care Teams Academic Records Specialist Relationship Specialty Start Date End Date [place], [place] [address] PCP - General Internal Medicine 08/16/22 [place] [address] Pharmacist Internal Medicine 12/18/22 01/30/25 [place] [address] Pharmacist Internal Medicine 07/28/24 01/30/25 Mian Gillette Pega DeveloperHockey Scout 12/29/23 [facility] 07/10/24 documented as of this encounter
--- OUTSIDE RECORDS SUMMARY | 2025-04-27 15:57 | XMS_ITS | Encounter Summary ---
Author Organization [employer] Address 75 [facility] 7 [place] [address] Care Team Providers Care Knife Blade Polisher Name Role Phone Name, Scot SEARS Primary Care Provider [phone] Reason for Visit * Reason Onset Date Comments PT1 02/09/2025 Encounter Details Date Type Department Care Team ([facility] st Contact Info) Description 02/09/2025 Telephone [facility] 230 [place] [address] Name, MD Scot 230 [place] [address] PT1 Social History Tobacco Use Types Packs/Day [...] your housing situation today? I have gisella sing 09/10/[address] you li [...] encounter Miscellaneous Notes * Telephone Encounter - Vero Gage - 02/09/2025 9:59 AM EDT Patient calling requesting PT1 Home Address verified: Y/N: Yes Provider name or facility name: [facility] - [address] [facility] [address]. Escort needed: Y/N: No Do you have a wheelchair: Y/N: No If yes- Manual or electric: N/A Visits: (3x monthly) Patient calling requesting PT1 Home Address verified: Y/N: Yes Provider name or facility name: [facility] - [address] [place] [address]. Escort needed: Y/N: No Do you have a wheelchair: Y/N: No If yes- Manual or electric: N/A Visits: (2x monthly) Patient calling requesting PT1 Home Address verified: Y/N: Yes Provider name or facility name: [address] [place] [address] [place] [address]. Escort needed: Y/N: No Do you have a wheelchair: Y/N: No If yes- Manual or electric: N/A Visits: (2x monthly) documented in this encounter Plan of Treatment Upcoming Encounters Date Type Department Care Team (Late st Contact Info) Description 04/28/2025 10:30 AM EDT Office Visit [facility] [place] [address] Name, MD [place] [address] 05/16/2025 10:00 AM EDT Medication Management [facility] [place] [address] Alicia Fuentes, [place] [address] documented as of this encounter Goals Goal Patient Goal Type Associated Problems Recent Progress Patient-Stated? Author Smoking cessation General No Alicia Fuentes, PharmD documented as of this encounter Visit Diagnoses Not on filedocumented in this encounter Additional Health Concerns Assessment Noted Time PHQ-9 Depression Total Score: 15 024 10:43 AM EDT documented as of this encounter Care Teams Knife Blade Polisher Relationship Specialty Start Date End Date Name, MD [place] [address] PCP - General Internal Medicine 08/16/22 Mian Gillette Machine Or Machinery MechanicTherapy Coordinator 12/29/23 [facility] 07/10/24 documented as of this encounter
--- OUTSIDE RECORDS SUMMARY | 2025-04-27 15:57 | XMS_ITS | Encounter Summary ---
Author Organization [facility] Address [address] [facility] [place] [address] Phone Care Team Providers Care Steward/Stewardess Railroad Dining Car Name Role Phone Bib Parra MD Primary Care Pro vider Encounter Details Date Type Department Care Team (Late st Contact Info) Description 10/31/[address] [facility] [place] [address] [place] [phone] Social History Tobacco Use Types Packs/Day Years Used Date Smoking Tobacco: Never Assessed Sex and Gender Information Value Date Recorded Sex Assigned at Not on file Legal Sex Male 9:12 AM EST Gender Identity Not on file Sexual Orientation Not on file documented as of this encounter Plan of Treatment Not on file documented as of this encounter Visit Diagnoses Not on filedocumented in this encounter Care Teams Steward/Stewardess Railroad Dining Car Relationship Specialty Start Date End Date Bib Parra MD [address] [place] [address] PCP - General 10/31/21 documented as of this encounter Additional Source Comments The information contained in this document represents components of the legal health record. It is not the complete legal health record.[facility]
--- OUTSIDE RECORDS SUMMARY | 2025-04-27 15:57 | XMS_ITS | Encounter Summary ---
Author Organization [employer] Address 75 [facility] 7 [place] [address] Care Team Providers Care Paraffin Plant Sweater Operator Name Role Phone Name, Scot SEARS Primary Care Provider Puia, Alicia PharmD Unavailable Puia, Alicia PharmD Unavailable [phone] Reason for Visit * Reason Comments Med Refill Encounter Details Date Type Department Care Team (Late st Contact Info) Description 10/02/2023 Refill [facility] 230 [place], [place] [phone] Name, MD Scot 230 [place] [address] Tobacco use Social History Tobacco Use Types [...] Description 04/28/2025 10:30 AM EDT Office Visit [facility] [address] [place] [address] Name, MD Scot [address] [place] [address] 05/16/2025 10:00 AM EDT Medication Management [facility] [address] [place] [address] Alicia Fuentes PharmD [address] [place] [address] documented as of this encounter Goals Goal Patient Goal Type Associated Problems Recent Progress Patient-Stated? Author Smoking cessation General No Alicia Fuentes PharmD documented as of this encounter Visit Diagnoses Diagnosis Tobacco use documented in this encounter Additional Health Concerns Assessment Noted Time PHQ-9 Depression Total Score: 9 09/12/19 24 9:23 AM EST documented as of this encounter Care Teams Paraffin Plant Sweater Operator Relationship Specialty Start Date End Date Name, MD Scot [address] [place] [address] PCP - General Internal Medicine 08/16/22 Alicia Fuentes PharmD [address] [place] [address] Pharmacist Internal Medicine 12/18/22 01/30/25 Alicia Fuentes PharmD [address] [place] [address] Pharmacist Internal Medicine 07/28/24 01/30/25 Mian Gillette Final Operations TechnicianEmployee Benefits Insurance Agent 12/29/23 [facility] 07/10/24 documented as of this encounter
--- OUTSIDE RECORDS SUMMARY | 2025-04-27 15:57 | XMS_ITS | Encounter Summary ---
Author Organization [employer] Address 75 [facility] 7 [place] [address] Care Team Providers Care Featheredge Machine Operator Name Role Phone Name, Scot SEARS Primary Care Provider [phone] Puia, Alicia PharmD Unavailable [phone] Puia, Alicia PharmD Unavailable [phone] Reason for Visit * Reason Onset Date Comments Medication Question 11/21/2022 Encounter Details Date Type Department Care Team (Late st Contact Info) Description 11/21/2022 Telephone [facility] 230 [place], [place] [phone] Name, MD Scot 230 [place] [address] Medication Question Social History Tobacco Use Types [...] Recorded In the last 10 days, have shaan youssef been in contact with someone who was confirmed or suspected to have Coronavirus/COVID-19? No / Unsure 11/22/2022 10:02 AM EDT documented as of this encounter Miscellaneous Notes * Telephone Encounter - Richard Hayes - 11/21/2022 11:52 AM EDT Tc from pt requesting status on cough medication prescribed on last visit Please contact pt at [phone] documented in this encounter Plan of Treatment Upcoming Encounters Date Type Department Care Team (Late st Contact Info) Description 04/28/2025 10:30 AM EDT Office Visit [facility] [address] [place] [address] Name, MD Scot [address] [place] [address] 05/16/2025 10:00 AM EDT Medication Management [address] [address] Alicia Fuentes PharmD [address] [place] [address] documented as of this encounter Visit Diagnoses Not on filedocumented in this encounter Additional Health Concerns Assessment Noted Time PHQ-9 Depression Total Score: 0 08/16/20 9:25 AM EST documented as of this encounter Care Teams Featheredge Machine Operator Relationship Specialty Start Date End Date NameScot MD [address] [place] [address] PCP - General Internal Medicine 08/16/22 Alicia Fuentes PharmD [address] [place] [address] Pharmacist Internal Medicine 12/18/22 01/30/25 Alicia Fuentes PharmD [address] [place] [address] [place] [address] Pharmacist Internal Medicine 07/28/24 01/30/25 Mian Gillette Tea TasterAgriculture Engineer 12/29/23 [facility] 07/10/24 documented as of this encounter
--- OUTSIDE RECORDS SUMMARY | 2025-04-27 15:57 | XMS_ITS | Encounter Summary ---
Author Organization [employer] Address [address] [facility] 7 [place] [address] Care Team Providers Care Pediatric Assistant Name Role Phone Name, Scot SEARS Primary Care Provider [phone] Reason for Visit * Reason Onset Date Comments Chart Prep 04/27/2025 Encounter Details Date Type Department Care Team ([facility] st Contact Info) Description 04/27/2025 Telephone [facility] [address] [place] [address] Name, MD Scot 230 [place] [address] Chart Prep Social History Tobacco Use Types [...] encounter Miscellaneous Notes * Telephone Encounter - Kaleb Tejada [place] - 04/27/2025 9:28 AM EDT Chart Prep Labs: done Images: done Referrals: complete Vaccines due: Flu Screenings: colonoscopy and foot exam Overdue care gaps: PHQ-9, LEROY-7, Oral health screening, and Disability screen GLU A!C needs review documented in this encounter Plan of Treatment Upcoming Encounters Date Type Department Care Team (Late st Contact Info) Description 04/28/2025 10:30 AM EDT Office Visit [facility] [address] [place] [address] Name, MD Scot [address] [place] [address] 05/16/2025 10:00 AM EDT Medication Management [facility] [address] [place] [address] Alicia Fuentes, PharmD [address] [place] [address] documented as of this encounter Goals Goal Patient Goal Type Associated Problems Recent Progress Patient-Stated? Author Smoking cessation General No Alicia Fuentes, PharmD documented as of this encounter Visit Diagnoses Not on filedocumented in this encounter Additional Health Concerns Assessment Noted Time PHQ-9 Depression Total Score: 15 024 10:43 AM EDT documented as of this encounter Care Teams Pediatric Assistant Relationship Specialty Start Date End Date Name, MD Scot [address] [place] [address] PCP - General Internal Medicine 08/16/22 Mian Gillette Virtual Customer AssistantConnection Worker 12/29/23 [facility] 07/10/24 documented as of this encounter
--- OUTSIDE RECORDS SUMMARY | 2025-04-27 15:57 | XMS_ITS | Encounter Summary ---
Author Organization [employer] Address [address] [facility] 7 [place] [address] Care Team Providers Care Supervising Film Or Videotape Editor Name Role Phone Name, Scot SEARS Primary Care Provider [phone] Puia, Alicia PharmD Unavailable [phone] Puia, Alicia PharmD Unavailable [phone] Reason for Visit * Reason Onset Date Comments Med Refill 10/19/2024 Encounter Details Date Type Department Care Team (Late st Contact Info) Description 10/19/2024 Telephone [facility] 230 [place], [place] [phone] Name, MD Scot [address] [place] [address] Med Refill Social History Tobacco Use Types [...] the past 12 months, has t he [employer], gas, oil or water [employer] threatened to shut off services in your [...] Miscellaneous Notes * Telephone Encounter - Melchor Oosrio - 10/19/2024 9:37 AM EST TC from pt requesting medication refill. Medications needing refill : Continuous Glucose Sensor (FreeStyle Neel 2 Sensor) misc To be sent to: [facility] [place], [place] - [address] [place] [address] documented in this encounter Plan of Treatment Upcoming Encounters Date Type Department Care Team (Late st Contact Info) Description 04/28/2025 10:30 AM EDT Office Visit [facility] [address] [place] [address] Name, MD Scot [address] [place] [address] 05/16/2025 10:00 AM EDT Medication Management [facility] [address] [place] [address] Alicia Fuentes, PharmD [address] [place] [address] documented as of this encounter Goals Goal Patient Goal Type Associated Problems Recent Progress Patient-Stated? Author Smoking cessation General No Alicia Fuentes PharmD documented as of this encounter Visit Diagnoses Not on filedocumented in this encounter Additional Health Concerns Assessment Noted Time PHQ-9 Depression Total Score: 15 024 10:43 AM EDT documented as of this encounter Care Teams Supervising Film Or Videotape Editor Relationship Specialty Start Date End Date Name, MD Scot [address] [place] [address] PCP - General Internal Medicine 08/16/22 Alicia Fuentes PharmD [address] [place] [address] Pharmacist Internal Medicine 12/18/22 01/30/25 Alicia Fuentes PharmD [address] [place] [address] Pharmacist Internal Medicine 07/28/24 01/30/25 Mian Gillette Ems ManagerRadial Drill Press Set Up Operator 12/29/23 [facility] 07/10/24 documented as of this encounter
--- OUTSIDE RECORDS SUMMARY | 2025-04-27 15:57 | XMS_ITS | Encounter Summary ---
Author Organization [employer] Address [address] [facility] 7 [place] [address] Care Team Providers Care Bindery Chief Name Role Phone Name, Scot SEARS Primary Care Provider [phone] Puia, Alicia PharmD Unavailable [phone] Puia, Alicia PharmD Unavailable [phone] Reason for Visit * Reason Onset Date Comments Durable Medical Equipment 08/22/2023 Encounter Details Date Type Department Care Team (Late st Contact Info) Description 08/22/2023 Telephone [facility] 230 [place], [place] [phone] Name, MD Scot [address] [place] [address] Durable Medical Equipment Social History Tobacco Use [...] on papers below. Please contact pt @ [phone] * Telephone Encounter - Lorraine Mccray - 08/22/2023 3:22 PM EST Tc from pt requesting for PCP to fill out a [facility] necessity form for a walker due to having hip surgery 08/26. 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 Please contact pt at [phone] (Latvian) documented in this encounter Plan of Treatment Upcoming Encounters Date Type Department Care Team (Late st Contact Info) Description 04/28/2025 10:30 AM EDT Office Visit [facility] [address] [place] [address] Name, MD Scot [address] [place] [address] 05/16/2025 10:00 AM EDT Medication Management [facility] [address] [place] [address] Alicia Fuentes PharmD [address] [place] [address] documented as of this encounter Goals Goal Patient Goal Type Associated Problems Recent Progress Patient-Stated? Author Smoking cessation General No Alicia Fuentes PharmD documented as of this encounter Visit Diagnoses Not on filedocumented in this encounter Additional Health Concerns Assessment Noted Time PHQ-9 Depression Total Score: 0 08/16/20 9:25 AM EST documented as of this encounter Care Teams Bindery Chief Relationship Specialty Start Date End Date Name, MD Scot [address] [place] [address] PCP - General Internal Medicine 08/16/22 Alicia Fuentes PharmD [address] [place] [address] Pharmacist Internal Medicine 12/18/22 01/30/25 Alicia Fuentes PharmD [address] [place] [address] Pharmacist Internal Medicine 07/28/24 01/30/25 Mian Gillette Qc ScientistEducational Technician 12/29/23 [facility] 07/10/24 documented as of this encounter
--- OUTSIDE RECORDS SUMMARY | 2025-04-27 15:57 | XMS_ITS | Encounter Summary ---
Author Organization [employer] Address [address] [facility] 7 [place] [address] Care Team Providers Care Cartographic Technician Name Role Phone Name, Scot SEARS Primary Care Provider Puia, Alicia PharmD Unavailable Puia, Alicia PharmD Unavailable [phone] Reason for Visit * Reason Onset Date Comments Referral 10/09/2022 Encounter Details Date Type Department Care Team (Late st Contact Info) Description 10/09/2022 Telephone [facility] 230 [place], [place] [phone] Name, MD Scot 230 [place] [address] Referral Social History Tobacco Use Types Packs/Day [...] Miscellaneous Notes * Telephone Encounter - Ryan Terrell - 10/09/2022 11:56 AM EST Tc from mom requesting a referral to be seen at the [facility] Please contact mom at [phone] documented in this encounter Plan of Treatment Upcoming Encounters Date Type Department Care Team (Late st Contact Info) Description 04/28/2025 10:30 AM EDT Office Visit [facility] [address] [place] [address] NameScot MD [address] [place] [address] 05/16/2025 10:00 AM EDT Medication Management [address] [address] Alicia Fuentes, PharmD [address] [place] [address] documented as of this encounter Visit Diagnoses Not on filedocumented in this encounter Additional Health Concerns Assessment Noted Time PHQ-9 Depression Total Score: 0 08/16/20 9:25 AM EST documented as of this encounter Care Teams Cartographic Technician Relationship Specialty Start Date End Date Scot Mathews MD [address] [place] [address] PCP - General Internal Medicine 08/16/22 Alicia Fuentes PharmD [address] [place] [address] Pharmacist Internal Medicine 12/18/22 01/30/25 Alicia Fuentes, PharmD [address] [place] [address] Pharmacist Internal Medicine 07/28/24 01/30/25 Mian Gillette Rotary DrierPlate Sensitizer 12/29/23 [facility] 07/10/24 documented as of this encounter
--- OUTSIDE RECORDS SUMMARY | 2025-04-27 15:57 | XMS_ITS | Clinical Summary ---
Author Organization [facility] Address [address] [facility] [address] [place] [address] Phone Care Team Providers Care Strap Making Machine Operator Name Role Phone Bib Parra MD [...] file Medical Devices Not on file Insurance [facility] [place] [id number] [place] [id number] M[employer] MY CARE FAMILY ACO [employer] MY CARE FAMILY ACO [employer] MY CARE FAMILY ACO [employer] MY CARE FAMILY ACO [employer] MY CARE FAMILY ACO [employer] MY CARE FAMILY ACO [employer] MY CARE FAMILY ACO [facility] MY CARE FAMILY ACO Care Teams Strap Making Machine Operator Relationship Specialty Start Date End Date Bib Parra MD [address] [place] [address] PCP - General 10/31/21 Additional Source Comments The information contained in this document represents components of the legal health record. It is not the complete legal health record.[facility]
--- OUTSIDE RECORDS SUMMARY | 2025-04-27 15:57 | XMS_ITS | Encounter Summary ---
Author Organization [employer] Address [address] [facility] 7t [place] [address] Care Team Providers Care Farm Equipment Operator Name Role Phone Name, Scot SEARS Primary Care Provider Puia, Alicia PharmD Unavailable Puia, Alicia PharmD Unavailable Reason for Visit * Reason Comments Med Refill Encounter Details Date Type Department Care Team ([facility] st Contact Info) Description 10/18/2024 Refill [facility] MEDICINE [address] [place] [address] Puia, Alicia, PharmD [address] [place] [address] New onset type 2 diabetes mellitus (CMS/HCC) [...] the past 12 months, has t he [employer], gas, oil or water [employer] threatened to shut off services in your [...] PM EST Denied. Requested in error per [facility] pharmacy team. Patient has upcoming visit with me next week documented in this encounter Plan of Treatment Upcoming Encounters Date Type Department Care Team (Late st Contact Info) Description 04/28/2025 10:30 AM EDT Office Visit [facility] MEDICINE [address] [place] [address] Name, MD Scot [address] [place] [address] 05/16/2025 10:00 AM EDT Medication Management [facility] MEDICINE [address] [place] [address] Alicia Fuentes PharmD [address] [place] [address] documented as of this encounter Goals Goal [...] documented as of this encounter Care Teams Farm Equipment Operator Relationship Specialty Start Date End Date Name, MD Scot [address] [place] [address] PCP - General Internal Medicine 08/16/22 Alicia Fuentes, Bob [address] [place] [address] Pharmacist Internal Medicine 12/18/22 01/30/25 Alicia Fuentes, Bob [address] [place] [address] Pharmacist Internal Medicine 07/28/24 01/30/25 Mian Gillette Melt House Centrifugal OperatorGem Setter 12/29/23 [facility] 07/10/24 documented as of this encounter
== END 2025-04-27 14:08 | disposition home or self-care (01) ==
LOC: HO.PMC 13:47
PROVIDERS: PCP Internal Medicine Geriatric Medicine; Visit Provider Anesthesiology
DX: G89.4 Chronic pain syndrome (principal); M47.16 Other spondylosis with myelopathy, lumbar region; M43.16 Spondylolisthesis, lumbar region; M48.061 Spinal stenosis, lumbar region without neurogenic claudication; M48.062 Spinal stenosis, lumbar region with neurogenic claudication; M54.59 Other low back pain; M79.18 Myalgia, other site
CPT/HCPCS: 99213

== ENCOUNTER → 2025-04-27 13:46 | Outpatient (BNVA) | payer MEDICAID, SELFPAY | PROVIDERS: PCP Internal Medicine Geriatric Medicine; Visit Provider Anesthesiology | DX: G89.4 Chronic pain syndrome (principal); M47.16 Other spondylosis with myelopathy, lumbar region; M43.16 Spondylolisthesis, lumbar region; M48.061 Spinal stenosis, lumbar region without neurogenic claudication; M48.062 Spinal stenosis, lumbar region with neurogenic claudication; M54.59 Other low back pain; M79.18 Myalgia, other site | CPT/HCPCS: 99212 ==

== ENCOUNTER 2025-04-28 11:05 | Outpatient (REF) | payer MEDICAID, SELFPAY ==
--- OUTSIDE RECORDS SUMMARY | 2025-04-28 10:30 | XMS_ITS | Encounter Summary ---
Author Organization [employer] Address [address] [facility] 7 [place] [address] Care Team Providers Care Diversional Therapist'S Assistant Name Role Phone Scot Mathews MD Primary Care Provider [phone] Reason for Referral * Consultation (Routine) - Pending Review Specialty Diagnoses / Procedures Referred By Irma coreas Referred To Contact Gastroenterology Diagnoses Encounter for screening for malignant neoplasm of colon Scot Mathews MD [address] [place] [address] Phone: tel: fax: Referral ID Status Reason Start Date Expiration Date Visits Requested Visits Authorized [id number] Pending Review Specialty Services Required 04/28/2025 04/28/2026 1 1 Reason for Visit * Reason Comments Follow-up Encounter Details Date Type Department Care Team (Late st Contact Info) Description 04/28/2025 10:30 AM EDT Office Visit [facility] MEDICINE [address] [place] [address] Scot Mathews MD [address] [place] [address] Type 2 diabetes mellitus with obesity (CMS/HCC) (CMS/HCC) (Primary Dx); Tobacco dependence; Encounter for screening for malignant neoplasm of colon Social History Tobacco Use Types Packs/Day Years Used Date Smoking Tobacco: Some Days Cigarettes Smokeless Tobacco: Never Tobacco Cessation:Ready to Q uit: Not Asked; Counseling Given: Not Answered Alcohol Use Standard Drinks/Week Comments Never 0 (1 standard drink = 0.6 oz pur e alcohol) Depression Answer Date Recorded Patient Health Questionnaire-9 Score 10 04/28/2025 Patient Health Questionnaire-9 Score 10 04/28/2025 Last PHQ-9: Questionnaire Data Not on file 0 04/28/2025 Housing Stability Answer Date Recorded What is [...] Date Recorded Patient Health Questionnaire-2 Score 1 04/28/2025 Internet Access Answer Date Recorded Internet Access [...] Sign Reading Time Taken Comments Blood Pressure 122/72 04/28/2025 10:37 AM EDT Pulse 88 04/28/2025 10:37 AM EDT Temperature 36.8 C (98.2 F) 04/28/2025 10:37 AM EDT Respiratory Rate 14 04/28/2025 10:37 AM EDT Oxygen Saturation 92% 04/28/2025 10:37 AM EDT Inhaled Oxygen Concentration - - Weight 106 kg (232 lb 9.6 oz) 04/28/2025 10:37 A M EDT Height 172.7 cm (5' 8 ) 04/28/2025 10:37 AM EDT Body Mass Index 35.37 04/28/2025 10:37 AM EDT documented in this encounter Functional Status * Over the past 2 weeks, how often have you been bothered by any of the following problems? Question Answer Date of Assessment Author Patient Health Questionnaire-2 Score 1 04/28/2025 10:40 AM EDT Rafy Givens MA * Little interest or pleasure in doing things Answer Date of Assessment Author Not at all 04/28/2025 10:40 AM DELANOT Jena Givens MA * Feeling down, depressed, or hopeless Answer Date of Assessment Author Several days 04/28/2025 10:40 AM DELANOT Jena Givens MA * Trouble falling or staying asleep, or sleeping too much Answer Date of Assessment Author Nearly every day 04/28/2025 10:40 AM EDJena Myers MA * Feeling tired or having little energy Answer Date of Assessment Author Several days 04/28/2025 10:40 AM Jena Sepulveda MA * Poor appetite or overeating Answer Date of Assessment Author More than half the days 04/28/2025 10:40 AM Jena Sepulveda MA * Feeling bad about yourself - or that you are a failure or have let yourself or your family down Answer Date of Assessment Author Several days 04/28/2025 10:40 AM Jena Sepulveda MA * Trouble concentrating on things, such as reading the newspaper or watching television Answer Date of Assessment Author Not at all 04/28/2025 10:40 AM Jena Sepulveda MA * Moving or speaking so slowly that other people could have noticed? Or the opposite - being so fidgety or restless that you have been moving around a lot more than usual. Answer Date of Assessment Author More than half the days 04/28/2025 10:40 AM Jena Sepulveda MA * Thoughts that you would be better off or hurting yourself in some way Answer Date of Assessment Author Not at all 04/28/2025 10:40 AM EDT Jena Givens MA * Patient Health Questionnaire-9 Score Answer Date of Assessment Author 10 04/28/2025 10:40 AM DELANOT Jena Givens MA * Over the last 2 weeks, how often have you been bothered by any of the following problems? Question Answer Date of Assessment Author Feeling nervous, anxious, or on edge 0 04/28/2025 10:40 AM EDT Grzegorz Givens MA Not being able to stop or control worrying 2 04/28/2025 10:40 AM Grzegorz Sepulveda MA Worrying too much about different things 2 04/28/2025 10:40 AM Grzegorz Sepulveda MA Trouble relaxing 0 04/28/2025 10:40 AM DELANOT Jena Givens MA Being so restless that it is hard to sit still 0 04/28/2025 10:40 AM Grzegorz Sepulveda MA Becoming easily annoyed or irritable 1 04/28/2025 10:40 AM Grzegorz Sepulveda MA Feeling afraid as if something awful might happen 1 04/28/2025 10:40 AM EDJena Myers MA LEROY-7 Total Score 6 04/28/2025 10:40 AM Jena Sepulveda MA documented as of this encounter Progress Notes * Scot Mathews MD - 04/28/2025 10:30 AM EDT Images from the original note were not included. Subjective Patient ID: Cameron Calderon is a 59 y.o. male who presents for Follow-up. Patient comes for follow-up visit and is doing very well. He does not bring his glucose meter but the blood sugar control is excellent based on hemoglobin A1c. He is not having any side effects with the Trulicity at current dose of 1.5 mg weekly, no urinary side effects on current dose of Jardiance. He does complain of frequent urination after using his Lasix and he does not seem to be fluid overloaded. I will cut his dose of Lasix in half. His breathing has improved significantly on his current inhaler regimen. 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 He continues smoking cigarettes and he is encouraged and recommended toquit. At the moment he is not ready to quit smoking. He is not interested in any medication to helphim quit smoking. He is up to date with his chest CT. Review of Systems Constitutional: Negative for chills, fatigue and fever. HENT: Negative for sore throat. Respiratory: Negative for cough, chest tightness and shortness of breath. Cardiovascular: Negative for chest pain, palpitations and leg swelling. Gastrointestinal: Negative for abdominal pain and blood in stool. Objective Vitals: 04/28/25 1037 BP: 122/72 BP Location: Left arm Patient Position: Sitting BP Cuff Size: Large adult Pulse: 88 Resp: 14 Temp: 98.2 ??F (36.8 ??C) TempSrc: Temporal SpO2: 92% Weight: 232 lb 9.6 oz (106 kg) Height: 5' 8 (1.727 m) Physical Exam Constitutional: Appearance: Normal appearance. Cardiovascular: Rate and Rhythm: Normal rate and regular rhythm. Pulses: Dorsalis pedis pulses are 1+ on the right side and 1+ on the left side. Posterior tibial pulses are 1+ on the right side and 1+ on the left side. Heart sounds: No murmur heard. Pulmonary: Effort: Pulmonary effort is normal. No respiratory distress. Breath sounds: No wheezing, rhonchi or rales. Abdominal: Palpations: Abdomen is soft. Tenderness: There is no abdominal tenderness. Musculoskeletal: Right lower leg: No edema. Left lower leg: No edema. Right foot: Normal range of motion. Left foot: Normal range of motion. Feet: Right foot: Protective Sensation: 5 sites tested. 3 sites sensed. Skin integrity: Skin integrity normal. Toenail Condition: Right toenails are abnormally thick. Left foot: Protective Sensation: 5 sites tested. 3 sites sensed. Skin integrity: Skin integrity normal. Toenail Condition: Left toenails are normal. Neurological: Mental Status: He is alert. Lab Results Component Value Date HGBA1C 5.6 01/31/2025 HGBA1C 7.8 (A) 09/10/2024 HGBA1C 13.9 (A) 07/21/2024 HGBA1C 6.5 (H) 04/30/2024 HGBA1C 5.9 (H) 11/21/2022 Lab Results Component Value Date GLUCOSE 93 09/24/2024 NA 141 09/24/2024 K 4.5 09/24/2024 CO2 26 09/24/2024 CL 105 09/24/2024 BUN 17 (H) 09/24/2024 CREATININE 0.93 09/24/2024 Albumin, Random Urine W/Creatinine Order: [id number] Status: Final result Dx: New onset type 2 diabetes mellitus (C... Test Result Released: No (inaccessible in MyChart) 0 Result Notes 1 HM Topic Component Ref Range & Units (hover) 9 mo ago Creatinine, Urine 122.34 Microalbumin Urine 14.0 Microalbum Creatinine Ratio Ur 11.4 Comment: Albumin/Creatinine Ratio Reference Ranges: Normal: < 30 ug/mg creatinine Microalbuminuria: 30 - 300 ug/mg creatinineClinical Albuminuria: > 300 ug/mg creatinine Assessment/Plan Diagnoses and all orders for this visit: Type 2 diabetes mellitus with obesity (CMS/HCC) ([facility]) Comments: Well controlled, continue current meds and avoid sweets. Check blood work listed below. Orders: - Comprehensive Metabolic Panel; Future - Albumin, Random Urine W/Creatinine; Future Tobacco dependence Comments: Patient is recommended to quit, continue on his pulmonary meds and keep following with [place] [facility] Encounter for screening for malignant neoplasm of colon Comments: I will refer him again for colonoscopy Orders: - Referral to Gastroenterology; Future Other orders - Dupilumab (Dupixent) 100 MG/0.67ML solution prefilled syringe; Inject 100 mg under the skin See administration instructions. Every 14 days prescribed at [facility] [place] ([place]) - furosemide (Lasix) 40 MG tablet; Take 1 tablet (40 mg) by mouth Once per day. Future Appointments Date Time Provider Department Center 05/16/2025 10:00 AM Alicia Fuentes PharmD MEDICINE [facility] documented in this encounter Plan of Treatment Upcoming Encounters Date Type Department Care Team (Late st Contact Info) Description 05/16/2025 10:00 AM EDT Medication Management [facility] MEDICINE [address] [place] [address] Alicia Fuentes PharmD [address] [place] [address] Scheduled Orders Name Type Priority Associated Diagnoses Orde r Schedule Comprehensive Metabolic Panel Lab Routine Type 2 diabetes mellitus with obesity (CMS/HCC) (CMS/HCC) Expected: 04/28/2025 (Approximate), Expires: 04/28/2026 Albumin, Random Urine W/Creatinine Lab Routine Type 2 diabetes mellitus with obesity (CMS/HCC) (CMS/HCC) Expected: 04/28/2025 (Approximate), Expires: 04/28/2026 Scheduled Referrals Name Type Priority Associated Diagnoses Order Schedule Referral to Gastroenterology Outpatient Referral Routine Encounter for screening for malignant neoplasm of colon Expected: 04/28/2025 (Approximate), Expires: 04/28/2026 documented as of this encounter Goals Goal Patient Goal Type Associated Problems Recent Progress Patient-Stated? Author Smoking cessation General No Alicia Fuentes, Bob documented as of this encounter Visit Diagnoses Diagnosis Type 2 diabetes mellitus with obesity (CMS/HCC) (CMS/HCC)- Primary Tobacco dependence Tobacco use disorder Encounter for screening for malignant neoplasm of colon documented in this encounter Additional Health Concerns Assessment Noted Time PHQ-9 Depression Total Score: 10 025 10:40 AM EDT documented as of this encounter Care Teams Diversional Therapist'S Assistant Relationship Specialty Start Date End Date Name, MD Scot [address] [place] [address] PCP - General Internal Medicine 08/16/22 Mian Gillette Goat DriverAmr Physician 12/29/23 [facility] 07/10/24 documented as of this encounter
--- OUTSIDE RECORDS SUMMARY | 2025-04-28 12:43 | XMS_ITS | Encounter Summary ---
Author Organization [employer] Address [address] [facility] 7 [place] [address] Care Team Providers Care Contour Path Tape Mill Operator Name Role Phone Name, Scot SEARS Primary Care Provider Puia, Alicia PharmD Unavailable Puia, Alicia PharmD Unavailable [phone] Reason for Visit * Reason Comments Med Refill Encounter Details Date Type Department Care Team (Late st Contact Info) Description 10/02/2023 Refill [facility] MEDICINE [address] [place], [place] [phone] Name, MD Scot [address] [place] [address] Tobacco use Social History Tobacco Use Types [...] Description 05/16/2025 10:00 AM EDT Medication Management [facility] MEDICINE [address] [place] [address] Alicia Fuentes PharmD [address] [place] [address] documented as of this encounter Goals Goal Patient Goal Type Associated Problems Recent Progress Patient-Stated? Author Smoking cessation General No Alicia Fuentes, PharmD documented as of this encounter Visit Diagnoses Diagnosis Tobacco use documented in this encounter Additional Health Concerns Assessment Noted Time PHQ-9 Depression Total Score: 9 09/12/19 24 9:23 AM EST documented as of this encounter Care Teams Contour Path Tape Mill Operator Relationship Specialty Start Date End Date Name, MD Scot [address] [place] [address] PCP - General Internal Medicine 08/16/22 Alicia Fuentes, PharmD [address] [place] [address] Pharmacist Internal Medicine 12/18/22 01/30/25 Alicia Fuentes, Bob [address] [place] [address] Pharmacist Internal Medicine 07/28/24 01/30/25 Mian Gillette Materials And Corrosion EngineerDirector Writing 12/29/23 [facility] 07/10/24 documented as of this encounter
--- OUTSIDE RECORDS SUMMARY | 2025-04-28 12:43 | XMS_ITS | Encounter Summary ---
Author Organization [employer] Address [address] [facility] 7 [place] [address] Care Team Providers Care Music Education Adjunct Professor Name Role Phone Name, Scot SEARS Primary Care Provider [phone] Puia, Alicia PharmD Unavailable [phone] Puia, Alicia PharmD Unavailable [phone] Reason for Visit * Reason Onset Date Comments Med Refill 07/14/2023 Encounter Details Date Type Department Care Team (Late st Contact Info) Description 07/14/2023 Telephone [facility] MEDICINE [address] [place], [place] [phone] Name, MD Scot [address] [place] [address] Med Refill Social History Tobacco Use Types [...] 11:00 AM EST Medication was sent to [facility] on 02/14/23 with 11 refills. * Telephone Encounter - Luis Faulkner - 07/14/2023 10:51 AM EST Tc from pt requesting a refill for Umeclidinium Bluebell (Incruse Ellipta) 62.5 MCG/ACT aerosol powder. documented in this encounter Plan of Treatment Upcoming Encounters Date Type Department Care Team (Late st Contact Info) Description 05/16/2025 10:00 AM EDT Medication Management [facility] MEDICINE [address] [place] [address] Alicia Fuentes PharmD [address] [place] [address] documented as of this encounter Goals Goal Patient Goal Type Associated Problems Recent Progress Patient-Stated? Author Smoking cessation General No Alicia Fuentes PharmD documented as of this encounter Visit Diagnoses Not on filedocumented in this encounter Additional Health Concerns Assessment Noted Time PHQ-9 Depression Total Score: 0 08/16/20 22 9:25 AM EST documented as of this encounter Care Teams Music Education Adjunct Professor Relationship Specialty Start Date End Date Name, MD Scot [address] [place] [address] PCP - General Internal Medicine 08/16/22 Alicia Fuentes PharmD [address] [place] [phone] Pharmacist Internal Medicine 12/18/22 01/30/25 Alicia Fuentes PharmD [address] [place] [address] Pharmacist Internal Medicine 07/28/24 01/30/25 Mian Gillette Reeling Machine OperatorHand Endband Cutter 12/29/23 [facility] 07/10/24 documented as of this encounter
--- OUTSIDE RECORDS SUMMARY | 2025-04-28 12:43 | XMS_ITS | Encounter Summary ---
Author Organization [employer] Address [address] [facility] 7 [place] [address] Care Team Providers Care Pull Through Hooker Name Role Phone Name, Scot SEARS Primary Care Provider Puia, Alicia PharmD Unavailable Puia, Alicia PharmD Unavailable [phone] Reason for Visit * Reason Onset Date Comments Nurse Triage 01/19/2025 Encounter Details Date Type Department Care Team (Late st Contact Info) Description 01/19/2025 Telephone [facility] MEDICINE [address] [place], [place] [phone] Name, MD Scot [address] [place] [address] Nurse Triage Social History Tobacco Use Types [...] 01/19/2025 10:05 AM EDT Triage call with [facility] entry level programmer , [place] [id number] Pt reports a clogged sensation in left ear with minor pain on the inside. Neg for fever. Pt reports this started 2 days ago. Pt reports drainage but, has applied ear drops and noted this after a shower. Pt is unable to describe drainage. Pt is advised to come to [facility] today open till 8pm for provider [...] this symptom The caller accepted this outcome. [phone] georgian documented in this encounter Plan of Treatment Upcoming Encounters Date Type Department Care Team (Late st Contact Info) Description 05/16/2025 10:00 AM EDT Medication Management [facility] [address] [place] [address] Alicia Fuentes PharmD [address] [place] [address] documented as of this encounter Goals Goal Patient Goal Type Associated Problems Recent Progress Patient-Stated? Author Smoking cessation General No Alicia Fuentes PharmD documented as of this encounter Visit Diagnoses Not on filedocumented in this encounter Additional Health Concerns Assessment Noted Time PHQ-9 Depression Total Score: 15 024 10:43 AM EDT documented as of this encounter Care Teams Pull Through Hooker Relationship Specialty Start Date End Date Name, MD Scot [address] [place] [address] PCP - General Internal Medicine 08/16/22 Alicia Fuentes, [place] [address] Pharmacist Internal Medicine 12/18/22 01/30/25 Alicia Fuentes, [place] [address] Pharmacist Internal Medicine 07/28/24 01/30/25 Mian Gillette Insurance ManagerFamily Manager 12/29/23 [facility] 07/10/24 documented as of this encounter
--- OUTSIDE RECORDS SUMMARY | 2025-04-28 12:43 | XMS_ITS | Encounter Summary ---
Author Organization [employer] Address [address] [facility] 7t [place] [address] Care Team Providers Care Ophthalmic Medical Technician Name Role Phone Name, Scot SEARS Primary Care Provider Puia, Alicia PharmD Unavailable Puia, Alicia PharmD Unavailable [phone] Reason for Visit * Reason Onset Date Comments Medication Question 11/21/2022 Encounter Details Date Type Department Care Team (Late st Contact Info) Description 11/21/2022 Telephone [facility] MEDICINE [address] [place], [place] [phone] Name, MD Scot [address] [place] [address] Medication Question Social History Tobacco Use Types [...] on last visit Please contact pt at [phone] documented in this encounter Plan of Treatment Upcoming Encounters Date Type Department Care Team (Late st Contact Info) Description 05/16/2025 10:00 AM EDT Medication Management [facility] MEDICINE [address] [place] [address] Alicia Fuentes PharmD [address] [place] [address] documented as of this encounter Visit Diagnoses Not on filedocumented in this encounter Additional Health Concerns Assessment Noted Time PHQ-9 Depression Total Score: 0 08/16/20 9:25 AM EST documented as of this encounter Care Teams Ophthalmic Medical Technician Relationship Specialty Start Date End Date Name, MD Scot [address] [place] [address] PCP - General Internal Medicine 08/16/22 Alicia Fuentes PharmD [address] [place] [address] Pharmacist Internal Medicine 12/18/22 01/30/25 Alicia Fuentes PharmD [address] [place] [address] Pharmacist Internal Medicine 07/28/24 01/30/25 Mian Gillette Business Technology ArchitectPlanning Supervisor 12/29/23 [facility] 07/10/24 documented as of this encounter
--- OUTSIDE RECORDS SUMMARY | 2025-04-28 12:43 | XMS_ITS | Encounter Summary ---
Author Organization [employer] Address 75 [facility] 7 [place] [address] Care Team Providers Care Quality Control Analyst Name Role Phone Name, Scot SEARS Primary Care Provider Puia, Alicia PharmD Unavailable Puia, Alicia PharmD Unavailable [phone] Reason for Visit * Reason Onset Date Comments Orders Request 12/12/2023 Encounter Details Date Type Department Care Team (Late st Contact Info) Description 12/12/2023 Telephone [facility] [address] [place], [place] [phone] Name, MD Scot [address] [place] [address] Orders Request Social History Tobacco Use Types [...] and understood. * Telephone Encounter - Naomi Hialrio - 12/12/2023 8:36 AM EDT Tc from pt requesting Ct Scan order for back pain by request of Orthopedic office stated. documented in this encounter Plan of Treatment Upcoming Encounters Date Type Department Care Team (Late st Contact Info) Description 05/16/2025 10:00 AM EDT Medication Management [facility] [address] [place] [address] PuAlicia gutierres PharmD [address] [place] [address] documented as of this encounter Goals Goal Patient Goal Type Associated Problems Recent Progress Patient-Stated? Author Smoking cessation General No Alicia Fuentes, Bob documented as of this encounter Visit Diagnoses Not on filedocumented in this encounter Additional Health Concerns Assessment Noted Time PHQ-9 Depression Total Score: 9 10/24/19 24 10:30 AM EST documented as of this encounter Care Teams Quality Control Analyst Relationship Specialty Start Date End Date Name, MD Scot [address] [place] [address] PCP - General Internal Medicine 08/16/22 Alicia Fuentes PharmD [address] [place] [address] Pharmacist Internal Medicine 12/18/22 01/30/25 Alicia Fuentes PharmD [address] [place] [address] Pharmacist Internal Medicine 07/28/24 01/30/25 Mian Gillette Slot Operations DirectorMedical Assistant Secretary 12/29/23 [facility] 07/10/24 documented as of this encounter
--- OUTSIDE RECORDS SUMMARY | 2025-04-28 12:43 | XMS_ITS | Encounter Summary ---
Author Organization [employer] Address 75 [facility] 7 [place] [address] Care Team Providers Care Temporary Administrative Assistant Name Role Phone Name, Scot SEARS Primary Care Provider [phone] Reason for Visit * Reason Onset Date Comments PT1 02/09/2025 Encounter Details Date Type Department Care Team ([facility] st Contact Info) Description 02/09/2025 Telephone [facility] 230 [place] [address] Name, MD Scot 230 [place] [address] PT1 Social History Tobacco Use Types Packs/Day [...] Y/N: Yes Provider name or facility name: [facility] - 230 [facility] [address]. Escort needed: Y/N: No Do you have a wheelchair: Y/N: No If yes- Manual or electric: N/A Visits: (3x monthly) Patient calling requesting PT1 Home Address verified: Y/N: Yes Provider name or facility name: [facility] - [address] [place] [address]. Escort needed: Y/N: No Do you have a wheelchair: Y/N: No If yes- Manual or electric: N/A Visits: (2x monthly) Patient calling requesting PT1 Home Address verified: Y/N: Yes Provider name or facility name: [address] [place] [address] [place] [address]. Escort needed: Y/N: No Do you have a wheelchair: Y/N: No If yes- Manual or electric: N/A Visits: (2x monthly) documented in this encounter Plan of Treatment Upcoming Encounters Date Type Department Care Team (Late st Contact Info) Description 05/16/2025 10:00 AM EDT Medication Management [facility] [address] [place] [address] Alicia Fuentes PharmD [address] [place] [address] documented as of this encounter Goals Goal Patient Goal Type Associated Problems Recent Progress Patient-Stated? Author Smoking cessation General No Alicia Fuentes PharmD documented as of this encounter Visit Diagnoses Not on filedocumented in this encounter Additional Health Concerns Assessment Noted Time PHQ-9 Depression Total Score: 15 024 10:43 AM EDT documented as of this encounter Care Teams Temporary Administrative Assistant Relationship Specialty Start Date End Date Name, MD Scot [address] [place] [address] PCP - General Internal Medicine 08/16/22 Mian Gillette Polishing Machine Operator HelperMentally Impaired Teacher 12/29/23 [facility] 07/10/24 documented as of this encounter
--- OUTSIDE RECORDS SUMMARY | 2025-04-28 12:43 | XMS_ITS | Encounter Summary ---
Author Organization [employer] Address 75 [facility] 7t [place] [address] Care Team Providers Care Calciner Operator Helper Name Role Phone Name, Scot SEARS Primary Care Provider Puia, Alicia PharmD Unavailable Puia, Alicia PharmD Unavailable [phone] Reason for Visit * Reason Onset Date Comments Referral 10/09/2022 Encounter Details Date Type Department Care Team (Late st Contact Info) Description 10/09/[address] [facility] 230 [place], [place] [phone] Name, MD Scot [address] [place] [address] Referral Social History Tobacco Use Types Packs/Day [...] a referral to be seen at the [facility] Please contact mom at [phone] documented in this encounter Plan of Treatment Upcoming Encounters Date Type Department Care Team (Late st Contact Info) Description 05/16/2025 10:00 AM EDT Medication Management [facility] [address] [place] [address] Alicia Fuentes PharmD [address] [place] [address] documented as of this encounter Visit Diagnoses Not on filedocumented in this encounter Additional Health Concerns Assessment Noted Time PHQ-9 Depression Total Score: 0 08/16/20 9:25 AM EST documented as of this encounter Care Teams Calciner Operator Helper Relationship Specialty Start Date End Date Name, MD Scot [address] [place] [address] PCP - General Internal Medicine 08/16/22 Alicia Fuentes PharmD [address] [place] [address] Pharmacist Internal Medicine 12/18/22 01/30/25 Alicia Fuentes, PharmD [address] [place] [address] Pharmacist Internal Medicine 07/28/24 01/30/25 Mian Gillette Slurry Tank OperatorOrbitread Operator 12/29/23 [facility] 07/10/24 documented as of this encounter
--- OUTSIDE RECORDS SUMMARY | 2025-04-28 12:43 | XMS_ITS | Encounter Summary ---
Author Organization [employer] Address 75 [facility] 7 [place] [address] Care Team Providers Care Bench Molder Apprentice Name Role Phone Name, Scot SEARS Primary Care Provider Puia, Alicia PharmD Unavailable Puia, Alicia PharmD Unavailable Reason for Visit * Reason Comments Med Refill Encounter Details Date Type Department Care Team (Late st Contact Info) Description 12/12/2023 Refill [facility] 230 [place], [place] [phone] Radha Foster DO 230 [place], [place] [phone] Social History Tobacco Use Types Packs/Day Years [...] Description 05/16/2025 10:00 AM EDT Medication Management [facility] [address] [place] [address] Alicia Fuentes, PharmD [address] [place] [address] documented as of this encounter Goals Goal Patient Goal Type Associated Problems Recent Progress Patient-Stated? Author Smoking cessation General No Alicia Fuentes, PharmD documented as of this encounter Visit Diagnoses Not on filedocumented in this encounter Additional Health Concerns Assessment Noted Time PHQ-9 Depression Total Score: 9 10/24/19 24 10:30 AM EST documented as of this encounter Care Teams Bench Molder Apprentice Relationship Specialty Start Date End Date Name, MD Scot [address] [place] [address] PCP - General Internal Medicine 08/16/22 Puia, Bob Vargas [address] [place] [address] Pharmacist Internal Medicine 12/18/22 01/30/25 Alicia Fuentes PharmD [address] [place] [address] Pharmacist Internal Medicine 07/28/24 01/30/25 Mian Gillette Instrument Lens GeneratorSupervisor Drying 12/29/23 [facility] 07/10/24 documented as of this encounter
--- OUTSIDE RECORDS SUMMARY | 2025-04-28 12:43 | XMS_ITS | Encounter Summary ---
Author Organization [employer] Address 75 [facility] 7t [place] [address] Care Team Providers Care Building Trades Instructor Name Role Phone Name, Scot SEARS Primary Care Provider Puia, Alicia PharmD Unavailable [phone] Puia, Alicia PharmD Unavailable [phone] Reason for Visit * Reason Onset Date Comments Durable Medical Equipment 08/22/2023 Encounter Details Date Type Department Care Team (Late st Contact Info) Description 08/22/2023 Telephone [facility] 230 [place], [place] [phone] Name, MD Scot [address] [place] [address] Durable Medical Equipment Social History Tobacco Use [...] on papers below. Please contact pt @ [phone] * Telephone Encounter - Lorraine Mccray - 08/22/2023 3:22 PM EST Tc from pt requesting for PCP to fill out a [facility] necessity form for a walker due to having hip surgery 08/26. States he dropped it off the front desk manager. Please contact pt at [phone] (Hungarian) documented in this encounter Plan of Treatment Upcoming Encounters Date Type Department Care Team (Late st Contact Info) Description 05/16/2025 10:00 AM EDT Medication Management [facility] [address] [place], [place] [phone] Alicia Fuentes, AnkushD [address] [place], [place] [phone] documented as of this encounter Goals Goal Patient Goal Type Associated Problems Recent Progress Patient-Stated? Author Smoking cessation General No Alicia Fuentes PharmD documented as of this encounter Visit Diagnoses Not on filedocumented in this encounter Additional Health Concerns Assessment Noted Time PHQ-9 Depression Total Score: 0 08/16/20 22 9:25 AM EST documented as of this encounter Care Teams Building Trades Instructor Relationship Specialty Start Date End Date Name, MD Scot [address] [place] [address] PCP - General Internal Medicine 08/16/22 Alicia Fuentes PharmD [address] [place] [address] Pharmacist Internal Medicine 12/18/22 01/30/25 Alicia Fuentes PharmD [address] [place] [address] Pharmacist Internal Medicine 07/28/24 01/30/25 Mian Gillette HorseshoerBrass Finisher 12/29/23 [facility] 07/10/24 documented as of this encounter
--- OUTSIDE RECORDS SUMMARY | 2025-04-28 12:43 | XMS_ITS | Encounter Summary ---
Author Organization [employer] Address 75 [facility] 7t [place] [address] Care Team Providers Care Commercial Stripper Name Role Phone Name, Scot SEARS Primary Care Provider Puia, Alicia PharmD Unavailable Puia, Alicia PharmD Unavailable [phone] Encounter Details Date Type Department Care Team (Late st Contact Info) Description 11/21/2022 Telephone [facility] 230 [place], [place] [phone] Name, MD Scot 230 [place] [address] Social History Tobacco Use Types Packs/Day Years [...] Description 05/16/2025 10:00 AM EDT Medication Management [facility] [address] [place] [address] Alicia Fuentes PharmD 230 [place] [address] documented as of this encounter Visit Diagnoses Not on filedocumented in this encounter Additional Health Concerns Assessment Noted Time PHQ-9 Depression Total Score: 0 08/16/20 9:25 AM EST documented as of this encounter Care Teams Commercial Stripper Relationship Specialty Start Date End Date Name, MD Scot [address] [place] [address] PCP - General Internal Medicine 08/16/22 Alicia Fuentes PharmD [address] [place] [address] Pharmacist Internal Medicine 12/18/22 01/30/25 Alicia Fuentes PharmD [address] [place] [address] Pharmacist Internal Medicine 07/28/24 01/30/25 Mian Gillette Geochemical Laboratory TechnicianMachine Greaser 12/29/23 [facility] 07/10/24 documented as of this encounter
--- OUTSIDE RECORDS SUMMARY | 2025-04-28 12:43 | XMS_ITS | Encounter Summary ---
Author Organization [employer] Address 75 [facility] 7t [place] [address] Care Team Providers Care Basket Hand Weaver Name Role Phone Name, Scot SEARS Primary Care Provider Puia, Alicia PharmD Unavailable Puia, Alicia PharmD Unavailable Reason for Visit * Reason Comments Med Refill Encounter Details Date Type Department Care Team ([facility] st Contact Info) Description 10/18/2024 Refill [facility] [address] [place] [address] Puia, Alicia, PharmD 230 [place] [address] New onset type 2 diabetes mellitus (CMS/HCC) [...] the past 12 months, has t he [employer], gas, oil or water [employer] threatened to shut off services in your [...] PM EST Denied. Requested in error per [facility] pharmacy team. Patient has upcoming visit with me next week documented in this encounter Plan of Treatment Upcoming Encounters Date Type Department Care Team (Late st Contact Info) Description 05/16/2025 10:00 AM EDT Medication Management [facility] [address] [place] [address] Alicia Fuentes PharmD [address] [place] [address] documented as of this encounter Goals Goal [...] documented as of this encounter Care Teams Basket Hand Weaver Relationship Specialty Start Date End Date Name, MD Scot [address] [place] [address] PCP - General Internal Medicine 08/16/22 Alicia Fuentes PharmD [address] [place] [address] Pharmacist Internal Medicine 12/18/22 01/30/25 Alicia Fuentes PharmD [address] [place] [address] Pharmacist Internal Medicine 07/28/24 01/30/25 Mian Gillette Technical InternshipSand Mill Operator Core Sand 12/29/23 [facility] 07/10/24 documented as of this encounter
--- OUTSIDE RECORDS SUMMARY | 2025-04-28 12:43 | XMS_ITS | Encounter Summary ---
Author Organization [employer] Address 75 [facility] 7 [place] [address] Care Team Providers Care Legal Editor Name Role Phone Name, Scot SEARS Primary Care Provider [phone] Puia, Alicia PharmD Unavailable [phone] Puia, Alicia PharmD Unavailable [phone] Reason for Visit * Reason Onset Date Comments Med Refill 10/19/2024 Encounter Details Date Type Department Care Team (Late st Contact Info) Description 10/19/2024 Telephone [facility] 230 [place], [place] [phone] Name, MD Scot [address] [place] [address] Med Refill Social History Tobacco Use Types [...] the past 12 months, has t he [employer], gas, oil or water [employer] threatened to shut off services in your [...] 2 Sensor) misc To be sent to: [facility] [place], [place] - 230 [facility] documented in this encounter Plan of Treatment Upcoming Encounters Date Type Department Care Team ([facility] st Contact Info) Description 05/16/2025 10:00 AM EDT Medication Management [facility] [address] [place] [address] Alicia Fuentes PharmD [address] [place] [address] documented as of this encounter Goals Goal Patient Goal Type Associated Problems Recent Progress Patient-Stated? Author Smoking cessation General No Alicia Fuentes, PharmD documented as of this encounter Visit Diagnoses Not on filedocumented in this encounter Additional Health Concerns Assessment Noted Time PHQ-9 Depression Total Score: 15 024 10:43 AM EDT documented as of this encounter Care Teams Legal Editor Relationship Specialty Start Date End Date Name, MD Scot [address] [place] [address] PCP - General Internal Medicine 08/16/22 Alicia Fuentes PharmD [address] [place] [address] Pharmacist Internal Medicine 12/18/22 01/30/25 Alicia Fuentes PharmD [address] [place] [address] Pharmacist Internal Medicine 07/28/24 01/30/25 Mian Gillette Expeller OperatorSecurity Installer 12/29/23 [facility] 07/10/24 documented as of this encounter
--- OUTSIDE RECORDS SUMMARY | 2025-04-28 12:43 | XMS_ITS | Encounter Summary ---
Author Organization [facility] Address [address] [place] [address] Phone Care Team Providers Care Irrigation System Installer Name Role Phone Bib Parra MD Primary Care Pro vider Encounter Details Date Type Department Care Team (Late st Contact Info) Description 10/31/2021 Procedure Pass [facility] - [place] [address] [place] [phone] Social History Tobacco Use Types Packs/Day Years [...] on filedocumented in this encounter Care Teams Irrigation System Installer Relationship Specialty Start Date End Date Bib Parra MD [address] [place] [address] PCP - General 10/31/21 documented as of this encounter Additional Source Comments The information contained in this document represents components of the legal health record. It is not the complete legal health record.[facility]
--- OUTSIDE RECORDS SUMMARY | 2025-04-28 12:43 | XMS_ITS | Encounter Summary ---
Author Organization [employer] Address 75 [facility] 7t [place] [address] Care Team Providers Care Soap Boiler Name Role Phone Name, Scot SEARS Primary Care Provider [phone] Reason for Visit * Reason Onset Date Comments Chart Prep 04/27/2025 Encounter Details Date Type Department Care Team ([facility] st Contact Info) Description 04/27/2025 Telephone [facility] [address] [place] [address] Name, MD Scot [address] [place] [address] Chart Prep Social History Tobacco Use Types [...] Miscellaneous Notes * Telephone Encounter - Kaleb Tejaad [place] - 04/27/2025 9:28 AM EDT Chart Prep Labs: done Images: done Referrals: complete Vaccines due: Flu Screenings: colonoscopy and foot exam Overdue care gaps: PHQ-9, LEROY-7, Oral health screening, and Disability screen GLU A!C needs review documented in this encounter Plan of Treatment Upcoming Encounters Date Type Department Care Team (Late st Contact Info) Description 05/16/2025 10:00 AM EDT Medication Management [facility] [address] [place] [address] Alicia Fuentes, PharmD [address] [place] [address] documented as of this encounter Goals Goal Patient Goal Type Associated Problems Recent Progress Patient-Stated? Author Smoking cessation General No Alicia Fuentes, PharmD documented as of this encounter Visit Diagnoses Not on filedocumented in this encounter Additional Health Concerns Assessment Noted Time PHQ-9 Depression Total Score: 15 024 10:43 AM EDT documented as of this encounter Care Teams Soap Boiler Relationship Specialty Start Date End Date Name, MD Scot [address] [place] [address] PCP - General Internal Medicine 08/16/22 Mian Gillette Genetics NurseTechnical Sales Manager 12/29/23 [facility] 07/10/24 documented as of this encounter
--- OUTSIDE RECORDS SUMMARY | 2025-04-28 12:43 | XMS_ITS | Encounter Summary ---
Author Organization [employer] Address 75 [facility] 7t [place] [address] Care Team Providers Care Trouble Operator Name Role Phone Name, Scot SEARS Primary Care Provider [phone] Encounter Details Date Type Department Care Team (Latest Contact Info) Description 04/28/2025 Travel Social History Tobacco Use Types Packs/Day [...] AM EDT documented as of this encounter Functional Status * Over the past 2 weeks, how often have you been bothered by any of the following problems? Question Answer Date of Assessment Author Patient Health Questionnaire-2 Score 1 04/28/2025 10:40 AM DELANOT Rafy Givens [place] * Little interest or pleasure in doing things Answer Date of Assessment Author Not at all 04/28/2025 10:40 AM Jena Sepulveda [place] * Feeling down, depressed, or hopeless Answer Date of Assessment Author Several days 04/28/2025 10:40 AM Jena Sepulveda [place] * Trouble falling or staying asleep, or sleeping too much Answer Date of Assessment Author Nearly every day 04/28/2025 10:40 AM Jena Jama [place] * Feeling tired or having little [...] Not at all 04/28/2025 10:40 AM EDT Givens , [place], [place] * Moving or speaking so slowly [...] 04/28/2025 10:40 AM Jena Sepulveda MA * Patient Health Questionnaire-9 Score Answer Date of Assessment Author 10 04/28/2025 10:40 AM Jena Sepulveda [place] * Over the last 2 weeks, how often have you been bothered by any of the following problems? Question Answer Date of Assessment Author Feeling nervous, anxious, or on edge 0 04/28/2025 10:40 AM Grzegorz Sepulveda MA Not being able to stop or control worrying 2 04/28/2025 10:40 AM Grzegorz Sepulveda MA Worrying too much about different things 2 04/28/2025 10:40 AM Grzegorz Sepulveda MA Trouble relaxing 0 04/28/2025 10:40 AM Jena Sepulveda MA Being so restless that it is hard to sit still 0 04/28/2025 10:40 AM Grzegorz Sepulveda MA Becoming easily annoyed or irritable 1 04/28/2025 10:40 AM Grzegorz Sepulveda MA Feeling afraid as if something awful might happen 1 04/28/2025 10:40 AM Jena Jama MA LEROY-7 Total Score 6 04/28/2025 10:40 AM Jena Sepulveda [place] documented as of this encounter Plan of Treatment Upcoming Encounters Date Type Department Care Team (Late st Contact Info) Description 05/16/2025 10:00 AM EDT Medication Management [facility] [address] [place] [address] Alicia Fuentes, AnkushD [address] [place] [address] documented as of this encounter Goals Goal Patient Goal Type Associated Problems Recent Progress Patient-Stated? Author Smoking cessation General No Alicia Fuentes, AnkushD documented as of this encounter Visit Diagnoses Not on filedocumented in this encounter Additional Health Concerns Assessment Noted Time PHQ-9 Depression Total Score: 10 025 10:40 AM EDT documented as of this encounter Care Teams Trouble Operator Relationship Specialty Start Date End Date Name, MD Scot [address] [place] [address] PCP - General Internal Medicine 08/16/22 Mian Gillette Adult EducatorStraightener Gun Parts 12/29/23 [facility] 07/10/24 documented as of this encounter
--- OUTSIDE RECORDS SUMMARY | 2025-04-28 12:43 | XMS_ITS | Encounter Summary ---
Author Organization [employer] Address 75 [facility] 7 [place] [address] Care Team Providers Care Building Consultant Name Role Phone Name, Scot SEARS Primary Care Provider Puia, Alicia PharmD Unavailable [phone] Puia, Alicia PharmD Unavailable [phone] Reason for Visit * Reason Onset Date Comments Appointment Request 03/18/2023 Encounter Details Date Type Department Care Team (Late st Contact Info) Description 03/18/2023 Telephone [facility] 230 [place], [place] [phone] Name, MD Scot [address] [place] [address] Appointment Request Social History Tobacco Use Types [...] recent chest scans. Please contact pt at [phone] (Georgian) documented in this encounter Plan of Treatment Upcoming Encounters Date Type Department Care Team (Late st Contact Info) Description 05/16/2025 10:00 AM EDT Medication Management [facility] [address] [place] [address] Alicia Fuentes PharmD [address] [place] [address] documented as of this encounter Goals Goal Patient Goal Type Associated Problems Recent Progress Patient-Stated? Author Smoking cessation General No Alicia Fuentes, PharmD documented as of this encounter Visit Diagnoses Not on filedocumented in this encounter Additional Health Concerns Assessment Noted Time PHQ-9 Depression Total Score: 0 08/16/20 9:25 AM EST documented as of this encounter Care Teams Building Consultant Relationship Specialty Start Date End Date Name, MD Scot [address] [place] [address] PCP - General Internal Medicine 08/16/22 Alicia Fuentes, PharmD [address] [place] [address] Pharmacist Internal Medicine 12/18/22 01/30/25 Alicia Fuentes, PharmD [address] [place] [address] Pharmacist Internal Medicine 07/28/24 01/30/25 Mian Gillette Contractor General EngineeringPmp Certified Project Manager 12/29/23 [facility] 07/10/24 documented as of this encounter
--- OUTSIDE RECORDS SUMMARY | 2025-04-28 12:43 | XMS_ITS | Encounter Summary ---
Author Organization [employer] Address [address] [facility] 7t [place] [address] Care Team Providers Care Rn Orthopaedic Name Role Phone Name, Scot SEARS Primary Care Provider Puia, Alicia PharmD Unavailable Puia, Alicia PharmD Unavailable Reason for Visit * Reason Comments Med Refill Encounter Details Date Type Department Care Team (Late st Contact Info) Description 12/12/2023 Refill [facility] MED & PEDS [address] [place] [address] Name, MD Scot [address] [place] [address] Tobacco use Social History Tobacco Use Types [...] with others, in a hotel, in a penitentiary, living outside on the street, on a [...] Description 05/16/2025 10:00 AM EDT Medication Management [facility] MEDICINE [address] [place] [address] Alicia Fuentes, PharmD [address] [place] [address] documented as of this encounter Goals Goal Patient Goal Type Associated Problems Recent Progress Patient-Stated? Author Smoking cessation General No Alicia Fuentes, PharmD documented as of this encounter Visit Diagnoses Diagnosis Tobacco use documented in this encounter Additional Health Concerns Assessment Noted Time PHQ-9 Depression Total Score: 9 10/24/19 24 10:30 AM EST documented as of this encounter Care Teams Rn Orthopaedic Relationship Specialty Start Date End Date Name, MD Scot [address] [place] [address] PCP - General Internal Medicine 08/16/22 Puia, Bob Vargas [address] [place] [address] Pharmacist Internal Medicine 12/18/22 01/30/25 Alicia Fuentes PharmD [address] [place] [address] Pharmacist Internal Medicine 07/28/24 01/30/25 Mian Gillette Scientific WriterChair And Couch Maker 12/29/23 [facility] 07/10/24 documented as of this encounter
--- OUTSIDE RECORDS SUMMARY | 2025-04-28 12:43 | XMS_ITS | Clinical Summary ---
Author Organization [facility] Address [address] [facility] [address] [place] [phone] Phone Care Team Providers Care Data Control Clerk Name Role Phone Bib Parra MD Primary [...] file Medical Devices Not on file Insurance [facility] [place] [id number] [place] [id number] [employer] MY CARE FAMILY ACO [employer] MY [employer] FAMILY [employer] MY CARE FAMILY ACO [facility] MY CARE FAMILY ACO Care Teams Data Control Clerk Relationship Specialty Start Date End Date Bib Parra MD [address] [place] [phone] PCP - General 10/31/21 Additional Source Comments The information contained in this document represents components of the legal health record. It is not the complete legal health record.[facility]
--- OUTSIDE RECORDS SUMMARY | 2025-04-28 12:43 | XMS_ITS | Clinical Summary ---
Author Organization [employer] Address [address] [facility] 7t [place] [address] Care Team Providers Care Creative Project Manager Name Role Phone Name, Scot SEARS Primary Care Provider [phone] Allergies No known active allergies Medications * This document contains information received from the source organization and may not represent a complete record from that organization. Blood Pressure Monitoring (Omron 3 Series BP Monitor) deviceIndication s:Primary hypertension 1 each by Other route Once daily. USE TO CHECK BLOOD PRESSURE EVERY DAY, CALL MD IF > 170/100 1 each 10/06/19 24 Active Umeclidinium Clemons (Incruse Ellipta) 62.5 MCG/ACT aerosol powder Inhale 1 each in the morning. 1 each 11 10/15/19 24 Active omeprazole (PriLOSEC) [address] capsule Take 40 mg by mouth in the morning. 03/25/20 24 Active aspirin 81 MG chewable tabletIndication s:New onset type 2 diabetes mellitus ([facility]) Chew 1 tablet (81 mg) Once per day. 30 tablet 11 07/21/20 24 025 Active albuterol (Ventolin HFA) 108 (90 Base) MCG/ACT inhalerIndicatio ns:Suspected chronic obstructive pulmonary disease based on initial evaluation ([facility]) INHALE 1 TO 2 PUFFS FOUR TIMES DAILY NEEDED FOR WHEEZING OR SHORTNESS OF BREATH 18 g 2 07/21/20 24 Active Advair Diskus 500-50 MCG/ACT aerosol powder INHALE 1 PUFF TWICE DAILY. RINSE MOUTH AFTER USING. 07/09/20 24 Active Continuous Glucose Rockboard Lather (FreeStyle Neel 3 [place]) deviceIndication s:New onset type 2 diabetes mellitus [...] ITCHING 30 capsule 2 01/29/20 25 Active Alcohol Swabs (Alcohol Prep) 70 [...] by mouth Once per day. 90 tablet 3 02/01/20 25 Active glucagon (Baqsimi Two Pack) [...] 15 mL 11 03/03/20 25 026 Active Dupilumab (Dupixent) 100 MG/0.67ML solution prefilled syringe Inject 100 mg under the skin See administration instructions. Every 14 days prescribed at [facility] pulmonology (Olamide) 04/28/20 25 Active furosemide (Lasix) 40 MG tablet Take 1 tablet (40 mg) by mouth Once per day. 30 tablet 04/28/20 25 026 Active methocarbamol (Robaxin) 750 MG tablet Take 1 tablet by mouth if needed in the morning, at noon, and at bedtime (pain). 06/09/20 24 025 Discontin ued(Thera py completed ) furosemide (Lasix) 80 MG tablet Take 80 mg by mouth in the morning. 12/15/19 025 Discontin ued(Dose adjustmen t) Active Problems Problem Noted Date Diagnosed Date [...] risk. Referred to CDTM program, spoke with [facility] pharmacist who plans to f/u with patient [...] intervention , [facility], and Patient to reach [...] Encounters Date Type Department Care Team Description 04/28/2025 10:30 AM EDT Office Visit [facility] MEDICINE [address] [place] [phone] Name, MD Scot Type 2 diabetes mellitus with obesity (CMS/HCC) ([facility]) (Primary Dx); Tobacco dependence; Encounter for screening for malignant neoplasm of colon 04/28/2025 Travel 04/27/2025 Telephone [facility] CHC MED & PEDS [address] [place], [place] [phone] Scot Mathews MD Chart Prep 04/19/2025 Telephone [facility] MEDICINE [address] [place] [phone] Scot Mathews MD Appointment Request 03/30/2025 2:15 PM EDT Office Visit [facility] OPTOMETRY [address] [place] [phone] Steve, Hattie, OD Presbyopia (Primary Dx) 03/30/2025 Travel 03/03/2025 2:00 PM EDT Office Visit [facility] OPTOMETRY [address] [place] [phone] Germania Victoria, OD Type 2 diabetes mellitus without ophthalmic manifestations ([facility]) (Primary Dx); Macular scar of right eye; Dry eyes; Anisocoria; Presbyopia 03/03/2025 Travel 02/17/2025 Refill [facility] MEDICINE [address] [place] [phone] Scot Mathews MD 02/09/2025 Patient Outreach [address] [address] Scot Mathews MD Care Coordination ([facility] outreach for SDOH PT-1 and food needs-referral completed /) 02/09/2025 Telephone [facility] MEDICINE [address] [place] [phone] Scot Mathews MD PT1 02/08/2025 10:00 AM EDT Office Visit [facility] ADULT DENTAL [address] [place] [phone] Beba Villaseñor Dental plaque (Primary Dx); Dental calculus 02/05/2025 10:40 AM EDT Office Visit [facility] WALK-IN CENTER [address] [place] [phone] Aguila Deutsch MD Acute bronchitis, unspecified organism (Primary Dx); Viral URI with cough 02/01/2025 Telephone [facility] MEDICINE [address] [place] [address] [phone] Reid MD Scot Appointment Request 01/31/2025 Travel 01/28/2025 Telephone [facility] MEDICINE [address] [place] [phone] Jena Givens [place] 01/28/2025 Refill [facility] MEDICINE [address] [place] [address] Name, MD Scot from Last 3 Months Immunizations Immunization Administration [...] Mass Index 35.37 04/28/2025 10:37 AM EDT Plan of Treatment Upcoming Encounters Date Type Department Care Team (Late st Contact Info) Description 05/16/2025 10:00 AM EDT Medication Management [facility] MEDICINE [address] [place] [address] Alicia Fuentes, PharmD [address] [place] [address] Health Maintenance Due Date Last Done Comments CT Colonography 1965 Colonoscopy 1965 Colorectal Cancer Screening 1965 Dental Prophylaxis 1965 FIT DNA/Cologuard 1965 FIT 1965 FOBT 1965 Sigmoidoscopy 1965 Dental X-Ray: Bitewings 08/31/2023 08/30/2022 Influenza Vaccine (#1) 2025 , 05/14/2023, 06/06/2022 Alcohol/Substance Use Screening 07/21/2025 07/21/2024 Diabetes: Urine Protein Screening 07/30/2025 07/30/2024 Diabetes: Hemoglobin A1C 08/02/2025 025, 09/10/2024, 07/21/2024, Additional history exists Dental Oral Exam 08/11/2025 02/08/2025, 08/30/2022 Dental X-Ray: Full Mouth 08/31/2025 08/30/2022 SDOH Screening 09/10/2025 09/10/2024 Depression Monitoring 10/26/2025 04/28/2025, 025 Lipid Panel 11/05/2025 11/05/2024, 12/0 01/2024, 02/18/2023, Additional history exists Diabetes: Foot Exam 04/28/2026 04/28/2025, 04/28/2025, 04/28/2025, Additional history exists Disability Screening 04/28/2026 04/28/2025 Tobacco Screening 04/28/2026 04/28/2025 Eye Exam 03/03/2027 03/03/2025, 07, 03/03/2025, Additional history exists DTaP/Tdap/Td Vaccines (2 [...] this topic Meningococcal Vaccine Aged Out No valeire allegra eligible based on patient's age to [...] mellitus with hypoglycemia without coma, unspecified whether watermelon inspector insulin use (CMS/HCC) LIPID PANEL, STANDARD Routine [...] annual exam for monocular status. Monitor at [facility] in 1 year. Patient states his understanding of findings and management plan. us Germania Victoria OD OPHTH PHOTOGRAPHY Final Result * POCT Influenza B manually resulted (02/05/2025 10:49 AM EDT) Rapid Influenza B Ag Negative Negative, Indeterminate QC Media Lot # [id number] Lot# Expiration Date Swab 02/05/2025 10:4 9 AM EDT us Aguila Deutsch MD POINT OF CARE TEST ENTER/EDIT OR DERABLES Final Result * POCT Influenza A manually resulted (02/05/2025 10:49 AM EDT) Rapid Influenza A Ag Negative Negative, Indeterminate QC Media Lot # [id number] Lot# Expiration Date Swab Nasopharyngeal structure / Unknown 02/05/2025 10:49 AM EDT us Aguila Deutsch MD POINT OF CARE TEST ENTER/EDIT OR DERABLES Final Result * POCT COVID-19 Ag Antoine ID NOW (02/05/2025 10:43 AM EDT) [facility] Coronavirus Antigen PCR Negative Negative, Indeterminate, None Detected, Invalid, Specimen unsatisfactory for evaluation, Weakly Positive, 2+ QC Media Lot # [id number] Lot# Expiration Date Swab 02/05/2025 10:4 3 AM EDT Aguila Deutsch MD POINT OF CARE TEST ENTER/EDIT OR DERABLES Final Result * POCT rapid strep A manually resulted (02/05/2025 10:43 AM EDT) [facility] Rapid Strep A Screen Negative Negative, None Detected QC Media Lot # [id number] Lot# Expiration Date Swab 02/05/2025 10:4 3 AM EDT Aguila Deutsch MD POINT OF CARE TEST ENTER/EDIT OR DERABLES Final Result * POCT HGB A1C (01/31/2025 10:20 AM EDT) [facility] Hemoglobin A1C 5.6 4.0 - 6.0 % QC Media Lot # [id number] Blood 01/31/2025 10:2 0 AM EDT Scot Mathews MD POINT OF CARE TEST ENTER/EDIT OR DERABLES Final Result * (ABNORMAL) Lipid Panel, Standard (11/05/2024 11:35 AM EDT) [facility] Triglycerides 278(H) <150 mg/dL [facility] Comment:Desirable Triglyceri de: less than 150 mg/dLBorderline High Triglyceride 150-199 mg/dLHigh Triglyceride: 200-499 mg/dLVery High Triglyceride: greater than or equal to 5OO mg/dL Cholesterol 189 <200 mg/dL [facility] Comment:Desirable Cholestero l: less than 200 mg/dLBorderline High Cholesterol: 200-239 mg/dLHigh Cholesterol: greater than 239 mg/dL LDL Cholesterol Calculated 101(H) <100 mg/dL [facility] Comment:Desirable LDL: less than 100 mg/dLNear Optimal/Above Optimal LDL: 110- 129 mg/dLBorderline High LDL: 130-159 mg/dLHigh LDL: 160-189 mg/dLVery High LDL: greater than or equal to 190 mg/dL HDL Cholesterol 33(L) >40 mg/dL [facility] Comment:Desirable HDL: great er than 40 mg/dL Note: This HDL assay may give artificially low results in patients with liver disease. 11/05/2024 11:3 5 AM EDT 11/05/2024 1:32 PM EDT us Scot Mathews MD LAB BLOOD ORDERABLES Final Resul t Performing Organization Address [facility] de Phone Number [facility] [address] [place] [phone] * Albumin, Random Urine W/Creatinine (07/30/2024 4:03 PM EST) Creatinine, Urine 122.34 mg/dL [facility] Microalbumin Urine 14.0 mg/L [facility] Microalbum Creatinine Ratio Ur 11.4 <30 ug/mg cr [facility] Comment:Albumin/Creatinine R atio Reference Ranges: Normal: < 30 ug/mg creatinine Microalbuminuria: 30 - 300 ug/mg creatinineClinical Albuminuria: > 300 ug/mg creatinine Urine (Urine, Random) 07/30/2024 4:03 PM EST 07/30/2024 5:39 PM EST us Lexi North NP LAB URINE ORDERABLES Final Resul t Performing Organization Address [facility] Co de Phone Number [facility] [address] [place] [phone] * Hepatitis C Ab (11/05/2023 8:18 AM EDT) Hepatitis C Antibody Nonreactive Nonreactive [facility] Comment:Antibodies to HCV no t detected; does not exclude early acuteHCV infection. Blood Venous blood specimen / Unknown 11/05/2023 8:18 AM EDT 11/05/2023 11:14 AM EDT Scot Mathews MD LAB BLOOD ORDERABLES Final Resul t Performing Organization Address [facility] Co de Phone Number [facility] [address] [place] [phone] [phone] * HIV-1/2 Antigen and Antibodies, Fourth Generation, with Reflexes (11/05/2023 8:18 AM EDT) Pathologist [facility] HIV AB/AG Nonreactive Nonreactive [facility] Comment:HIV-1 p24 Ag and/or HIV-1/HIV-2 Ab not detected.A test result that is nonreactive does not exclude thepossibility of exposure to or infection with HIV-1 and/orHIV-2. Nonreactive results in this assay for individualswith prior exposure to HIV-1 and/or HIV-2 may be due toantigen and antibody levels that are below the limit ofdetection of this assay.The [employer] HIV Ag/Ab Combo assay result andsupplemental assay results should be interpreted inconjunction with the patient's clinical presentation,history and other laboratory results. If the results areinconsistent with clinical evidence, additional testing issuggested to confirm the result. Blood Venous blood specimen / Unknown 11/05/2023 8:18 AM EDT 11/05/2023 11:14 AM EDT us Scot Mathews MD LAB BLOOD ORDERABLES Final Resul t Performing Organization Address [facility]/ZIP Co de Phone Number [facility] [address] [place] [phone] from Last 3 Months or Most Recently Relevant to Health Maintenance Insurance [facility] C3 DENTAL-[facility] MEDICAID STAND ADULT Care Teams Creative Project Manager Relationship Specialty Start Date End Date Name, MD Scot [address] [place] [address] PCP - General Internal Medicine 08/16/22 Mian Gillette Barrel Filler HeadFiberglass Model Maker 12/29/23 [facility] 07/10/24
--- OUTSIDE RECORDS SUMMARY | 2025-04-28 12:43 | XMS_ITS | Encounter Summary ---
Author Organization [employer] Address [address] [facility] 7t [place] [address] Care Team Providers Care Devops Developer Name Role Phone Name, Scot SEARS Primary Care Provider [phone] Puia, Alicia PharmD Unavailable [phone] Puia, Alicia PharmD Unavailable [phone] Encounter Details Date Type Department Care Team (Late st Contact Info) Description 07/14/2023 Telephone [facility] MEDICINE [address] [place], [place] [phone] Name, MD Scot [address] [place] [address] Social History Tobacco Use Types Packs/Day Years [...] Description 05/16/2025 10:00 AM EDT Medication Management [facility] MEDICINE [address] [place] [phone] Alicia Fuentes PharmD [address] [place] [phone] documented as of this encounter Goals Goal Patient Goal Type Associated Problems Recent Progress Patient-Stated? Author Smoking cessation General No Alicia Fuentes PharmD documented as of this encounter Visit Diagnoses Not on filedocumented in this encounter Additional Health Concerns Assessment Noted Time PHQ-9 Depression Total Score: 0 08/16/20 9:25 AM EST documented as of this encounter Care Teams Devops Developer Relationship Specialty Start Date End Date Name, MD Scot [address] [place] [phone] PCP - General Internal Medicine 08/16/22 Alicia Fuentes PharmD [address] [place] [phone] Pharmacist Internal Medicine 12/18/22 01/30/25 Alicia Fuentes PharmD [address] [place] [phone] Pharmacist Internal Medicine 07/28/24 01/30/25 Mian Gillette Leak InspectorDisaster Recovery Analyst 12/29/23 [facility] 07/10/24 documented as of this encounter
--- OUTSIDE RECORDS SUMMARY | 2025-04-28 12:43 | XMS_ITS | Encounter Summary ---
Author Organization [employer] Address [address] [facility] 7t [place] [address] Care Team Providers Care Supervisor Roving Name Role Phone Name, Scot SEARS Primary Care Provider [phone] Puia, Alicia PharmD Unavailable Puia, Alicia PharmD Unavailable Reason for Visit * Reason Comments Med Refill Encounter Details Date Type Department Care Team ([facility] st Contact Info) Description 09/16/2024 Refill [facility] MEDICINE [address] [place], [place] [phone] Name, MD Scot [address] [place], [place] [phone] New onset type 2 diabetes mellitus (CMS/HCC) [...] the past 12 months, has t he [employer], gas, oil or water [employer] threatened to shut off services in your [...] Description 05/16/2025 10:00 AM EDT Medication Management [facility] MEDICINE [address] [place] [address] Alicia Fuentes, PharmD [address] [place] [address] documented as of this encounter Goals Goal [...] documented as of this encounter Care Teams Supervisor Roving Relationship Specialty Start Date End Date Name, MD Scot [address] [place] [address] PCP - General Internal Medicine 08/16/22 Alicia Fuentes, PharmD [address] [place] [address] Pharmacist Internal Medicine 12/18/22 01/30/25 Alicia Fuentes, Bob [address] [place] [address] Pharmacist Internal Medicine 07/28/24 01/30/25 Mian Gillette Manager Sales And MarketingMarriage And Family Counselor 12/29/23 [facility] 07/10/24 documented as of this encounter
--- OUTSIDE RECORDS SUMMARY | 2025-04-28 12:43 | XMS_ITS | Encounter Summary ---
Author Organization [employer] Address [address] [facility] 7 [place] [address] Care Team Providers Care Pressure Test Operator Name Role Phone Name, Scot SEARS Primary Care Provider [phone] Puia, Aliica PharmD Unavailable Puia, Alicia PharmD Unavailable [phone] Reason for Visit * Reason Onset Date Comments PT1 03/02/2024 Encounter Details Date Type Department Care Team (Late st Contact Info) Description 03/02/2024 Telephone [facility] MEDICINE [address] [place], [place] [phone] Name, MD Scot [address] [place] [address] PT1 Social History Tobacco Use Types Packs/Day [...] Y/N: Yes Provider name or facility name: [facility] Facility Address: [address] [place] [address] [address] [place], [place] [phone] [place] [address] Escort needed: Y/N: No Do you have a wheelchair: Y/N: No If yes- Manual or electric: no Visits: 3 a month documented in this encounter Plan of Treatment Upcoming Encounters Date Type Department Care Team ([facility] st Contact Info) Description 05/16/2025 10:00 AM EDT Medication Management [facility] MEDICINE [address] [place] [address] Alicia Fuentes PharmD [address] [place] [address] documented as of this encounter Goals Goal Patient Goal Type Associated Problems Recent Progress Patient-Stated? Author Smoking cessation General No Alicia Fuentes, Bob documented as of this encounter Visit Diagnoses Not on filedocumented in this encounter Additional Health Concerns Assessment Noted Time PHQ-9 Depression Total Score: 9 10/24/19 24 10:30 AM EST documented as of this encounter Care Teams Pressure Test Operator Relationship Specialty Start Date End Date Name, MD Scot [address] [place] [address] PCP - General Internal Medicine 08/16/22 Alicia Fuentes, Bob [address] [place] [address] Pharmacist Internal Medicine 12/18/22 01/30/25 lAicia Fuentes PharmD [address] [place] [phone] Pharmacist Internal Medicine 07/28/24 01/30/25 Mian Gillette Materials Management ClerkQuarter Supervisor 12/29/23 [facility] 07/10/24 documented as of this encounter
[2025-04-28 14:02] LABS: Alanine Aminotransferase 21 U/L (0-40); Albumin Level 4.3 g/dL (3.5-5.0); Alkaline Phosphatase 166 U/L (39-117); Anion Gap 12 (12-20); Aspartate Amino Transferase 26 U/L (5-37); Blood Urea Nitrogen 14 mg/dL (9-16); Calcium 8.9 mg/dL (8.4-10.2); Carbon Dioxide 27 mmol/L (22-29); Chloride 103 mmol/L (96-108); Estimated Glomerular Filt Rate > 60; Potassium 3.2 mmol/L (3.3-5.1); Sodium 139 mmol/L (135-145); Total Protein 7.8 g/dL (6.5-8.0)
== END 2025-04-28 11:06 | disposition home or self-care (01) ==
LOC: HO.HHCL 11:05
PROVIDERS: PCP Internal Medicine Geriatric Medicine; Visit Provider Internal Medicine Geriatric Medicine
DX: E11.69 Type 2 diabetes mellitus with other specified complication (principal); E66.9 Obesity, unspecified
CPT/HCPCS: 36415; 80053

== ENCOUNTER 2025-05-09 08:07 | Outpatient (REF) | payer MEDICAID, SELFPAY | END 2025-05-09 08:08 | disposition home or self-care (01) | LOC: HO.HHCL 08:07 | PROVIDERS: PCP Internal Medicine Geriatric Medicine; Visit Provider Internal Medicine Geriatric Medicine | DX: E11.69 Type 2 diabetes mellitus with other specified complication (principal); E66.9 Obesity, unspecified | CPT/HCPCS: 82043; 82570 ==

== ENCOUNTER 2025-05-27 08:33 | Outpatient (REF) | payer MEDICAID, SELFPAY ==
--- OUTSIDE RECORDS SUMMARY | 2025-05-27 08:53 | XMS_ITS | Encounter Summary ---
Author Organization [email or web address] Address [address] [facility] 7 [place] [address] Care Team Providers Care Insurance Sales Professional Name Role Phone Name, Scot SEARS Primary Care Provider [phone] Reason for Visit * Reason Onset Date Comments PT1 02/09/2025 Encounter Details Date Type Department Care Team ([facility] st Contact Info) Description 02/09/[address] [facility] MEDICINE [address] [place] [address] Name, MD Scot [address] [place] [address] PT1 Social History Tobacco Use Types Packs/Day [...] or facility name: [facility] - [address] [facility] [address]. Escort needed: Y/N: No Do you have a wheelchair: Y/N: No If yes- Manual or electric: N/A Visits: (3x monthly) Patient calling requesting PT1 Home Address verified: Y/N: Yes Provider name or facility name: [facility] - [address] [place] [id number]. Escort needed: Y/N: No Do you have a wheelchair: Y/N: No If yes- Manual or electric: N/A Visits: (2x monthly) Patient calling requesting PT1 Home Address verified: Y/N: Yes Provider name or facility name: [address] [place] [address] [place] [address]. Escort needed: Y/N: No Do you have a wheelchair: Y/N: No If yes- Manual or electric: N/A Visits: (2x monthly) documented in this encounter Plan of Treatment Not on file documented as of this encounter Goals Goal Patient Goal Type Associated Problems Recent Progress Patient-Stated? Author Smoking cessation General No Alicia Fuentes, AnkushD documented as of this encounter Visit Diagnoses Not on filedocumented in this encounter Additional Health Concerns Assessment Noted Time PHQ-9 Depression Total Score: 15 024 10:43 AM EDT documented as of this encounter Care Teams Insurance Sales Professional Relationship Specialty Start Date End Date Name, MD Scot [address] [place] [address] PCP - General Internal Medicine 08/16/22 Mian Gillette Animal GroomerScrip Clerk 12/29/23 [facility] 07/10/24 documented as of this encounter
--- OUTSIDE RECORDS SUMMARY | 2025-05-27 08:53 | XMS_ITS | Encounter Summary ---
Author Organization [employer] Address [address] [facility] 7 [place] [address] Care Team Providers Care Pvc Monitor Name Role Phone Name, Scot SEARS Primary Care Provider Puia, Alicia PharmD Unavailable Puia, Alicia PharmD Unavailable [phone] Reason for Visit * Reason Onset Date Comments Orders Request 12/12/2023 Encounter Details Date Type Department Care Team (Late st Contact Info) Description 12/12/2023 Telephone [facility] MEDICINE [address] [place], [place] [phone] Name, MD Scot [address] [place] [address] Orders Request Social History Tobacco Use Types [...] documented as of this encounter Care Teams Pvc Monitor Relationship Specialty Start Date End Date Name, MD Scot [address] [place] [address] PCP - General Internal Medicine 08/16/22 Alicia Fuentes PharmD [address] [place] [address] Pharmacist Internal Medicine 12/18/22 01/30/25 Alicia Fuentes PharmD [address] [place] [address] Pharmacist Internal Medicine 07/28/24 01/30/25 Mian Gillette Photolith OperatorRepairer Wood Furniture 12/29/23 [facility] 07/10/24 documented as of this encounter
--- OUTSIDE RECORDS SUMMARY | 2025-05-27 08:53 | XMS_ITS | Encounter Summary ---
Author Organization [employer] Address [address] [facility] 7 [place] [address] Care Team Providers Care Inside Sales Director Name Role Phone Name, Scot SEARS Primary Care Provider Puia, Alicia PharmD Unavailable [phone] Puia, Alicia PharmD Unavailable [phone] Reason for Visit * Reason Onset Date Comments Durable Medical Equipment 08/22/2023 Encounter Details Date Type Department Care Team (Late st Contact Info) Description 08/22/2023 Telephone [facility] MEDICINE 230 [place], [place] [phone] Name, MD Scot 230 [place] [address] Durable Medical Equipment Social History Tobacco Use [...] on papers below. Please contact pt @ [phone] * Telephone Encounter - Lorraine Mccray - 08/22/2023 3:22 PM EST Tc from pt requesting for PCP to fill out a [facility] necessity form for a walker due to having hip surgery 08/26. 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 Please contact pt at [phone] (Bruneian) documented in this encounter Plan of Treatment [...] documented as of this encounter Care Teams Inside Sales Director Relationship Specialty Start Date End Date Name, MD Scot [address] [place] [address] PCP - General Internal Medicine 08/16/22 Alicia Fuentes PharmD [address] [place] [address] Pharmacist Internal Medicine 12/18/22 01/30/25 Alicia Fuentes PharmD [address] [place] [address] Pharmacist Internal Medicine 07/28/24 01/30/25 Mian Gillette Senior Property AccountantBelly Dancer 12/29/23 [facility] 07/10/24 documented as of this encounter
--- OUTSIDE RECORDS SUMMARY | 2025-05-27 08:53 | XMS_ITS | Encounter Summary ---
Author Organization [employer] Address 75 [facility] 7 [place] [address] Care Team Providers Care Carport Erector Name Role Phone Name, Scot SEARS Primary Care Provider [phone] Puia, Alicia PharmD Unavailable [phone] Puia, Alicia PharmD Unavailable [phone] Reason for Visit * Reason Onset Date Comments Medication Question 11/21/2022 Encounter Details Date Type Department Care Team (Late st Contact Info) Description 11/21/2022 Telephone [facility] MEDICINE 230 [place], [place] [phone] Name, MD Scot 230 [place] [address] Medication Question Social History Tobacco Use Types [...] on last visit Please contact pt at [phone] documented in this encounter Plan of Treatment Not on file documented as of this encounter Visit Diagnoses Not on filedocumented in this encounter Additional Health Concerns Assessment Noted Time PHQ-9 Depression Total Score: 0 08/16/20 9:25 AM EST documented as of this encounter Care Teams Carport Erector Relationship Specialty Start Date End Date Name, MD Scot 230 [place] [address] PCP - General Internal Medicine 08/16/22 Alicia Fuentes, Bob [address] [place] [address] Pharmacist Internal Medicine 12/18/22 01/30/25 Alicia Fuentes, AnkushD 230 [place] [address] Pharmacist Internal Medicine 07/28/24 01/30/25 Mian Gillette Ornament Maker HandSki Lift Operator 12/29/23 [facility] 07/10/24 documented as of this encounter
--- OUTSIDE RECORDS SUMMARY | 2025-05-27 08:53 | XMS_ITS | Encounter Summary ---
Author Organization [employer] Address [address] [facility] 7 [place] [address] Care Team Providers Care Drama Teacher Name Role Phone Name, Scot SEARS Primary Care Provider [phone] Puia, Alicia PharmD Unavailable [phone] Puia, Alicia PharmD Unavailable [phone] Reason for Visit * Reason Onset Date Comments Med Refill 10/19/2024 Encounter Details Date Type Department Care Team (Late st Contact Info) Description 10/19/2024 Telephone [facility] MEDICINE 230 [place], [place] [phone] Name, MD Scot 230 [place] [address] Med Refill Social History Tobacco Use Types [...] the past 12 months, has t he [employer], gas, oil or water [employer] threatened to shut off services in your [...] 2 Sensor) misc To be sent to: [facility] - [place], [place] - [address] [place] [address] documented in this encounter Plan of Treatment [...] documented as of this encounter Care Teams Drama Teacher Relationship Specialty Start Date End Date Name, MD Scot [address] [place] [address] PCP - General Internal Medicine 08/16/22 Alicia Fuentes PharmD [address] [place] [address] Pharmacist Internal Medicine 12/18/22 01/30/25 Alicia Fuentes PharmD [address] [place] [address] Pharmacist Internal Medicine 07/28/24 01/30/25 Mian Gillette Leak Gang SupervisorDirect Service Professional 12/29/[address] [facility] 07/10/24 documented as of this encounter
--- OUTSIDE RECORDS SUMMARY | 2025-05-27 08:53 | XMS_ITS | Encounter Summary ---
Author Organization [employer] Address [address] [facility] 7 [place] [address] Care Team Providers Care Oil Furnace Installer Name Role Phone Name, Scot SEARS Primary Care Provider Puia, Alicia PharmD Unavailable Puia, Alicia PharmD Unavailable [phone] Reason for Visit * Reason Comments Med Refill Encounter Details Date Type Department Care Team (Late st Contact Info) Description 10/02/2023 Refill [facility] MEDICINE 230 [place], [place] [phone] Name, MD Scot 230 [place] [address] Tobacco use Social History Tobacco Use Types [...] documented as of this encounter Care Teams Oil Furnace Installer Relationship Specialty Start Date End Date Name, MD Scot 230 [place] [address] PCP - General Internal Medicine 08/16/22 Alicia Fuentes PharmD 230 [place] [address] Pharmacist Internal Medicine 12/18/22 01/30/25 Alicia Fuentes PharmD [address] [place] [address] Pharmacist Internal Medicine 07/28/24 01/30/25 Mian Gillette Hospital HousekeeperHome Health Scheduler 12/29/23 [facility] 07/10/24 documented as of this encounter
--- OUTSIDE RECORDS SUMMARY | 2025-05-27 08:53 | XMS_ITS | Encounter Summary ---
Author Organization [employer] Address [address] [facility] 7t [place] [address] Care Team Providers Care Aircraft Maintenance Director Name Role Phone Name, Scot SEARS Primary Care Provider [phone] Puia, Alicia PharmD Unavailable Puia, Alicia PharmD Unavailable [phone] Reason for Visit * Reason Comments Med Refill Encounter Details Date Type Department Care Team ([facility] st Contact Info) Description 09/16/2024 Refill [facility] MEDICINE 230 [place], [place] [phone] Name, MD Scot 230 [place] [address] New onset type 2 diabetes mellitus (CMS/HCC) [...] the past 12 months, has t he [employer], gas, oil or water [employer] threatened to shut off services in your [...] Diagnosis New onset type 2 diabetes mellitus (HCC) documented in this encounter Additional Health Concerns Assessment Noted Time PHQ-9 Depression Total Score: 15 024 10:43 AM EDT documented as of this encounter Care Teams Aircraft Maintenance Director Relationship Specialty Start Date End Date Name, MD Scot [address] [place] [address] PCP - General Internal Medicine 08/16/22 Alicia Fuentes PharmD [address] [place] [address] Pharmacist Internal Medicine 12/18/22 01/30/25 Alicia Fuentes PharmD [address] [place] [address] Pharmacist Internal Medicine 07/28/24 01/30/25 Mian Gillette Crm Marketing ManagerDye Lab Technician 12/29/23 [facility] 07/10/24 documented as of this encounter
--- OUTSIDE RECORDS SUMMARY | 2025-05-27 08:53 | XMS_ITS | Encounter Summary ---
Author Organization [employer] Address 75 [facility] 7t [place] [address] Care Team Providers Care Circular Saw Filer Name Role Phone Name, Scot SEARS Primary Care Provider [phone] Puia, Alicia PharmD Unavailable Puia, Alicia PharmD Unavailable [phone] Encounter Details Date Type Department Care Team (Late st Contact Info) Description 11/21/2022 Telephone [facility] MEDICINE 230 [place], [place] [phone] Name, MD Scot 230 [place] [address] Social History Tobacco Use Types Packs/Day Years [...] documented as of this encounter Care Teams Circular Saw Filer Relationship Specialty Start Date End Date Name, MD Scot 230 [place] [address] PCP - General Internal Medicine 08/16/22 Alicia Fuentes PharmD [address] [place] [address] Pharmacist Internal Medicine 12/18/22 01/30/25 Alicia Fuentes PharmD [address] [place] [address] Pharmacist Internal Medicine 07/28/24 01/30/25 Mian Gillette Back Tender CylinderEyewear Manufacturing Supervisor 12/29/23 [facility] 07/10/24 documented as of this encounter
--- OUTSIDE RECORDS SUMMARY | 2025-05-27 08:53 | XMS_ITS | Encounter Summary ---
Author Organization [employer] Address 75 [facility] 7 [place] [address] Care Team Providers Care Powerhouse Electrician Apprentice Name Role Phone Name, Scot SEARS Primary Care Provider [phone] Puia, Alicia PharmD Unavailable [phone] Puia, Alicia PharmD Unavailable [phone] Reason for Visit * Reason Onset Date Comments Nurse Triage 01/19/2025 Encounter Details Date Type Department Care Team (Late st Contact Info) Description 01/19/2025 Telephone [facility] MEDICINE 230 [place], [place] [phone] Name, MD Scot 230 [place] [address] Nurse Triage Social History Tobacco Use Types [...] 01/19/2025 10:05 AM EDT Triage call with [facility] meat processor , [place] [id number] Pt reports a clogged sensation in left ear with minor pain on the inside. Neg for fever. Pt reports this started 2 days ago. Pt reports drainage but, has applied ear drops and noted this after a shower. Pt is unable to describe drainage. Pt is advised to come to [facility] today open till 8pm for provider [...] this symptom The caller accepted this outcome. [phone] icelandic documented in this encounter Plan of Treatment [...] documented as of this encounter Care Teams Powerhouse Electrician Apprentice Relationship Specialty Start Date End Date Name, MD Scot 230 [place] [address] PCP - General Internal Medicine 08/16/22 Alicia Fuentes, PharmD 230 [place] [address] Pharmacist Internal Medicine 12/18/22 01/30/25 Alicia Fuentes, PharmD 230 [place] [address] Pharmacist Internal Medicine 07/28/24 01/30/25 Mian Gillette Speech Lang Path TherapistEquine Breeder 12/29/23 [facility] 07/10/24 documented as of this encounter
--- OUTSIDE RECORDS SUMMARY | 2025-05-27 08:53 | XMS_ITS | Encounter Summary ---
Author Organization [employer] Address [address] [facility] 7t [place] [address] Care Team Providers Care Senior Trainer Name Role Phone Name, Scot SEARS Primary Care Provider Puia, Alicia PharmD Unavailable Puia, Alicia PharmD Unavailable Reason for Visit * Reason Comments Med Refill Encounter Details Date Type Department Care Team ([facility] st Contact Info) Description 10/18/2024 Refill [facility] MEDICINE 230 [place] [address] Puia, Alicia, PharmD 230 [place] [address] New onset type 2 diabetes mellitus (CMS/HCC) [...] the past 12 months, has t he [employer], gas, oil or water company threatened to [...] PM EST Denied. Requested in error per [facility] pharmacy team. Patient has upcoming visit [...] as of this encounter Care Teams Senior Trainer Relationship Specialty Start Date End Date Name, MD Scot [address] [place] [address] PCP - General Internal Medicine 08/16/22 Alicia Fuentes PharmD [address] [place] [address] Pharmacist Internal Medicine 12/18/22 01/30/25 Alicia Fuentes PharmD [address] [place] [address] Pharmacist Internal Medicine 07/28/24 01/30/25 Mian Gillette Fur DrummerMail Clerk 12/29/23 [facility] 07/10/24 documented as of this encounter
--- OUTSIDE RECORDS SUMMARY | 2025-05-27 08:53 | XMS_ITS | Clinical Summary ---
Author Organization [facility] Address [address] [facility] [address] [place] [address] Phone Care Team Providers Care Medical Record Specialist Name Role Phone Bib Parra MD Primary [...] file Medical Devices Not on file Insurance [facility] [place] [id number] [place] [id number] [employer] MY CARE FAMILY ACO [employer] MY CARE FAMILY ACO [employer] MY CARE FAMILY ACO [employer] MY CARE FAMILY ACO [employer] MY CARE FAMILY ACO [employer] MY CARE FAMILY ACO [employer] MY CARE FAMILY ACO [facility] MY CARE FAMILY ACO Care Teams Medical Record Specialist Relationship Specialty Start Date End Date Bib Parra MD [address] [place] [address] PCP - General 10/31/21 Additional Source Comments The information contained in this document represents components of the legal health record. It is not the complete legal health record.[facility]
--- OUTSIDE RECORDS SUMMARY | 2025-05-27 08:53 | XMS_ITS | Encounter Summary ---
Author Organization [employer] Address [address] [facility] 7t [place] [address] Care Team Providers Care Turbine Subassembler Name Role Phone Name, Scot SEARS Primary Care Provider Puia, Alicia PharmD Unavailable [phone] Puia, Alicia PharmD Unavailable [phone] Encounter Details Date Type Department Care Team (Late st Contact Info) Description 07/14/2023 Telephone [facility] MEDICINE 230 [place], [place] [phone] Name, MD Scot [address] [place] [address] Social History Tobacco Use Types Packs/Day Years [...] documented as of this encounter Care Teams Turbine Subassembler Relationship Specialty Start Date End Date Name, MD Scot 230 [place] [address] PCP - General Internal Medicine 08/16/22 Alicia Fuentes, PharmD [address] [place] [address] Pharmacist Internal Medicine 12/18/22 01/30/25 Alicia Fuentes, PharmD 230 [place] [address] Pharmacist Internal Medicine 07/28/24 01/30/25 Mian Gillette Addictions TherapistOdd Job Laborer 12/29/23 [facility] 07/10/24 documented as of this encounter
--- OUTSIDE RECORDS SUMMARY | 2025-05-27 08:53 | XMS_ITS | Encounter Summary ---
Author Organization [employer] Address [address] [facility] 7t [place] [address] Care Team Providers Care Power Cleaner Operator Name Role Phone Name, Scot SEARS Primary Care Provider Puia, Alicia PharmD Unavailable Puia, Alicia PharmD Unavailable Reason for Visit * Reason Comments Med Refill Encounter Details Date Type Department Care Team (Late st Contact Info) Description 12/12/2023 Refill [facility] [address] [place] [address] Name, MD Scot [address] [place] [address] Tobacco use Social History Tobacco Use Types [...] with others, in a hotel, in a residential, living outside on the street, on a [...] as of this encounter Care Teams Power Cleaner Operator Relationship Specialty Start Date End Date Name, MD Scot [address] [place] [address] PCP - General Internal Medicine 08/16/22 Alicia Fuentes PharmD [address] [place] [address] Pharmacist Internal Medicine 12/18/22 01/30/25 Alicia Fuentes PharmD [address] [place] [address] Pharmacist Internal Medicine 07/28/24 01/30/25 Mian Gillette Automotive Service AssistantInvoice Checker 12/29/23 [facility] 07/10/24 documented as of this encounter
--- OUTSIDE RECORDS SUMMARY | 2025-05-27 08:53 | XMS_ITS | Encounter Summary ---
Author Organization [employer] Address [address] [facility] 7 [place] [address] Care Team Providers Care Well Shooter Name Role Phone Name, Scot SEARS Primary Care Provider Puia, Alicia PharmD Unavailable [phone] Puia, Alicia PharmD Unavailable [phone] Reason for Visit * Reason Onset Date Comments Appointment Request 03/18/2023 Encounter Details Date Type Department Care Team (Late st Contact Info) Description 03/18/2023 Telephone [facility] MEDICINE 230 [place], [place] [phone] Name, MD Scot 230 [place] [address] Appointment Request Social History Tobacco Use Types [...] recent chest scans. Please contact pt at [phone] (Maltese) documented in this encounter Plan of Treatment [...] documented as of this encounter Care Teams Well Shooter Relationship Specialty Start Date End Date Name, MD Scot [address] [place] [address] PCP - General Internal Medicine 08/16/22 Alicia Fuentes PharmD [address] [place] [address] Pharmacist Internal Medicine 12/18/22 01/30/25 Alicia Fuentes PharmD [address] [place] [address] Pharmacist Internal Medicine 07/28/24 01/30/25 Mian Gillette Chyron OperatorPelletizer Tender 12/29/23 [facility] 07/10/24 documented as of this encounter
--- OUTSIDE RECORDS SUMMARY | 2025-05-27 08:53 | XMS_ITS | Encounter Summary ---
Author Organization [employer] Address [address] [facility] 7t [place] [address] Care Team Providers Care Wooden Boat Builder Name Role Phone Name, Scot SEARS Primary Care Provider [phone] Reason for Visit * Reason Comments Med Refill Encounter Details Date Type Department Care Team ([facility] st Contact Info) Description 05/27/2025 Refill [facility] [address] [place] [address] Name, MD Scot [address] [place] [address] Social History Tobacco Use Types Packs/Day Years [...] documented as of this encounter Care Teams Wooden Boat Builder Relationship Specialty Start Date End Date Name, MD Scot 230 [place] [address] PCP - General Internal Medicine 08/16/22 Mian Gillette Software SalesDecatizer 12/29/23 [facility] 07/10/24 documented as of this encounter
--- OUTSIDE RECORDS SUMMARY | 2025-05-27 08:53 | XMS_ITS | Encounter Summary ---
Author Organization [email or web address] Address [address] [facility] 7 [place] [address] Care Team Providers Care Grading Machine Feeder Name Role Phone Name, Scot SEARS Primary Care Provider [phone] Puia, Alicia PharmD Unavailable [phone] Puia, Alicia PharmD Unavailable [phone] Reason for Visit * Reason Onset Date Comments Med Refill 07/14/2023 Encounter Details Date Type Department Care Team (Late st Contact Info) Description 07/14/2023 Telephone [facility] MEDICINE 230 [place], [place] [phone] Name, MD Scot [address] [place] [address] Med Refill Social History Tobacco Use Types [...] 11:00 AM EST Medication was sent to [facility] on 02/14/23 with 11 refills. * Telephone Encounter - Luis Faulkner - 07/14/2023 10:51 AM EST Tc from pt requesting a refill for Umeclidinium [place] (Incruse Ellipta) 62.5 MCG/ACT aerosol powder. documented [...] documented as of this encounter Care Teams Grading Machine Feeder Relationship Specialty Start Date End Date Name, MD Scot [address] [place] [address] PCP - General Internal Medicine 08/16/22 Alicia Fuentes, Bob [address] [place] [address] Pharmacist Internal Medicine 12/18/22 01/30/25 Alicia Fuenets, Bob [address] [place] [address] Pharmacist Internal Medicine 07/28/24 01/30/25 Mian Gillette Mixed Signal Design EngineerHand Bobbin Cleaner 12/29/23 [facility] 07/10/24 documented as of this encounter
--- OUTSIDE RECORDS SUMMARY | 2025-05-27 08:53 | XMS_ITS | Encounter Summary ---
Author Organization [employer] Address [address] [facility] 7 [place] [address] Care Team Providers Care Trial Court Justice Name Role Phone Name, Scot SEARS Primary Care Provider Puia, Alicia PharmD Unavailable Puia, Alicia PharmD Unavailable Reason for Visit * Reason Comments Med Refill Encounter Details Date Type Department Care Team (Late st Contact Info) Description 12/12/2023 Refill [facility] MEDICINE 230 [place], [place] [phone] Radha Foster DO 230 [place], [place] [phone] Social History Tobacco Use Types Packs/Day Years [...] with others, in a hotel, in a halfway, living outside on the street, on a [...] documented as of this encounter Care Teams Trial Court Justice Relationship Specialty Start Date End Date Name, MD Scot 230 [place] [address] PCP - General Internal Medicine 08/16/22 Alicia Fuentes PharmD 230 [place] [address] Pharmacist Internal Medicine 12/18/22 01/30/25 Alicia Fuentes PharmD [address] [place] [address] Pharmacist Internal Medicine 07/28/24 01/30/25 Mian Gillette Explosive Ordnance TechnicianData Engineer 12/29/23 [facility] 07/10/24 documented as of this encounter
--- OUTSIDE RECORDS SUMMARY | 2025-05-27 08:53 | XMS_ITS | Clinical Summary ---
Author Organization [employer] Address [address] [facility] 7[address] [place] [address] Care Team Providers Care Poiser Name Role Phone Name, Scot SEARS Primary Care Provider [phone] Allergies No known active allergies Medications * This document contains information received from the source organization and may not represent a complete record from that organization. Blood Pressure Monitoring (Omron 3 Series BP Monitor) deviceIndicatio ns:Primary hypertension 1 each by Other route Once daily. USE TO CHECK BLOOD PRESSURE EVERY DAY, CALL MD IF > 170/100 1 each 024 Active Umeclidinium [place] (Incruse Ellipta) 62.5 MCG/ACT aerosol powder Inhale 1 each in the morning. 1 each Active omeprazole (PriLOSEC) [address] capsule Take 40 mg by mouth in the morning. 024 Active aspirin 81 MG chewable tabletIndicatio ns:New onset type 2 diabetes mellitus (HCC) Chew 1 tablet (81 mg) Once per day. 30 tablet 024 2024 Active albuterol (Ventolin HFA) 108 (90 Base) MCG/ACT inhalerIndicati ons:Suspected chronic obstructive pulmonary disease based on initial evaluation INHALE 1 TO 2 PUFFS FOUR TIMES DAILY NEEDED FOR WHEEZING OR SHORTNESS OF BREATH 18 g 2 Active Advair Diskus 500-50 MCG/ACT aerosol powder INHALE 1 PUFF TWICE DAILY. RINSE MOUTH AFTER USING. 024 Active Continuous Glucose Vegetable Packer (FreeStyle Neel 3 [place]) deviceIndicatio ns:New onset type 2 diabetes mellitus (HCC) 1 each Once per day. Use as directed for CGM 1 each Active fluticasone (Flonase) 50 MCG/ACT nasal spray INSTILL 2 SPRAYS IN EACH NOSTRIL ONCE DAILY 48 g Active Alcohol Swabs (Alcohol Prep) 70 % pads Use up to three times daily before insulin injections & BG testing, as directed 100 each Active empagliflozin (Jardiance) 10 MGIndications:N ew onset type 2 diabetes mellitus (HCC) Take 1 tablet (10 mg) by mouth Once per day. 30 tablet Active TRUEplus Lancets 33G miscIndications :New onset type 2 diabetes mellitus (HCC) Use to test blood sugar 2 time(s) daily 100 each Active Continuous Glucose Sensor (FreeStyle Neel 3 Plus Sensor) miscIndications :New onset type 2 diabetes mellitus (HCC) Apply 1 every 15 days as directed for CGM 2 each Active glucose blood (FreeStyle Precision Luis Alberto Test) test stripIndication s:New onset type 2 diabetes mellitus (HCC) Use to test blood sugar up to 2 times daily, as directed 100 each Active atorvastatin (Lipitor) 80 MG tablet Take 1 tablet (80 mg) by mouth Once per day. 90 tablet 3 Active glucagon (Baqsimi Two Pack) 3 MG/DOSE nasal powderIndicatio ns:New onset type 2 diabetes mellitus (HCC) Administer 3 mg via 1 device into the nostril for hypoglycemia with loss of consciousness. If no response after 15 minutes administer an additional dose via 2nd device into other nostril. 2 each 1 Active carboxymethylce llulose (Refresh Tears) 0.5 % ophthalmic solution Administer 1 drop into both eyes if needed in the morning, at noon, and at bedtime for dry eyes. 15 mL 025 2025 Active Dupilumab (Dupixent) 100 MG/0.67ML solution prefilled syringe Inject 100 mg under the skin See administration instructions. Every 14 days prescribed at [facility] pulmonology (Olamide) Active furosemide (Lasix) 20 MG tablet Take 1 tablet (20 mg) by mouth Once per day. 30 tablet 025 2025 Active hydrOXYzine pamoate (Vistaril) 25 MG capsule TAKE 1 CAPSULE BY MOUTH AT BEDTIME FOR ITCHING 30 capsule 2 Active Trulicity 1.5 MG/0.5ML solution auto-injector INJECT ONE PEN (=1.5MG) SUBCUTANEOUSLY ONCE A WEEK DIRECTED 2 mL 2 Active methocarbamol (Robaxin) 750 MG tablet Take 1 tablet by mouth if needed in the morning, at noon, and at bedtime (pain). 024 2024 Discontinued(T herapy completed) hydrOXYzine pamoate (Vistaril) 25 MG capsule TAKE 1 CAPSULE BY MOUTH AT BEDTIME NEEDED FOR ITCHING 30 capsule 2 025 2024 Discontinued furosemide (Lasix) 80 MG tablet Take 80 mg by mouth in the morning. 025 2024 Discontinued(D ose adjustment) Trulicity 1.5 MG/0.5ML solution auto-injector INJECT ONE PEN (=1.5MG) SUBCUTANEOUSLY ONCE A WEEK DIRECTED 2 mL 2 025 2024 Discontinued furosemide (Lasix) 40 MG tablet Take 1 tablet (40 mg) by mouth Once per day. 30 tablet 11 025 2024 Discontinued(D ose adjustment) Active Problems Problem Noted Date Diagnosed Date [...] Chronic pain syndrome 09/01/2024 Asthma-COPD overlap syndrome (CMS/HCC) DKA (diabetic ketoacidosis) 09/01/2024 Encounter for preoperative pulmonary examination 09/01/2024 Environmental allergies 09/01/2024 GERD (gastroesophageal reflux disease) Hyperlipidemia 09/01/2024 Impingement syndrome, shoulder, left 09/01/2024 Intractable low back pain 09/01/2024 Lower extremity edema 09/01/2024 Morbid obesity (CMS/HCC) 09/01/2024 Obesity 09/01/2024 Dyspnea on exertion 09/01/2024 [...] risk. Referred to CDTM program, spoke with [facility] pharmacist who plans to f/u with [...] intervention , [facility], and Patient to [...] Encounters Date Type Department Care Team Description 05/27/2025 Refill [facility] [address] [place] [phone] Scot Mathews MD 05/24/2025 Refill [facility] [address] [place] [phone] Scot Mathews MD 05/20/[address] [address] Scot Mathews MD Referral 05/16/2025 Travel 05/12/[address] [address] Scot Mathews MD 05/11/2025 Results Follow-Up [address] [address] Scot Mathews MD Comprehensive Metabolic Panel, Albumin, Random Urine W/Creatinine 04/28/2025 10:30 AM EDT Office Visit [address] [address] Scot Mathews MD Type 2 diabetes mellitus with obesity (CMS/HCC) (CMS/HCC) (Primary Dx); Tobacco dependence; Encounter for screening for malignant neoplasm of colon 04/28/2025 Travel 04/27/2025 Telephone [facility] [address] [place], [place] [phone] Scot Mathews MD Chart Prep 04/19/[address] [address] Scot Mathews MD Appointment Request 03/30/2025 2:15 PM EDT Office Visit [facility] [address] [place] [phone] Steve, Hattie, OD Presbyopia (Primary Dx) 03/30/2025 Travel 03/03/2025 2:00 PM EDT Office Visit [facility] [address] [place] [address] Germania Victoria, OD Type 2 diabetes mellitus without ophthalmic manifestations (CMS/HCC) (Primary Dx); Macular scar of right eye; Dry eyes; Anisocoria; Presbyopia 03/03/2025 Travel from Last 3 Months Immunizations Immunization Administration [...] 04/28/2025 10:37 AM EDT Plan of Treatment Health Maintenance Due Date Last Done Comments CT Colonography 1965 Colonoscopy 1965 Colorectal Cancer Screening 1965 Dental Prophylaxis 1965 FIT DNA/Cologuard 1965 FIT 1965 FOBT 1965 Sigmoidoscopy 1965 Dental X-Ray: Bitewings 08/31/2023 08/30/2022 Influenza Vaccine (#1) 2025 , 05/14/2023, 06/06/2022 Alcohol/Substance Use Screening 07/21/2025 07/21/2024 Diabetes: Hemoglobin A1C 08/02/2025 06/2 025, 09/10/2024, 07/21/2024, Additional history exists Dental Oral Exam 08/11/2025 02/08/2025, 08/30/2022 Dental X-Ray: Full Mouth 08/31/2025 08/30/2022 SDOH Screening 09/10/2025 09/10/2024 Depression Monitoring 10/26/2025 04/28/2025, 025 Lipid Panel 11/05/2025 11/05/2024, 12/01/2024, 02/18/2023, Additional history exists Diabetes: Foot Exam 04/28/2026 04/28/2025, 04/28/2025, 04/28/2025, Additional history exists Disability Screening 04/28/2026 04/28/2025 Tobacco Screening 04/28/2026 04/28/2025 Diabetes: Urine Protein Screening 05/09/2026 05/09/2025, 07/30/2024 Eye Exam 03/03/2027 03/03/2025, 02/22, 03/03/2025, Additional history exists DTaP/Tdap/Td Vaccines (2 [...] Procedure Name Priority Date/Time Associated Diagnosis Comments ALBUMIN, RANDOM URINE W/CREATININE Routine 05/09/2025 8:12 AM EDT Type 2 diabetes mellitus with obesity (CMS/HCC) ([facility]) COMPREHENSIVE METABOLIC PANEL Routine 04/28/2025 11:23 AM EDT Type 2 diabetes mellitus with obesity (CMS/HCC) ([facility]) FUNDUS PHOTOS - OU - BOTH EYES Routine 03/03/2025 4:06 PM EDT Dry eyes PERIODIC ORAL EVALUATION - ESTABLISHED PATIENT Routine 02/08/2025 10:00 AM EDT POCT GLYCATED HEMOGLOBIN, TOTAL Routine 01/31/2025 10:20 AM EDT Type 2 diabetes mellitus with hypoglycemia without coma, unspecified whether shelter insulin use (CMS/[facility]) LIPID PANEL, STANDARD Routine 11/05/2024 11:35 AM EDT HEPATITIS C ANTIBODY Routine 11/05/2023 8:18 AM EDT Need for hepatitis C screening test HIV 1/2 ANTIGEN/ANTIBODY, FOURTH GENERATION W/RFL Routine 11/05/2023 8:18 AM EDT Encounter for screening for HIV INTRAORAL - COMPLETE SERIES OF RADIOGRAPHIC IMAGES Routine 08/30/2022 8:00 AM EST from Last 3 Months or Most Recently Relevant to Health Maintenance Results * Albumin, Random Urine W/Creatinine (05/09/2025 8:12 AM EDT) Creatinine, Urine 9.52 mg/dL [facility] Microalbumin Urine <5.0 mg/L H [facility] Microalbum Creatinine Ratio Ur TNP <30 ug/mg cr [facility] Comment:Unable to calculate albumin/creatinine ratio due to lowmicroalbumin or creatinine result. Urine (Urine, Random) 05/09/2025 8:12 AM EDT 05/09/2025 11:20 AM EDT us Scot Mathews MD LAB URINE ORDERABLES Final Resul t [facility] [address] [place] [phone] * (ABNORMAL) Comprehensive Metabolic Panel (04/28/2025 11:23 AM EDT) Sodium 139 135 - 145 mmol/L [facility] Potassium 3.2(L) 3.3 - 5.1 mmol/L [facility] Chloride 103 96 - 108 mmol/L [facility] Carbon Dioxide 27 22 - 29 mmol/L [facility] Anion Gap 12 12 - 20 [facility] Urea Nitrogen (BUN) 14 9 - 16 mg/dL [facility] Creatinine, Serum 0.93 0.5 - 1.4 mg/dL [facility] Estimated Glomerular Filt Rate >60 [facility] Comment:Chronic Kidney Disea se: Estimated GFR < 60 mL/min/[id number] Kidney Disease: Estimated GFR < 15 mL/min/1.73m2 Glucose 87 60 - 115 mg/dL [facility] Calcium 8.9 8.4 - 10.2 mg/dL [facility] Bilirubin, Total 0.5 0.0 - 1.0 mg/dL [facility] Aspartate Amino Transferase 26 5 - 37 U/L [facility] Alanine Aminotransferase 21 0 - 40 U/L [facility] Total Protein 7.8 6.5 - 8.0 g/dL [facility] Albumin Level 4.3 3.5 - 5.0 g/dL [facility] Alkaline Phosphatase 166(H) 39 - 117 U/L [facility] Blood Venous blood specimen / Unknown 04/28/2025 11:23 AM EDT 04/28/2025 1:28 PM EDT us Scot Mathews MD LAB BLOOD ORDERABLES Final Resul t [facility] [address] [place], [place] [phone] * Fundus Photos - OU - Both Eyes (03/03/2025 4:06 PM EDT) Narrative Germania Victoria, OD - 03/03/2025 4:06 PM EDT FUNDUS [...] understanding of findings and management plan. us Solo Esme OD OPHTH PHOTOGRAPHY Final Result * POCT HGB A1C (01/31/2025 10:20 AM EDT) Hemoglobin A1C 5.6 4.0 - 6.0 % QC Media Lot # [id number] Blood 01/31/2025 10:2 0 AM EDT Scot Mathews MD POINT OF CARE TEST ENTER/EDIT OR DERABLES Final Result * (ABNORMAL) Lipid Panel, Standard (11/05/2024 11:35 AM EDT) Triglycerides 278(H) <150 mg/dL [facility] Comment:Desirable Triglyceri de: less than 150 mg/dLBorderline High Triglyceride 150-199 mg/dLHigh Triglyceride: 200-499 mg/dLVery High Triglyceride: greater than or equal to 5OO mg/dL Cholesterol 189 <200 mg/dL [facility] Comment:Desirable Cholestero l: less than 200 mg/dLBorderline High Cholesterol: 200-239 mg/dLHigh Cholesterol: greater than 239 mg/dL LDL Cholesterol Calculated 101(H) <100 mg/dL [facility] Comment:Desirable LDL: less than 100 mg/dLNear Optimal/Above Optimal LDL: 110- 129 mg/dLBorderline High LDL: 130-159 mg/dLHigh LDL: 160-189 mg/dLVery High LDL: greater than or equal to 190 mg/dL HDL Cholesterol 33(L) >40 mg/dL [facility] Comment:Desirable HDL: great er than 40 mg/dL Note: This HDL assay may give artificially low results in patients with liver disease. 11/05/2024 11:3 5 AM EDT 11/05/2024 1:32 PM EDT us Scot Mathews MD LAB BLOOD ORDERABLES Final Resul t Performing Organization Address [facility] Co de Phone Number [facility] [address] [place] [phone] * Hepatitis C Ab (11/05/2023 8:18 AM EDT) Hepatitis C Antibody Nonreactive Nonreactive [facility] Comment:Antibodies to HCV no t detected; does not exclude early acuteHCV infection. Blood Venous blood specimen / Unknown 11/05/2023 8:18 AM EDT 11/05/2023 11:14 AM EDT us Scot Mathews MD LAB BLOOD ORDERABLES Final Resul t Performing Organization Address City/[facility] Co de Phone Number [facility] [address] [place] [phone] * HIV-1/2 Antigen and Antibodies, Fourth Generation, with Reflexes (11/05/2023 8:18 AM EDT) HIV AB/AG Nonreactive Nonreactive [facility] Comment:HIV-1 p24 Ag and/or HIV-1/HIV-2 Ab not detected.A test result that is nonreactive does not exclude thepossibility of exposure to or infection with HIV-1 and/orHIV-2. Nonreactive results in this assay for individualswith prior exposure to HIV-1 and/or HIV-2 may be due toantigen and antibody levels that are below the limit ofdetection of this assay.The [employer] HIV Ag/Ab Combo assay result andsupplemental assay results should be interpreted inconjunction with the patient's clinical presentation,history and other laboratory results. If the results areinconsistent with clinical evidence, additional testing issuggested to confirm the result. Blood Venous blood specimen / Unknown 11/05/2023 8:18 AM EDT 11/05/2023 11:14 AM EDT us Scot Mathews MD LAB BLOOD ORDERABLES Final Resul t [facility] [address] [place] [phone] from Last 3 Months or Most Recently Relevant to Health Maintenance Insurance [facility] C3 DENTAL-[facility] MEDICAID STAND ADULT Care Teams Poiser Relationship Specialty Start Date End Date Name, MD Scot [address] [place] [phone] PCP - General Internal Medicine 08/16/22 Mian Gillette Nurse Chemical DependencyManager Sound 12/29/23 [facility] 07/10/24
--- OUTSIDE RECORDS SUMMARY | 2025-05-27 08:53 | XMS_ITS | Encounter Summary ---
Author Organization [employer] Address [address] [facility] 7 [place] [address] Care Team Providers Care Pay Agent Name Role Phone Name, Scot SEARS Primary Care Provider [phone] Reason for Visit * Reason Comments Med Refill Encounter Details Date Type Department Care Team (Late st Contact Info) Description 05/24/2025 Refill [facility] [address] [place] [address] Name, MD Scot [address] [place] [address] Social History Tobacco Use Types Packs/Day Years [...] documented as of this encounter Care Teams Pay Agent Relationship Specialty Start Date End Date Name, MD Scot [address] [place] [address] PCP - General Internal Medicine 08/16/22 Mian Gillette Roller Skate RepairerHedge Fund Accountant 12/29/23 [facility] 07/10/24 documented as of this encounter
--- OUTSIDE RECORDS SUMMARY | 2025-05-27 08:53 | XMS_ITS | Encounter Summary ---
Author Organization [employer] Address [address] [facility] 7 [place] [address] Care Team Providers Care Sales And Management Trainee Name Role Phone Name, Scot SEARS Primary Care Provider [phone] Puia, Alicia PharmD Unavailable Puia, Alicia PharmD Unavailable [phone] Reason for Visit * Reason Onset Date Comments PT1 03/02/2024 Encounter Details Date Type Department Care Team (Late st Contact Info) Description 03/02/2024 Telephone [facility] [address] [place], [place] [phone] Name, MD Scot [address] [place] [address] PT1 Social History Tobacco Use Types Packs/Day [...] with others, in a hotel, in a skilled nursing, living outside on the street, on a [...] Yes Provider name or facility name: [facility] Facility Address: [address] [place] [phone] [place] [address] [place] [phone] [place] [phone] Escort needed: Y/N: No Do you have [...] as of this encounter Care Teams Sales And Management Trainee Relationship Specialty Start Date End Date Name, MD Scot [address] [place] [address] PCP - General Internal Medicine 08/16/22 Alicia Fuentes PharmD [address] [place] [address] Pharmacist Internal Medicine 12/18/22 01/30/25 Alicia Fuentes PharmD [address] [place] [address] Pharmacist Internal Medicine 07/28/24 01/30/25 Mian Gillette Air Conditioning Sheet Metal InstallerBaker Laboratory 12/29/23 [facility] 07/10/24 documented as of this encounter
--- OUTSIDE RECORDS SUMMARY | 2025-05-27 08:53 | XMS_ITS | Encounter Summary ---
Author Organization [employer] Address [address] [facility] 7 [place] [address] Care Team Providers Care Contract Analyst Name Role Phone Name, Scot SEARS Primary Care Provider Puia, Alicia PharmD Unavailable Puia, Alicia PharmD Unavailable [phone] Reason for Visit * Reason Onset Date Comments Referral 10/09/2022 Encounter Details Date Type Department Care Team (Late st Contact Info) Description 10/09/2022 Telephone [facility] [address] [place], [place] [phone] Name, MD Scot [address] [place] [address] Referral Social History Tobacco Use Types Packs/Day [...] a referral to be [facility] at the [facility] Please contact mom at [phone] documented in this encounter Plan of Treatment Not on file documented as of this encounter Visit Diagnoses Not on filedocumented in this encounter Additional Health Concerns Assessment Noted Time PHQ-9 Depression Total Score: 0 08/16/20 9:25 AM EST documented as of this encounter Care Teams Contract Analyst Relationship Specialty Start Date End Date Name, MD Scot [address] [place] [address] PCP - General Internal Medicine 08/16/22 Alicia Fuentes PharmD [address] [place] [address] Pharmacist Internal Medicine 12/18/22 01/30/25 Alicia Fuentes PharmD [address] [place] [address] Pharmacist Internal Medicine 07/28/24 01/30/25 Mian Gillette Chemistry Department ChairGrinder Operator Surface Tool 12/29/23 [facility] 07/10/24 documented as of this encounter
--- OUTSIDE RECORDS SUMMARY | 2025-05-27 08:54 | XMS_ITS | Encounter Summary ---
Author Organization [facility] Address [address] [place] [address] Phone Care Team Providers Care Bobbin Collector Name Role Phone Bib Parra MD Primary Care Pro vider Encounter Details Date Type Department Care Team (Late st Contact Info) Description 10/31/2021 Procedure Pass [facility] - Endoscopy - [place] [address] [place] [phone] Social History Tobacco Use Types Packs/Day Years [...] on filedocumented in this encounter Care Teams Bobbin Collector Relationship Specialty Start Date End Date Bib Parra MD [address] [place] [address] PCP - General 10/31/21 documented as of this encounter Additional Source Comments The information contained in this document represents components of the legal health record. It is not the complete legal health record.[facility]
[2025-05-27 11:53] LABS: Anion Gap 12 (12-20); Blood Urea Nitrogen 18 mg/dL (9-16); Calcium 8.9 mg/dL (8.4-10.2); Carbon Dioxide 24 mmol/L (22-29); Chloride 109 mmol/L (96-108); Estimated Glomerular Filt Rate > 60; Potassium 4.0 mmol/L (3.3-5.1); Sodium 141 mmol/L (135-145)
== END 2025-05-27 08:34 | disposition home or self-care (01) ==
LOC: HO.HHCL 08:33
PROVIDERS: PCP Internal Medicine Geriatric Medicine; Visit Provider Internal Medicine Geriatric Medicine
DX: E87.6 Hypokalemia (principal)
CPT/HCPCS: 36415; 80048

== ENCOUNTER 2025-07-29 09:00 | Outpatient (REF) | payer MEDICAID, SELFPAY ==
--- NOTE | ~2025-07-29 | CT_ITS ---
EXAMINATION: CT LUNG SCREENING HISTORY: F17.210 - Nicotine dependence, cigarettes, uncomplicated TECHNIQUE: Low dose axial images were obtained from the sternal notch to upper abdomen without IV contrast per standard departmental protocol. Sagittal and coronal reformatted images were also obtained and reviewed. One or more of the following techniques was used for dose reduction: Automated exposure control, adjustment of the mA and/or kV according to patient size, use of iterative reconstruction technique. DLP: 72 mGy-cm COMPARISON: Comparison is made with the prior examination dated 08/12/2024. FINDINGS: Lung nodules: Again seen is a calcified granuloma in the right upper lobe (series 5, image 51). There is a 10 x 8 mm nodule in the right lower lobe (series 5, image 73) without significant change. No new pulmonary nodules are identified. Emphysema: mild to moderate. Coronary Calcification: mild Aortic Arch Calcification: mild Potentially Significant Incidentals : none Additional Chest Findings: There is no pleural or pericardial effusion. No mediastinal or axillary lymphadenopathy is identified. There are multiple old right rib fractures. Visualized upper abdomen: Again seen is a probable 2.5 cm cyst or hemangioma in the left lobe of the liver. The visualized portions of the spleen and adrenals have an unremarkable unenhanced appearance. CT/CT lung screening IMPRESSION: No suspicious pulmonary nodules are identified. LUNG-RADS ASSESSMENT: Lung-RADS 2: Benign MANAGEMENT: Continue annual screening with LDCT in 12 months Category S: N/A Electronically signed by: Albert Gonsales MD 07/29/2025 09:40 AM [facility]
== END 2025-07-29 09:01 | disposition home or self-care (01) ==
LOC: HO.CT 09:00
PROVIDERS: PCP Internal Medicine Geriatric Medicine; Visit Provider Physician Assistant Medical
DX: F17.210 Nicotine dependence, cigarettes, uncomplicated (principal); Z12.2 Encounter for screening for malignant neoplasm of respiratory organs
CPT/HCPCS: 71271; G0296

== ENCOUNTER → 2025-07-29 09:02 | Outpatient (BNV) | payer MEDICAID, SELFPAY | PROVIDERS: PCP Internal Medicine Geriatric Medicine; Visit Provider Radiology Diagnostic Radiology | DX: F17.210 Nicotine dependence, cigarettes, uncomplicated (principal) | CPT/HCPCS: 71271 ==

== ENCOUNTER 2025-07-29 10:07 | Outpatient (AMB) | payer MEDICAID, SELFPAY ==
--- NOTE | 2025-07-29 08:16 | A.OFFVIS_ITS ---
Intake Visit Reasons: LDCT Allergies No Known Allergies Allergy (Verified 04/27/25 13:57) HPI HPI LDCT: Details: Initial visit for this 60yo smoker with a 30+PYH. Patient started smoking at age 14 for 46 years Max 2ppd. Now 1/2ppd. . Denies marijuana use. Denies second hand smoke exposure. Denies exposure to chemicals or substances like asbestos. . Denies known family history of lung cancer. Denies personal history of cancers. Denies chest CT in last year. 07/[address] showed no suspicious nodules. . Denies recent travel outside the [place]. Denies recent respiratory illness or recent hospitalization for respiratory issues. Denies testing positive for COVID. Admits receiving COVID Vaccine. . Denies fever, chills, new/worsening cough, hemoptysis, hoarseness or dysphagia. Denies significant chest pain, significant dyspnea or unintentional weight loss. Patient Lung Cancer Screening Questionnaire reviewed with patient by provider. . Shared Decision Making Completed. Patient meets criteria. Discussed in detail with patient, the risk vs benefit of LDCT screening. Patient consents to proceed with scan. Discussed smoking cessation. [facility] Medical History (Updated 07/29/25 @ 10:17 by Luisa Lopez PA-C) Nicotine dependence, cigarettes, uncomplicated Lipoma of right shoulder Asthma-COPD overlap syndrome DKA (diabetic ketoacidosis) Acute kidney injury DJD (degenerative joint disease) Back pain Morbid obesity Umbilical hernia, incarcerated Atypical chest pain COPD (chronic obstructive pulmonary disease) Hyperlipidemia HTN (hypertension) Osteoarthritis of right hip Surgical History Status post excision of lipoma (~09/02/24) History of umbilical hernia repair (~06/18/24) Status post total hip replacement, right Family History Mother Diabetes Hypertension Heart attack Father Hypertension Heart attack Social History (Updated 07/29/25 @ 10:18 by Luisa Lopez PA-C) Household Members: None Household Members Other:: rents a room in a house Housing: Apartment Housing Other:: Rents a room Are you a primary managed care provider to a significant other at home: No Do you presently have visiting nurse or other home services: No Alcohol intake: never Patient Tobacco Use Status: Current everyday Tobacco user Tobacco use type: Cigarette Years Smoked: onset 14yo, x46yrs, max 2ppd, now 1/2ppd - 30+PYH) e-Cigarette/Vaping Use: Never Used Second Hand Smoke Exposure: No service: No Assessment & Plan Assessment & Plan (1) Nicotine dependence, cigarettes, uncomplicated: Comment: (onset 14yo, x46yrs, max 2ppd, now 1/2ppd - 30+PYH) Code(s): F17.210 - Nicotine dependence, cigarettes, uncomplicated Category: Medical Plan: - SDM visit completed today in office. - Patient meets criteria for LDCT for lung cancer screening purposes and is asy mptomatic. - Smoking cessation counseling offered. Patients can always call [phone]. - Will arrange for a LDCT scan of the chest for screening purposes at [facility]. - Risks, benefits, and alternatives were discussed in detail and the patient agrees to proceed. - Risks discussed include but are not limited to: radiation exposure, anxiety during testing and while awaiting results, false negatives, false positives and possibility of additional intervention such as further imaging or surgical procedures for benign disease. - Benefits are obviously detection of lung cancer at an early stage which can lead to improved outcomes. - Discussed the importance of screening program compliance with adherence to yearly LDCT scan as scheduled - or sooner interval scans for personalized screening regimen. - Discussed follow up plan. Our office will send a letter discussing results and if needed set up phone call and office visit based on CT findings. - Patient educated on results categorization and the management decisions for suspicious findings potentially found on the screening LDCT scan. Any patient with a Lung RADS score of 3 or 4 will be reviewed by a multidisciplinary team at [facility] to form a plan of action in regards to scan findings. - If further work up is warranted for a suspicious lung finding this will be followed by the Lung Cancer Screening program in conjunction with the Thoracic Surgery Department at [facility]. - A copy of the office note and LDCT will be sent to the patient's PCP - as well as documentation on any associated further plans of care. - Incidental findings on LDCT are the PCP's responsibility. These findings are indicated with an S finding on the LDCT Assessment. A note discussing the findings will be sent to the PCP who is then responsible for further management. - All questions answered.? Coding Level of Care Code Lung Cancer Screening G0296 Diagnoses Nicotine dependence, cigarettes, uncomplicated F17.210
--- NOTE | 2025-07-29 10:11 | MHC.OFFVIS ---
Intake Visit Reasons: LDCT Allergies No Known Allergies Allergy (Verified 04/27/25 13:57) [facility] Medical History (Updated 04/27/25 @ 14:11 by Conor Bravo MD) Nicotine dependence, cigarettes, uncomplicated Lipoma of right shoulder Asthma-COPD overlap syndrome DKA (diabetic ketoacidosis) Acute kidney injury DJD (degenerative joint disease) Back pain Morbid obesity Umbilical hernia, incarcerated Atypical chest pain COPD (chronic obstructive pulmonary disease) Hyperlipidemia HTN (hypertension) Osteoarthritis of right hip Surgical History Status post excision of lipoma (~09/02/24) History of umbilical hernia repair (~06/18/24) Status post total hip replacement, right Family History Mother Diabetes Hypertension Heart attack Father Hypertension Heart attack Social History Household Members: None Household Members Other:: rents a room in a house Housing: Apartment Housing Other:: Rents a room Are you a primary career guidance technician to a significant other at home: No Do you presently have visiting nurse or other home services: No Alcohol intake: never Patient Tobacco Use Status: Current everyday Tobacco user Tobacco use type: Cigarette Cigarettes Per Day: 5 Years Smoked: 25 e-Cigarette/Vaping Use: Never Used Second Hand Smoke Exposure: No service: No Assessment & Plan Assessment & Plan (1) Nicotine dependence, cigarettes, uncomplicated: Code(s): F17.210 - Nicotine dependence, cigarettes, uncomplicated Category: Medical Coding Diagnoses Nicotine dependence, cigarettes, uncomplicated F17.210
== END 2025-07-29 11:27 | disposition home or self-care (01) ==
LOC: HO.HPS 10:08
PROVIDERS: PCP Internal Medicine Geriatric Medicine; Referring Provider Internal Medicine Pulmonary Disease; Visit Provider Physician Assistant Medical
DX: F17.210 Nicotine dependence, cigarettes, uncomplicated (principal)
CPT/HCPCS: G0296